=== PATIENT | female | born 1965 | race Caucasian/White ===

== ENCOUNTER 2017-08-05 17:20 | Inpatient (IN) | payer MEDICARE, OTHER, SELFPAY ==
[2017-08-05] VITALS (12 sets, daily range): BP systolic 134–171; BP diastolic 63–85; PULSE 73–88; RESP 15–23; TEMP 36.2–37.2; O2SAT 80–100; BMI 73.2; BMI 74.2
[2017-08-05] MEDS: Ipratropium/Albuterol Sulfate 3 ML AMPUL.NEB INHALATION ×2 (17:57→23:43)
[2017-08-05] MEDS: 0.9% Normal Saline 1,000 ML 150 ML IV (18:06)
[2017-08-05] MEDS: MethylPREDNISolone 125 MG/2 ML Vial IV (18:07)
--- NOTE | 2017-08-05 18:10 | RAD_ITS ---
STUDY: X-RAY CHEST REASON FOR EXAM: Female, 52 years old. SOB / SOA TECHNIQUE: Single frontal view of the chest. COMPARISON: December 12, 2016 FINDINGS: Chronic appearing increased interstitial lung markings. Right lower lobe infiltrate. There is no demonstrated pleural abnormality. Enlarged heart size. Normal mediastinum and negra. Normal visualized pulmonary arteries. There is atherosclerotic calcification of the aortic arch with tortuosity. There are diffuse degenerative changes of the visualized thoracic spine. There is degenerative osteoarthritis of the bilateral shoulders. There is no demonstrated abnormality of the visualized soft tissue structures of the upper abdomen. RAD/Chest PA and Lateral IMPRESSION: Right lower lobe pneumonia. Electronically Signed: Bertrand Noel MD at 18:32 EST , Service support ,
[2017-08-05 18:13] LABS: Absolute Lymphocyte Count 0.93 X10^3/ul (0.83-4.51); Absolute Neutrophil Count 5.3 X10^3/uL (2.0-7.7); Basophil# 0.02 X10^3/uL; Basophil% 0.3 % (0-1); Eosinophil# 0.81 X10^3/uL; Hematocrit 26.3 % (37-47); Hemoglobin 7.1 g/dl (12.0-15.0); Lymphocyte # 0.93 X10^3/ul (4.0); Lymphocyte % 12.6 % (19-41); Mean Corpuscular Hgb 24.7 pg (27.0-32.0); Mean Corpuscular Volume 91.6 fL (81-99); Mean Platelet Vol. 9.4 fl (6.2-12.0); Monocyte# 0.34 X10^3/uL; Monocyte% 4.6 % (0-10); Neutrophil # 5.25 X10^3/uL (2.7-7.7); Platelet Count 187 K/mm3 (150-450); RBC Distribution Width CV 16.6 % (11.6-14.6); Red Blood Count 2.87 M/mm3 (4.2-5.4); White Blood Count 7.4 K/mm3 (4.4-11.0)
[2017-08-05 18:14] LABS: POSITIVE COUNT NO; POSITIVE DIFFERENTIAL NO; POSITIVE MORPHOLOGY NO
[2017-08-05 18:30] LABS: Anion Gap 3 (5-15); BUN 11 mg/dL (7-18); BUN/Creat Ratio 15.5 RATIO (10-20); Calcium,Total 8.2 mg/dL (8.5-10.1); Chloride 107 mmol/L (98-107); Creatinine, Serum 0.71 mg/dL (0.55-1.02); EST Glomerular Filtration Rate 92 mL/min (>60); Est Glom Filt Rate - Afr Amer 111 mL/min (>60); Estimated Creatinine Clearance 66.58 ml/min; Glucose 92 mg/dL (74-106); Potassium 4.3 mmol/L (3.5-5.1); Sodium Level 146 mmol/L (136-145)
[2017-08-05 18:35] LABS: Lactic Acid 1.8 mmol/L (0.4-2.0)
--- NOTE | 2017-08-05 19:53 | ED.RN ---
THIS RN ATTEMPTED TO START LEVAQUIN IV FOR PT, ADVISED PT OF MED TO BE GIVEN. PT STATES I CAN'T TAKE THAT, IT MAKES MY HEART BEAT TOO FAST. NOTIFIED, RABIA CUI, NEW ATB ORDERED.
[2017-08-05] MEDS: Ceftriaxone 1 GM/50 mL Premix x1 IV (20:23)
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
[2017-08-05 21:19] LABS: Color, Urine Yellow (Yellow); Glucose, Dipstick Normal (Normal); Ketone-Dipstick Negative (Negative); Leukocyte Esterase-Dipstick Negative /ul (Negative); Nitrite-Dipstick Negative (Negative); Occult Blood-Urine 10 /ul (Negative); Protein-Dipstick 15 mg/dl (Negative); Specific Gravity, Urine 1.015 (1.002-1.030); Urine Bilirubin Dipstick Negative (Negative); Urine Clarity Cloudy (Clear); Urine Urobilinogen Normal (Normal)
[2017-08-05] MEDS: guaiFENesin 1,200 MG Tablet 1200 MG PO (22:56)
--- NOTE | 2017-08-05 23:34 | ED.DCSUM_ITS ---
- ER Visit Summary Date of Service: 08/05/17 Chief Complaint: Shortness of breath and cough History of Present Illness: The patient is a [address] Mace. She reports that she has shortness of breath is gradually worsened over the course of the past month. She reports that she has a cough over this same timeframe. It is productive yellow sputum without blood. She has had chills, but no fever. She denies any chest pain. She denies any abdominal pain, nausea, vomiting, or diarrhea. States that she has a headache is 7-10 severity and she has had similar headaches in the past. She does complain of generalized weakness. Physical Examination: Vitals: Stable. Afebrile. General: Well-nourished and well-developed. Head: Normocephalic atraumatic. Neck: Supple, no lymphadenopathy. No JVD. Nontender. Cardiovascular: Regular rate and rhythm. No murmurs. Respiratory: No respiratory distress. Mild wheezing bilaterally with decreased air movement Abdominal: Soft, nontender, nondistended, normal bowel sounds. No guarding, rebound, or peritoneal signs. Back: Nontender. Extremities: Nontender, 3+ chronic lymphedema of her lower extremities bilaterally. Skin: Normal color, no rash. Neurologic: Alert and oriented ?3. Cranial nerves II through XII are intact. Normal strength and sensation. Psych: Normal affect. Test Results: Chest x-ray is read by the radiologist as the right lower lobe infiltrate. CBC is marked for hemoglobin 7.1, hematocrit of 26.3, segmented neutrophils 71, lymphocytes of 13, and eosinophils of 11. M7 is more for sodium 146, CO2 36, calcium 8.2. Lactic acid is 1.8. Emergency Department Course and Treatment: The patient's hemoglobin returned I did discuss with her about blood in her stool. She reports that she has had this her whole life. She had a colonoscopy in February [address] Frias that showed old a friable area and the pathology from this was nonspecific. Patient reports at that time he stopped her Eliquis. States that she continues to have blood in her stools at times. She reports last time this occurred was 2 days ago. Treatment Plan: The patient was treated with Rocephin and Zithromax IV. She was typed and crossed for 2 units of packed red blood cells. She is discussed with Dr. Oakes and Dr. Blevins. She will be admitted to the hospital for further wish and treatment. Disposition: Admitted in stable condition Impression: 1. Pneumonia, community-acquired. 2. Anemia. This note was generated with Paperspine dictation software. It may contain incorrect words, spelling, and punctuation that were not noted in review of the chart prior to signing ED Disposition - Plan for ED Patient: Disposition: Acute Care Hospital [facility], [place] Chief Complaint: Shortness of Breath
[2017-08-06] VITALS (21 sets, daily range): BP systolic 123–163; BP diastolic 65–90; PULSE 72–91; RESP 16–20; TEMP 36.2–37.3; O2SAT 93–96
--- NOTE | 2017-08-06 06:25 | CPS ---
pt refused use of cpap
[2017-08-06 07:01] LABS: Bedside Glucose 157 mg/dL (70-110)
[2017-08-06] MEDS: Ipratropium/Albuterol Sulfate 3 ML AMPUL.NEB INHALATION ×4 (07:36→19:38)
[2017-08-06 08:08] LABS: Absolute Lymphocyte Count 0.57 X10^3/ul (0.83-4.51); Absolute Neutrophil Count 7.1 X10^3/uL (2.0-7.7); Basophil# 0.01 X10^3/uL; Basophil% 0.1 % (0-1); Eosinophil# 0.01 X10^3/uL; Eosinophils% 0.1 % (0-5); Hematocrit 29.6 % (37-47); Hemoglobin 8.3 g/dl (12.0-15.0); Lymphocyte # 0.57 X10^3/ul (4.0); Lymphocyte % 7.2 % (19-41); Mean Corpuscular Hgb 25.6 pg (27.0-32.0); Mean Corpuscular Volume 91.4 fL (81-99); Monocyte% 2.5 % (0-10); Neutrophil # 7.05 X10^3/uL (2.7-7.7); Neutrophil % 89.3 % (47-70); Platelet Count 208 K/mm3 (150-450); RBC Distribution Width CV 16.1 % (11.6-14.6); RBC Distribution Width SD 52.1 fl (35.1-43.9); Red Blood Count 3.24 M/mm3 (4.2-5.4); White Blood Count 7.9 K/mm3 (4.4-11.0)
[2017-08-06 08:15] LABS: Anion Gap 3 (5-15); BUN 11 mg/dL (7-18); BUN/Creat Ratio 14.5 RATIO (10-20); Calcium,Total 7.7 mg/dL (8.5-10.1); Chloride 106 mmol/L (98-107); Creatinine, Serum 0.76 mg/dL (0.55-1.02); EST Glomerular Filtration Rate 85 mL/min (>60); Est Glom Filt Rate - Afr Amer 103 mL/min (>60); Glucose 140 mg/dL (74-106); Potassium 4.6 mmol/L (3.5-5.1); Sodium Level 145 mmol/L (136-145)
[2017-08-06 08:22] LABS: POSITIVE COUNT NO; POSITIVE DIFFERENTIAL YES; POSITIVE MORPHOLOGY NO
[2017-08-06 08:23] LABS: Differential Indicated SCAN CRITERIA MET
[2017-08-06 08:24] LABS: Hemoglobin A1c 5.3 % (4.2-6.3)
[2017-08-06] MEDS: Ferrous Sulfate 325 MG Tablet PO ×2 (09:17→17:06)
[2017-08-06] MEDS: Lisinopril 5 MG Tablet PO (09:26)
[2017-08-06] MEDS: guaiFENesin 1,200 MG Tablet 1200 MG PO ×2 (09:26→22:08)
[2017-08-06] MEDS: Tolterodine Tartrate 4 MG CAP.SA PO (09:26)
[2017-08-06] MEDS: Metoprolol(XL)Succ 25 MG Tablet PO (09:26)
[2017-08-06] MEDS: Ceftriaxone 1 GM/50 ML BAG IV (09:51)
--- NOTE | 2017-08-06 10:54 | PCM.PN.HOSP ---
Patient Problems: Active and Suspected Problems acute on chronic blood loss anemia (Acute) CAP (community acquired pneumonia) (Acute) Lower GI bleed (Acute) CHRONIC Subjective: Patient is a 51-year-old lady with multiple comorbidities admitted with shortness of breath studies obtained in the emergency department came back consistent with right lower lobe pneumonia admitted to monitored bed for subsequent management Objective: GENERAL: cooperative HEENT: Clear conjunctiva, NECK; supple, normal thyroid, CHEST: Diminished to auscultation bilaterally, HEART: Regular S1 S2, no audible murmurs ABDOMEN: Nondistended, nontender RECTAL: deferred EXTREMITIES: No clubbing, no cyanosis. COMMUNITY AFFAIRS MANAGER: Awake, oriented to time, place and person, no lateralizing signs. SKIN: No erythema, Vitals/I&O's: Vital Signs Temp Pulse Resp BP Pulse Ox 98.9 F 81 18 134/71 H 95 08/06/17 09:25 08/06/17 09:26 08/06/17 09:25 08/06/17 09:26 08/06/17 09:25 Oxygen Flow Rate 4 Oxygen Delivery Method Nasal Cannula Weight: 172.4 kg Body Mass Index (BMI) 74.2 Intake and Output for Last 24 Hours 08/04/17 08/05/17 08/06/17 23:59 23:59 23:59 Intake Total 1426 / 1426 Output Total 675 / 675 Balance 751 / 751 Microbiology Past 72 Hours 08/05/17 21:20 Mucosa - Nose Respiratory Panel (PCR) - Final 08/05/17 23:00 Sputum, Expectorated/Coughed Gram Stain - Preliminary 08/05/17 21:10 Urine, Clean Catch Streptococcus pneumoniae Antigen (M - Final 08/05/17 21:10 Urine, Clean Catch Legionella Antigen - Final Laboratory Results 08/05/17 21:10: Urine Color Yellow, Urine Clarity Cloudy, Urine pH 6.0, Ur Specific [place] 1.015, Urine Protein 15 H, Urine Glucose (UA) Normal, Urine Ketones Negative, Urine Occult Blood 10 H, Urine Nitrite Negative, Urine Bilirubin Negative, Urine Urobilinogen Normal, Ur Leukocyte Esterase Negative 08/06/17 06:56: POC Glucose 157 H 08/06/17 07:45: WBC 7.9, RBC 3.24 L, Hgb 8.3 L, Hct 29.6 L, MCV 91.4, MCH 25.6 L, MCHC 28.0 L, RDW 16.1 H, RDW Differential 52.1 H, Plt Count 208, MPV 9.0, Immature Gran % (Auto) 0.800, Neut % (Auto) 89.3 H, Lymph % (Auto) 7.2 L, [place] % (Auto) 2.5, Eos % (Auto) 0.1, Baso % (Auto) 0.1, Absolute Neuts (auto) 7.1, Absolute Lymphs (auto) 0.57 L, Total Counted Not Reportable, Differential Comment COMMENT 08/06/17 07:45: Hemoglobin A1c 5.3 08/06/17 07:45: Sodium 145, Potassium 4.6, Chloride 106, Carbon Dioxide 36.0 H, Anion Gap 3 L, BUN 11, Creatinine 0.76, Estim Creat Clear Calc 62.20, Est GFR (MDRD) Af Amer 103, Est GFR (MDRD) Non-Af 85, BUN/Creatinine Ratio 14.5, Glucose 140 H, Calcium 7.7 L Current Medications Acetaminophen (Tylenol) 650 mg PO Q6H PRN PRN PRN Reason: pain/fever Al Hydroxide/Mg Hydroxide (Mylanta Ii) 30 ml PO Q6H PRN PRN PRN Reason: Gastric Burning Albuterol Sulfate (Ventolin Aerosols) 2.5 mg INHALATION Q2H PRN PRN PRN Reason: SHORTNESS OF BREATH Albuterol/Ipratropium (Duoneb) 3 [facility] Last Admin: 08/06/17 10:30 Dose: 3 ml Bisacodyl (Dulcolax) 10 mg RECTAL DAILY PRN PRN PRN Reason: Constipation Dextrose (D50w Syringe) 0 gm IV X1 PRN; Protocol PRN Reason: Hypoglycemia Dicyclomine HCl (Bentyl) 20 mg PO Q6H PRN PRN PRN Reason: abd pain Docusate Sodium (Colace) 200 mg PO BID PRN PRN PRN Reason: Constipation Ferrous Sulfate (Ferrous Sulfate) [id number] Last Admin: 08/06/17 09:17 Dose: 325 mg Glucagon () 1 mg IM .X1 PRN PRN Reason: Hypoglycemia Guaifenesin (Mucinex) 1,200 mg PO BID ON LICENSE OF [facility] Last Admin: 08/06/17 09:26 Dose: 1,200 mg Sodium Chloride () 1,000 mls @ 100 mls/hr IV .Q10H ON LICENSE OF [facility] Last Admin: 08/05/17 22:05 Dose: Not Given Pantoprazole Sodium 40 mg/ (Sodium Chloride) 110 mls @ 330 mls/hr IV Q24 ON LICENSE OF [facility] Last Admin: 08/06/17 09:18 Dose: 330 mls/hr Azithromycin 500 mg/ Dextrose 255 mls @ 250 mls/hr IV Q24 ON LICENSE OF [facility] Stop: 08/07/17 11:02 Ceftriaxone Sodium (Rocephin) 1 gm in 50 mls @ 100 mls/hr IV Q24 ON LICENSE OF [facility] Last Admin: 08/06/17 09:51 Dose: 100 mls/hr Insulin Aspart (Novolog Flexpen (Bkc)) 0 units SC ACHS ON LICENSE OF [facility] PRN Reason: Protocol Last Admin: 08/06/17 09:17 Dose: 1 u Lisinopril (Zestril) 5 mg PO DAILY ON LICENSE OF [facility] Last Admin: 08/06/17 09:26 Dose: 5 mg Metoprolol Succinate (Toprol Xl (Beta Vikki)) 25 mg PO DAILY ON LICENSE OF [facility] Last Admin: 08/06/17 09:26 Dose: 25 mg Morphine Sulfate (Morphine) 1 - 2 mg IV Q4H PRN PRN PRN Reason: SEVERE PAIN (6-10/10) Ondansetron HCl (Zofran) 4 mg IV Q8H PRN PRN PRN Reason: NAUSEA Oxycodone HCl (Oxyir) 5 mg PO Q4H PRN PRN PRN Reason: Moderate Pain (pain scale 4-5) Polyethylene Glycol (Miralax) 17 gm PO DAILY ON LICENSE OF [facility] Last Admin: 08/06/17 09:27 Dose: Not Given Sodium Chloride () 5 - 30 ml IV UD PRN PRN Reason: SALINE FLUSH Tolterodine Tartrate (Detrol La) 4 mg PO DAILY ON LICENSE OF [facility] Last Admin: 08/06/17 09:26 Dose: 4 mg Assessment/Plan Active and Suspected Problems acute on chronic blood loss anemia (Acute) CAP (community acquired pneumonia) (Acute) Lower GI bleed (Acute) CHRONIC Patient is a 51-year-old lady with multiple comorbidities admitted with shortness of breath studies obtained in the emergency department came back consistent with right lower lobe pneumonia admitted to monitored bed for subsequent management 1. Community-acquired pneumonia: Placed on aerosols, antibiotics - Rocephin and Zithromax. Oxygen titrated to keep pulse ox >92%. Blood and sputum cultures sent results pending 2. Chronic respiratory failure secondary to obesity hypoventilation syndrome patient is on baseline oxygen 4 L at night 3. Diabetes mellitus type 2 continued with home regimen in addition to Accu-Cheks before meals and at bedtime with sliding scale coverage 4. Morbid obesity with BMI of 74 lifestyle modification including weight loss advised to discuss with patient to follow-up with PCP for referral for consideration for gastric bypass 5. Mild intermittent asthma currently stable albuterol as needed 6. Obstructive sleep apnea 7. Nonobstructing left renal calculus 8. Degenerative joint disease 9. Fatty liver do suspect nonalcoholic fatty liver disease from patient's morbid obesity as well as diabetes mellitus type 2 10. Chronic bilateral lower extremity lymphedema from venous insufficiency 11. Onychomycosis 12. DVT prophylaxis: Lovenox 40 mg SC every 12 Clinical Impression(s) from Imaging Studies Chest X-Ray 08/05/17 18:10 IMPRESSION: Right lower lobe pneumonia. Electronically Signed: Bertrand Noel MD at 18:32 EST , Service support , ADDENDUM: 08/05/17 1839 IMPRESSION: Right lower lobe pneumonia. Electronically Signed: Bertrand Noel MD at 18:32 EST , Service support , Code Visit Inpatient E&M: 17336 [facility] Hosp L3
[2017-08-06] MEDS: 0.9% Normal Saline 1,000 ML 100 ML IV (11:47)
[2017-08-06 12:11] LABS: Bedside Glucose 197 mg/dL (70-110)
[2017-08-06 14:34] LABS: Hematocrit 29.4 % (37-47); Hemoglobin 8.1 g/dl (12.0-15.0)
--- NOTE | 2017-08-06 15:09 | CASEMGMT ---
ZHENG DOLAN ASSESSMENT: ADM dx: CAP and Anemia LACE Strata: 3 RN MAGDALENO assessment complete, see attached link for full assessment. Transition Planning: Patient lives with spouse and dtr's family in single wide mobile home. Patient dtr and spouse provide transportation since patient does not drive. The patient was in a f[facility] ([facility]) over the summer. The patient's goal is to return home at discharge. Prior to admission her dtr assisted with bathing, cooking, cleaning, and transportation. ZHENG DOLAN will continue to follow for safe transition planning. Disposition Plan: Anticipate home with support of family Written handoff for follow-up provided to CHARLEY Amaya RN, CM. [place], BSN, RN-BC, CCM
[2017-08-06 17:40] LABS: Bedside Glucose 121 mg/dL (70-110)
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
[2017-08-06 21:41] LABS: Hemoglobin 7.7 g/dl (12.0-15.0)
[2017-08-06 22:15] LABS: Bedside Glucose 118 mg/dL (70-110)
[2017-08-07] VITALS (18 sets, daily range): BP systolic 138–155; BP diastolic 69–84; PULSE 75–96; RESP 16–24; TEMP 36.5–37.3; O2SAT 92–100; BMI 74.2
[2017-08-07 01:32] LABS: Hematocrit 29.2 % (37-47)
--- NOTE | 2017-08-07 05:00 | CPS ---
pt does not want to wear our cpap unit, non compliant with home unit .
[2017-08-07 06:16] LABS: Bedside Glucose 120 mg/dL (70-110)
[2017-08-07 06:35] LABS: Hematocrit 28.8 % (37-47); Hemoglobin 7.8 g/dl (12.0-15.0); Mean Corp Hgb Conc 27.1 g/gl (32-36); Mean Corpuscular Hgb 25.5 pg (27.0-32.0); Mean Corpuscular Volume 94.1 fL (81-99); Mean Platelet Vol. 9.4 fl (6.2-12.0); Platelet Count 204 K/mm3 (150-450); RBC Distribution Width CV 16.8 % (11.6-14.6); Red Blood Count 3.06 M/mm3 (4.2-5.4); White Blood Count 7.6 K/mm3 (4.4-11.0)
[2017-08-07 06:39] LABS: Scan Indicated on CBC? Y/N NO
[2017-08-07 06:56] LABS: Anion Gap 7 (5-15); BUN 15 mg/dL (7-18); BUN/Creat Ratio 17.6 RATIO (10-20); Calcium,Total 7.9 mg/dL (8.5-10.1); Chloride 104 mmol/L (98-107); Creatinine, Serum 0.85 mg/dL (0.55-1.02); EST Glomerular Filtration Rate 75 mL/min (>60); Est Glom Filt Rate - Afr Amer 90 mL/min (>60); Estimated Creatinine Clearance 55.61 ml/min; Glucose 114 mg/dL (74-106); Magnesium 2.2 mg/dL (1.6-2.6); Sodium Level 146 mmol/L (136-145)
[2017-08-07] MEDS: Ferrous Sulfate 325 MG Tablet PO ×2 (08:15→16:39)
[2017-08-07] MEDS: Lisinopril 5 MG Tablet PO (09:28)
[2017-08-07] MEDS: Metoprolol(XL)Succ 25 MG Tablet PO (09:28)
[2017-08-07] MEDS: guaiFENesin 1,200 MG Tablet 1200 MG PO ×2 (09:29→22:12)
[2017-08-07] MEDS: Tolterodine Tartrate 4 MG CAP.SA PO (09:29)
[2017-08-07] MEDS: Ceftriaxone 1 GM/50 ML BAG IV (09:48)
--- NOTE | 2017-08-07 10:38 | PCM.PN.HOSP ---
Patient Problems: Active and Suspected Problems acute on chronic blood loss anemia (Acute) CAP (community acquired pneumonia) (Acute) Lower GI bleed (Acute) CHRONIC Subjective: Patient seen complains of breathing being more labored than the day prior. Underwent EGD this morning by Dr. Blevins with no identifiable source of bleeding found. Repeat check history ordered patient administered with 1 dose of Lasix Objective: GENERAL: cooperative; dyspneic at rest HEENT: Clear conjunctiva, NECK; supple, normal thyroid, CHEST: Diminished to auscultation bilaterally, HEART: Regular S1 S2, no audible murmurs ABDOMEN: Nondistended, nontender RECTAL: deferred EXTREMITIES: No clubbing, no cyanosis. DESIGNATED BROKER: Awake, oriented to time, place and person, no lateralizing signs. SKIN: No erythema, Vitals/I&O's: Vital Signs Temp Pulse Resp BP Pulse Ox 98 F 75 18 151/78 H 95 08/07/17 08:15 08/07/17 09:28 08/07/17 08:15 08/07/17 09:28 08/07/17 08:15 Oxygen Flow Rate 4 Oxygen Delivery Method Nasal Cannula Weight: 172.4 kg Body Mass Index (BMI) 74.2 Intake and Output for Last 24 Hours 08/05/17 08/06/17 08/07/17 23:59 23:59 23:59 Intake Total 2906 / 2906 Output Total 1275 / 1275 Balance 1631 / 1631 Microbiology Past 72 Hours 08/05/17 23:00 Sputum, Expectorated/Coughed Gram Stain - Final 08/05/17 23:00 Sputum, Expectorated/Coughed Respiratory Culture - Preliminary Appears to be normal respiratory mehran. Further studies to follow. 08/05/17 21:20 Mucosa - Nose Respiratory Panel (PCR) - Final 08/05/17 21:10 Urine, Clean Catch Streptococcus pneumoniae Antigen (M - Final 08/05/17 21:10 Urine, Clean Catch Legionella Antigen - Final Laboratory Results 08/06/17 11:50: POC Glucose 197 H 08/06/17 13:40: Hgb 8.1 L, Hct 29.4 L 08/06/17 17:05: POC Glucose 121 H 08/06/17 21:08: Hgb 7.7 L, Hct 28.0 L 08/06/17 22:05: POC Glucose 118 H 08/07/17 01:20: Hgb 8.0 L, Hct 29.2 L 08/07/17 05:50: WBC 7.6, RBC 3.06 L, Hgb 7.8 L, Hct 28.8 L, MCV 94.1, MCH 25.5 L, MCHC 27.1 L, RDW 16.8 H, RDW Differential 55.0 H, Plt Count 204, MPV 9.4 08/07/17 05:50: Sodium 146 H, Potassium 4.0, Chloride 104, Carbon Dioxide 35.0 H, Anion Gap 7, BUN 15, Creatinine 0.85, Estim Creat Clear Calc 55.61, Est GFR (MDRD) Af Amer 90, Est GFR (MDRD) Non-Af 75, BUN/Creatinine Ratio 17.6, Glucose 114 H, Calcium 7.9 L, Magnesium 2.2 08/07/17 06:08: POC Glucose 120 H Current Medications Acetaminophen (Tylenol) 650 mg PO Q6H PRN PRN PRN Reason: pain/fever Al Hydroxide/Mg Hydroxide (Mylanta Ii) 30 ml PO Q6H PRN PRN PRN Reason: Gastric Burning Albuterol Sulfate (Ventolin Aerosols) 2.5 mg INHALATION Q2H PRN PRN PRN Reason: SHORTNESS OF BREATH Albuterol/Ipratropium (Duoneb) 3 ml INHALATION Q4HWA.RT [facility] [place] Last Admin: 08/07/17 07:04 Dose: Not Given Bisacodyl (Dulcolax) 10 mg RECTAL DAILY PRN PRN PRN Reason: Constipation Dextrose (D50w Syringe) 0 gm IV X1 PRN; Protocol PRN Reason: Hypoglycemia Dicyclomine HCl (Bentyl) 20 mg PO Q6H PRN PRN PRN Reason: abd pain Docusate Sodium (Colace) 200 mg PO BID PRN PRN PRN Reason: Constipation Ferrous S[facility] ([facility] Sulfate) [facility] Last Admin: 08/07/17 08:15 Dose: 325 mg Furosemide (Lasix) 80 mg IV X1 ONE Stop: 08/07/17 10:39 Glucagon () 1 mg IM .X1 PRN PRN Reason: Hypoglycemia Guaifenesin (Mucinex) 1,200 mg PO BID [facility] [place] Last Admin: 08/07/17 09:29 Dose: 1,200 mg Azithromycin 500 mg/ Dextrose 255 mls @ 250 mls/hr IV Q24 [facility] Stop: 08/07/17 11:02 Last Admin: 08/07/17 10:24 Dose: 250 mls/hr Ceftriaxone Sodium (Rocephin) 1 gm in 50 mls @ 100 mls/hr IV Q24 [facility] [place] Last Admin: 08/07/17 09:48 Dose: 100 mls/hr Insulin Aspart (Novolog Flexpen (Bkc)) 0 units SC ACHS [facility] [place] PRN Reason: Protocol Last Admin: 08/07/17 08:02 Dose: Not Given Lisinopril (Zestril) 5 mg PO DAILY [facility] [place] Last Admin: 08/07/17 09:28 Dose: 5 mg Metoprolol Succinate (Toprol Xl (Beta Vikki)) 25 mg PO DAILY [facility] [place] Last Admin: 08/07/17 09:28 Dose: 25 mg Morphine Sulfate (Morphine) 1 - 2 mg IV Q4H PRN PRN PRN Reason: SEVERE PAIN (6-10/10) Ondansetron HCl (Zofran) 4 mg IV Q8H PRN PRN PRN Reason: NAUSEA Oxycodone HCl (Oxyir) 5 mg PO Q4H PRN PRN PRN Reason: Moderate Pain (pain scale 4-5) Pantoprazole Sodium (Protonix) 40 mg PO BID [facility] [place] Polyethylene Glycol (Miralax) 17 gm PO DAILY [facility] Last Admin: 08/07/17 09:29 Dose: Not Given Sodium Chloride () 5 - 30 ml IV UD PRN PRN Reason: SALINE FLUSH Tolterodine Tartrate (Detrol La) 4 mg PO DAILY [facility] [place] Last Admin: 08/07/17 09:29 Dose: 4 mg Assessment/Plan Active and Suspected Problems acute on chronic blood loss anemia (Acute) CAP (community acquired pneumonia) (Acute) Lower GI bleed (Acute) CHRONIC Patient is a 51-year-old lady with multiple comorbidities admitted with shortness of breath studies obtained in the emergency department came back consistent with right lower lobe pneumonia admitted to monitored bed for subsequent management patient was also found to be anemic on admission with hemoglobin of 7.1 1. Community-acquired pneumonia: Placed on aerosols, antibiotics - Rocephin and Zithromax. Oxygen titrated to keep pulse ox >92%. Blood and sputum cultures sent results pending results rather been slow ordered repeat chest x-ray 2. Symptomatic anemia: Anemia secondary to anemia of chronic disorder. Patient was transfused with 2 units PRBC with consultation placed to general surgery patient underwent EGD on 08/07/2017 with no identifiable source of bleeding found 3. Chronic respiratory failure secondary to obesity hypoventilation syndrome patient is on baseline oxygen 4 L at night 3. Diabetes mellitus type 2 continued with home regimen in addition to Accu-Cheks before meals and at bedtime with sliding scale coverage 5. Mild intermittent asthma currently stable albuterol as needed 6. Obstructive sleep apnea 7. Nonobstructing left renal calculus 8. Degenerative joint disease 9. Fatty liver do suspect nonalcoholic fatty liver disease from patient's morbid obesity as well as diabetes mellitus type 2 10. Chronic bilateral lower extremity lymphedema from venous insufficiency 11. Onychomycosis 12. Morbid obesity with BMI of 74 lifestyle modification including weight loss advised to discuss with patient to follow-up with PCP for referral for consideration for gastric bypass 13. DVT prophylaxis: Lovenox 40 mg SC every 12 Code Visit Inpatient E&M: [id number] [facility] L3
--- NOTE | 2017-08-07 10:41 | PN_ITS ---
Patient Problems: Active and Suspected Problems acute on chronic blood loss anemia (Acute) CAP (community acquired pneumonia) (Acute) Lower GI bleed (Acute) CHRONIC Subjective: Patient seen complains of breathing being more labored than the day prior. Underwent EGD this morning by Dr. Blevins with no identifiable source of bleeding found. Repeat check history ordered patient administered with 1 dose of Lasix Objective: GENERAL: cooperative; dyspneic at rest HEENT: Clear conjunctiva, NECK; supple, normal thyroid, CHEST: Diminished to auscultation bilaterally, HEART: Regular S1 S2, no audible murmurs ABDOMEN: Nondistended, nontender RECTAL: deferred EXTREMITIES: No clubbing, no cyanosis. GRADES 9 THROUGH 12 TEACHER: Awake, oriented to time, place and person, no lateralizing signs. SKIN: No erythema, Vitals/I&O's: Vital Signs Temp Pulse Resp BP Pulse Ox 98 F 75 18 151/78 H 95 08/07/17 08:15 08/07/17 09:28 08/07/17 08:15 08/07/17 09:28 08/07/17 08:15 Oxygen Flow Rate 4 Oxygen Delivery Method Nasal Cannula Weight: 172.4 kg Body Mass Index (BMI) 74.2 Intake and Output for Last 24 Hours 08/05/17 08/06/17 08/07/17 23:59 23:59 23:59 Intake Total 2906 / 2906 Output Total 1275 / 1275 Balance 1631 / 1631 Microbiology Past 72 Hours 08/05/17 23:00 Sputum, Expectorated/Coughed Gram Stain - Final 08/05/17 23:00 Sputum, Expectorated/Coughed Respiratory Culture - Preliminary Appears to be normal respiratory mehran. Further studies to follow. 08/05/17 21:20 Mucosa - Nose Respiratory Panel (PCR) - Final 08/05/17 21:10 Urine, Clean Catch Streptococcus pneumoniae Antigen (M - Final 08/05/17 21:10 Urine, Clean Catch Legionella Antigen - Final Laboratory Results 08/06/17 11:50: POC Glucose 197 H 08/06/17 13:40: Hgb 8.1 L, Hct 29.4 L 08/06/17 17:05: POC Glucose 121 H 08/06/17 21:08: Hgb 7.7 L, Hct 28.0 L 08/06/17 22:05: POC Glucose 118 H 08/07/17 01:20: Hgb 8.0 L, Hct 29.2 L 08/07/17 05:50: WBC 7.6, RBC 3.06 L, Hgb 7.8 L, Hct 28.8 L, MCV 94.1, MCH 25.5 L , MCHC 27.1 L, RDW 16.8 H, RDW Differential 55.0 H, Plt Count 204, MPV 9.4 08/07/17 05:50: Sodium 146 H, Potassium 4.0, Chloride 104, Carbon Dioxide 35.0 H , Anion Gap 7, BUN 15, Creatinine 0.85, Estim Creat Clear Calc 55.61, Est GFR ( MDRD) Af Amer 90, Est GFR (MDRD) Non-Af 75, BUN/Creatinine Ratio 17.6, Glucose 114 H, Calcium 7.9 L, Magnesium 2.2 08/07/17 06:08: POC Glucose 120 H Current Medications Acetaminophen (Tylenol) 650 mg PO Q6H PRN PRN PRN Reason: pain/fever Al Hydroxide/Mg Hydroxide (Mylanta Ii) 30 ml PO Q6H PRN PRN PRN Reason: Gastric Burning Albuterol Sulfate (Ventolin Aerosols) 2.5 mg INHALATION Q2H PRN PRN PRN Reason: SHORTNESS OF BREATH Albuterol/Ipratropium (Duoneb) 3 ml INHALATION Q4HWA.RT [facility] Last Admin: 08/07/17 07:04 Dose: Not Given Bisacodyl (Dulcolax) 10 mg RECTAL DAILY PRN PRN PRN Reason: Constipation Dextrose (D50w Syringe) 0 gm IV X1 PRN; Protocol PRN Reason: Hypoglycemia Dicyclomine HCl (Bentyl) 20 mg PO Q6H PRN PRN PRN Reason: abd pain Docusate Sodium (Colace) 200 mg PO BID PRN PRN PRN Reason: Constipation Ferrous Sulfate ([facility]) [facility] Admin: 08/07/17 08:15 Dose: 325 mg Furosemide (Lasix) 80 mg IV X1 ONE Stop: 08/07/17 10:39 Glucagon () 1 mg IM .X1 PRN PRN Reason: Hypoglycemia Guaifenesin (Mucinex) 1,200 mg PO BID [facility] Last Admin: 08/07/17 09:29 Dose: 1,200 mg Azithromycin 500 mg/ Dextrose 255 mls @ 250 mls/hr IV Q24 [facility] Stop: 08/07/17 11:02 Last Admin: 08/07/17 10:24 Dose: 250 mls/hr Ceftriaxone Sodium (Rocephin) 1 gm in 50 mls @ 100 mls/hr IV Q24 [facility] Last Admin: 08/07/17 09:48 Dose: 100 mls/hr Insulin Aspart (Novolog Flexpen (Bkc)) 0 units SC ACHS [facility] PRN Reason: Protocol Last Admin: 08/07/17 08:02 Dose: Not Given Lisinopril (Zestril) 5 mg PO DAILY [facility] Last Admin: 08/07/17 09:28 Dose: 5 mg Metoprolol Succinate (Toprol Xl (Beta Vikki)) 25 mg PO DAILY [facility] Last Admin: 08/07/17 09:28 Dose: 25 mg Morphine Sulfate (Morphine) 1 - 2 mg IV Q4H PRN PRN PRN Reason: SEVERE PAIN (6-10/10) Ondansetron HCl (Zofran) 4 mg IV Q8H PRN PRN PRN Reason: NAUSEA Oxycodone HCl (Oxyir) 5 mg PO Q4H PRN PRN PRN Reason: Moderate Pain (pain scale 4-5) Pantoprazole Sodium (Protonix) 40 mg PO BID [facility] Polyethylene Glycol (Miralax) 17 gm PO DAILY [facility] Last Admin: 08/07/17 09:29 Dose: Not Given Sodium Chloride () 5 - 30 ml IV UD PRN PRN Reason: SALINE FLUSH Tolterodine Tartrate (Detrol La) 4 mg PO DAILY [facility] Last Admin: 08/07/17 09:29 Dose: 4 mg Assessment/Plan Active and Suspected Problems acute on chronic blood loss anemia (Acute) CAP (community acquired pneumonia) (Acute) Lower GI bleed (Acute) CHRONIC Patient is a 51-year-old lady with multiple comorbidities admitted with shortness of breath studies obtained in the emergency department came back consistent with right lower lobe pneumonia admitted to monitored bed for subsequent management patient was also found to be anemic on admission with hemoglobin of 7.1 1. Community-acquired pneumonia: Placed on aerosols, antibiotics - Rocephin and Zithromax. Oxygen titrated to keep pulse ox >92%. Blood and sputum cultures sent results pending results rather been slow ordered repeat chest x- ray 2. Symptomatic anemia: Anemia secondary to anemia of chronic disorder. Patient was transfused with 2 units PRBC with consultation placed to general surgery patient underwent EGD on 08/07/2017 with no identifiable source of bleeding found 3. Chronic respiratory failure secondary to obesity hypoventilation syndrome patient is on baseline oxygen 4 L at night 3. Diabetes mellitus type 2 continued with home regimen in addition to Accu- Cheks before meals and at bedtime with sliding scale coverage 5. Mild intermittent asthma currently stable albuterol as needed 6. Obstructive sleep apnea 7. Nonobstructing left renal calculus 8. Degenerative joint disease 9. Fatty liver do suspect nonalcoholic fatty liver disease from patient's morbid obesity as well as diabetes mellitus type 2 10. Chronic bilateral lower extremity lymphedema from venous insufficiency 11. Onychomycosis 12. Morbid obesity with BMI of 74 lifestyle modification including weight loss advised to discuss with patient to follow-up with PCP for referral for consideration for gastric bypass 13. DVT prophylaxis: Lovenox 40 mg SC every 12 Code Visit Inpatient E&M: 60253 [facility] L3
[2017-08-07] MEDS: Ipratropium/Albuterol Sulfate 3 ML AMPUL.NEB INHALATION ×3 (10:44→19:13)
[2017-08-07 11:02] LABS: Hematocrit 29.6 % (37-47); Hemoglobin 8.1 g/dl (12.0-15.0)
[2017-08-07] MEDS: Furosemide 100 MG/10 ML Vial 80 MG IV (11:40)
[2017-08-07 12:46] LABS: Bedside Glucose 118 mg/dL (70-110)
[2017-08-07 17:11] LABS: Bedside Glucose 114 mg/dL (70-110)
[2017-08-07 20:17] LABS: Hematocrit 29.2 % (37-47); Hemoglobin 8.1 g/dl (12.0-15.0)
[2017-08-07] MEDS: Pantoprazole Sodium 40 MG Tablet PO (22:12)
[2017-08-07] MEDS: 0.9% NaCl Peripheral Flush Adult/Peds IV (22:13)
[2017-08-07 22:16] LABS: Bedside Glucose 140 mg/dL (70-110)
[2017-08-08] VITALS (9 sets, daily range): BP systolic 139–155; BP diastolic 68–72; PULSE 76–89; RESP 16; TEMP 37–37.3; O2SAT 93–96
[2017-08-08 06:22] LABS: Hematocrit 29.2 % (37-47); Mean Corp Hgb Conc 27.4 g/gl (32-36); Mean Corpuscular Hgb 25.5 pg (27.0-32.0); Mean Platelet Vol. 9.4 fl (6.2-12.0); Platelet Count 177 K/mm3 (150-450); RBC Distribution Width CV 16.5 % (11.6-14.6); RBC Distribution Width SD 52.9 fl (35.1-43.9); Red Blood Count 3.14 M/mm3 (4.2-5.4); White Blood Count 6.5 K/mm3 (4.4-11.0)
[2017-08-08 06:24] LABS: Scan Indicated on CBC? Y/N NO
[2017-08-08 06:30] LABS: Anion Gap 3 (5-15); BUN 14 mg/dL (7-18); BUN/Creat Ratio 18.4 RATIO (10-20); Calcium,Total 8.3 mg/dL (8.5-10.1); Chloride 96 mmol/L (98-107); Creatinine, Serum 0.76 mg/dL (0.55-1.02); EST Glomerular Filtration Rate 85 mL/min (>60); Est Glom Filt Rate - Afr Amer 103 mL/min (>60); Glucose 126 mg/dL (74-106); Potassium 3.6 mmol/L (3.5-5.1); Sodium Level 140 mmol/L (136-145)
[2017-08-08] MEDS: Ipratropium/Albuterol Sulfate 3 ML AMPUL.NEB INHALATION ×2 (06:57→10:49)
[2017-08-08 07:00] LABS: Bedside Glucose 122 mg/dL (70-110)
[2017-08-08] MEDS: Tolterodine Tartrate 4 MG CAP.SA PO (08:44)
[2017-08-08] MEDS: Ferrous Sulfate 325 MG Tablet PO (08:44)
[2017-08-08] MEDS: Metoprolol(XL)Succ 25 MG Tablet PO (08:45)
[2017-08-08] MEDS: Pantoprazole Sodium 40 MG Tablet PO (08:45)
[2017-08-08] MEDS: guaiFENesin 1,200 MG Tablet 1200 MG PO (08:45)
[2017-08-08] MEDS: Lisinopril 5 MG Tablet PO (08:45)
[2017-08-08] MEDS: Ceftriaxone 1 GM/50 ML BAG IV (08:48)
[2017-08-08] MEDS: 0.9% NaCl Peripheral Flush Adult/Peds IV ×2 (08:49→09:49)
--- NOTE | 2017-08-08 09:01 | PCM.DC ---
- Discharge Diagnoses Current Active Problems: Current Active and Chronic Problems acute on chronic blood loss anemia (Acute) CAP (community acquired pneumonia) (Acute) Lower GI bleed (Acute) CHRONIC You will use the following diet at home:: No restrictions Allergies/Adverse Reactions: Allergies latex Allergy (Verified 08/05/17 21:19) Rash levofloxacin [From Levaquin] Adverse Reaction (Verified 08/05/17 21:19) SPEEDS UP MY HEART AND SHUTS DOWN MY KIDNEYS mushrooms Allergy (Uncoded 08/05/17 21:19) Anaphylaxis STRAWBERRIES Allergy (Uncoded 08/05/17 21:19) Rash Medications to take at Discharge Albuterol Sulfate [Ventolin Hfa] 2 puff INHALATION Q4H PRN PRN 01/08/17 Pantoprazole Sodium [Protonix] 40 mg PO DAILY 02/13/17 Lisinopril [Prinivil] 5 mg PO DAILY 03/06/17 Metoprolol(XL)Succ [Toprol Xl (Beta Vikki)] 25 mg PO DAILY 03/06/17 Acetaminophen [Tylenol Tablet] 650 mg PO Q6H PRN PRN 03/10/17 Dicyclomine HCl [Bentyl] 20 mg PO Q6H PRN PRN 03/10/17 Glimepiride [Amaryl] 2 tab PO DAILY 08/05/17 Hydrochlorothiazide [Hctz] 25 mg PO DAILY 08/05/17 Multivitamin [Daily Multiple Vitamin] 1 each PO 08/05/17 Oxybutynin Chloride [Ditropan Xl] 15 mg PO DAILY 08/05/17 Cefdinir [Omnicef [equiv]] 300 mg PO Q12H #14 cap 08/08/17 Docusate Sodium [Colace] 200 mg PO BID PRN #60 cap 08/08/17 Ferrous Sulfate 325 mg PO DAILY #60 tab 08/08/17 Guaifenesin [Mucinex] 1,200 mg PO BID #20 tab 08/08/17 The following prescriptions were given: Cefdinir [Omnicef [equiv]] 300 mg PO Q12H #14 cap Docusate Sodium [Colace] 200 mg PO BID PRN #60 cap Ferrous Sulfate 325 mg PO DAILY #60 tab Guaifenesin [Mucinex] 1,200 mg PO BID #20 tab Primary Care Physician: Merrick Mace MD [Primary Care Provider] - Please follow up with your Primary Care Physician in: in 1-2 weeks Proposed Discharge Date: 08/08/17
--- NOTE | 2017-08-08 09:03 | PCM.DC.SUM ---
Discharge Date and Diagnosis - Problem List Patient Problems: Active and Suspected Problems acute on chronic blood loss anemia (Acute) CAP (community acquired pneumonia) (Acute) Lower GI bleed (Acute) CHRONIC Date of Admission: 08/05/17 Date of Discharge: 08/08/17 - Primary Discharge Diagnosis Active and Suspected Problems acute on chronic blood loss anemia (Acute) CAP (community acquired pneumonia) (Acute) Lower GI bleed (Acute) CHRONIC - Secondary Discharge Diagnosis Chronic Problems Wide-complex tachycardia (Chronic) Chronic diastolic CHF (congestive heart failure) (Chronic) Type 2 diabetes mellitus (Chronic) HgbA1c 06/2016 6.5%. 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) Lymphedema (Chronic) Venous insufficiency (chronic) (peripheral) (Chronic) Hospital Course and Treatment Imaging Results: Clinical Impression(s) from Imaging Studies Chest X-Ray 08/05/17 18:10 IMPRESSION: Right lower lobe pneumonia. Electronically Signed: Bertrand Noel MD at 18:32 EST , Service support , ADDENDUM: 08/05/17 1839 IMPRESSION: Right lower lobe pneumonia. Electronically Signed: Bertrand Noel MD at 18:32 EST , Service support , Operations: None Summary of Care Provided: Patient is a 51-year-old lady with multiple comorbidities admitted with shortness of breath studies obtained in the emergency department came back consistent with right lower lobe pneumonia admitted to monitored bed for subsequent management patient was also found to be anemic on admission with hemoglobin of 7.1 1. Community-acquired pneumonia: Placed on aerosols, antibiotics - Rocephin and Zithromax. Oxygen titrated to keep pulse ox >92%. Blood and sputum cultures sent results Patient did improve with therapy discharged home on cefdinir 2. Symptomatic anemia: Anemia secondary to anemia of chronic disorder. Patient was transfused with 2 units PRBC with consultation placed to general surgery patient underwent EGD on 08/07/2017 with no identifiable source of bleeding found 3. Chronic respiratory failure secondary to obesity hypoventilation syndrome patient is on baseline oxygen 4 L at night 3. Diabetes mellitus type 2 continued with home regimen in addition to Accu-Cheks before meals and at bedtime with sliding scale coverage 5. Mild intermittent asthma currently stable albuterol as needed 6. Obstructive sleep apnea 7. Nonobstructing left renal calculus 8. Degenerative joint disease 9. Fatty liver do suspect nonalcoholic fatty liver disease from patient's morbid obesity as well as diabetes mellitus type 2 10. Chronic bilateral lower extremity lymphedema from venous insufficiency 11. Onychomycosis 12. Morbid obesity with BMI of 74 lifestyle modification including weight loss advised to discuss with patient to follow-up with PCP for referral for consideration for gastric bypass 13. DVT prophylaxis: Lovenox 40 mg SC every 12 Discharge Diet: 1800 Calorie Control Diet Home Medications: Medications to take at Discharge Albuterol Sulfate [Ventolin Hfa] 2 puff INHALATION Q4H PRN PRN 01/08/17 Pantoprazole Sodium [Protonix] 40 mg PO DAILY 02/13/17 Lisinopril [Prinivil] 5 mg PO DAILY 03/06/17 Metoprolol(XL)Succ [Toprol Xl (Beta Vikki)] 25 mg PO DAILY 03/06/17 Acetaminophen [Tylenol Tablet] 650 mg PO Q6H PRN PRN 03/10/17 Dicyclomine HCl [Bentyl] 20 mg PO Q6H PRN PRN 03/10/17 Glimepiride [Amaryl] 2 tab PO DAILY 08/05/17 Hydrochlorothiazide [Hctz] 25 mg PO DAILY 08/05/17 Multivitamin [Daily Multiple Vitamin] 1 each PO 08/05/17 Oxybutynin Chloride [Ditropan Xl] 15 mg PO DAILY 08/05/17 Cefdinir [Omnicef [equiv]] 300 mg PO Q12H #14 cap 08/08/17 Docusate Sodium [Colace] 200 mg PO BID PRN #60 cap 08/08/17 Ferrous Sulfate 325 mg PO DAILY #60 tab 08/08/17 Guaifenesin [Mucinex] 1,200 mg PO BID #20 tab 08/08/17 Following Prescrptions Were Given to Patient: Cefdinir [Omnicef [equiv]] 300 mg PO Q12H #14 cap Docusate Sodium [Colace] 200 mg PO BID PRN #60 cap Ferrous Sulfate 325 mg PO DAILY #60 tab Guaifenesin [Mucinex] 1,200 mg PO BID #20 tab Primary Care Physician: Merrick Mace MD [Primary Care Provider] - Please follow up with your Primary Care Physician in: in 1-2 weeks Disposition: Home Minutes spent on discharge:: 35 Patient Condition:: Stable Meaningful Use Info Meaningful Use Diagnoses (Choose all that apply): None applicable Code Visit Inpatient E&M: 73648 Disch Hosp
--- NOTE | 2017-08-08 09:06 | DS.PCM_ITS ---
Discharge Date and Diagnosis - Problem List Patient Problems: Active and Suspected Problems acute on chronic blood loss anemia (Acute) CAP (community acquired pneumonia) (Acute) Lower GI bleed (Acute) CHRONIC Date of Admission: 08/05/17 Date of Discharge: 08/08/17 - Primary Discharge Diagnosis Active and Suspected Problems acute on chronic blood loss anemia (Acute) CAP (community acquired pneumonia) (Acute) Lower GI bleed (Acute) CHRONIC - Secondary Discharge Diagnosis Chronic Problems Wide-complex tachycardia (Chronic) Chronic diastolic CHF (congestive heart failure) (Chronic) Type 2 diabetes mellitus (Chronic) HgbA1c 06/2016 6.5%. 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) Lymphedema (Chronic) Venous insufficiency (chronic) (peripheral) (Chronic) Hospital Course and Treatment Imaging Results: Clinical Impression(s) from Imaging Studies Chest X-Ray 08/05/17 18:10 IMPRESSION: Right lower lobe pneumonia. Electronically Signed: Bertrand Noel MD at 18:32 EST , Service support , ADDENDUM: 08/05/17 1839 IMPRESSION: Right lower lobe pneumonia. Electronically Signed: Bertrand Noel MD at 18:32 EST , Service support , Operations: None Summary of Care Provided: Patient is a 51-year-old lady with multiple comorbidities admitted with shortness of breath studies obtained in the emergency department came back consistent with right lower lobe pneumonia admitted to monitored bed for subsequent management patient was also found to be anemic on admission with hemoglobin of 7.1 1. Community-acquired pneumonia: Placed on aerosols, antibiotics - Rocephin and Zithromax. Oxygen titrated to keep pulse ox >92%. Blood and sputum cultures sent results Patient did improve with therapy discharged home on cefdinir 2. Symptomatic anemia: Anemia secondary to anemia of chronic disorder. Patient was transfused with 2 units PRBC with consultation placed to general surgery patient underwent EGD on 08/07/2017 with no identifiable source of bleeding found 3. Chronic respiratory failure secondary to obesity hypoventilation syndrome patient is on baseline oxygen 4 L at night 3. Diabetes mellitus type 2 continued with home regimen in addition to Accu- Cheks before meals and at bedtime with sliding scale coverage 5. Mild intermittent asthma currently stable albuterol as needed 6. Obstructive sleep apnea 7. Nonobstructing left renal calculus 8. Degenerative joint disease 9. Fatty liver do suspect nonalcoholic fatty liver disease from patient's morbid obesity as well as diabetes mellitus type 2 10. Chronic bilateral lower extremity lymphedema from venous insufficiency 11. Onychomycosis 12. Morbid obesity with BMI of 74 lifestyle modification including weight loss advised to discuss with patient to follow-up with PCP for referral for consideration for gastric bypass 13. DVT prophylaxis: Lovenox 40 mg SC every 12 Discharge Diet: 1800 Calorie Control Diet Home Medications: Medications to take at Discharge Albuterol Sulfate [Ventolin Hfa] 2 puff INHALATION Q4H PRN PRN 01/08/17 Pantoprazole Sodium [Protonix] 40 mg PO DAILY 02/13/17 Lisinopril [Prinivil] 5 mg PO DAILY 03/06/17 Metoprolol(XL)Succ [Toprol Xl (Beta Vikki)] 25 mg PO DAILY 03/06/17 Acetaminophen [Tylenol Tablet] 650 mg PO Q6H PRN PRN 03/10/17 Dicyclomine HCl [Bentyl] 20 mg PO Q6H PRN PRN 03/10/17 Glimepiride [Amaryl] 2 tab PO DAILY 08/05/17 Hydrochlorothiazide [Hctz] 25 mg PO DAILY 08/05/17 Multivitamin [Daily Multiple Vitamin] 1 each PO 08/05/17 Oxybutynin Chloride [Ditropan Xl] 15 mg PO DAILY 08/05/17 Cefdinir [Omnicef [equiv]] 300 mg PO Q12H #14 cap 08/08/17 Docusate Sodium [Colace] 200 mg PO BID PRN #60 cap 08/08/17 Ferrous Sulfate 325 mg PO DAILY #60 tab 08/08/17 Guaifenesin [Mucinex] 1,200 mg PO BID #20 tab 08/08/17 Following Prescrptions Were Given to Patient: Cefdinir [Omnicef [equiv]] 300 mg PO Q12H #14 cap Docusate Sodium [Colace] 200 mg PO BID PRN #60 cap Ferrous Sulfate 325 mg PO DAILY #60 tab Guaifenesin [Mucinex] 1,200 mg PO BID #20 tab Primary Care Physician: Merrick Mace MD [Primary Care Provider] - Please follow up with your Primary Care Physician in: in 1-2 weeks Disposition: Home Minutes spent on discharge:: 35 Patient Condition:: Stable Meaningful Use Info Meaningful Use Diagnoses (Choose all that apply): None applicable Code Visit Inpatient E&M: 41469 Disch Hosp
--- NOTE | 2017-08-08 09:31 | CASEMGMT ---
PT recommending Home and OT recommending further skilled therapy. This RN CM to bedside to speak with pt and she refuses HHC/OP therapy at this time. Pt states no concerns with going home and no need for therapy at this time. Pt states no further concerns/needs at this time. SStaten RN CM
[2017-08-08 11:21] LABS: Bedside Glucose 111 mg/dL (70-110)
--- NOTE | 2017-08-08 15:10 | CASEMGMT ---
Erica RN informs this RN CM that pt would like squad home. Pt aware that this will be self-pay. Pt states she wanted ambulance home because she is on oxygen at home and states that all of her portable tanks are empty because she rarely leaves the home and she never got them refilled. Pt states that [facility] is oxygen supplier. This RN CM placed call to [facility] and per Sarbjit, they are able to loan pt at tank at this time and he is aware at this time that pt needs tanks refilled at home. Erica CALZADA aware and will update pt/, voice understanding. Pt to be discharged when tank arrives. Deep CALZADA CM
--- NOTE | 2017-08-11 12:59 | OP.PCM_ITS ---
Report of Operation Date of Procedure: 08/07/17 Pre-Operative Diagnosis: anemia Post-Operative Diagnosis: same Surgery/Procedure Performed:: esophagogastroduodenoscopy Description of Surgical Findings:: no gross evidence of blood loss source Type of Anesthesia:: MAC Anesthesiologist: Marquis Murray Specimen's removed: none Estimated Blood Loss (mL): none Fluids Replaced: 200 cc RL Description of Procedure: After informed consent was given, the patient was brought to the endoscopy suite and placed in the upright sitting position. Appropriate cardiac, blood pressure, and pulse oximetry monitoring was placed. Appropriate time out protocol was followed. After stable vital signs were noted, the patient was given intravenous conscious sedation. Of note, the patient is at high risk due to her respiratory insufficiency and her body habitus. The posterior pharynx was sprayed with lidocaine spray times two and a bite block was placed. The upper endoscope was lubricated and inserted into the patient?s mouth and then carefully placed into the patient?s throat. The patient was asked to swallow and the endoscope was then easily advanced into the patient?s esophagus. The endoscope was further advanced down into the patient?s stomach, then past the pylorus, then past the duodenal bulb and then to the second portion of the duodenum. There were no lesions noted in the duodenum. The endoscope was then retracted back into the stomach. A retroflex view of the stomach revealed no evidence of any masses. No ulcers, no strictures, no suspicious lesions were noted. No signs of bleeding were noted. The endoscope was retracted into the esophagus, where any insufflated gas in the stomach was aspirated out. The esophagus was normal. The upper endoscope was removed intact. Patient tolerated procedure. - Complications none noted - Admit VTE Documentation VTE Present on Admission: Yes VTE Mechan Device Prophylaxis: SCD's
== END 2017-08-08 16:17 | disposition home or self-care (01) | DRG 811 ==
LOC: ED 18:38 → PCU 20:16
PROVIDERS: Surgery; Admitting Provider Internal Medicine; Emergency Provider Emergency Medicine; Family Provider Family Medicine; PCP Family Medicine; Visit Provider Internal Medicine
PROC: 0DJ08ZZ Inspection of Upper Intestinal Tract, Via Natural or Artificial Opening Endoscopic (ICD-10-PCS; CPT 43235; principal; 2017-08-07 06:55)
DX: D62 Acute posthemorrhagic anemia (principal); J18.9 Pneumonia, unspecified organism; J96.10 Chronic respiratory failure, unspecified whether with hypoxia or hypercapnia; E11.42 Type 2 diabetes mellitus with diabetic polyneuropathy; I11.0 Hypertensive heart disease with heart failure; E66.2 Morbid (severe) obesity with alveolar hypoventilation; I50.32 Chronic diastolic (congestive) heart failure; B35.1 Tinea unguium; J45.20 Mild intermittent asthma, uncomplicated; Z68.45 Body mass index [BMI] 70 or greater, adult; K92.2 Gastrointestinal hemorrhage, unspecified; E78.5 Hyperlipidemia, unspecified; I87.2 Venous insufficiency (chronic) (peripheral); I89.0 Lymphedema, not elsewhere classified; Z99.81 Dependence on supplemental oxygen; M19.90 Unspecified osteoarthritis, unspecified site; K76.0 Fatty (change of) liver, not elsewhere classified; N20.0 Calculus of kidney; Z79.84 Long term (current) use of oral hypoglycemic drugs; Z87.891 Personal history of nicotine dependence
CPT/HCPCS: 36415; 71046; 80048; 81002; 82962; 83036; 83605; 83735; 85014; 85018; 85025; 85027; 86850; 86900; 86920; 86922; 87040; 87070; 87205; 87449; 87633; 87804; 94640; 94667; 94668; 97162; 97165; 97802; 99285; J7030; J7040; J7050; P9016; A4216; J1940

== ENCOUNTER 2017-10-03 22:33 | Inpatient (IN) | payer MEDICARE, SELFPAY ==
[2017-10-03 22:34] VITALS: BP 149/85; PULSE 87; RESP 23; TEMP 37.2; O2SAT 94; BMI 74.2
[2017-10-03 22:40] VITALS: O2SAT 97
--- NOTE | 2017-10-03 22:57 | EKG12_ITS ---
Test Reason : SOB Blood Pressure : / mmHG Vent. Rate : 076 BPM Atrial Rate : 076 BPM P-R Int : 156 ms QRS Dur : 094 ms QT Int : 478 ms P-R-T Axes : 054 087 054 degrees QTc Int : 537 ms Normal sinus rhythm Prolonged QT Abnormal ECG Confirmed by SOPHIA MENDIOLA ([id number]), electronic news gathering editor VICK BAH ([id number]) on 10/07/2017 2:55:37 PM Referred By: NAYELY Confirmed By:SOPHIA MENDIOLA
--- NOTE | 2017-10-03 23:00 | RAD_ITS ---
STUDY: X-RAY CHEST REASON FOR EXAM: Female, 52 years old. Cough. TECHNIQUE: Single AP portable view of the chest. COMPARISON: 08/05/2017. FINDINGS: Normal lung volumes. Possible mild atelectasis or infiltrates in the perihilar regions and lung bases versus chronic congestion. There is prominent central vascular congestion and probable pulmonary arterial hypertension. No gross effusions. Mild to moderate cardiomegaly. Normal visualized thoracic spine. Normal visualized ribs, clavicles, and shoulders. There is no demonstrated abnormality of the visualized soft tissue structures of the upper abdomen. RAD/Chest 1 View (Portable) IMPRESSION: Central vascular congestion and probable pulmonary arterial hypertension. Cannot exclude bilateral perihilar and basilar atelectasis or infiltrate. Electronically Signed: Alejandro Tao MD at 23:16 EDT , Service support ,
[2017-10-03 23:21] VITALS: PULSE 82; RESP 14
[2017-10-03] MEDS: Ipratropium/Albuterol Sulfate 3 ML AMPUL.NEB INHALATION (23:21)
[2017-10-03] MEDS: Albuterol 2.5 MG/3 ML VIAL.NEB. INHALATION (23:21)
[2017-10-03] MEDS: MethylPREDNISolone 125 MG/2 ML Vial IV (23:41)
[2017-10-03 23:50] LABS: Absolute Lymphocyte Count 1.01 X10^3/ul (0.83-4.51); Absolute Neutrophil Count 4.8 X10^3/uL (2.0-7.7); Basophil# 0.01 X10^3/uL; Basophil% 0.1 % (0-1); Eosinophil# 0.58 X10^3/uL; Eosinophils% 8.4 % (0-5); Hematocrit 29.5 % (37-47); Hemoglobin 8.1 g/dl (12.0-15.0); Lymphocyte # 1.01 X10^3/ul (4.0); Lymphocyte % 14.7 % (19-41); Mean Corp Hgb Conc 27.5 g/gl (32-36); Mean Corpuscular Hgb 25.6 pg (27.0-32.0); Mean Corpuscular Volume 93.4 fL (81-99); Mean Platelet Vol. 8.9 fl (6.2-12.0); Monocyte# 0.41 X10^3/uL; Neutrophil # 4.83 X10^3/uL (2.7-7.7); Neutrophil % 70.4 % (47-70); Platelet Count 126 K/mm3 (150-450); RBC Distribution Width CV 16.6 % (11.6-14.6); RBC Distribution Width SD 57.3 fl (35.1-43.9); Red Blood Count 3.16 M/mm3 (4.2-5.4); White Blood Count 6.9 K/mm3 (4.4-11.0)
[2017-10-03 23:51] LABS: POSITIVE COUNT NO; POSITIVE DIFFERENTIAL NO; POSITIVE MORPHOLOGY NO
[2017-10-04] VITALS (20 sets, daily range): BP systolic 131–173; BP diastolic 67–105; PULSE 76–89; RESP 16–26; TEMP 36.6–37.5; O2SAT 92–96; BMI 76.7
[2017-10-04 00:08] LABS: Anion Gap 1 (5-15); BUN 8 mg/dL (7-18); BUN/Creat Ratio 10.5 RATIO (10-20); Calcium,Total 8.1 mg/dL (8.5-10.1); Chloride 106 mmol/L (98-107); Creatinine, Serum 0.76 mg/dL (0.55-1.02); EST Glomerular Filtration Rate 85 mL/min (>60); Est Glom Filt Rate - Afr Amer 103 mL/min (>60); Glucose 120 mg/dL (74-106); Potassium 3.7 mmol/L (3.5-5.1); Sodium Level 144 mmol/L (136-145)
[2017-10-04] MEDS: Furosemide 40 MG/4 ML Vial IV ×4 (00:41→22:33)
--- NOTE | 2017-10-04 01:02 | ED.DCSUM_ITS ---
- ER Visit Summary Date of Service: 10/04/17 Chief Complaint: [Shortness of breath] History of Present Illness: The patient is a 52 F [who presents the emergency department with shortness of breath ?1 week. It has been getting worse. She is coughing up brown yellow sputum. She denies any fevers but states she is very weak. She wears 4 L of oxygen at home and has been wearing it all the time although she usually only wears it at night. She has CHF asthma. This feels exactly like when she had pneumonia back in July. She has had some mild increase in her swelling.] Physical Examination: [] 94% on 4 L WN WD obese PERRL EOMI MMM NECK supple and nontender, no masses RRR no murmur rub or gallop, 3+ lower extremity edema that symmetric bilaterally symmetric radial pulses No distress because of tachypnea and labored respirations, she has diffuse wheezing and rhonchi rhonchi ABDOMEN is soft and nontender, normal bowel sounds, no distension, no rebound or guarding SKIN is warm and dry no rashes Alert and Oriented x3, CN II-XII in tact, no motor or sensory deficits, diffusely weak No lymphadenopathy Test Results: [] Emergency Department Course and Treatment: [EKG and troponin were unremarkable. Patient is anemic at 8.1. Chest x-ray was consistent with vascular congestion and possible underlying infiltrate. Patient was given breathing treatments and Solu-Medrol on arrival. Because of her gain in weight and dyspnea with CHF on chest x-ray Lasix was given. I also treated her for possible underlying pneumonia given that she has had productive cough and symptoms consistent with pneumonia she has had in the past. She will be admitted to the hospital.] Treatment Plan: [] Disposition: [Admit] Impression: [. Dyspnea 2. CHF 3. Pneumonia 4. Bronchospasm] This note was generated with [employer] dictation software. It may contain incorrect words, spelling, and punctuation that were not noted in review of the chart prior to signing ED Disposition - Plan for ED Patient: Chief Complaint: Shortness of Breath
[2017-10-04 01:12] LABS: BNP,B-Type NATRIURETIC PEPTIDE 221.3 pg/mL (0-100)
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
--- NOTE | 2017-10-04 01:38 | NURSING ---
THIS NURSE DID NOT KNOW THAT PATIENT WAS INCONTINENT OF URINE WHEN I TOOK HER TO THE FLOOR. I THOUGHT WHEN SHE SAID THAT THE LASIX MADE HER VOID I THOUGHT SHE WAS PUT ON A BED MARTINES BECAUSE I HEARD [employer]PERATIONS MANAGER CALLED TO HER ROOM NOT LONG PRIOR.
[2017-10-04 01:42] LABS: Magnesium 1.9 mg/dL (1.6-2.6)
[2017-10-04 02:11] LABS: Color, Urine Straw (Yellow); Glucose, Dipstick Normal (Normal); Ketone-Dipstick Negative (Negative); Leukocyte Esterase-Dipstick Negative /ul (Negative); Nitrite-Dipstick Negative (Negative); Occult Blood-Urine Negative /ul (Negative); Protein-Dipstick Negative (Negative); Urine Bilirubin Dipstick Negative (Negative); Urine Clarity Clear (Clear); Urine Urobilinogen Normal (Normal); Urine pH 6.5 (5.0 - 8.0)
[2017-10-04] MEDS: Isosorbide DN 10 MG Tablet PO ×4 (02:48→22:32)
[2017-10-04] MEDS: Enoxaparin 40 MG/0.4 ML Syringe SC (02:49)
--- NOTE | 2017-10-04 02:49 | NURSING ---
Pts. primary rn aware of urine result of being positive for strep pneumo at this time.
[2017-10-04] MEDS: 0.9% NaCl Peripheral Flush Adult/Peds IV ×4 (02:51→22:40)
[2017-10-04 03:05] LABS: Bedside Glucose 183 mg/dL (70-110)
[2017-10-04 04:05] LABS: Absolute Neutrophil Count 6.7 X10^3/uL (2.0-7.7); Basophil# 0.02 X10^3/uL; Basophil% 0.3 % (0-1); Differential Indicated SCAN CRITERIA MET; Eosinophil# 0.14 X10^3/uL; Eosinophils% 1.9 % (0-5); Hematocrit 31.5 % (37-47); Hemoglobin 8.7 g/dl (12.0-15.0); Lymphocyte % 5.4 % (19-41); Mean Corp Hgb Conc 27.6 g/gl (32-36); Mean Corpuscular Hgb 25.9 pg (27.0-32.0); Mean Corpuscular Volume 93.8 fL (81-99); Mean Platelet Vol. 9.2 fl (6.2-12.0); Monocyte% 1.3 % (0-10); Neutrophil # 6.71 X10^3/uL (2.7-7.7); Neutrophil % 90.3 % (47-70); POSITIVE COUNT NO; POSITIVE DIFFERENTIAL YES; POSITIVE MORPHOLOGY NO; Platelet Count 143 K/mm3 (150-450); RBC Distribution Width CV 16.1 % (11.6-14.6); RBC Distribution Width SD 53.1 fl (35.1-43.9); Red Blood Count 3.36 M/mm3 (4.2-5.4); White Blood Count 7.4 K/mm3 (4.4-11.0)
[2017-10-04 04:42] LABS: Anion Gap 6 (5-15); BUN 9 mg/dL (7-18); BUN/Creat Ratio 12.1 RATIO (10-20); Calcium,Total 8.2 mg/dL (8.5-10.1); Chloride 102 mmol/L (98-107); Cholesterol 137 mg/dL (200); Creatinine, Serum 0.74 mg/dL (0.55-1.02); EST Glomerular Filtration Rate 87 mL/min (>60); Est Glom Filt Rate - Afr Amer 105 mL/min (>60); Estimated Creatinine Clearance 63.88 ml/min; Glucose 169 mg/dL (74-106); High Density Lipoprotein 33 mg/dL; Potassium 3.6 mmol/L (3.5-5.1); Sodium Level 144 mmol/L (136-145); Thyroid Stim Hormone (TSH) 1.48 uIU/mL (0.358-3.74); Triglycerides 121 mg/dL; Very Low Density Lipoprotein 24 mg/dL (5-40)
[2017-10-04 05:07] LABS: Differential Comment SCANNED
[2017-10-04] MEDS: Oxybutynin 5 MG Tablet PO ×3 (05:48→22:32)
--- NOTE | 2017-10-04 05:55 | RAD_ITS ---
STUDY: X-RAY CHEST REASON FOR EXAM: Female, 52 years old. Shortness of breath. CHF exacerbation. TECHNIQUE: Single frontal view of the chest. COMPARISON: October 03, 2017. FINDINGS: There are monitoring devices. Interstitial and groundglass opacities of the lungs with worsening. There is no demonstrated pleural abnormality. There is mild cardiac enlargement. Normal mediastinum and negra. There is prominence of the pulmonary hilar arteries and peripheral pulmonary arteries, consistent with congestive heart failure (CHF). Normal visualized aortic arch and descending thoracic aorta. Normal visualized thoracic spine. Normal visualized ribs, clavicles, and shoulders. There is no demonstrated abnormality of the visualized soft tissue structures of the upper abdomen. RAD/Chest 1 View (Portable) IMPRESSION: CHF with edema and vascular prominence. Electronically Signed: Guy Reynolds MD at 10:33 EDT , Service support ,
[2017-10-04 07:01] LABS: Bedside Glucose 186 mg/dL (70-110)
[2017-10-04 07:19] LABS: Hemoglobin A1c 5.2 % (4.2-6.3)
[2017-10-04] MEDS: Acetaminophen 325 MG Tablet 650 MG PO ×2 (08:33→22:31)
[2017-10-04] MEDS: Ferrous Sulfate 325 MG Tablet PO (09:08)
--- NOTE | 2017-10-04 09:10 | CASEMGMT ---
See RN CM Assessment Link. DC PLAN: undetermined -PT/OT ordered, evals pending. -pt has support @ home, oxygen, walker. -CM to assist with dc planning if needs arise. August BETTSN RN ACM
[2017-10-04] MEDS: Glimepiride 2 MG Tablet PO (09:11)
[2017-10-04] MEDS: Metoprolol(XL)Succ 25 MG Tablet PO (09:14)
[2017-10-04] MEDS: Lisinopril 5 MG Tablet PO (09:22)
[2017-10-04] MEDS: guaiFENesin 1,200 MG Tablet 1200 MG PO ×2 (09:23→22:28)
[2017-10-04] MEDS: Doxycycline 100 MG CAPSULE PO (09:23)
[2017-10-04] MEDS: Pantoprazole Sodium 40 MG Tablet PO (09:23)
--- NOTE | 2017-10-04 10:05 | ECHOCS_ITS ---
Reason For Study: Dyspnea/SOB Procedure This was a 2D Doppler, Color Flow transthoracic echocardiogram. The study was technically difficult. Exam performed portable in patient room. Left Ventricle Normal LV size. Mild concentric left ventricular hypertrophy. Left ventricular systolic function is normal. The estimated ejection fraction is 60 %. No regional wall motion abnormalities noted. Right Ventricle Normal RV size. Normal systolic function. Atria Normal left atrium. Normal right atrium. Mitral Valve Normal mitral valve. Tricuspid Valve Normal tricuspid valve. Mild to moderate (1-2+) tricuspid valve insufficiency. Pulmonary artery systolic pressure is 42 mmHg. Aortic Valve The aortic valve is not well visualized. Pulmonic Valve Normal pulmonic valve. Great Vessels Normal aortic root. The pulmonary artery is normal size. Normal inferior vena cava. Pericardium/Pleural No pericardial effusion. Medication Performed a rapid injection of agitated mix of 9 cc saline and 1cc air to assess for atrial septal defect. Definity0.2ml given slow IV push to enhance endocardial definition. MMode/2D Measurements & Calculations LVIDd: 5.0 cm IVSd: 1.3 cm LVOT diam: 2.3 cm LVIDs: 3.3 cm LVPWd: 1.2 cm LVOT area: 4.3 cm2 RVDd: 4.8 cm FS: 33.6 % Ao root diam: 3.2 cm LAV(MOD-bp): 40.0 ml LA dimension: 4.3 cm LAV(MOD-bp) Indexed: 16.2 ml/m2 LA A4 area: 14.7 cm2 LAV(MOD-sp2): 41.2 ml LAV(MOD-sp4): 37.9 ml RA A4 area: 19.7 cm2 Doppler Measurements & Calculations MV E max stevo: 99.3 cm/sec Lat Peak E' Stevo: 10.5 cm/sec Med Peak E' Stevo: 9.6 cm/sec MV A max stevo: 83.4 cm/sec E/E' lat: 9.4 E/E' med: 10.3 MV E/A: 1.2 Ao V2 max: 235.7 cm/sec LV V1 max: 112.5 cm/sec SV(LVOT): 102.0 ml Ao max P.2 mmHg LV V1 max P.1 mmHg Ao V2 mean: 167.8 cm/sec LV V1 mean P.2 mmHg Ao mean P.3 mmHg LV V1 mean: 86.6 cm/sec Ao V2 VTI: 51.6 cm LV V1 VTI: 23.8 cm VIDAL(I,D): 2.0 cm2 VIDAL(V,D): 2.0 cm2 PA V2 max: 134.4 cm/sec TR max stevo: 310.7 cm/sec TR max P.6 mmHg Interpretation Summary Normal LV size. Mild concentric left ventricular hypertrophy. Left ventricular systolic function is normal. The estimated ejection fraction is 60 %. Mild to moderate (1-2+) tricuspid valve insufficiency. Contrast injection was performed. Ordering Physician: Merrick Wall Referring Physician: Merrick Mace Performed By: Shaila Haskins, DINA, RVT
--- NOTE | 2017-10-04 10:09 | CCHN_ITS ---
Hospitalist Note Patient was seen and examined today, I looked at her chest x-ray and I feel that the patient is more likely in congestive heart failure than has a pneumonia. I have elected to stop her antibiotics and decrease her Solu- Medrol. I have increased her Lasix and ordered an echocardiogram. I will repeat her chest x-ray tomorrow
[2017-10-04 10:48] LABS: M R Staph aureus DNA By PCR Negative (Negative); Probe Check PASS; Specimen Processing Control PASS
[2017-10-04] MEDS: Ipratropium/Albuterol Sulfate 3 ML AMPUL.NEB INHALATION ×2 (11:00→15:03)
[2017-10-04 11:25] LABS: Bedside Glucose 201 mg/dL (70-110)
--- NOTE | 2017-10-04 11:28 | NURSING ---
patient was refusing therapy- went into talk to patient explained that therapy is only here in am on weekends and that This nurse has to remove randle for risk of infection and does not have a reason to keep it in. patient refused nurse to remove. Explained that patient has to be evaluated and get oob to use the bathroom risk of bedsores/infection. ect. Patient agreed with therapy if she can keep randle in. Patient is sob just moving in bed minimal activity did discuss with
[2017-10-04 16:56] LABS: Bedside Glucose 164 mg/dL (70-110)
[2017-10-04 22:26] LABS: Bedside Glucose 134 mg/dL (70-110)
[2017-10-05] VITALS (14 sets, daily range): BP systolic 129–153; BP diastolic 62–84; PULSE 74–83; RESP 16–21; TEMP 36.8–37.7; O2SAT 4–98
--- NOTE | 2017-10-05 05:16 | RAD_ITS ---
STUDY: X-RAY CHEST REASON FOR EXAM: Female, 52 years old. Shortness of breath TECHNIQUE: Single AP portable view of the chest. COMPARISON: October 04, 2017 . FINDINGS: There are monitoring and support devices There is mild improvement of interstitial and groundglass opacities of the lungs. There is no demonstrated pleural abnormality. There is mild cardiac enlargement. Normal mediastinum and negra. Normal visualized pulmonary arteries. Normal visualized aortic arch and descending thoracic aorta. Normal visualized thoracic spine. Normal visualized ribs, clavicles, and shoulders. There is no demonstrated abnormality of the visualized soft tissue structures of the upper abdomen. RAD/Chest 1 View (Portable) IMPRESSION: Improvement of edema. Electronically Signed: Guy Reynolds MD at 8:15 EDT , Service support ,
[2017-10-05 06:01] LABS: Anion Gap 5 (5-15); BUN 17 mg/dL (7-18); Calcium,Total 8.1 mg/dL (8.5-10.1); Chloride 97 mmol/L (98-107); Creatinine, Serum 0.89 mg/dL (0.55-1.02); EST Glomerular Filtration Rate 70 mL/min (>60); Est Glom Filt Rate - Afr Amer 85 mL/min (>60); Estimated Creatinine Clearance 53.11 ml/min; Glucose 143 mg/dL (74-106); Potassium 3.9 mmol/L (3.5-5.1); Sodium Level 143 mmol/L (136-145)
[2017-10-05] MEDS: Furosemide 40 MG/4 ML Vial IV ×3 (06:58→21:19)
[2017-10-05] MEDS: Isosorbide DN 10 MG Tablet PO ×3 (06:58→21:19)
[2017-10-05] MEDS: Oxybutynin 5 MG Tablet PO ×3 (06:58→21:19)
[2017-10-05 07:15] LABS: Bedside Glucose 140 mg/dL (70-110)
[2017-10-05] MEDS: guaiFENesin 1,200 MG Tablet 1200 MG PO ×2 (09:14→21:19)
[2017-10-05] MEDS: Glimepiride 2 MG Tablet PO (09:14)
[2017-10-05] MEDS: Ferrous Sulfate 325 MG Tablet PO (09:14)
[2017-10-05] MEDS: Pantoprazole Sodium 40 MG Tablet PO (09:15)
[2017-10-05] MEDS: Metoprolol(XL)Succ 25 MG Tablet PO (09:15)
[2017-10-05] MEDS: Lisinopril 5 MG Tablet PO (09:16)
[2017-10-05] MEDS: Ipratropium/Albuterol Sulfate 3 ML AMPUL.NEB INHALATION (10:30)
[2017-10-05 11:11] LABS: Bedside Glucose 187 mg/dL (70-110)
--- NOTE | 2017-10-05 12:45 | PCM.PROGNOTE ---
Patient Problems: Active and Suspected Problems Acute and chronic respiratory failure with hypoxia (Acute) Acute on chronic diastolic heart failure (Acute) Acute bronchitis with asthma with acute exacerbation (Acute) Subjective: Patient was seen and examined today, she has not been up out of bed, I encouraged her to get out of bed and sit in the chair. She has been diuresing well with the IV Lasix, chest x-ray shows some improvement of CHF. Patient will get an echocardiogram performed tomorrow. - Physical Exam General: Alert, Oriented x3, Cooperative, No apparent distress, Well developed HEENT: Atraumatic, PERRLA, EOMI, Normocephalic Oral: Moist Mucosa Neck: Supple, No JVD, No Nuchal Rigidity, Trachea Midline, Thyroid Normal Size and Texture Lungs: No rhonchi, No rales, Wheezes - Bilateral mild expiratory wheezes noted Cardiovascular: Regular rate, Regular Rhythm, Normal S1, Normal S2, No murmurs, No Ectopic Activity, PMI Normal, No rub noted, No Gallop Abdomen: Bowel Sounds Present, Soft, Non Tender, Non-Distended, Obese, No hernias noted Extremities: Capillary Refill Less than 3 Seconds, Edema - Lower extremity lymphedematous changes are noted Skin: No rashes, No breakdown Neurological: Cranial nerves II-XII grossly intact, Neuro grossly intact, Sensory exam intact to light touch and pain Psych/Mental Status: Normal Affect, Appropriate, Alert and oriented to time, place, person, mood and affect Vital Signs Temp Pulse Resp BP Pulse Ox 98.3 F 75 16 149/84 H 4 10/05/17 09:17 10/05/17 10:55 10/05/17 09:17 10/05/17 09:17 10/05/17 11:37 Oxygen Flow Rate (L/min) 4 Oxygen Delivery Method Nasal Cannula Weight: 175.2 kg Body Mass Index (BMI) 76.7 Intake and Output for Last 24 Hours 10/03/17 10/04/17 10/05/17 23:59 23:59 23:59 Intake Total 1580 / 1580 410 / 410 Output Total 6865 / 6865 3350 / 3350 Balance -5285 / -5285 -2940 / -2940 Microbiology Past 72 Hours 10/04/17 02:03 Streptococcus pneumoniae Antigen (M - Final Urine, Clean Catch Streptococcus pneumonia Ag 10/04/17 02:03 Legionella Antigen - Final Urine, Clean Catch Laboratory Tests Past 24 Hrs 10/04/17 10/05/17 13:45 05:11 Sodium 143 Potassium 3.9 Chloride 97 L Carbon Dioxide 41.0 H Anion Gap 5 BUN 17 Creatinine 0.89 Estim Creat Clear Calc 53.11 Est GFR (MDRD) Af Amer 85 Est GFR (MDRD) Non-Af 70 BUN/Creatinine Ratio 19.0 Glucose 143 H Calcium 8.1 L Troponin I < 0.02 POC Glucose 10/05/17 10/05/17 10/04/17 11:03 07:09 22:21 POC Glucose 187 H 140 H 134 H 10/04/17 16:41 POC Glucose 164 H Medical Necessity - Tobacco Use Smoking Status: Former smoker Assessment/Plan Active and Suspected Problems Acute and chronic respiratory failure with hypoxia (Acute) Acute on chronic diastolic heart failure (Acute) Acute bronchitis with asthma with acute exacerbation (Acute) #1 acute on chronic diastolic congestive heart failure-patient's heart failure is presumed to be diastolic in nature, she will have an echocardiogram performed tomorrow, continue IV Lasix, repeat labs in the morning, repeat chest x-ray in the morning #2 acute on chronic hypoxic respiratory failure secondary to #1, I will continue to wean her steroids #3 Type 2 diabetes #4 obstructive sleep apnea #5 morbid obesity #6 debility-PT and OT will continue to see the patient #7 pulmonary hypertension #8 asthma #9 chronic lower extremity lymphedema Again, I do not believe the patient had a pneumonia at the time of admission Code Visit Inpatient E&M: 50332 Subs Hosp L2
[2017-10-05] MEDS: 0.9% NaCl Peripheral Flush Adult/Peds IV ×2 (13:42→21:19)
[2017-10-05 16:21] LABS: Bedside Glucose 161 mg/dL (70-110)
[2017-10-05 21:40] LABS: Bedside Glucose 150 mg/dL (70-110)
--- NOTE | 2017-10-05 23:22 | NURSING ---
PATIENT REFUSING TO TURN, STATES SHE TURNS HERSELF IN THE BED.
[2017-10-06] VITALS (15 sets, daily range): BP systolic 138–154; BP diastolic 71–77; PULSE 71–83; RESP 16–18; TEMP 36.7–37.4; O2SAT 92–96
[2017-10-06] MEDS: Oxybutynin 5 MG Tablet PO ×3 (05:52→22:00)
[2017-10-06] MEDS: 0.9% NaCl Peripheral Flush Adult/Peds IV ×3 (05:52→22:00)
[2017-10-06] MEDS: Isosorbide DN 10 MG Tablet PO ×3 (05:52→22:00)
[2017-10-06] MEDS: Furosemide 40 MG/4 ML Vial IV ×3 (05:52→22:00)
--- NOTE | 2017-10-06 05:55 | RAD_ITS ---
STUDY: X-RAY CHEST REASON FOR EXAM: Female, 52 years old. Shortness of breath. TECHNIQUE: AP portable chest. COMPARISON: October 05, 2017. October 04, 2017. FINDINGS: No focal infiltrates or effusions. Continued decrease in vascular congestion in the lung bases. Stable mild cardiomegaly. Normal mediastinum and negra. Normal visualized pulmonary arteries. Normal visualized aortic arch and descending thoracic aorta. Normal visualized thoracic spine. Normal visualized ribs, clavicles, and shoulders. There is no demonstrated abnormality of the visualized soft tissue structures of the upper abdomen. RAD/Chest 1 View (Portable) IMPRESSION: Stable mild cardiomegaly. Improving vascular congestion which is mild. Electronically Signed: Carson Garber MD at 5:41 EDT , Service support ,
[2017-10-06 06:43] LABS: BUN 23 mg/dL (7-18); BUN/Creat Ratio 24.9 RATIO (10-20); Calcium,Total 8.1 mg/dL (8.5-10.1); Carbon Dioxide > 45.0 mmol/L (21.0-32.0); Chloride 90 mmol/L (98-107); Creatinine, Serum 0.92 mg/dL (0.55-1.02); EST Glomerular Filtration Rate 68 mL/min (>60); Est Glom Filt Rate - Afr Amer 82 mL/min (>60); Estimated Creatinine Clearance 51.38 ml/min; Glucose 119 mg/dL (74-106); Potassium 3.5 mmol/L (3.5-5.1); Sodium Level 141 mmol/L (136-145)
[2017-10-06 06:50] LABS: Bedside Glucose 114 mg/dL (70-110)
--- NOTE | 2017-10-06 06:54 | PCM.HOSP.N ---
Hospitalist Note Nurse called me for elevated CO2 level more than 45. Patient is on high-dose of Lasix, 40 mg every 8 hourly. Patient has been well diuresed about 5 L for last 2 days. Will decrease Lasix 40 mg IV 1 dose in the evening today and then 40 mg twice daily from tomorrow so that her bicarb gets better and can titrate later as per intake and output. Patient is not short of breath. Microbiology Past 72 Hours 10/04/17 02:03 Urine, Clean Catch Streptococcus pneumoniae Antigen (M - Final Streptococcus pneumonia Ag 10/04/17 02:03 Urine, Clean Catch Legionella Antigen - Final 10/03/17 23:07 Mucosa - Nose Influenza Types A,B Direct FA (JENNIFER) - Final Laboratory Results 10/05/17 07:09: POC Glucose 140 H 10/05/17 11:03: POC Glucose 187 H 10/05/17 16:06: POC Glucose 161 H 10/05/17 21:15: POC Glucose 150 H 10/06/17 05:38: Sodium 141, Potassium 3.5, Chloride 90 L, Carbon Dioxide > 45.0 H*, Anion Gap TNP, BUN 23 H, Creatinine 0.92, Estim Creat Clear Calc 51.38, Est GFR (MDRD) Af Amer 82, Est GFR (MDRD) Non-Af 68, BUN/Creatinine Ratio 24.9 H, Glucose 119 H, Calcium 8.1 L 10/06/17 06:45: POC Glucose 114 H
[2017-10-06] MEDS: Ipratropium/Albuterol Sulfate 3 ML AMPUL.NEB INHALATION ×3 (07:13→15:28)
[2017-10-06] MEDS: Ferrous Sulfate 325 MG Tablet PO (09:28)
[2017-10-06] MEDS: Pantoprazole Sodium 40 MG Tablet PO (09:28)
[2017-10-06] MEDS: Glimepiride 2 MG Tablet PO (09:28)
[2017-10-06] MEDS: guaiFENesin 1,200 MG Tablet 1200 MG PO ×2 (09:28→22:00)
[2017-10-06] MEDS: Metoprolol(XL)Succ 25 MG Tablet PO (09:29)
[2017-10-06] MEDS: Lisinopril 5 MG Tablet PO (09:29)
[2017-10-06 11:31] LABS: Bedside Glucose 131 mg/dL (70-110)
--- NOTE | 2017-10-06 12:02 | CASEMGMT ---
Social Work Reviewed therapy notes and met with pt and sister in room to discuss d/c plan. Pt just finishing up PT/OT. Discussed with pt amount of assistance needed with therapy to transfer out of bed and into chair and ability to ambulate. Presented option of short term SNF stay prior to return home with her . Pt previously in [facility] and familiar with SNF. Pt stating she is willing to go to SNF and would like to go to [facility] at d/c. KHUSHBOO placed call to Bianca in TCU and made referral. KHUSHBOO will follow for d/c planning. Plan: TCU, pending acceptance [facility]
--- NOTE | 2017-10-06 13:55 | NURSING ---
was asked to see patient for chronic lymphedema and ulcers to bilateral lower legs. removed MARBIN wraps. there are no open areas noted. legs are very dry and flaky. washed legs and feet with soap and water and patted dry. applied aloe vesta and reapplied the MARBIN wraps from the base of the toes to just below the knees. pt tolerated well.
--- NOTE | 2017-10-06 16:55 | PCM.PN.HOSP ---
Patient Problems: Active and Suspected Problems Acute and chronic respiratory failure with hypoxia (Acute) Acute on chronic diastolic heart failure (Acute) Acute bronchitis with asthma with acute exacerbation (Acute) Subjective: CC: Shortness of breath Presented with shortness of breath and found to have pulmonary is improving with IV Lasix. Objective: CC: Vitals/I&O's: Vital Signs Temp Pulse Resp BP Pulse Ox 98.1 F 74 16 148/75 H 96 10/06/17 09:15 10/06/17 15:28 10/06/17 15:28 10/06/17 09:29 10/06/17 09:15 Oxygen Flow Rate (L/min) 4 Oxygen Delivery Method Nasal Cannula Weight: 174.2 kg Body Mass Index (BMI) 76.7 Intake and Output for Last 24 Hours 10/04/17 10/05/17 10/06/17 23:59 23:59 23:59 Intake Total 1580 / 1580 770 / 770 1560 / 1560 Output Total 6865 / 6865 5450 / 5450 4500 / 4500 Balance -5285 / -5285 -4680 / -4680 -2940 / -2940 Microbiology Past 72 Hours 10/04/17 02:03 Urine, Clean Catch Streptococcus pneumoniae Antigen (M - Final Streptococcus pneumonia Ag 10/04/17 02:03 Urine, Clean Catch Legionella Antigen - Final Laboratory Results 10/05/17 21:15: POC Glucose 150 H 10/06/17 05:38: Sodium 141, Potassium 3.5, Chloride 90 L, Carbon Dioxide > 45.0 H*, Anion Gap TNP, BUN 23 H, Creatinine 0.92, Estim Creat Clear Calc 51.38, Est GFR (MDRD) Af Amer 82, Est GFR (MDRD) Non-Af 68, BUN/Creatinine Ratio 24.9 H, Glucose 119 H, Calcium 8.1 L 10/06/17 06:45: POC Glucose 114 H 10/06/17 11:25: POC Glucose 131 H Current Medications Acetaminophen (Tylenol) 650 mg PO Q6H PRN PRN PRN Reason: Mild Pain (scale 0-3)/T>100.7 Last Admin: 10/04/17 22:31 Dose: 650 mg Al Hydroxide/Mg Hydroxide (Mylanta Ii) 30 ml PO Q6H PRN PRN PRN Reason: Gastric Burning Albuterol Sulfate (Ventolin Aerosols) 2.5 mg INHALATION Q2H PRN PRN PRN Reason: SHORTNESS OF BREATH Albuterol/Ipratropium (Duoneb) 3 ml INHALATION Q4HWA.RT [facility] Last Admin: 10/06/17 15:28 Dose: 3 ml Bisacodyl (Dulcolax) 10 mg RECTAL DAILY PRN PRN PRN Reason: Constipation Dextrose (D50w Syringe) 0 gm IV X1 PRN; Protocol PRN Reason: Hypoglycemia Dicyclomine HCl (Bentyl) 20 mg PO Q6H PRN PRN PRN Reason: abd pain Docusate Sodium (Colace) 200 mg PO BID PRN PRN PRN Reason: Constipation [facility]ous S[facility] ([facility]) [facility] Last Admin: 10/06/17 09:28 Dose: 325 mg Furosemide (Lasix) 40 mg IV Q12 [facility] Glimepiride (Amaryl) [facility] Last Admin: 10/06/17 09:28 Dose: 2 mg Glucagon () 1 mg IM .X1 PRN PRN Reason: Hypoglycemia Guaifenesin (Mucinex) 1,200 mg PO BID [facility] Last Admin: 10/06/17 09:28 Dose: 1,200 mg Hydralazine HCl (Apresoline Iv) 10 mg IV Q4H PRN PRN PRN Reason: SBP >180 mmhg Insulin Aspart (Novolog Flexpen (Bkc)) 0 units SC ACHS [facility] PRN Reason: Protocol Last Admin: 10/06/17 11:28 Dose: Not Given Isosorbide Dinitrate (Isordil) 10 mg PO TID [facility] Last Admin: 10/06/17 14:15 Dose: 10 mg Lisinopril (Zestril) 5 mg PO DAILY [facility] Last Admin: 10/06/17 09:29 Dose: 5 mg Methylprednisolone (Solu-Medrol) 20 mg IV BID [facility] Last Admin: 10/06/17 09:29 Dose: 20 mg Metoprolol Succinate (Toprol Xl (Beta Vikki)) 25 mg PO DAILY [facility] Last Admin: 10/06/17 09:29 Dose: 25 mg Morphine Sulfate () 1 - 2 mg IV Q4H PRN PRN PRN Reason: SEVERE PAIN (6-10/10) Nitroglycerin (Nitrostat) 0.4 mg SUBLINGUAL Q5M PRN PRN Reason: CARDIAC/CHEST PAIN Nitroglycerin (Nitrobid) 1 inch TRANSDERM. Q6H PRN PRN PRN Reason: chest pain/SOB Ondansetron HCl (Zofran) 4 mg IV Q8H PRN PRN PRN Reason: Nausea Oxybutynin Chloride (Ditropan) 5 mg PO TID [facility] Last Admin: 10/06/17 05:52 Dose: 5 mg Oxycodone HCl (Oxyir) 5 mg PO Q4H PRN PRN PRN Reason: Moderate Pain (pain scale 4-5) Pantoprazole Sodium (Protonix) 40 mg PO DAILY [facility] Last Admin: 10/06/17 09:28 Dose: 40 mg Polyethylene Glycol (Miralax) 17 gm PO DAILY [facility] Last Admin: 10/06/17 09:28 Dose: Not Given Sodium Chloride () 5 - 30 ml IV UD PRN PRN Reason: SALINE FLUSH Last Admin: 10/06/17 09:34 Dose: 10 ml Zolpidem Tartrate (Ambien (Generic)) 5 mg PO QHS PRN PRN PRN Reason: INSOMNIA Medical Necessity - Tobacco Use Smoking Status: Former smoker Assessment/Plan Active and Suspected Problems Acute and chronic respiratory failure with hypoxia (Acute) Acute on chronic diastolic heart failure (Acute) Acute bronchitis with asthma with acute exacerbation (Acute) 1 acute on chronic diastolic congestive heart failure; to do on IV Lasix 40 mg daily 2 acute on chronic hypoxic respiratory failure secondary ; weaned off on supplemental oxygen. 3 Type 2 diabetes; she is on glimepiride and regular insulin sliding scale. 4 obstructive sleep apnea; at bedtime CPAP 5 morbid obesity; she is recommended. 6 Debility-PT and OT , ECF placement. 7 chronic lower extremity lymphedema; excess ordered. Code Visit Inpatient E&M: 83971 Subs Hosp L2
--- NOTE | 2017-10-06 16:58 | PN_ITS ---
Patient Problems: Active and Suspected Problems Acute and chronic respiratory failure with hypoxia (Acute) Acute on chronic diastolic heart failure (Acute) Acute bronchitis with asthma with acute exacerbation (Acute) Subjective: CC: Shortness of breath Presented with shortness of breath and found to have pulmonary is improving with IV Lasix. Objective: CC: Vitals/I&O's: Vital Signs Temp Pulse Resp BP Pulse Ox 98.1 F 74 16 148/75 H 96 10/06/17 09:15 10/06/17 15:28 10/06/17 15:28 10/06/17 09:29 10/06/17 09:15 Oxygen Flow Rate (L/min) 4 Oxygen Delivery Method Nasal Cannula Weight: 174.2 kg Body Mass Index (BMI) 76.7 Intake and Output for Last 24 Hours 10/04/17 10/05/17 10/06/17 23:59 23:59 23:59 Intake Total 1580 / 1580 770 / 770 1560 / 1560 Output Total 6865 / 6865 5450 / 5450 4500 / 4500 Balance -5285 / -5285 -4680 / -4680 -2940 / -2940 Microbiology Past 72 Hours 10/04/17 02:03 Urine, Clean Catch Streptococcus pneumoniae Antigen (M - Final Streptococcus pneumonia Ag 10/04/17 02:03 Urine, Clean Catch Legionella Antigen - Final Laboratory Results 10/05/17 21:15: POC Glucose 150 H 10/06/17 05:38: Sodium 141, Potassium 3.5, Chloride 90 L, Carbon Dioxide > 45.0 H*, Anion Gap TNP, BUN 23 H, Creatinine 0.92, Estim Creat Clear Calc 51.38, Est GFR (MDRD) Af Amer 82, Est GFR (MDRD) Non-Af 68, BUN/Creatinine Ratio 24.9 H, Glucose 119 H, Calcium 8.1 L 10/06/17 06:45: POC Glucose 114 H 10/06/17 11:25: POC Glucose 131 H Current Medications Acetaminophen (Tylenol) 650 mg PO Q6H PRN PRN PRN Reason: Mild Pain (scale 0-3)/T>100.7 Last Admin: 10/04/17 22:31 Dose: 650 mg Al Hydroxide/Mg Hydroxide (Mylanta Ii) 30 ml PO Q6H PRN PRN PRN Reason: Gastric Burning Albuterol Sulfate (Ventolin Aerosols) 2.5 mg INHALATION Q2H PRN PRN PRN Reason: SHORTNESS OF BREATH Albuterol/Ipratropium (Duoneb) 3 ml INHALATION Q4HWA.RT [facility] Last Admin: 10/06/17 15:28 Dose: 3 ml Bisacodyl (Dulcolax) 10 mg RECTAL DAILY PRN PRN PRN Reason: Constipation Dextrose (D50w Syringe) 0 gm IV X1 PRN; Protocol PRN Reason: Hypoglycemia Dicyclomine HCl (Bentyl) 20 mg PO Q6H PRN PRN PRN Reason: abd pain Docusate Sodium (Colace) 200 mg PO BID PRN PRN PRN Reason: Constipation Ferrous Sulf[facility] ([facility]) [facility] Last Admin: 10/06/17 09:28 Dose: 325 mg Furosemide (Lasix) 40 mg IV Q12 [facility] Glimepiride (Amaryl) [facility] Last Admin: 10/06/17 09:28 Dose: 2 mg Glucagon () 1 mg IM .X1 PRN PRN Reason: Hypoglycemia Guaifenesin (Mucinex) 1,200 mg PO BID [facility] Last Admin: 10/06/17 09:28 Dose: 1,200 mg Hydralazine HCl (Apresoline Iv) 10 mg IV Q4H PRN PRN PRN Reason: SBP >180 mmhg Insulin Aspart (Novolog Flexpen (Bkc)) 0 units SC ACHS [facility] PRN Reason: Protocol Last Admin: 10/06/17 11:28 Dose: Not Given Isosorbide Dinitrate (Isordil) 10 mg PO TID [facility] Last Admin: 10/06/17 14:15 Dose: 10 mg Lisinopril (Zestril) 5 mg PO DAILY [facility] Last Admin: 10/06/17 09:29 Dose: 5 mg Methylprednisolone (Solu-Medrol) 20 mg IV BID [facility] Last Admin: 10/06/17 09:29 Dose: 20 mg Metoprolol Succinate (Toprol Xl (Beta Vikki)) 25 mg PO DAILY [facility] Last Admin: 10/06/17 09:29 Dose: 25 mg Morphine Sulfate () 1 - 2 mg IV Q4H PRN PRN PRN Reason: SEVERE PAIN (6-10/10) Nitroglycerin (Nitrostat) 0.4 mg SUBLINGUAL Q5M PRN PRN Reason: CARDIAC/CHEST PAIN Nitroglycerin (Nitrobid) 1 inch TRANSDERM. Q6H PRN PRN PRN Reason: chest pain/SOB Ondansetron HCl (Zofran) 4 mg IV Q8H PRN PRN PRN Reason: Nausea Oxybutynin Chloride (Ditropan) 5 mg PO TID [facility] Last Admin: 10/06/17 05:52 Dose: 5 mg Oxycodone HCl (Oxyir) 5 mg PO Q4H PRN PRN PRN Reason: Moderate Pain (pain scale 4-5) Pantoprazole Sodium (Protonix) 40 mg PO DAILY [facility] Last Admin: 10/06/17 09:28 Dose: 40 mg Polyethylene Glycol (Miralax) 17 gm PO DAILY [facility] Last Admin: 10/06/17 09:28 Dose: Not Given Sodium Chloride () 5 - 30 ml IV UD PRN PRN Reason: SALINE FLUSH Last Admin: 10/06/17 09:34 Dose: 10 ml Zolpidem Tartrate (Ambien (Generic)) 5 mg PO QHS PRN PRN PRN Reason: INSOMNIA Medical Necessity - Tobacco Use Smoking Status: Former smoker Assessment/Plan Active and Suspected Problems Acute and chronic respiratory failure with hypoxia (Acute) Acute on chronic diastolic heart failure (Acute) Acute bronchitis with asthma with acute exacerbation (Acute) 1 acute on chronic diastolic congestive heart failure; to do on IV Lasix 40 mg daily 2 acute on chronic hypoxic respiratory failure secondary ; weaned off on supplemental oxygen. 3 Type 2 diabetes; she is on glimepiride and regular insulin sliding scale. 4 obstructive sleep apnea; at bedtime CPAP 5 morbid obesity; she is recommended. 6 Debility-PT and OT , ECF placement. 7 chronic lower extremity lymphedema; excess ordered. Code Visit Inpatient E&M: 68202 Subs Hosp L2
[2017-10-06 17:21] LABS: Bedside Glucose 116 mg/dL (70-110)
[2017-10-06 22:11] LABS: Bedside Glucose 94 mg/dL (70-110)
[2017-10-07] VITALS (15 sets, daily range): BP systolic 107–148; BP diastolic 61–78; PULSE 69–79; RESP 15–18; TEMP 36.7–37.4; O2SAT 94–97
[2017-10-07] MEDS: Isosorbide DN 10 MG Tablet PO ×3 (05:46→21:02)
[2017-10-07] MEDS: Oxybutynin 5 MG Tablet PO ×3 (05:46→21:02)
[2017-10-07 06:45] LABS: Bedside Glucose 124 mg/dL (70-110)
[2017-10-07] MEDS: Ipratropium/Albuterol Sulfate 3 ML AMPUL.NEB INHALATION ×3 (07:23→19:27)
[2017-10-07] MEDS: Glimepiride 2 MG Tablet PO (08:08)
[2017-10-07] MEDS: Ferrous Sulfate 325 MG Tablet PO (08:08)
[2017-10-07 09:31] LABS: BUN 28 mg/dL (7-18); BUN/Creat Ratio 33.5 RATIO (10-20); Calcium,Total 8.2 mg/dL (8.5-10.1); Carbon Dioxide > 45.0 mmol/L (21.0-32.0); Chloride 84 mmol/L (98-107); Creatinine, Serum 0.84 mg/dL (0.55-1.02); EST Glomerular Filtration Rate 76 mL/min (>60); Est Glom Filt Rate - Afr Amer 92 mL/min (>60); Estimated Creatinine Clearance 56.27 ml/min; Glucose 102 mg/dL (74-106); Potassium 3.6 mmol/L (3.5-5.1); Sodium Level 137 mmol/L (136-145)
[2017-10-07] MEDS: Pantoprazole Sodium 40 MG Tablet PO (10:28)
[2017-10-07] MEDS: Furosemide 40 MG/4 ML Vial IV (10:28)
[2017-10-07] MEDS: guaiFENesin 1,200 MG Tablet 1200 MG PO ×2 (10:28→21:02)
[2017-10-07] MEDS: 0.9% NaCl Peripheral Flush Adult/Peds IV ×2 (10:28→10:32)
[2017-10-07] MEDS: Metoprolol(XL)Succ 25 MG Tablet PO (10:30)
[2017-10-07] MEDS: Lisinopril 5 MG Tablet PO (10:30)
[2017-10-07 12:30] LABS: Bedside Glucose 95 mg/dL (70-110)
[2017-10-07] MEDS: Neomycin Sulfate/Polymyxin/Hc Susp 10 ML Bottle 4 DRP OTIC ×3 (14:41→21:02)
[2017-10-07] MEDS: oxyCODONE 5 MG Tablet PO ×2 (14:45→21:06)
[2017-10-07] MEDS: AcetaZOLAMIDE 250 MG Tablet PO ×2 (14:49→21:02)
[2017-10-07 16:06] LABS: Bedside Glucose 141 mg/dL (70-110)
--- NOTE | 2017-10-07 16:57 | PCM.PN.HOSP ---
Patient Problems: Active and Suspected Problems Acute and chronic respiratory failure with hypoxia (Acute) Acute on chronic diastolic heart failure (Acute) Acute bronchitis with asthma with acute exacerbation (Acute) Subjective: CC; shortness of breath Objective: The patient is not requiring supplemental oxygen. She denies any cough, fever, chills or chest pain today. She complains of left ear pain. Vitals/I&O's: Vital Signs Temp Pulse Resp BP Pulse Ox 98.7 F 69 18 107/61 95 10/07/17 15:31 10/07/17 15:31 10/07/17 15:31 10/07/17 15:31 10/07/17 15:31 Oxygen Flow Rate (L/min) 4 Oxygen Delivery Method Nasal Cannula Weight: 166.3 kg Body Mass Index (BMI) 76.7 Intake and Output for Last 24 Hours 10/05/17 10/06/17 10/07/17 23:59 23:59 23:59 Intake Total 770 / 770 2300 / 2300 460 / 460 Output Total 5450 / 5450 94062 / 54846 2550 / 2550 Balance -4680 / -4680 -7700 / -7700 -2090 / -2090 Microbiology Past 72 Hours 10/07/17 02:42 Stool Stool Occult Blood (JENNIFER) - Final Occult Blood Positive Laboratory Results 10/06/17 05:38: Sodium 141, Potassium 3.5, Chloride 90 L, Carbon Dioxide > 45.0 H*, Anion Gap TNP, BUN 23 H, Creatinine 0.92, Estim Creat Clear Calc 51.38, Est GFR (MDRD) Af Amer 82, Est GFR (MDRD) Non-Af 68, BUN/Creatinine Ratio 24.9 H, Glucose 119 H, Calcium 8.1 L 10/06/17 17:10: POC Glucose 116 H 10/06/17 21:54: POC Glucose 94 10/07/17 06:42: POC Glucose 124 H 10/07/17 08:25: Sodium 137, Potassium 3.6, Chloride 84 L, Carbon Dioxide > 45.0 H*, Anion Gap TNP, BUN 28 H, Creatinine 0.84, Estim Creat Clear Calc 56.27, Est GFR (MDRD) Af Amer 92, Est GFR (MDRD) Non-Af 76, BUN/Creatinine Ratio 33.5 H, Glucose 102, Calcium 8.2 L 10/07/17 12:19: POC Glucose 95 10/07/17 15:58: POC Glucose 141 H Current Medications Acetaminophen (Tylenol) 650 mg PO Q6H PRN PRN PRN Reason: Mild Pain (scale 0-3)/T>100.7 Last Admin: 10/04/17 22:31 Dose: 650 mg Acetazolamide (Diamox) 250 mg PO TID [facility] Last Admin: 10/07/17 14:49 Dose: 250 mg Al Hydroxide/Mg Hydroxide (Mylanta Ii) 30 ml PO Q6H PRN PRN PRN Reason: Gastric Burning Albuterol Sulfate (Ventolin Aerosols) 2.5 mg INHALATION Q2H PRN PRN PRN Reason: SHORTNESS OF BREATH Albuterol/Ipratropium (Duoneb) 3 ml INHALATION Q4HWA.RT [facility] Last Admin: 10/07/17 15:08 Dose: 3 ml Bisacodyl (Dulcolax) 10 mg RECTAL DAILY PRN PRN PRN Reason: Constipation Dextrose (D50w Syringe) 0 gm IV X1 PRN; Protocol PRN Reason: Hypoglycemia Dicyclomine HCl (Bentyl) 20 mg PO Q6H PRN PRN PRN Reason: abd pain Docusate Sodium (Colace) 200 mg PO BID PRN PRN PRN Reason: Constipation Ferrous Sulfate (F[facility]ous Sulfate) [facility] Last Admin: 10/07/17 08:08 Dose: 325 mg Glucagon () 1 mg IM .X1 PRN PRN Reason: Hypoglycemia Guaifenesin (Mucinex) 1,200 mg PO BID [facility] Last Admin: 10/07/17 10:28 Dose: 1,200 mg Hydralazine HCl (Apresoline Iv) 10 mg IV Q4H PRN PRN PRN Reason: SBP >180 mmhg Insulin Aspart (Novolog Flexpen (Bkc)) 0 units SC ACHS [facility] PRN Reason: Protocol Last Admin: 10/07/17 15:59 Dose: Not Given Isosorbide Dinitrate (Isordil) 10 mg PO TID [facility] Last Admin: 10/07/17 14:42 Dose: 10 mg Lisinopril (Zestril) 5 mg PO DAILY [facility] Last Admin: 10/07/17 10:30 Dose: 5 mg Methylprednisolone (Solu-Medrol) 20 mg IV BID [facility] Last Admin: 10/07/17 10:30 Dose: 20 mg Metoprolol Succinate (Toprol Xl (Beta Vikki)) 25 mg PO DAILY [facility] Last Admin: 10/07/17 10:30 Dose: 25 mg Morphine Sulfate () 1 - 2 mg IV Q4H PRN PRN PRN Reason: SEVERE PAIN (6-10/10) Neomycin/Polymyxin/Hydrocortisone (Otocort Susp) 4 drop OTIC 4X/DAY [facility] Last Admin: 10/07/17 14:41 Dose: 4 drop Nitroglycerin (Nitrostat) 0.4 mg SUBLINGUAL Q5M PRN PRN Reason: CARDIAC/CHEST PAIN Nitroglycerin (Nitrobid) 1 inch TRANSDERM. Q6H PRN PRN PRN Reason: chest pain/SOB Ondansetron HCl (Zofran) 4 mg IV Q8H PRN PRN PRN Reason: Nausea Oxybutynin Chloride (Ditropan) 5 mg PO TID [facility] Last Admin: 10/07/17 14:42 Dose: 5 mg Oxycodone HCl (Oxyir) 5 mg PO Q4H PRN PRN PRN Reason: Moderate Pain (pain scale 4-5) Last Admin: 10/07/17 14:45 Dose: 5 mg Pantoprazole Sodium (Protonix) 40 mg PO DAILY [facility] Last Admin: 10/07/17 10:28 Dose: 40 mg Polyethylene Glycol (Miralax) 17 gm PO DAILY [facility] Last Admin: 10/07/17 10:27 Dose: Not Given Sodium Chloride () 5 - 30 ml IV UD PRN PRN Reason: SALINE FLUSH Last Admin: 10/07/17 10:32 Dose: 10 ml Zolpidem Tartrate (Ambien (Generic)) 5 mg PO QHS PRN PRN PRN Reason: INSOMNIA Medical Necessity - Tobacco Use Smoking Status: Former smoker Assessment/Plan Active and Suspected Problems Acute and chronic respiratory failure with hypoxia (Acute) Acute on chronic diastolic heart failure (Acute) Acute bronchitis with asthma with acute exacerbation (Acute) 1 acute on chronic diastolic congestive heart failure; we will change to p.o. Lasix. 2 acute on chronic hypoxic respiratory failure secondary ; wean off on supplemental oxygen as tolerated 3 Type 2 diabetes; we will hold off on glimepiride and continue on regular insulin sliding scale 4 obstructive sleep apnea; at bedtime CPAP 5 morbid obesity; she is recommended. 6 Debility-PT and OT , ECF placement. 7 chronic lower extremity lymphedema; keep legs elevated, she is on diuretics. 8. Metabolic alkalosis likely contraction from IV Lasix, the patient will be placed on Diamox. 9. Left otitis externa; Cortisporin otic to apply. Code Visit Inpatient E&M: 27215 Subs Hosp L2
[2017-10-07] MEDS: Furosemide 20 MG Tablet PO (21:02)
[2017-10-07 21:45] LABS: Bedside Glucose 158 mg/dL (70-110)
[2017-10-08] VITALS (25 sets, daily range): BP systolic 96–141; BP diastolic 50–81; PULSE 64–145; RESP 16–22; TEMP 36.6–36.9; O2SAT 91–99
[2017-10-08] MEDS: Isosorbide DN 10 MG Tablet PO ×3 (05:37→21:25)
[2017-10-08] MEDS: Oxybutynin 5 MG Tablet PO ×3 (05:37→21:25)
[2017-10-08] MEDS: AcetaZOLAMIDE 250 MG Tablet PO ×3 (05:37→21:25)
[2017-10-08] MEDS: Enoxaparin 40 MG/0.4 ML Syringe SC (05:37)
[2017-10-08 07:05] LABS: Bedside Glucose 105 mg/dL (70-110)
[2017-10-08] MEDS: oxyCODONE 5 MG Tablet PO ×3 (08:45→21:30)
[2017-10-08] MEDS: Ferrous Sulfate 325 MG Tablet PO (08:46)
[2017-10-08] MEDS: guaiFENesin 1,200 MG Tablet 1200 MG PO ×2 (08:46→21:26)
[2017-10-08] MEDS: Furosemide 20 MG Tablet PO (08:46)
[2017-10-08] MEDS: Neomycin Sulfate/Polymyxin/Hc Susp 10 ML Bottle 4 DRP OTIC ×4 (08:46→21:26)
[2017-10-08] MEDS: Lisinopril 5 MG Tablet PO (08:47)
[2017-10-08] MEDS: Metoprolol(XL)Succ 25 MG Tablet PO (08:47)
[2017-10-08] MEDS: Pantoprazole Sodium 40 MG Tablet PO (08:47)
[2017-10-08 08:59] LABS: BUN 34 mg/dL (7-18); BUN/Creat Ratio 32.1 RATIO (10-20); Calcium,Total 8.4 mg/dL (8.5-10.1); Carbon Dioxide > 45.0 mmol/L (21.0-32.0); Chloride 86 mmol/L (98-107); Creatinine, Serum 1.06 mg/dL (0.55-1.02); EST Glomerular Filtration Rate 58 mL/min (>60); Est Glom Filt Rate - Afr Amer 70 mL/min (>60); Estimated Creatinine Clearance 44.59 ml/min; Glucose 104 mg/dL (74-106); Potassium 3.3 mmol/L (3.5-5.1); Sodium Level 136 mmol/L (136-145)
--- NOTE | 2017-10-08 09:02 | RAD_ITS ---
STUDY: X-RAY CHEST REASON FOR EXAM: Female, 52 years old. Dyspnea TECHNIQUE: Single AP portable view of the chest. COMPARISON: 10/06/2017 FINDINGS: No focal infiltrates or effusions. Continued decrease in vascular congestion in the lung bases. Stable mild cardiomegaly. Normal mediastinum and negra. Normal visualized pulmonary arteries. Normal visualized aortic arch and descending thoracic aorta. Normal visualized thoracic spine. Normal visualized ribs, clavicles, and shoulders. There is no demonstrated abnormality of the visualized soft tissue structures of the upper abdomen. RAD/Chest 1 View (Portable) IMPRESSION: Stable mild cardiomegaly. Improving vascular congestion which is mild. Electronically Signed: Mayuri Villatoro MD at 11:07 EDT Tel , Service support ,
[2017-10-08 09:41] LABS: Hematocrit 35.9 % (37-47); Hemoglobin 9.9 g/dl (12.0-15.0); Mean Corp Hgb Conc 27.6 g/gl (32-36); Mean Corpuscular Hgb 25.7 pg (27.0-32.0); Mean Corpuscular Volume 93.2 fL (81-99); Mean Platelet Vol. 9.9 fl (6.2-12.0); Platelet Count 213 K/mm3 (150-450); RBC Distribution Width CV 16.9 % (11.6-14.6); RBC Distribution Width SD 55.8 fl (35.1-43.9); Red Blood Count 3.85 M/mm3 (4.2-5.4); White Blood Count 8.7 K/mm3 (4.4-11.0)
[2017-10-08 09:42] LABS: Scan Indicated on CBC? Y/N NO
[2017-10-08] MEDS: 0.9% Normal Saline 1,000 ML 50 ML IV (10:21)
[2017-10-08] MEDS: 0.9% NaCl Peripheral Flush Adult/Peds IV (10:21)
[2017-10-08] MEDS: Ipratropium/Albuterol Sulfate 3 ML AMPUL.NEB INHALATION ×2 (11:21→23:00)
[2017-10-08 12:15] LABS: Bedside Glucose 168 mg/dL (70-110)
[2017-10-08] MEDS: Acetaminophen 325 MG Tablet 650 MG PO ×2 (13:42→21:29)
--- NOTE | 2017-10-08 14:48 | EKG12_ITS ---
Test Reason : RYTHMN CHANGE Blood Pressure : / mmHG Vent. Rate : 074 BPM Atrial Rate : 074 BPM P-R Int : 156 ms QRS Dur : 094 ms QT Int : 470 ms P-R-T Axes : 047 078 044 degrees QTc Int : 521 ms Normal sinus rhythm Prolonged QT Abnormal ECG Confirmed by SARAI RUBI, GRACE ([id number]), online content editor VICK BAH ([id number]) on 10/13/2017 2:36:05 PM Referred By: MIK Confirmed By:GRACE MOON MD
--- NOTE | 2017-10-08 15:42 | PCM.PN.HOSP ---
Patient Problems: Active and Suspected Problems Acute and chronic respiratory failure with hypoxia (Acute) Acute on chronic diastolic heart failure (Acute) Acute bronchitis with asthma with acute exacerbation (Acute) Subjective: CC: Shortness of breath Objective: The patient is noted to have atrial fibrillation with RVR today, she denies any chest pain , palpitations or rapid heartbeat. Vitals/I&O's: Vital Signs Temp Pulse Resp BP Pulse Ox 98.5 F 113 H 18 127/64 H 98 10/08/17 14:05 10/08/17 15:25 10/08/17 14:05 10/08/17 15:21 10/08/17 14:05 Oxygen Flow Rate (L/min) 2 Oxygen Delivery Method Nasal Cannula Weight: 166.3 kg Body Mass Index (BMI) 76.7 Intake and Output for Last 24 Hours 10/06/17 10/07/17 10/08/17 23:59 23:59 23:59 Intake Total 2300 / 2300 940 / 940 690 / 690 Output Total 27921 / 91625 4650 / 4650 1800 / 1800 Balance -7700 / -7700 -3710 / -3710 -1110 / -1110 General: Alert, Oriented x3 Oral: Moist Mucosa Neck: Supple Lungs: Clear to auscultation Cardiovascular: Regular rate, Normal S1, Normal S2 Abdomen: Bowel Sounds Present, Soft, Non Tender Neurological: Cranial nerves II-XII grossly intact, Deep Tendon Reflexes 2+/4 and Symmetrical, Motor Exam 5/5 strength throughout Microbiology Past 72 Hours 10/07/17 02:42 Stool Stool Occult Blood (JENNIFER) - Final Occult Blood Positive Laboratory Results 10/07/17 15:58: POC Glucose 141 H 10/07/17 20:58: POC Glucose 158 H 10/08/17 07:02: POC Glucose 105 10/08/17 08:25: Sodium 136, Potassium 3.3 L, Chloride 86 L, Carbon Dioxide > 45.0 H*, Anion Gap TNP, BUN 34 H, Creatinine 1.06 H, Estim Creat Clear Calc 44.59, Est GFR (MDRD) Af Amer 70, Est GFR (MDRD) Non-Af 58 L, BUN/Creatinine Ratio 32.1 H, Glucose 104, Calcium 8.4 L 10/08/17 08:25: WBC 8.7, RBC 3.85 L, Hgb 9.9 L, Hct 35.9 L, MCV 93.2, MCH 25.7 L, MCHC 27.6 L, RDW 16.9 H, RDW Differential 55.8 H, Plt Count 213, MPV 9.9 10/08/17 11:56: POC Glucose 168 H Current Medications Acetaminophen (Tylenol) 650 mg PO Q6H PRN PRN PRN Reason: Mild Pain (scale 0-3)/T>100.7 Last Admin: 10/08/17 13:42 Dose: 650 mg Acetazolamide (Diamox) 250 mg PO TID [facility] Last Admin: 10/08/17 13:33 Dose: 250 mg Al Hydroxide/Mg Hydroxide (Mylanta Ii) 30 ml PO Q6H PRN PRN PRN Reason: Gastric Burning Albuterol Sulfate (Ventolin Aerosols) 2.5 mg INHALATION Q2H PRN PRN PRN Reason: SHORTNESS OF BREATH Albuterol/Ipratropium (Duoneb) 3 ml INHALATION Q4HWA.RT [facility] Last Admin: 10/08/17 11:21 Dose: 3 ml Bisacodyl (Dulcolax) 10 mg RECTAL DAILY PRN PRN PRN Reason: Constipation Dextrose (D50w Syringe) 0 gm IV X1 PRN; Protocol PRN Reason: Hypoglycemia Dicyclomine HCl (Bentyl) 20 mg PO Q6H PRN PRN PRN Reason: abd pain Docusate Sodium (Colace) 200 mg PO BID PRN PRN PRN Reason: Constipation Ferrous Sulfate (Ferrous Sulfate) 325 mg PO DAILYCM [facility] Last Admin: 10/08/17 08:46 Dose: 325 mg Glucagon () 1 mg IM .X1 PRN PRN Reason: Hypoglycemia Guaifenesin (Mucinex) 1,200 mg PO BID [facility] Last Admin: 10/08/17 08:46 Dose: 1,200 mg Hydralazine HCl (Apresoline Iv) 10 mg IV Q4H PRN PRN PRN Reason: SBP >180 mmhg Sodium Chloride () 1,000 mls @ 50 mls/hr IV .Q20H [facility] Last Admin: 10/08/17 10:21 Dose: 50 mls/hr Diltiazem HCl 125 mg/ Dextrose 125 mls @ 5 mls/hr CONT INF .Q25H [facility] PRN Reason: 5 MG/HR Insulin Aspart (Novolog Flexpen (Bkc)) 0 units SC ACHS [facility] PRN Reason: Protocol Last Admin: 10/08/17 11:59 Dose: 2 u Isosorbide Dinitrate (Isordil) 10 mg PO TID [facility] Last Admin: 10/08/17 13:33 Dose: 10 mg Lisinopril (Zestril) 5 mg PO DAILY [facility] Last Admin: 10/08/17 08:47 Dose: 5 mg Metoprolol Succinate (Toprol Xl (Beta Vikki)) 25 mg PO DAILY [facility] Last Admin: 10/08/17 08:47 Dose: 25 mg Morphine Sulfate () 1 - 2 mg IV Q4H PRN PRN PRN Reason: SEVERE PAIN (6-10/10) Neomycin/Polymyxin/Hydrocortisone (Otocort Susp) 4 drop OTIC 4X/DAY [facility] Last Admin: 10/08/17 13:34 Dose: 4 drop Nitroglycerin (Nitrostat) 0.4 mg SUBLINGUAL Q5M PRN PRN Reason: CARDIAC/CHEST PAIN Nitroglycerin (Nitrobid) 1 inch TRANSDERM. Q6H PRN PRN PRN Reason: chest pain/SOB Ondansetron HCl (Zofran) 4 mg IV Q8H PRN PRN PRN Reason: Nausea Oxybutynin Chloride (Ditropan) 5 mg PO TID [facility] Last Admin: 10/08/17 13:33 Dose: 5 mg Oxycodone HCl (Oxyir) 5 mg PO Q4H PRN PRN PRN Reason: Moderate Pain (pain scale 4-5) Last Admin: 10/08/17 13:42 Dose: 5 mg Pantoprazole Sodium (Protonix) 40 mg PO DAILY [facility] Last Admin: 10/08/17 08:47 Dose: 40 mg Polyethylene Glycol (Miralax) 17 gm PO DAILY [facility] Last Admin: 10/08/17 08:46 Dose: Not Given Sodium Chloride () 5 - 30 ml IV UD PRN PRN Reason: SALINE FLUSH Last Admin: 10/08/17 10:21 Dose: 10 ml Zolpidem Tartrate (Ambien (Generic)) 5 mg PO QHS PRN PRN PRN Reason: INSOMNIA Medical Necessity - Tobacco Use Smoking Status: Former smoker Assessment/Plan Active and Suspected Problems Acute and chronic respiratory failure with hypoxia (Acute) Acute on chronic diastolic heart failure (Acute) Acute bronchitis with asthma with acute exacerbation (Acute) 1 acute on chronic diastolic congestive heart failure; we will change to p.o. Lasix. 2 acute on chronic hypoxic respiratory failure secondary ; wean off on supplemental oxygen as tolerated 3 atrial fibrillation with rapid ventricular response this is new onset; the patient will be started on Cardizem drip. 4.Type 2 diabetes; we will hold off on glimepiride and continue on regular insulin sliding scale 5 morbid obesity; wt. loss is recommended. 6 Debility-PT and OT , ECF placement. 7 chronic lower extremity lymphedema; keep legs elevated, she is on diuretics. 8. Metabolic alkalosis likely contraction from IV Lasix, she is on Diamox and will give gentle IV fluids. 9. Left otitis externa; Cortisporin otic to apply.
--- NOTE | 2017-10-08 15:46 | PN_ITS ---
Patient Problems: Active and Suspected Problems Acute and chronic respiratory failure with hypoxia (Acute) Acute on chronic diastolic heart failure (Acute) Acute bronchitis with asthma with acute exacerbation (Acute) Subjective: CC: Shortness of breath Objective: The patient is noted to have atrial fibrillation with RVR today, she denies any chest pain , palpitations or rapid heartbeat. Vitals/I&O's: Vital Signs Temp Pulse Resp BP Pulse Ox 98.5 F 113 H 18 127/64 H 98 10/08/17 14:05 10/08/17 15:25 10/08/17 14:05 10/08/17 15:21 10/08/17 14:05 Oxygen Flow Rate (L/min) 2 Oxygen Delivery Method Nasal Cannula Weight: 166.3 kg Body Mass Index (BMI) 76.7 Intake and Output for Last 24 Hours 10/06/17 10/07/17 10/08/17 23:59 23:59 23:59 Intake Total 2300 / 2300 940 / 940 690 / 690 Output Total 89926 / 41565 4650 / 4650 1800 / 1800 Balance -7700 / -7700 -3710 / -3710 -1110 / -1110 General: Alert, Oriented x3 Oral: Moist Mucosa Neck: Supple Lungs: Clear to auscultation Cardiovascular: Regular rate, Normal S1, Normal S2 Abdomen: Bowel Sounds Present, Soft, Non Tender Neurological: Cranial nerves II-XII grossly intact, Deep Tendon Reflexes 2+/4 and Symmetrical, Motor Exam 5/5 strength throughout Microbiology Past 72 Hours 10/07/17 02:42 Stool Stool Occult Blood (JENNIFER) - Final Occult Blood Positive Laboratory Results 10/07/17 15:58: POC Glucose 141 H 10/07/17 20:58: POC Glucose 158 H 10/08/17 07:02: POC Glucose 105 10/08/17 08:25: Sodium 136, Potassium 3.3 L, Chloride 86 L, Carbon Dioxide > 45.0 H*, Anion Gap TNP, BUN 34 H, Creatinine 1.06 H, Estim Creat Clear Calc 44.59, Est GFR (MDRD) Af Amer 70, Est GFR (MDRD) Non-Af 58 L, BUN/Creatinine Ratio 32.1 H, Glucose 104, Calcium 8.4 L 10/08/17 08:25: WBC 8.7, RBC 3.85 L, Hgb 9.9 L, Hct 35.9 L, MCV 93.2, MCH 25.7 L , MCHC 27.6 L, RDW 16.9 H, RDW Differential 55.8 H, Plt Count 213, MPV 9.9 10/08/17 11:56: POC Glucose 168 H Current Medications Acetaminophen (Tylenol) 650 mg PO Q6H PRN PRN PRN Reason: Mild Pain (scale 0-3)/T>100.7 Last Admin: 10/08/17 13:42 Dose: 650 mg Acetazolamide (Diamox) 250 mg PO TID [facility] Last Admin: 10/08/17 13:33 Dose: 250 mg Al Hydroxide/Mg Hydroxide (Mylanta Ii) 30 ml PO Q6H PRN PRN PRN Reason: Gastric Burning Albuterol Sulfate (Ventolin Aerosols) 2.5 mg INHALATION Q2H PRN PRN PRN Reason: SHORTNESS OF BREATH Albuterol/Ipratropium (Duoneb) 3 ml INHALATION Q4HWA.RT [facility] Last Admin: 10/08/17 11:21 Dose: 3 ml Bisacodyl (Dulcolax) 10 mg RECTAL DAILY PRN PRN PRN Reason: Constipation Dextrose (D50w Syringe) 0 gm IV X1 PRN; Protocol PRN Reason: Hypoglycemia Dicyclomine HCl (Bentyl) 20 mg PO Q6H PRN PRN PRN Reason: abd pain Docusate Sodium (Colace) 200 mg PO BID PRN PRN PRN Reason: Constipation Ferrous Sulfate (Ferrous Sulfate) 325 mg PO DAILYCM [facility] Last Admin: 10/08/17 08:46 Dose: 325 mg Glucagon () 1 mg IM .X1 PRN PRN Reason: Hypoglycemia Guaifenesin (Mucinex) 1,200 mg PO BID [facility] Last Admin: 10/08/17 08:46 Dose: 1,200 mg Hydralazine HCl (Apresoline Iv) 10 mg IV Q4H PRN PRN PRN Reason: SBP >180 mmhg Sodium Chloride () 1,000 mls @ 50 mls/hr IV .Q20H [facility] Last Admin: 10/08/17 10:21 Dose: 50 mls/hr Diltiazem HCl 125 mg/ Dextrose 125 mls @ 5 mls/hr CONT INF .Q25H [facility] PRN Reason: 5 MG/HR Insulin Aspart (Novolog Flexpen (Bkc)) 0 units SC ACHS [facility] PRN Reason: Protocol Last Admin: 10/08/17 11:59 Dose: 2 u Isosorbide Dinitrate (Isordil) 10 mg PO TID [facility] Last Admin: 10/08/17 13:33 Dose: 10 mg Lisinopril (Zestril) 5 mg PO DAILY [facility] Last Admin: 10/08/17 08:47 Dose: 5 mg Metoprolol Succinate (Toprol Xl (Beta Vikki)) 25 mg PO DAILY [facility] Last Admin: 10/08/17 08:47 Dose: 25 mg Morphine Sulfate () 1 - 2 mg IV Q4H PRN PRN PRN Reason: SEVERE PAIN (6-10/10) Neomycin/Polymyxin/Hydrocortisone (Otocort Susp) 4 drop OTIC 4X/DAY [facility] Last Admin: 10/08/17 13:34 Dose: 4 drop Nitroglycerin (Nitrostat) 0.4 mg SUBLINGUAL Q5M PRN PRN Reason: CARDIAC/CHEST PAIN Nitroglycerin (Nitrobid) 1 inch TRANSDERM. Q6H PRN PRN PRN Reason: chest pain/SOB Ondansetron HCl (Zofran) 4 mg IV Q8H PRN PRN PRN Reason: Nausea Oxybutynin Chloride (Ditropan) 5 mg PO TID [facility] Last Admin: 10/08/17 13:33 Dose: 5 mg Oxycodone HCl (Oxyir) 5 mg PO Q4H PRN PRN PRN Reason: Moderate Pain (pain scale 4-5) Last Admin: 10/08/17 13:42 Dose: 5 mg Pantoprazole Sodium (Protonix) 40 mg PO DAILY [facility] Last Admin: 10/08/17 08:47 Dose: 40 mg Polyethylene Glycol (Miralax) 17 gm PO DAILY [facility] Last Admin: 10/08/17 08:46 Dose: Not Given Sodium Chloride () 5 - 30 ml IV UD PRN PRN Reason: SALINE FLUSH Last Admin: 10/08/17 10:21 Dose: 10 ml Zolpidem Tartrate (Ambien (Generic)) 5 mg PO QHS PRN PRN PRN Reason: INSOMNIA Medical Necessity - Tobacco Use Smoking Status: Former smoker Assessment/Plan Active and Suspected Problems Acute and chronic respiratory failure with hypoxia (Acute) Acute on chronic diastolic heart failure (Acute) Acute bronchitis with asthma with acute exacerbation (Acute) 1 acute on chronic diastolic congestive heart failure; we will change to p.o. Lasix. 2 acute on chronic hypoxic respiratory failure secondary ; wean off on supplemental oxygen as tolerated 3 atrial fibrillation with rapid ventricular response this is new onset; the patient will be started on Cardizem drip. 4.Type 2 diabetes; we will hold off on glimepiride and continue on regular insulin sliding scale 5 morbid obesity; wt. loss is recommended. 6 Debility-PT and OT , ECF placement. 7 chronic lower extremity lymphedema; keep legs elevated, she is on diuretics. 8. Metabolic alkalosis likely contraction from IV Lasix, she is on Diamox and will give gentle IV fluids. 9. Left otitis externa; Cortisporin otic to apply.
[2017-10-08 16:55] LABS: Bedside Glucose 169 mg/dL (70-110)
--- NOTE | 2017-10-08 17:33 | EKG12_ITS ---
Test Reason : TACHYCARDIA Blood Pressure : / mmHG Vent. Rate : 111 BPM Atrial Rate : 267 BPM P-R Int : 000 ms QRS Dur : 096 ms QT Int : 394 ms P-R-T Axes : 000 073 031 degrees QTc Int : 535 ms Atrial fibrillation Nonspecific ST abnormality Prolonged QT Abnormal ECG When compared with ECG of 03-OCT-2017 23:18, Atrial fibrillation has replaced Sinus rhythm Confirmed by SARAI RUBI, GRACE ([id number]), photograph editor VICK BAH ([id number]) on 10/13/2017 2:36:31 PM Referred By: MIK Confirmed By:GRACE MOON MD
[2017-10-08 21:31] LABS: Bedside Glucose 158 mg/dL (70-110)
[2017-10-09] VITALS (21 sets, daily range): BP systolic 99–132; BP diastolic 54–76; PULSE 58–71; RESP 16–23; TEMP 36.1–36.7; O2SAT 95–99
[2017-10-09 05:37] LABS: Anion Gap 7 (5-15); BUN 41 mg/dL (7-18); Chloride 89 mmol/L (98-107); Creatinine, Serum 1.17 mg/dL (0.55-1.02); EST Glomerular Filtration Rate 52 mL/min (>60); Est Glom Filt Rate - Afr Amer 62 mL/min (>60); Glucose 119 mg/dL (74-106); Potassium 3.4 mmol/L (3.5-5.1); Sodium Level 137 mmol/L (136-145)
[2017-10-09] MEDS: 0.9% Normal Saline 1,000 ML 50 ML IV (06:28)
[2017-10-09] MEDS: Oxybutynin 5 MG Tablet PO ×2 (06:29→14:12)
[2017-10-09] MEDS: AcetaZOLAMIDE 250 MG Tablet PO ×2 (06:29→14:12)
[2017-10-09] MEDS: Isosorbide DN 10 MG Tablet PO ×2 (06:29→14:12)
[2017-10-09 07:05] LABS: Bedside Glucose 128 mg/dL (70-110)
[2017-10-09] MEDS: guaiFENesin 1,200 MG Tablet 1200 MG PO (09:23)
[2017-10-09] MEDS: Ferrous Sulfate 325 MG Tablet PO (09:23)
[2017-10-09] MEDS: Metoprolol(XL)Succ 25 MG Tablet PO (09:24)
[2017-10-09] MEDS: Lisinopril 5 MG Tablet PO (09:24)
[2017-10-09] MEDS: Pantoprazole Sodium 40 MG Tablet PO (09:24)
[2017-10-09] MEDS: Neomycin Sulfate/Polymyxin/Hc Susp 10 ML Bottle 4 DRP OTIC ×2 (09:25→14:12)
[2017-10-09 11:20] LABS: Bedside Glucose 169 mg/dL (70-110)
--- NOTE | 2017-10-09 12:50 | PCM.TXEXTCAR ---
- Diet Low salt diet - Wound(s) Left Hip Wound Type: Abrasion bilateral back of thighs Wound Type: Abrasion - Therapies Physical Therapy: Eval and Treat Occupational Therapy: Eval and Treat Speech Therapy: Eval and Treat - Allergies/Procedures Done in Hospital Allergies/Adverse Reactions: Allergies latex Allergy (Verified 08/05/17 21:19) Rash levofloxacin [From Levaquin] Adverse Reaction (Verified 08/05/17 21:19) SPEEDS UP MY HEART AND SHUTS DOWN MY KIDNEYS mushrooms Allergy (Uncoded 08/05/17 21:19) Anaphylaxis STRAWBERRIES Allergy (Uncoded 08/05/17 21:19) Rash - Type of Care/Length of Stay Estimated LOS: Convalescent Care Less Than 30 days Type of Care Needed: Skilled Rehab Potential: Fair Prognosis: Fair - Additional Orders/Day of Discharge H&P will serve as current which was dated: 10/04/17 Day of Discharge: 10/09/17 - Dietary and Speech Recommendations Dietitian Recommendations/Changes: Suggest diet change to 2000 vilma, carbohydrate-controlled, cardiac, low sodium, 1700 ml fluid restriction as needed. - Follow Up Care Primary Care Physician: Merrick Mace MD [Primary Care Provider] - In 1 Week
--- NOTE | 2017-10-09 12:53 | TREXTCAR_ITS ---
- Diet Low salt diet - Wound(s) Left Hip Wound Type: Abrasion bilateral back of thighs Wound Type: Abrasion - Therapies Physical Therapy: Eval and Treat Occupational Therapy: Eval and Treat Speech Therapy: Eval and Treat - Allergies/Procedures Done in Hospital Allergies/Adverse Reactions: Allergies latex Allergy (Verified 08/05/17 21:19) Rash levofloxacin [From Levaquin] Adverse Reaction (Verified 08/05/17 21:19) SPEEDS UP MY HEART AND SHUTS DOWN MY KIDNEYS mushrooms Allergy (Uncoded 08/05/17 21:19) Anaphylaxis STRAWBERRIES Allergy (Uncoded 08/05/17 21:19) Rash - Type of Care/Length of Stay Estimated LOS: Convalescent Care Less Than 30 days Type of Care Needed: Skilled Rehab Potential: Fair Prognosis: Fair - Additional Orders/Day of Discharge H&P will serve as current which was dated: 10/04/17 Day of Discharge: 10/09/17 - Dietary and Speech Recommendations Dietitian Recommendations/Changes: Suggest diet change to 2000 vilma, carbohydrate -controlled, cardiac, low sodium, 1700 ml fluid restriction as needed. - Follow Up Care Primary Care Physician: Merrick Mace MD [Primary Care Provider] - In 1 Week
--- NOTE | 2017-10-09 12:53 | PCM.DC.SUM ---
Discharge Date and Diagnosis Date of Admission: 10/04/17 - Primary Discharge Diagnosis Active and Suspected Problems Acute and chronic respiratory failure with hypoxia (Acute) Acute on chronic diastolic heart failure (Acute) Acute bronchitis with asthma with acute exacerbation (Acute) - Secondary Discharge Diagnosis Chronic Problems acute on chronic blood loss anemia (Chronic) Wide-complex tachycardia (Chronic) Chronic diastolic CHF (congestive heart failure) (Chronic) Type 2 diabetes mellitus (Chronic) HgbA1c 06/2016 6.5%. 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 Patient later developed metabolic alkalosis and acute kidney injury from diuresis . Then started on acetazolamide and giving gentle hydration, the metabolic alkalosis has not improved . Patient is significantly deconditioned and underwent physical and outpatient therapy was recommended post acute care therapy, she was discharged to TCU stable condition.. 1 acute on chronic diastolic congestive heart failure; started on Lasix 20 mg twice daily. 2 acute on chronic hypoxic respiratory failure secondary ; wean off on supplemental oxygen as tolerated 3 atrial fibrillation with rapid ventricular response this is new onset; Cardizem but no anticoagulation due to heme-positive stools. 4.Type 2 diabetes; her on glimepiride. 5 morbid obesity; wt. loss is recommended. 6 Debility-PT and OT , ECF placement acute care rehabilitation. 7 chronic lower extremity lymphedema; keep legs elevated, she is on diuretics. 8. Metabolic alkalosis likely contraction from IV Lasix, she is on Diamox , BMP in 3 days. 9. Left otitis externa; given Cortisporin otic to apply. 10. Positive stools the patient should undergo EGD and colonoscopy as an outpatient. Discharge Diet: No Restrictions Home Medications: Medications to take at Discharge Albuterol Sulfate [Ventolin Hfa] 2 puff INHALATION Q4H PRN PRN 01/08/17 Pantoprazole Sodium [Protonix] 40 mg PO DAILY 02/13/17 Lisinopril [Prinivil] 5 mg PO DAILY 03/06/17 Metoprolol(XL)Succ [Toprol Xl (Beta Vikki)] 25 mg PO DAILY 03/06/17 Acetaminophen [Tylenol Tablet] 650 mg PO Q6H PRN PRN 03/10/17 Dicyclomine HCl [Bentyl] 20 mg PO Q6H PRN PRN 03/10/17 Glimepiride [Amaryl] 1 tab PO DAILY 08/05/17 Multivitamin [Daily Multiple Vitamin] 1 each PO DAILY 08/05/17 Oxybutynin Chloride [Ditropan Xl] 15 mg PO DAILY 08/05/17 Ferrous Sulfate 325 mg PO DAILY #60 tab 08/08/17 Guaifenesin [Mucinex] 1,200 mg PO BID 10/04/17 AcetaAZOLAMIDE [Diamox] 250 mg PO TID 10/09/17 Diltiazem CD [Cardizem CD] 240 mg PO DAILY 10/09/17 Docusate Sodium [Colace] 200 mg PO BID PRN PRN capsule 10/09/17 Furosemide [Lasix] 20 mg PO BIDLX 10/09/17 Polyethylene Glycol 3350 [Miralax] 17 gm PO DAILY 10/09/17 Primary Care Physician: Merrick Mace MD [Primary Care Provider] - In 1 Week Medical Necessity - Tobacco Use Smoking Status: Former smoker Meaningful Use Info Meaningful Use Diagnoses (Choose all that apply): None applicable Code Visit Inpatient E&M: 09631 Disch Hosp
--- NOTE | 2017-10-09 13:30 | CASEMGMT ---
Social Work Per kojo, pt is ready for d/c today. Phone call to Janet in TCU and informed that pt will be coming to TCU today. Met with pt in the room and informed her that pt d/c is planned for today. Questions regarding TCU answered. Offered to call family to inform of d/c plan but pt declined stating she will call her when he is off work. Plan: RADHA Quinones
--- NOTE | 2017-10-09 15:16 | NURSING ---
report called to Maren CALZADA on TCU at [phone]
== END 2017-10-09 16:00 | disposition skilled nursing facility (03) | DRG 291 ==
LOC: ED 22:59 → PCU 10-04 00:46
PROVIDERS: Internal Medicine; Admitting Provider Internal Medicine; Emergency Provider Emergency Medicine; Family Provider Family Medicine; PCP Family Medicine; Visit Provider Internal Medicine
DX: I11.0 Hypertensive heart disease with heart failure (principal); J96.21 Acute and chronic respiratory failure with hypoxia; J45.901 Unspecified asthma with (acute) exacerbation; Z68.45 Body mass index [BMI] 70 or greater, adult; E87.3 Alkalosis; D62 Acute posthemorrhagic anemia; I50.33 Acute on chronic diastolic (congestive) heart failure; J20.9 Acute bronchitis, unspecified; G47.33 Obstructive sleep apnea (adult) (pediatric); I89.0 Lymphedema, not elsewhere classified; I27.20 Pulmonary hypertension, unspecified; E66.01 Morbid (severe) obesity due to excess calories; Z71.3 Dietary counseling and surveillance; H60.92 Unspecified otitis externa, left ear; I48.91 Unspecified atrial fibrillation; Z99.81 Dependence on supplemental oxygen; D50.0 Iron deficiency anemia secondary to blood loss (chronic); E11.42 Type 2 diabetes mellitus with diabetic polyneuropathy; E78.5 Hyperlipidemia, unspecified; Z87.891 Personal history of nicotine dependence; Z87.01 Personal history of pneumonia (recurrent); D69.6 Thrombocytopenia, unspecified
CPT/HCPCS: 36415; 71045; 80048; 80061; 81002; 82274; 82962; 83036; 83735; 83880; 84443; 84484; 85025; 85027; 87040; 87449; 87641; 87804; 93005; 93306; 94640; 94668; 97110; 97163; 97166; 97530; 97535; 99285; J7030; Q9957; A4216; C8929; J1940

== ENCOUNTER 2017-10-09 16:00 | Inpatient (IN) | payer MEDICARE, SELFPAY ==
--- NOTE | 2017-10-09 16:00 | NURSING ---
pt arrived from [facility] via [facility]
[2017-10-09 16:49] VITALS: BP 133/73; PULSE 68; RESP 22; TEMP 36.3; O2SAT 95
[2017-10-09 16:55] VITALS: BMI 66.7
[2017-10-09 16:56] VITALS: BMI 66.7
--- NOTE | 2017-10-09 17:09 | NURSING ---
CODE STATUS DISCUSSED WITH R' AND WHO IS IN ROOM. WISHES TO BE DNR-CCA. PAPER SIGNED, PURPLE BRACELET APPLIED.
[2017-10-09 17:15] VITALS: O2SAT 95
[2017-10-09 17:16] LABS: Bedside Glucose 240 mg/dL (70-110)
[2017-10-09] MEDS: guaiFENesin 1,200 MG Tablet 1200 MG PO (18:23)
[2017-10-09 18:39] VITALS: O2SAT 96
--- NOTE | 2017-10-09 18:45 | RAD_ITS ---
STUDY: X-RAY - ABDOMEN/PELVIS REASON FOR EXAM: Female, 52 years old. Diarrhea TECHNIQUE: 3 views COMPARISON: December 12, 2016 FINDINGS: Normal visualized lung bases. There is an unremarkable bowel gas pattern. There is no demonstrated free abdominal air. Cholelithiasis. Normal soft tissue structures. Normal visualized osseous structures. RAD/Abdomen Single View IMPRESSION: No bowel obstruction. Cholelithiasis. Electronically Signed: Nazario Guerrero DO at 19:14 EDT Tel [phone], Service support ,
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
[2017-10-09 21:06] LABS: Bedside Glucose 154 mg/dL (70-110)
[2017-10-09] MEDS: AcetaZOLAMIDE 250 MG Tablet PO (21:07)
[2017-10-09] MEDS: Menthol/Lanolin/Calamine/Znox 113 GM Tube 1 APPLIC TOPICAL (21:08)
[2017-10-09] MEDS: Nystatin Powder 15gm Bottle 1 APPLIC TOPICAL (21:08)
[2017-10-09] MEDS: Magnesium Citrate 300 ML PO (23:03)
[2017-10-10] MEDS: Tolterodine Tartrate 4 MG CAP.SA PO (05:46)
[2017-10-10] MEDS: Lisinopril 5 MG Tablet PO (05:46)
[2017-10-10] MEDS: guaiFENesin 1,200 MG Tablet 1200 MG PO ×2 (05:46→17:18)
[2017-10-10] MEDS: AcetaZOLAMIDE 250 MG Tablet PO ×3 (05:46→22:15)
[2017-10-10] MEDS: Pantoprazole Sodium 40 MG Tablet PO (05:46)
[2017-10-10] MEDS: dilTIAZem CD 240 MG Capsule PO (05:46)
[2017-10-10] MEDS: Furosemide 20 MG Tablet PO ×2 (05:46→14:13)
[2017-10-10] MEDS: Polyethylene Glycol 3350 17 GM PACKET PO (05:46)
[2017-10-10] MEDS: Senna/Docusate Sodium 1 Tablet PO ×2 (05:46→17:19)
[2017-10-10] MEDS: Nystatin Powder 15gm Bottle 1 APPLIC TOPICAL ×2 (05:49→22:17)
[2017-10-10 05:50] LABS: Absolute Lymphocyte Count 1.16 X10^3/ul (0.83-4.51); Absolute Neutrophil Count 6.8 X10^3/uL (2.0-7.7); Basophil# 0.01 X10^3/uL; Basophil% 0.1 % (0-1); Eosinophil# 0.58 X10^3/uL; Eosinophils% 6.4 % (0-5); Hematocrit 33.3 % (37-47); Lymphocyte # 1.16 X10^3/ul (4.0); Lymphocyte % 12.8 % (19-41); Mean Corpuscular Hgb 24.9 pg (27.0-32.0); Mean Corpuscular Volume 92.2 fL (81-99); Mean Platelet Vol. 9.6 fl (6.2-12.0); Monocyte# 0.51 X10^3/uL; Monocyte% 5.6 % (0-10); Neutrophil # 6.78 X10^3/uL (2.7-7.7); Neutrophil % 74.9 % (47-70); Platelet Count 170 K/mm3 (150-450); RBC Distribution Width CV 17.2 % (11.6-14.6); RBC Distribution Width SD 58.8 fl (35.1-43.9); Red Blood Count 3.61 M/mm3 (4.2-5.4); White Blood Count 9.1 K/mm3 (4.4-11.0)
[2017-10-10] MEDS: Enoxaparin 40 MG/0.4 ML Syringe SC (05:50)
[2017-10-10] MEDS: Menthol/Lanolin/Calamine/Znox 113 GM Tube 1 APPLIC TOPICAL ×3 (05:50→22:17)
[2017-10-10 05:51] VITALS: BP 139/74; PULSE 71
[2017-10-10] MEDS: Metoprolol(XL)Succ 25 MG Tablet PO (05:51)
[2017-10-10 05:52] LABS: POSITIVE COUNT NO; POSITIVE DIFFERENTIAL NO; POSITIVE MORPHOLOGY NO
[2017-10-10 06:07] LABS: Anion Gap 4 (5-15); BUN 44 mg/dL (7-18); BUN/Creat Ratio 40.7 RATIO (10-20); Calcium,Total 8.2 mg/dL (8.5-10.1); Chloride 94 mmol/L (98-107); Creatinine, Serum 1.08 mg/dL (0.55-1.02); EST Glomerular Filtration Rate 57 mL/min (>60); Est Glom Filt Rate - Afr Amer 68 mL/min (>60); Estimated Creatinine Clearance 43.77 ml/min; Glucose 119 mg/dL (74-106); Potassium 3.7 mmol/L (3.5-5.1); Sodium Level 140 mmol/L (136-145)
[2017-10-10 06:46] LABS: Bedside Glucose 117 mg/dL (70-110)
[2017-10-10 06:55] VITALS: O2SAT 96
[2017-10-10] MEDS: Multivitamins,Therapeutic Tablet 1 TABLET PO (08:50)
[2017-10-10] MEDS: Iron Polysaccharide Complex 150 MG CAPSULE PO (08:50)
[2017-10-10] MEDS: Glimepiride 2 MG Tablet PO (08:50)
[2017-10-10 10:46] LABS: Bedside Glucose 153 mg/dL (70-110)
[2017-10-10] MEDS: Tuberculin,Purif.prot.deriv. 50 TU/ML Vial 5 ML ID (11:24)
[2017-10-10] MEDS: Electrolyte Solution/Peg's 4000 ML 2000 ML PO (14:12)
[2017-10-10 15:47] VITALS: BP 105/52; PULSE 66; RESP 18; TEMP 36.3; O2SAT 97
[2017-10-10 17:05] LABS: Bedside Glucose 102 mg/dL (70-110)
--- NOTE | 2017-10-10 18:52 | PCM.PN.RX ---
<Kunal Hendrickson - Last Filed: 10/10/17 18:52> Progress Note - Pharmacy Subjective: TCU Admission Objective: Allergies latex Allergy (Verified 08/05/17 21:19) Rash levofloxacin [From Levaquin] Adverse Reaction (Verified 08/05/17 21:19) SPEEDS UP MY HEART AND SHUTS DOWN MY KIDNEYS mushrooms Allergy (Uncoded 08/05/17 21:19) Anaphylaxis STRAWBERRIES Allergy (Uncoded 08/05/17 21:19) Rash Home Medications Medication Instructions Recorded Albuterol Sulfate [Ventolin Hfa] 2 puff INHALATION Q4H PRN PRN 01/08/17 Pantoprazole Sodium [Protonix] 40 mg PO DAILY 02/13/17 Lisinopril [Prinivil] 5 mg PO DAILY 03/06/17 Metoprolol(XL)Succ [Toprol Xl 25 mg PO DAILY 03/06/17 (Beta Vikki)] Acetaminophen [Tylenol Tablet] 650 mg PO Q6H PRN PRN 03/10/17 Dicyclomine HCl [Bentyl] 20 mg PO Q6H PRN PRN 03/10/17 Glimepiride [Amaryl] 1 tab PO DAILY 08/05/17 Multivitamin [Daily Multiple 1 each PO DAILY 08/05/17 Vitamin] Oxybutynin Chloride [Ditropan Xl] 15 mg PO DAILY 08/05/17 Ferrous Sulfate 325 mg PO DAILY #60 tab 08/08/17 Guaifenesin [Mucinex] 1,200 mg PO BID 10/04/17 AcetaAZOLAMIDE [Diamox] 250 mg PO TID 10/09/17 Diltiazem CD [Cardizem CD] 240 mg PO DAILY 10/09/17 Docusate Sodium [Colace] 200 mg PO BID PRN PRN capsule 10/09/17 Furosemide [Lasix] 20 mg PO BIDLX 10/09/17 Polyethylene Glycol 3350 [Miralax] 17 gm PO DAILY 10/09/17 Current Medications Generic Name Dose Route Start Last Admin Trade Name Freq PRN Reason Stop Dose Admin Acetaminophen 1,000 mg 10/09/17 20:53 Tylenol PO Q8H PRN PRN MILD PAIN (1-3/10) Acetazolamide 250 mg 10/09/17 22:00 10/10/17 14:13 Diamox PO 250 mg TID ANIA Administration Albuterol Sulfate 2 puff 10/09/17 17:01 Ventolin Hfa (Sp) INHALATION Q4H PRN PRN SOB &/OR WHEEZING Bisacodyl 10 mg 10/09/17 20:52 Dulcolax PO DAILY PRN Constipation Calamine/Phenol 1 applic 10/09/17 22:00 10/10/17 14:14 Calmoseptine Ointment TOPICAL 1 applicatio TID ANIA Administration Protocol Dicyclomine HCl 20 mg 10/09/17 17:01 Bentyl PO Q6H PRN PRN abd pain Diltiazem HCl 240 mg 10/10/17 06:00 10/10/17 05:46 Cardizem Cd PO 240 mg DAILY ANIA Administration Emollient Ointment 1 applic 10/09/17 17:33 Eucerin Intensive Repair TOPICAL 4X/DAY PRN PRN DRY SKIN Protocol Enoxaparin Sodium 40 mg 10/10/17 06:00 10/10/17 05:50 Lovenox SC 40 mg DAILY@0600 ANIA Administration Furosemide 20 mg 10/10/17 06:00 10/10/17 14:13 Lasix PO 20 mg BIDLX ANIA Administration Glimepiride 2 mg 10/10/17 08:00 10/10/17 08:50 Amaryl PO 2 mg DAILYCM ANIA Administration Guaifenesin 1,200 mg 10/09/17 18:00 10/10/17 17:18 Mucinex PO 1,200 mg BID ANIA Administration Lisinopril 5 mg 10/10/17 06:00 10/10/17 05:46 Zestril PO 5 mg DAILY ANIA Administration Metoprolol Succinate 25 mg 10/10/17 06:00 10/10/17 05:51 Toprol Xl (Beta Vikki) PO 25 mg DAILY ANIA Administration Multivitamins 1 tablet 10/10/17 08:00 10/10/17 08:50 Multivitamin PO 1 tablet DAILY@0800 ANIA Administration Nystatin 1 applic 10/09/17 22:00 10/10/17 05:49 Mycostatin Powder TOPICAL 1 applicatio BID@0600,2200 ANIA Administration Protocol Pantoprazole Sodium 40 mg 10/10/17 06:00 10/10/17 05:46 Protonix PO 40 mg DAILY ANIA Administration Polyethylene Glycol 17 gm 10/10/17 06:00 10/10/17 05:46 Miralax PO 17 gm DAILY ANIA Administration Polysaccharide Iron Complex 150 mg 10/10/17 08:00 10/10/17 08:50 Ferrex 150 PO 150 mg DAILYCM ANIA Administration Senna/Docusate Sodium 1 tablet 10/10/17 06:00 10/10/17 17:19 Senokot-S, Chani-Colace PO 1 tablet BID ANIA Administration Tolterodine Tartrate 4 mg 10/10/17 06:00 10/10/17 05:46 Detrol La PO 4 mg DAILY ANIA Administration Tuberculin PPD 5 tu 10/17/17 10:00 Tubersol, Aplisol, Ppd ID 10/17/17 10:01 X1 ONE Problem List Shortness of breath (Acute) Acute on chronic diastolic heart failure (Acute) Acute bronchitis (Acute) Atrial fibrillation with RVR (Acute) Otitis externa (Acute) Metabolic alkalosis (Acute) Blood in stool (Acute) Morbid obesity (Chronic) Anemia (Chronic) GERD (gastroesophageal reflux disease) (Chronic) Irritable bowel syndrome (Chronic) Overactive bladder (Chronic) Vital Signs Temp Pulse Resp BP Pulse Ox 97.3 F L 66 18 105/52 L 97 10/10/17 15:47 10/10/17 15:47 10/10/17 15:47 10/10/17 15:47 10/10/17 15:47 Oxygen Flow Rate (L/min) 4 Oxygen Delivery Method Nasal Cannula Weight: 154.993 kg Body Mass Index (BMI) 66.7 Sodium 140 mmol/L (136-145) 10/10/17 05:15 Potassium 3.7 mmol/L (3.5-5.1) 10/10/17 05:15 Chloride 94 mmol/L (98-107) L 10/10/17 05:15 Carbon Dioxide 42.0 mmol/L (21.0-32.0) H 10/10/17 05:15 Anion Gap 4 (5-15) L 10/10/17 05:15 BUN 44 mg/dL (7-18) H 10/10/17 05:15 Creatinine 1.08 mg/dL (0.55-1.02) H 10/10/17 05:15 Est GFR (MDRD) Af Amer 68 mL/min (>60) 10/10/17 05:15 Est GFR (MDRD) Non-Af 57 mL/min (>60) L 10/10/17 05:15 BUN/Creatinine Ratio 40.7 RATIO (10-20) H 10/10/17 05:15 Glucose 119 mg/dL (74-106) H 10/10/17 05:15 Assessment/Plan: 1) Pain APAP for mild pain. Continue to monitor daily pain scores, prn medication use. 2) DM2 Glimepiride daily. Avg BGT < 200 mg/dL. Continue to monitor BGT, s/s hyper/hypoglycemia. 3) Metabolic Alkalosis Acetazolamide 3x daily. Continue to monitor electrolytes. 4) CHF/AFib Diltiazem, lisinopril, metoprolol, furosemide. BP/HR within goal ranges, K wnl, BUN/SCr at baseline. Continue to monitor BP/HR, renal function, electrolytes. 5) DVT PPx Enoxaparin daily. Continue to monitor s/s bleeding/clot. 6) Nutrition Fe, multivitamin. Continue to monitor clinically. 7) GI Pantoprazole daily, dicyclomine prn. Continue to monitor s/s GI distress, prn medication use. 8) Tolterodine daily. Continue to monitor for OAB. Psychotropic Medications: None Unnecessary Medications: None Bowel Regimen: 9) Senna/s, PEG, prn bisacodyl. Continue to monitor prn medication use, for constipation/diarrhea. Date of Note:: 10/10/17 - Provider Comments Provider responsibility: Provider responsible to enter orders to implement recommendations <Jovani Branch Chi - Last Filed: 10/10/17 19:55> Progress Note - Pharmacy Subjective: [] Objective: Allergies latex Allergy (Verified 08/05/17 21:19) Rash levofloxacin [From Levaquin] Adverse Reaction (Verified 08/05/17 21:19) SPEEDS UP MY HEART AND SHUTS DOWN MY KIDNEYS mushrooms Allergy (Uncoded 08/05/17 21:19) Anaphylaxis STRAWBERRIES Allergy (Uncoded 08/05/17 21:19) Rash Home Medications Medication Instructions Recorded Albuterol Sulfate [Ventolin Hfa] 2 puff INHALATION Q4H PRN PRN 01/08/17 Pantoprazole Sodium [Protonix] 40 mg PO DAILY 02/13/17 Lisinopril [Prinivil] 5 mg PO DAILY 03/06/17 Metoprolol(XL)Succ [Toprol Xl 25 mg PO DAILY 03/06/17 (Beta Vikki)] Acetaminophen [Tylenol Tablet] 650 mg PO Q6H PRN PRN 03/10/17 Dicyclomine HCl [Bentyl] 20 mg PO Q6H PRN PRN 03/10/17 Glimepiride [Amaryl] 1 tab PO DAILY 08/05/17 Multivitamin [Daily Multiple 1 each PO DAILY 08/05/17 Vitamin] Oxybutynin Chloride [Ditropan Xl] 15 mg PO DAILY 08/05/17 Ferrous Sulfate 325 mg PO DAILY #60 tab 08/08/17 Guaifenesin [Mucinex] 1,200 mg PO BID 10/04/17 AcetaAZOLAMIDE [Diamox] 250 mg PO TID 10/09/17 Diltiazem CD [Cardizem CD] 240 mg PO DAILY 10/09/17 Docusate Sodium [Colace] 200 mg PO BID PRN PRN capsule 10/09/17 Furosemide [Lasix] 20 mg PO BIDLX 10/09/17 Polyethylene Glycol 3350 [Miralax] 17 gm PO DAILY 10/09/17 Current Medications Generic Name Dose Route Start Last Admin Trade Name Freq PRN Reason Stop Dose Admin Acetaminophen 1,000 mg 10/09/17 20:53 Tylenol PO Q8H PRN PRN MILD PAIN (1-3/10) Acetazolamide 250 mg 10/09/17 22:00 10/10/17 14:13 Diamox PO 250 mg TID [facility] Administration Albuterol Sulfate 2 puff 10/09/17 17:01 Ventolin Hfa (Sp) INHALATION Q4H PRN PRN SOB &/OR WHEEZING Bisacodyl 10 mg 10/09/17 20:52 Dulcolax PO DAILY PRN Constipation Calamine/Phenol 1 applic 10/09/17 22:00 10/10/17 14:14 Calmoseptine Ointment TOPICAL 1 applicatio TID [facility] Administration Protocol Dicyclomine HCl 20 mg 10/09/17 17:01 Bentyl PO Q6H PRN PRN abd pain Diltiazem HCl 240 mg 10/10/17 06:00 10/10/17 05:46 Cardizem Cd PO 240 mg DAILY ANIA Administration Emollient Ointment 1 applic 10/09/17 17:33 Eucerin Intensive Repair TOPICAL 4X/DAY PRN PRN DRY SKIN Protocol Enoxaparin Sodium 40 mg 10/10/17 06:00 10/10/17 05:50 Lovenox SC 40 mg DAILY@0600 ANIA Administration Furosemide 20 mg 10/10/17 06:00 10/10/17 14:13 Lasix PO 20 mg BIDLX ANIA Administration Glimepiride 2 mg 10/10/17 08:00 10/10/17 08:50 Amaryl PO 2 mg DAILYCM ANIA Administration Guaifenesin 1,200 mg 10/09/17 18:00 10/10/17 17:18 Mucinex PO 1,200 mg BID [facility] Administration Lisinopril 5 mg 10/10/17 06:00 10/10/17 05:46 Zestril PO 5 mg DAILY ANIA Administration Metoprolol Succinate 25 mg 10/10/17 06:00 10/10/17 05:51 Toprol Xl (Beta Vikki) PO 25 mg DAILY ANIA Administration Multivitamins 1 tablet 10/10/17 08:00 10/10/17 08:50 Multivitamin PO 1 tablet DAILY@0800 ANIA Administration Nystatin 1 applic 10/09/17 22:00 10/10/17 05:49 Mycostatin Powder TOPICAL 1 applicatio BID@0600,2200 [facility] Administration Protocol Pantoprazole Sodium 40 mg 10/10/17 06:00 10/10/17 05:46 Protonix PO 40 mg DAILY ANIA Administration Polyethylene Glycol 17 gm 10/10/17 06:00 10/10/17 05:46 Miralax PO 17 gm DAILY ANIA Administration Polysaccharide Iron Complex 150 mg 10/10/17 08:00 10/10/17 08:50 Ferrex 150 PO 150 mg DAILYCM ANIA Administration Senna/Docusate Sodium 1 tablet 10/10/17 06:00 10/10/17 17:19 Senokot-S, Chani-Colace PO 1 tablet BID ANIA Administration Tolterodine Tartrate 4 mg 10/10/17 06:00 10/10/17 05:46 Detrol La PO 4 mg DAILY ANIA Administration Tuberculin PPD 5 tu 10/17/17 10:00 Tubersol, Aplisol, Ppd ID 10/17/17 10:01 X1 ONE Problem List Shortness of breath (Acute) Acute on chronic diastolic heart failure (Acute) Acute bronchitis (Acute) Atrial fibrillation with RVR (Acute) Otitis externa (Acute) Metabolic alkalosis (Acute) Blood in stool (Acute) Morbid obesity (Chronic) Anemia (Chronic) GERD (gastroesophageal reflux disease) (Chronic) Irritable bowel syndrome (Chronic) Overactive bladder (Chronic) Vital Signs Temp Pulse Resp BP Pulse Ox 97.3 F L 66 18 105/52 L 97 10/10/17 15:47 10/10/17 15:47 10/10/17 15:47 10/10/17 15:47 10/10/17 15:47 Oxygen Flow Rate (L/min) 4 Oxygen Delivery Method Nasal Cannula Weight: 154.993 kg Body Mass Index (BMI) 66.7 Sodium 140 mmol/L (136-145) 10/10/17 05:15 Potassium 3.7 mmol/L (3.5-5.1) 10/10/17 05:15 Chloride 94 mmol/L (98-107) L 10/10/17 05:15 Carbon Dioxide 42.0 mmol/L (21.0-32.0) H 10/10/17 05:15 Anion Gap 4 (5-15) L 10/10/17 05:15 BUN 44 mg/dL (7-18) H 10/10/17 05:15 Creatinine 1.08 mg/dL (0.55-1.02) H 10/10/17 05:15 Est GFR (MDRD) Af Amer 68 mL/min (>60) 10/10/17 05:15 Est GFR (MDRD) Non-Af 57 mL/min (>60) L 10/10/17 05:15 BUN/Creatinine Ratio 40.7 RATIO (10-20) H 10/10/17 05:15 Glucose 119 mg/dL (74-106) H 10/10/17 05:15 Assessment/Plan: Psychotropic Medications: Unnecessary Medications: Bowel Regimen: - Provider Comments Provider responsibility: Provider responsible to enter orders to implement recommendations Provider Comments to Recommendations by Pharmacy: Agree
--- NOTE | 2017-10-10 19:00 | PHA.CONS_ITS ---
<Kunal Hendrickson - Last Filed: 10/10/17 18:52> Progress Note - Pharmacy Subjective: TCU Admission Objective: Allergies latex Allergy (Verified 08/05/17 21:19) Rash levofloxacin [From Levaquin] Adverse Reaction (Verified 08/05/17 21:19) SPEEDS UP MY HEART AND SHUTS DOWN MY KIDNEYS mushrooms Allergy (Uncoded 08/05/17 21:19) Anaphylaxis STRAWBERRIES Allergy (Uncoded 08/05/17 21:19) Rash Home Medications Medication Instructions Recorded Albuterol Sulfate [Ventolin Hfa] 2 puff INHALATION Q4H PRN PRN 01/08/17 Pantoprazole Sodium [Protonix] 40 mg PO DAILY 02/13/17 Lisinopril [Prinivil] 5 mg PO DAILY 03/06/17 Metoprolol(XL)Succ [Toprol Xl 25 mg PO DAILY 03/06/17 (Beta Vikki)] Acetaminophen [Tylenol Tablet] 650 mg PO Q6H PRN PRN 03/10/17 Dicyclomine HCl [Bentyl] 20 mg PO Q6H PRN PRN 03/10/17 Glimepiride [Amaryl] 1 tab PO DAILY 08/05/17 Multivitamin [Daily Multiple 1 each PO DAILY 08/05/17 Vitamin] Oxybutynin Chloride [Ditropan Xl] 15 mg PO DAILY 08/05/17 Ferrous Sulfate 325 mg PO DAILY #60 tab 08/08/17 Guaifenesin [Mucinex] 1,200 mg PO BID 10/04/17 AcetaAZOLAMIDE [Diamox] 250 mg PO TID 10/09/17 Diltiazem CD [Cardizem CD] 240 mg PO DAILY 10/09/17 Docusate Sodium [Colace] 200 mg PO BID PRN PRN capsule 10/09/17 Furosemide [Lasix] 20 mg PO BIDLX 10/09/17 Polyethylene Glycol 3350 [Miralax] 17 gm PO DAILY 10/09/17 Current Medications Generic Name Dose Route Start Last Admin Trade Name Freq PRN Reason Stop Dose Admin Acetaminophen 1,000 mg 10/09/17 20:53 Tylenol PO Q8H PRN PRN MILD PAIN (1-3/10) Acetazolamide 250 mg 10/09/17 22:00 10/10/17 14:13 Diamox PO 250 mg TID ANIA Administration Albuterol Sulfate 2 puff 10/09/17 17:01 Ventolin Hfa (Sp) INHALATION Q4H PRN PRN SOB &/OR WHEEZING Bisacodyl 10 mg 10/09/17 20:52 Dulcolax PO DAILY PRN Constipation Calamine/Phenol 1 applic 10/09/17 22:00 10/10/17 14:14 Calmoseptine Ointment TOPICAL 1 applicatio TID ANIA Administration Protocol Dicyclomine HCl 20 mg 10/09/17 17:01 Bentyl PO Q6H PRN PRN abd pain Diltiazem HCl 240 mg 10/10/17 06:00 10/10/17 05:46 Cardizem Cd PO 240 mg DAILY ANIA Administration Emollient Ointment 1 applic 10/09/17 17:33 Eucerin Intensive Repair TOPICAL 4X/DAY PRN PRN DRY SKIN Protocol Enoxaparin Sodium 40 mg 10/10/17 06:00 10/10/17 05:50 Lovenox SC 40 mg DAILY@0600 ANIA Administration Furosemide 20 mg 10/10/17 06:00 10/10/17 14:13 Lasix PO 20 mg BIDLX ANIA Administration Glimepiride 2 mg 10/10/17 08:00 10/10/17 08:50 Amaryl PO 2 mg DAILYCM ANIA Administration Guaifenesin 1,200 mg 10/09/17 18:00 10/10/17 17:18 Mucinex PO 1,200 mg BID ANIA Administration Lisinopril 5 mg 10/10/17 06:00 10/10/17 05:46 Zestril PO 5 mg DAILY ANIA Administration Metoprolol Succinate 25 mg 10/10/17 06:00 10/10/17 05:51 Toprol Xl (Beta Vikki) PO 25 mg DAILY ANIA Administration Multivitamins 1 tablet 10/10/17 08:00 10/10/17 08:50 Multivitamin PO 1 tablet DAILY@0800 ANIA Administration Nystatin 1 applic 10/09/17 22:00 10/10/17 05:49 Mycostatin Powder TOPICAL 1 applicatio BID@0600,2200 ANIA Administration Protocol Pantoprazole Sodium 40 mg 10/10/17 06:00 10/10/17 05:46 Protonix PO 40 mg DAILY ANIA Administration Polyethylene Glycol 17 gm 10/10/17 06:00 10/10/17 05:46 Miralax PO 17 gm DAILY ANIA Administration Polysaccharide Iron Complex 150 mg 10/10/17 08:00 10/10/17 08:50 Ferrex 150 PO 150 mg DAILYCM ANIA Administration Senna/Docusate Sodium 1 tablet 10/10/17 06:00 10/10/17 17:19 Senokot-S, Chani-Colace PO 1 tablet BID ANIA Administration Tolterodine Tartrate 4 mg 10/10/17 06:00 10/10/17 05:46 Detrol La PO 4 mg DAILY ANIA Administration Tuberculin PPD 5 tu 10/17/17 10:00 Tubersol, Aplisol, Ppd ID 10/17/17 10:01 X1 ONE Problem List Shortness of breath (Acute) Acute on chronic diastolic heart failure (Acute) Acute bronchitis (Acute) Atrial fibrillation with RVR (Acute) Otitis externa (Acute) Metabolic alkalosis (Acute) Blood in stool (Acute) Morbid obesity (Chronic) Anemia (Chronic) GERD (gastroesophageal reflux disease) (Chronic) Irritable bowel syndrome (Chronic) Overactive bladder (Chronic) Vital Signs Temp Pulse Resp BP Pulse Ox 97.3 F L 66 18 105/52 L 97 10/10/17 15:47 10/10/17 15:47 10/10/17 15:47 10/10/17 15:47 10/10/17 15:47 Oxygen Flow Rate (L/min) 4 Oxygen Delivery Method Nasal Cannula Weight: 154.993 kg Body Mass Index (BMI) 66.7 Sodium 140 mmol/L (136-145) 10/10/17 05:15 Potassium 3.7 mmol/L (3.5-5.1) 10/10/17 05:15 Chloride 94 mmol/L (98-107) L 10/10/17 05:15 Carbon Dioxide 42.0 mmol/L (21.0-32.0) H 10/10/17 05:15 Anion Gap 4 (5-15) L 10/10/17 05:15 BUN 44 mg/dL (7-18) H 10/10/17 05:15 Creatinine 1.08 mg/dL (0.55-1.02) H 10/10/17 05:15 Est GFR (MDRD) Af Amer 68 mL/min (>60) 10/10/17 05:15 Est GFR (MDRD) Non-Af 57 mL/min (>60) L 10/10/17 05:15 BUN/Creatinine Ratio 40.7 RATIO (10-20) H 10/10/17 05:15 Glucose 119 mg/dL (74-106) H 10/10/17 05:15 Assessment/Plan: 1) Pain APAP for mild pain. Continue to monitor daily pain scores, prn medication use. 2) DM2 Glimepiride daily. Avg BGT < 200 mg/dL. Continue to monitor BGT, s/s hyper/ hypoglycemia. 3) Metabolic Alkalosis Acetazolamide 3x daily. Continue to monitor electrolytes. 4) CHF/AFib Diltiazem, lisinopril, metoprolol, furosemide. BP/HR within goal ranges, K wnl, BUN/SCr at baseline. Continue to monitor BP/HR, renal function, electrolytes. 5) DVT PPx Enoxaparin daily. Continue to monitor s/s bleeding/clot. 6) Nutrition Fe, multivitamin. Continue to monitor clinically. 7) GI Pantoprazole daily, dicyclomine prn. Continue to monitor s/s GI distress, prn medication use. 8) Tolterodine daily. Continue to monitor for OAB. Psychotropic Medications: None Unnecessary Medications: None Bowel Regimen: 9) Senna/s, PEG, prn bisacodyl. Continue to monitor prn medication use, for constipation/diarrhea. Date of Note:: 10/10/17 - Provider Comments Provider responsibility: Provider responsible to enter orders to implement recommendations <Jovani Branch Chi - Last Filed: 10/10/17 19:55> Progress Note - Pharmacy Subjective: [] Objective: Allergies latex Allergy (Verified 08/05/17 21:19) Rash levofloxacin [From Levaquin] Adverse Reaction (Verified 08/05/17 21:19) SPEEDS UP MY HEART AND SHUTS DOWN MY KIDNEYS mushrooms Allergy (Uncoded 08/05/17 21:19) Anaphylaxis STRAWBERRIES Allergy (Uncoded 08/05/17 21:19) Rash Home Medications Medication Instructions Recorded Albuterol Sulfate [Ventolin Hfa] 2 puff INHALATION Q4H PRN PRN 01/08/17 Pantoprazole Sodium [Protonix] 40 mg PO DAILY 02/13/17 Lisinopril [Prinivil] 5 mg PO DAILY 03/06/17 Metoprolol(XL)Succ [Toprol Xl 25 mg PO DAILY 03/06/17 (Beta Vikki)] Acetaminophen [Tylenol Tablet] 650 mg PO Q6H PRN PRN 03/10/17 Dicyclomine HCl [Bentyl] 20 mg PO Q6H PRN PRN 03/10/17 Glimepiride [Amaryl] 1 tab PO DAILY 08/05/17 Multivitamin [Daily Multiple 1 each PO DAILY 08/05/17 Vitamin] Oxybutynin Chloride [Ditropan Xl] 15 mg PO DAILY 08/05/17 Ferrous Sulfate 325 mg PO DAILY #60 tab 08/08/17 Guaifenesin [Mucinex] 1,200 mg PO BID 10/04/17 AcetaAZOLAMIDE [Diamox] 250 mg PO TID 10/09/17 Diltiazem CD [Cardizem CD] 240 mg PO DAILY 10/09/17 Docusate Sodium [Colace] 200 mg PO BID PRN PRN capsule 10/09/17 Furosemide [Lasix] 20 mg PO BIDLX 10/09/17 Polyethylene Glycol 3350 [Miralax] 17 gm PO DAILY 10/09/17 Current Medications Generic Name Dose Route Start Last Admin Trade Name Freq PRN Reason Stop Dose Admin Acetaminophen 1,000 mg 10/09/17 20:53 Tylenol PO Q8H PRN PRN MILD PAIN (1-3/10) Acetazolamide 250 mg 10/09/17 22:00 10/10/17 14:13 Diamox PO 250 mg TID [facility] Administration Albuterol Sulfate 2 puff 10/09/17 17:01 Ventolin Hfa (Sp) INHALATION Q4H PRN PRN SOB &/OR WHEEZING Bisacodyl 10 mg 10/09/17 20:52 Dulcolax PO DAILY PRN Constipation Calamine/Phenol 1 applic 10/09/17 22:00 10/10/17 14:14 Calmoseptine Ointment TOPICAL 1 applicatio TID [facility] Administration Protocol Dicyclomine HCl 20 mg 10/09/17 17:01 Bentyl PO Q6H PRN PRN abd pain Diltiazem HCl 240 mg 10/10/17 06:00 10/10/17 05:46 Cardizem Cd PO 240 mg DAILY ANIA Administration Emollient Ointment 1 applic 10/09/17 17:33 Eucerin Intensive Repair TOPICAL 4X/DAY PRN PRN DRY SKIN Protocol Enoxaparin Sodium 40 mg 10/10/17 06:00 10/10/17 05:50 Lovenox SC 40 mg DAILY@0600 ANIA Administration Furosemide 20 mg 10/10/17 06:00 10/10/17 14:13 Lasix PO 20 mg BIDLX ANIA Administration Glimepiride 2 mg 10/10/17 08:00 10/10/17 08:50 Amaryl PO 2 mg DAILYCM ANIA Administration Guaifenesin 1,200 mg 10/09/17 18:00 10/10/17 17:18 Mucinex PO 1,200 mg BID [facility] Administration Lisinopril 5 mg 10/10/17 06:00 10/10/17 05:46 Zestril PO 5 mg DAILY ANIA Administration Metoprolol Succinate 25 mg 10/10/17 06:00 10/10/17 05:51 Toprol Xl (Beta Vikki) PO 25 mg DAILY ANIA Administration Multivitamins 1 tablet 10/10/17 08:00 10/10/17 08:50 Multivitamin PO 1 tablet DAILY@0800 ANIA Administration Nystatin 1 applic 10/09/17 22:00 10/10/17 05:49 Mycostatin Powder TOPICAL 1 applicatio BID@0600,2200 [facility] Administration Protocol Pantoprazole Sodium 40 mg 10/10/17 06:00 10/10/17 05:46 Protonix PO 40 mg DAILY ANIA Administration Polyethylene Glycol 17 gm 10/10/17 06:00 10/10/17 05:46 Miralax PO 17 gm DAILY ANIA Administration Polysaccharide Iron Complex 150 mg 10/10/17 08:00 10/10/17 08:50 Ferrex 150 PO 150 mg DAILYCM ANIA Administration Senna/Docusate Sodium 1 tablet 10/10/17 06:00 10/10/17 17:19 Senokot-S, Chani-Colace PO 1 tablet BID ANIA Administration Tolterodine Tartrate 4 mg 10/10/17 06:00 10/10/17 05:46 Detrol La PO 4 mg DAILY ANIA Administration Tuberculin PPD 5 tu 10/17/17 10:00 Tubersol, Aplisol, Ppd ID 10/17/17 10:01 X1 ONE Problem List Shortness of breath (Acute) Acute on chronic diastolic heart failure (Acute) Acute bronchitis (Acute) Atrial fibrillation with RVR (Acute) Otitis externa (Acute) Metabolic alkalosis (Acute) Blood in stool (Acute) Morbid obesity (Chronic) Anemia (Chronic) GERD (gastroesophageal reflux disease) (Chronic) Irritable bowel syndrome (Chronic) Overactive bladder (Chronic) Vital Signs Temp Pulse Resp BP Pulse Ox 97.3 F L 66 18 105/52 L 97 10/10/17 15:47 10/10/17 15:47 10/10/17 15:47 10/10/17 15:47 10/10/17 15:47 Oxygen Flow Rate (L/min) 4 Oxygen Delivery Method Nasal Cannula Weight: 154.993 kg Body Mass Index (BMI) 66.7 Sodium 140 mmol/L (136-145) 10/10/17 05:15 Potassium 3.7 mmol/L (3.5-5.1) 10/10/17 05:15 Chloride 94 mmol/L (98-107) L 10/10/17 05:15 Carbon Dioxide 42.0 mmol/L (21.0-32.0) H 10/10/17 05:15 Anion Gap 4 (5-15) L 10/10/17 05:15 BUN 44 mg/dL (7-18) H 10/10/17 05:15 Creatinine 1.08 mg/dL (0.55-1.02) H 10/10/17 05:15 Est GFR (MDRD) Af Amer 68 mL/min (>60) 10/10/17 05:15 Est GFR (MDRD) Non-Af 57 mL/min (>60) L 10/10/17 05:15 BUN/Creatinine Ratio 40.7 RATIO (10-20) H 10/10/17 05:15 Glucose 119 mg/dL (74-106) H 10/10/17 05:15 Assessment/Plan: Psychotropic Medications: Unnecessary Medications: Bowel Regimen: - Provider Comments Provider responsibility: Provider responsible to enter orders to implement recommendations Provider Comments to Recommendations by Pharmacy: Agree
[2017-10-10 20:45] LABS: Bedside Glucose 149 mg/dL (70-110)
[2017-10-10 21:31] LABS: Bedside Glucose 158 mg/dL (70-110)
[2017-10-11] MEDS: Pantoprazole Sodium 40 MG Tablet PO (06:19)
[2017-10-11] MEDS: Lisinopril 5 MG Tablet PO (06:19)
[2017-10-11 06:20] VITALS: BP 114/74; PULSE 69
[2017-10-11] MEDS: dilTIAZem CD 240 MG Capsule PO (06:20)
[2017-10-11] MEDS: guaiFENesin 1,200 MG Tablet 1200 MG PO ×2 (06:20→17:35)
[2017-10-11] MEDS: Tolterodine Tartrate 4 MG CAP.SA PO (06:20)
[2017-10-11] MEDS: Metoprolol(XL)Succ 25 MG Tablet PO (06:20)
[2017-10-11] MEDS: Furosemide 20 MG Tablet PO ×2 (06:20→13:17)
[2017-10-11] MEDS: AcetaZOLAMIDE 250 MG Tablet PO ×3 (06:21→20:25)
[2017-10-11] MEDS: Enoxaparin 40 MG/0.4 ML Syringe SC (06:23)
[2017-10-11] MEDS: Nystatin Powder 15gm Bottle 1 APPLIC TOPICAL ×2 (06:23→20:25)
[2017-10-11] MEDS: Menthol/Lanolin/Calamine/Znox 113 GM Tube 1 APPLIC TOPICAL ×3 (06:24→20:27)
[2017-10-11 06:51] LABS: Bedside Glucose 114 mg/dL (70-110)
[2017-10-11 07:20] VITALS: O2SAT 93
[2017-10-11] MEDS: Iron Polysaccharide Complex 150 MG CAPSULE PO (09:13)
[2017-10-11] MEDS: Glimepiride 2 MG Tablet PO (09:13)
[2017-10-11] MEDS: Multivitamins,Therapeutic Tablet 1 TABLET PO (09:13)
[2017-10-11 11:11] LABS: Bedside Glucose 112 mg/dL (70-110)
[2017-10-11 14:07] VITALS: BP 97/58; PULSE 64; RESP 16; TEMP 36; O2SAT 98
[2017-10-11 16:51] LABS: Bedside Glucose 156 mg/dL (70-110)
[2017-10-11 20:38] VITALS: PULSE 63; RESP 15; O2SAT 98
[2017-10-11 21:06] LABS: Bedside Glucose 136 mg/dL (70-110)
[2017-10-12 06:27] VITALS: BP 108/52; PULSE 68
[2017-10-12] MEDS: Metoprolol(XL)Succ 25 MG Tablet PO (06:27)
[2017-10-12] MEDS: Furosemide 20 MG Tablet PO ×2 (06:27→12:59)
[2017-10-12] MEDS: Tolterodine Tartrate 4 MG CAP.SA PO (06:27)
[2017-10-12] MEDS: AcetaZOLAMIDE 250 MG Tablet PO ×3 (06:27→21:44)
[2017-10-12] MEDS: dilTIAZem CD 240 MG Capsule PO (06:27)
[2017-10-12] MEDS: guaiFENesin 1,200 MG Tablet 1200 MG PO ×2 (06:27→16:01)
[2017-10-12] MEDS: Enoxaparin 40 MG/0.4 ML Syringe SC (06:31)
[2017-10-12] MEDS: Nystatin Powder 15gm Bottle 1 APPLIC TOPICAL ×2 (06:31→21:43)
[2017-10-12] MEDS: Lisinopril 5 MG Tablet PO (06:32)
[2017-10-12] MEDS: Pantoprazole Sodium 40 MG Tablet PO (06:32)
[2017-10-12] MEDS: Menthol/Lanolin/Calamine/Znox 113 GM Tube 1 APPLIC TOPICAL ×3 (06:38→21:43)
[2017-10-12 06:45] LABS: Bedside Glucose 124 mg/dL (70-110)
[2017-10-12 07:05] VITALS: O2SAT 96
[2017-10-12] MEDS: Multivitamins,Therapeutic Tablet 1 TABLET PO (08:50)
[2017-10-12] MEDS: Iron Polysaccharide Complex 150 MG CAPSULE PO (08:50)
[2017-10-12] MEDS: Glimepiride 2 MG Tablet PO (08:50)
[2017-10-12 11:46] LABS: Bedside Glucose 134 mg/dL (70-110)
[2017-10-12 15:22] VITALS: BP 95/53; PULSE 55; RESP 18; TEMP 36.3; O2SAT 92
[2017-10-12 16:56] LABS: Bedside Glucose 142 mg/dL (70-110)
[2017-10-12 21:11] LABS: Bedside Glucose 135 mg/dL (70-110)
[2017-10-12 21:47] VITALS: PULSE 55; RESP 18; O2SAT 92
--- NOTE | 2017-10-12 22:41 | NURSING ---
Addendum entered by Leighann Hanley 10/12/17 22:43: DIRECTOR SEARCH found Sprite and Doritos and candy bars in a bag that patients brought in. Pt is on a fluid restriction, Sprite was removed from room and put in refridgerator. We need to let know that he cannot be bring patient foods that a diabetic is not supposed to have and have him take Doritos and candy bars home. Original Note: DIRECTOR SEARCH found Sprite and Doritos and candy bars in a bag that patients brought in. Pt is on a fluid restriction, Sprite was removed from room and put in refridgerator. We need to let know that he cannot be bring patiet
[2017-10-13 06:36] LABS: Bedside Glucose 107 mg/dL (70-110)
[2017-10-13] MEDS: Tolterodine Tartrate 4 MG CAP.SA PO (06:48)
[2017-10-13] MEDS: Enoxaparin 40 MG/0.4 ML Syringe SC (06:48)
[2017-10-13] MEDS: Furosemide 20 MG Tablet PO ×2 (06:48→12:42)
[2017-10-13] MEDS: AcetaZOLAMIDE 250 MG Tablet PO ×3 (06:48→21:01)
[2017-10-13] MEDS: guaiFENesin 1,200 MG Tablet 1200 MG PO ×2 (06:48→16:25)
[2017-10-13] MEDS: dilTIAZem CD 240 MG Capsule PO (06:48)
[2017-10-13] MEDS: Lisinopril 5 MG Tablet PO (06:48)
[2017-10-13] MEDS: Pantoprazole Sodium 40 MG Tablet PO (06:48)
[2017-10-13] MEDS: Menthol/Lanolin/Calamine/Znox 113 GM Tube 1 APPLIC TOPICAL ×3 (06:50→21:02)
[2017-10-13] MEDS: Nystatin Powder 15gm Bottle 1 APPLIC TOPICAL ×2 (06:50→21:01)
[2017-10-13 06:52] VITALS: BP 144/66; PULSE 78
[2017-10-13] MEDS: Metoprolol(XL)Succ 25 MG Tablet PO (06:52)
[2017-10-13 07:15] VITALS: O2SAT 93
[2017-10-13] MEDS: Iron Polysaccharide Complex 150 MG CAPSULE PO (08:46)
[2017-10-13] MEDS: Multivitamins,Therapeutic Tablet 1 TABLET PO (08:46)
[2017-10-13] MEDS: Glimepiride 2 MG Tablet PO (08:46)
[2017-10-13 11:06] LABS: Bedside Glucose 136 mg/dL (70-110)
[2017-10-13 15:52] VITALS: BP 111/50; PULSE 69; RESP 20; TEMP 36.3; O2SAT 94
[2017-10-13 17:06] LABS: Bedside Glucose 117 mg/dL (70-110)
[2017-10-13 21:40] LABS: Bedside Glucose 140 mg/dL (70-110)
[2017-10-13 21:46] VITALS: O2SAT 98
[2017-10-14 05:37] VITALS: BP 115/62; PULSE 65
[2017-10-14] MEDS: AcetaZOLAMIDE 250 MG Tablet PO ×3 (05:37→19:49)
[2017-10-14] MEDS: dilTIAZem CD 240 MG Capsule PO (05:37)
[2017-10-14] MEDS: Furosemide 20 MG Tablet PO ×2 (05:37→13:34)
[2017-10-14] MEDS: guaiFENesin 1,200 MG Tablet 1200 MG PO ×2 (05:37→17:05)
[2017-10-14] MEDS: Enoxaparin 40 MG/0.4 ML Syringe SC (05:37)
[2017-10-14] MEDS: Tolterodine Tartrate 4 MG CAP.SA PO (05:37)
[2017-10-14] MEDS: Lisinopril 5 MG Tablet PO (05:37)
[2017-10-14] MEDS: Metoprolol(XL)Succ 25 MG Tablet PO (05:37)
[2017-10-14] MEDS: Pantoprazole Sodium 40 MG Tablet PO (05:37)
[2017-10-14] MEDS: Nystatin Powder 15gm Bottle 1 APPLIC TOPICAL ×3 (05:40→19:50)
[2017-10-14] MEDS: Menthol/Lanolin/Calamine/Znox 113 GM Tube 1 APPLIC TOPICAL ×3 (05:41→19:50)
[2017-10-14 06:40] VITALS: O2SAT 96
[2017-10-14 06:46] LABS: Bedside Glucose 109 mg/dL (70-110)
[2017-10-14] MEDS: Iron Polysaccharide Complex 150 MG CAPSULE PO (08:40)
[2017-10-14] MEDS: Glimepiride 2 MG Tablet PO (08:40)
[2017-10-14] MEDS: Multivitamins,Therapeutic Tablet 1 TABLET PO (08:40)
--- NOTE | 2017-10-14 11:33 | CASEMGMT ---
Brief interview for mental status (BIMS) and resident mood interview completed on this day. BIMS score 15/15. PHQ-9 score 12/03.
[2017-10-14 11:55] LABS: Bedside Glucose 143 mg/dL (70-110)
[2017-10-14 14:19] VITALS: BP 113/55; PULSE 54; RESP 16; TEMP 37; O2SAT 96
[2017-10-14 17:00] LABS: Bedside Glucose 86 mg/dL (70-110)
[2017-10-14 19:51] VITALS: O2SAT 98
[2017-10-14 22:01] LABS: Bedside Glucose 125 mg/dL (70-110)
--- NOTE | 2017-10-14 23:20 | NURSING ---
This nurse in with CLINICAL DOCUMENTATION MANAGER to assist pt off of bedpan. Pts bottom extremely red. Abraham was applied and a pillow was placed under the Rt side of the pt. This nurse explained in thorough detail the importance of shifting around in bed and not lying in the same position for long periods of time. Pt stated Im use to it. Pt then closed her eyes and would not answer the question if she was comfortable or if there was anything else the staff could assist her with. It was then explained if it becomes uncomfortable the pillow could be removed. Pt lying in bed, eyes closed and call light in reach.
[2017-10-15] MEDS: Enoxaparin 40 MG/0.4 ML Syringe SC (05:55)
[2017-10-15] MEDS: Pantoprazole Sodium 40 MG Tablet PO (05:55)
[2017-10-15] MEDS: Tolterodine Tartrate 4 MG CAP.SA PO (05:55)
[2017-10-15] MEDS: Lisinopril 5 MG Tablet PO (05:55)
[2017-10-15] MEDS: AcetaZOLAMIDE 250 MG Tablet PO ×3 (05:55→20:16)
[2017-10-15 05:56] VITALS: BP 115/59; PULSE 70
[2017-10-15] MEDS: guaiFENesin 1,200 MG Tablet 1200 MG PO ×2 (05:56→17:40)
[2017-10-15] MEDS: Furosemide 20 MG Tablet PO ×2 (05:56→13:56)
[2017-10-15] MEDS: dilTIAZem CD 240 MG Capsule PO (05:56)
[2017-10-15] MEDS: Metoprolol(XL)Succ 25 MG Tablet PO (05:56)
[2017-10-15] MEDS: Nystatin Powder 15gm Bottle 1 APPLIC TOPICAL ×2 (05:56→20:17)
[2017-10-15] MEDS: Menthol/Lanolin/Calamine/Znox 113 GM Tube 1 APPLIC TOPICAL ×2 (05:58→20:17)
[2017-10-15 06:01] VITALS: O2SAT 97
[2017-10-15 06:35] LABS: Bedside Glucose 128 mg/dL (70-110)
--- NOTE | 2017-10-15 07:33 | NURSING ---
Pt refusing MARBIN wraps, pt noncompliant with many things like fluid restriction, diet, turning. Will continue to encourage.
[2017-10-15 07:50] VITALS: O2SAT 99
[2017-10-15] MEDS: Iron Polysaccharide Complex 150 MG CAPSULE PO (08:10)
[2017-10-15] MEDS: Glimepiride 2 MG Tablet PO (08:10)
[2017-10-15] MEDS: Multivitamins,Therapeutic Tablet 1 TABLET PO (08:10)
--- NOTE | 2017-10-15 10:30 | CASEMGMT ---
Plan of care meeting held. Resident present, no support person present at this time. This public health social worker to contact resident family later this day to give an update on plan of care meeting. Resident plans to discharge home with spouse at time of discharge. No discharge date set at this time. Resident plans to continue with further care and treatment on the Transitional Care Unit. Support given. Will continue to follow. Marion GARCIA, CUSTOMER SUCCESS DIRECTOR
[2017-10-15 11:46] LABS: Bedside Glucose 152 mg/dL (70-110)
--- NOTE | 2017-10-15 14:50 | CASEMGMT ---
Social Work This social media executive updating resident family on plan of care meeting and treatment plan. Resident spouse, Ricco agreeable to plan of care and continuing with current plan at this time. Ricco does work and is unable to provide 24hr care for resident within the home. Resident plans to discharge home with spouse. Support given. Will continue to follow. Marion GARCIA, MANAGER WILLOW
[2017-10-15 15:38] VITALS: BP 111/61; PULSE 63; RESP 18; TEMP 36.4; O2SAT 98
[2017-10-15 16:51] LABS: Bedside Glucose 125 mg/dL (70-110)
[2017-10-15 21:06] LABS: Bedside Glucose 153 mg/dL (70-110)
[2017-10-16] MEDS: Tolterodine Tartrate 4 MG CAP.SA PO (06:19)
[2017-10-16 06:20] VITALS: BP 142/58; PULSE 66
[2017-10-16] MEDS: AcetaZOLAMIDE 250 MG Tablet PO ×3 (06:20→19:56)
[2017-10-16] MEDS: Lisinopril 5 MG Tablet PO (06:20)
[2017-10-16] MEDS: Furosemide 20 MG Tablet PO ×2 (06:20→14:46)
[2017-10-16] MEDS: Metoprolol(XL)Succ 25 MG Tablet PO (06:20)
[2017-10-16] MEDS: dilTIAZem CD 240 MG Capsule PO (06:20)
[2017-10-16] MEDS: Pantoprazole Sodium 40 MG Tablet PO (06:20)
[2017-10-16] MEDS: guaiFENesin 1,200 MG Tablet 1200 MG PO ×2 (06:21→17:03)
[2017-10-16] MEDS: Enoxaparin 40 MG/0.4 ML Syringe SC (06:22)
[2017-10-16 06:25] LABS: Bedside Glucose 108 mg/dL (70-110)
[2017-10-16] MEDS: Iron Polysaccharide Complex 150 MG CAPSULE PO (08:44)
[2017-10-16] MEDS: Glimepiride 2 MG Tablet PO (08:44)
[2017-10-16] MEDS: Multivitamins,Therapeutic Tablet 1 TABLET PO (08:44)
[2017-10-16 11:15] LABS: Bedside Glucose 142 mg/dL (70-110)
[2017-10-16] MEDS: Menthol/Lanolin/Calamine/Znox 113 GM Tube 1 APPLIC TOPICAL ×2 (14:48→19:57)
[2017-10-16 15:12] VITALS: BP 97/55; PULSE 72; RESP 18; TEMP 37.1; O2SAT 91
[2017-10-16 16:56] LABS: Bedside Glucose 109 mg/dL (70-110)
[2017-10-16] MEDS: Nystatin Powder 15gm Bottle 1 APPLIC TOPICAL (19:56)
[2017-10-16 21:31] LABS: Bedside Glucose 114 mg/dL (70-110)
[2017-10-17] MEDS: Furosemide 20 MG Tablet PO ×2 (05:00→13:30)
[2017-10-17] MEDS: Pantoprazole Sodium 40 MG Tablet PO (05:00)
[2017-10-17] MEDS: AcetaZOLAMIDE 250 MG Tablet PO ×3 (05:00→20:05)
[2017-10-17] MEDS: Enoxaparin 40 MG/0.4 ML Syringe SC (05:00)
[2017-10-17] MEDS: Lisinopril 5 MG Tablet PO (05:00)
[2017-10-17] MEDS: Tolterodine Tartrate 4 MG CAP.SA PO (05:00)
[2017-10-17] MEDS: dilTIAZem CD 240 MG Capsule PO (05:00)
[2017-10-17] MEDS: guaiFENesin 1,200 MG Tablet 1200 MG PO ×2 (05:00→17:06)
[2017-10-17 05:01] VITALS: BP 127/56; PULSE 101
[2017-10-17] MEDS: Metoprolol(XL)Succ 25 MG Tablet PO (05:01)
[2017-10-17] MEDS: Nystatin Powder 15gm Bottle 1 APPLIC TOPICAL ×2 (05:01→20:05)
[2017-10-17] MEDS: Menthol/Lanolin/Calamine/Znox 113 GM Tube 1 APPLIC TOPICAL ×3 (05:05→20:06)
[2017-10-17 06:09] LABS: Absolute Lymphocyte Count 1.27 X10^3/ul (0.83-4.51); Absolute Neutrophil Count 4.2 X10^3/uL (2.0-7.7); Basophil# 0.02 X10^3/uL; Basophil% 0.3 % (0-1); Eosinophil# 0.31 X10^3/uL; Eosinophils% 4.9 % (0-5); Hematocrit 32.2 % (37-47); Hemoglobin 8.9 g/dl (12.0-15.0); Lymphocyte # 1.27 X10^3/ul (4.0); Lymphocyte % 19.9 % (19-41); Mean Corp Hgb Conc 27.6 g/gl (32-36); Mean Corpuscular Hgb 25.6 pg (27.0-32.0); Mean Corpuscular Volume 92.8 fL (81-99); Mean Platelet Vol. 9.6 fl (6.2-12.0); Monocyte# 0.56 X10^3/uL; Monocyte% 8.8 % (0-10); Neutrophil # 4.18 X10^3/uL (2.7-7.7); Neutrophil % 65.5 % (47-70); Platelet Count 249 K/mm3 (150-450); RBC Distribution Width CV 16.4 % (11.6-14.6); RBC Distribution Width SD 53.7 fl (35.1-43.9); Red Blood Count 3.47 M/mm3 (4.2-5.4); White Blood Count 6.4 K/mm3 (4.4-11.0)
[2017-10-17 06:24] LABS: POSITIVE COUNT NO; POSITIVE DIFFERENTIAL NO; POSITIVE MORPHOLOGY NO
[2017-10-17 06:28] LABS: Anion Gap 6 (5-15); BUN 27 mg/dL (7-18); BUN/Creat Ratio 24.8 RATIO (10-20); Calcium,Total 8.5 mg/dL (8.5-10.1); Chloride 107 mmol/L (98-107); Creatinine, Serum 1.09 mg/dL (0.55-1.02); EST Glomerular Filtration Rate 56 mL/min (>60); Est Glom Filt Rate - Afr Amer 68 mL/min (>60); Estimated Creatinine Clearance 43.37 ml/min; Glucose 94 mg/dL (74-106); Potassium 4.3 mmol/L (3.5-5.1); Sodium Level 143 mmol/L (136-145)
[2017-10-17 06:45] LABS: Bedside Glucose 102 mg/dL (70-110)
[2017-10-17] MEDS: Multivitamins,Therapeutic Tablet 1 TABLET PO (08:09)
[2017-10-17] MEDS: Glimepiride 2 MG Tablet PO (08:09)
[2017-10-17] MEDS: Iron Polysaccharide Complex 150 MG CAPSULE PO (08:09)
[2017-10-17] MEDS: Tuberculin,Purif.prot.deriv. 50 TU/ML Vial 5 ML ID (09:10)
--- NOTE | 2017-10-17 09:37 | NURSING ---
Dr. Branch reviewed AM labs, NNO
[2017-10-17 11:36] LABS: Bedside Glucose 169 mg/dL (70-110)
[2017-10-17 15:37] VITALS: BP 112/59; PULSE 69; RESP 18; TEMP 36.4; O2SAT 92
[2017-10-17] MEDS: Acetaminophen 500 MG Tablet 1000 MG PO (16:23)
[2017-10-17 16:50] LABS: Bedside Glucose 133 mg/dL (70-110)
[2017-10-17 21:15] LABS: Bedside Glucose 153 mg/dL (70-110)
[2017-10-18] MEDS: Enoxaparin 40 MG/0.4 ML Syringe SC (06:36)
[2017-10-18 06:37] VITALS: BP 114/67; PULSE 68
[2017-10-18] MEDS: dilTIAZem CD 240 MG Capsule PO (06:37)
[2017-10-18] MEDS: AcetaZOLAMIDE 250 MG Tablet PO ×3 (06:37→21:26)
[2017-10-18] MEDS: guaiFENesin 1,200 MG Tablet 1200 MG PO ×2 (06:37→16:37)
[2017-10-18] MEDS: Furosemide 20 MG Tablet PO ×2 (06:37→13:43)
[2017-10-18] MEDS: Lisinopril 5 MG Tablet PO (06:37)
[2017-10-18] MEDS: Tolterodine Tartrate 4 MG CAP.SA PO (06:37)
[2017-10-18] MEDS: Pantoprazole Sodium 40 MG Tablet PO (06:37)
[2017-10-18] MEDS: Metoprolol(XL)Succ 25 MG Tablet PO (06:37)
[2017-10-18] MEDS: Menthol/Lanolin/Calamine/Znox 113 GM Tube 1 APPLIC TOPICAL ×3 (06:38→21:27)
[2017-10-18] MEDS: Nystatin Powder 15gm Bottle 1 APPLIC TOPICAL ×2 (06:43→21:26)
[2017-10-18 06:56] LABS: Bedside Glucose 114 mg/dL (70-110)
[2017-10-18 07:44] VITALS: O2SAT 92
[2017-10-18] MEDS: Multivitamins,Therapeutic Tablet 1 TABLET PO (08:12)
[2017-10-18] MEDS: Glimepiride 2 MG Tablet PO (08:12)
[2017-10-18] MEDS: Iron Polysaccharide Complex 150 MG CAPSULE PO (08:12)
[2017-10-18 11:26] LABS: Bedside Glucose 127 mg/dL (70-110)
[2017-10-18 15:26] VITALS: BP 104/53; PULSE 75; RESP 18; TEMP 36.6; O2SAT 89
[2017-10-18 16:55] LABS: Bedside Glucose 137 mg/dL (70-110)
[2017-10-18 21:00] VITALS: O2SAT 95
[2017-10-18 21:06] LABS: Bedside Glucose 111 mg/dL (70-110)
[2017-10-19 06:21] VITALS: BP 117/62; PULSE 69
[2017-10-19] MEDS: Metoprolol(XL)Succ 25 MG Tablet PO (06:21)
[2017-10-19] MEDS: Furosemide 20 MG Tablet PO ×2 (06:21→13:46)
[2017-10-19] MEDS: dilTIAZem CD 240 MG Capsule PO (06:21)
[2017-10-19] MEDS: Lisinopril 5 MG Tablet PO (06:21)
[2017-10-19] MEDS: Pantoprazole Sodium 40 MG Tablet PO (06:21)
[2017-10-19] MEDS: Enoxaparin 40 MG/0.4 ML Syringe SC (06:21)
[2017-10-19] MEDS: Tolterodine Tartrate 4 MG CAP.SA PO (06:21)
[2017-10-19] MEDS: AcetaZOLAMIDE 250 MG Tablet PO ×3 (06:21→19:43)
[2017-10-19] MEDS: guaiFENesin 1,200 MG Tablet 1200 MG PO ×2 (06:21→16:46)
[2017-10-19] MEDS: Nystatin Powder 15gm Bottle 1 APPLIC TOPICAL ×2 (06:22→19:43)
[2017-10-19] MEDS: Menthol/Lanolin/Calamine/Znox 113 GM Tube 1 APPLIC TOPICAL ×3 (06:24→19:47)
[2017-10-19 07:01] LABS: Bedside Glucose 97 mg/dL (70-110)
--- NOTE | 2017-10-19 07:24 | PCA ---
when res. was on bedpan staff offered to reposition her off of back side, res refused to be turned.
--- NOTE | 2017-10-19 07:46 | NURSING ---
pt refusing MARBIN wraps this AM states they dont work. Pt also refusing to be repositioned throughout the night.
[2017-10-19 07:53] VITALS: O2SAT 95
[2017-10-19] MEDS: Iron Polysaccharide Complex 150 MG CAPSULE PO (08:50)
[2017-10-19] MEDS: Multivitamins,Therapeutic Tablet 1 TABLET PO (08:50)
[2017-10-19] MEDS: Glimepiride 2 MG Tablet PO (08:50)
[2017-10-19 11:21] LABS: Bedside Glucose 131 mg/dL (70-110)
[2017-10-19] MEDS: Acetaminophen 500 MG Tablet 1000 MG PO (13:49)
[2017-10-19 15:18] VITALS: BP 104/56; PULSE 60; RESP 18; TEMP 36.9; O2SAT 92
[2017-10-19 17:01] LABS: Bedside Glucose 150 mg/dL (70-110)
--- NOTE | 2017-10-19 19:32 | NURSING ---
Pt noted to have a line of bright red blood in toilet after trying to have a BM. Pt stated this happens sometimes d/t having internal hemorrhoids. Will continue to monitor.
[2017-10-19 20:13] VITALS: O2SAT 97
[2017-10-19 20:56] LABS: Bedside Glucose 145 mg/dL (70-110)
[2017-10-20 05:46] VITALS: BP 116/50; PULSE 65
[2017-10-20] MEDS: Metoprolol(XL)Succ 25 MG Tablet PO (05:46)
[2017-10-20] MEDS: Pantoprazole Sodium 40 MG Tablet PO (05:46)
[2017-10-20] MEDS: AcetaZOLAMIDE 250 MG Tablet PO ×3 (05:46→19:51)
[2017-10-20] MEDS: Furosemide 20 MG Tablet PO ×2 (05:46→13:04)
[2017-10-20] MEDS: dilTIAZem CD 240 MG Capsule PO (05:46)
[2017-10-20] MEDS: Enoxaparin 40 MG/0.4 ML Syringe SC (05:46)
[2017-10-20] MEDS: guaiFENesin 1,200 MG Tablet 1200 MG PO ×2 (05:46→16:48)
[2017-10-20] MEDS: Lisinopril 5 MG Tablet PO (05:46)
[2017-10-20] MEDS: Tolterodine Tartrate 4 MG CAP.SA PO (05:46)
[2017-10-20] MEDS: Menthol/Lanolin/Calamine/Znox 113 GM Tube 1 APPLIC TOPICAL ×3 (05:49→19:51)
[2017-10-20] MEDS: Nystatin Powder 15gm Bottle 1 APPLIC TOPICAL ×2 (05:50→19:51)
[2017-10-20 06:46] LABS: Bedside Glucose 107 mg/dL (70-110)
--- NOTE | 2017-10-20 07:17 | NURSING ---
Pt refusing MARBIN wraps this AM stating they do not help and they make things worse. This nurse explained the importance of them but pt still refusing.
[2017-10-20] MEDS: Glimepiride 2 MG Tablet PO (08:00)
[2017-10-20] MEDS: Multivitamins,Therapeutic Tablet 1 TABLET PO (08:00)
[2017-10-20] MEDS: Iron Polysaccharide Complex 150 MG CAPSULE PO (08:00)
[2017-10-20 11:31] LABS: Bedside Glucose 160 mg/dL (70-110)
[2017-10-20] MEDS: Acetaminophen 500 MG Tablet 1000 MG PO (13:06)
[2017-10-20 15:10] VITALS: BP 101/63; PULSE 82; RESP 18; TEMP 36.6; O2SAT 95
[2017-10-20 17:01] LABS: Bedside Glucose 108 mg/dL (70-110)
[2017-10-20 19:35] VITALS: PULSE 74; O2SAT 96
[2017-10-20 21:21] LABS: Bedside Glucose 144 mg/dL (70-110)
[2017-10-21] MEDS: Tolterodine Tartrate 4 MG CAP.SA PO (06:21)
[2017-10-21] MEDS: guaiFENesin 1,200 MG Tablet 1200 MG PO ×2 (06:21→17:32)
[2017-10-21] MEDS: Lisinopril 5 MG Tablet PO (06:21)
[2017-10-21] MEDS: Pantoprazole Sodium 40 MG Tablet PO (06:21)
[2017-10-21] MEDS: AcetaZOLAMIDE 250 MG Tablet PO ×3 (06:21→21:28)
[2017-10-21] MEDS: Furosemide 20 MG Tablet PO ×2 (06:21→14:01)
[2017-10-21] MEDS: dilTIAZem CD 240 MG Capsule PO (06:21)
[2017-10-21 06:22] VITALS: BP 115/59; PULSE 60
[2017-10-21] MEDS: Metoprolol(XL)Succ 25 MG Tablet PO (06:22)
[2017-10-21] MEDS: Enoxaparin 40 MG/0.4 ML Syringe SC (06:22)
[2017-10-21] MEDS: Nystatin Powder 15gm Bottle 1 APPLIC TOPICAL ×2 (06:23→21:29)
[2017-10-21] MEDS: Menthol/Lanolin/Calamine/Znox 113 GM Tube 1 APPLIC TOPICAL ×3 (06:24→21:28)
[2017-10-21 07:01] LABS: Bedside Glucose 89 mg/dL (70-110)
[2017-10-21] MEDS: Iron Polysaccharide Complex 150 MG CAPSULE PO (09:22)
[2017-10-21] MEDS: Glimepiride 2 MG Tablet PO (09:22)
[2017-10-21] MEDS: Multivitamins,Therapeutic Tablet 1 TABLET PO (09:22)
[2017-10-21] MEDS: Acetaminophen 500 MG Tablet 1000 MG PO (10:54)
[2017-10-21 11:36] LABS: Bedside Glucose 161 mg/dL (70-110)
[2017-10-21 13:35] VITALS: O2SAT 93
[2017-10-21 15:37] VITALS: BP 110/67; PULSE 66; RESP 181; TEMP 36.9; O2SAT 90
--- NOTE | 2017-10-21 16:06 | CASEMGMT ---
Brief interview for mental status (BIMS) and resident mood interview (PHQ-9) completed on this day. BIMS score 15/15. PHQ-9 score 10/27
--- NOTE | 2017-10-21 16:08 | CASEMGMT ---
Social Work Spoke with resident in room. This social work program coordinator communicating that discharge date has been set for 10/25/17. Resident is agreeable to discharge date and plans to discharge home with spouse. This social work program coordinator communicating that physical and occupational therapy are recommending for resident to continue with services within the home. Resident is not agreeable to recommendation. Resident aware that home therapy could help to motivate and hold resident accountable to avoid further inpatient stays, resident declining home health services. Resident reporting to have a walker, bedside commode, and hospital bed at home. Resident declining for this social work program coordinator to contact resident spouse in regards to discharge date and plan. Resident reporting to plan to speak with spouse about discharge date. Resident spouse to provide transportation home for resident per resident. Support given. Proposed discharge date: 10/25/17. PLAN: Discharge home with spouse. Marion GARCIA, YARD SUPERVISOR
[2017-10-21 17:00] LABS: Bedside Glucose 148 mg/dL (70-110)
[2017-10-21 21:31] LABS: Bedside Glucose 105 mg/dL (70-110)
--- NOTE | 2017-10-21 22:19 | PCM.DC ---
- Discharge Diagnoses Current Active Problems: Current Active and Chronic Problems Shortness of breath (Acute) Acute on chronic diastolic heart failure (Acute) Acute bronchitis (Acute) Atrial fibrillation with RVR (Acute) Otitis externa (Acute) Metabolic alkalosis (Acute) Blood in stool (Acute) Morbid obesity (Chronic) Anemia (Chronic) GERD (gastroesophageal reflux disease) (Chronic) Irritable bowel syndrome (Chronic) Overactive bladder (Chronic) You will use the following diet at home:: No restrictions, Regular Your food should be the consistency of: Regular Your liquids should be the consistency of: Regular/Thin Discharge Activity: Return to Normal Activity, May Shower, Use Walker Weight Bearing Status: Weight bearing as tolerated Call your doctor if you observe: Fever of 101 or Higher, Inability to urinate, Inability to have a bowel movement, Shortness of breath, Chest pain, Uncontrolled pain Allergies/Adverse Reactions: Allergies latex Allergy (Verified 08/05/17 21:19) Rash levofloxacin [From Levaquin] Adverse Reaction (Verified 08/05/17 21:19) SPEEDS UP MY HEART AND SHUTS DOWN MY KIDNEYS mushrooms Allergy (Uncoded 08/05/17 21:19) Anaphylaxis STRAWBERRIES Allergy (Uncoded 08/05/17 21:19) Rash Medications to take at Discharge Albuterol Sulfate [Ventolin Hfa] 2 puff INHALATION Q4H PRN PRN 01/08/17 Pantoprazole Sodium [Protonix] 40 mg PO DAILY 02/13/17 Lisinopril [Prinivil] 5 mg PO DAILY 03/06/17 Metoprolol(XL)Succ [Toprol Xl (Beta Vikki)] 25 mg PO DAILY 03/06/17 Acetaminophen [Tylenol Tablet] 650 mg PO Q6H PRN PRN 03/10/17 Dicyclomine HCl [Bentyl] 20 mg PO Q6H PRN PRN 03/10/17 Glimepiride [Amaryl] 1 tab PO DAILY 08/05/17 Multivitamin [Daily Multiple Vitamin] 1 each PO DAILY 08/05/17 Oxybutynin Chloride [Ditropan Xl] 15 mg PO DAILY 08/05/17 Guaifenesin [Mucinex] 1,200 mg PO BID 10/04/17 AcetaAZOLAMIDE [Diamox] 250 mg PO TID #90 tab 10/21/17 Diltiazem CD [Cardizem CD] 240 mg PO DAILY #60 cap 10/21/17 Furosemide [Lasix] 20 mg PO BIDLX #60 tab 10/21/17 Iron Polysaccharide Complex [Ferrex 150] 150 mg PO DAILYCM #30 cap 10/21/17 Menthol/Lanolin/Calamine/Znox [Calmoseptine Ointment] 1 applic TOPICAL TID tube 10/21/17 Nystatin Powder [Mycostatin Powder] 1 applic TOPICAL 0600,2200 #1 bottle 10/21/17 Polyethylene Glycol 3350 [Miralax] 17 gm PO DAILY #30 packet 10/21/17 The following prescriptions were given: Diltiazem CD [Cardizem CD] 240 mg PO DAILY #60 cap Furosemide [Lasix] 20 mg PO BIDLX #60 tab Iron Polysaccharide Complex [Ferrex 150] 150 mg PO DAILYCM #30 cap Nystatin Powder [Mycostatin Powder] 1 applic TOPICAL 0600,2200 #1 bottle Polyethylene Glycol 3350 [Miralax] 17 gm PO DAILY #30 packet AcetaAZOLAMIDE [Diamox] 250 mg PO TID #90 tab Primary Care Physician: Merrick Mace MD [Primary Care Provider] - Please follow up with your Primary Care Physician in: 1 week. Proposed Discharge Date: 10/25/17
--- NOTE | 2017-10-21 22:21 | PCM.DC.SUM ---
Discharge Date and Diagnosis - Problem List Patient Problems: Active and Suspected Problems Shortness of breath (Acute) Acute on chronic diastolic heart failure (Acute) Acute bronchitis (Acute) Atrial fibrillation with RVR (Acute) Otitis externa (Acute) Metabolic alkalosis (Acute) Blood in stool (Acute) Date of Admission: 10/09/17 Date of Discharge: 10/25/17 - Primary Discharge Diagnosis Active and Suspected Problems Shortness of breath (Acute) Acute on chronic diastolic heart failure (Acute) Acute bronchitis (Acute) Atrial fibrillation with RVR (Acute) Otitis externa (Acute) Metabolic alkalosis (Acute) Blood in stool (Acute) - Secondary Discharge Diagnosis Chronic Problems acute on chronic blood loss anemia (Chronic) Morbid obesity (Chronic) Anemia (Chronic) GERD (gastroesophageal reflux disease) (Chronic) Irritable bowel syndrome (Chronic) Overactive bladder (Chronic) Wide-complex tachycardia (Chronic) Chronic diastolic CHF (congestive heart failure) (Chronic) Type 2 diabetes mellitus (Chronic) HgbA1c 06/2016 6.5%. 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 Cholelithiasis. Electronically Signed: Nazario Guerrero DO at 19:14 EDT Tel [phone], Service support , Labs (Last 48 Hours) 10/20/17 10/20/17 10/20/17 06:41 11:27 16:51 POC Glucose 107 160 H 108 10/20/17 10/21/17 10/21/17 21:10 06:51 11:24 POC Glucose 144 H 89 161 H 10/21/17 10/21/17 16:54 21:19 POC Glucose 148 H 105 Operations: None Procedures: None Summary of Care Provided: The patient is a 52 year old Female with below past medical history hospitalized for shortness of breath secondary to acute on chronic diastolic heart failure, acute bronchitis, complicated by metabolic alkalosis, left otitis externa, new onset atrial fibrillation with rapid ventricular response, admitted to TCU with debility, here for rehabilitation, strengthening, prior to discharge home with spouse. Discharge home with spouse. Discharge Diet: No Restrictions Discharge Activity: Return to Normal Activity, May Shower, Use Walker Weight Bearing Status: Weight bearing as tolerated Call your doctor if you observe: Fever of 101 or Higher, Inability to urinate, Inability to have a bowel movement, Shortness of breath, Chest pain, Uncontrolled pain Home Medications: Medications to take at Discharge Albuterol Sulfate [Ventolin Hfa] 2 puff INHALATION Q4H PRN PRN 01/08/17 Pantoprazole Sodium [Protonix] 40 mg PO DAILY 02/13/17 Lisinopril [Prinivil] 5 mg PO DAILY 03/06/17 Metoprolol(XL)Succ [Toprol Xl (Beta Vikki)] 25 mg PO DAILY 03/06/17 Acetaminophen [Tylenol Tablet] 650 mg PO Q6H PRN PRN 03/10/17 Dicyclomine HCl [Bentyl] 20 mg PO Q6H PRN PRN 03/10/17 Glimepiride [Amaryl] 1 tab PO DAILY 08/05/17 Multivitamin [Daily Multiple Vitamin] 1 each PO DAILY 08/05/17 Oxybutynin Chloride [Ditropan Xl] 15 mg PO DAILY 08/05/17 Guaifenesin [Mucinex] 1,200 mg PO BID 10/04/17 AcetaAZOLAMIDE [Diamox] 250 mg PO TID #90 tab 10/21/17 Diltiazem CD [Cardizem CD] 240 mg PO DAILY #60 cap 10/21/17 Furosemide [Lasix] 20 mg PO BIDLX #60 tab 10/21/17 Iron Polysaccharide Complex [Ferrex 150] 150 mg PO DAILYCM #30 cap 10/21/17 Menthol/Lanolin/Calamine/Znox [Calmoseptine Ointment] 1 applic TOPICAL TID tube 10/21/17 Nystatin Powder [Mycostatin Powder] 1 applic TOPICAL 0600,2200 #1 bottle 10/21/17 Polyethylene Glycol 3350 [Miralax] 17 gm PO DAILY #30 packet 10/21/17 Following Prescrptions Were Given to Patient: Diltiazem CD [Cardizem CD] 240 mg PO DAILY #60 cap Furosemide [Lasix] 20 mg PO BIDLX #60 tab Iron Polysaccharide Complex [Ferrex 150] 150 mg PO DAILYCM #30 cap Nystatin Powder [Mycostatin Powder] 1 applic TOPICAL 0600,0 #1 bottle Polyethylene Glycol 3350 [Miralax] 17 gm PO DAILY #30 packet AcetaAZOLAMIDE [Diamox] 250 mg PO TID #90 tab Primary Care Physician: Merrick Mcae MD [Primary Care Provider] - Please follow up with your Primary Care Physician in: 1 week. Disposition: Home Minutes spent on discharge:: 30 Patient Condition:: Stable Medical Necessity - Tobacco Use Smoking Status: Former smoker Tobacco Use: Non-smoker Meaningful Use Info Meaningful Use Diagnoses (Choose all that apply): None applicable
[2017-10-22] MEDS: Nystatin Powder 15gm Bottle 1 APPLIC TOPICAL ×2 (05:46→19:58)
[2017-10-22 05:48] VITALS: BP 120/61; PULSE 71
[2017-10-22] MEDS: Lisinopril 5 MG Tablet PO (05:48)
[2017-10-22] MEDS: Metoprolol(XL)Succ 25 MG Tablet PO (05:48)
[2017-10-22] MEDS: Pantoprazole Sodium 40 MG Tablet PO (05:48)
[2017-10-22] MEDS: Enoxaparin 40 MG/0.4 ML Syringe SC (05:48)
[2017-10-22] MEDS: AcetaZOLAMIDE 250 MG Tablet PO ×3 (05:48→19:58)
[2017-10-22] MEDS: Furosemide 20 MG Tablet PO ×2 (05:48→12:53)
[2017-10-22] MEDS: dilTIAZem CD 240 MG Capsule PO (05:48)
[2017-10-22] MEDS: Tolterodine Tartrate 4 MG CAP.SA PO (05:48)
[2017-10-22] MEDS: guaiFENesin 1,200 MG Tablet 1200 MG PO ×2 (05:49→16:58)
[2017-10-22] MEDS: Menthol/Lanolin/Calamine/Znox 113 GM Tube 1 APPLIC TOPICAL ×3 (05:50→19:58)
[2017-10-22 06:36] LABS: Bedside Glucose 97 mg/dL (70-110)
[2017-10-22] MEDS: Multivitamins,Therapeutic Tablet 1 TABLET PO (07:52)
[2017-10-22] MEDS: Glimepiride 2 MG Tablet PO (07:52)
[2017-10-22] MEDS: Iron Polysaccharide Complex 150 MG CAPSULE PO (07:52)
[2017-10-22 08:07] VITALS: O2SAT 91
--- NOTE | 2017-10-22 10:36 | MDS.RN ---
Information for the mds was obtained from review of the clinical record, interview of resident, staff, and direct observation of resident's care.
[2017-10-22 11:50] LABS: Bedside Glucose 120 mg/dL (70-110)
[2017-10-22 15:12] VITALS: BP 119/61; PULSE 74; RESP 18; TEMP 36.4; O2SAT 91
[2017-10-22] MEDS: Acetaminophen 500 MG Tablet 1000 MG PO (16:58)
[2017-10-22 17:16] LABS: Bedside Glucose 104 mg/dL (70-110)
[2017-10-22 21:16] LABS: Bedside Glucose 138 mg/dL (70-110)
[2017-10-23 05:33] VITALS: BP 116/53; PULSE 73
[2017-10-23] MEDS: Pantoprazole Sodium 40 MG Tablet PO (05:33)
[2017-10-23] MEDS: Metoprolol(XL)Succ 25 MG Tablet PO (05:33)
[2017-10-23] MEDS: AcetaZOLAMIDE 250 MG Tablet PO ×3 (05:33→20:10)
[2017-10-23] MEDS: Furosemide 20 MG Tablet PO ×2 (05:33→14:01)
[2017-10-23] MEDS: Tolterodine Tartrate 4 MG CAP.SA PO (05:33)
[2017-10-23] MEDS: dilTIAZem CD 240 MG Capsule PO (05:34)
[2017-10-23] MEDS: guaiFENesin 1,200 MG Tablet 1200 MG PO ×2 (05:34→18:05)
[2017-10-23] MEDS: Lisinopril 5 MG Tablet PO (05:34)
[2017-10-23] MEDS: Nystatin Powder 15gm Bottle 1 APPLIC TOPICAL ×2 (05:35→20:12)
[2017-10-23] MEDS: Enoxaparin 40 MG/0.4 ML Syringe SC (05:35)
[2017-10-23] MEDS: Menthol/Lanolin/Calamine/Znox 113 GM Tube 1 APPLIC TOPICAL ×3 (05:36→20:12)
[2017-10-23 06:51] LABS: Bedside Glucose 101 mg/dL (70-110)
[2017-10-23 08:03] VITALS: O2SAT 91
[2017-10-23] MEDS: Glimepiride 2 MG Tablet PO (08:12)
[2017-10-23] MEDS: Iron Polysaccharide Complex 150 MG CAPSULE PO (08:12)
[2017-10-23] MEDS: Multivitamins,Therapeutic Tablet 1 TABLET PO (08:12)
[2017-10-23 11:20] LABS: Bedside Glucose 158 mg/dL (70-110)
[2017-10-23 16:00] VITALS: BP 99/52; PULSE 68; RESP 16; TEMP 36.7; O2SAT 91
[2017-10-23 17:41] LABS: Bedside Glucose 135 mg/dL (70-110)
[2017-10-23 21:21] LABS: Bedside Glucose 115 mg/dL (70-110)
[2017-10-23 22:00] VITALS: O2SAT 95
[2017-10-24 05:54] LABS: Absolute Lymphocyte Count 1.16 X10^3/ul (0.83-4.51); Absolute Neutrophil Count 4.3 X10^3/uL (2.0-7.7); Basophil# 0.02 X10^3/uL; Basophil% 0.3 % (0-1); Eosinophil# 0.39 X10^3/uL; Eosinophils% 6.3 % (0-5); Hematocrit 33.2 % (37-47); Hemoglobin 9.1 g/dl (12.0-15.0); Lymphocyte # 1.16 X10^3/ul (4.0); Lymphocyte % 18.7 % (19-41); Mean Corp Hgb Conc 27.4 g/gl (32-36); Mean Corpuscular Hgb 25.1 pg (27.0-32.0); Mean Corpuscular Volume 91.7 fL (81-99); Mean Platelet Vol. 9.2 fl (6.2-12.0); Monocyte% 4.8 % (0-10); Neutrophil # 4.33 X10^3/uL (2.7-7.7); Neutrophil % 69.7 % (47-70); POSITIVE COUNT NO; POSITIVE DIFFERENTIAL NO; POSITIVE MORPHOLOGY NO; Platelet Count 149 K/mm3 (150-450); RBC Distribution Width CV 16.6 % (11.6-14.6); Red Blood Count 3.62 M/mm3 (4.2-5.4); White Blood Count 6.2 K/mm3 (4.4-11.0)
[2017-10-24 06:12] LABS: Anion Gap 7 (5-15); BUN 40 mg/dL (7-18); BUN/Creat Ratio 39.6 RATIO (10-20); Calcium,Total 8.4 mg/dL (8.5-10.1); Chloride 107 mmol/L (98-107); Creatinine, Serum 1.01 mg/dL (0.55-1.02); EST Glomerular Filtration Rate 61 mL/min (>60); Est Glom Filt Rate - Afr Amer 74 mL/min (>60); Glucose 84 mg/dL (74-106); Potassium 4.4 mmol/L (3.5-5.1); Sodium Level 144 mmol/L (136-145)
[2017-10-24] MEDS: dilTIAZem CD 240 MG Capsule PO (06:20)
[2017-10-24] MEDS: Pantoprazole Sodium 40 MG Tablet PO (06:20)
[2017-10-24] MEDS: guaiFENesin 1,200 MG Tablet 1200 MG PO ×2 (06:20→17:24)
[2017-10-24] MEDS: Lisinopril 5 MG Tablet PO (06:20)
[2017-10-24] MEDS: AcetaZOLAMIDE 250 MG Tablet PO ×3 (06:20→21:47)
[2017-10-24] MEDS: Tolterodine Tartrate 4 MG CAP.SA PO (06:20)
[2017-10-24 06:21] VITALS: BP 109/61; PULSE 70
[2017-10-24] MEDS: Nystatin Powder 15gm Bottle 1 APPLIC TOPICAL ×2 (06:21→21:50)
[2017-10-24] MEDS: Enoxaparin 40 MG/0.4 ML Syringe SC (06:21)
[2017-10-24] MEDS: Furosemide 20 MG Tablet PO ×2 (06:21→13:09)
[2017-10-24] MEDS: Metoprolol(XL)Succ 25 MG Tablet PO (06:21)
[2017-10-24] MEDS: Menthol/Lanolin/Calamine/Znox 113 GM Tube 1 APPLIC TOPICAL ×3 (06:26→21:49)
[2017-10-24 07:06] LABS: Bedside Glucose 89 mg/dL (70-110)
[2017-10-24 07:57] VITALS: O2SAT 94
[2017-10-24] MEDS: Iron Polysaccharide Complex 150 MG CAPSULE PO (10:30)
[2017-10-24] MEDS: Glimepiride 2 MG Tablet PO (10:30)
[2017-10-24] MEDS: Multivitamins,Therapeutic Tablet 1 TABLET PO (10:30)
[2017-10-24 11:50] LABS: Bedside Glucose 116 mg/dL (70-110)
[2017-10-24 16:00] VITALS: BP 120/61; PULSE 75; RESP 18; TEMP 36.7; O2SAT 93
[2017-10-24 17:10] LABS: Bedside Glucose 144 mg/dL (70-110)
[2017-10-24 21:15] LABS: Bedside Glucose 143 mg/dL (70-110)
[2017-10-25 04:35] VITALS: PULSE 78
[2017-10-25] MEDS: Metoprolol(XL)Succ 25 MG Tablet PO (04:35)
[2017-10-25] MEDS: Enoxaparin 40 MG/0.4 ML Syringe SC (04:35)
[2017-10-25] MEDS: guaiFENesin 1,200 MG Tablet 1200 MG PO (04:36)
[2017-10-25] MEDS: Pantoprazole Sodium 40 MG Tablet PO (04:36)
[2017-10-25] MEDS: Tolterodine Tartrate 4 MG CAP.SA PO (04:36)
[2017-10-25] MEDS: Furosemide 20 MG Tablet PO (04:36)
[2017-10-25] MEDS: AcetaZOLAMIDE 250 MG Tablet PO (04:36)
[2017-10-25] MEDS: Lisinopril 5 MG Tablet PO (04:36)
[2017-10-25] MEDS: dilTIAZem CD 240 MG Capsule PO (04:37)
[2017-10-25] MEDS: Nystatin Powder 15gm Bottle 1 APPLIC TOPICAL (04:39)
[2017-10-25] MEDS: Menthol/Lanolin/Calamine/Znox 113 GM Tube 1 APPLIC TOPICAL (04:39)
[2017-10-25 06:41] LABS: Bedside Glucose 98 mg/dL (70-110)
[2017-10-25] MEDS: Glimepiride 2 MG Tablet PO (08:05)
[2017-10-25] MEDS: Iron Polysaccharide Complex 150 MG CAPSULE PO (08:05)
[2017-10-25] MEDS: Multivitamins,Therapeutic Tablet 1 TABLET PO (08:05)
[2017-10-25 12:04] VITALS: BP 109/61; PULSE 68; RESP 24; TEMP 36.2; O2SAT 92
--- NOTE | 2017-11-06 13:19 | MDS.RN ---
Information for the mds was obtained from review of the clinical record, interview of resident, staff, and direct observation of resident's care.
== END 2017-10-25 12:06 | disposition home or self-care (01) | DRG 947 ==
PROVIDERS: Admitting Provider Family Medicine Geriatric Medicine; Family Provider Family Medicine; PCP Family Medicine; Visit Provider Family Medicine Geriatric Medicine
DX: R53.81 Other malaise (principal); I50.33 Acute on chronic diastolic (congestive) heart failure; Z68.44 Body mass index [BMI] 60.0-69.9, adult; E87.3 Alkalosis; I11.0 Hypertensive heart disease with heart failure; I48.91 Unspecified atrial fibrillation; K21.9 Gastro-esophageal reflux disease without esophagitis; E66.01 Morbid (severe) obesity due to excess calories; N32.81 Overactive bladder; K58.9 Irritable bowel syndrome, unspecified; E78.5 Hyperlipidemia, unspecified; G47.33 Obstructive sleep apnea (adult) (pediatric); J45.909 Unspecified asthma, uncomplicated; I45.81 Long QT syndrome; E11.42 Type 2 diabetes mellitus with diabetic polyneuropathy; D50.9 Iron deficiency anemia, unspecified; B35.4 Tinea corporis; E11.621 Type 2 diabetes mellitus with foot ulcer; L97.512 Non-pressure chronic ulcer of other part of right foot with fat layer exposed; Z23 Encounter for immunization; J20.9 Acute bronchitis, unspecified; H60.502 Unspecified acute noninfective otitis externa, left ear; Z71.3 Dietary counseling and surveillance; Z87.891 Personal history of nicotine dependence; Z79.899 Other long term (current) drug therapy
CPT/HCPCS: 36415; 74018; 80048; 82962; 85025; 90732; 97110; 97116; 97162; 97166; 97530; 97535; 97802; G0009

== ENCOUNTER 2017-11-11 12:30 | Inpatient (IN) | payer MEDICARE, SELFPAY ==
--- NOTE | 2017-11-10 15:32 | RAD_ITS ---
STUDY: X-RAY CHEST REASON FOR EXAM: Female, 52 years old. CHF. Shortness of breath. Recent pneumonia. TECHNIQUE: Frontal and lateral views of the chest. COMPARISON: October 08, 2017 FINDINGS: There is hyperinflation of the lungs consistent with chronic obstructive lung disease (COPD). There is no demonstrated pleural abnormality. Normal size heart. Normal mediastinum and negra. Normal visualized pulmonary arteries. Normal visualized aortic arch and descending thoracic aorta. There is straightening of the normal kyphosis of the thoracic spine. Normal visualized ribs, clavicles, and shoulders. There is no demonstrated abnormality of the visualized soft tissue structures of the upper abdomen. RAD/Chest PA and Lateral IMPRESSION: Degenerative changes, as described above. No demonstrated acute cardiopulmonary process. Electronically Signed: Guy Reynolds MD at 17:52 EDT , Service support ,
--- NOTE | 2017-11-11 12:30 | DT_ITS ---
This patient was seen during an EMR downtime November 10, 2017 - November 17, 2017. This patient may have a combination of paper and electronic documentation or all paper documentation. All documentation is viewable within the e-chart portion of [facility] for each patient visit.
--- NOTE | 2017-11-11 12:54 | CT_ITS ---
STUDY: CT PELVIS WITH CONTRAST REASON FOR EXAM: Female, 52 years old. Evaluation of the left thigh abscess RADIATION DOSAGE (If Supplied By Facility): CTDIvol = ( 57.40 ) mGy, DLP = ( 3922.19 ) mGycm TECHNIQUE: Transaxial imaging of the pelvis was performed without oral contrast. 100ML ml of Isovue 300 contrast was administered intravenously. Individualized dose optimization techniques were used for this CT. COMPARISON: None. FINDINGS: There is a large 16 x 7 cm area of cellulitis involving the medial aspect of the left upper thigh with a 5 cm area of pockets of gas located centrally and consistent with an abscess. There is no violation of the deep fascia of the thigh and no neurovascular bundle involvement. A similar finding is seen in the inner aspect of the right thigh but more inferiorly. This is also mainly cellulitis with a 10 cm inflammatory phlegmon in its central area. CT/Extremity Lower WITH Contrast IMPRESSION: A large 16 x 7 cm area of cellulitis of the inner margin of the left upper thigh with a 5 cm area of abscess formation within its central area. A large area of cellulitis in the medial aspect of the right upper thigh with a 10 cm central area of a phlegmon. The right thigh findings are slightly more inferior to the left thigh finding Electronically Signed: Umair Kelley, at 6:27 EDT Tel , Service support ,
--- NOTE | 2017-11-11 12:54 | CT_ITS ---
STUDY: CT CHEST WITH CONTRAST REASON FOR EXAM: Female, 52 years old. Abscess evaluation RADIATION DOSAGE (If Supplied By Facility): CTDIvol = ( 23.83 ) mGy, DLP = ( 912.89 ) mGycm TECHNIQUE: Transaxial imaging was performed following intravenous administration of 100ML ml of Isovue 300 contrast material. Individualized dose optimization techniques were used for this CT. COMPARISON: November 12, 2016 FINDINGS: : TRACHEA, THYROID, ESOPHAGUS: No tracheomalacia,stricture or wall thickening. Thyroid and esophagus are normal CARDIOVASCULAR SYSTEM:The thoracic aorta is normal with no aneurysm, dissection or developmental anomalies. The pulmonary trunk and the left and right pulmonary arteries and their lobar and segmental branches do not show any abnormal and persistent filling defects in them. There is therefore no evidence of pulmonary embolism. The heart is normal. There are no venous anomalies JUVENAL AND LYMPH NODES: No hilar masses and no mediastinal, hilar, axillary or supraclavicular adenopathy LUNGS, LOW-ATTENUATION: No traction bronchiectasis, honeycombing,emphysema, lung cysts or cavitations LUNGS, HIGH ATTENUATION: No nodules/masses, ground glass opacities/consolidations or increased interstitial markings LUNGS, MOSAIC/CRAZY PAVING: Not evident PLEURA AND CHEST WALL: No plural effusions, pneumothoraces,rib fractures or any osteolytic/osteoblastic changes . The soft tissue chest wall including the breasts are normal UPPER ABDOMEN: Unremarkable . CT/Chest WITH Contrast IMPRESSION: No acute findings in the lungs. No contusions or lacerations No abscess formation seen in the chest Electronically Signed: Umair Kelley, at 5:00 EDT Tel , Service support ,
--- NOTE | 2017-11-11 12:54 | CT_ITS ---
STUDY: CT PELVIS WITH CONTRAST REASON FOR EXAM: Female, 52 years old. Evaluation of the left thigh abscess RADIATION DOSAGE (If Supplied By Facility): CTDIvol = ( 57.40 ) mGy, DLP = ( 3922.19 ) mGycm TECHNIQUE: Transaxial imaging of the pelvis was performed without oral contrast. 100ML ml of Isovue 300 contrast was administered intravenously. Individualized dose optimization techniques were used for this CT. COMPARISON: None. FINDINGS: There is a large 16 x 7 cm area of cellulitis involving the medial aspect of the left upper thigh with a 5 cm area of pockets of gas located centrally and consistent with an abscess. There is no violation of the deep fascia of the thigh and no neurovascular bundle involvement. A similar finding is seen in the inner aspect of the right thigh but more inferiorly. This is also mainly cellulitis with a 10 cm inflammatory phlegmon in its central area. CT/Pelvis WITH IV Contrast IMPRESSION: A large 16 x 7 cm area of cellulitis of the inner margin of the left upper thigh with a 5 cm area of abscess formation within its central area. A large area of cellulitis in the medial aspect of the right upper thigh with a 10 cm central area of a phlegmon. The right thigh findings are slightly more inferior to the left thigh finding Electronically Signed: Umair Kelley, at 6:27 EDT Tel , Service support ,
--- NOTE | 2017-11-12 | UL_PTH ---
PATIENT: ELAYNE BASSETT LOC: PCU U#:[id number] AGE/SX: 52/F ROOM: [facility] RE11/11/[address]: Dr. Dagoberto Castro MD : [id number] BED: 1 DIS: 11/14/2017 SPEC #: [id number] RECD: 11/12/17 11:57 STATUS: NAVID REQ #: [id number] RAMÓN: 11/12/17 00:[address]: Andrzej Tran DEPT: SURGICAL PATHOLOGY RECD BY: Hari Collins ENTERED: 11/13/17 11:57 SP TYPE: ULCER OTHR DR: MD Dr. Dagoberto Monge MD Tissues: ULCER Procedures: Special Stain Group I Surgery Specimen Level IV AFB Stain (control) GMS Stain (control) Comments: @ Ordering doctor for SUIII edited from to @ by RGOOD at 11/13/17 1533 @ Submitting doctor edited from to @ by RGOOD at 11/13/17 1533 HEADER OPERATION: Surgical preparation left medial thigh with incision and drainage and excisional debridement diabetic abscess PRE-OP DIAGNOSIS: Diabetic ulcer left thigh TISSUE SUBMITTED: Debrided tissue left thigh MICROSCOPIC DIAGNOSIS Debrided tissue left thigh: Acute inflammation and abscess formation. Intradermal nevus. Special stains for acid fast bacilli and fungi are negative for organisms; matched controls are appropriate. EVARISTO:jim 11/14/17 MICROSCOPIC DESCRIPTION Slides are reviewed. GROSS DESCRIPTION Received in fixative is one container labeled with the patient's name and designated debrided tissue left thigh. The specimen consists of a piece of skin with underlying tissue measuring 17 x 17 x 3 cm. No skin lesion is identified. Sections do not reveal any mass lesion. Tipple Tender sections are submitted in three cassettes. / EVARISTO:jim 11/12/17 More sections are submitted in three cassettes, 4-6. / EVARISTO:jim 11/13/17 TC:1 CPT: 53351, 37838 x2
[2017-11-13 10:38] LABS: ALB/GLOB Ratio 0.5 RATIO (0.9-2.4); AST(SGOT) 5 U/L (15-37); Alanine Aminotransfer ALT/SGPT < 6 U/L (13-56); Albumin, Serum 2.7 g/dL (3.2-5.0); Alkaline Phosphatase 92 U/L (45-117); Anion Gap 11 (5-15); BUN 50 mg/dL (7-18); BUN/Creat Ratio 29.8 RATIO (10-20); Calcium,Total 8.1 mg/dL (8.5-10.1); Chloride 105 mmol/L (98-107); Creatinine, Serum 1.68 mg/dL (0.55-1.02); EST Glomerular Filtration Rate 34 mL/min (>60); Est Glom Filt Rate - Afr Amer 41 mL/min (>60); Globulin 5.7 g/dL (2.2-4.2); Glucose 123 mg/dL (74-106); Lactic Acid 1.9 mmol/L (0.4-2.0); Potassium 4.2 mmol/L (3.5-5.1); Protein, Total 8.4 g/dL (6.4-8.2); Sodium Level 137 mmol/L (136-145)
[2017-11-13 17:44] LABS: International Normalized Ratio 1.2; Partial Thromboplast Time 39.8 Seconds (24.1-36.2); Prothrombin Time (Protime)PT. 15.4 SECONDS (11.7-14.9)
[2017-11-13 17:59] LABS: Mucous, Urine 0 SEEN /hpf (<or=2+); Red Blood Cells-Urine 0 SEEN /hpf (0-5); White Blood Cells 0 SEEN /hpf (0-5)
[2017-11-13 18:18] LABS: Color, Urine Yellow (Yellow); Glucose, Dipstick NEGATIVE (Normal); Ketone-Dipstick Negative (Negative); Leukocyte Esterase-Dipstick Negative /ul (Negative); Nitrite-Dipstick Negative (Negative); Occult Blood-Urine Negative /ul (Negative); Protein-Dipstick 15 mg/dl (Negative); Specific Gravity, Urine 1.015 (1.002-1.030); Urine Bilirubin Dipstick Negative (Negative); Urine Clarity Sl Cldy (Clear); Urine Urobilinogen Normal (Normal)
[2017-11-13 18:19] LABS: Bacteria 1+ /hpf (None Seen); Squamous Epithelial Cells - UA 0-5 SEEN /hpf (5-10)
[2017-11-14 10:06] LABS: Anion Gap 8 (5-15); BUN 38 mg/dL (7-18); BUN/Creat Ratio 33.3 RATIO (10-20); Calcium,Total 7.9 mg/dL (8.5-10.1); Chloride 110 mmol/L (98-107); Creatinine, Serum 1.14 mg/dL (0.55-1.02); EST Glomerular Filtration Rate 53 mL/min (>60); Est Glom Filt Rate - Afr Amer 64 mL/min (>60); Glucose 89 mg/dL (74-106); Potassium 4.1 mmol/L (3.5-5.1); Sodium Level 141 mmol/L (136-145)
[2017-11-14 10:07] LABS: Hematocrit 28.8 % (37-47); Mean Corpuscular Volume 84.6 fL (81-99); White Blood Count 13.9 K/mm3 (4.4-11.0)
[2017-11-14 10:08] LABS: Absolute Neutrophil Count 12.5 X10^3/uL (2.0-7.7); Basophil% 0.3 % (0-1); Eosinophils% 0.5 % (0-5); Mean Corp Hgb Conc 31.3 g/gl (32-36); Mean Corpuscular Hgb 26.5 pg (27.0-32.0); Mean Platelet Vol. 8.7 fl (6.2-12.0); Neutrophil % 90.2 % (47-70); POSITIVE COUNT NO; POSITIVE DIFFERENTIAL NO; POSITIVE MORPHOLOGY NO; Platelet Count 181 K/mm3 (150-450); RBC Distribution Width CV 18.8 % (11.6-14.6)
[2017-11-14 10:32] LABS: Hematocrit 23.3 % (37-47); Hemoglobin 6.7 g/dl (12.0-15.0); Mean Corp Hgb Conc 28.8 g/gl (32-36); Mean Corpuscular Volume 90.3 fL (81-99); RBC Distribution Width CV 17.4 % (11.6-14.6); Red Blood Count 2.58 M/mm3 (4.2-5.4); White Blood Count 13.1 K/mm3 (4.4-11.0)
[2017-11-14 10:33] LABS: Mean Platelet Vol. 9.2 fl (6.2-12.0); Platelet Count 180 K/mm3 (150-450); RBC Distribution Width SD 57.4 fl (35.1-43.9); Scan Indicated on CBC? Y/N NO
[2017-11-14 11:20] LABS: Hematocrit 27.5 % (37-47); Hemoglobin 7.8 g/dl (12.0-15.0); Mean Corp Hgb Conc 28.4 g/gl (32-36); Mean Corpuscular Hgb 26.5 pg (27.0-32.0); Mean Corpuscular Volume 93.5 fL (81-99); RBC Distribution Width CV 17.2 % (11.6-14.6); Red Blood Count 2.94 M/mm3 (4.2-5.4); White Blood Count 11.6 K/mm3 (4.4-11.0)
[2017-11-14 11:21] LABS: Mean Platelet Vol. 10.2 fl (6.2-12.0); Platelet Count 141 K/mm3 (150-450); Scan Indicated on CBC? Y/N NO
[2017-11-14 12:09] LABS: Hematocrit 27.1 % (37-47); Hemoglobin 7.9 g/dl (12.0-15.0); Mean Corp Hgb Conc 29.2 g/gl (32-36); Mean Corpuscular Hgb 26.9 pg (27.0-32.0); Mean Corpuscular Volume 92.2 fL (81-99); Mean Platelet Vol. 9.1 fl (6.2-12.0); Platelet Count 128 K/mm3 (150-450); RBC Distribution Width CV 17.2 % (11.6-14.6); RBC Distribution Width SD 55.6 fl (35.1-43.9); Red Blood Count 2.94 M/mm3 (4.2-5.4); Scan Indicated on CBC? Y/N NO; White Blood Count 10.3 K/mm3 (4.4-11.0)
[2017-11-14 13:42] LABS: M R Staph aureus DNA By PCR Negative (Negative); Probe Check PASS; Specimen Processing Control PASS; Staph aureus DNA By PCR NEGATIVE (Negative)
[2017-11-15 09:43] LABS: Mean Corpuscular Hgb 26.8 pg (27.0-32.0); Mean Corpuscular Volume 88.1 fL (81-99); Red Blood Count 2.61 M/mm3 (4.2-5.4); White Blood Count 7.8 K/mm3 (4.4-11.0)
[2017-11-15 09:44] LABS: Mean Corp Hgb Conc 30.4 g/gl (32-36); Mean Platelet Vol. 8.6 fl (6.2-12.0); Platelet Count 119 K/mm3 (150-450); RBC Distribution Width CV 16.9 % (11.6-14.6); Scan Indicated on CBC? Y/N NO
[2017-11-15 10:02] LABS: Vancomycin, Trough Level 52.6 ug/mL (5.0-15.0)
[2017-11-15 10:10] LABS: Anion Gap 7 (5-15); BUN 39 mg/dL (7-18); BUN/Creat Ratio 30.5 RATIO (10-20); Calcium,Total 7.3 mg/dL (8.5-10.1); Chloride 110 mmol/L (98-107); Creatinine, Serum 1.28 mg/dL (0.55-1.02); EST Glomerular Filtration Rate 47 mL/min (>60); Est Glom Filt Rate - Afr Amer 57 mL/min (>60); Glucose 87 mg/dL (74-106); Potassium 4.1 mmol/L (3.5-5.1); Sodium Level 140 mmol/L (136-145)
[2017-11-15 12:46] LABS: Anion Gap 8 (5-15); BUN 23 mg/dL (7-18); Calcium,Total 7.6 mg/dL (8.5-10.1); Chloride 114 mmol/L (98-107); Creatinine, Serum 0.96 mg/dL (0.55-1.02); EST Glomerular Filtration Rate 65 mL/min (>60); Est Glom Filt Rate - Afr Amer 79 mL/min (>60); Glucose 110 mg/dL (74-106); Sodium Level 146 mmol/L (136-145)
[2017-11-15 13:33] LABS: Anion Gap 8 (5-15); BUN 24 mg/dL (7-18); BUN/Creat Ratio 23.8 RATIO (10-20); Chloride 112 mmol/L (98-107); Creatinine, Serum 1.01 mg/dL (0.55-1.02); EST Glomerular Filtration Rate 61 mL/min (>60); Est Glom Filt Rate - Afr Amer 74 mL/min (>60); Glucose 111 mg/dL (74-106); Potassium 3.8 mmol/L (3.5-5.1); Sodium Level 145 mmol/L (136-145)
[2017-11-15 13:37] LABS: Vancomycin, Trough Level 33.1 ug/mL (5.0-15.0)
[2017-11-15 13:39] LABS: Vancomycin, Random Level 32.8 ug/mL (0.0-15.0)
[2017-11-15 15:08] LABS: Hematocrit 27.7 % (37-47); Hemoglobin 8.3 g/dl (12.0-15.0); Mean Corpuscular Hgb 27.7 pg (27.0-32.0); Mean Corpuscular Volume 92.3 fL (81-99); Mean Platelet Vol. 9.7 fl (6.2-12.0); Platelet Count 148 K/mm3 (150-450); RBC Distribution Width CV 16.2 % (11.6-14.6); RBC Distribution Width SD 52.7 fl (35.1-43.9); Scan Indicated on CBC? Y/N NO; White Blood Count 7.8 K/mm3 (4.4-11.0)
[2017-11-17 17:50] LABS: Hematocrit 28.1 % (37-47); Hemoglobin 8.4 g/dl (12.0-15.0); Mean Corp Hgb Conc 29.9 g/gl (32-36); Mean Corpuscular Hgb 27.2 pg (27.0-32.0); Mean Corpuscular Volume 90.9 fL (81-99); Mean Platelet Vol. 10.1 fl (6.2-12.0); Platelet Count 187 K/mm3 (150-450); RBC Distribution Width CV 16.4 % (11.6-14.6); RBC Distribution Width SD 54.3 fl (35.1-43.9); Red Blood Count 3.09 M/mm3 (4.2-5.4); Scan Indicated on CBC? Y/N NO; White Blood Count 6.8 K/mm3 (4.4-11.0)
[2017-11-17 22:33] LABS: BUN 15 mg/dL (7-18); BUN/Creat Ratio 17.2 RATIO (10-20); Calcium,Total 7.8 mg/dL (8.5-10.1); Creatinine, Serum 0.87 mg/dL (0.55-1.02); EST Glomerular Filtration Rate 73 mL/min (>60); Est Glom Filt Rate - Afr Amer 88 mL/min (>60); Glucose 107 mg/dL (74-106); Magnesium 1.8 mg/dL (1.6-2.6); Sodium Level 142 mmol/L (136-145); Vancomycin, Random Level 18.7 ug/mL (0.0-15.0)
[2017-11-17 22:34] LABS: Anion Gap 7 (5-15); Chloride 111 mmol/L (98-107); Potassium 3.5 mmol/L (3.5-5.1)
[2017-11-20 16:51] LABS: Bedside Glucose 123 mg/dL (70-110)
[2017-11-20 16:53] LABS: Bedside Glucose 135 mg/dL (70-110)
[2017-11-20 16:54] LABS: Bedside Glucose 120 mg/dL (70-110)
[2017-11-20 16:56] LABS: Bedside Glucose 119 mg/dL (70-110)
[2017-11-21 09:11] LABS: Bedside Glucose 91 mg/dL (70-110)
[2017-11-21 10:53] LABS: Bedside Glucose 86 mg/dL (70-110)
[2017-11-22 14:47] LABS: Bedside Glucose 146 mg/dL (70-110)
[2017-11-22 14:49] LABS: Bedside Glucose 112 mg/dL (70-110)
[2017-11-22 14:50] LABS: Bedside Glucose 148 mg/dL (70-110)
[2017-11-23 17:01] LABS: Bedside Glucose 161 mg/dL (70-110)
[2017-11-23 17:18] LABS: Bedside Glucose 114 mg/dL (70-110)
[2017-11-26 08:50] LABS: Bedside Glucose 121 mg/dL (70-110)
[2017-11-26 08:51] LABS: Bedside Glucose 100 mg/dL (70-110)
--- NOTE | 2017-11-26 17:50 | PCM.PN.SRG ---
Subjective: Postop #15 Patient had surgery on 11/11/17 where she underwent surgical preparation left medial thigh and crural area and inguinal area with incision and drainage and excisional debridement necrotizing diabetic abscess (160 cm2). VAC was applied initially. Operative cultures showed Enterococcus faecalis and Anaerobic cocci and Prevotella melaninogenica. She was treated with Vancomycin and Unasyn. Recently she was having some greenish drainage from the wound. She was having difficulty with maintaining a seal with the VAC. At present, she has Dakin's dressing changes. Her wound is being complicated with stool contamination as the patient does not ambulate much. - Physical Exam General: Alert, Oriented x3 HEENT: PERRLA, EOMI Neck: Supple Abdomen: Soft, Non-Distended, Obese Extremities: No clubbing, No cyanosis, Edema - mild edema in lower extremities. Skin: Ulcer/ Wound - left medial thigh wound showing some granulation tissue. Some greenish drainage. Some odor. Some fat necrosis present. Doing better with Dakin's dressing changes. No bleeding. Neurological: Cranial nerves II-XII grossly intact Psych/Mental Status: Normal Affect, Appropriate POC Glucose 11/12/17 11/11/17 06:45 22:25 POC Glucose 100 121 H Medical Necessity - Tobacco Use Smoking Status: Former smoker Assessment/Plan All Active Problems CAP (community acquired pneumonia) (Acute) Lower GI bleed (Acute) Acute and chronic respiratory failure with hypoxia (Acute) Acute on chronic diastolic heart failure (Acute) Acute bronchitis with asthma with acute exacerbation (Acute) Shortness of breath (Acute) Acute on chronic diastolic heart failure (Acute) Acute bronchitis (Acute) Atrial fibrillation with RVR (Acute) Otitis externa (Acute) Metabolic alkalosis (Acute) Blood in stool (Acute) Abdominal pain (Resolved) 1. Open surgical diabetic wound left medial thigh and crural area and inguinal area. 2. Diabetes mellitus. 3. History of necrotizing infection. 4. s/p surgical preparation left medial thigh and crural area and inguinal area with incision and drainage and excisional debridement necrotizing diabetic abscess (160 cm2). 5. Stool contamination in diabetic wound. Continue Dakin's dressing changes. Am concerned about the drainage combined with her stool contamination. Will start IV Unasyn from her previous operative culture that showed Enterococcus faecalis and Anaerobes. At the next dressing change, will obtain a wound culture. If wound worsens with the stool contamination, she is at increased risk for additional aggressive debridement surgery. Will obtain a General Surgery consult for a diverting colostomy. Will check CBC, BMP, and Prealbumin in the morning. Encourage nutritional supplementation with protein to help the healing process. After discharge, can followup at the [facility]. If there is a plateau in the healing process, can proceed with delayed closure with skin grafting.
== END 2017-11-14 14:20 | disposition skilled nursing facility (03) | DRG 623 ==
LOC: ED 11-12 12:31 → PCU 11-13 11:28
PROVIDERS: Family Medicine; Internal Medicine; Surgery; Admitting Provider Family Medicine; Emergency Provider Emergency Medicine; Family Provider Family Medicine; PCP Family Medicine; Visit Provider Family Medicine
PROC: 0JBM0ZZ Excision of Left Upper Leg Subcutaneous Tissue and Fascia, Open Approach (ICD-10-PCS; principal; 2017-11-11 07:15)
DX: E11.628 Type 2 diabetes mellitus with other skin complications (principal); L02.416 Cutaneous abscess of left lower limb; D62 Acute posthemorrhagic anemia; D64.9 Anemia, unspecified; E66.01 Morbid (severe) obesity due to excess calories; I11.0 Hypertensive heart disease with heart failure; I50.9 Heart failure, unspecified; I89.0 Lymphedema, not elsewhere classified; I95.9 Hypotension, unspecified; E66.9 Obesity, unspecified; Z79.84 Long term (current) use of oral hypoglycemic drugs; Z79.899 Other long term (current) drug therapy
CPT/HCPCS: 36415; 71046; 71260; 72193; 73701; 80048; 80053; 80202; 81001; 82962; 83605; 83735; 85025; 85027; 85610; 85730; 86644; 86850; 86900; 86920; 86922; 87040; 87070; 87075; 87077; 87086; 87101; 87186; 87205; 87640; 88304; 88305; 88312; 93005; 94762; 97162; 97166; 97530; J7030; J7040; J7050; J7120; P9016; Q9967; A4216; G8981; G8982; G8987; G8988; J0295

== ENCOUNTER 2017-11-14 14:45 | Inpatient (IN) | payer MEDICARE, SELFPAY ==
--- NOTE | 2017-11-14 14:45 | DT_ITS ---
This patient was seen during an EMR downtime November 10, 2017 - November 17, 2017. This patient may have a combination of paper and electronic documentation or all paper documentation. All documentation is viewable within the e-chart portion of [facility] for each patient visit.
--- NOTE | 2017-11-14 14:45 | DT_ITS ---
This patient was seen during an EMR downtime November 10, 2017 - November 17, 2017. This patient may have a combination of paper and electronic documentation or all paper documentation. All documentation is viewable within the e-chart portion of [facility] for each patient visit.
[2017-11-14 15:45] VITALS: BMI 66.4; BMI 66.5
[2017-11-17] MEDS: Nystatin Powder 15gm Bottle 1 APPLIC TOPICAL (06:00)
[2017-11-17] MEDS: Polyethylene Glycol 3350 17 GM PACKET PO (06:00)
[2017-11-17] MEDS: Furosemide 20 MG Tablet PO ×3 (06:00→14:47)
[2017-11-17] MEDS: Enoxaparin 40 MG/0.4 ML Syringe SC (06:00)
[2017-11-17] MEDS: AcetaZOLAMIDE 250 MG Tablet 125 MG PO ×4 (06:00→20:58)
[2017-11-17] MEDS: dilTIAZem CD 120 MG Capsule PO ×2 (06:00→17:26)
[2017-11-17] MEDS: Iron Polysaccharide Complex 150 MG CAPSULE PO ×2 (06:00→17:26)
[2017-11-17] MEDS: Pantoprazole Sodium 40 MG Tablet PO (06:00)
[2017-11-17] MEDS: Amox/Clavulanate 875 MG Tablet PO ×2 (08:00→17:26)
--- NOTE | 2017-11-17 15:20 | CHAPLAIN ---
Type of Pastoral Visit ___ Initial Visit _x__ Follow-up Visit ___ On-call Visit ___ General Patient Visit ___ Spiritual Assessment ___ Family Conference ___ Bereavement ___ Rapid Response ___ Code Blue ___ Other (describe below) Pastoral Care Referral From _x__ Patient ___ Family ___ Nurse ___ Physician ___ [employer] Driver ___ Trials Manager ___ Other (describe below) Sacrament/Intervention _x__ Active listening ___ Anointing ___ Uatsdin ___ Bereavement ___ Communion ___ Shiela exploration ___ _x__ Life review _x__ Prayer ___ Reconciliation ___ Sacrament of Sick _x__ Supportive presence ___ Wedding ___ Other (describe below) Pastoral Comments
[2017-11-17 16:38] VITALS: PULSE 68
[2017-11-17] MEDS: Metoprolol(XL)Succ 25 MG Tablet PO (16:38)
[2017-11-17 17:01] LABS: Bedside Glucose 139 mg/dL (70-110)
[2017-11-17 19:50] VITALS: O2SAT 92
[2017-11-17 21:05] LABS: Bedside Glucose 150 mg/dL (70-110)
[2017-11-18] MEDS: dilTIAZem CD 120 MG Capsule PO ×2 (05:42→17:39)
[2017-11-18 05:43] VITALS: BP 111/61; PULSE 60
[2017-11-18] MEDS: Metoprolol(XL)Succ 25 MG Tablet PO (05:43)
[2017-11-18] MEDS: Nystatin Powder 15gm Bottle 1 APPLIC TOPICAL (05:43)
[2017-11-18] MEDS: Pantoprazole Sodium 40 MG Tablet PO (05:43)
[2017-11-18] MEDS: AcetaZOLAMIDE 250 MG Tablet 125 MG PO ×3 (05:44→21:18)
[2017-11-18] MEDS: Enoxaparin 40 MG/0.4 ML Syringe SC ×2 (05:46→05:54)
--- NOTE | 2017-11-18 05:52 | CPS ---
pt wears o2 per nasal cannula at night.
[2017-11-18] MEDS: Furosemide 20 MG Tablet PO ×2 (05:54→14:27)
[2017-11-18] MEDS: Iron Polysaccharide Complex 150 MG CAPSULE PO ×2 (05:55→17:39)
--- NOTE | 2017-11-18 06:12 | NURSING ---
Code status discussed with pt. Pt wishes to remain a DNRCC-A. Signature on file.
[2017-11-18 06:55] LABS: Bedside Glucose 116 mg/dL (70-110)
[2017-11-18] MEDS: Amox/Clavulanate 875 MG Tablet PO ×2 (08:33→17:39)
[2017-11-18] MEDS: Acetaminophen 500 MG Tablet 1000 MG PO (08:36)
[2017-11-18 09:50] LABS: Anion Gap 8 (5-15); BUN 11 mg/dL (7-18); BUN/Creat Ratio 12.6 RATIO (10-20); Calcium,Total 8.3 mg/dL (8.5-10.1); Chloride 109 mmol/L (98-107); Creatinine, Serum 0.87 mg/dL (0.55-1.02); EST Glomerular Filtration Rate 73 mL/min (>60); Est Glom Filt Rate - Afr Amer 88 mL/min (>60); Glucose 116 mg/dL (74-106); Potassium 3.5 mmol/L (3.5-5.1); Sodium Level 144 mmol/L (136-145)
[2017-11-18 10:00] VITALS: PULSE 57; RESP 18; O2SAT 96
[2017-11-18 11:36] LABS: Bedside Glucose 140 mg/dL (70-110)
--- NOTE | 2017-11-18 11:59 | NURSING ---
PT DRESSING DONE BY ZHENG MORA WITH HELP BY THIS NURSE. THIS NURSE CHANGED PT BED LINEN AND GOWN. THERAPY IN ROOM.
--- NOTE | 2017-11-18 12:06 | NURSING ---
ADMITTING INTERVIEWER reported to this nurse that patient has a stage I pressure injury to the left heel. NO for mepilex dressing to left heel and heel boots.
[2017-11-18 15:44] VITALS: BP 113/55; PULSE 54; RESP 16; TEMP 37.1; O2SAT 90
[2017-11-18 16:55] LABS: Bedside Glucose 124 mg/dL (70-110)
[2017-11-18 17:38] LABS: Absolute Lymphocyte Count 0.66 X10^3/ul (0.83-4.51); Absolute Neutrophil Count 4.8 X10^3/uL (2.0-7.7); Basophil# 0.01 X10^3/uL; Basophil% 0.2 % (0-1); Eosinophil# 0.25 X10^3/uL; Hematocrit 27.4 % (37-47); Hemoglobin 8.1 g/dl (12.0-15.0); Lymphocyte # 0.66 X10^3/ul (4.0); Lymphocyte % 10.7 % (19-41); Mean Corp Hgb Conc 29.6 g/gl (32-36); Mean Corpuscular Volume 91.3 fL (81-99); Mean Platelet Vol. 8.7 fl (6.2-12.0); Monocyte# 0.42 X10^3/uL; Monocyte% 6.8 % (0-10); Neutrophil # 4.81 X10^3/uL (2.7-7.7); Neutrophil % 77.7 % (47-70); POSITIVE COUNT NO; POSITIVE DIFFERENTIAL NO; POSITIVE MORPHOLOGY NO; Platelet Count 169 K/mm3 (150-450); RBC Distribution Width SD 54.5 fl (35.1-43.9); White Blood Count 6.2 K/mm3 (4.4-11.0)
[2017-11-18 17:50] VITALS: PULSE 64
[2017-11-18 21:11] LABS: Bedside Glucose 170 mg/dL (70-110)
[2017-11-19 02:05] VITALS: O2SAT 95
[2017-11-19] MEDS: dilTIAZem CD 120 MG Capsule PO ×2 (05:36→17:26)
[2017-11-19] MEDS: Iron Polysaccharide Complex 150 MG CAPSULE PO ×2 (05:37→17:26)
[2017-11-19] MEDS: AcetaZOLAMIDE 250 MG Tablet 125 MG PO ×3 (05:37→19:54)
[2017-11-19 05:38] VITALS: BP 116/63; PULSE 64
[2017-11-19] MEDS: Furosemide 20 MG Tablet PO ×2 (05:38→15:19)
[2017-11-19] MEDS: Metoprolol(XL)Succ 25 MG Tablet PO (05:38)
[2017-11-19] MEDS: Enoxaparin 40 MG/0.4 ML Syringe SC (05:38)
[2017-11-19] MEDS: Nystatin Powder 15gm Bottle 1 APPLIC TOPICAL ×2 (05:38→19:52)
[2017-11-19] MEDS: Pantoprazole Sodium 40 MG Tablet PO (05:38)
[2017-11-19 07:11] LABS: Bedside Glucose 124 mg/dL (70-110)
--- NOTE | 2017-11-19 07:25 | NURSING ---
Dressing to upper left inner thigh changed this morning with assist of 2 lining layer and this nurse. Pt tolerated well and was repositioned for comfort afterwards. Call light within reach, continuing to monitor.
[2017-11-19] MEDS: Amox/Clavulanate 875 MG Tablet PO ×2 (07:55→17:25)
[2017-11-19 07:59] VITALS: O2SAT 95
[2017-11-19 10:00] VITALS: PULSE 72; RESP 18; O2SAT 96
[2017-11-19 11:26] LABS: Bedside Glucose 172 mg/dL (70-110)
[2017-11-19] MEDS: Insulin Lispro 100 UNIT/ML INSULN.PEN SQ (11:46)
--- NOTE | 2017-11-19 14:53 | CASEMGMT ---
Plan of care meeting held. Resident present as well as resident spouse. No discharge date set at this time. Resident to continue with further care and treatment on the Transitional Care Unit at this time. Resident plans to discharge home with spouse at time of discharge. Support given. Will continue to follow. Marion GARCIA, STONEWORKING BELT SANDER
[2017-11-19 15:32] VITALS: BP 147/69; PULSE 63; RESP 28; TEMP 36.2; O2SAT 95
[2017-11-19 17:00] LABS: Bedside Glucose 117 mg/dL (70-110)
[2017-11-19 17:30] LABS: Bedside Glucose 144 mg/dL (70-110)
[2017-11-19 21:01] LABS: Bedside Glucose 175 mg/dL (70-110)
[2017-11-20 06:14] VITALS: BP 100/50; PULSE 65
[2017-11-20] MEDS: Pantoprazole Sodium 40 MG Tablet PO (06:14)
[2017-11-20] MEDS: Metoprolol(XL)Succ 25 MG Tablet PO (06:14)
[2017-11-20] MEDS: AcetaZOLAMIDE 250 MG Tablet 125 MG PO ×3 (06:15→20:26)
[2017-11-20] MEDS: dilTIAZem CD 120 MG Capsule PO ×2 (06:16→17:36)
[2017-11-20] MEDS: Furosemide 20 MG Tablet PO ×2 (06:16→13:48)
[2017-11-20] MEDS: Iron Polysaccharide Complex 150 MG CAPSULE PO ×2 (06:16→17:36)
[2017-11-20] MEDS: Nystatin Powder 15gm Bottle 1 APPLIC TOPICAL ×2 (06:17→17:37)
[2017-11-20] MEDS: Enoxaparin 40 MG/0.4 ML Syringe SC (06:17)
[2017-11-20 06:56] LABS: Bedside Glucose 120 mg/dL (70-110)
[2017-11-20 07:00] VITALS: PULSE 65; RESP 16; O2SAT 96
[2017-11-20] MEDS: Amox/Clavulanate 875 MG Tablet PO ×2 (08:47→17:36)
[2017-11-20 08:55] VITALS: O2SAT 98
[2017-11-20 11:15] LABS: Bedside Glucose 139 mg/dL (70-110)
--- NOTE | 2017-11-20 15:20 | MDS.RN ---
Pain interview for [place] 11/21/17 completed.
[2017-11-20 15:34] VITALS: BP 130/62; PULSE 66; RESP 16; TEMP 37.2; O2SAT 95
[2017-11-20 16:55] LABS: Bedside Glucose 117 mg/dL (70-110)
--- NOTE | 2017-11-20 17:00 | NURSING ---
Dressing changed per doctor order, this nurse put errol wrap around wound to secure wound in place.
[2017-11-20 20:46] LABS: Bedside Glucose 153 mg/dL (70-110)
[2017-11-21 05:13] VITALS: BP 112/63; PULSE 58
[2017-11-21] MEDS: Furosemide 20 MG Tablet PO ×2 (05:13→16:52)
[2017-11-21] MEDS: AcetaZOLAMIDE 250 MG Tablet 125 MG PO ×3 (05:13→20:23)
[2017-11-21] MEDS: Pantoprazole Sodium 40 MG Tablet PO (05:13)
[2017-11-21] MEDS: Metoprolol(XL)Succ 25 MG Tablet PO (05:13)
[2017-11-21] MEDS: Iron Polysaccharide Complex 150 MG CAPSULE PO ×2 (05:14→16:54)
[2017-11-21] MEDS: Nystatin Powder 15gm Bottle 1 APPLIC TOPICAL ×2 (05:14→16:54)
[2017-11-21] MEDS: dilTIAZem CD 120 MG Capsule PO ×2 (05:14→16:53)
[2017-11-21] MEDS: Enoxaparin 40 MG/0.4 ML Syringe SC (05:15)
[2017-11-21 05:59] LABS: Absolute Lymphocyte Count 1.06 X10^3/ul (0.83-4.51); Absolute Neutrophil Count 5.2 X10^3/uL (2.0-7.7); Basophil# 0.02 X10^3/uL; Basophil% 0.3 % (0-1); Eosinophil# 0.23 X10^3/uL; Eosinophils% 3.3 % (0-5); Hematocrit 28.9 % (37-47); Hemoglobin 8.5 g/dl (12.0-15.0); Lymphocyte # 1.06 X10^3/ul (4.0); Lymphocyte % 15.3 % (19-41); Mean Corp Hgb Conc 29.4 g/gl (32-36); Mean Corpuscular Volume 91.7 fL (81-99); Mean Platelet Vol. 8.5 fl (6.2-12.0); Monocyte# 0.43 X10^3/uL; Monocyte% 6.2 % (0-10); Neutrophil # 5.16 X10^3/uL (2.7-7.7); Neutrophil % 74.5 % (47-70); Platelet Count 210 K/mm3 (150-450); RBC Distribution Width CV 16.2 % (11.6-14.6); RBC Distribution Width SD 54.1 fl (35.1-43.9); Red Blood Count 3.15 M/mm3 (4.2-5.4); White Blood Count 6.9 K/mm3 (4.4-11.0)
[2017-11-21 06:07] LABS: POSITIVE COUNT NO; POSITIVE DIFFERENTIAL NO; POSITIVE MORPHOLOGY NO
[2017-11-21 06:20] LABS: Anion Gap 7 (5-15); BUN 11 mg/dL (7-18); BUN/Creat Ratio 12.8 RATIO (10-20); Calcium,Total 8.1 mg/dL (8.5-10.1); Chloride 106 mmol/L (98-107); Creatinine, Serum 0.86 mg/dL (0.55-1.02); EST Glomerular Filtration Rate 74 mL/min (>60); Est Glom Filt Rate - Afr Amer 89 mL/min (>60); Estimated Creatinine Clearance 54.96 ml/min; Glucose 110 mg/dL (74-106); Potassium 3.5 mmol/L (3.5-5.1); Sodium Level 142 mmol/L (136-145)
[2017-11-21 06:47] VITALS: PULSE 58; RESP 20; O2SAT 99
[2017-11-21 06:51] VITALS: O2SAT 99
[2017-11-21 06:51] LABS: Bedside Glucose 130 mg/dL (70-110)
[2017-11-21] MEDS: Amox/Clavulanate 875 MG Tablet PO ×2 (08:16→16:52)
[2017-11-21 11:16] LABS: Bedside Glucose 150 mg/dL (70-110)
--- NOTE | 2017-11-21 13:24 | CASEMGMT ---
Brief interview for mental status (BIMS) and resident mood interview (PHQ-9) completed on this day. BIMS score 15/15. PHQ-9 score 02/02.
[2017-11-21 15:20] VITALS: BP 136/84; PULSE 65; RESP 16; TEMP 36.6; O2SAT 92
[2017-11-21 17:01] LABS: Bedside Glucose 115 mg/dL (70-110)
[2017-11-21 20:51] LABS: Bedside Glucose 145 mg/dL (70-110)
[2017-11-22] MEDS: Enoxaparin 40 MG/0.4 ML Syringe SC (06:17)
[2017-11-22] MEDS: Furosemide 20 MG Tablet PO ×2 (06:17→15:17)
[2017-11-22 06:18] VITALS: BP 114/50; PULSE 60
[2017-11-22] MEDS: AcetaZOLAMIDE 250 MG Tablet 125 MG PO ×3 (06:18→19:47)
[2017-11-22] MEDS: Metoprolol(XL)Succ 25 MG Tablet PO (06:18)
[2017-11-22] MEDS: Pantoprazole Sodium 40 MG Tablet PO (06:18)
[2017-11-22] MEDS: Iron Polysaccharide Complex 150 MG CAPSULE PO ×2 (06:19→18:14)
[2017-11-22] MEDS: dilTIAZem CD 120 MG Capsule PO ×2 (06:19→18:14)
[2017-11-22] MEDS: Nystatin Powder 15gm Bottle 1 APPLIC TOPICAL ×2 (06:23→18:17)
[2017-11-22 06:56] LABS: Bedside Glucose 129 mg/dL (70-110)
[2017-11-22 07:00] VITALS: PULSE 60; RESP 16; O2SAT 92
[2017-11-22 07:35] VITALS: O2SAT 90
[2017-11-22] MEDS: Tuberculin,Purif.prot.deriv. 50 TU/ML Vial 5 ML ID (11:38)
[2017-11-22 11:50] LABS: Bedside Glucose 129 mg/dL (70-110)
[2017-11-22 15:42] VITALS: BP 127/61; PULSE 63; RESP 14; TEMP 36.6; O2SAT 98
--- NOTE | 2017-11-22 16:30 | NURSING ---
Pt catheter leaking around urethra. Flushed with 30cc, patient tolerated well. During routine dressing change, catheter fell out of urethra. 18f randle reinserted per sterile technique, patient tolerated well. 600cc clear, light yellow urine return noted. Catheter secured with stat lock.
[2017-11-22 17:01] LABS: Bedside Glucose 176 mg/dL (70-110)
--- NOTE | 2017-11-22 17:17 | NURSING ---
Pt. has white, cheesy, thick discharge from vaginal area with yeast-like smell. Dr. Branch made aware, NO for diflucan 150mg PO x1.
[2017-11-22] MEDS: Insulin Lispro 100 UNIT/ML INSULN.PEN SQ (18:06)
[2017-11-22] MEDS: FLUCONAZOLE 150 MG TABLET PO (19:46)
[2017-11-22] MEDS: Acetaminophen 500 MG Tablet 1000 MG PO (20:29)
[2017-11-22 21:16] LABS: Bedside Glucose 144 mg/dL (70-110)
[2017-11-23 04:58] VITALS: PULSE 74
[2017-11-23] MEDS: Metoprolol(XL)Succ 25 MG Tablet PO (04:58)
[2017-11-23] MEDS: Nystatin Powder 15gm Bottle 1 APPLIC TOPICAL ×2 (04:59→18:30)
[2017-11-23] MEDS: AcetaZOLAMIDE 250 MG Tablet 125 MG PO ×3 (04:59→20:09)
[2017-11-23] MEDS: Enoxaparin 40 MG/0.4 ML Syringe SC (04:59)
[2017-11-23] MEDS: Pantoprazole Sodium 40 MG Tablet PO (04:59)
[2017-11-23] MEDS: dilTIAZem CD 120 MG Capsule PO ×2 (05:00→17:46)
[2017-11-23] MEDS: Furosemide 20 MG Tablet PO ×2 (05:00→13:39)
[2017-11-23] MEDS: Iron Polysaccharide Complex 150 MG CAPSULE PO ×2 (05:00→17:46)
[2017-11-23 06:50] LABS: Bedside Glucose 142 mg/dL (70-110)
[2017-11-23 08:00] VITALS: O2SAT 91
[2017-11-23 11:21] LABS: Bedside Glucose 146 mg/dL (70-110)
[2017-11-23 13:00] VITALS: PULSE 61; RESP 18; O2SAT 96
[2017-11-23 15:10] VITALS: BP 127/70; PULSE 64; RESP 16; TEMP 36.9; O2SAT 99
[2017-11-23 16:50] LABS: Bedside Glucose 111 mg/dL (70-110)
[2017-11-23 21:06] LABS: Bedside Glucose 131 mg/dL (70-110)
[2017-11-23 22:01] LABS: Bedside Glucose 145 mg/dL (70-110)
[2017-11-23 22:12] LABS: Bedside Glucose 112 mg/dL (70-110)
[2017-11-23 22:13] LABS: Bedside Glucose 122 mg/dL (70-110)
[2017-11-24] MEDS: Iron Polysaccharide Complex 150 MG CAPSULE PO ×2 (05:31→17:08)
[2017-11-24] MEDS: Enoxaparin 40 MG/0.4 ML Syringe SC (05:31)
[2017-11-24] MEDS: Furosemide 20 MG Tablet PO ×2 (05:31→14:48)
[2017-11-24] MEDS: Nystatin Powder 15gm Bottle 1 APPLIC TOPICAL ×2 (05:32→17:08)
[2017-11-24] MEDS: dilTIAZem CD 120 MG Capsule PO ×2 (05:32→17:08)
[2017-11-24] MEDS: AcetaZOLAMIDE 250 MG Tablet 125 MG PO ×3 (05:32→20:18)
[2017-11-24 05:33] VITALS: PULSE 72
[2017-11-24] MEDS: Pantoprazole Sodium 40 MG Tablet PO (05:33)
[2017-11-24] MEDS: Metoprolol(XL)Succ 25 MG Tablet PO (05:33)
[2017-11-24 06:31] LABS: Bedside Glucose 140 mg/dL (70-110)
[2017-11-24 06:41] VITALS: O2SAT 98
[2017-11-24 11:11] LABS: Bedside Glucose 156 mg/dL (70-110)
[2017-11-24] MEDS: Insulin Lispro 100 UNIT/ML INSULN.PEN SQ (12:47)
[2017-11-24 15:20] VITALS: BP 122/65; PULSE 63; RESP 16; TEMP 37; O2SAT 95
--- NOTE | 2017-11-24 16:39 | CHAPLAIN ---
Type of Pastoral Visit ___ Initial Visit _x__ Follow-up Visit ___ On-call Visit ___ General Patient Visit ___ Spiritual Assessment ___ Family Conference ___ Bereavement ___ Rapid Response ___ Code Blue ___ Other (describe below) Pastoral Care Referral From _x__ Patient ___ Family ___ Nurse ___ Physician ___ Director [employer] ___ Construction Safety Consultant ___ Other (describe below) Sacrament/Intervention _x__ Active listening ___ Anointing ___ Adventism ___ Bereavement ___ Communion ___ Shiela exploration ___ ___ Life review _x__ Prayer ___ Reconciliation ___ Sacrament of Sick _x__ Supportive presence ___ Wedding ___ Other (describe below) Pastoral Comments spouse is with patient; spouse is talkative and welcoming of support for himself too; pt asks for continual prayer; pt presents a positive attitude about her condition and improvement
[2017-11-24 16:50] LABS: Bedside Glucose 106 mg/dL (70-110)
[2017-11-24 21:11] LABS: Bedside Glucose 157 mg/dL (70-110)
[2017-11-25] MEDS: Enoxaparin 40 MG/0.4 ML Syringe SC (05:39)
[2017-11-25] MEDS: Nystatin Powder 15gm Bottle 1 APPLIC TOPICAL ×2 (05:39→17:28)
[2017-11-25 05:40] VITALS: BP 117/64; PULSE 58
[2017-11-25] MEDS: AcetaZOLAMIDE 250 MG Tablet 125 MG PO ×3 (05:40→20:17)
[2017-11-25] MEDS: Furosemide 20 MG Tablet PO ×2 (05:40→13:23)
[2017-11-25] MEDS: dilTIAZem CD 120 MG Capsule PO ×2 (05:40→17:28)
[2017-11-25] MEDS: Metoprolol(XL)Succ 25 MG Tablet PO (05:40)
[2017-11-25] MEDS: Iron Polysaccharide Complex 150 MG CAPSULE PO ×2 (05:40→17:28)
[2017-11-25] MEDS: Pantoprazole Sodium 40 MG Tablet PO (05:44)
[2017-11-25 06:51] LABS: Bedside Glucose 140 mg/dL (70-110)
[2017-11-25 11:00] LABS: Bedside Glucose 181 mg/dL (70-110)
[2017-11-25] MEDS: Insulin Lispro 100 UNIT/ML INSULN.PEN SQ (11:59)
[2017-11-25 13:23] VITALS: O2SAT 94
[2017-11-25 13:58] VITALS: PULSE 71; RESP 18; O2SAT 96
[2017-11-25 14:34] LABS: Bedside Glucose 154 mg/dL (70-110)
[2017-11-25 14:34] LABS: Bedside Glucose 152 mg/dL (70-110)
[2017-11-25 14:34] LABS: Bedside Glucose 114 mg/dL (70-110)
[2017-11-25 14:34] LABS: Bedside Glucose 106 mg/dL (70-110)
[2017-11-25 15:25] VITALS: BP 141/63; PULSE 83; RESP 20; TEMP 36.2; O2SAT 95
[2017-11-25 17:05] LABS: Bedside Glucose 118 mg/dL (70-110)
[2017-11-25 20:56] LABS: Bedside Glucose 174 mg/dL (70-110)
[2017-11-26 05:45] VITALS: BP 114/60; PULSE 62
[2017-11-26] MEDS: dilTIAZem CD 120 MG Capsule PO ×2 (05:45→18:41)
[2017-11-26] MEDS: AcetaZOLAMIDE 250 MG Tablet 125 MG PO ×3 (05:45→20:39)
[2017-11-26] MEDS: Furosemide 20 MG Tablet PO ×2 (05:45→13:36)
[2017-11-26] MEDS: Pantoprazole Sodium 40 MG Tablet PO (05:45)
[2017-11-26] MEDS: Metoprolol(XL)Succ 25 MG Tablet PO (05:45)
[2017-11-26] MEDS: Nystatin Powder 15gm Bottle 1 APPLIC TOPICAL ×2 (05:46→18:42)
[2017-11-26] MEDS: Enoxaparin 40 MG/0.4 ML Syringe SC (05:47)
[2017-11-26] MEDS: Iron Polysaccharide Complex 150 MG CAPSULE PO ×2 (05:49→18:41)
[2017-11-26] MEDS: Insulin Lispro 100 UNIT/ML INSULN.PEN SQ ×2 (06:38→11:43)
[2017-11-26 06:50] LABS: Bedside Glucose 153 mg/dL (70-110)
[2017-11-26 06:52] VITALS: PULSE 60; RESP 20; O2SAT 95
[2017-11-26 08:15] VITALS: O2SAT 96
[2017-11-26 11:25] LABS: Bedside Glucose 215 mg/dL (70-110)
--- NOTE | 2017-11-26 12:16 | PCM.PN.RX ---
<Kunal Hendrickson D - Last Filed: 11/26/17 12:16> Progress Note - Pharmacy Subjective: TCU Admission Objective: Allergies latex Allergy (Verified 08/05/17 21:19) Rash levofloxacin [From Levaquin] Adverse Reaction (Verified 08/05/17 21:19) SPEEDS UP MY HEART AND SHUTS DOWN MY KIDNEYS mushrooms Allergy (Uncoded 08/05/17 21:19) Anaphylaxis STRAWBERRIES Allergy (Uncoded 08/05/17 21:19) Rash Current Medications Generic Name Dose Route Start Last Admin Trade Name Freq PRN Reason Stop Dose Admin Acetaminophen 1,000 mg 11/14/17 17:11 11/22/17 20:29 Tylenol PO 1,000 mg Q8H PRN Administration .MILD PAIN Acetazolamide 125 mg 11/14/17 22:00 11/26/17 05:45 Diamox PO 125 mg TID ANIA Administration Dextrose 0 gm 11/14/17 17:21 D50w Syringe IV X1 PRN Hypoglycemia Protocol Diltiazem HCl 120 mg 11/14/17 18:00 11/26/17 05:45 Cardizem Cd PO 120 mg BID ANIA Administration Emollient Ointment 1 applic 11/23/17 18:00 11/26/17 05:46 Eucerin Intensive Repair TOPICAL 1 applicatio BID ANIA Administration Protocol Enoxaparin Sodium 40 mg 11/15/17 06:00 11/26/17 05:47 Lovenox SC 40 mg DAILY@0600 ANIA Administration Furosemide 20 mg 11/15/17 06:00 11/26/17 05:45 Lasix PO 20 mg BIDLX ANIA Administration Glucagon 1 mg 11/14/17 17:21 IM .X1 PRN Hypoglycemia Insulin Human Lispro 0 unit 11/15/17 06:45 11/26/17 11:43 Humalog Kwikpen (Bkc) SQ 2 u TIDAC ANIA Administration Protocol Metoprolol Succinate 25 mg 11/15/17 06:00 11/26/17 05:45 Toprol Xl (Beta Vikki) PO 25 mg DAILY ANIA Administration Nystatin 1 applic 11/14/17 18:00 11/26/17 05:46 Mycostatin Powder TOPICAL 1 applicatio BID ANIA Administration Pantoprazole Sodium 40 mg 11/15/17 06:00 11/26/17 05:45 Protonix PO 40 mg DAILY ANIA Administration Polyethylene Glycol 17 gm 11/15/17 06:00 11/26/17 05:46 Miralax PO Not Given DAILY ANIA Polysaccharide Iron Complex 150 mg 11/16/17 18:00 11/26/17 05:49 Ferrex 150 PO 150 mg BID ANIA Administration Sodium Hypochlorite 1 applic 11/25/17 18:00 11/26/17 05:47 Dakins Solution 0.25% (1/2 Strength) TOPICAL 1 applicatio BID ANIA Administration Protocol Vital Signs Temp Pulse Resp BP Pulse Ox 97.1 F L 60 20 H 114/60 96 11/25/17 15:25 11/26/17 06:52 11/26/17 06:52 11/26/17 05:45 11/26/17 08:15 Oxygen Flow Rate (L/min) 3 Oxygen Delivery Method Nasal Cannula Weight: 140.2 kg Body Mass Index (BMI) 66.4 Sodium 142 mmol/L (136-145) 11/21/17 05:10 Potassium 3.5 mmol/L (3.5-5.1) 11/21/17 05:10 Chloride 106 mmol/L (98-107) 11/21/17 05:10 Carbon Dioxide 29.0 mmol/L (21.0-32.0) 11/21/17 05:10 Anion Gap 7 (5-15) 11/21/17 05:10 BUN 11 mg/dL (7-18) 11/21/17 05:10 Creatinine 0.86 mg/dL (0.55-1.02) 11/21/17 05:10 Est GFR (MDRD) Af Amer 89 mL/min (>60) 11/21/17 05:10 Est GFR (MDRD) Non-Af 74 mL/min (>60) 11/21/17 05:10 BUN/Creatinine Ratio 12.8 RATIO (10-20) 11/21/17 05:10 Glucose 110 mg/dL (74-106) H 11/21/17 05:10 Random Vancomycin Cancelled 11/14/17 05:15 Assessment/Plan: 1) Pain APAP for mild pain. Continue to monitor daily pain scores, prn medication use. 2) DM2 Insulin SS with meals. Avg BGT < 200 mg/dL. Continue to monitor BGT, s/s hyper/hypoglycemia. 3) Metabolic Alkalosis Acetazolamide 3x daily. Continue to monitor electrolytes. 4) CHF/AFib Diltiazem, metoprolol, furosemide. Continue to monitor BP/HR, renal function, electrolytes. 5) DVT PPx Enoxaparin daily. Continue to monitor s/s bleeding/clot. 6) Nutrition Fe. Continue to monitor clinically. 7) GI Pantoprazole daily. Continue to monitor s/s GI distress. 8) Derm Nystatin, emollient topically. Continue to monitor clinically. Psychotropic Medications: None Unnecessary Medications: None Bowel Regimen: 9) PEG, last BM yesterday. Continue to monitor for constipation/diarrhea. Date of Note:: 11/26/17 - Provider Comments Provider responsibility: Provider responsible to enter orders to implement recommendations <Jovani Branch Chi - Last Filed: 11/26/17 16:10> Progress Note - Pharmacy Subjective: [] Objective: Allergies latex Allergy (Verified 08/05/17 21:19) Rash levofloxacin [From Levaquin] Adverse Reaction (Verified 08/05/17 21:19) SPEEDS UP MY HEART AND SHUTS DOWN MY KIDNEYS mushrooms Allergy (Uncoded 08/05/17 21:19) Anaphylaxis STRAWBERRIES Allergy (Uncoded 08/05/17 21:19) Rash Current Medications Generic Name Dose Route Start Last Admin Trade Name Freq PRN Reason Stop Dose Admin Acetaminophen 1,000 mg 11/14/17 17:11 11/22/17 20:29 Tylenol PO 1,000 mg Q8H PRN Administration .MILD PAIN Acetazolamide 125 mg 11/14/17 22:00 11/26/17 13:36 Diamox PO 125 mg TID ANIA Administration Dextrose 0 gm 11/14/17 17:21 D50w Syringe IV X1 PRN Hypoglycemia Protocol Diltiazem HCl 120 mg 11/14/17 18:00 11/26/17 05:45 Cardizem Cd PO 120 mg BID ANIA Administration Emollient Ointment 1 applic 11/23/17 18:00 11/26/17 05:46 Eucerin Intensive Repair TOPICAL 1 applicatio BID ANIA Administration Protocol Enoxaparin Sodium 40 mg 11/15/17 06:00 11/26/17 05:47 Lovenox SC 40 mg DAILY@0600 ANIA Administration Furosemide 20 mg 11/15/17 06:00 11/26/17 13:36 Lasix PO 20 mg BIDLX [facility] Administration Glucagon 1 mg 11/14/17 17:21 IM .X1 PRN Hypoglycemia Ampicillin Sodium/Sulbactam 112 mls @ 150 mls/hr 11/26/17 16:00 Sodium 3 gm/ Sodium Chloride IV Q6 [facility] Insulin Human Lispro 0 unit 11/15/17 06:45 11/26/17 11:43 Humalog Kwikpen (Bkc) SQ 2 u TIDAC [facility] Administration Protocol Metoprolol Succinate 25 mg 11/15/17 06:00 11/26/17 05:45 Toprol Xl (Beta Vikki) PO 25 mg DAILY [facility] Administration Nystatin 1 applic 11/14/17 18:00 11/26/17 05:46 Mycostatin Powder TOPICAL 1 applicatio BID [facility] Administration Pantoprazole Sodium 40 mg 11/15/17 06:00 11/26/17 05:45 Protonix PO 40 mg DAILY ANIA Administration Polyethylene Glycol 17 gm 11/15/17 06:00 11/26/17 05:46 Miralax PO Not Given DAILY [facility] Polysaccharide Iron Complex 150 mg 11/16/17 18:00 11/26/17 05:49 Ferrex 150 PO 150 mg BID ANIA Administration Sodium Hypochlorite 1 applic 11/25/17 18:00 11/26/17 05:47 Dakins Solution 0.25% (1/2 Strength) TOPICAL 1 applicatio BID ANIA Administration Protocol Vital Signs Temp Pulse Resp BP Pulse Ox 97.7 F L 67 20 H 111/48 L 99 11/26/17 15:09 11/26/17 15:09 11/26/17 15:09 11/26/17 15:09 11/26/17 15:09 Oxygen Flow Rate (L/min) 2 Oxygen Delivery Method Nasal Cannula Weight: 140.2 kg Body Mass Index (BMI) 66.4 Sodium 142 mmol/L (136-145) 11/21/17 05:10 Potassium 3.5 mmol/L (3.5-5.1) 11/21/17 05:10 Chloride 106 mmol/L (98-107) 11/21/17 05:10 Carbon Dioxide 29.0 mmol/L (21.0-32.0) 11/21/17 05:10 Anion Gap 7 (5-15) 11/21/17 05:10 BUN 11 mg/dL (7-18) 11/21/17 05:10 Creatinine 0.86 mg/dL (0.55-1.02) 11/21/17 05:10 Est GFR (MDRD) Af Amer 89 mL/min (>60) 11/21/17 05:10 Est GFR (MDRD) Non-Af 74 mL/min (>60) 11/21/17 05:10 BUN/Creatinine Ratio 12.8 RATIO (10-20) 11/21/17 05:10 Glucose 110 mg/dL (74-106) H 11/21/17 05:10 Random Vancomycin Cancelled 11/14/17 05:15 Assessment/Plan: Psychotropic Medications: Unnecessary Medications: Bowel Regimen: - Provider Comments Provider responsibility: Provider responsible to enter orders to implement recommendations Provider Comments to Recommendations by Pharmacy: Agree
--- NOTE | 2017-11-26 12:19 | PHA.CONS_ITS ---
<Kunal Hendrickson D - Last Filed: 11/26/17 12:16> Progress Note - Pharmacy Subjective: TCU Admission Objective: Allergies latex Allergy (Verified 08/05/17 21:19) Rash levofloxacin [From Levaquin] Adverse Reaction (Verified 08/05/17 21:19) SPEEDS UP MY HEART AND SHUTS DOWN MY KIDNEYS mushrooms Allergy (Uncoded 08/05/17 21:19) Anaphylaxis STRAWBERRIES Allergy (Uncoded 08/05/17 21:19) Rash Current Medications Generic Name Dose Route Start Last Admin Trade Name Freq PRN Reason Stop Dose Admin Acetaminophen 1,000 mg 11/14/17 17:11 11/22/17 20:29 Tylenol PO 1,000 mg Q8H PRN Administration .MILD PAIN Acetazolamide 125 mg 11/14/17 22:00 11/26/17 05:45 Diamox PO 125 mg TID ANIA Administration Dextrose 0 gm 11/14/17 17:21 D50w Syringe IV X1 PRN Hypoglycemia Protocol Diltiazem HCl 120 mg 11/14/17 18:00 11/26/17 05:45 Cardizem Cd PO 120 mg BID ANIA Administration Emollient Ointment 1 applic 11/23/17 18:00 11/26/17 05:46 Eucerin Intensive Repair TOPICAL 1 applicatio BID ANIA Administration Protocol Enoxaparin Sodium 40 mg 11/15/17 06:00 11/26/17 05:47 Lovenox SC 40 mg DAILY@0600 ANIA Administration Furosemide 20 mg 11/15/17 06:00 11/26/17 05:45 Lasix PO 20 mg BIDLX ANIA Administration Glucagon 1 mg 11/14/17 17:21 IM .X1 PRN Hypoglycemia Insulin Human Lispro 0 unit 11/15/17 06:45 11/26/17 11:43 Humalog Kwikpen (Bkc) SQ 2 u TIDAC ANIA Administration Protocol Metoprolol Succinate 25 mg 11/15/17 06:00 11/26/17 05:45 Toprol Xl (Beta Vikki) PO 25 mg DAILY ANIA Administration Nystatin 1 applic 11/14/17 18:00 11/26/17 05:46 Mycostatin Powder TOPICAL 1 applicatio BID ANIA Administration Pantoprazole Sodium 40 mg 11/15/17 06:00 11/26/17 05:45 Protonix PO 40 mg DAILY ANIA Administration Polyethylene Glycol 17 gm 11/15/17 06:00 11/26/17 05:46 Miralax PO Not Given DAILY ANIA Polysaccharide Iron Complex 150 mg 11/16/17 18:00 11/26/17 05:49 Ferrex 150 PO 150 mg BID ANIA Administration Sodium Hypochlorite 1 applic 11/25/17 18:00 11/26/17 05:47 Dakins Solution 0.25% (1/2 Strength) TOPICAL 1 applicatio BID ANIA Administration Protocol Vital Signs Temp Pulse Resp BP Pulse Ox 97.1 F L 60 20 H 114/60 96 11/25/17 15:25 11/26/17 06:52 11/26/17 06:52 11/26/17 05:45 11/26/17 08:15 Oxygen Flow Rate (L/min) 3 Oxygen Delivery Method Nasal Cannula Weight: 140.2 kg Body Mass Index (BMI) 66.4 Sodium 142 mmol/L (136-145) 11/21/17 05:10 Potassium 3.5 mmol/L (3.5-5.1) 11/21/17 05:10 Chloride 106 mmol/L (98-107) 11/21/17 05:10 Carbon Dioxide 29.0 mmol/L (21.0-32.0) 11/21/17 05:10 Anion Gap 7 (5-15) 11/21/17 05:10 BUN 11 mg/dL (7-18) 11/21/17 05:10 Creatinine 0.86 mg/dL (0.55-1.02) 11/21/17 05:10 Est GFR (MDRD) Af Amer 89 mL/min (>60) 11/21/17 05:10 Est GFR (MDRD) Non-Af 74 mL/min (>60) 11/21/17 05:10 BUN/Creatinine Ratio 12.8 RATIO (10-20) 11/21/17 05:10 Glucose 110 mg/dL (74-106) H 11/21/17 05:10 Random Vancomycin Cancelled 11/14/17 05:15 Assessment/Plan: 1) Pain APAP for mild pain. Continue to monitor daily pain scores, prn medication use. 2) DM2 Insulin SS with meals. Avg BGT < 200 mg/dL. Continue to monitor BGT, s/s hyper/hypoglycemia. 3) Metabolic Alkalosis Acetazolamide 3x daily. Continue to monitor electrolytes. 4) CHF/AFib Diltiazem, metoprolol, furosemide. Continue to monitor BP/HR, renal function , electrolytes. 5) DVT PPx Enoxaparin daily. Continue to monitor s/s bleeding/clot. 6) Nutrition Fe. Continue to monitor clinically. 7) GI Pantoprazole daily. Continue to monitor s/s GI distress. 8) Derm Nystatin, emollient topically. Continue to monitor clinically. Psychotropic Medications: None Unnecessary Medications: None Bowel Regimen: 9) PEG, last BM yesterday. Continue to monitor for constipation/diarrhea. Date of Note:: 11/26/17 - Provider Comments Provider responsibility: Provider responsible to enter orders to implement recommendations <Jovani Branch Chi - Last Filed: 11/26/17 16:10> Progress Note - Pharmacy Subjective: [] Objective: Allergies latex Allergy (Verified 08/05/17 21:19) Rash levofloxacin [From Levaquin] Adverse Reaction (Verified 08/05/17 21:19) SPEEDS UP MY HEART AND SHUTS DOWN MY KIDNEYS mushrooms Allergy (Uncoded 08/05/17 21:19) Anaphylaxis STRAWBERRIES Allergy (Uncoded 08/05/17 21:19) Rash Current Medications Generic Name Dose Route Start Last Admin Trade Name Freq PRN Reason Stop Dose Admin Acetaminophen 1,000 mg 11/14/17 17:11 11/22/17 20:29 Tylenol PO 1,000 mg Q8H PRN Administration .MILD PAIN Acetazolamide 125 mg 11/14/17 22:00 11/26/17 13:36 Diamox PO 125 mg TID ANIA Administration Dextrose 0 gm 11/14/17 17:21 D50w Syringe IV X1 PRN Hypoglycemia Protocol Diltiazem HCl 120 mg 11/14/17 18:00 11/26/17 05:45 Cardizem Cd PO 120 mg BID ANIA Administration Emollient Ointment 1 applic 11/23/17 18:00 11/26/17 05:46 Eucerin Intensive Repair TOPICAL 1 applicatio BID ANIA Administration Protocol Enoxaparin Sodium 40 mg 11/15/17 06:00 11/26/17 05:47 Lovenox SC 40 mg DAILY@0600 ANIA Administration Furosemide 20 mg 11/15/17 06:00 11/26/17 13:36 Lasix PO 20 mg BIDLX [facility] Administration Glucagon 1 mg 11/14/17 17:21 IM .X1 PRN Hypoglycemia Ampicillin Sodium/Sulbactam 112 mls @ 150 mls/hr 11/26/17 16:00 Sodium 3 gm/ Sodium Chloride IV Q6 [facility] Insulin Human Lispro 0 unit 11/15/17 06:45 11/26/17 11:43 Humalog Kwikpen (Bkc) SQ 2 u TIDAC ANIA Administration Protocol Metoprolol Succinate 25 mg 11/15/17 06:00 11/26/17 05:45 Toprol Xl (Beta Vikki) PO 25 mg DAILY [facility] Administration Nystatin 1 applic 11/14/17 18:00 11/26/17 05:46 Mycostatin Powder TOPICAL 1 applicatio BID [facility] Administration Pantoprazole Sodium 40 mg 11/15/17 06:00 11/26/17 05:45 Protonix PO 40 mg DAILY ANIA Administration Polyethylene Glycol 17 gm 11/15/17 06:00 11/26/17 05:46 Miralax PO Not Given DAILY [facility] Polysaccharide Iron Complex 150 mg 11/16/17 18:00 11/26/17 05:49 Ferrex 150 PO 150 mg BID ANIA Administration Sodium Hypochlorite 1 applic 11/25/17 18:00 11/26/17 05:47 Dakins Solution 0.25% (1/2 Strength) TOPICAL 1 applicatio BID ANIA Administration Protocol Vital Signs Temp Pulse Resp BP Pulse Ox 97.7 F L 67 20 H 111/48 L 99 11/26/17 15:09 11/26/17 15:09 11/26/17 15:09 11/26/17 15:09 11/26/17 15:09 Oxygen Flow Rate (L/min) 2 Oxygen Delivery Method Nasal Cannula Weight: 140.2 kg Body Mass Index (BMI) 66.4 Sodium 142 mmol/L (136-145) 11/21/17 05:10 Potassium 3.5 mmol/L (3.5-5.1) 11/21/17 05:10 Chloride 106 mmol/L (98-107) 11/21/17 05:10 Carbon Dioxide 29.0 mmol/L (21.0-32.0) 11/21/17 05:10 Anion Gap 7 (5-15) 11/21/17 05:10 BUN 11 mg/dL (7-18) 11/21/17 05:10 Creatinine 0.86 mg/dL (0.55-1.02) 11/21/17 05:10 Est GFR (MDRD) Af Amer 89 mL/min (>60) 11/21/17 05:10 Est GFR (MDRD) Non-Af 74 mL/min (>60) 11/21/17 05:10 BUN/Creatinine Ratio 12.8 RATIO (10-20) 11/21/17 05:10 Glucose 110 mg/dL (74-106) H 11/21/17 05:10 Random Vancomycin Cancelled 11/14/17 05:15 Assessment/Plan: Psychotropic Medications: Unnecessary Medications: Bowel Regimen: - Provider Comments Provider responsibility: Provider responsible to enter orders to implement recommendations Provider Comments to Recommendations by Pharmacy: Agree
--- NOTE | 2017-11-26 12:31 | CASEMGMT ---
BIMS and PHQ9 interviews completed on this date for MDS assessment. BIMS PHQ9 03/05 RADHA Pelayo
--- NOTE | 2017-11-26 14:58 | NURSING ---
Addendum entered by Nenita Sher 11/26/17 16:47: Pt and Dr. Branch updated on new orders, Dr. Tran stating the pt will be on IV antibiotic 2 weeks to possibly 6 weeks based on what the wound culture shows, N.O. for PICC line. technology applications consultant called, pt and aware. Original Note: Dr. Tran here to see pt
[2017-11-26 15:09] VITALS: BP 111/48; PULSE 67; RESP 20; TEMP 36.5; O2SAT 99
[2017-11-26 16:36] LABS: Bedside Glucose 121 mg/dL (70-110)
--- NOTE | 2017-11-26 19:09 | NURSING ---
Dressing changed Per doctor order, dressing noted to have mild odor and some green/ yellow drainage.
--- NOTE | 2017-11-26 19:10 | NURSING ---
this nurse collected wound specimen and sent to lab. Nenita CALZADA aware
[2017-11-26] MEDS: Acetaminophen 500 MG Tablet 1000 MG PO (20:39)
[2017-11-26] MEDS: 0.9% NaCl IVPB Med Flush (250 mL) 15 ML IV (20:43)
[2017-11-26] MEDS: 0.9% NaCl PICC Flush IV (20:43)
[2017-11-26 22:01] LABS: Bedside Glucose 172 mg/dL (70-110)
[2017-11-27] MEDS: 0.9% NaCl PICC Flush IV ×5 (00:37→23:51)
[2017-11-27 05:42] VITALS: PULSE 73
[2017-11-27] MEDS: AcetaZOLAMIDE 250 MG Tablet 125 MG PO ×3 (05:42→20:50)
[2017-11-27] MEDS: Metoprolol(XL)Succ 25 MG Tablet PO (05:42)
[2017-11-27] MEDS: Iron Polysaccharide Complex 150 MG CAPSULE PO ×2 (05:42→17:23)
[2017-11-27] MEDS: Furosemide 20 MG Tablet PO ×2 (05:42→14:05)
[2017-11-27] MEDS: dilTIAZem CD 120 MG Capsule PO ×2 (05:42→17:22)
[2017-11-27] MEDS: Pantoprazole Sodium 40 MG Tablet PO (05:43)
[2017-11-27] MEDS: Enoxaparin 40 MG/0.4 ML Syringe SC (05:45)
[2017-11-27] MEDS: Nystatin Powder 15gm Bottle 1 APPLIC TOPICAL ×2 (05:45→17:25)
[2017-11-27 05:53] LABS: Anion Gap 8 (5-15); BUN 22 mg/dL (7-18); BUN/Creat Ratio 19.1 RATIO (10-20); Calcium,Total 8.2 mg/dL (8.5-10.1); Chloride 103 mmol/L (98-107); Creatinine, Serum 1.15 mg/dL (0.55-1.02); EST Glomerular Filtration Rate 53 mL/min (>60); Est Glom Filt Rate - Afr Amer 64 mL/min (>60); Glucose 121 mg/dL (74-106); Potassium 3.7 mmol/L (3.5-5.1); Sodium Level 142 mmol/L (136-145)
[2017-11-27 05:54] LABS: Hematocrit 30.9 % (37-47); Hemoglobin 9.2 g/dl (12.0-15.0); Mean Corp Hgb Conc 29.8 g/gl (32-36); Mean Corpuscular Hgb 27.7 pg (27.0-32.0); Mean Corpuscular Volume 93.1 fL (81-99); Mean Platelet Vol. 8.7 fl (6.2-12.0); Platelet Count 235 K/mm3 (150-450); RBC Distribution Width CV 16.4 % (11.6-14.6); RBC Distribution Width SD 53.4 fl (35.1-43.9); Red Blood Count 3.32 M/mm3 (4.2-5.4)
[2017-11-27 05:57] LABS: Scan Indicated on CBC? Y/N NO
[2017-11-27 06:40] VITALS: O2SAT 94
[2017-11-27 06:40] LABS: Bedside Glucose 150 mg/dL (70-110)
--- NOTE | 2017-11-27 06:45 | NURSING ---
Dressing changed to upper left leg per orders.
[2017-11-27] MEDS: Insulin Lispro 100 UNIT/ML INSULN.PEN SQ ×2 (08:21→12:19)
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
[2017-11-27 11:01] LABS: Bedside Glucose 173 mg/dL (70-110)
--- NOTE | 2017-11-27 13:59 | MDS.RN ---
Information for the mds was obtained from review of the clinical record-computer and paper chart documentation due to hospital computers down during lookback period, interview of resident, staff, and direct observation of resident's care.
[2017-11-27 14:31] VITALS: RESP 16
--- NOTE | 2017-11-27 15:00 | NURSING ---
wound photo: left upper medial thigh
--- NOTE | 2017-11-27 15:49 | MDS.RN ---
Pain interview for daniel 11/28/17 completed.
[2017-11-27 15:52] VITALS: BP 131/61; PULSE 76; RESP 16; TEMP 36.1; O2SAT 96
[2017-11-27 17:05] LABS: Bedside Glucose 108 mg/dL (70-110)
[2017-11-27 21:01] LABS: Bedside Glucose 137 mg/dL (70-110)
[2017-11-27] MEDS: 0.9% NaCl IVPB Med Flush (250 mL) 15 ML IV (23:47)
[2017-11-28] MEDS: Iron Polysaccharide Complex 150 MG CAPSULE PO ×2 (05:29→17:52)
[2017-11-28] MEDS: Enoxaparin 40 MG/0.4 ML Syringe SC (05:29)
[2017-11-28] MEDS: dilTIAZem CD 120 MG Capsule PO ×2 (05:29→17:47)
[2017-11-28] MEDS: Pantoprazole Sodium 40 MG Tablet PO (05:29)
[2017-11-28 05:30] VITALS: BP 117/57; PULSE 63
[2017-11-28] MEDS: Metoprolol(XL)Succ 25 MG Tablet PO (05:30)
[2017-11-28] MEDS: Furosemide 20 MG Tablet PO ×2 (05:30→15:00)
[2017-11-28] MEDS: AcetaZOLAMIDE 250 MG Tablet 125 MG PO ×3 (05:31→21:31)
[2017-11-28] MEDS: Nystatin Powder 15gm Bottle 1 APPLIC TOPICAL ×2 (05:33→18:16)
[2017-11-28] MEDS: 0.9% NaCl PICC Flush IV ×5 (05:45→17:56)
[2017-11-28 06:35] LABS: Anion Gap 7 (5-15); BUN 30 mg/dL (7-18); BUN/Creat Ratio 26.5 RATIO (10-20); Calcium,Total 8.5 mg/dL (8.5-10.1); Chloride 101 mmol/L (98-107); Creatinine, Serum 1.13 mg/dL (0.55-1.02); EST Glomerular Filtration Rate 54 mL/min (>60); Est Glom Filt Rate - Afr Amer 65 mL/min (>60); Estimated Creatinine Clearance 41.83 ml/min; Glucose 122 mg/dL (74-106); Potassium 3.8 mmol/L (3.5-5.1); Sodium Level 138 mmol/L (136-145)
[2017-11-28 06:48] LABS: Absolute Lymphocyte Count 1.21 X10^3/ul (0.83-4.51); Absolute Neutrophil Count 3.9 X10^3/uL (2.0-7.7); Basophil# 0.03 X10^3/uL; Basophil% 0.5 % (0-1); Eosinophil# 0.31 X10^3/uL; Eosinophils% 5.2 % (0-5); Hematocrit 32.1 % (37-47); Hemoglobin 9.4 g/dl (12.0-15.0); Lymphocyte # 1.21 X10^3/ul (4.0); Lymphocyte % 20.4 % (19-41); Mean Corp Hgb Conc 29.3 g/gl (32-36); Mean Corpuscular Hgb 26.8 pg (27.0-32.0); Mean Corpuscular Volume 91.5 fL (81-99); Monocyte# 0.51 X10^3/uL; Monocyte% 8.6 % (0-10); Neutrophil # 3.86 X10^3/uL (2.7-7.7); Platelet Count 231 K/mm3 (150-450); RBC Distribution Width CV 16.6 % (11.6-14.6); RBC Distribution Width SD 55.7 fl (35.1-43.9); Red Blood Count 3.51 M/mm3 (4.2-5.4); White Blood Count 5.9 K/mm3 (4.4-11.0)
[2017-11-28 06:49] LABS: POSITIVE COUNT NO; POSITIVE DIFFERENTIAL NO; POSITIVE MORPHOLOGY NO
[2017-11-28 07:15] LABS: Bedside Glucose 130 mg/dL (70-110)
[2017-11-28 10:00] VITALS: PULSE 66; O2SAT 98
[2017-11-28 11:05] LABS: Bedside Glucose 164 mg/dL (70-110)
[2017-11-28] MEDS: Insulin Lispro 100 UNIT/ML INSULN.PEN SQ (11:28)
[2017-11-28 15:44] VITALS: BP 118/72; PULSE 66; RESP 24; TEMP 36.4; O2SAT 97
--- NOTE | 2017-11-28 16:07 | PN.SURG_ITS ---
Subjective: Postop #17 Patient had surgery on 11/11/17 where she underwent surgical preparation left medial thigh and crural area and inguinal area with incision and drainage and excisional debridement necrotizing diabetic abscess (160 cm2). VAC was applied initially. Operative cultures showed Enterococcus faecalis and Anaerobic cocci and Prevotella melaninogenica. She was treated with Vancomycin and Unasyn. Recently she was having some greenish drainage from the wound. She was having difficulty with maintaining a seal with the VAC. At present, she has Dakin's dressing changes. The VAC will be re-applied today. Her wound is being complicated with stool contamination as the patient does not ambulate much. Dr. Melton was consulted for a diverting colostomy. She felt a colostomy at this time would be high risk and would need to be done at a tertiary center and recommended more local measures to keep the wound clean from stool contamination. Over the last couple of days, the wound has improved with better granulation tissue. A wound culture was obtained on 11/26/17 and it showed Gram negative rods thus far. She is currently on Unasyn. - Physical Exam General: Alert, Oriented x3 HEENT: PERRLA, EOMI Neck: Supple Abdomen: Soft, Non-Distended, Obese Extremities: Edema - mild edema in lower extremities. Skin: Ulcer/ Wound - left medial thigh wound showing better granulation tissue. No odor noted. Doing better with Dakin's dressing changes. No bleeding. Neurological: Cranial nerves II-XII grossly intact Psych/Mental Status: Normal Affect, Appropriate Vital Signs Temp Pulse Resp BP Pulse Ox 97.5 F L 66 24 H 118/72 97 11/28/17 15:44 11/28/17 15:44 11/28/17 15:44 11/28/17 15:44 11/28/17 15:44 Oxygen Flow Rate (L/min) 2 Oxygen Delivery Method Nasal Cannula Weight: 309 lb 1.409 oz Body Mass Index (BMI) 66.4 Intake and Output for Last 24 Hours 11/26/17 11/27/17 11/28/17 23:59 23:59 23:59 Intake Total 720 / 720 720 / 720 480 / 480 Output Total 1250 / 1250 1950 / 1950 450 / 450 Balance -530 / -530 -1230 / -1230 30 / 30 Microbiology Past 72 Hours 11/26/17 18:35 Gram Stain - Final Wound - Leg, Left Wound Culture - Preliminary Gram negative zhanna Gram negative zhanna#2 Gram negative zhanna#3 Anaerobic Culture - Preliminary Checking for anaerobes, further studies to follow. Laboratory Tests Past 24 Hrs 11/28/17 11/28/17 05:50 05:50 WBC 5.9 RBC 3.51 L Hgb 9.4 L Hct 32.1 L MCV 91.5 MCH 26.8 L MCHC 29.3 L RDW 16.6 H RDW Differential 55.7 H Plt Count 231 MPV 9.0 Immature Gran % (Auto) 0.300 Neut % (Auto) 65.0 Lymph % (Auto) 20.4 [place] % (Auto) 8.6 Eos % (Auto) 5.2 H Baso % (Auto) 0.5 Absolute Neuts (auto) 3.9 Absolute Lymphs (auto) 1.21 Total Counted Not Reportable Sodium 138 Potassium 3.8 Chloride 101 Carbon Dioxide 30.0 Anion Gap 7 BUN 30 H Creatinine 1.13 H Estim Creat Clear Calc 41.83 Est GFR (MDRD) Af Amer 65 Est GFR (MDRD) Non-Af 54 L BUN/Creatinine Ratio 26.5 H Glucose 122 H Calcium 8.5 POC Glucose 11/28/17 11/28/17 11/27/17 10:56 06:30 20:49 POC Glucose 164 H 130 H 137 H 11/27/17 16:58 POC Glucose 108 Prealbumin 16.0 from 11/27/17. Medical Necessity - Tobacco Use Smoking Status: Former smoker Assessment/Plan All Active Problems CAP (community acquired pneumonia) (Acute) Lower GI bleed (Acute) Acute and chronic respiratory failure with hypoxia (Acute) Acute on chronic diastolic heart failure (Acute) Acute bronchitis with asthma with acute exacerbation (Acute) Shortness of breath (Acute) Acute on chronic diastolic heart failure (Acute) Acute bronchitis (Acute) Atrial fibrillation with RVR (Acute) Otitis externa (Acute) Metabolic alkalosis (Acute) Blood in stool (Acute) Abdominal pain (Resolved) 1. Open surgical diabetic wound left medial thigh and crural area and inguinal area. 2. Diabetes mellitus. 3. History of necrotizing infection. 4. s/p surgical preparation left medial thigh and crural area and inguinal area with incision and drainage and excisional debridement necrotizing diabetic abscess (160 cm2). 5. Stool contamination in diabetic wound, controlled. Has been doing well with Dakin's dressing changes. The wound looks good with better granulation and no more evidence of stool contamination at this time. Will re-apply the VAC today. Continue IV Unasyn from her previous operative culture that showed Enterococcus faecalis and Anaerobes. The recent wound culture shows Gram negative rods thus far. May need antibiotic modification once identified. General Surgery (Dr. Melton) consult for a diverting colostomy was appreciated. Will continue local measures at this time. Prealbumin was 16.0. Encourage nutritional supplementation with protein to help the healing process. After discharge, can followup at the [facility]. If there is a plateau in the healing process, can proceed with delayed closure with skin grafting.
[2017-11-28 16:55] LABS: Bedside Glucose 104 mg/dL (70-110)
--- NOTE | 2017-11-28 17:27 | NURSING ---
Wound vac applied to left thigh wound by Rabia wound RN. Dr. Branch aware of labs, NNO.
[2017-11-28 21:10] LABS: Bedside Glucose 173 mg/dL (70-110)
[2017-11-29] MEDS: 0.9% NaCl PICC Flush IV ×5 (02:17→21:25)
[2017-11-29] MEDS: AcetaZOLAMIDE 250 MG Tablet 125 MG PO ×3 (05:53→21:01)
[2017-11-29] MEDS: dilTIAZem CD 120 MG Capsule PO ×2 (05:53→17:30)
[2017-11-29] MEDS: Furosemide 20 MG Tablet PO ×2 (05:54→13:27)
[2017-11-29] MEDS: Iron Polysaccharide Complex 150 MG CAPSULE PO ×2 (05:54→17:30)
[2017-11-29] MEDS: Enoxaparin 40 MG/0.4 ML Syringe SC (05:55)
[2017-11-29] MEDS: Pantoprazole Sodium 40 MG Tablet PO (05:55)
[2017-11-29] MEDS: Nystatin Powder 15gm Bottle 1 APPLIC TOPICAL ×2 (05:55→21:04)
[2017-11-29 05:56] VITALS: BP 109/66; PULSE 58
[2017-11-29] MEDS: Metoprolol(XL)Succ 25 MG Tablet PO (05:56)
[2017-11-29 06:55] LABS: Bedside Glucose 121 mg/dL (70-110)
[2017-11-29 07:47] VITALS: O2SAT 93
[2017-11-29 10:00] VITALS: O2SAT 96
[2017-11-29 11:16] LABS: Bedside Glucose 141 mg/dL (70-110)
--- NOTE | 2017-11-29 14:19 | PCM.PN.BLA ---
Progress Note Wound culture from 11/26/17 showed Acinetobacter baumannii, Pseudomonas aeroginosa, and Citrobacter freundii. Will stop the Unasyn. Will begin Meropenem. Anticipate 6 weeks of IV antibiotics. Continue wound care with the VAC.
--- NOTE | 2017-11-29 14:25 | NURSING ---
DR GUEVARA AWARE OF PT WOUND CX RESULTS, NEW ORDER FOR FIFI RUBIO
[2017-11-29 15:36] VITALS: BP 121/58; PULSE 63; RESP 18; TEMP 36.5; O2SAT 98
[2017-11-29 17:00] LABS: Bedside Glucose 131 mg/dL (70-110)
[2017-11-29] MEDS: 0.9% NaCl IVPB Med Flush (250 mL) 15 ML IV (17:32)
[2017-11-29 21:15] LABS: Bedside Glucose 146 mg/dL (70-110)
--- NOTE | 2017-11-29 23:00 | NURSING ---
2100 pt resting quietly in the bed and denied any discomfort. wound vac and randle patent and draining . old area on the lt heel healing and feet are floated off the bed . call light in reach no other needs are voiced
[2017-11-30] MEDS: 0.9% NaCl PICC Flush IV ×2 (06:11→13:56)
[2017-11-30] MEDS: dilTIAZem CD 120 MG Capsule PO ×2 (06:20→17:26)
[2017-11-30] MEDS: AcetaZOLAMIDE 250 MG Tablet 125 MG PO ×3 (06:20→22:07)
[2017-11-30] MEDS: Iron Polysaccharide Complex 150 MG CAPSULE PO ×2 (06:20→17:26)
[2017-11-30] MEDS: Enoxaparin 40 MG/0.4 ML Syringe SC (06:21)
[2017-11-30] MEDS: Nystatin Powder 15gm Bottle 1 APPLIC TOPICAL ×2 (06:21→22:12)
[2017-11-30] MEDS: Furosemide 20 MG Tablet PO ×2 (06:21→13:56)
[2017-11-30] MEDS: Pantoprazole Sodium 40 MG Tablet PO (06:22)
[2017-11-30 06:27] VITALS: BP 120/66; PULSE 58
[2017-11-30] MEDS: Metoprolol(XL)Succ 25 MG Tablet PO (06:27)
[2017-11-30 07:11] LABS: Bedside Glucose 118 mg/dL (70-110)
[2017-11-30 10:00] VITALS: PULSE 52; RESP 18; O2SAT 98
[2017-11-30 11:26] LABS: Bedside Glucose 161 mg/dL (70-110)
--- NOTE | 2017-11-30 11:35 | NURSING ---
Pt wound vac alarming, wound Vac has a leak detected, this nurse along with Mildred KEITH reinforced wound vac and fixed the leak. wound vac running at 150CC. Will continue to monitor. Maren CALZADA aware.
[2017-11-30] MEDS: Insulin Lispro 100 UNIT/ML INSULN.PEN SQ (11:50)
[2017-11-30 16:00] VITALS: BP 117/68; PULSE 71; RESP 20; TEMP 36.2; O2SAT 97
[2017-11-30 17:06] LABS: Bedside Glucose 124 mg/dL (70-110)
[2017-11-30 21:10] LABS: Bedside Glucose 176 mg/dL (70-110)
[2017-12-01 05:38] VITALS: BP 121/65; PULSE 61
[2017-12-01 05:41] VITALS: BP 121/65; PULSE 61
[2017-12-01] MEDS: Pantoprazole Sodium 40 MG Tablet PO (05:41)
[2017-12-01] MEDS: Enoxaparin 40 MG/0.4 ML Syringe SC (05:41)
[2017-12-01] MEDS: Furosemide 20 MG Tablet PO ×2 (05:41→14:27)
[2017-12-01] MEDS: Metoprolol(XL)Succ 25 MG Tablet PO (05:41)
[2017-12-01] MEDS: AcetaZOLAMIDE 250 MG Tablet 125 MG PO ×3 (05:42→21:00)
[2017-12-01] MEDS: dilTIAZem CD 120 MG Capsule PO ×2 (05:42→17:29)
[2017-12-01] MEDS: Iron Polysaccharide Complex 150 MG CAPSULE PO ×2 (05:42→17:29)
[2017-12-01] MEDS: Nystatin Powder 15gm Bottle 1 APPLIC TOPICAL ×2 (05:44→21:00)
[2017-12-01 07:04] LABS: Bedside Glucose 110 mg/dL (70-110)
[2017-12-01 07:48] VITALS: O2SAT 99
[2017-12-01 11:20] LABS: Bedside Glucose 140 mg/dL (70-110)
[2017-12-01] MEDS: 0.9% NaCl PICC Flush IV ×2 (14:27→21:14)
[2017-12-01 15:38] VITALS: BP 120/70; PULSE 68; RESP 16; TEMP 36.2; O2SAT 96
--- NOTE | 2017-12-01 15:42 | NURSING ---
wound photo: left medial thigh
[2017-12-01 17:01] LABS: Bedside Glucose 140 mg/dL (70-110)
[2017-12-01 21:30] LABS: Bedside Glucose 123 mg/dL (70-110)
[2017-12-02] MEDS: 0.9% NaCl IVPB Med Flush (250 mL) 15 ML IV (05:10)
[2017-12-02] MEDS: 0.9% NaCl PICC Flush IV ×3 (05:10→21:47)
[2017-12-02] MEDS: AcetaZOLAMIDE 250 MG Tablet 125 MG PO ×3 (06:27→21:29)
[2017-12-02] MEDS: Iron Polysaccharide Complex 150 MG CAPSULE PO ×2 (06:28→17:50)
[2017-12-02] MEDS: dilTIAZem CD 120 MG Capsule PO ×2 (06:28→17:51)
[2017-12-02] MEDS: Furosemide 20 MG Tablet PO ×2 (06:29→13:49)
[2017-12-02] MEDS: Enoxaparin 40 MG/0.4 ML Syringe SC (06:29)
[2017-12-02] MEDS: Nystatin Powder 15gm Bottle 1 APPLIC TOPICAL ×2 (06:29→21:29)
[2017-12-02 06:30] VITALS: PULSE 68
[2017-12-02] MEDS: Pantoprazole Sodium 40 MG Tablet PO (06:30)
[2017-12-02] MEDS: Metoprolol(XL)Succ 25 MG Tablet PO (06:30)
[2017-12-02 07:00] LABS: Bedside Glucose 127 mg/dL (70-110)
[2017-12-02 11:05] VITALS: O2SAT 96
[2017-12-02 11:45] LABS: Bedside Glucose 194 mg/dL (70-110)
[2017-12-02] MEDS: Insulin Lispro 100 UNIT/ML INSULN.PEN SQ (11:47)
--- NOTE | 2017-12-02 12:55 | NURSING ---
Was called d/t wound VAC alarming leak. patient currently up in chair with wound VAC off. had patient stand. was able to fix wound VAC dressing. Good seal noted at 150mmHg low continuous suction.
[2017-12-02 15:27] VITALS: BP 125/70; PULSE 70; RESP 16; TEMP 36.7; O2SAT 94
[2017-12-02 17:06] LABS: Bedside Glucose 103 mg/dL (70-110)
[2017-12-02 21:11] LABS: Bedside Glucose 148 mg/dL (70-110)
[2017-12-02 22:00] VITALS: PULSE 64; RESP 18; O2SAT 95
[2017-12-03] MEDS: 0.9% NaCl PICC Flush IV ×2 (05:15→21:53)
[2017-12-03] MEDS: AcetaZOLAMIDE 250 MG Tablet 125 MG PO ×3 (05:43→20:39)
[2017-12-03] MEDS: dilTIAZem CD 120 MG Capsule PO ×2 (05:43→17:47)
[2017-12-03] MEDS: Iron Polysaccharide Complex 150 MG CAPSULE PO ×2 (05:44→17:47)
[2017-12-03] MEDS: Enoxaparin 40 MG/0.4 ML Syringe SC (05:44)
[2017-12-03] MEDS: Furosemide 20 MG Tablet PO ×2 (05:44→14:18)
[2017-12-03 05:45] VITALS: PULSE 70
[2017-12-03] MEDS: Metoprolol(XL)Succ 25 MG Tablet PO (05:45)
[2017-12-03] MEDS: Nystatin Powder 15gm Bottle 1 APPLIC TOPICAL ×2 (05:45→20:37)
[2017-12-03] MEDS: Pantoprazole Sodium 40 MG Tablet PO (05:45)
[2017-12-03 07:16] LABS: Bedside Glucose 127 mg/dL (70-110)
[2017-12-03 11:05] LABS: Bedside Glucose 158 mg/dL (70-110)
[2017-12-03] MEDS: Insulin Lispro 100 UNIT/ML INSULN.PEN SQ (11:32)
[2017-12-03] MEDS: 0.9% NaCl IVPB Med Flush (250 mL) 15 ML IV (14:12)
[2017-12-03 15:35] VITALS: BP 132/71; PULSE 71; RESP 18; TEMP 36.5; O2SAT 90
[2017-12-03 16:56] LABS: Bedside Glucose 134 mg/dL (70-110)
[2017-12-03 21:00] LABS: Bedside Glucose 158 mg/dL (70-110)
[2017-12-03 22:59] VITALS: PULSE 76; RESP 18; O2SAT 93
[2017-12-04] MEDS: 0.9% NaCl PICC Flush IV ×3 (06:16→21:44)
[2017-12-04] MEDS: Enoxaparin 40 MG/0.4 ML Syringe SC (06:26)
[2017-12-04 06:27] VITALS: BP 123/67; PULSE 62
[2017-12-04] MEDS: Metoprolol(XL)Succ 25 MG Tablet PO (06:27)
[2017-12-04] MEDS: AcetaZOLAMIDE 250 MG Tablet 125 MG PO ×3 (06:28→20:22)
[2017-12-04] MEDS: Furosemide 20 MG Tablet PO ×2 (06:29→14:31)
[2017-12-04] MEDS: Pantoprazole Sodium 40 MG Tablet PO (06:29)
[2017-12-04] MEDS: Iron Polysaccharide Complex 150 MG CAPSULE PO ×2 (06:30→17:13)
[2017-12-04] MEDS: dilTIAZem CD 120 MG Capsule PO ×2 (06:30→17:13)
[2017-12-04] MEDS: Nystatin Powder 15gm Bottle 1 APPLIC TOPICAL ×2 (06:33→20:22)
[2017-12-04 06:55] LABS: Bedside Glucose 119 mg/dL (70-110)
[2017-12-04 07:06] VITALS: O2SAT 99
[2017-12-04 10:00] VITALS: PULSE 86; RESP 18; O2SAT 96
[2017-12-04 11:56] LABS: Bedside Glucose 143 mg/dL (70-110)
[2017-12-04] MEDS: 0.9% NaCl IVPB Med Flush (250 mL) 15 ML IV (14:23)
[2017-12-04 15:29] VITALS: BP 111/59; PULSE 74; RESP 18; TEMP 36.9; O2SAT 93
[2017-12-04 16:56] LABS: Bedside Glucose 117 mg/dL (70-110)
[2017-12-04 21:00] LABS: Bedside Glucose 144 mg/dL (70-110)
[2017-12-05] MEDS: 0.9% NaCl PICC Flush IV ×4 (05:09→21:38)
[2017-12-05 05:20] LABS: Absolute Lymphocyte Count 1.55 X10^3/ul (0.83-4.51); Absolute Neutrophil Count 3.4 X10^3/uL (2.0-7.7); Basophil# 0.01 X10^3/uL; Basophil% 0.2 % (0-1); Eosinophils% 5.3 % (0-5); Hematocrit 31.6 % (37-47); Hemoglobin 9.3 g/dl (12.0-15.0); Lymphocyte # 1.55 X10^3/ul (4.0); Lymphocyte % 27.4 % (19-41); Mean Corp Hgb Conc 29.4 g/gl (32-36); Mean Corpuscular Hgb 26.8 pg (27.0-32.0); Mean Corpuscular Volume 91.1 fL (81-99); Mean Platelet Vol. 8.7 fl (6.2-12.0); Monocyte# 0.36 X10^3/uL; Monocyte% 6.4 % (0-10); Neutrophil # 3.42 X10^3/uL (2.7-7.7); Neutrophil % 60.3 % (47-70); POSITIVE COUNT NO; POSITIVE DIFFERENTIAL NO; POSITIVE MORPHOLOGY NO; Platelet Count 168 K/mm3 (150-450); RBC Distribution Width CV 16.3 % (11.6-14.6); RBC Distribution Width SD 54.4 fl (35.1-43.9); Red Blood Count 3.47 M/mm3 (4.2-5.4); White Blood Count 5.7 K/mm3 (4.4-11.0)
[2017-12-05 05:35] LABS: Anion Gap 6 (5-15); BUN 44 mg/dL (7-18); BUN/Creat Ratio 47.7 RATIO (10-20); Calcium,Total 8.5 mg/dL (8.5-10.1); Chloride 107 mmol/L (98-107); Creatinine, Serum 0.92 mg/dL (0.55-1.02); EST Glomerular Filtration Rate 68 mL/min (>60); Est Glom Filt Rate - Afr Amer 82 mL/min (>60); Estimated Creatinine Clearance 51.38 ml/min; Glucose 109 mg/dL (74-106); Potassium 3.9 mmol/L (3.5-5.1); Sodium Level 144 mmol/L (136-145)
[2017-12-05] MEDS: Nystatin Powder 15gm Bottle 1 APPLIC TOPICAL ×2 (05:49→21:38)
[2017-12-05] MEDS: AcetaZOLAMIDE 250 MG Tablet 125 MG PO ×3 (05:51→21:37)
[2017-12-05] MEDS: Iron Polysaccharide Complex 150 MG CAPSULE PO ×2 (05:57→16:58)
[2017-12-05 06:03] VITALS: BP 114/46; PULSE 56
[2017-12-05] MEDS: Pantoprazole Sodium 40 MG Tablet PO (06:04)
[2017-12-05] MEDS: dilTIAZem CD 120 MG Capsule PO ×2 (06:04→16:58)
[2017-12-05] MEDS: Furosemide 20 MG Tablet PO ×2 (06:04→14:41)
[2017-12-05] MEDS: Enoxaparin 40 MG/0.4 ML Syringe SC (06:07)
[2017-12-05 06:41] LABS: Bedside Glucose 109 mg/dL (70-110)
[2017-12-05 06:59] VITALS: O2SAT 96
--- NOTE | 2017-12-05 06:59 | NURSING ---
pt wound vac dressing was reinforced by the RN Dain this morning. Pt stated when she got up and walked to restroom she felt wound vac leaking.
[2017-12-05 10:00] VITALS: PULSE 58; O2SAT 98
[2017-12-05 11:55] LABS: Bedside Glucose 140 mg/dL (70-110)
[2017-12-05] MEDS: 0.9% NaCl IVPB Med Flush (250 mL) 15 ML IV ×2 (14:33→21:39)
[2017-12-05 15:30] VITALS: BP 117/65; PULSE 60; RESP 18; TEMP 36.9; O2SAT 93
[2017-12-05 17:06] LABS: Bedside Glucose 119 mg/dL (70-110)
[2017-12-05 21:06] LABS: Bedside Glucose 165 mg/dL (70-110)
[2017-12-06 05:23] VITALS: BP 113/47; PULSE 52
[2017-12-06] MEDS: Furosemide 20 MG Tablet PO ×2 (05:30→13:20)
[2017-12-06] MEDS: Enoxaparin 40 MG/0.4 ML Syringe SC (05:30)
[2017-12-06] MEDS: AcetaZOLAMIDE 250 MG Tablet 125 MG PO ×3 (05:30→21:57)
[2017-12-06] MEDS: Pantoprazole Sodium 40 MG Tablet PO (05:31)
[2017-12-06] MEDS: Iron Polysaccharide Complex 150 MG CAPSULE PO ×2 (05:31→16:39)
[2017-12-06] MEDS: dilTIAZem CD 120 MG Capsule PO ×2 (05:31→16:39)
[2017-12-06] MEDS: Nystatin Powder 15gm Bottle 1 APPLIC TOPICAL ×2 (05:32→22:01)
[2017-12-06 07:01] LABS: Bedside Glucose 117 mg/dL (70-110)
[2017-12-06 08:49] VITALS: PULSE 52
[2017-12-06 11:48] VITALS: O2SAT 99
[2017-12-06 11:51] LABS: Bedside Glucose 167 mg/dL (70-110)
[2017-12-06] MEDS: Insulin Lispro 100 UNIT/ML INSULN.PEN SQ ×2 (12:20→16:40)
[2017-12-06] MEDS: 0.9% NaCl PICC Flush IV ×2 (13:19→22:00)
[2017-12-06 15:11] VITALS: BP 113/68; PULSE 64; RESP 18; TEMP 36.7; O2SAT 98
[2017-12-06 16:45] LABS: Bedside Glucose 154 mg/dL (70-110)
[2017-12-06 21:11] LABS: Bedside Glucose 108 mg/dL (70-110)
[2017-12-07] MEDS: Pantoprazole Sodium 40 MG Tablet PO (05:20)
[2017-12-07] MEDS: dilTIAZem CD 120 MG Capsule PO ×2 (05:20→17:42)
[2017-12-07] MEDS: Furosemide 20 MG Tablet PO ×2 (05:20→13:13)
[2017-12-07] MEDS: Iron Polysaccharide Complex 150 MG CAPSULE PO ×2 (05:21→17:43)
[2017-12-07] MEDS: Nystatin Powder 15gm Bottle 1 APPLIC TOPICAL ×2 (05:22→22:11)
[2017-12-07] MEDS: AcetaZOLAMIDE 250 MG Tablet 125 MG PO ×3 (05:23→20:36)
[2017-12-07] MEDS: Enoxaparin 40 MG/0.4 ML Syringe SC (05:25)
[2017-12-07] MEDS: 0.9% NaCl PICC Flush IV ×3 (06:47→22:03)
[2017-12-07 06:48] VITALS: PULSE 75
[2017-12-07] MEDS: Metoprolol(XL)Succ 25 MG Tablet PO (06:48)
[2017-12-07 07:06] LABS: Bedside Glucose 99 mg/dL (70-110)
[2017-12-07 07:50] VITALS: O2SAT 99
[2017-12-07 10:00] VITALS: PULSE 66; RESP 18; O2SAT 96
[2017-12-07 11:46] LABS: Bedside Glucose 148 mg/dL (70-110)
[2017-12-07 16:00] VITALS: BP 117/65; PULSE 60; RESP 20; TEMP 36.3; O2SAT 96
[2017-12-07 17:16] LABS: Bedside Glucose 111 mg/dL (70-110)
[2017-12-07 21:00] LABS: Bedside Glucose 158 mg/dL (70-110)
[2017-12-07] MEDS: 0.9% NaCl IVPB Med Flush (250 mL) 15 ML IV (22:00)
--- NOTE | 2017-12-07 23:12 | NURSING ---
canister to wound vac changed tonight
[2017-12-08] MEDS: Pantoprazole Sodium 40 MG Tablet PO ×2 (06:15→06:16)
[2017-12-08] MEDS: Iron Polysaccharide Complex 150 MG CAPSULE PO ×2 (06:15→16:24)
[2017-12-08] MEDS: dilTIAZem CD 120 MG Capsule PO ×2 (06:15→16:25)
[2017-12-08] MEDS: AcetaZOLAMIDE 250 MG Tablet 125 MG PO ×3 (06:15→21:01)
[2017-12-08] MEDS: Furosemide 20 MG Tablet PO ×2 (06:17→14:25)
[2017-12-08 06:20] VITALS: BP 122/66; PULSE 65
[2017-12-08] MEDS: Metoprolol(XL)Succ 25 MG Tablet PO (06:20)
[2017-12-08] MEDS: Enoxaparin 40 MG/0.4 ML Syringe SC (06:22)
[2017-12-08] MEDS: Nystatin Powder 15gm Bottle 1 APPLIC TOPICAL ×2 (06:23→21:02)
[2017-12-08 07:01] LABS: Bedside Glucose 122 mg/dL (70-110)
[2017-12-08] MEDS: 0.9% NaCl PICC Flush IV ×3 (07:25→21:06)
[2017-12-08 11:21] LABS: Bedside Glucose 176 mg/dL (70-110)
[2017-12-08] MEDS: Insulin Lispro 100 UNIT/ML INSULN.PEN SQ (12:06)
--- NOTE | 2017-12-08 15:11 | NURSING ---
wound photo: left medial thigh
[2017-12-08 16:00] VITALS: BP 129/74; PULSE 64; RESP 18; TEMP 36.4; O2SAT 99
[2017-12-08] MEDS: Acetaminophen 500 MG Tablet 1000 MG PO (16:23)
[2017-12-08 16:41] LABS: Bedside Glucose 115 mg/dL (70-110)
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
[2017-12-08 21:31] LABS: Bedside Glucose 129 mg/dL (70-110)
[2017-12-08 21:37] VITALS: PULSE 72; RESP 18; O2SAT 96
[2017-12-09] MEDS: AcetaZOLAMIDE 250 MG Tablet 125 MG PO ×3 (05:34→21:18)
[2017-12-09] MEDS: Enoxaparin 40 MG/0.4 ML Syringe SC (05:35)
[2017-12-09] MEDS: Furosemide 20 MG Tablet PO ×2 (05:35→15:01)
[2017-12-09] MEDS: dilTIAZem CD 120 MG Capsule PO ×2 (05:35→17:59)
[2017-12-09] MEDS: Iron Polysaccharide Complex 150 MG CAPSULE PO ×2 (05:35→17:59)
[2017-12-09 05:36] VITALS: BP 126/71; PULSE 72
[2017-12-09] MEDS: Metoprolol(XL)Succ 25 MG Tablet PO (05:36)
[2017-12-09] MEDS: Nystatin Powder 15gm Bottle 1 APPLIC TOPICAL ×2 (05:36→21:18)
[2017-12-09] MEDS: Pantoprazole Sodium 40 MG Tablet PO (05:38)
--- NOTE | 2017-12-09 05:38 | NURSING ---
0600 Protonix 40mg scanned twice on 12/08/17, verified with Dain Lagos RN, who said to give as unscheduled dose this morning. Given one dose 12/09/17.
[2017-12-09 06:46] LABS: Bedside Glucose 110 mg/dL (70-110)
[2017-12-09] MEDS: 0.9% NaCl PICC Flush IV ×4 (06:47→21:18)
[2017-12-09] MEDS: Acetaminophen 500 MG Tablet 1000 MG PO (08:53)
[2017-12-09 11:50] LABS: Bedside Glucose 177 mg/dL (70-110)
[2017-12-09] MEDS: Insulin Lispro 100 UNIT/ML INSULN.PEN SQ (11:54)
--- NOTE | 2017-12-09 14:36 | NURSING ---
Assisted patient to the BSC and back to bed. leak noted in wound VAC dressing. leak fixed at this time. Good seal noted at 150mmHg low continuous suction. pt tolerated well. denies further needs at this time.
[2017-12-09 15:28] VITALS: BP 132/71; PULSE 62; RESP 18; TEMP 36.8; O2SAT 97
[2017-12-09 17:01] LABS: Bedside Glucose 144 mg/dL (70-110)
[2017-12-09 21:25] LABS: Bedside Glucose 153 mg/dL (70-110)
[2017-12-10] MEDS: 0.9% NaCl PICC Flush IV ×3 (05:51→22:32)
[2017-12-10] MEDS: 0.9% NaCl IVPB Med Flush (250 mL) 15 ML IV (05:51)
[2017-12-10] MEDS: dilTIAZem CD 120 MG Capsule PO ×2 (05:55→18:29)
[2017-12-10] MEDS: Iron Polysaccharide Complex 150 MG CAPSULE PO ×2 (05:56→18:30)
[2017-12-10] MEDS: AcetaZOLAMIDE 250 MG Tablet 125 MG PO ×3 (05:56→22:38)
[2017-12-10] MEDS: Furosemide 20 MG Tablet PO ×2 (05:56→13:56)
[2017-12-10] MEDS: Enoxaparin 40 MG/0.4 ML Syringe SC (05:56)
[2017-12-10 05:57] VITALS: BP 108/64; PULSE 60
[2017-12-10] MEDS: Metoprolol(XL)Succ 25 MG Tablet PO (05:57)
[2017-12-10] MEDS: Nystatin Powder 15gm Bottle 1 APPLIC TOPICAL ×2 (05:57→22:40)
[2017-12-10] MEDS: Pantoprazole Sodium 40 MG Tablet PO (05:57)
[2017-12-10 07:15] LABS: Bedside Glucose 106 mg/dL (70-110)
[2017-12-10 07:29] VITALS: O2SAT 97
[2017-12-10 10:00] VITALS: PULSE 60; O2SAT 98
[2017-12-10 11:35] LABS: Bedside Glucose 174 mg/dL (70-110)
[2017-12-10] MEDS: Insulin Lispro 100 UNIT/ML INSULN.PEN SQ (11:47)
[2017-12-10 15:44] VITALS: BP 110/67; PULSE 71; RESP 20; TEMP 37; O2SAT 94
[2017-12-10 17:06] LABS: Bedside Glucose 101 mg/dL (70-110)
[2017-12-10 21:21] LABS: Bedside Glucose 169 mg/dL (70-110)
[2017-12-11] MEDS: Pantoprazole Sodium 40 MG Tablet PO (05:34)
[2017-12-11] MEDS: Enoxaparin 40 MG/0.4 ML Syringe SC (05:34)
[2017-12-11 05:35] VITALS: BP 108/63; PULSE 61
[2017-12-11] MEDS: Metoprolol(XL)Succ 25 MG Tablet PO (05:35)
[2017-12-11] MEDS: dilTIAZem CD 120 MG Capsule PO ×2 (05:35→17:38)
[2017-12-11] MEDS: AcetaZOLAMIDE 250 MG Tablet 125 MG PO ×3 (05:35→20:50)
[2017-12-11] MEDS: Furosemide 20 MG Tablet PO ×2 (05:35→13:43)
[2017-12-11] MEDS: Iron Polysaccharide Complex 150 MG CAPSULE PO ×2 (05:35→17:38)
[2017-12-11] MEDS: 0.9% NaCl PICC Flush IV ×4 (05:35→22:13)
[2017-12-11] MEDS: Nystatin Powder 15gm Bottle 1 APPLIC TOPICAL ×2 (05:37→20:50)
[2017-12-11 06:46] LABS: Bedside Glucose 105 mg/dL (70-110)
[2017-12-11 08:07] VITALS: O2SAT 98
[2017-12-11 11:25] LABS: Bedside Glucose 175 mg/dL (70-110)
[2017-12-11] MEDS: Insulin Lispro 100 UNIT/ML INSULN.PEN SQ (12:04)
[2017-12-11 16:00] VITALS: BP 121/67; PULSE 68; RESP 18; TEMP 36.5; O2SAT 97
[2017-12-11 16:55] LABS: Bedside Glucose 106 mg/dL (70-110)
[2017-12-11 21:26] LABS: Bedside Glucose 136 mg/dL (70-110)
[2017-12-11] MEDS: 0.9% NaCl IVPB Med Flush (250 mL) 15 ML IV (22:13)
[2017-12-12] MEDS: 0.9% NaCl PICC Flush IV ×3 (05:03→21:49)
[2017-12-12 05:23] LABS: Absolute Lymphocyte Count 1.48 X10^3/ul (0.83-4.51); Absolute Neutrophil Count 3.8 X10^3/uL (2.0-7.7); Basophil# 0.03 X10^3/uL; Basophil% 0.5 % (0-1); Eosinophil# 0.51 X10^3/uL; Eosinophils% 8.1 % (0-5); Hematocrit 29.6 % (37-47); Hemoglobin 9.1 g/dl (12.0-15.0); Lymphocyte # 1.48 X10^3/ul (4.0); Lymphocyte % 23.6 % (19-41); Mean Corp Hgb Conc 30.7 g/gl (32-36); Mean Corpuscular Hgb 28.5 pg (27.0-32.0); Mean Corpuscular Volume 92.8 fL (81-99); Mean Platelet Vol. 9.9 fl (6.2-12.0); Monocyte# 0.41 X10^3/uL; Monocyte% 6.5 % (0-10); Neutrophil # 3.81 X10^3/uL (2.7-7.7); Neutrophil % 60.8 % (47-70); Platelet Count 152 K/mm3 (150-450); RBC Distribution Width CV 16.5 % (11.6-14.6); RBC Distribution Width SD 54.1 fl (35.1-43.9); Red Blood Count 3.19 M/mm3 (4.2-5.4); White Blood Count 6.3 K/mm3 (4.4-11.0)
[2017-12-12 05:24] LABS: POSITIVE COUNT NO; POSITIVE MORPHOLOGY NO
[2017-12-12 05:36] LABS: Anion Gap 7 (5-15); BUN 62 mg/dL (7-18); Calcium,Total 8.4 mg/dL (8.5-10.1); Chloride 106 mmol/L (98-107); Creatinine, Serum 1.32 mg/dL (0.55-1.02); EST Glomerular Filtration Rate 45 mL/min (>60); Est Glom Filt Rate - Afr Amer 54 mL/min (>60); Estimated Creatinine Clearance 35.81 ml/min; Glucose 109 mg/dL (74-106); Sodium Level 144 mmol/L (136-145)
[2017-12-12] MEDS: dilTIAZem CD 120 MG Capsule PO ×2 (06:31→17:56)
[2017-12-12] MEDS: Iron Polysaccharide Complex 150 MG CAPSULE PO ×2 (06:31→17:56)
[2017-12-12] MEDS: AcetaZOLAMIDE 250 MG Tablet 125 MG PO ×3 (06:31→21:38)
[2017-12-12] MEDS: Enoxaparin 40 MG/0.4 ML Syringe SC (06:32)
[2017-12-12] MEDS: Furosemide 20 MG Tablet PO ×2 (06:32→14:30)
[2017-12-12] MEDS: Nystatin Powder 15gm Bottle 1 APPLIC TOPICAL ×2 (06:32→21:40)
[2017-12-12 06:33] VITALS: BP 112/62; PULSE 68
[2017-12-12] MEDS: Metoprolol(XL)Succ 25 MG Tablet PO (06:33)
[2017-12-12] MEDS: Pantoprazole Sodium 40 MG Tablet PO (06:33)
[2017-12-12 07:01] LABS: Bedside Glucose 116 mg/dL (70-110)
[2017-12-12 07:55] VITALS: O2SAT 100
--- NOTE | 2017-12-12 10:53 | MDS.RN ---
Information for the mds was obtained from review of the clinical record, interview of resident, staff, and direct observation of resident's care.
[2017-12-12 11:16] LABS: Bedside Glucose 138 mg/dL (70-110)
--- NOTE | 2017-12-12 13:05 | NURSING ---
Addendum entered by Nenita Sher 12/13/17 17:38: Per Dr. Branch repeat BMP 12/15/17 Original Note: Dr. Branch reviewed AM labs, NNO
[2017-12-12] MEDS: 0.9% NaCl IVPB Med Flush (250 mL) 15 ML IV (14:19)
[2017-12-12] MEDS: Neomycin Sulfate/Polymyxin/Hc Susp 10 ML Bottle 4 DRP OTIC ×2 (15:17→21:41)
[2017-12-12 15:27] VITALS: BP 115/60; PULSE 75; RESP 20; TEMP 36.9; O2SAT 98
[2017-12-12 16:46] LABS: Bedside Glucose 107 mg/dL (70-110)
--- NOTE | 2017-12-12 17:00 | CASEMGMT ---
Social Work: Brief interview for mental status (BIMS) and PHQ-9 completed this day. BIMS score 15/15 and PHQ-9 score 3/27. HOLLIE Smith
[2017-12-12 21:15] LABS: Bedside Glucose 141 mg/dL (70-110)
[2017-12-12 22:10] VITALS: PULSE 67; RESP 18; O2SAT 97
--- NOTE | 2017-12-13 02:58 | NURSING ---
pt has a ecchymosis area to Lt heel states its old and shikha spring removed drsg off heal area. Maria Luz CALZADA notifed of finding.
[2017-12-13] MEDS: 0.9% NaCl IVPB Med Flush (250 mL) 15 ML IV ×2 (06:05→21:52)
[2017-12-13] MEDS: 0.9% NaCl PICC Flush IV ×3 (06:16→21:52)
[2017-12-13 06:45] VITALS: O2SAT 96
[2017-12-13 06:45] LABS: Bedside Glucose 113 mg/dL (70-110)
[2017-12-13] MEDS: Nystatin Powder 15gm Bottle 1 APPLIC TOPICAL ×2 (06:46→22:05)
[2017-12-13] MEDS: AcetaZOLAMIDE 250 MG Tablet 125 MG PO ×3 (06:47→22:04)
[2017-12-13] MEDS: Iron Polysaccharide Complex 150 MG CAPSULE PO ×2 (06:47→17:32)
[2017-12-13] MEDS: dilTIAZem CD 120 MG Capsule PO ×2 (06:48→17:32)
[2017-12-13] MEDS: Pantoprazole Sodium 40 MG Tablet PO (06:48)
[2017-12-13] MEDS: Furosemide 20 MG Tablet PO ×2 (06:48→13:34)
[2017-12-13 06:54] VITALS: BP 107/49; PULSE 57
[2017-12-13] MEDS: Enoxaparin 40 MG/0.4 ML Syringe SC (06:55)
[2017-12-13] MEDS: Neomycin Sulfate/Polymyxin/Hc Susp 10 ML Bottle 4 DRP OTIC ×3 (06:55→22:06)
--- NOTE | 2017-12-13 06:57 | NURSING ---
Addendum entered by Silvia Ureña 12/13/17 07:12: notified ZHENG Braga of BP Original Note: held pt metropolol d/t bp 107/49 ,P-57
[2017-12-13 07:19] VITALS: PULSE 57; O2SAT 97
[2017-12-13 11:06] LABS: Bedside Glucose 167 mg/dL (70-110)
[2017-12-13] MEDS: Insulin Lispro 100 UNIT/ML INSULN.PEN SQ (11:56)
[2017-12-13 16:00] VITALS: BP 118/70; PULSE 62; RESP 20; TEMP 36.4; O2SAT 95
[2017-12-13 17:01] LABS: Bedside Glucose 119 mg/dL (70-110)
[2017-12-13 20:51] LABS: Bedside Glucose 133 mg/dL (70-110)
[2017-12-14] MEDS: 0.9% NaCl PICC Flush IV ×3 (05:41→21:35)
[2017-12-14] MEDS: dilTIAZem CD 120 MG Capsule PO ×2 (06:33→17:39)
[2017-12-14] MEDS: AcetaZOLAMIDE 250 MG Tablet 125 MG PO ×3 (06:34→21:52)
[2017-12-14] MEDS: Iron Polysaccharide Complex 150 MG CAPSULE PO ×2 (06:35→17:39)
[2017-12-14 06:36] VITALS: BP 118/62; PULSE 68
[2017-12-14] MEDS: Pantoprazole Sodium 40 MG Tablet PO (06:36)
[2017-12-14] MEDS: Metoprolol(XL)Succ 25 MG Tablet PO (06:36)
[2017-12-14] MEDS: Furosemide 20 MG Tablet PO ×2 (06:36→14:23)
[2017-12-14] MEDS: Enoxaparin 40 MG/0.4 ML Syringe SC (06:36)
[2017-12-14] MEDS: Nystatin Powder 15gm Bottle 1 APPLIC TOPICAL ×2 (06:36→21:52)
[2017-12-14] MEDS: Neomycin Sulfate/Polymyxin/Hc Susp 10 ML Bottle 4 DRP OTIC ×3 (06:38→21:53)
[2017-12-14 06:41] LABS: Bedside Glucose 107 mg/dL (70-110)
[2017-12-14 07:27] VITALS: O2SAT 99
[2017-12-14 11:01] LABS: Bedside Glucose 172 mg/dL (70-110)
[2017-12-14] MEDS: Insulin Lispro 100 UNIT/ML INSULN.PEN SQ (11:13)
[2017-12-14 15:43] VITALS: BP 111/54; PULSE 60; RESP 18; TEMP 36.6; O2SAT 99
[2017-12-14 17:01] LABS: Bedside Glucose 139 mg/dL (70-110)
[2017-12-14 21:11] LABS: Bedside Glucose 168 mg/dL (70-110)
[2017-12-15 04:41] LABS: Anion Gap 7 (5-15); BUN 52 mg/dL (7-18); BUN/Creat Ratio 59.1 RATIO (10-20); Calcium,Total 8.5 mg/dL (8.5-10.1); Chloride 109 mmol/L (98-107); Creatinine, Serum 0.88 mg/dL (0.55-1.02); EST Glomerular Filtration Rate 72 mL/min (>60); Est Glom Filt Rate - Afr Amer 87 mL/min (>60); Estimated Creatinine Clearance 53.72 ml/min; Glucose 104 mg/dL (74-106); Potassium 4.2 mmol/L (3.5-5.1); Sodium Level 146 mmol/L (136-145)
[2017-12-15] MEDS: 0.9% NaCl PICC Flush IV ×2 (05:02→13:36)
[2017-12-15 06:41] LABS: Bedside Glucose 103 mg/dL (70-110)
[2017-12-15] MEDS: AcetaZOLAMIDE 250 MG Tablet 125 MG PO ×3 (06:45→22:36)
[2017-12-15] MEDS: Iron Polysaccharide Complex 150 MG CAPSULE PO ×2 (06:45→17:17)
[2017-12-15 06:46] VITALS: BP 118/70; PULSE 68
[2017-12-15] MEDS: Furosemide 20 MG Tablet PO ×2 (06:46→13:38)
[2017-12-15] MEDS: Metoprolol(XL)Succ 25 MG Tablet PO (06:46)
[2017-12-15] MEDS: Pantoprazole Sodium 40 MG Tablet PO (06:47)
[2017-12-15] MEDS: Enoxaparin 40 MG/0.4 ML Syringe SC (06:47)
[2017-12-15] MEDS: dilTIAZem CD 120 MG Capsule PO ×2 (06:47→17:17)
[2017-12-15] MEDS: Nystatin Powder 15gm Bottle 1 APPLIC TOPICAL ×2 (06:47→22:37)
[2017-12-15] MEDS: Neomycin Sulfate/Polymyxin/Hc Susp 10 ML Bottle 4 DRP OTIC ×3 (06:48→22:37)
[2017-12-15 11:05] LABS: Bedside Glucose 181 mg/dL (70-110)
[2017-12-15] MEDS: Insulin Lispro 100 UNIT/ML INSULN.PEN SQ (11:13)
[2017-12-15] MEDS: 0.9% NaCl IVPB Med Flush (250 mL) 15 ML IV (13:36)
[2017-12-15 13:50] VITALS: PULSE 61; RESP 18; O2SAT 95
--- NOTE | 2017-12-15 15:24 | NURSING ---
wound photo: left medial thigh
[2017-12-15 15:50] VITALS: BP 101/59; PULSE 61; RESP 20; TEMP 36.4; O2SAT 99
[2017-12-15 16:55] LABS: Bedside Glucose 91 mg/dL (70-110)
--- NOTE | 2017-12-15 17:22 | NURSING ---
PT BROUGHT IN A DOUBLE SAUSAGE SANDWICH FOR THE PT. THIS NURSE GAVE SOME TEACHING TO PT AND ON PT DIET. STATED TO BOTH THAT PT SODIUM WAS HIGH TODAY. BOTH STATED THEY UNDERSTOOD BUT PT CONTINUE TO EAT. REPORTED TO ZHENG AVILA
[2017-12-15 21:16] LABS: Bedside Glucose 152 mg/dL (70-110)
[2017-12-16] MEDS: AcetaZOLAMIDE 250 MG Tablet 125 MG PO ×3 (05:59→21:28)
[2017-12-16 06:00] VITALS: BP 125/57; PULSE 57
[2017-12-16] MEDS: dilTIAZem CD 120 MG Capsule PO ×2 (06:00→17:49)
[2017-12-16] MEDS: Furosemide 20 MG Tablet PO ×2 (06:00→13:06)
[2017-12-16] MEDS: Pantoprazole Sodium 40 MG Tablet PO (06:00)
[2017-12-16] MEDS: Metoprolol(XL)Succ 25 MG Tablet PO (06:00)
[2017-12-16] MEDS: Enoxaparin 40 MG/0.4 ML Syringe SC (06:00)
[2017-12-16] MEDS: Iron Polysaccharide Complex 150 MG CAPSULE PO ×2 (06:01→17:49)
[2017-12-16] MEDS: Bisacodyl 5 MG Tablet 10 MG PO (06:04)
[2017-12-16] MEDS: Nystatin Powder 15gm Bottle 1 APPLIC TOPICAL ×2 (06:05→21:28)
[2017-12-16] MEDS: Neomycin Sulfate/Polymyxin/Hc Susp 10 ML Bottle 4 DRP OTIC ×3 (06:08→21:29)
[2017-12-16 06:35] VITALS: O2SAT 95
[2017-12-16 06:35] LABS: Bedside Glucose 107 mg/dL (70-110)
[2017-12-16] MEDS: Insulin Lispro 100 UNIT/ML INSULN.PEN SQ (11:31)
[2017-12-16 11:41] LABS: Bedside Glucose 200 mg/dL (70-110)
[2017-12-16 13:00] VITALS: PULSE 96; RESP 18; O2SAT 99
[2017-12-16] MEDS: 0.9% NaCl IVPB Med Flush (250 mL) 15 ML IV (13:51)
--- NOTE | 2017-12-16 13:51 | NURSING ---
Pt had small leak in wound VAC near the inner upper thigh when patient was getting up into the bed. fixed leak easily. Good seal noted at 150mmHg low continuous suction. Pt tolerated well.
--- NOTE | 2017-12-16 14:12 | NURSING ---
Patient has c/o discomfort r/t catheter, requesting new catheter be inserted. Patient is due for a new catheter in 6 days. 18f 10cc catheter inserted via sterile technique. clear, yellow urine return noted. Patient tolerated procedure well. Will continue to monitor.
[2017-12-16 15:12] VITALS: BP 123/56; PULSE 66; RESP 20; TEMP 36.4; O2SAT 98
[2017-12-16 16:55] LABS: Bedside Glucose 89 mg/dL (70-110)
[2017-12-16] MEDS: Fluconazole 100 MG Tablet PO (18:35)
[2017-12-16 21:20] LABS: Bedside Glucose 142 mg/dL (70-110)
[2017-12-16] MEDS: 0.9% NaCl PICC Flush IV (22:16)
[2017-12-17] MEDS: 0.9% NaCl IVPB Med Flush (250 mL) 15 ML IV (05:41)
[2017-12-17] MEDS: 0.9% NaCl PICC Flush IV ×2 (05:44→21:32)
[2017-12-17] MEDS: AcetaZOLAMIDE 250 MG Tablet 125 MG PO ×3 (06:39→21:30)
[2017-12-17] MEDS: Pantoprazole Sodium 40 MG Tablet PO (06:40)
[2017-12-17] MEDS: dilTIAZem CD 120 MG Capsule PO ×2 (06:40→17:08)
[2017-12-17] MEDS: Enoxaparin 40 MG/0.4 ML Syringe SC (06:40)
[2017-12-17] MEDS: Furosemide 20 MG Tablet PO ×2 (06:40→14:09)
[2017-12-17] MEDS: Nystatin Powder 15gm Bottle 1 APPLIC TOPICAL ×2 (06:40→21:38)
[2017-12-17] MEDS: Neomycin Sulfate/Polymyxin/Hc Susp 10 ML Bottle 4 DRP OTIC ×3 (06:41→21:40)
[2017-12-17] MEDS: Iron Polysaccharide Complex 150 MG CAPSULE PO ×2 (06:43→17:08)
[2017-12-17] MEDS: Bisacodyl 5 MG Tablet 10 MG PO (06:43)
[2017-12-17] MEDS: Fluconazole 100 MG Tablet PO (06:44)
[2017-12-17 06:45] VITALS: BP 124/68; PULSE 60
[2017-12-17] MEDS: Metoprolol(XL)Succ 25 MG Tablet PO (06:45)
[2017-12-17 06:50] LABS: Bedside Glucose 116 mg/dL (70-110)
[2017-12-17 06:55] VITALS: O2SAT 95
[2017-12-17 11:26] LABS: Bedside Glucose 185 mg/dL (70-110)
[2017-12-17] MEDS: Insulin Lispro 100 UNIT/ML INSULN.PEN SQ (11:47)
[2017-12-17 15:28] VITALS: BP 116/53; PULSE 65; RESP 18; TEMP 36.1; O2SAT 97
[2017-12-17 17:00] LABS: Bedside Glucose 100 mg/dL (70-110)
[2017-12-17 21:05] LABS: Bedside Glucose 161 mg/dL (70-110)
[2017-12-17 22:25] VITALS: PULSE 66; RESP 18; O2SAT 98
[2017-12-18 05:51] VITALS: BP 127/71; PULSE 65
[2017-12-18] MEDS: Furosemide 20 MG Tablet PO ×2 (05:51→14:00)
[2017-12-18] MEDS: Pantoprazole Sodium 40 MG Tablet PO (05:51)
[2017-12-18] MEDS: dilTIAZem CD 120 MG Capsule PO ×2 (05:51→17:37)
[2017-12-18] MEDS: Metoprolol(XL)Succ 25 MG Tablet PO (05:51)
[2017-12-18] MEDS: Fluconazole 100 MG Tablet PO (05:51)
[2017-12-18] MEDS: AcetaZOLAMIDE 250 MG Tablet 125 MG PO ×3 (05:52→21:37)
[2017-12-18] MEDS: Bisacodyl 5 MG Tablet 10 MG PO (05:52)
[2017-12-18] MEDS: Iron Polysaccharide Complex 150 MG CAPSULE PO ×2 (05:53→17:37)
[2017-12-18] MEDS: Enoxaparin 40 MG/0.4 ML Syringe SC (05:57)
[2017-12-18] MEDS: Neomycin Sulfate/Polymyxin/Hc Susp 10 ML Bottle 4 DRP OTIC ×3 (05:58→21:39)
[2017-12-18] MEDS: Nystatin Powder 15gm Bottle 1 APPLIC TOPICAL ×2 (06:12→21:41)
[2017-12-18] MEDS: 0.9% NaCl IVPB Med Flush (250 mL) 15 ML IV (06:17)
[2017-12-18] MEDS: 0.9% NaCl PICC Flush IV ×4 (06:18→22:35)
[2017-12-18 07:06] LABS: Bedside Glucose 126 mg/dL (70-110)
--- NOTE | 2017-12-18 08:30 | NURSING ---
Dr. Goel here to see pt
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
[2017-12-18 11:20] LABS: Bedside Glucose 193 mg/dL (70-110)
[2017-12-18] MEDS: Insulin Lispro 100 UNIT/ML INSULN.PEN SQ (12:22)
[2017-12-18 15:56] VITALS: BP 143/83; PULSE 70; RESP 16; TEMP 36.8; O2SAT 95
[2017-12-18 16:56] LABS: Bedside Glucose 128 mg/dL (70-110)
--- NOTE | 2017-12-18 18:53 | NURSING ---
Wound vac reinforced at this time. No leakage present at this time.
[2017-12-18 21:16] LABS: Bedside Glucose 117 mg/dL (70-110)
[2017-12-18 22:35] VITALS: PULSE 68; O2SAT 97
[2017-12-19] MEDS: 0.9% NaCl PICC Flush IV ×5 (05:13→22:46)
[2017-12-19] MEDS: 0.9% NaCl IVPB Med Flush (250 mL) 15 ML IV (05:15)
[2017-12-19 05:58] LABS: Absolute Lymphocyte Count 1.34 X10^3/ul (0.83-4.51); Absolute Neutrophil Count 4.9 X10^3/uL (2.0-7.7); Basophil# 0.03 X10^3/uL; Basophil% 0.4 % (0-1); Eosinophil# 0.77 X10^3/uL; Eosinophils% 10.2 % (0-5); Hematocrit 29.5 % (37-47); Hemoglobin 9.3 g/dl (12.0-15.0); Lymphocyte # 1.34 X10^3/ul (4.0); Lymphocyte % 17.8 % (19-41); Mean Corp Hgb Conc 31.5 g/gl (32-36); Mean Corpuscular Hgb 28.9 pg (27.0-32.0); Mean Corpuscular Volume 91.6 fL (81-99); Mean Platelet Vol. 9.8 fl (6.2-12.0); Monocyte# 0.45 X10^3/uL; Neutrophil # 4.91 X10^3/uL (2.7-7.7); Neutrophil % 65.1 % (47-70); Platelet Count 170 K/mm3 (150-450); RBC Distribution Width CV 16.5 % (11.6-14.6); RBC Distribution Width SD 53.5 fl (35.1-43.9); Red Blood Count 3.22 M/mm3 (4.2-5.4); White Blood Count 7.5 K/mm3 (4.4-11.0)
[2017-12-19 06:12] LABS: POSITIVE COUNT NO; POSITIVE DIFFERENTIAL NO; POSITIVE MORPHOLOGY NO
[2017-12-19 06:13] LABS: Anion Gap 8 (5-15); BUN 48 mg/dL (7-18); BUN/Creat Ratio 52.8 RATIO (10-20); Calcium,Total 8.8 mg/dL (8.5-10.1); Chloride 106 mmol/L (98-107); Creatinine, Serum 0.91 mg/dL (0.55-1.02); EST Glomerular Filtration Rate 69 mL/min (>60); Est Glom Filt Rate - Afr Amer 83 mL/min (>60); Estimated Creatinine Clearance 51.94 ml/min; Glucose 109 mg/dL (74-106); Potassium 4.1 mmol/L (3.5-5.1); Sodium Level 143 mmol/L (136-145)
[2017-12-19] MEDS: Pantoprazole Sodium 40 MG Tablet PO (06:36)
[2017-12-19] MEDS: dilTIAZem CD 120 MG Capsule PO ×2 (06:36→17:46)
[2017-12-19] MEDS: Fluconazole 100 MG Tablet PO (06:36)
[2017-12-19] MEDS: Iron Polysaccharide Complex 150 MG CAPSULE PO ×2 (06:36→17:47)
[2017-12-19] MEDS: Furosemide 20 MG Tablet PO ×2 (06:36→14:02)
[2017-12-19 06:37] VITALS: BP 109/65; PULSE 66
[2017-12-19] MEDS: Bisacodyl 5 MG Tablet 10 MG PO (06:37)
[2017-12-19] MEDS: Metoprolol(XL)Succ 25 MG Tablet PO (06:37)
[2017-12-19] MEDS: AcetaZOLAMIDE 250 MG Tablet 125 MG PO ×3 (06:38→21:42)
[2017-12-19] MEDS: Enoxaparin 40 MG/0.4 ML Syringe SC (06:40)
[2017-12-19] MEDS: Nystatin Powder 15gm Bottle 1 APPLIC TOPICAL ×2 (06:40→21:47)
[2017-12-19] MEDS: Neomycin Sulfate/Polymyxin/Hc Susp 10 ML Bottle 4 DRP OTIC ×3 (06:44→21:45)
[2017-12-19 06:56] LABS: Bedside Glucose 113 mg/dL (70-110)
[2017-12-19 08:12] VITALS: O2SAT 95
[2017-12-19 10:00] VITALS: PULSE 68; RESP 18; O2SAT 98
--- NOTE | 2017-12-19 11:43 | NURSING ---
Dr. Branch reviewed labs, N.N.O.
[2017-12-19 11:46] LABS: Bedside Glucose 163 mg/dL (70-110)
[2017-12-19] MEDS: Insulin Lispro 100 UNIT/ML INSULN.PEN SQ (11:52)
--- NOTE | 2017-12-19 14:40 | CASEMGMT ---
Social Work Resident spouse informing this social group worker that resident is not able to afford current medical bills and is concerned about further medical bills to come. This social group worker meeting with resident in room. Resident wanting to complete medicaid application. Medicaid application completed except for resident spouse to sign as authorized insurance sales representative. This social group worker leaving medicaid application with resident. Resident spouse to be in this weekend. Resident to either give application to nursing to set in this social group worker box or this social group worker will lease picker application on Friday morning. Support given. Will continue to follow. Marion GARCIA, CREEL CLERK
[2017-12-19 15:20] VITALS: BP 126/71; PULSE 64; RESP 18; TEMP 36.8; O2SAT 96
[2017-12-19 17:05] LABS: Bedside Glucose 142 mg/dL (70-110)
[2017-12-19 21:40] LABS: Bedside Glucose 163 mg/dL (70-110)
[2017-12-20 06:16] VITALS: BP 103/59; PULSE 78
[2017-12-20] MEDS: Metoprolol(XL)Succ 25 MG Tablet PO (06:16)
[2017-12-20] MEDS: Neomycin Sulfate/Polymyxin/Hc Susp 10 ML Bottle 4 DRP OTIC ×2 (06:17→22:03)
[2017-12-20] MEDS: Pantoprazole Sodium 40 MG Tablet PO (06:17)
[2017-12-20] MEDS: Fluconazole 100 MG Tablet PO (06:17)
[2017-12-20] MEDS: Furosemide 20 MG Tablet PO ×2 (06:17→14:25)
[2017-12-20] MEDS: Bisacodyl 5 MG Tablet 10 MG PO (06:17)
[2017-12-20] MEDS: Iron Polysaccharide Complex 150 MG CAPSULE PO ×2 (06:18→17:37)
[2017-12-20] MEDS: AcetaZOLAMIDE 250 MG Tablet 125 MG PO ×3 (06:18→22:09)
[2017-12-20] MEDS: dilTIAZem CD 120 MG Capsule PO ×2 (06:18→17:37)
[2017-12-20] MEDS: 0.9% NaCl PICC Flush IV ×2 (06:19→22:02)
[2017-12-20] MEDS: Enoxaparin 40 MG/0.4 ML Syringe SC (06:25)
[2017-12-20 07:05] LABS: Bedside Glucose 129 mg/dL (70-110)
[2017-12-20] MEDS: Nystatin Powder 15gm Bottle 1 APPLIC TOPICAL ×2 (07:25→22:06)
[2017-12-20 07:37] VITALS: O2SAT 100
--- NOTE | 2017-12-20 08:20 | NURSING ---
wound vac reinforced at this time. no leaks detected after reinforcement.
--- NOTE | 2017-12-20 09:50 | NURSING ---
Pt noted to have a blister under surgical incision, blister intact and fluid filled. Maren CALZADA aware
[2017-12-20 11:31] LABS: Bedside Glucose 145 mg/dL (70-110)
[2017-12-20 15:22] VITALS: BP 123/67; PULSE 65; RESP 16; TEMP 36.1; O2SAT 94
[2017-12-20 16:55] LABS: Bedside Glucose 132 mg/dL (70-110)
[2017-12-20 21:11] LABS: Bedside Glucose 131 mg/dL (70-110)
[2017-12-20 23:10] VITALS: PULSE 72
[2017-12-21] MEDS: 0.9% NaCl PICC Flush IV ×4 (00:05→21:29)
[2017-12-21] MEDS: 0.9% NaCl IVPB Med Flush (250 mL) 15 ML IV (06:21)
[2017-12-21] MEDS: Bisacodyl 5 MG Tablet 10 MG PO (06:23)
[2017-12-21] MEDS: Enoxaparin 40 MG/0.4 ML Syringe SC (06:23)
[2017-12-21] MEDS: AcetaZOLAMIDE 250 MG Tablet 125 MG PO ×3 (06:23→21:24)
[2017-12-21] MEDS: dilTIAZem CD 120 MG Capsule PO ×2 (06:24→17:43)
[2017-12-21] MEDS: Iron Polysaccharide Complex 150 MG CAPSULE PO ×2 (06:24→17:43)
[2017-12-21] MEDS: Furosemide 20 MG Tablet PO ×2 (06:24→13:48)
[2017-12-21] MEDS: Fluconazole 100 MG Tablet PO (06:24)
[2017-12-21] MEDS: Pantoprazole Sodium 40 MG Tablet PO (06:24)
[2017-12-21] MEDS: Nystatin Powder 15gm Bottle 1 APPLIC TOPICAL ×2 (06:26→21:29)
[2017-12-21] MEDS: Neomycin Sulfate/Polymyxin/Hc Susp 10 ML Bottle 4 DRP OTIC (06:26)
[2017-12-21 06:27] VITALS: BP 110/55; PULSE 61
[2017-12-21] MEDS: Metoprolol(XL)Succ 25 MG Tablet PO (06:27)
[2017-12-21 07:26] LABS: Bedside Glucose 108 mg/dL (70-110)
[2017-12-21 07:39] VITALS: O2SAT 99
[2017-12-21 10:00] VITALS: PULSE 92; RESP 20; O2SAT 96
[2017-12-21 11:40] LABS: Bedside Glucose 168 mg/dL (70-110)
[2017-12-21] MEDS: Insulin Lispro 100 UNIT/ML INSULN.PEN SQ ×2 (11:53→17:43)
[2017-12-21 15:49] VITALS: BP 123/59; PULSE 59; RESP 18; TEMP 36.7; O2SAT 95
[2017-12-21 17:15] LABS: Bedside Glucose 154 mg/dL (70-110)
[2017-12-21 21:26] LABS: Bedside Glucose 144 mg/dL (70-110)
[2017-12-22 06:07] VITALS: BP 120/56; PULSE 69; RESP 18; O2SAT 99
[2017-12-22 06:10] VITALS: PULSE 69
[2017-12-22] MEDS: Metoprolol(XL)Succ 25 MG Tablet PO (06:10)
[2017-12-22] MEDS: Enoxaparin 40 MG/0.4 ML Syringe SC (06:10)
[2017-12-22] MEDS: Furosemide 20 MG Tablet PO ×2 (06:10→13:32)
[2017-12-22] MEDS: AcetaZOLAMIDE 250 MG Tablet 125 MG PO ×3 (06:10→21:19)
[2017-12-22] MEDS: Pantoprazole Sodium 40 MG Tablet PO (06:10)
[2017-12-22] MEDS: Fluconazole 100 MG Tablet PO (06:10)
[2017-12-22] MEDS: Bisacodyl 5 MG Tablet 10 MG PO (06:10)
[2017-12-22] MEDS: Iron Polysaccharide Complex 150 MG CAPSULE PO ×2 (06:11→17:04)
[2017-12-22] MEDS: dilTIAZem CD 120 MG Capsule PO ×2 (06:11→17:04)
[2017-12-22] MEDS: 0.9% NaCl PICC Flush IV ×3 (06:14→21:39)
[2017-12-22] MEDS: 0.9% NaCl IVPB Med Flush (250 mL) 15 ML IV (06:14)
[2017-12-22] MEDS: Nystatin Powder 15gm Bottle 1 APPLIC TOPICAL ×2 (06:15→21:20)
[2017-12-22 07:11] LABS: Bedside Glucose 105 mg/dL (70-110)
[2017-12-22 07:50] VITALS: O2SAT 95
[2017-12-22 11:26] LABS: Bedside Glucose 163 mg/dL (70-110)
[2017-12-22] MEDS: Insulin Lispro 100 UNIT/ML INSULN.PEN SQ (11:40)
--- NOTE | 2017-12-22 11:52 | CASEMGMT ---
Social Work Meeting with resident in room. Resident providing this licensed social worker with completed medicaid application. Resident with no further questions at this time. Resident aware of application process as resident has had medicaid in the past. Faxed Medicaid application to [facility] in [facility]. Will continue to follow as needed. Marion GARCIA, PROFESSIONAL CASTER
--- NOTE | 2017-12-22 14:17 | MDS.RN ---
Information for the mds was obtained from review of the clinical record, interview of resident, staff, and direct observation of resident's care.
[2017-12-22 15:34] VITALS: BP 113/66; PULSE 62; RESP 16; TEMP 36.4; O2SAT 96
--- NOTE | 2017-12-22 15:34 | NURSING ---
wound photo: left medial thigh
--- NOTE | 2017-12-22 16:01 | CHAPLAIN ---
Type of Pastoral Visit ___ Initial Visit _x__ Follow-up Visit ___ On-call Visit ___ General Patient Visit ___ Spiritual Assessment ___ Family Conference ___ Bereavement ___ Rapid Response ___ Code Blue ___ Other (describe below) Pastoral Care Referral From _x__ Patient ___ Family ___ Nurse ___ Physician ___ Fish Packer ___ Wine And Spirits Clerk ___ Other (describe below) Sacrament/Intervention _x__ Active listening ___ Anointing ___ Mormon ___ Bereavement ___ Communion ___ Shiela exploration ___ ___ Life review _x__ Prayer ___ Reconciliation ___ Sacrament of Sick ___ Supportive presence ___ Wedding ___ Other (describe below) Pastoral Comments
[2017-12-22] MEDS: Acetaminophen 500 MG Tablet 1000 MG PO (17:07)
[2017-12-22 17:15] LABS: Bedside Glucose 103 mg/dL (70-110)
[2017-12-22 20:55] VITALS: PULSE 68; RESP 18; O2SAT 94
[2017-12-22 21:16] LABS: Bedside Glucose 151 mg/dL (70-110)
[2017-12-23] MEDS: 0.9% NaCl IVPB Med Flush (250 mL) 15 ML IV ×2 (06:02→21:36)
[2017-12-23] MEDS: 0.9% NaCl PICC Flush IV ×4 (06:07→21:36)
[2017-12-23 06:46] VITALS: PULSE 68
[2017-12-23] MEDS: Metoprolol(XL)Succ 25 MG Tablet PO (06:46)
[2017-12-23] MEDS: dilTIAZem CD 120 MG Capsule PO ×2 (06:46→17:39)
[2017-12-23] MEDS: AcetaZOLAMIDE 250 MG Tablet 125 MG PO ×3 (06:46→21:19)
[2017-12-23] MEDS: Nystatin Powder 15gm Bottle 1 APPLIC TOPICAL ×2 (06:46→21:20)
[2017-12-23] MEDS: Enoxaparin 40 MG/0.4 ML Syringe SC (06:47)
[2017-12-23] MEDS: Pantoprazole Sodium 40 MG Tablet PO (06:47)
[2017-12-23] MEDS: Furosemide 20 MG Tablet PO ×2 (06:47→13:26)
[2017-12-23] MEDS: Iron Polysaccharide Complex 150 MG CAPSULE PO ×2 (06:47→17:39)
[2017-12-23] MEDS: Bisacodyl 5 MG Tablet 10 MG PO (06:48)
[2017-12-23 07:06] LABS: Bedside Glucose 114 mg/dL (70-110)
--- NOTE | 2017-12-23 08:09 | NURSING ---
wound vac leaking. reinforced.
[2017-12-23 10:20] VITALS: O2SAT 93
[2017-12-23 11:46] LABS: Bedside Glucose 160 mg/dL (70-110)
[2017-12-23] MEDS: Insulin Lispro 100 UNIT/ML INSULN.PEN SQ (11:50)
[2017-12-23 16:00] VITALS: BP 102/60; PULSE 68; RESP 20; TEMP 36.6; O2SAT 97
[2017-12-23 17:11] LABS: Bedside Glucose 147 mg/dL (70-110)
[2017-12-23 21:05] LABS: Bedside Glucose 144 mg/dL (70-110)
[2017-12-23 22:00] VITALS: PULSE 64; RESP 18; O2SAT 95
[2017-12-24] MEDS: 0.9% NaCl PICC Flush IV ×3 (05:24→22:23)
[2017-12-24] MEDS: Furosemide 20 MG Tablet PO ×2 (05:49→13:55)
[2017-12-24] MEDS: Iron Polysaccharide Complex 150 MG CAPSULE PO ×2 (05:49→17:48)
[2017-12-24] MEDS: Nystatin Powder 15gm Bottle 1 APPLIC TOPICAL ×2 (05:49→21:32)
[2017-12-24] MEDS: Pantoprazole Sodium 40 MG Tablet PO (05:50)
[2017-12-24] MEDS: Bisacodyl 5 MG Tablet 10 MG PO (05:50)
[2017-12-24] MEDS: AcetaZOLAMIDE 250 MG Tablet 125 MG PO ×3 (05:50→21:31)
[2017-12-24] MEDS: dilTIAZem CD 120 MG Capsule PO ×2 (05:50→17:48)
[2017-12-24 05:51] VITALS: BP 116/71; PULSE 68
[2017-12-24] MEDS: Metoprolol(XL)Succ 25 MG Tablet PO (05:51)
[2017-12-24] MEDS: Enoxaparin 40 MG/0.4 ML Syringe SC (05:51)
[2017-12-24 06:01] VITALS: PULSE 68; RESP 18; O2SAT 96
[2017-12-24 07:16] LABS: Bedside Glucose 110 mg/dL (70-110)
[2017-12-24 12:00] LABS: Bedside Glucose 166 mg/dL (70-110)
[2017-12-24] MEDS: Insulin Lispro 100 UNIT/ML INSULN.PEN SQ ×2 (12:08→17:48)
[2017-12-24 16:00] VITALS: BP 140/68; PULSE 68; RESP 20; TEMP 36.1; O2SAT 100
[2017-12-24 17:11] LABS: Bedside Glucose 160 mg/dL (70-110)
[2017-12-24 21:20] LABS: Bedside Glucose 173 mg/dL (70-110)
[2017-12-25] MEDS: 0.9% NaCl IVPB Med Flush (250 mL) 15 ML IV (06:15)
[2017-12-25] MEDS: 0.9% NaCl PICC Flush IV ×3 (06:15→21:20)
[2017-12-25] MEDS: Nystatin Powder 15gm Bottle 1 APPLIC TOPICAL ×2 (06:20→21:30)
[2017-12-25 06:38] VITALS: BP 118/73; PULSE 60
[2017-12-25] MEDS: dilTIAZem CD 120 MG Capsule PO ×2 (06:38→17:24)
[2017-12-25] MEDS: Iron Polysaccharide Complex 150 MG CAPSULE PO ×2 (06:38→17:24)
[2017-12-25] MEDS: Metoprolol(XL)Succ 25 MG Tablet PO (06:38)
[2017-12-25] MEDS: Bisacodyl 5 MG Tablet 10 MG PO (06:39)
[2017-12-25] MEDS: Pantoprazole Sodium 40 MG Tablet PO (06:39)
[2017-12-25] MEDS: AcetaZOLAMIDE 250 MG Tablet 125 MG PO ×3 (06:39→21:19)
[2017-12-25] MEDS: Furosemide 20 MG Tablet PO ×2 (06:39→13:02)
[2017-12-25] MEDS: Enoxaparin 40 MG/0.4 ML Syringe SC (06:42)
[2017-12-25 07:06] LABS: Bedside Glucose 99 mg/dL (70-110)
[2017-12-25 07:42] VITALS: O2SAT 95
--- NOTE | 2017-12-25 08:32 | NURSING ---
Pt moved in the chair and states the wound VAC drape loosened. had patient stand. leak fixed at this time. Good seal noted at 150mmHg low continuous suction. Pt tolerated well.
[2017-12-25 09:27] VITALS: PULSE 60; RESP 16
[2017-12-25 11:25] LABS: Bedside Glucose 167 mg/dL (70-110)
[2017-12-25] MEDS: Insulin Lispro 100 UNIT/ML INSULN.PEN SQ ×2 (11:42→17:24)
[2017-12-25 16:00] VITALS: BP 122/74; PULSE 66; RESP 18; TEMP 36.9; O2SAT 97
[2017-12-25 17:05] LABS: Bedside Glucose 209 mg/dL (70-110)
[2017-12-25 21:01] LABS: Bedside Glucose 116 mg/dL (70-110)
--- NOTE | 2017-12-25 21:31 | NURSING ---
Addendum entered by Mercedez Hylton 12/25/17 21:45: Dr Branch notified. N.O. for 300mg gabapentin @ HS, and 0.5 mg xanax PRN. Original Note: pt c/o of neuropathy in hands and feet and feeling anxiety at this time. asked how long she has been experiencing this she stated awhile now. stated she would like for us to see if she could get a order for this tonight. communicated it with the nurse ZHENG Philippe.
[2017-12-25] MEDS: Gabapentin 300 MG Capsule PO (22:23)
[2017-12-25] MEDS: ALPRAZolam 0.5 MG Tablet PO (22:25)
[2017-12-26] MEDS: Nystatin Powder 15gm Bottle 1 APPLIC TOPICAL ×2 (05:51→22:18)
[2017-12-26] MEDS: 0.9% NaCl PICC Flush IV ×3 (05:58→22:13)
[2017-12-26] MEDS: dilTIAZem CD 120 MG Capsule PO ×2 (06:09→19:24)
[2017-12-26] MEDS: Pantoprazole Sodium 40 MG Tablet PO (06:09)
[2017-12-26] MEDS: AcetaZOLAMIDE 250 MG Tablet 125 MG PO ×3 (06:09→22:12)
[2017-12-26] MEDS: Bisacodyl 5 MG Tablet 10 MG PO (06:09)
[2017-12-26] MEDS: Furosemide 20 MG Tablet PO ×2 (06:09→14:00)
[2017-12-26] MEDS: Iron Polysaccharide Complex 150 MG CAPSULE PO ×2 (06:09→19:23)
[2017-12-26 06:10] VITALS: BP 96/58; PULSE 58
[2017-12-26] MEDS: Enoxaparin 40 MG/0.4 ML Syringe SC (06:11)
[2017-12-26 06:15] LABS: Absolute Lymphocyte Count 1.31 X10^3/ul (0.83-4.51); Absolute Neutrophil Count 4.4 X10^3/uL (2.0-7.7); Basophil# 0.02 X10^3/uL; Basophil% 0.3 % (0-1); Eosinophil# 0.81 X10^3/uL; Eosinophils% 11.5 % (0-5); Hematocrit 29.6 % (37-47); Lymphocyte # 1.31 X10^3/ul (4.0); Lymphocyte % 18.6 % (19-41); Mean Corp Hgb Conc 30.4 g/gl (32-36); Mean Corpuscular Hgb 27.9 pg (27.0-32.0); Mean Corpuscular Volume 91.6 fL (81-99); Mean Platelet Vol. 9.2 fl (6.2-12.0); Monocyte# 0.46 X10^3/uL; Monocyte% 6.5 % (0-10); Neutrophil # 4.43 X10^3/uL (2.7-7.7); Neutrophil % 62.7 % (47-70); Platelet Count 184 K/mm3 (150-450); RBC Distribution Width CV 16.9 % (11.6-14.6); RBC Distribution Width SD 55.7 fl (35.1-43.9); Red Blood Count 3.23 M/mm3 (4.2-5.4); White Blood Count 7.1 K/mm3 (4.4-11.0)
[2017-12-26 06:19] LABS: Anion Gap 8 (5-15); BUN 51 mg/dL (7-18); BUN/Creat Ratio 55.6 RATIO (10-20); Calcium,Total 8.7 mg/dL (8.5-10.1); Chloride 107 mmol/L (98-107); Creatinine, Serum 0.92 mg/dL (0.55-1.02); EST Glomerular Filtration Rate 68 mL/min (>60); Est Glom Filt Rate - Afr Amer 83 mL/min (>60); Estimated Creatinine Clearance 51.38 ml/min; Glucose 99 mg/dL (74-106); Potassium 4.1 mmol/L (3.5-5.1); Sodium Level 144 mmol/L (136-145)
[2017-12-26 06:20] LABS: POSITIVE COUNT NO; POSITIVE DIFFERENTIAL NO; POSITIVE MORPHOLOGY NO
[2017-12-26 07:15] VITALS: O2SAT 97
[2017-12-26 07:15] LABS: Bedside Glucose 104 mg/dL (70-110)
--- NOTE | 2017-12-26 07:26 | NURSING ---
Addendum entered by Silvia Ureña 12/26/17 07:27: DenaeRN notified of BP Original Note: held pt BP med 96/58 pulse 58
[2017-12-26 11:15] LABS: Bedside Glucose 130 mg/dL (70-110)
[2017-12-26] MEDS: 0.9% NaCl IVPB Med Flush (250 mL) 15 ML IV (14:06)
[2017-12-26 16:00] VITALS: BP 134/70; PULSE 73; RESP 20; TEMP 36.3; O2SAT 90
[2017-12-26 17:05] LABS: Bedside Glucose 144 mg/dL (70-110)
[2017-12-26 21:41] LABS: Bedside Glucose 167 mg/dL (70-110)
[2017-12-26] MEDS: ALPRAZolam 0.5 MG Tablet PO (22:12)
[2017-12-26] MEDS: Gabapentin 300 MG Capsule PO (22:12)
--- NOTE | 2017-12-26 22:45 | NURSING ---
Addendum entered by Lilly Kwong 12/27/17 07:13: AccessRN notified at this time of needing a PICC line. States they will call back with ETA. Original Note: Addendum entered by Lilly Kwong 12/27/17 00:16: PICC line removed at this time. Tip intact at 44cm. Tegaderm applied with petrolatum and 2x2. No bleeding noted at sited. Pt tolerated well. No SOB or pain noted from pt. Encouraged pt to let staff know if she notices any blood around dressing. Pt resting comfortably in bed with call light in reach. Original Note: this nurse into reel hooker antibiotics. PICC noted to be at 4cm and was charted last HS at 4cm. On insertion it was at 0cm. Dr. Branch updated. NO to D/C PICC line, insert a peripheral line and order a new PICC line on 12/27.
[2017-12-27] MEDS: Petrolatum,White 5 GM PACKET 1 APPLIC TOPICAL (00:23)
[2017-12-27] MEDS: Bisacodyl 5 MG Tablet 10 MG PO (05:30)
[2017-12-27] MEDS: Furosemide 20 MG Tablet PO ×2 (05:30→12:55)
[2017-12-27] MEDS: Enoxaparin 40 MG/0.4 ML Syringe SC (05:30)
[2017-12-27] MEDS: Pantoprazole Sodium 40 MG Tablet PO (05:30)
[2017-12-27] MEDS: dilTIAZem CD 120 MG Capsule PO ×2 (05:30→17:27)
[2017-12-27] MEDS: Iron Polysaccharide Complex 150 MG CAPSULE PO ×2 (05:30→17:30)
[2017-12-27] MEDS: Nystatin Powder 15gm Bottle 1 APPLIC TOPICAL ×2 (05:31→21:36)
[2017-12-27] MEDS: AcetaZOLAMIDE 250 MG Tablet 125 MG PO ×3 (05:32→21:32)
[2017-12-27 05:34] VITALS: BP 128/65; PULSE 72
[2017-12-27] MEDS: Metoprolol(XL)Succ 25 MG Tablet PO (05:34)
[2017-12-27 07:15] LABS: Bedside Glucose 111 mg/dL (70-110)
--- NOTE | 2017-12-27 11:14 | CPS ---
3 lpm at night
[2017-12-27 11:36] LABS: Bedside Glucose 152 mg/dL (70-110)
[2017-12-27] MEDS: Insulin Lispro 100 UNIT/ML INSULN.PEN SQ (11:54)
[2017-12-27] MEDS: 0.9% NaCl PICC Flush IV ×2 (12:57→21:31)
[2017-12-27 15:42] VITALS: BP 116/57; PULSE 72; RESP 16; TEMP 36.1; O2SAT 97
[2017-12-27 17:15] LABS: Bedside Glucose 146 mg/dL (70-110)
[2017-12-27] MEDS: 0.9% NaCl IVPB Med Flush (250 mL) 15 ML IV (21:24)
[2017-12-27] MEDS: Gabapentin 300 MG Capsule PO (21:32)
[2017-12-27 22:06] LABS: Bedside Glucose 128 mg/dL (70-110)
[2017-12-27 23:07] VITALS: PULSE 72; RESP 18; O2SAT 99
[2017-12-28] MEDS: 0.9% NaCl PICC Flush IV ×5 (06:40→22:06)
[2017-12-28] MEDS: AcetaZOLAMIDE 250 MG Tablet 125 MG PO ×3 (06:43→22:02)
[2017-12-28] MEDS: dilTIAZem CD 120 MG Capsule PO ×2 (06:43→17:38)
[2017-12-28] MEDS: Iron Polysaccharide Complex 150 MG CAPSULE PO ×2 (06:43→17:38)
[2017-12-28 06:44] VITALS: BP 105/62; PULSE 68
[2017-12-28] MEDS: Pantoprazole Sodium 40 MG Tablet PO (06:44)
[2017-12-28] MEDS: Metoprolol(XL)Succ 25 MG Tablet PO (06:44)
[2017-12-28] MEDS: Furosemide 20 MG Tablet PO ×2 (06:44→14:58)
[2017-12-28] MEDS: Bisacodyl 5 MG Tablet 10 MG PO (06:44)
[2017-12-28] MEDS: Enoxaparin 40 MG/0.4 ML Syringe SC (06:46)
[2017-12-28] MEDS: Nystatin Powder 15gm Bottle 1 APPLIC TOPICAL ×2 (06:48→22:12)
[2017-12-28 07:16] LABS: Bedside Glucose 116 mg/dL (70-110)
[2017-12-28 11:25] LABS: Bedside Glucose 127 mg/dL (70-110)
[2017-12-28 16:00] VITALS: BP 125/70; PULSE 68; RESP 18; TEMP 36.3; O2SAT 99
--- NOTE | 2017-12-28 16:28 | NURSING ---
THIS NURSE REINFORCED PT WOUND VAC. PT TOLERATED WELL.
[2017-12-28 16:56] LABS: Bedside Glucose 139 mg/dL (70-110)
[2017-12-28 21:36] LABS: Bedside Glucose 130 mg/dL (70-110)
[2017-12-28] MEDS: Gabapentin 300 MG Capsule PO (22:03)
[2017-12-28 22:25] VITALS: PULSE 75; O2SAT 96
[2017-12-28] MEDS: ALPRAZolam 0.5 MG Tablet PO (22:52)
[2017-12-29] MEDS: 0.9% NaCl PICC Flush IV (06:35)
[2017-12-29] MEDS: Enoxaparin 40 MG/0.4 ML Syringe SC (06:41)
[2017-12-29 06:42] VITALS: BP 107/67; PULSE 68
[2017-12-29] MEDS: dilTIAZem CD 120 MG Capsule PO ×2 (06:42→17:52)
[2017-12-29] MEDS: Metoprolol(XL)Succ 25 MG Tablet PO (06:42)
[2017-12-29] MEDS: Bisacodyl 5 MG Tablet 10 MG PO (06:42)
[2017-12-29] MEDS: Iron Polysaccharide Complex 150 MG CAPSULE PO ×2 (06:43→17:52)
[2017-12-29] MEDS: AcetaZOLAMIDE 250 MG Tablet 125 MG PO ×3 (06:43→21:32)
[2017-12-29] MEDS: Furosemide 20 MG Tablet PO ×2 (06:43→12:58)
[2017-12-29] MEDS: Pantoprazole Sodium 40 MG Tablet PO (06:43)
[2017-12-29] MEDS: Nystatin Powder 15gm Bottle 1 APPLIC TOPICAL ×2 (06:46→21:33)
[2017-12-29 07:25] LABS: Bedside Glucose 115 mg/dL (70-110)
[2017-12-29 08:35] VITALS: PULSE 68; RESP 16
[2017-12-29 11:00] VITALS: O2SAT 96
[2017-12-29 11:26] LABS: Bedside Glucose 182 mg/dL (70-110)
[2017-12-29] MEDS: Insulin Lispro 100 UNIT/ML INSULN.PEN SQ (11:38)
--- NOTE | 2017-12-29 12:42 | CPS ---
Patient wears 4lpm nc at night instead of CPAP. Patient reports wearing it this AM.
--- NOTE | 2017-12-29 15:45 | NURSING ---
pt was getting cleaned up and moved to room TCU9. Discussed with nurse that they could apply a wet to dry dressing if they did not have time to apply the wound VAC. will check in am. If VAC needs placed, this nurse will apply tomorrow.
--- NOTE | 2017-12-29 16:14 | NURSING ---
WOUND VAC DRESSING REMOVED D/T LEAK, REPLACED WITH WTD NS SOAKED KERLIEX, COVERED WITH 4X4 AND ABD'S. PT TOLERATED WELL.
[2017-12-29 17:01] LABS: Bedside Glucose 139 mg/dL (70-110)
[2017-12-29 21:11] LABS: Bedside Glucose 133 mg/dL (70-110)
[2017-12-29] MEDS: Gabapentin 300 MG Capsule PO (21:33)
[2017-12-30] MEDS: AcetaZOLAMIDE 250 MG Tablet 125 MG PO ×3 (06:34→21:41)
[2017-12-30] MEDS: Bisacodyl 5 MG Tablet 10 MG PO (06:34)
[2017-12-30] MEDS: dilTIAZem CD 120 MG Capsule PO ×2 (06:34→17:56)
[2017-12-30 06:35] VITALS: BP 117/56; PULSE 72
[2017-12-30] MEDS: Enoxaparin 40 MG/0.4 ML Syringe SC (06:35)
[2017-12-30] MEDS: Furosemide 20 MG Tablet PO ×2 (06:35→15:11)
[2017-12-30] MEDS: Metoprolol(XL)Succ 25 MG Tablet PO (06:35)
[2017-12-30] MEDS: Pantoprazole Sodium 40 MG Tablet PO (06:35)
[2017-12-30] MEDS: Nystatin Powder 15gm Bottle 1 APPLIC TOPICAL ×2 (06:35→21:47)
[2017-12-30] MEDS: Iron Polysaccharide Complex 150 MG CAPSULE PO ×2 (06:35→17:56)
[2017-12-30] MEDS: 0.9% NaCl PICC Flush IV ×3 (06:36→21:35)
[2017-12-30 07:20] LABS: Bedside Glucose 112 mg/dL (70-110)
[2017-12-30 07:42] VITALS: O2SAT 96
[2017-12-30 11:26] LABS: Bedside Glucose 138 mg/dL (70-110)
--- NOTE | 2017-12-30 14:43 | CHAPLAIN ---
Type of Pastoral Visit ___ Initial Visit _x__ Follow-up Visit ___ On-call Visit ___ General Patient Visit ___ Spiritual Assessment ___ Family Conference ___ Bereavement ___ Rapid Response ___ Code Blue ___ Other (describe below) Pastoral Care Referral From _x__ Patient ___ Family ___ Nurse ___ Physician ___ Wafer Cleaner ___ Certified Wellness Program Manager ___ Other (describe below) Sacrament/Intervention _x__ Active listening ___ Anointing ___ Methodist ___ Bereavement ___ Communion _x__ Shiela exploration ___ _x__ Life review _x__ Prayer ___ Reconciliation ___ Sacrament of Sick _x__ Supportive presence ___ Wedding ___ Other (describe below) Pastoral Comments patient requested a Bible and one was delivered to her
--- NOTE | 2017-12-30 15:32 | NURSING ---
wound photo: left upper medial thigh
[2017-12-30 15:54] VITALS: BP 110/61; PULSE 71; RESP 20; TEMP 36.4; O2SAT 97
[2017-12-30 17:01] LABS: Bedside Glucose 120 mg/dL (70-110)
[2017-12-30] MEDS: 0.9% NaCl IVPB Med Flush (250 mL) 15 ML IV (21:31)
[2017-12-30] MEDS: Gabapentin 300 MG Capsule PO (21:41)
[2017-12-30] MEDS: ALPRAZolam 0.5 MG Tablet PO (21:46)
[2017-12-30 21:50] LABS: Bedside Glucose 151 mg/dL (70-110)
[2017-12-31] MEDS: 0.9% NaCl PICC Flush IV ×3 (05:39→20:55)
[2017-12-31] MEDS: Furosemide 20 MG Tablet PO ×2 (06:09→13:36)
[2017-12-31] MEDS: Iron Polysaccharide Complex 150 MG CAPSULE PO ×2 (06:10→17:26)
[2017-12-31] MEDS: AcetaZOLAMIDE 250 MG Tablet 125 MG PO ×3 (06:10→21:04)
[2017-12-31] MEDS: Pantoprazole Sodium 40 MG Tablet PO (06:10)
[2017-12-31] MEDS: dilTIAZem CD 120 MG Capsule PO ×2 (06:10→17:26)
[2017-12-31] MEDS: Bisacodyl 5 MG Tablet 10 MG PO (06:10)
[2017-12-31] MEDS: Enoxaparin 40 MG/0.4 ML Syringe SC (06:11)
[2017-12-31] MEDS: Nystatin Powder 15gm Bottle 1 APPLIC TOPICAL ×2 (06:11→21:05)
[2017-12-31 06:13] VITALS: BP 109/63; PULSE 66
[2017-12-31] MEDS: Metoprolol(XL)Succ 25 MG Tablet PO (06:13)
[2017-12-31 07:11] LABS: Bedside Glucose 98 mg/dL (70-110)
--- NOTE | 2017-12-31 09:20 | NURSING ---
Pt wound vac reinforced by this nurse at this time, wound vac now showing no leaks, wound vac intact and running at 150cc/hr
[2017-12-31 10:00] VITALS: PULSE 60; RESP 18; O2SAT 96
[2017-12-31 11:31] VITALS: O2SAT 92
[2017-12-31 11:41] LABS: Bedside Glucose 140 mg/dL (70-110)
[2017-12-31 15:41] VITALS: BP 129/72; PULSE 70; RESP 22; TEMP 36.2; O2SAT 95
[2017-12-31 17:00] LABS: Bedside Glucose 161 mg/dL (70-110)
[2017-12-31] MEDS: Insulin Lispro 100 UNIT/ML INSULN.PEN SQ (17:26)
[2017-12-31 20:55] LABS: Bedside Glucose 153 mg/dL (70-110)
[2017-12-31] MEDS: 0.9% NaCl IVPB Med Flush (250 mL) 15 ML IV (20:55)
[2017-12-31] MEDS: Gabapentin 300 MG Capsule PO (21:04)
[2017-12-31] MEDS: Acetaminophen 500 MG Tablet 1000 MG PO (21:04)
[2017-12-31] MEDS: ALPRAZolam 0.5 MG Tablet PO (21:04)
[2018-01-01] MEDS: 0.9% NaCl PICC Flush IV (06:54)
[2018-01-01] MEDS: Pantoprazole Sodium 40 MG Tablet PO (06:57)
[2018-01-01] MEDS: Bisacodyl 5 MG Tablet 10 MG PO (06:57)
[2018-01-01] MEDS: AcetaZOLAMIDE 250 MG Tablet 125 MG PO ×3 (06:57→22:13)
[2018-01-01] MEDS: Nystatin Powder 15gm Bottle 1 APPLIC TOPICAL ×2 (06:57→22:10)
[2018-01-01] MEDS: Furosemide 20 MG Tablet PO ×2 (06:57→13:26)
[2018-01-01 06:58] VITALS: BP 114/52; PULSE 75
[2018-01-01] MEDS: Metoprolol(XL)Succ 25 MG Tablet PO (06:58)
[2018-01-01] MEDS: dilTIAZem CD 120 MG Capsule PO ×2 (06:58→17:21)
[2018-01-01] MEDS: Enoxaparin 40 MG/0.4 ML Syringe SC (06:58)
[2018-01-01] MEDS: Iron Polysaccharide Complex 150 MG CAPSULE PO ×2 (06:58→17:21)
[2018-01-01 07:01] LABS: Bedside Glucose 105 mg/dL (70-110)
[2018-01-01 07:38] VITALS: O2SAT 94
[2018-01-01 11:01] LABS: Bedside Glucose 175 mg/dL (70-110)
[2018-01-01] MEDS: Insulin Lispro 100 UNIT/ML INSULN.PEN SQ (11:18)
--- NOTE | 2018-01-01 14:39 | NURSING ---
wound nurse here and changed vac to left post thigh. pt tolerated well. Healing. much improved.
[2018-01-01 15:47] VITALS: BP 110/55; PULSE 76; RESP 20; TEMP 36.8; O2SAT 97
[2018-01-01 17:16] LABS: Bedside Glucose 139 mg/dL (70-110)
[2018-01-01 20:56] LABS: Bedside Glucose 138 mg/dL (70-110)
[2018-01-01] MEDS: 0.9% NaCl IVPB Med Flush (250 mL) 15 ML IV (22:02)
[2018-01-01] MEDS: Gabapentin 300 MG Capsule PO (22:13)
[2018-01-02] MEDS: 0.9% NaCl PICC Flush IV ×3 (05:57→23:24)
[2018-01-02] MEDS: dilTIAZem CD 120 MG Capsule PO ×2 (06:08→17:24)
[2018-01-02] MEDS: Bisacodyl 5 MG Tablet 10 MG PO (06:08)
[2018-01-02] MEDS: Iron Polysaccharide Complex 150 MG CAPSULE PO ×2 (06:08→17:24)
[2018-01-02] MEDS: Furosemide 20 MG Tablet PO ×2 (06:08→13:27)
[2018-01-02] MEDS: Nystatin Powder 15gm Bottle 1 APPLIC TOPICAL ×2 (06:09→20:49)
[2018-01-02] MEDS: Pantoprazole Sodium 40 MG Tablet PO (06:09)
[2018-01-02] MEDS: AcetaZOLAMIDE 250 MG Tablet 125 MG PO ×3 (06:09→20:53)
[2018-01-02] MEDS: Enoxaparin 40 MG/0.4 ML Syringe SC (06:09)
[2018-01-02 06:10] VITALS: BP 114/65; PULSE 73
[2018-01-02] MEDS: Metoprolol(XL)Succ 25 MG Tablet PO (06:10)
[2018-01-02 06:29] LABS: Absolute Lymphocyte Count 1.11 X10^3/ul (0.83-4.51); Absolute Neutrophil Count 3.8 X10^3/uL (2.0-7.7); Basophil# 0.01 X10^3/uL; Basophil% 0.2 % (0-1); Eosinophil# 0.42 X10^3/uL; Eosinophils% 7.3 % (0-5); Hematocrit 27.3 % (37-47); Hemoglobin 8.2 g/dl (12.0-15.0); Lymphocyte # 1.11 X10^3/ul (4.0); Lymphocyte % 19.2 % (19-41); Mean Corpuscular Hgb 28.1 pg (27.0-32.0); Mean Corpuscular Volume 93.5 fL (81-99); Mean Platelet Vol. 8.8 fl (6.2-12.0); Monocyte# 0.39 X10^3/uL; Monocyte% 6.7 % (0-10); Neutrophil # 3.84 X10^3/uL (2.7-7.7); Neutrophil % 66.3 % (47-70); Platelet Count 163 K/mm3 (150-450); RBC Distribution Width CV 16.8 % (11.6-14.6); RBC Distribution Width SD 56.6 fl (35.1-43.9); Red Blood Count 2.92 M/mm3 (4.2-5.4); White Blood Count 5.8 K/mm3 (4.4-11.0)
[2018-01-02 06:30] LABS: Bedside Glucose 127 mg/dL (70-110)
[2018-01-02 06:38] LABS: Anion Gap 6 (5-15); BUN 40 mg/dL (7-18); BUN/Creat Ratio 48.2 RATIO (10-20); Calcium,Total 8.4 mg/dL (8.5-10.1); Chloride 110 mmol/L (98-107); Creatinine, Serum 0.83 mg/dL (0.55-1.02); EST Glomerular Filtration Rate 77 mL/min (>60); Est Glom Filt Rate - Afr Amer 93 mL/min (>60); Estimated Creatinine Clearance 56.95 ml/min; Glucose 126 mg/dL (74-106); Sodium Level 146 mmol/L (136-145)
[2018-01-02 06:45] LABS: POSITIVE COUNT NO; POSITIVE DIFFERENTIAL NO; POSITIVE MORPHOLOGY NO
[2018-01-02 07:00] VITALS: O2SAT 97
[2018-01-02 11:56] LABS: Bedside Glucose 173 mg/dL (70-110)
[2018-01-02] MEDS: Insulin Lispro 100 UNIT/ML INSULN.PEN SQ ×2 (12:02→17:26)
[2018-01-02 15:37] VITALS: BP 133/60; PULSE 70; RESP 18; TEMP 23.3; O2SAT 92
[2018-01-02 17:05] LABS: Bedside Glucose 156 mg/dL (70-110)
[2018-01-02] MEDS: Gabapentin 300 MG Capsule PO (20:53)
[2018-01-02] MEDS: ALPRAZolam 0.5 MG Tablet PO (20:58)
[2018-01-02 21:06] LABS: Bedside Glucose 149 mg/dL (70-110)
--- NOTE | 2018-01-02 21:10 | NURSING ---
wound vac reinforced to left posterior thigh d/t leaking. pt tolerated well, wound vac running at this time @ 150mmHg
[2018-01-02 22:00] VITALS: PULSE 70; RESP 16
[2018-01-03] MEDS: Iron Polysaccharide Complex 150 MG CAPSULE PO ×2 (07:02→18:51)
[2018-01-03 07:03] VITALS: BP 114/64; PULSE 80
[2018-01-03] MEDS: Enoxaparin 40 MG/0.4 ML Syringe SC (07:03)
[2018-01-03] MEDS: Bisacodyl 5 MG Tablet 10 MG PO (07:03)
[2018-01-03] MEDS: Metoprolol(XL)Succ 25 MG Tablet PO (07:03)
[2018-01-03] MEDS: Furosemide 20 MG Tablet PO ×2 (07:03→14:24)
[2018-01-03] MEDS: dilTIAZem CD 120 MG Capsule PO ×2 (07:06→18:51)
[2018-01-03] MEDS: Pantoprazole Sodium 40 MG Tablet PO (07:07)
[2018-01-03] MEDS: AcetaZOLAMIDE 250 MG Tablet 125 MG PO ×3 (07:08→21:03)
[2018-01-03] MEDS: Nystatin Powder 15gm Bottle 1 APPLIC TOPICAL ×2 (07:10→21:03)
[2018-01-03 07:11] LABS: Bedside Glucose 106 mg/dL (70-110)
[2018-01-03 07:34] VITALS: O2SAT 94
[2018-01-03 11:50] LABS: Bedside Glucose 137 mg/dL (70-110)
[2018-01-03 15:39] VITALS: BP 112/66; PULSE 72; RESP 16; TEMP 36.2; O2SAT 97
[2018-01-03 17:06] LABS: Bedside Glucose 126 mg/dL (70-110)
[2018-01-03] MEDS: Gabapentin 300 MG Capsule PO (21:04)
[2018-01-03] MEDS: ALPRAZolam 0.5 MG Tablet PO (21:12)
[2018-01-03] MEDS: 0.9% NaCl PICC Flush IV (21:14)
[2018-01-03 21:15] LABS: Bedside Glucose 130 mg/dL (70-110)
[2018-01-04] MEDS: AcetaZOLAMIDE 250 MG Tablet 125 MG PO ×3 (06:08→20:40)
[2018-01-04] MEDS: dilTIAZem CD 120 MG Capsule PO ×2 (06:08→17:11)
[2018-01-04] MEDS: Bisacodyl 5 MG Tablet 10 MG PO (06:08)
[2018-01-04 06:09] VITALS: BP 112/54; PULSE 74
[2018-01-04] MEDS: Furosemide 20 MG Tablet PO ×2 (06:09→13:09)
[2018-01-04] MEDS: Pantoprazole Sodium 40 MG Tablet PO (06:09)
[2018-01-04] MEDS: Metoprolol(XL)Succ 25 MG Tablet PO (06:09)
[2018-01-04] MEDS: Enoxaparin 40 MG/0.4 ML Syringe SC (06:09)
[2018-01-04] MEDS: Iron Polysaccharide Complex 150 MG CAPSULE PO ×2 (06:09→17:11)
[2018-01-04] MEDS: Nystatin Powder 15gm Bottle 1 APPLIC TOPICAL ×2 (06:09→20:41)
[2018-01-04] MEDS: 0.9% NaCl IVPB Med Flush (250 mL) 15 ML IV (06:14)
[2018-01-04] MEDS: 0.9% NaCl PICC Flush IV ×3 (06:14→21:21)
[2018-01-04 06:55] VITALS: O2SAT 98
[2018-01-04 07:01] LABS: Bedside Glucose 124 mg/dL (70-110)
[2018-01-04 11:56] LABS: Bedside Glucose 128 mg/dL (70-110)
[2018-01-04] MEDS: Acetaminophen 500 MG Tablet 1000 MG PO (13:12)
[2018-01-04 16:00] VITALS: BP 124/67; PULSE 72; RESP 17; TEMP 36.6; O2SAT 95
[2018-01-04 17:06] LABS: Bedside Glucose 138 mg/dL (70-110)
[2018-01-04] MEDS: Gabapentin 300 MG Capsule PO (20:41)
--- NOTE | 2018-01-04 20:44 | NURSING ---
Wound vac reinforced at this time. Pt tolerated well.
[2018-01-04 21:11] LABS: Bedside Glucose 137 mg/dL (70-110)
--- NOTE | 2018-01-04 21:32 | NURSING ---
Pt c/o pain and spasms to neck this evening. Pt states flexeril is the only med that has helped me with this type of pain. Merrick Oglesby NP notified. N.O. for Flexeril 10mg TID PRN.
[2018-01-05 05:12] LABS: Absolute Lymphocyte Count 1.15 X10^3/ul (0.83-4.51); Absolute Neutrophil Count 4.4 X10^3/uL (2.0-7.7); Basophil# 0.03 X10^3/uL; Basophil% 0.5 % (0-1); Eosinophils% 7.6 % (0-5); Hematocrit 27.2 % (37-47); Hemoglobin 8.4 g/dl (12.0-15.0); Lymphocyte # 1.15 X10^3/ul (4.0); Lymphocyte % 17.4 % (19-41); Mean Corp Hgb Conc 30.9 g/gl (32-36); Mean Corpuscular Hgb 29.3 pg (27.0-32.0); Mean Corpuscular Volume 94.8 fL (81-99); Mean Platelet Vol. 8.7 fl (6.2-12.0); Monocyte% 7.6 % (0-10); Neutrophil # 4.36 X10^3/uL (2.7-7.7); Platelet Count 163 K/mm3 (150-450); RBC Distribution Width CV 16.6 % (11.6-14.6); RBC Distribution Width SD 54.1 fl (35.1-43.9); Red Blood Count 2.87 M/mm3 (4.2-5.4); White Blood Count 6.6 K/mm3 (4.4-11.0)
[2018-01-05 06:05] LABS: POSITIVE COUNT NO; POSITIVE DIFFERENTIAL NO; POSITIVE MORPHOLOGY NO
[2018-01-05] MEDS: Enoxaparin 40 MG/0.4 ML Syringe SC (06:26)
[2018-01-05] MEDS: Iron Polysaccharide Complex 150 MG CAPSULE PO ×2 (06:26→17:12)
[2018-01-05] MEDS: Bisacodyl 5 MG Tablet 10 MG PO (06:26)
[2018-01-05] MEDS: Furosemide 20 MG Tablet PO ×2 (06:26→13:56)
[2018-01-05] MEDS: AcetaZOLAMIDE 250 MG Tablet 125 MG PO ×3 (06:26→21:19)
[2018-01-05] MEDS: dilTIAZem CD 120 MG Capsule PO ×2 (06:26→17:12)
[2018-01-05 06:27] VITALS: BP 110/61; PULSE 69
[2018-01-05] MEDS: Pantoprazole Sodium 40 MG Tablet PO (06:27)
[2018-01-05] MEDS: Metoprolol(XL)Succ 25 MG Tablet PO (06:27)
[2018-01-05] MEDS: Nystatin Powder 15gm Bottle 1 APPLIC TOPICAL ×2 (06:27→21:07)
[2018-01-05] MEDS: 0.9% NaCl PICC Flush IV ×3 (06:28→21:06)
[2018-01-05 07:06] LABS: Bedside Glucose 112 mg/dL (70-110)
--- NOTE | 2018-01-05 11:29 | NURSING ---
Merrick Oglesby MANAGER OF INFORMATION reviewed CBC, NNO
[2018-01-05 11:31] LABS: Bedside Glucose 160 mg/dL (70-110)
[2018-01-05] MEDS: Insulin Lispro 100 UNIT/ML INSULN.PEN SQ (11:54)
--- NOTE | 2018-01-05 14:40 | PCM.PN.RX ---
<Tiffaniemaria dsheylaKunal D - Last Filed: 01/05/18 14:40> Progress Note - Pharmacy Subjective: [facility] Monthly Note Objective: Allergies latex Allergy (Verified 08/05/17 21:19) Rash levofloxacin [From Levaquin] Adverse Reaction (Verified 08/05/17 21:19) SPEEDS UP MY HEART AND SHUTS DOWN MY KIDNEYS mushrooms Allergy (Uncoded 08/05/17 21:19) Anaphylaxis STRAWBERRIES Allergy (Uncoded 08/05/17 21:19) Rash Current Medications Generic Name Dose Route Start Last Admin Trade Name Freq PRN Reason Stop Dose Admin Acetaminophen 1,000 mg 11/14/17 17:11 01/04/18 13:12 Tylenol PO 1,000 mg Q8H PRN Administration .MILD PAIN Acetazolamide 125 mg 11/14/17 22:00 01/05/18 13:56 Diamox PO 125 mg TID ANIA Administration Alprazolam 0.5 mg 12/25/17 21:43 01/03/18 21:12 Xanax PO 0.5 mg Q6H PRN PRN Administration ANXIETY Bisacodyl 10 mg 12/16/17 06:00 01/05/18 06:26 Dulcolax PO 10 mg DAILY ANIA Administration Cyclobenzaprine HCl 10 mg 01/04/18 21:34 01/05/18 06:36 Flexeril PO 10 mg TID PRN PRN Administration muscle spasms Dextrose 0 gm 11/14/17 17:21 [id number] Syringe IV X1 PRN Hypoglycemia Protocol Diltiazem HCl 120 mg 11/14/17 18:00 01/05/18 06:26 Cardizem Cd PO 120 mg BID ANIA Administration Emollient Ointment 1 applic 11/29/17 22:00 01/05/18 06:26 Eucerin Intensive Repair TOPICAL 1 applicatio 0600,2200 ANIA Administration Protocol Enoxaparin Sodium 40 mg 11/15/17 06:00 01/05/18 06:26 Lovenox SC 40 mg DAILY@0600 ANIA Administration Furosemide 20 mg 11/15/17 06:00 01/05/18 13:56 Lasix PO 20 mg BIDLX ANIA Administration Gabapentin 300 mg 12/25/17 22:00 01/04/18 20:41 Neurontin PO 300 mg HS ANIA Administration Glucagon 1 mg 11/14/17 17:21 IM .X1 PRN Hypoglycemia Heparin Sodium (Beef Lung) 500 unit 11/26/17 20:28 Heparin 500 Unit/5 Ml (100/Ml) IV UD PRN HEPARIN FLUSH Sodium Chloride 250 mls @ 15 mls/hr 11/26/17 20:28 01/04/18 06:14 IV 15 mls/hr .[id number] PRN Administration SALINE FLUSH Meropenem 500 mg/ Sodium 60 mls @ 100 mls/hr 11/29/17 22:00 01/05/18 14:06 Chloride IV 100 mls/hr Q8 ANIA Administration Insulin Human Lispro 0 unit 11/15/17 06:45 01/05/18 11:54 Humalog Kwikpen (Bkc) SQ 1 u TIDAC ANIA Administration Protocol Metoprolol Succinate 25 mg 11/15/17 06:00 01/05/18 06:27 Toprol Xl (Beta Vikki) PO 25 mg DAILY ANIA Administration Nutritional Formula 1 packet 11/27/17 08:00 01/05/18 07:57 Saul - [place] Flavor PO 1 packet BIDCM ANIA Administration Nystatin 1 applic 11/29/17 22:00 01/05/18 06:27 Mycostatin Powder TOPICAL 1 applicatio 0600,2200 ANIA Administration Pantoprazole Sodium 40 mg 11/15/17 06:00 01/05/18 06:27 Protonix PO 40 mg DAILY ANIA Administration Polysaccharide Iron Complex 150 mg 11/16/17 18:00 01/05/18 06:26 Ferrex 150 PO 150 mg BID ANIA Administration Sodium Chloride 10 - 20 ml 11/26/17 20:28 01/05/18 14:06 IV 20 ml UD PRN Administration PICC FLUSH Sodium Hypochlorite 1 applic 11/25/17 18:00 01/05/18 06:26 Dakins Solution 0.25% (1/2 Strength) TOPICAL Not Given BID [facility] Protocol Vital Signs Temp Pulse Resp BP Pulse Ox 97.8 F 69 17 110/61 95 01/04/18 16:00 01/05/18 06:27 01/04/18 16:00 01/05/18 06:27 01/04/18 16:00 Oxygen Flow Rate (L/min) 4 Oxygen Delivery Method Nasal Cannula Weight: 149.289 kg Body Mass Index (BMI) 66.4 Sodium 146 mmol/L (136-145) H 01/02/18 06:00 Potassium 4.0 mmol/L (3.5-5.1) 01/02/18 06:00 Chloride 110 mmol/L (98-107) H 01/02/18 06:00 Carbon Dioxide 30.0 mmol/L (21.0-32.0) 01/02/18 06:00 Anion Gap 6 (5-15) 01/02/18 06:00 BUN 40 mg/dL (7-18) H 01/02/18 06:00 Creatinine 0.83 mg/dL (0.55-1.02) 01/02/18 06:00 Est GFR (MDRD) Af Amer 93 mL/min (>60) 01/02/18 06:00 Est GFR (MDRD) Non-Af 77 mL/min (>60) 01/02/18 06:00 BUN/Creatinine Ratio 48.2 RATIO (10-20) H 01/02/18 06:00 Glucose 126 mg/dL (74-106) H 01/02/18 06:00 Random Vancomycin Cancelled 11/14/17 05:15 Assessment/Plan: 1) Pain APAP for mild pain, cyclobenzaprine for spasms, gabapentin at HS. Continue to monitor daily pain scores, prn medication use. 2) DM2 Insulin SS with meals. Avg BGT < 200 mg/dL. Continue to monitor BGT, s/s hyper/hypoglycemia. 3) Metabolic Alkalosis Acetazolamide 3x daily. Continue to monitor electrolytes. 4) CHF/AFib Diltiazem, metoprolol, furosemide. Continue to monitor BP/HR, renal function, electrolytes. 5) DVT PPx Enoxaparin daily. Continue to monitor s/s bleeding/clot. 6) Nutrition Fe, Saul. Continue to monitor clinically. 7) GI Pantoprazole daily. Continue to monitor s/s GI distress. 8) Derm Nystatin, emollient topically. Continue to monitor clinically. 9) ID Meropenem q8h for 6 weeks per documentation with no ordered stop date. Continue to monitor s/s infection. Psychotropic Medications: 10) Anxiety Alprazolam as needed. Continue to monitor s/s anxiety. Unnecessary Medications: None Bowel Regimen: 11) Bisacodyl daily. Continue to monitor for constipation/diarrhea. Date of Note:: 01/05/18 - Provider Comments Provider responsibility: Provider responsible to enter orders to implement recommendations <Jovani Branch Chi - Last Filed: 01/09/18 11:14> Progress Note - Pharmacy Subjective: [] Objective: Allergies latex Allergy (Verified 08/05/17 21:19) Rash levofloxacin [From Levaquin] Adverse Reaction (Verified 08/05/17 21:19) SPEEDS UP MY HEART AND SHUTS DOWN MY KIDNEYS mushrooms Allergy (Uncoded 08/05/17 21:19) Anaphylaxis STRAWBERRIES Allergy (Uncoded 08/05/17 21:19) Rash Current Medications Generic Name Dose Route Start Last Admin Trade Name Freq PRN Reason Stop Dose Admin Acetaminophen 1,000 mg 11/14/17 17:11 01/06/18 19:20 Tylenol PO 1,000 mg Q8H PRN Administration .MILD PAIN Acetazolamide 125 mg 11/14/17 22:00 01/09/18 06:17 Diamox PO 125 mg TID ANIA Administration Alprazolam 0.5 mg 12/25/17 21:43 01/03/18 21:12 Xanax PO 0.5 mg Q6H PRN PRN Administration ANXIETY Bisacodyl 10 mg 12/16/17 06:00 01/09/18 06:18 Dulcolax PO 10 mg DAILY ANIA Administration Cyclobenzaprine HCl 10 mg 01/04/18 21:34 01/08/18 22:45 Flexeril PO 10 mg TID PRN PRN Administration muscle spasms Dextrose 0 gm 11/14/17 17:21 D50w Syringe IV X1 PRN Hypoglycemia Protocol Diltiazem HCl 120 mg 11/14/17 18:00 01/09/18 06:18 Cardizem Cd PO 120 mg BID ANIA Administration Emollient Ointment 1 applic 11/29/17 22:00 01/09/18 06:24 Eucerin Intensive Repair TOPICAL 1 applicatio 0600,2200 ANIA Administration Protocol Enoxaparin Sodium 40 mg 11/15/17 06:00 01/09/18 06:18 Lovenox SC 40 mg DAILY@0600 ANIA Administration Furosemide 20 mg 11/15/17 06:00 01/09/18 06:17 Lasix PO 20 mg BIDLX ANIA Administration Gabapentin 300 mg 12/25/17 22:00 01/08/18 20:39 Neurontin PO 300 mg HS ANIA Administration Glucagon 1 mg 11/14/17 17:21 IM .X1 PRN Hypoglycemia Heparin Sodium (Beef Lung) 500 unit 11/26/17 20:28 Heparin 500 Unit/5 Ml (100/Ml) IV UD PRN HEPARIN FLUSH Sodium Chloride 250 mls @ 15 mls/hr 11/26/17 20:28 01/08/18 21:55 IV 15 mls/hr .[id number] PRN Administration SALINE FLUSH Meropenem 500 mg/ Sodium 60 mls @ 100 mls/hr 11/29/17 22:00 01/09/18 06:18 Chloride IV 100 mls/hr Q8 ANIA Administration Insulin Human Lispro 0 unit 11/15/17 06:45 01/09/18 08:19 Humalog Kwikpen (Bkc) SQ Not Given TIDAC [facility] Protocol Metoprolol Succinate 25 mg 11/15/17 06:00 01/09/18 06:17 Toprol Xl (Beta Vikki) PO 25 mg DAILY ANIA Administration Nutritional Formula 1 packet 11/27/17 08:00 01/09/18 08:19 Saul - [place] Flavor PO 1 packet BIDCM ANIA Administration Nystatin 1 applic 11/29/17 22:00 01/09/18 06:25 Mycostatin Powder TOPICAL 1 applicatio 0600,2200 ANIA Administration Pantoprazole Sodium 40 mg 11/15/17 06:00 01/09/18 06:18 Protonix PO 40 mg DAILY ANIA Administration Polysaccharide Iron Complex 150 mg 11/16/17 18:00 01/09/18 06:18 Ferrex 150 PO 150 mg BID ANIA Administration Sodium Chloride 10 - 20 ml 11/26/17 20:28 01/08/18 21:56 IV 20 ml UD PRN Administration PICC FLUSH Vital Signs Temp Pulse Resp BP Pulse Ox 97.4 F L 72 16 117/52 L 99 01/08/18 15:30 01/09/18 06:17 01/08/18 15:30 01/09/18 06:17 01/09/18 07:01 Oxygen Flow Rate (L/min) 4 Oxygen Delivery Method Nasal Cannula Weight: 149.856 kg Body Mass Index (BMI) 66.4 Sodium 146 mmol/L (136-145) H 01/02/18 06:00 Potassium 4.0 mmol/L (3.5-5.1) 01/02/18 06:00 Chloride 110 mmol/L (98-107) H 01/02/18 06:00 Carbon Dioxide 30.0 mmol/L (21.0-32.0) 01/02/18 06:00 Anion Gap 6 (5-15) 01/02/18 06:00 BUN 40 mg/dL (7-18) H 01/02/18 06:00 Creatinine 0.83 mg/dL (0.55-1.02) 01/02/18 06:00 Est GFR (MDRD) Af Amer 93 mL/min (>60) 01/02/18 06:00 Est GFR (MDRD) Non-Af 77 mL/min (>60) 01/02/18 06:00 BUN/Creatinine Ratio 48.2 RATIO (10-20) H 01/02/18 06:00 Glucose 126 mg/dL (74-106) H 01/02/18 06:00 Random Vancomycin Cancelled 11/14/17 05:15 Assessment/Plan: Psychotropic Medications: Unnecessary Medications: Bowel Regimen: - Provider Comments Provider responsibility: Provider responsible to enter orders to implement recommendations Provider Comments to Recommendations by Pharmacy: Agree
--- NOTE | 2018-01-05 14:45 | PHA.CONS_ITS ---
<Tiffaniemaria dsheylaKunal D - Last Filed: 01/05/18 14:40> Progress Note - Pharmacy Subjective: [facility] Monthly Note Objective: Allergies latex Allergy (Verified 08/05/17 21:19) Rash levofloxacin [From Levaquin] Adverse Reaction (Verified 08/05/17 21:19) SPEEDS UP MY HEART AND SHUTS DOWN MY KIDNEYS mushrooms Allergy (Uncoded 08/05/17 21:19) Anaphylaxis STRAWBERRIES Allergy (Uncoded 08/05/17 21:19) Rash Current Medications Generic Name Dose Route Start Last Admin Trade Name Freq PRN Reason Stop Dose Admin Acetaminophen 1,000 mg 11/14/17 17:11 01/04/18 13:12 Tylenol PO 1,000 mg Q8H PRN Administration .MILD PAIN Acetazolamide 125 mg 11/14/17 22:00 01/05/18 13:56 Diamox PO 125 mg TID ANIA Administration Alprazolam 0.5 mg 12/25/17 21:43 01/03/18 21:12 Xanax PO 0.5 mg Q6H PRN PRN Administration ANXIETY Bisacodyl 10 mg 12/16/17 06:00 01/05/18 06:26 Dulcolax PO 10 mg DAILY ANIA Administration Cyclobenzaprine HCl 10 mg 01/04/18 21:34 01/05/18 06:36 Flexeril PO 10 mg TID PRN PRN Administration muscle spasms Dextrose 0 gm 11/14/17 17:21 D50w Syringe IV X1 PRN Hypoglycemia Protocol Diltiazem HCl 120 mg 11/14/17 18:00 01/05/18 06:26 Cardizem Cd PO 120 mg BID ANIA Administration Emollient Ointment 1 applic 11/29/17 22:00 01/05/18 06:26 Eucerin Intensive Repair TOPICAL 1 applicatio 0600,2200 ANIA Administration Protocol Enoxaparin Sodium 40 mg 11/15/17 06:00 01/05/18 06:26 Lovenox SC 40 mg DAILY@0600 ANIA Administration Furosemide 20 mg 11/15/17 06:00 01/05/18 13:56 Lasix PO 20 mg BIDLX ANIA Administration Gabapentin 300 mg 12/25/17 22:00 01/04/18 20:41 Neurontin PO 300 mg HS ANIA Administration Glucagon 1 mg 11/14/17 17:21 IM .X1 PRN Hypoglycemia Heparin Sodium (Beef Lung) 500 unit 11/26/17 20:28 Heparin 500 Unit/5 Ml (100/Ml) IV UD PRN HEPARIN FLUSH Sodium Chloride 250 mls @ 15 mls/hr 11/26/17 20:28 01/04/18 06:14 IV 15 mls/hr .[id number] PRN Administration SALINE FLUSH Meropenem 500 mg/ Sodium 60 mls @ 100 mls/hr 11/29/17 22:00 01/05/18 14:06 Chloride IV 100 mls/hr Q8 ANIA Administration Insulin Human Lispro 0 unit 11/15/17 06:45 01/05/18 11:54 Humalog Kwikpen (Bkc) SQ 1 u TIDAC ANIA Administration Protocol Metoprolol Succinate 25 mg 11/15/17 06:00 01/05/18 06:27 Toprol Xl (Beta Vikki) PO 25 mg DAILY ANIA Administration Nutritional Formula 1 packet 11/27/17 08:00 01/05/18 07:57 Saul - [place] Flavor PO 1 packet BIDCM ANIA Administration Nystatin 1 applic 11/29/17 22:00 01/05/18 06:27 Mycostatin Powder TOPICAL 1 applicatio 0600,2200 ANIA Administration Pantoprazole Sodium 40 mg 11/15/17 06:00 01/05/18 06:27 Protonix PO 40 mg DAILY ANIA Administration Polysaccharide Iron Complex 150 mg 11/16/17 18:00 01/05/18 06:26 Ferrex 150 PO 150 mg BID ANIA Administration Sodium Chloride 10 - 20 ml 11/26/17 20:28 01/05/18 14:06 IV 20 ml UD PRN Administration PICC FLUSH Sodium Hypochlorite 1 applic 11/25/17 18:00 01/05/18 06:26 Dakins Solution 0.25% (1/2 Strength) TOPICAL Not Given BID [facility] Protocol Vital Signs Temp Pulse Resp BP Pulse Ox 97.8 F 69 17 110/61 95 01/04/18 16:00 01/05/18 06:27 01/04/18 16:00 01/05/18 06:27 01/04/18 16:00 Oxygen Flow Rate (L/min) 4 Oxygen Delivery Method Nasal Cannula Weight: 149.289 kg Body Mass Index (BMI) 66.4 Sodium 146 mmol/L (136-145) H 01/02/18 06:00 Potassium 4.0 mmol/L (3.5-5.1) 01/02/18 06:00 Chloride 110 mmol/L (98-107) H 01/02/18 06:00 Carbon Dioxide 30.0 mmol/L (21.0-32.0) 01/02/18 06:00 Anion Gap 6 (5-15) 01/02/18 06:00 BUN 40 mg/dL (7-18) H 01/02/18 06:00 Creatinine 0.83 mg/dL (0.55-1.02) 01/02/18 06:00 Est GFR (MDRD) Af Amer 93 mL/min (>60) 01/02/18 06:00 Est GFR (MDRD) Non-Af 77 mL/min (>60) 01/02/18 06:00 BUN/Creatinine Ratio 48.2 RATIO (10-20) H 01/02/18 06:00 Glucose 126 mg/dL (74-106) H 01/02/18 06:00 Random Vancomycin Cancelled 11/14/17 05:15 Assessment/Plan: 1) Pain APAP for mild pain, cyclobenzaprine for spasms, gabapentin at HS. Continue to monitor daily pain scores, prn medication use. 2) DM2 Insulin SS with meals. Avg BGT < 200 mg/dL. Continue to monitor BGT, s/s hyper/hypoglycemia. 3) Metabolic Alkalosis Acetazolamide 3x daily. Continue to monitor electrolytes. 4) CHF/AFib Diltiazem, metoprolol, furosemide. Continue to monitor BP/HR, renal function , electrolytes. 5) DVT PPx Enoxaparin daily. Continue to monitor s/s bleeding/clot. 6) Nutrition Fe, Saul. Continue to monitor clinically. 7) GI Pantoprazole daily. Continue to monitor s/s GI distress. 8) Derm Nystatin, emollient topically. Continue to monitor clinically. 9) ID Meropenem q8h for 6 weeks per documentation with no ordered stop date. Continue to monitor s/s infection. Psychotropic Medications: 10) Anxiety Alprazolam as needed. Continue to monitor s/s anxiety. Unnecessary Medications: None Bowel Regimen: 11) Bisacodyl daily. Continue to monitor for constipation/diarrhea. Date of Note:: 01/05/18 - Provider Comments Provider responsibility: Provider responsible to enter orders to implement recommendations <Jovani Branch Chi - Last Filed: 01/09/18 11:14> Progress Note - Pharmacy Subjective: [] Objective: Allergies latex Allergy (Verified 08/05/17 21:19) Rash levofloxacin [From Levaquin] Adverse Reaction (Verified 08/05/17 21:19) SPEEDS UP MY HEART AND SHUTS DOWN MY KIDNEYS mushrooms Allergy (Uncoded 08/05/17 21:19) Anaphylaxis STRAWBERRIES Allergy (Uncoded 08/05/17 21:19) Rash Current Medications Generic Name Dose Route Start Last Admin Trade Name Freq PRN Reason Stop Dose Admin Acetaminophen 1,000 mg 11/14/17 17:11 01/06/18 19:20 Tylenol PO 1,000 mg Q8H PRN Administration .MILD PAIN Acetazolamide 125 mg 11/14/17 22:00 01/09/18 06:17 Diamox PO 125 mg TID ANIA Administration Alprazolam 0.5 mg 12/25/17 21:43 01/03/18 21:12 Xanax PO 0.5 mg Q6H PRN PRN Administration ANXIETY Bisacodyl 10 mg 12/16/17 06:00 01/09/18 06:18 Dulcolax PO 10 mg DAILY ANIA Administration Cyclobenzaprine HCl 10 mg 01/04/18 21:34 01/08/18 22:45 Flexeril PO 10 mg TID PRN PRN Administration muscle spasms Dextrose 0 gm 11/14/17 17:21 D50w Syringe IV X1 PRN Hypoglycemia Protocol Diltiazem HCl 120 mg 11/14/17 18:00 01/09/18 06:18 Cardizem Cd PO 120 mg BID ANIA Administration Emollient Ointment 1 applic 11/29/17 22:00 01/09/18 06:24 Eucerin Intensive Repair TOPICAL 1 applicatio 0600,2200 ANIA Administration Protocol Enoxaparin Sodium 40 mg 11/15/17 06:00 01/09/18 06:18 Lovenox SC 40 mg DAILY@0600 ANIA Administration Furosemide 20 mg 11/15/17 06:00 01/09/18 06:17 Lasix PO 20 mg BIDLX ANIA Administration Gabapentin 300 mg 12/25/17 22:00 01/08/18 20:39 Neurontin PO 300 mg HS ANIA Administration Glucagon 1 mg 11/14/17 17:21 IM .X1 PRN Hypoglycemia Heparin Sodium (Beef Lung) 500 unit 11/26/17 20:28 Heparin 500 Unit/5 Ml (100/Ml) IV UD PRN HEPARIN FLUSH Sodium Chloride 250 mls @ 15 mls/hr 11/26/17 20:28 01/08/18 21:55 IV 15 mls/hr .[id number] PRN Administration SALINE FLUSH Meropenem 500 mg/ Sodium 60 mls @ 100 mls/hr 11/29/17 22:00 01/09/18 06:18 Chloride IV 100 mls/hr Q8 ANIA Administration Insulin Human Lispro 0 unit 11/15/17 06:45 01/09/18 08:19 Humalog Kwikpen (Bkc) SQ Not Given TIDAC [facility] Protocol Metoprolol Succinate 25 mg 11/15/17 06:00 01/09/18 06:17 Toprol Xl (Beta Vikki) PO 25 mg DAILY ANIA Administration Nutritional Formula 1 packet 11/27/17 08:00 01/09/18 08:19 Saul - [place] Flavor PO 1 packet BIDCM ANIA Administration Nystatin 1 applic 11/29/17 22:00 01/09/18 06:25 Mycostatin Powder TOPICAL 1 applicatio 0600,2200 ANIA Administration Pantoprazole Sodium 40 mg 11/15/17 06:00 01/09/18 06:18 Protonix PO 40 mg DAILY ANIA Administration Polysaccharide Iron Complex 150 mg 11/16/17 18:00 01/09/18 06:18 Ferrex 150 PO 150 mg BID ANIA Administration Sodium Chloride 10 - 20 ml 11/26/17 20:28 01/08/18 21:56 IV 20 ml UD PRN Administration PICC FLUSH Vital Signs Temp Pulse Resp BP Pulse Ox 97.4 F L 72 16 117/52 L 99 01/08/18 15:30 01/09/18 06:17 01/08/18 15:30 01/09/18 06:17 01/09/18 07:01 Oxygen Flow Rate (L/min) 4 Oxygen Delivery Method Nasal Cannula Weight: 149.856 kg Body Mass Index (BMI) 66.4 Sodium 146 mmol/L (136-145) H 01/02/18 06:00 Potassium 4.0 mmol/L (3.5-5.1) 01/02/18 06:00 Chloride 110 mmol/L (98-107) H 01/02/18 06:00 Carbon Dioxide 30.0 mmol/L (21.0-32.0) 01/02/18 06:00 Anion Gap 6 (5-15) 01/02/18 06:00 BUN 40 mg/dL (7-18) H 01/02/18 06:00 Creatinine 0.83 mg/dL (0.55-1.02) 01/02/18 06:00 Est GFR (MDRD) Af Amer 93 mL/min (>60) 01/02/18 06:00 Est GFR (MDRD) Non-Af 77 mL/min (>60) 01/02/18 06:00 BUN/Creatinine Ratio 48.2 RATIO (10-20) H 01/02/18 06:00 Glucose 126 mg/dL (74-106) H 01/02/18 06:00 Random Vancomycin Cancelled 11/14/17 05:15 Assessment/Plan: Psychotropic Medications: Unnecessary Medications: Bowel Regimen: - Provider Comments Provider responsibility: Provider responsible to enter orders to implement recommendations Provider Comments to Recommendations by Pharmacy: Agree
[2018-01-05 14:54] VITALS: PULSE 72; RESP 18; O2SAT 92
[2018-01-05 15:22] VITALS: BP 93/49; PULSE 72; RESP 20; TEMP 36.2; O2SAT 99
--- NOTE | 2018-01-05 15:48 | NURSING ---
wound photo: left medial thigh
[2018-01-05 17:06] LABS: Bedside Glucose 130 mg/dL (70-110)
[2018-01-05] MEDS: 0.9% NaCl IVPB Med Flush (250 mL) 15 ML IV (21:05)
[2018-01-05 21:06] LABS: Bedside Glucose 143 mg/dL (70-110)
[2018-01-05] MEDS: Gabapentin 300 MG Capsule PO (21:19)
[2018-01-06] MEDS: 0.9% NaCl PICC Flush IV ×3 (06:19→21:24)
[2018-01-06] MEDS: Bisacodyl 5 MG Tablet 10 MG PO (06:22)
[2018-01-06] MEDS: dilTIAZem CD 120 MG Capsule PO ×2 (06:23→17:34)
[2018-01-06] MEDS: AcetaZOLAMIDE 250 MG Tablet 125 MG PO ×3 (06:23→20:35)
[2018-01-06] MEDS: Furosemide 20 MG Tablet PO ×2 (06:23→13:15)
[2018-01-06] MEDS: Pantoprazole Sodium 40 MG Tablet PO (06:23)
[2018-01-06] MEDS: Enoxaparin 40 MG/0.4 ML Syringe SC (06:24)
[2018-01-06] MEDS: Nystatin Powder 15gm Bottle 1 APPLIC TOPICAL ×2 (06:24→20:52)
[2018-01-06] MEDS: Iron Polysaccharide Complex 150 MG CAPSULE PO ×2 (06:24→17:34)
[2018-01-06 06:25] VITALS: BP 113/65; PULSE 67
[2018-01-06] MEDS: Metoprolol(XL)Succ 25 MG Tablet PO (06:25)
[2018-01-06 06:55] LABS: Bedside Glucose 115 mg/dL (70-110)
[2018-01-06 10:00] VITALS: PULSE 72; RESP 18; O2SAT 91
[2018-01-06 11:30] VITALS: O2SAT 96
[2018-01-06 11:41] LABS: Bedside Glucose 170 mg/dL (70-110)
--- NOTE | 2018-01-06 11:45 | CPS ---
Patient reported using O2 via NC this AM.
[2018-01-06] MEDS: Insulin Lispro 100 UNIT/ML INSULN.PEN SQ ×2 (11:52→17:35)
[2018-01-06 15:27] VITALS: BP 111/65; PULSE 75; RESP 24; TEMP 36.2; O2SAT 100
--- NOTE | 2018-01-06 16:11 | CASEMGMT ---
Brief interview for mental status (BIMS) and resident mood interview (PHQ-9) completed on this day. BIMS score 15/15. PHQ-9 score 02/02
[2018-01-06 17:01] LABS: Bedside Glucose 195 mg/dL (70-110)
[2018-01-06] MEDS: Acetaminophen 500 MG Tablet 1000 MG PO (19:20)
[2018-01-06] MEDS: Gabapentin 300 MG Capsule PO (20:34)
[2018-01-06] MEDS: 0.9% NaCl IVPB Med Flush (250 mL) 15 ML IV (21:24)
[2018-01-06 21:36] LABS: Bedside Glucose 143 mg/dL (70-110)
[2018-01-07] MEDS: 0.9% NaCl PICC Flush IV ×2 (06:24→22:20)
[2018-01-07] MEDS: Nystatin Powder 15gm Bottle 1 APPLIC TOPICAL ×2 (06:28→22:29)
[2018-01-07] MEDS: Enoxaparin 40 MG/0.4 ML Syringe SC (06:29)
[2018-01-07] MEDS: Bisacodyl 5 MG Tablet 10 MG PO (06:29)
[2018-01-07] MEDS: dilTIAZem CD 120 MG Capsule PO ×2 (06:29→19:19)
[2018-01-07] MEDS: Furosemide 20 MG Tablet PO ×2 (06:29→14:08)
[2018-01-07] MEDS: Pantoprazole Sodium 40 MG Tablet PO (06:29)
[2018-01-07] MEDS: Iron Polysaccharide Complex 150 MG CAPSULE PO ×2 (06:29→19:20)
[2018-01-07] MEDS: AcetaZOLAMIDE 250 MG Tablet 125 MG PO ×3 (06:29→20:24)
[2018-01-07 06:30] VITALS: BP 100/56; PULSE 71
[2018-01-07] MEDS: Metoprolol(XL)Succ 25 MG Tablet PO (06:30)
[2018-01-07 07:01] LABS: Bedside Glucose 115 mg/dL (70-110)
[2018-01-07 08:40] VITALS: O2SAT 98
[2018-01-07 10:00] VITALS: PULSE 71; O2SAT 95
[2018-01-07 11:36] LABS: Bedside Glucose 168 mg/dL (70-110)
[2018-01-07] MEDS: Insulin Lispro 100 UNIT/ML INSULN.PEN SQ (12:23)
--- NOTE | 2018-01-07 13:44 | PN_ITS ---
Subjective: The patient was seen in her room in her wheelchair, her only acute complaint is that she has chronic muscle spasms in her neck that she takes cyclobenzaprine for at home. This was ordered for her by myself and has been helping with her muscle spasms. She has multiple organisms that grew in her wound culture and are sensitive to meropenem which Dr. Tran ordered IV antibiotics for a total of 6 weeks. She is tolerating the antibiotics well and denies any negative side effects to the antibiotics at this time. The patient otherwise denies any fever, chills, nausea, vomiting, shortness of breath, chest pain or pressure, palpitations, orthopnea, lower extremity edema, syncope or presyncopal episodes. Objective: Intake and Output for Last 24 Hours 01/05/18 01/06/18 01/07/18 23:59 23:59 23:59 Intake Total 850 / 850 1150 / 1150 480 / 480 Output Total 4950 / 4950 3650 / 3650 2400 / 2400 Balance -4100 / -4100 -2500 / -2500 -1920 / -1920 Vital Signs Height 5 ft Weight: 330 lb 6 oz Weight in Pounds 330.4 lbs Pulse Ox 98 Temperature 97.2 F Pulse Rate 71 Respiratory Rate 24 Blood Pressure 100/56 Blood Pressure Position Sitting - Physical Exam General: Alert, Oriented x3, Cooperative HEENT: Atraumatic, PERRLA, EOMI, Normocephalic Neck: Supple, No JVD Lungs: Clear to auscultation, Normal air movement Cardiovascular: Regular rate, No murmurs Abdomen: Bowel Sounds Present, Soft, Non Tender Extremities: No edema, Capillary Refill Less than 3 Seconds Skin: No rashes, No breakdown, Ulcer/ Wound - left upper thigh, wound vac in place Musculoskeletal: No Tenderness to Palpation of Joints or Extremities Neurological: Cranial nerves II-XII grossly intact, Neuro grossly intact Psych/Mental Status: Normal Affect, Appropriate, Alert and oriented to time, place, person, mood and affect Vital Signs Temp Pulse Resp BP Pulse Ox 97.2 F L 71 24 H 100/56 L 98 01/06/18 15:27 01/07/18 06:30 01/06/18 15:27 01/07/18 06:30 01/07/18 08:40 Oxygen Flow Rate (L/min) 4 Oxygen Delivery Method Nasal Cannula Weight: 330 lb 6 oz Body Mass Index (BMI) 66.4 Intake and Output for Last 24 Hours 01/05/18 01/06/18 01/07/18 23:59 23:59 23:59 Intake Total 850 / 850 1150 / 1150 480 / 480 Output Total 4950 / 4950 3650 / 3650 2400 / 2400 Balance -4100 / -4100 -2500 / -2500 -1920 / -1920 POC Glucose 01/07/18 01/07/18 01/06/18 11:18 06:43 21:23 POC Glucose 168 H 115 H 143 H 01/06/18 16:55 POC Glucose 195 H Medical Necessity - Tobacco Use Smoking Status: Former smoker Assessment/Plan All Active Problems Complicated open wound of left thigh (Acute) History of necrotizing fasciitis (Acute) Abscess of left thigh (Acute) CAP (community acquired pneumonia) (Acute) Lower GI bleed (Acute) Acute and chronic respiratory failure with hypoxia (Acute) Acute on chronic diastolic heart failure (Acute) Acute bronchitis with asthma with acute exacerbation (Acute) Shortness of breath (Acute) Acute on chronic diastolic heart failure (Acute) Acute bronchitis (Acute) Atrial fibrillation with RVR (Acute) Otitis externa (Acute) Metabolic alkalosis (Acute) Blood in stool (Acute) Abdominal pain (Resolved) 52 year old female with below past medical history hospitalized for sepsis secondary to left thigh sepsis, underwent debridement per Dr. Tran with wound vac placement, admitted to TCU for rehabilitation, strengthening, intravenous antibiotics, and wound care. * Debility - PT/OT. * Pain - Tylenol 1000MG Q8H PRN mild pain. * Bowel - Miralax 17GM daily. * DVT prophylaxis - Lovenox 40MG SC daily. * Hypertension - Metoprolol succinate 25MG daily, Diltiazem 120MG BID. * Edema - Lasix 20MG BID. * Iron deficiency anemia - Ferrex 150MG BID. * Multi organism wound infection - Meropenem 500MG IV Q8H total of [address] Tran. * Nutrition - Saul 1 packet BID. * Tinea corporis - Nystatin powder BID. * GERD - Pantoprazole 40MG daily. * Muscle spasms- flexeril 10 mg TID PRN Code Visit Inpatient E&M: 15227 [facility] Subs L1
[2018-01-07 15:26] LABS: Mucous, Urine 0 SEEN /hpf (<or=2+); Red Blood Cells-Urine 0 SEEN /hpf (0-5)
[2018-01-07 15:34] LABS: Color, Urine Yellow (Yellow); Glucose, Dipstick Normal (Normal); Ketone-Dipstick Negative (Negative); Leukocyte Esterase-Dipstick 25 /ul (Negative); Nitrite-Dipstick Negative (Negative); Occult Blood-Urine Negative /ul (Negative); Protein-Dipstick Negative (Negative); Urine Bilirubin Dipstick Negative (Negative); Urine Clarity Sl. Cloudy (Clear); Urine Urobilinogen Normal (Normal)
[2018-01-07 15:46] LABS: Bacteria 1+ /hpf (None Seen); Squamous Epithelial Cells - UA 0-5 SEEN /hpf (5-10); White Blood Cells 0-5 SEEN /hpf (0-5); Yeast-Urine RARE /hpf (None Seen)
[2018-01-07 15:55] VITALS: BP 99/51; PULSE 73; RESP 20; TEMP 36.2; O2SAT 99
[2018-01-07 17:06] LABS: Bedside Glucose 105 mg/dL (70-110)
[2018-01-07] MEDS: Gabapentin 300 MG Capsule PO (20:24)
[2018-01-07 21:26] LABS: Bedside Glucose 166 mg/dL (70-110)
[2018-01-08] MEDS: 0.9% NaCl PICC Flush IV ×4 (05:00→21:56)
[2018-01-08] MEDS: Enoxaparin 40 MG/0.4 ML Syringe SC (05:09)
[2018-01-08] MEDS: Nystatin Powder 15gm Bottle 1 APPLIC TOPICAL ×2 (05:11→20:41)
[2018-01-08 06:01] LABS: Prealbumin 18.3 mg/dL (20.0-40.0)
[2018-01-08] MEDS: Pantoprazole Sodium 40 MG Tablet PO (06:16)
[2018-01-08 06:17] VITALS: BP 101/57; PULSE 77
[2018-01-08] MEDS: Furosemide 20 MG Tablet PO ×2 (06:17→13:39)
[2018-01-08] MEDS: Metoprolol(XL)Succ 25 MG Tablet PO (06:17)
[2018-01-08] MEDS: AcetaZOLAMIDE 250 MG Tablet 125 MG PO ×3 (06:17→20:40)
[2018-01-08] MEDS: Bisacodyl 5 MG Tablet 10 MG PO (06:17)
[2018-01-08] MEDS: dilTIAZem CD 120 MG Capsule PO ×2 (06:18→17:12)
[2018-01-08] MEDS: Iron Polysaccharide Complex 150 MG CAPSULE PO ×2 (06:18→17:12)
--- NOTE | 2018-01-08 06:44 | NURSING ---
pt refused to have catheter taken out d/t having the dressing in the left inner thigh. Reassuring her that we could put a covering in between the left thigh to help with the fear of getting dressing wet. Pt tolerated the procedure well during this time. No c/o pain or discomfort at this time. Catheter and balloon intact 225 cc of urine removed out of catheter
[2018-01-08 07:06] LABS: Bedside Glucose 103 mg/dL (70-110)
[2018-01-08 07:33] VITALS: O2SAT 94
[2018-01-08 07:36] LABS: Hemoglobin A1c 4.8 % (4.2-6.3)
--- NOTE | 2018-01-08 10:27 | PCM.PN.SRG ---
Subjective: Postop #58 Patient had surgery on 11/11/17 where she underwent surgical preparation left medial thigh and crural area and inguinal area with incision and drainage and excisional debridement necrotizing diabetic abscess (160 cm2). VAC was applied initially. Operative cultures showed Enterococcus faecalis and Anaerobic cocci and Prevotella melaninogenica. She was treated with Vancomycin and Unasyn. She had another wound culture done on 11/26/17 which showed Acinetobacter baumannii, Pseudonomas aeroginosa, Citrobacter freundii, and Bacteroides fragilis. She was placed on Meropenem for 6 weeks. She will stop the antibiotics on 01/10/18. She also complains of some clouding in her urine in her randle bag. - Physical Exam General: Alert, Oriented x3 HEENT: PERRLA, EOMI Oral: Moist Mucosa Neck: Supple Abdomen: Soft, Non-Distended, Obese Extremities: No clubbing, No cyanosis, Edema - mild edema in lower extremities. Skin: Ulcer/ Wound - left medial thigh wound showing better granulation tissue. Smaller dimensions at 12 x 4 x 2 cm. No odor noted. No bleeding. No exudate. Neurological: Cranial nerves II-XII grossly intact Psych/Mental Status: Normal Affect, Appropriate Vital Signs Temp Pulse Resp BP Pulse Ox 97.1 F L 77 20 H 101/57 L 94 01/07/18 15:55 01/08/18 06:17 01/07/18 15:55 01/08/18 06:17 01/08/18 07:33 Oxygen Flow Rate (L/min) 2 Oxygen Delivery Method Room Air Weight: 330 lb 6 oz Body Mass Index (BMI) 66.4 Intake and Output for Last 24 Hours 01/06/18 01/07/18 01/08/18 23:59 23:59 23:59 Intake Total 1150 / 1150 960 / 960 240 / 240 Output Total 3650 / 3650 4000 / 4000 2550 / 2550 Balance -2500 / -2500 -3040 / -3040 -2310 / -2310 Laboratory Tests Past 24 Hrs 01/07/18 01/08/18 01/08/18 15:10 05:06 05:06 Hemoglobin A1c 4.8 Prealbumin 18.3 L Urine Color Yellow Urine Clarity Sl. Cloudy Urine pH 7.0 Ur Specific [place] 1.010 Urine Protein Negative Urine Glucose (UA) Normal Urine Ketones Negative Urine Occult Blood Negative Urine Nitrite Negative Urine Bilirubin Negative Urine Urobilinogen Normal Ur Leukocyte Esterase 25 H Urine RBC 0 SEEN Urine WBC 0-5 SEEN Ur Squamous Epith Cells 0-5 SEEN Urine Bacteria 1+ Urine Mucus 0 SEEN Urine Yeast RARE POC Glucose 01/08/18 01/07/18 01/07/18 06:41 21:10 16:53 POC Glucose 103 166 H 105 01/07/18 11:18 POC Glucose 168 H Medical Necessity - Tobacco Use Smoking Status: Former smoker Assessment/Plan All Active Problems Complicated open wound of left thigh (Acute) History of necrotizing fasciitis (Acute) Abscess of left thigh (Acute) CAP (community acquired pneumonia) (Acute) Lower GI bleed (Acute) Acute and chronic respiratory failure with hypoxia (Acute) Acute on chronic diastolic heart failure (Acute) Acute bronchitis with asthma with acute exacerbation (Acute) Shortness of breath (Acute) Acute on chronic diastolic heart failure (Acute) Acute bronchitis (Acute) Atrial fibrillation with RVR (Acute) Otitis externa (Acute) Metabolic alkalosis (Acute) Blood in stool (Acute) Abdominal pain (Resolved) 1. Open surgical diabetic wound left medial thigh and crural area and inguinal area. 2. Diabetes mellitus. 3. History of necrotizing infection. 4. s/p surgical preparation left medial thigh and crural area and inguinal area with incision and drainage and excisional debridement necrotizing diabetic abscess (160 cm2). 5. Stool contamination in diabetic wound, controlled. In preparation for going home, the VAC was changed to Aquacel Silver dressing changes daily. She is tolerating them. She is finishing up the Meropenem for the Acinetobacter baumannii, Pseudomonas aeroginosa, Citrobacter freundii, and Bacteroides fragilis. She will stop the antibiotics on 01/10/18. She can be discharged after that. Will have Home Health and family assist in the daily Silver dressing changes, Will followup at the Wound Center in 2-4 weeks. Discussed with the patient that if there is a plateau in the healing process, can proceed with delayed closure with skin grafting. She is aware of that possibility and wishes to proceed with wound care at this time. Will check another Prealbumin before discharge. Encourage nutritional supplementation with protein to help the healing process. Will also check a HgbA1c prior to discharge. Can followup with her PCP regarding her diabetes management. She was complaining of clouding in the urine in her randle catheter. Will check a U/A and culture. Can remove the randle prior to discharge. Instructed the patient on placing a plastic cup over her urethra to direct the urine into the toilet and not into the healing wound left medial thigh.
[2018-01-08 11:26] LABS: Bedside Glucose 154 mg/dL (70-110)
[2018-01-08] MEDS: Insulin Lispro 100 UNIT/ML INSULN.PEN SQ (11:53)
[2018-01-08 15:30] VITALS: BP 151/78; PULSE 83; RESP 16; TEMP 36.3; O2SAT 98
[2018-01-08 17:01] LABS: Bedside Glucose 116 mg/dL (70-110)
[2018-01-08] MEDS: Gabapentin 300 MG Capsule PO (20:39)
[2018-01-08 21:16] LABS: Bedside Glucose 151 mg/dL (70-110)
[2018-01-08] MEDS: 0.9% NaCl IVPB Med Flush (250 mL) 15 ML IV (21:55)
[2018-01-09 06:17] VITALS: BP 117/52; PULSE 72
[2018-01-09] MEDS: Metoprolol(XL)Succ 25 MG Tablet PO (06:17)
[2018-01-09] MEDS: AcetaZOLAMIDE 250 MG Tablet 125 MG PO ×3 (06:17→21:30)
[2018-01-09] MEDS: Furosemide 20 MG Tablet PO ×2 (06:17→13:39)
[2018-01-09] MEDS: Pantoprazole Sodium 40 MG Tablet PO (06:18)
[2018-01-09] MEDS: Enoxaparin 40 MG/0.4 ML Syringe SC (06:18)
[2018-01-09] MEDS: dilTIAZem CD 120 MG Capsule PO ×2 (06:18→17:16)
[2018-01-09] MEDS: Iron Polysaccharide Complex 150 MG CAPSULE PO ×2 (06:18→17:16)
[2018-01-09] MEDS: Bisacodyl 5 MG Tablet 10 MG PO (06:18)
[2018-01-09] MEDS: Nystatin Powder 15gm Bottle 1 APPLIC TOPICAL ×2 (06:25→21:30)
[2018-01-09 07:01] VITALS: O2SAT 99
[2018-01-09 07:10] LABS: Bedside Glucose 111 mg/dL (70-110)
--- NOTE | 2018-01-09 10:16 | NURSING ---
PT COMPLAINING OF PAIN AND SWELLING IN LEFT WRIST AND HAND. EDEMA X1 NON PITTING. PT STATED SHE HAS HAD GOUT BEFORE. REPORTED TO ZHENG FRYE
[2018-01-09 11:51] LABS: Bedside Glucose 178 mg/dL (70-110)
[2018-01-09] MEDS: Insulin Lispro 100 UNIT/ML INSULN.PEN SQ (12:16)
[2018-01-09] MEDS: MethylPREDNISolone DosePak 4 MG BOX PO ×3 (13:32→21:30)
[2018-01-09] MEDS: 0.9% NaCl PICC Flush IV ×2 (14:15→21:51)
[2018-01-09 16:00] VITALS: BP 116/72; PULSE 75; RESP 20; TEMP 36.1; O2SAT 96
[2018-01-09 17:05] LABS: Bedside Glucose 127 mg/dL (70-110)
[2018-01-09] MEDS: Gabapentin 300 MG Capsule PO (21:30)
[2018-01-09 21:56] LABS: Bedside Glucose 260 mg/dL (70-110)
[2018-01-10] MEDS: dilTIAZem CD 120 MG Capsule PO ×2 (06:07→17:34)
[2018-01-10] MEDS: Iron Polysaccharide Complex 150 MG CAPSULE PO ×2 (06:08→17:34)
[2018-01-10] MEDS: AcetaZOLAMIDE 250 MG Tablet 125 MG PO ×3 (06:08→20:18)
[2018-01-10] MEDS: Furosemide 20 MG Tablet PO ×2 (06:08→13:10)
[2018-01-10] MEDS: Bisacodyl 5 MG Tablet 10 MG PO (06:08)
[2018-01-10 06:09] VITALS: BP 112/65; PULSE 84
[2018-01-10] MEDS: Nystatin Powder 15gm Bottle 1 APPLIC TOPICAL ×2 (06:09→20:20)
[2018-01-10] MEDS: Enoxaparin 40 MG/0.4 ML Syringe SC (06:09)
[2018-01-10] MEDS: Metoprolol(XL)Succ 25 MG Tablet PO (06:09)
[2018-01-10] MEDS: Pantoprazole Sodium 40 MG Tablet PO (06:09)
[2018-01-10] MEDS: 0.9% NaCl PICC Flush IV (06:10)
[2018-01-10 07:01] LABS: Bedside Glucose 156 mg/dL (70-110)
[2018-01-10] MEDS: Insulin Lispro 100 UNIT/ML INSULN.PEN SQ ×3 (07:48→17:32)
[2018-01-10] MEDS: MethylPREDNISolone DosePak 4 MG BOX PO ×4 (07:49→20:17)
[2018-01-10 07:53] VITALS: O2SAT 95
[2018-01-10 11:16] LABS: Bedside Glucose 166 mg/dL (70-110)
[2018-01-10 15:42] VITALS: BP 121/55; PULSE 75; RESP 18; TEMP 36.3; O2SAT 94
[2018-01-10 17:01] LABS: Bedside Glucose 238 mg/dL (70-110)
[2018-01-10] MEDS: Gabapentin 300 MG Capsule PO (20:19)
[2018-01-10] MEDS: 0.9% NaCl IVPB Med Flush (250 mL) 15 ML IV (20:23)
[2018-01-10 20:30] VITALS: PULSE 65; RESP 18
[2018-01-10 21:26] LABS: Bedside Glucose 166 mg/dL (70-110)
[2018-01-11] MEDS: Enoxaparin 40 MG/0.4 ML Syringe SC (06:10)
[2018-01-11] MEDS: AcetaZOLAMIDE 250 MG Tablet 125 MG PO ×3 (06:11→20:58)
[2018-01-11] MEDS: Iron Polysaccharide Complex 150 MG CAPSULE PO ×2 (06:12→17:29)
[2018-01-11] MEDS: Pantoprazole Sodium 40 MG Tablet PO (06:18)
[2018-01-11] MEDS: dilTIAZem CD 120 MG Capsule PO ×2 (06:18→17:29)
[2018-01-11] MEDS: Furosemide 20 MG Tablet PO ×2 (06:18→13:37)
[2018-01-11 06:19] VITALS: BP 146/89; PULSE 89
[2018-01-11] MEDS: Metoprolol(XL)Succ 25 MG Tablet PO (06:19)
[2018-01-11] MEDS: Bisacodyl 5 MG Tablet 10 MG PO (06:19)
[2018-01-11] MEDS: Nystatin Powder 15gm Bottle 1 APPLIC TOPICAL ×2 (06:19→20:59)
[2018-01-11 06:30] VITALS: O2SAT 94
[2018-01-11 06:51] LABS: Bedside Glucose 140 mg/dL (70-110)
[2018-01-11] MEDS: MethylPREDNISolone DosePak 4 MG BOX PO ×4 (08:10→20:58)
[2018-01-11 11:31] LABS: Bedside Glucose 209 mg/dL (70-110)
[2018-01-11] MEDS: Insulin Lispro 100 UNIT/ML INSULN.PEN SQ ×2 (11:45→17:29)
[2018-01-11] MEDS: 0.9% NaCl IVPB Med Flush (250 mL) 15 ML IV (13:41)
[2018-01-11 15:39] VITALS: BP 127/69; PULSE 62; RESP 20; TEMP 36.1; O2SAT 96
[2018-01-11 16:55] LABS: Bedside Glucose 166 mg/dL (70-110)
[2018-01-11] MEDS: 0.9% NaCl PICC Flush IV (20:43)
[2018-01-11 20:46] LABS: Bedside Glucose 176 mg/dL (70-110)
[2018-01-11] MEDS: Gabapentin 300 MG Capsule PO (20:58)
[2018-01-11 21:08] VITALS: PULSE 68
[2018-01-12] MEDS: Furosemide 20 MG Tablet PO ×2 (05:08→14:35)
[2018-01-12] MEDS: dilTIAZem CD 120 MG Capsule PO ×2 (05:08→17:23)
[2018-01-12] MEDS: Bisacodyl 5 MG Tablet 10 MG PO (05:08)
[2018-01-12] MEDS: AcetaZOLAMIDE 250 MG Tablet 125 MG PO ×3 (05:08→21:53)
[2018-01-12] MEDS: Iron Polysaccharide Complex 150 MG CAPSULE PO ×2 (05:08→17:23)
[2018-01-12] MEDS: Pantoprazole Sodium 40 MG Tablet PO (05:08)
[2018-01-12 05:09] VITALS: BP 137/74; PULSE 60
[2018-01-12] MEDS: Nystatin Powder 15gm Bottle 1 APPLIC TOPICAL ×2 (05:09→21:52)
[2018-01-12] MEDS: Metoprolol(XL)Succ 25 MG Tablet PO (05:09)
[2018-01-12] MEDS: Enoxaparin 40 MG/0.4 ML Syringe SC (05:09)
[2018-01-12] MEDS: 0.9% NaCl PICC Flush IV (05:14)
[2018-01-12 05:42] LABS: Absolute Lymphocyte Count 0.99 X10^3/ul (0.83-4.51); Absolute Neutrophil Count 6.6 X10^3/uL (2.0-7.7); Basophil# 0.03 X10^3/uL; Basophil% 0.4 % (0-1); Eosinophil# 0.01 X10^3/uL; Eosinophils% 0.1 % (0-5); Hematocrit 31.3 % (37-47); Hemoglobin 9.5 g/dl (12.0-15.0); Lymphocyte # 0.99 X10^3/ul (4.0); Mean Corp Hgb Conc 30.4 g/gl (32-36); Mean Corpuscular Hgb 28.6 pg (27.0-32.0); Mean Corpuscular Volume 94.3 fL (81-99); Mean Platelet Vol. 9.2 fl (6.2-12.0); Monocyte# 0.49 X10^3/uL; Monocyte% 5.9 % (0-10); Neutrophil % 79.7 % (47-70); Platelet Count 228 K/mm3 (150-450); RBC Distribution Width CV 15.9 % (11.6-14.6); RBC Distribution Width SD 52.4 fl (35.1-43.9); Red Blood Count 3.32 M/mm3 (4.2-5.4); White Blood Count 8.3 K/mm3 (4.4-11.0)
[2018-01-12 06:04] LABS: POSITIVE COUNT NO; POSITIVE DIFFERENTIAL NO; POSITIVE MORPHOLOGY NO
[2018-01-12 06:08] LABS: Anion Gap 9 (5-15); BUN 56 mg/dL (7-18); BUN/Creat Ratio 54.9 RATIO (10-20); Calcium,Total 8.9 mg/dL (8.5-10.1); Chloride 105 mmol/L (98-107); Creatinine, Serum 1.02 mg/dL (0.55-1.02); EST Glomerular Filtration Rate 60 mL/min (>60); Est Glom Filt Rate - Afr Amer 73 mL/min (>60); Estimated Creatinine Clearance 46.34 ml/min; Glucose 140 mg/dL (74-106); Potassium 4.6 mmol/L (3.5-5.1); Sodium Level 144 mmol/L (136-145)
[2018-01-12 06:45] LABS: Bedside Glucose 130 mg/dL (70-110)
[2018-01-12 06:55] VITALS: O2SAT 99
[2018-01-12] MEDS: MethylPREDNISolone DosePak 4 MG BOX PO ×3 (08:14→21:52)
[2018-01-12 11:31] LABS: Bedside Glucose 197 mg/dL (70-110)
[2018-01-12] MEDS: Insulin Lispro 100 UNIT/ML INSULN.PEN SQ ×2 (11:33→17:25)
--- NOTE | 2018-01-12 12:03 | NURSING ---
NO to d/c PICC line per Dr. Branch d/t IVATB's being complete.
--- NOTE | 2018-01-12 13:53 | CASEMGMT ---
Social Work Spoke with resident in room. Resident requesting for discharge date to be set for 01/13/18, team agreeable to discharge date. Resident plans to discharge home with spouse. alf is recommending for resident to continue with services within the home due to daily dressing changes. Resident spouse is also teachable and able to assist with managing wound within the home. Resident is agreeable to home health services referral and requesting for home health services to be set up through [facility] ([facility]). Resident declining for this healthcare social worker to contact resident spouse in regards to discharge date/plan. Resident reporting to be able to notify spouse about discharge/discharge plan. Resident spouse to provide transportation home for resident at time of discharge. Resident reporting to have all other needed durable medical equipment already set up within the home. Support given. [facility] This healthcare social worker making referral for half-way. Masha to get back to this socia worker on whether or not they are able to accept resident. Order to be completed. Proposed discharge date: 01/13/18 PLAN: Discharge home with spouse and home health services. Marion GARCIA, TDP DISPLAYS ANALYST
--- NOTE | 2018-01-12 13:58 | CASEMGMT ---
Social Work Telephone call from [facility] M[facility] ROSENBERG. Masha reporting to be able to accept resident. Proposed discharge date: 01/13/18 PLAN: Discharge home with spouse and home health services. Marion GARCIA, GLASS BLOWING LATHE OPERATOR
[2018-01-12 15:24] VITALS: BP 109/54; PULSE 60; RESP 16; TEMP 36.6; O2SAT 96
[2018-01-12 16:51] LABS: Bedside Glucose 165 mg/dL (70-110)
--- NOTE | 2018-01-12 17:25 | NURSING ---
PICC line to [facility] discontinued per order. Catheter tip intact, removed at a length of 41 cm (insertion length) patient tolerated procedure well. Laying in bed in supine position, instructed to stay in position for 30 minutes. Patient understands. Occlusive dressing applied.
[2018-01-12 20:00] VITALS: PULSE 70; RESP 18; O2SAT 95
[2018-01-12 21:11] LABS: Bedside Glucose 213 mg/dL (70-110)
--- NOTE | 2018-01-12 21:38 | PCM.DC ---
You will use the following diet at home:: No restrictions, Regular Your food should be the consistency of: Regular Your liquids should be the consistency of: Regular/Thin Discharge Activity: Return to Normal Activity, May Shower, Use Walker Weight Bearing Status: Weight bearing as tolerated Call your doctor if you observe: Fever of 101 or Higher, Inability to urinate, Inability to have a bowel movement, Shortness of breath, Chest pain, Uncontrolled pain Allergies/Adverse Reactions: Allergies latex Allergy (Verified 08/05/17 21:19) Rash levofloxacin [From Levaquin] Adverse Reaction (Verified 08/05/17 21:19) SPEEDS UP MY HEART AND SHUTS DOWN MY KIDNEYS mushrooms Allergy (Uncoded 08/05/17 21:19) Anaphylaxis STRAWBERRIES Allergy (Uncoded 08/05/17 21:19) Rash Medications to take at Discharge Albuterol Sulfate [Ventolin Hfa] 2 puff INHALATION Q4H PRN PRN 01/08/17 Pantoprazole Sodium [Protonix] 40 mg PO DAILY 02/13/17 Metoprolol(XL)Succ [Toprol Xl (Beta Vikki)] 25 mg PO DAILY 03/06/17 Dicyclomine HCl [Bentyl] 20 mg PO Q6H PRN PRN 03/10/17 Multivitamin [Daily Multiple Vitamin] 1 each PO DAILY 08/05/17 AcetaAZOLAMIDE [Diamox] 250 mg PO TID #90 tab 10/21/17 Furosemide [Lasix] 20 mg PO BIDLX #60 tab 10/21/17 Menthol/Lanolin/Calamine/Znox [Calmoseptine Ointment] 1 applic TOPICAL TID tube 10/21/17 Nystatin Powder [Mycostatin Powder] 1 applic TOPICAL 0600,2200 #1 bottle 10/21/17 ALPRAZolam [Xanax] 0.5 mg PO Q6H PRN PRN #30 tab 01/12/18 AcetaAZOLAMIDE [Diamox] 125 mg PO TID tablet 01/12/18 Acetaminophen [Tylenol] 1,000 mg PO Q8H PRN tablet 01/12/18 Cyclobenzaprine [Flexeril] 10 mg PO TID PRN PRN #90 tab 01/12/18 Diltiazem CD [Cardizem CD] 120 mg PO BID capsule 01/12/18 Furosemide [Lasix] 20 mg PO BIDLX tablet 01/12/18 Gabapentin [Neurontin] 300 mg PO HS #30 cap 01/12/18 Iron Polysaccharide Complex [Ferrex 150] 150 mg PO BID #60 cap 01/12/18 Metoprolol(XL)Succ [Toprol Xl (Beta Vikki)] 25 mg PO DAILY tablet 01/12/18 Nutritional Supplement [Saul - ORANGE FLAVOR] 1 packet PO BIDCM packet 01/12/18 Nystatin Powder [Mycostatin Powder] 1 applic TOPICAL 0600,2200 bottle 01/12/18 Pantoprazole Sodium [Protonix] 40 mg PO DAILY tablet 01/12/18 The following prescriptions were given: ALPRAZolam [Xanax] 0.5 mg PO Q6H PRN PRN #30 tab PRN Reason: ANXIETY Cyclobenzaprine [Flexeril] 10 mg PO TID PRN PRN #90 tab PRN Reason: muscle spasms Gabapentin [Neurontin] 300 mg PO HS #30 cap Iron Polysaccharide Complex [Ferrex 150] 150 mg PO BID #60 cap Primary Care Physician: Merrick Mace MD [Primary Care Provider] - Please follow up with your Primary Care Physician in: 1 week. Test Results: Test results from this visit will be discussed in further detail at your follow-up appointment, if applicable. Proposed Discharge Date: 01/13/18
--- NOTE | 2018-01-12 21:40 | PCM.DC.SUM ---
Discharge Date and Diagnosis Date of Admission: 10/09/17 Date of Discharge: 01/13/18 - Secondary Discharge Diagnosis Chronic Problems acute on chronic blood loss anemia (Chronic) Morbid obesity (Chronic) Anemia (Chronic) GERD (gastroesophageal reflux disease) (Chronic) Irritable bowel syndrome (Chronic) Overactive bladder (Chronic) Wide-complex tachycardia (Chronic) Chronic diastolic CHF (congestive heart failure) (Chronic) Type 2 diabetes mellitus (Chronic) HgbA1c 06/2016 6.5%. 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) Lymphedema (Chronic) Venous insufficiency (chronic) (peripheral) (Chronic) Hospital Course and Treatment Imaging Results: Labs (Last 48 Hours) 01/11/18 01/11/18 01/11/18 06:30 11:11 16:46 WBC RBC Hgb Hct MCV MCH MCHC RDW RDW Differential Plt Count MPV Immature Gran % (Auto) Neut % (Auto) Lymph % (Auto) Mckenzie % (Auto) Eos % (Auto) Baso % (Auto) Absolute Neuts (auto) Absolute Lymphs (auto) Total Counted Sodium Potassium Chloride Carbon Dioxide Anion Gap BUN Creatinine Estim Creat Clear Calc Est GFR (MDRD) Af Amer Est GFR (MDRD) Non-Af BUN/Creatinine Ratio Glucose Calcium POC Glucose 140 H 209 H 166 H 01/11/18 01/12/18 01/12/18 20:42 05:18 05:18 WBC 8.3 RBC 3.32 L Hgb 9.5 L Hct 31.3 L MCV 94.3 MCH 28.6 MCHC 30.4 L RDW 15.9 H RDW Differential 52.4 H Plt Count 228 MPV 9.2 Immature Gran % (Auto) 1.900 H Neut % (Auto) 79.7 H Lymph % (Auto) 12.0 L Mckenzie % (Auto) 5.9 Eos % (Auto) 0.1 Baso % (Auto) 0.4 Absolute Neuts (auto) 6.6 Absolute Lymphs (auto) 0.99 Total Counted Not Reportable Sodium 144 Potassium 4.6 Chloride 105 Carbon Dioxide 30.0 Anion Gap 9 BUN 56 H Creatinine 1.02 Estim Creat Clear Calc 46.34 Est GFR (MDRD) Af Amer 73 Est GFR (MDRD) Non-Af 60 BUN/Creatinine Ratio 54.9 H Glucose 140 H Calcium 8.9 POC Glucose 176 H 01/12/18 01/12/18 01/12/18 06:32 11:16 16:40 WBC RBC Hgb Hct MCV MCH MCHC RDW RDW Differential Plt Count MPV Immature Gran % (Auto) Neut % (Auto) Lymph % (Auto) Mckenzie % (Auto) Eos % (Auto) Baso % (Auto) Absolute Neuts (auto) Absolute Lymphs (auto) Total Counted Sodium Potassium Chloride Carbon Dioxide Anion Gap BUN Creatinine Estim Creat Clear Calc Est GFR (MDRD) Af Amer Est GFR (MDRD) Non-Af BUN/Creatinine Ratio Glucose Calcium POC Glucose 130 H 197 H 165 H 01/12/18 21:06 WBC RBC Hgb Hct MCV MCH MCHC RDW RDW Differential Plt Count MPV Immature Gran % (Auto) Neut % (Auto) Lymph % (Auto) Mckenzie % (Auto) Eos % (Auto) Baso % (Auto) Absolute Neuts (auto) Absolute Lymphs (auto) Total Counted Sodium Potassium Chloride Carbon Dioxide Anion Gap BUN Creatinine Estim Creat Clear Calc Est GFR (MDRD) Af Amer Est GFR (MDRD) Non-Af BUN/Creatinine Ratio Glucose Calcium POC Glucose 213 H Consultations 11/14/17 Consult: Onc/Wound/carbonation tester Routine Comment: Comments:: lt inner thigh wound Operations: None Procedures: None Summary of Care Provided: The patient is a 52 year old Female with below past medical history hospitalized for sepsis secondary to left thigh abscess, underwent debridement per Dr. Tran with wound vac placement, admitted to TCU for rehabilitation, strengthening, wound care, IV antibiotics, prior to discharge home with spouse. Discharge home with spouse, and Home Health Services. Discharge Diet: No Restrictions Discharge Activity: Return to Normal Activity, May Shower, Use Walker Weight Bearing Status: Weight bearing as tolerated Call your doctor if you observe: Fever of 101 or Higher, Inability to urinate, Inability to have a bowel movement, Shortness of breath, Chest pain, Uncontrolled pain Home Medications: Medications to take at Discharge Albuterol Sulfate [Ventolin Hfa] 2 puff INHALATION Q4H PRN PRN 01/08/17 Pantoprazole Sodium [Protonix] 40 mg PO DAILY 02/13/17 Metoprolol(XL)Succ [Toprol Xl (Beta Vikki)] 25 mg PO DAILY 03/06/17 Dicyclomine HCl [Bentyl] 20 mg PO Q6H PRN PRN 03/10/17 Multivitamin [Daily Multiple Vitamin] 1 each PO DAILY 08/05/17 AcetaAZOLAMIDE [Diamox] 250 mg PO TID #90 tab 10/21/17 Furosemide [Lasix] 20 mg PO BIDLX #60 tab 10/21/17 Menthol/Lanolin/Calamine/Znox [Calmoseptine Ointment] 1 applic TOPICAL TID tube 10/21/17 Nystatin Powder [Mycostatin Powder] 1 applic TOPICAL 0600,2200 #1 bottle 10/21/17 ALPRAZolam [Xanax] 0.5 mg PO Q6H PRN PRN #30 tab 01/12/18 AcetaAZOLAMIDE [Diamox] 125 mg PO TID tablet 01/12/18 Acetaminophen [Tylenol] 1,000 mg PO Q8H PRN tablet 01/12/18 Cyclobenzaprine [Flexeril] 10 mg PO TID PRN PRN #90 tab 01/12/18 Diltiazem CD [Cardizem CD] 120 mg PO BID capsule 01/12/18 Furosemide [Lasix] 20 mg PO BIDLX tablet 01/12/18 Gabapentin [Neurontin] 300 mg PO HS #30 cap 01/12/18 Iron Polysaccharide Complex [Ferrex 150] 150 mg PO BID #60 cap 01/12/18 Metoprolol(XL)Succ [Toprol Xl (Beta Vikki)] 25 mg PO DAILY tablet 01/12/18 Nutritional Supplement [Saul - ORANGE FLAVOR] 1 packet PO BIDCM packet 01/12/18 Nystatin Powder [Mycostatin Powder] 1 applic TOPICAL 0600,2200 bottle 01/12/18 Pantoprazole Sodium [Protonix] 40 mg PO DAILY tablet 01/12/18 Following Prescrptions Were Given to Patient: ALPRAZolam [Xanax] 0.5 mg PO Q6H PRN PRN #30 tab PRN Reason: ANXIETY Cyclobenzaprine [Flexeril] 10 mg PO TID PRN PRN #90 tab PRN Reason: muscle spasms Gabapentin [Neurontin] 300 mg PO HS #30 cap Iron Polysaccharide Complex [Ferrex 150] 150 mg PO BID #60 cap Primary Care Physician: Merrick Mace MD [Primary Care Provider] - Please follow up with your Primary Care Physician in: 1 week. Disposition: Home with Home Health Minutes spent on discharge:: 35 Patient Condition:: Stable Medical Necessity - Tobacco Use Smoking Status: Former smoker Meaningful Use Info Meaningful Use Diagnoses (Choose all that apply): None applicable
--- NOTE | 2018-01-12 21:44 | PCM.PN.HH ---
Home Health Note - Plan Overview of reason of hospitalization: The patient is a 52 year old Female with below past medical history hospitalized for sepsis secondary to left thigh abscess, underwent debridement per Dr. Tran with wound vac placement, admitted to TCU for rehabilitation, strengthening, wound care, IV antibiotics, prior to discharge home with spouse. Discharge home with spouse, and Home Health Services. Problems: Complete List of Medical Problems Complicated open wound of left thigh (Acute) History of necrotizing fasciitis (Acute) Abscess of left thigh (Acute) acute on chronic blood loss anemia (Chronic) CAP (community acquired pneumonia) (Acute) Lower GI bleed (Acute) Acute and chronic respiratory failure with hypoxia (Acute) Acute on chronic diastolic heart failure (Acute) Acute bronchitis with asthma with acute exacerbation (Acute) Shortness of breath (Acute) Acute on chronic diastolic heart failure (Acute) Acute bronchitis (Acute) Atrial fibrillation with RVR (Acute) Otitis externa (Acute) Metabolic alkalosis (Acute) Blood in stool (Acute) Morbid obesity (Chronic) Anemia (Chronic) GERD (gastroesophageal reflux disease) (Chronic) Irritable bowel syndrome (Chronic) Overactive bladder (Chronic) Wide-complex tachycardia (Chronic) Chronic diastolic CHF (congestive heart failure) (Chronic) Type 2 diabetes mellitus (Chronic) 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
[2018-01-12] MEDS: Gabapentin 300 MG Capsule PO (21:53)
[2018-01-13] MEDS: AcetaZOLAMIDE 250 MG Tablet 125 MG PO ×2 (05:54→13:38)
[2018-01-13] MEDS: dilTIAZem CD 120 MG Capsule PO (05:55)
[2018-01-13] MEDS: Bisacodyl 5 MG Tablet 10 MG PO (05:56)
[2018-01-13] MEDS: Iron Polysaccharide Complex 150 MG CAPSULE PO (05:57)
[2018-01-13] MEDS: Furosemide 20 MG Tablet PO ×2 (05:57→13:38)
[2018-01-13 05:58] VITALS: PULSE 62
[2018-01-13] MEDS: Pantoprazole Sodium 40 MG Tablet PO (05:58)
[2018-01-13] MEDS: Metoprolol(XL)Succ 25 MG Tablet PO (05:58)
[2018-01-13] MEDS: Enoxaparin 40 MG/0.4 ML Syringe SC (05:58)
[2018-01-13] MEDS: Nystatin Powder 15gm Bottle 1 APPLIC TOPICAL (05:58)
[2018-01-13 06:51] LABS: Bedside Glucose 125 mg/dL (70-110)
[2018-01-13 07:21] VITALS: O2SAT 98
[2018-01-13] MEDS: MethylPREDNISolone DosePak 4 MG BOX PO (07:36)
[2018-01-13 11:36] LABS: Bedside Glucose 157 mg/dL (70-110)
[2018-01-13] MEDS: Insulin Lispro 100 UNIT/ML INSULN.PEN SQ (11:38)
[2018-01-13 13:51] VITALS: PULSE 61; RESP 18; O2SAT 98
--- NOTE | 2018-01-13 15:54 | NURSING ---
Education provided to patient and regarding dressing change, home health nurse present. Patient and receptive to instructions. Patient sent home with remainder of wound supplies from room. Patient would like to make appointment with Dr. Mace, home health nurse left message with wound clinic to call and schedule appointment with patient.
[2018-01-13 15:59] VITALS: BP 133/76; PULSE 68; RESP 20; TEMP 36.4; O2SAT 95
--- NOTE | 2018-01-14 09:01 | MDS.RN ---
Information for the mds was obtained from review of the clinical record, interview of resident, staff, and direct observation of resident's care.
== END 2018-01-13 15:50 | disposition home health service (06) | DRG 949 ==
PROVIDERS: Nurse Practitioner Family; Surgery; Admitting Provider Family Medicine Geriatric Medicine; Family Provider Family Medicine; PCP Family Medicine; Visit Provider Family Medicine Geriatric Medicine
DX: Z48.817 Encounter for surgical aftercare following surgery on the skin and subcutaneous tissue (principal); I50.33 Acute on chronic diastolic (congestive) heart failure; L02.416 Cutaneous abscess of left lower limb; D62 Acute posthemorrhagic anemia; E66.2 Morbid (severe) obesity with alveolar hypoventilation; Z68.44 Body mass index [BMI] 60.0-69.9, adult; K21.9 Gastro-esophageal reflux disease without esophagitis; I11.0 Hypertensive heart disease with heart failure; D50.0 Iron deficiency anemia secondary to blood loss (chronic); E11.51 Type 2 diabetes mellitus with diabetic peripheral angiopathy without gangrene; Z87.891 Personal history of nicotine dependence; K58.9 Irritable bowel syndrome, unspecified; E78.5 Hyperlipidemia, unspecified; G47.33 Obstructive sleep apnea (adult) (pediatric); B35.1 Tinea unguium; E11.42 Type 2 diabetes mellitus with diabetic polyneuropathy; Z71.3 Dietary counseling and surveillance; M79.674 Pain in right toe(s); M79.675 Pain in left toe(s); N32.81 Overactive bladder; I48.91 Unspecified atrial fibrillation; B35.4 Tinea corporis
CPT/HCPCS: 36415; 36569; 80048; 81001; 82962; 83036; 84134; 85025; 85027; 87070; 87075; 87076; 87077; 87086; 87088; 87184; 87186; 87205; 97110; 97116; 97162; 97166; 97530; 97535; 97802; J2185; J7040; J7050; A4216; J0295

== ENCOUNTER 2018-02-16 10:15 | Outpatient (RCR) | payer MEDICARE, SELFPAY ==
[2018-02-16 10:31] VITALS: BP 133/78; PULSE 98; RESP 16; TEMP 36.6; BMI 68.3
--- NOTE | 2018-02-16 21:44 | PN.PCM_ITS ---
Type of Wound Date of Service: 02/16/18 Chief Complaint: Nonhealing diabetic ulcer left medial thigh. History of Wound: Surgery 11/11/17 - Surgical preparation left medial thigh and crural area and inguinal area with incision and drainage and excisional debridement necrotizing diabetic abscess (160 cm2). Wound care - Silver. Operative culture - Enterococcus faecalis, Anaerobic cocci, and Prevotella melaninogenica. She was treated with Vancomycin and Unasyn. Another wound culture on 11/26/17 showed Acinetobacter baumannii, Pseudomonas aeroginosa, Citrobacter freundii, and Bacteroides fragilis. She was treated with Meropenem and has completed the treatment. Encourage nutritional supplementation with protein to help the healing process. Her HgbA1c in January was 4.8. Today she denies any fever. Her appetite is good. Progress of Wound: Improved. - Physical Exam Vital Signs Temp Pulse Resp BP 97.8 F 98 16 133/78 H 02/16/18 10:31 02/16/18 10:31 02/16/18 10:31 02/16/18 10:31 Wound Measurements and Assessment WC - Nurse 1 - General Ulcer Measurement Start: 02/16/18 10:29 Freq: Status: Active Protocol: Activity Type Activity Date Activity User E-Sign Co-Sign Detail Recorded Client Recorded Date Recorded By Document 02/16/18 10:31 [facility] [id number] 02/16/18 10:48 [facility] 02/16/18 10:31 Wound Center Nurse 1 [Ulcer Assessment] #2- LT MEDIAL THIGH -Combined with other wound No -Current Size (cm) - Length 2.3 -Current Size (cm) - Width 13 -Current Size (cm) - Depth 0.9 -Total Square Cm 29.9 -Date of Last Picture (Recall this 02/16/18 field) -Photo Taken Yes -Epithelialization None Present -Tunneling No -Undermining/Tunneling No -Circular Undermining No -Exudate Amt Medium (34-66%) -Exudate Type Serosanguineous -Wound Margin Distinct, Outline Attached -Granulation Amt Medium (34-66%) -Granulation Quality Red -Slough/Fibrin Yes -Necrosis Amt Medium (34-66%) -Necrotic Tissue Type Eschar -Texture (Chani-wound Skin Appearance) Scarring -Moisture (Chani-wound Skin Appearance Dry/Scaly ) -Color (Chani-wound Skin Appearance) Assessed -Temperature (Chani-wound Skin No Abnormality Appearance) (Pt Warm) -Tenderness on Palpation (Chani-wound No Skin Appearance) -Ulcer Cleansing Rinsed/ Irrigated with Saline -Foul Odor after Cleansing No -Anesthetic Used 4% Lidocaine Solution SPENCER - Nurse 2 - General Ulcer CM Notes Start: 02/16/18 10:29 Freq: Status: Active Protocol: Activity Type Activity Date Activity User E-Sign Co-Sign Detail Recorded Client Recorded Date Recorded By Document 02/16/18 11:03 [id number] 02/16/18 11:04 02/16/18 11:03 Wound Center Nurse 2 [Procedure/Treatment] -Time 11:03 -Correct Patient Yes -Correct Side, Site, Position Yes -Correct Procedure Yes -Procedure Performed Yes -Type of Procedure Debridement -Clinical Debridement Subcutaneous -Post Debridement Size (cm) - Length 2.3 -Post Debridement Size (cm) - Width 1.4 -Post Debridement Size (cm) - Depth 0.9 -Total Square Cm 3.22 -Wound/Ulcer Outcome Not Healed -Ulcer Cleansing Rinsed/ Irrigated with Saline -Foul Odor after Cleansing No -Bioengineered Tissue No -Bleeding Controlled with Pressure -Treatment Response Procedure Tolerated Well [See Physician Procedure note for Specifics] Pain Scale: 0-10 Numeric [Pain] -Is Patient Pain Free? Yes Debridement Note Post-Debridement Measurements/Treatment SPENCER - Nurse 2 - General Ulcer CM Notes Start: 02/16/18 10:29 Freq: Status: Active Protocol: Activity Type Activity Date Activity User E-Sign Co-Sign Detail Recorded Client Recorded Date Recorded By Document 02/16/18 11:03 [id number] 02/16/18 11:04 02/16/18 11:03 Wound Center Nurse 2 #2- LT MEDIAL THIGH -Time 11:03 -Correct Patient Yes -Correct Side, Site, Position Yes -Correct Procedure Yes -Procedure Performed Yes -Type of Procedure Debridement -Clinical Debridement Subcutaneous -Post Debridement Size (cm) - Length 2.3 -Post Debridement Size (cm) - Width 1.4 -Post Debridement Size (cm) - Depth 0.9 -Total Square Cm 3.22 -Wound/Ulcer Outcome Not Healed -Ulcer Cleansing Rinsed/ Irrigated with Saline -Foul Odor after Cleansing No -Bioengineered Tissue No -Bleeding Controlled with Pressure -Treatment Response Procedure Tolerated Well Pain Scale: 0-10 Numeric Is Patient Pain Free? Yes Wound debrided: #2 Left medial thigh. Laterality: Left Wound Grade/Stage: 2. Type of Debridement: Excisional debridement Anesthesia Used: 4% Lidocaine Solution Depth: Down to and including healthy tissue, in the subcutaneous layer Percentage of wound debrided: 100 Instrument Used: 5mm curette Tissue Removed: subcutaneous tissue. Severity: Fat Layer Exposed Amount of bleeding with debridement: Mild Bleeding Controlled with: Pressure Patient tolerated procedure well Assessment/Plan Assessment: 1. Nonhealing diabetic ulcer left medial thigh. 2. Diabetes mellitus. Plan: Continue Silver dressing changes daily. Encourage nutritional supplementation with protein to help the healing process. Discussed with the patient about wound closure with skin grafting. She will think about it and let me know. If she wants to proceed with skin grafting, will obtain a wound culture preop. Her latest HgbA1c was 4.8 in January. For elective surgeries such as skin grafting, the HgbA1c needs to be less than 8. Followup 4 weeks.
== END 2018-03-08 23:59 ==
LOC: WC 10:15
PROVIDERS: Family Provider Family Medicine; PCP Family Medicine; Visit Provider Surgery
DX: E11.622 Type 2 diabetes mellitus with other skin ulcer (principal); L97.122 Non-pressure chronic ulcer of left thigh with fat layer exposed
CPT/HCPCS: 11042; 11045; 99213; G0463

== ENCOUNTER 2018-03-23 09:01 | Outpatient (RCR) | payer MEDICARE, SELFPAY ==
[2018-03-09 01:36] VITALS: BP 133/78; PULSE 98; RESP 16; TEMP 36.6
[2018-03-23 09:31] VITALS: BP 161/78; PULSE 102; RESP 18; TEMP 36.3
--- NOTE | 2018-03-23 12:45 | PCM.WC.PN ---
(1) Ulcer of left thigh Status: Chronic Current Visit: Yes Code(s): L97.129 - Non-pressure chronic ulcer of left thigh with unspecified severity (2) Yeast dermatitis Status: Acute Current Visit: Yes Code(s): B37.2 - Candidiasis of skin and nail (3) Morbid obesity Status: Chronic Current Visit: Yes Code(s): E66.01 - Morbid (severe) obesity due to excess calories (4) Lymphedema Status: Chronic Current Visit: Yes Code(s): I89.0 - Lymphedema, not elsewhere classified (5) Type 2 diabetes mellitus Status: Chronic Current Visit: Yes Qualifiers: Code(s): E11.9 - Type 2 diabetes mellitus without complications Comment: HgbA1c 06/2016 6.5%. Type of Wound Date of Service: 03/23/18 Chief Complaint: Nonhealing diabetic ulcer left medial thigh. History of Wound: Surgery 11/11/17- Surgical preparation left medial thigh and crural area and inguinal area with incision and drainage and excisional debridement necrotizing diabetic abscess (160 cm2). Wound care- Silver. Operative culture- Enterococcus faecalis, Anaerobic cocci, and Provotella melaninogenica. She as treated with Vancomycin and Unasyn. Another wound culture on 11/26/17 showed Acinetobater baumannii, Pseudomonas aeroginosa, Citrobacter freundii, and Bacteroides fragilis. She was treated with Meropenem and has completed the treatment. Encourage nutritional supplementation with protein to help the healing process. Her HgbA1c in January was 4.8. Today she denies any fever. Her appetite is good. Progress of Wound: Improved. - Physical Exam Vital Signs Temp Pulse Resp BP 97.4 F L 102 H 18 161/78 H 03/23/18 09:31 03/23/18 09:31 03/23/18 09:31 03/23/18 09:31 General: Alert, Oriented x3 HEENT: Atraumatic Extremities: Diminished Peripheral Pulses, Edema Skin: Ulcer/ Wound - Left medial thigh ulcer which is decreasing in size, Rash Present - Fungal rash over lower abdomen and groin in skin creases. Very erythematous and obvious itchy. She also has scratch thompson on arms, legs and abdomen from bedbugs that are visibly present on her person and clothing. Wound Measurements and Assessment WC - Nurse 1 - General Ulcer Measurement Start: 03/23/18 09:31 Freq: Status: Active Protocol: Activity Type Activity Date Activity User E-Sign Co-Sign Detail Recorded Client Recorded Date Recorded By Document 03/23/18 09:31 [facility] [id number] 03/23/18 09:33 [facility] 03/23/18 09:31 Wound Center Nurse 1 [Ulcer Assessment] #2- LT MEDIAL THIGH -Combined with other wound No -Current Size (cm) - Length 1.7 -Current Size (cm) - Width 5.7 -Current Size (cm) - Depth 0.3 -Total Square Cm 9.69 -Photo Taken No -Epithelialization Small 1-33% -Tunneling No -Undermining/Tunneling No -Circular Undermining No -Exudate Amt Small (1-33%) -Exudate Type Serosanguineous -Wound Margin Distinct, Outline Attached -Granulation Amt Large (67-100%) -Granulation Quality Red -Slough/Fibrin Yes -Necrosis Amt Small (1-33%) -Necrotic Tissue Type Adherent Slough -Texture (Chani-wound Skin Appearance) Excoriation Scarring -Moisture (Chani-wound Skin Appearance Maceration ) Dry/Scaly -Color (Chani-wound Skin Appearance) Erythema Palor -Temperature (Chani-wound Skin No Abnormality Appearance) (Pt Warm) -Tenderness on Palpation (Chani-wound No Skin Appearance) -Ulcer Cleansing Rinsed/ Irrigated with Saline -Foul Odor after Cleansing No -Anesthetic Used 4% Lidocaine Solution WC - Nurse 2 - General Ulcer CM Notes Start: 03/23/18 09:31 Freq: Status: Active Protocol: Activity Type Activity Date Activity User E-Sign Co-Sign Detail Recorded Client Recorded Date Recorded By Document 03/23/18 09:48 [id number] 03/23/18 09:48 03/23/18 09:48 Wound Center Nurse 2 [Procedure/Treatment] -Time 09:48 -Correct Patient Yes -Correct Side, Site, Position Yes -Correct Procedure Yes -Procedure Performed Yes -Type of Procedure Debridement -Clinical Debridement Subcutaneous -Post Debridement Size (cm) - Length 1.8 -Post Debridement Size (cm) - Width 5.8 -Post Debridement Size (cm) - Depth 0.3 -Total Square Cm 10.44 -Wound/Ulcer Outcome Not Healed -Ulcer Cleansing Rinsed/ Irrigated with Saline -Foul Odor after Cleansing No -Bioengineered Tissue No -Bleeding Controlled with Pressure -Treatment Response Procedure Tolerated Well [See Physician Procedure note for Specifics] Pain Scale: 0-10 Numeric [Pain] -Is Patient Pain Free? Yes Musculoskeletal: No Tenderness to Palpation of Joints or Extremities Neurological: Neuro grossly intact Psych/Mental Status: Normal Affect, Appropriate Debridement Note Post-Debridement Measurements/Treatment WC - Nurse 2 - General Ulcer CM Notes Start: 03/23/18 09:31 Freq: Status: Active Protocol: Activity Type Activity Date Activity User E-Sign Co-Sign Detail Recorded Client Recorded Date Recorded By Document 03/23/18 09:48 [id number] 03/23/18 09:48 SARKIS 03/23/18 09:48 Wound Center Nurse 2 #2- LT MEDIAL THIGH -Time 09:48 -Correct Patient Yes -Correct Side, Site, Position Yes -Correct Procedure Yes -Procedure Performed Yes -Type of Procedure Debridement -Clinical Debridement Subcutaneous -Post Debridement Size (cm) - Length 1.8 -Post Debridement Size (cm) - Width 5.8 -Post Debridement Size (cm) - Depth 0.3 -Total Square Cm 10.44 -Wound/Ulcer Outcome Not Healed -Ulcer Cleansing Rinsed/ Irrigated with Saline -Foul Odor after Cleansing No -Bioengineered Tissue No -Bleeding Controlled with Pressure -Treatment Response Procedure Tolerated Well Pain Scale: 0-10 Numeric Is Patient Pain Free? Yes Wound debrided: Left upper medial thigh Laterality: Left Type of Debridement: Excisional debridement Anesthesia Used: 4% Lidocaine Solution Depth: Down to and including healthy tissue, in the subcutaneous layer Percentage of wound debrided: 100 Instrument Used: 7mm curette Tissue Removed: Subcutaneous tissue and slough Severity: Fat Layer Exposed Amount of bleeding with debridement: Mild Bleeding Controlled with: Pressure Patient tolerated procedure well Assessment/Plan Active Problems Ulcer of left thigh (Chronic) Yeast dermatitis (Acute) Morbid obesity (Chronic) Type 2 diabetes mellitus (Chronic) HgbA1c 06/2016 6.5%. Lymphedema (Chronic) Venous insufficiency (chronic) (peripheral) (Chronic) Assessment: 1. Nonhealing diabetic ulcer left medial thigh. 2. Diabetes mellitus. 3. Yeast Dematitis. Plan: Continue silver dressing changes daily. For her fungal rash over lower abdomen and groin skin folds have prescribed Nystatin powder twice daily. Instructed patient and family member to clean area well daily and to dry well. Also encouraged to place a clean, dry towel between skin folds after powder is applied. Encourage nutritional supplementation with protein to help with the healing process. Dr. Tran discussed with the patient about wound closure with skin grafting at her last visit. She will think about it and let him know. If she wants to proceed with skin grafting, will obtain wound culture preop. Her latest HgA1c was 4.8 in January. For elective surgery such as skin grafting, the HgA1c needs to be less than 8. Follow-up in 2 weeks. Code Visit [id number]: [id number] Jess subq tissue 20 sq cm/<
--- NOTE | 2018-03-24 09:09 | PN.PCM_ITS ---
(1) Ulcer of left thigh Status: Chronic Current Visit: Yes Code(s): L97.129 - Non-pressure chronic ulcer of left thigh with unspecified severity (2) Yeast dermatitis Status: Acute Current Visit: Yes Code(s): B37.2 - Candidiasis of skin and nail (3) Morbid obesity Status: Chronic Current Visit: Yes Code(s): E66.01 - Morbid (severe) obesity due to excess calories (4) Lymphedema Status: Chronic Current Visit: Yes Code(s): I89.0 - Lymphedema, not elsewhere classified (5) Type 2 diabetes mellitus Status: Chronic Current Visit: Yes Qualifiers: Code(s): E11.9 - Type 2 diabetes mellitus without complications Comment: HgbA1c 06/2016 6.5%. Type of Wound Date of Service: 03/23/18 Chief Complaint: Nonhealing diabetic ulcer left medial thigh. History of Wound: Surgery 11/11/17- Surgical preparation left medial thigh and crural area and inguinal area with incision and drainage and excisional debridement necrotizing diabetic abscess (160 cm2). Wound care- Silver. Operative culture- Enterococcus faecalis, Anaerobic cocci, and Provotella melaninogenica. She as treated with Vancomycin and Unasyn. Another wound culture on 11/26/17 showed Acinetobater baumannii, Pseudomonas aeroginosa, Citr obacter freundii, and Bacteroides fragilis. She was treated with Meropenem and has completed the treatment. Encourage nutritional supplementation with protein to help the healing process. Her HgbA1c in January was 4.8. Today she denies any fever. Her appetite is good. Progress of Wound: Improved. - Physical Exam Vital Signs Temp Pulse Resp BP 97.4 F L 102 H 18 161/78 H 03/23/18 09:31 03/23/18 09:31 03/23/18 09:31 03/23/18 09:31 General: Alert, Oriented x3 HEENT: Atraumatic Extremities: Diminished Peripheral Pulses, Edema Skin: Ulcer/ Wound - Left medial thigh ulcer which is decreasing in size, Rash Present - Fungal rash over lower abdomen and groin in skin creases. Very erythematous and obvious itchy. She also has scratch thompson on arms, legs and abdomen from bedbugs that are visibly present on her person and clothing. Wound Measurements and Assessment WC - Nurse 1 - General Ulcer Measurement Start: 03/23/18 09:31 Freq: Status: Active Protocol: Activity Type Activity Date Activity User E-Sign Co-Sign Detail Recorded Client Recorded Date Recorded By Document 03/23/18 09:31 [facility] [id number] 03/23/18 09:33 [facility] 03/23/18 09:31 Wound Center Nurse 1 [Ulcer Assessment] #2- LT MEDIAL THIGH -Combined with other wound No -Current Size (cm) - Length 1.7 -Current Size (cm) - Width 5.7 -Current Size (cm) - Depth 0.3 -Total Square Cm 9.69 -Photo Taken No -Epithelialization Small 1-33% -Tunneling No -Undermining/Tunneling No -Circular Undermining No -Exudate Amt Small (1-33%) -Exudate Type Serosanguineous -Wound Margin Distinct, Outline Attached -Granulation Amt Large (67-100%) -Granulation Quality Red -Slough/Fibrin Yes -Necrosis Amt Small (1-33%) -Necrotic Tissue Type Adherent Slough -Texture (Chani-wound Skin Appearance) Excoriation Scarring -Moisture (Chani-wound Skin Appearance Maceration ) Dry/Scaly -Color (Chani-wound Skin Appearance) Erythema Palor -Temperature (Chani-wound Skin No Abnormality Appearance) (Pt Warm) -Tenderness on Palpation (Chani-wound No Skin Appearance) -Ulcer Cleansing Rinsed/ Irrigated with Saline -Foul Odor after Cleansing No -Anesthetic Used 4% Lidocaine Solution WC - Nurse 2 - General Ulcer CM Notes Start: 03/23/18 09:31 Freq: Status: Active Protocol: Activity Type Activity Date Activity User E-Sign Co-Sign Detail Recorded Client Recorded Date Recorded By Document 03/23/18 09:48 [id number] 03/23/18 09:48 03/23/18 09:48 Wound Center Nurse 2 [Procedure/Treatment] -Time 09:48 -Correct Patient Yes -Correct Side, Site, Position Yes -Correct Procedure Yes -Procedure Performed Yes -Type of Procedure Debridement -Clinical Debridement Subcutaneous -Post Debridement Size (cm) - Length 1.8 -Post Debridement Size (cm) - Width 5.8 -Post Debridement Size (cm) - Depth 0.3 -Total Square Cm 10.44 -Wound/Ulcer Outcome Not Healed -Ulcer Cleansing Rinsed/ Irrigated with Saline -Foul Odor after Cleansing No -Bioengineered Tissue No -Bleeding Controlled with Pressure -Treatment Response Procedure Tolerated Well [See Physician Procedure note for Specifics] Pain Scale: 0-10 Numeric [Pain] -Is Patient Pain Free? Yes Musculoskeletal: No Tenderness to Palpation of Joints or Extremities Neurological: Neuro grossly intact Psych/Mental Status: Normal Affect, Appropriate Debridement Note Post-Debridement Measurements/Treatment WC - Nurse 2 - General Ulcer CM Notes Start: 03/23/18 09:31 Freq: Status: Active Protocol: Activity Type Activity Date Activity User E-Sign Co-Sign Detail Recorded Client Recorded Date Recorded By Document 03/23/18 09:48 [id number] 03/23/18 09:48 SARKIS 03/23/18 09:48 Wound Center Nurse 2 #2- LT MEDIAL THIGH -Time 09:48 -Correct Patient Yes -Correct Side, Site, Position Yes -Correct Procedure Yes -Procedure Performed Yes -Type of Procedure Debridement -Clinical Debridement Subcutaneous -Post Debridement Size (cm) - Length 1.8 -Post Debridement Size (cm) - Width 5.8 -Post Debridement Size (cm) - Depth 0.3 -Total Square Cm 10.44 -Wound/Ulcer Outcome Not Healed -Ulcer Cleansing Rinsed/ Irrigated with Saline -Foul Odor after Cleansing No -Bioengineered Tissue No -Bleeding Controlled with Pressure -Treatment Response Procedure Tolerated Well Pain Scale: 0-10 Numeric Is Patient Pain Free? Yes Wound debrided: Left upper medial thigh Laterality: Left Type of Debridement: Excisional debridement Anesthesia Used: 4% Lidocaine Solution Depth: Down to and including healthy tissue, in the subcutaneous layer Percentage of wound debrided: 100 Instrument Used: 7mm curette Tissue Removed: Subcutaneous tissue and slough Severity: Fat Layer Exposed Amount of bleeding with debridement: Mild Bleeding Controlled with: Pressure Patient tolerated procedure well Assessment/Plan Active Problems Ulcer of left thigh (Chronic) Yeast dermatitis (Acute) Morbid obesity (Chronic) Type 2 diabetes mellitus (Chronic) HgbA1c 06/2016 6.5%. Lymphedema (Chronic) Venous insufficiency (chronic) (peripheral) (Chronic) Assessment: 1. Nonhealing diabetic ulcer left medial thigh. 2. Diabetes mellitus. 3. Yeast Dematitis. Plan: Continue silver dressing changes daily. For her fungal rash over lower abdomen and groin skin folds have prescribed Nystatin powder twice daily. Instructed patient and family member to clean area well daily and to dry well. Also encouraged to place a clean, dry towel between skin folds after powder is applied. Encourage nutritional supplementation with protein to help with the healing process. Dr. Tran discussed with the patient about wound closure with skin grafting at her last visit. She will think about it and let him know. If she wants to proceed with skin grafting, will obtain wound culture preop. Her latest HgA1c was 4.8 in January. For elective surgery such as skin grafting, the HgA1c needs to be less than 8. Follow-up in 2 weeks. Code Visit 111xxx-113xx: [id number] Jess subq tissue 20 sq cm/<
== END 2018-04-08 23:59 ==
LOC: WC 09:01
PROVIDERS: Family Provider Family Medicine; PCP Family Medicine; Visit Provider Surgery
DX: E11.622 Type 2 diabetes mellitus with other skin ulcer (principal); L97.122 Non-pressure chronic ulcer of left thigh with fat layer exposed; B37.2 Candidiasis of skin and nail; I89.0 Lymphedema, not elsewhere classified; E66.01 Morbid (severe) obesity due to excess calories; Z71.3 Dietary counseling and surveillance; I87.2 Venous insufficiency (chronic) (peripheral)
CPT/HCPCS: 11042

== ENCOUNTER 2018-06-23 23:58 | Inpatient (IN) | payer MEDICARE, SELFPAY ==
[2018-06-23 23:58] VITALS: BP 135/71; PULSE 72; RESP 19; TEMP 37.1; O2SAT 100; BMI 83.7
[2018-06-24] VITALS (24 sets, daily range): BP systolic 98–135; BP diastolic 44–71; PULSE 71–83; RESP 14–21; TEMP 36.8–37.3; O2SAT 93–100; BMI 79.7; BMI 79.8
--- NOTE | 2018-06-24 00:27 | RAD_ITS ---
STUDY: X-RAY CHEST REASON FOR EXAM: Female, 53 years old. Shortness of breath. TECHNIQUE: Single AP portable view of the chest. COMPARISON: 11/10/2017. FINDINGS: Diffuse increased density throughout the mid and lower lung bailey bilaterally. Some of this is likely to be an artifact related to the patient's body habitus and prominent overlying soft tissues. There are some increased vascular prominence and acute CHF is also thought to be likely. There is no evidence for focal pulmonary infiltrate. There is no demonstrated pleural abnormality. There is mild cardiac enlargement. Normal mediastinum and negra. Normal visualized pulmonary arteries. Normal visualized aortic arch and descending thoracic aorta. There are degenerative changes of the visualized thoracic spine. There is degenerative osteoarthritis of the bilateral shoulders. There is no demonstrated abnormality of the visualized soft tissue structures of the upper abdomen. RAD/Chest 1 View (Portable) IMPRESSION: Acute CHF Mild cardiomegaly. Electronically Signed: Marcel Aden MD at 1:44 EST , Service support ,
--- NOTE | 2018-06-24 00:28 | EKG12_ITS ---
Test Reason : SOB Blood Pressure : / mmHG Vent. Rate : 071 BPM Atrial Rate : 071 BPM P-R Int : 178 ms QRS Dur : 104 ms QT Int : 486 ms P-R-T Axes : 068 092 071 degrees QTc Int : 528 ms Normal sinus rhythm Rightward axis Incomplete right bundle branch block Prolonged QT Abnormal ECG Confirmed by JOHANNA RUBI, PEDRO LUIS ([id number]), website/blog editor VICK BAH ([id number]) on 06/25/2018 3:46:21 PM Referred By: YVONNE Confirmed By:PEDRO LUIS SPENCER MD
[2018-06-24 00:59] LABS: Absolute Lymphocyte Count 0.84 X10^3/ul (0.83-4.51); Basophil# 0.01 X10^3/uL; Basophil% 0.2 % (0-1); Eosinophil# 0.36 X10^3/uL; Eosinophils% 5.4 % (0-5); Hematocrit 28.6 % (37-47); Hemoglobin 7.4 g/dl (12.0-15.0); Lymphocyte # 0.84 X10^3/ul (4.0); Lymphocyte % 12.7 % (19-41); Mean Corp Hgb Conc 25.9 g/gl (32-36); Mean Corpuscular Volume 92.9 fL (81-99); Monocyte# 0.37 X10^3/uL; Monocyte% 5.6 % (0-10); Neutrophil # 5.03 X10^3/uL (2.7-7.7); Neutrophil % 75.9 % (47-70); POSITIVE COUNT NO; POSITIVE DIFFERENTIAL NO; POSITIVE MORPHOLOGY NO; Platelet Count 190 K/mm3 (150-450); RBC Distribution Width CV 18.9 % (11.6-14.6); RBC Distribution Width SD 63.8 fl (35.1-43.9); Red Blood Count 3.08 M/mm3 (4.2-5.4); White Blood Count 6.6 K/mm3 (4.4-11.0)
[2018-06-24 01:09] LABS: Anion Gap 3 (5-15); BUN 9 mg/dL (7-18); BUN/Creat Ratio 10.1 RATIO (10-20); Calcium,Total 7.5 mg/dL (8.5-10.1); Chloride 107 mmol/L (98-107); Creatinine, Serum 0.89 mg/dL (0.55-1.02); EST Glomerular Filtration Rate 71 mL/min (>60); Est Glom Filt Rate - Afr Amer 86 mL/min (>60); Estimated Creatinine Clearance 52.51 ml/min; Glucose 103 mg/dL (74-106); Potassium 3.5 mmol/L (3.5-5.1); Sodium Level 143 mmol/L (136-145)
[2018-06-24 01:20] LABS: Bacteria 0 SEEN /hpf (None Seen); Mucous, Urine 0 SEEN /hpf (<or=2+); Red Blood Cells-Urine 0 SEEN /hpf (0-5); White Blood Cells 0 SEEN /hpf (0-5)
[2018-06-24 01:22] LABS: Color, Urine Yellow (Yellow); Glucose, Dipstick Normal (Normal); Ketone-Dipstick Negative (Negative); Leukocyte Esterase-Dipstick Negative /ul (Negative); Nitrite-Dipstick Negative (Negative); Occult Blood-Urine Negative /ul (Negative); Protein-Dipstick 15 mg/dl (Negative); Specific Gravity, Urine 1.015 (1.002-1.030); Urine Bilirubin Dipstick Negative (Negative); Urine Clarity Clear (Clear); Urine Urobilinogen Normal (Normal)
[2018-06-24 01:32] LABS: Squamous Epithelial Cells - UA 0-5 SEEN /hpf (5-10)
--- NOTE | 2018-06-24 01:55 | ED.RN ---
chf PATIENT, NO SIGNS OF INFECTION. NOSEPSIS.
--- NOTE | 2018-06-24 02:06 | ED.VISSUMM ---
- ER Visit Summary Date of Service: 06/24/18 Chief Complaint: Dyspnea, cough History of Present Illness: The patient is a 53 F patient presents from home increasing shortness of breath over the past week. History of CHF, reports increased leg swelling. Complains of orthopnea and dyspnea with exertion. Mild productive sputum white in color over the past week. Complains of chills. Decreased urine output. Patient states she wears oxygen at night. However increasing oxygen demand during the day. Does not check her weight. History of chronic lymphedema, she emanates with a walker. Reports unable to get around over the last 2 days. No exertional chest pains or tightness. Physical Examination: General: Alert and oriented ?3, BMI 83, on oxygen in no acute distress HEENT: Normocephalic, atraumatic. Moist mucosa membranes Neck: supple, nontender. Cardiovascular: Regular rate and rhythm, no murmurs Respiratory: Diminished breath sounds Abdomen: Soft, nontender, nondistended Rectal: Nonthrombosed hemorrhoids, brown stools. Extremities: Nontender, significant lymphedema bilaterally pulses intact ?4 Neuro: no focal neurological deficits. Test Results: EKG sinus rate [address] or T wave changes. White count 6.6 hemoglobin 7.4 platelets 190. Potassium 3.5 creatinine 0.89. UA normal. BNP 244, troponin less than 0.015. Chest x-ray CHF findings per radiology. Emergency Department Course and Treatment: Patient in no acute distress stable on oxygen. Chronic lymphedema there is no pitting. History reports increasing oxygen demand. Workup initiated. Chest x-ray does note concerns for CHF. Given Lasix IV. EKG is sinus. Hemoglobin 7.4 most recent was 9.5 she was 6.7 back in November 2017. Discussed the findings with patient she states she was given blood transfusion at that time. States occasional blood in her stools, rectal examination notes brown stools, Hemoccult was pending. Concerns for CHF and increasing oxygen demand along with potential symptomatic anemia will discuss with hospitalist for admission for further management. Discussed with Dr. Stack, will order for 1 unit of blood. Will admit for inpatient management. Treatment Plan: [] Disposition: Admission Impression: 1. CHF exacerbation 2. Anemia This note was generated with [employer] dictation software. It may contain incorrect words, spelling, and punctuation that were not noted in review of the chart prior to signing ED Disposition - Plan for ED Patient: Disposition: Acute Care Hospital [facility] Chief Complaint: Shortness of Breath Diagnosis: CHF exacerbation, Anemia Referrals: Merrick Mace MD [Primary Care Provider] -
--- NOTE | 2018-06-24 02:10 | ED.DCSUM_ITS ---
- ER Visit Summary Date of Service: 06/24/18 Chief Complaint: Dyspnea, cough History of Present Illness: The patient is a 53 F patient presents from home increasing shortness of breath over the past week. History of CHF, reports increased leg swelling. Complains of orthopnea and dyspnea with exertion. Mild productive sputum white in color over the past week. Complains of chills. Decreased urine output. Patient states she wears oxygen at night. However increasing oxygen demand during the day. Does not check her weight. History of chronic lymphedema, she emanates with a walker. Reports unable to get around over the last 2 days. No exertional chest pains or tightness. Physical Examination: General: Alert and oriented ?3, BMI 83, on oxygen in no acute distress HEENT: Normocephalic, atraumatic. Moist mucosa membranes Neck: supple, nontender. Cardiovascular: Regular rate and rhythm, no murmurs Respiratory: Diminished breath sounds Abdomen: Soft, nontender, nondistended Rectal: Nonthrombosed hemorrhoids, brown stools. Extremities: Nontender, significant lymphedema bilaterally pulses intact ?4 Neuro: no focal neurological deficits. Test Results: EKG sinus rate [address] or T wave changes. White count 6.6 hemoglobin 7.4 platelets 190. Potassium 3.5 creatinine 0.89. UA normal. BNP 244, troponin less than 0.015. Chest x-ray CHF findings per radiology. Emergency Department Course and Treatment: Patient in no acute distress stable on oxygen. Chronic lymphedema there is no pitting. History reports increasing oxygen demand. Workup initiated. Chest x-ray does note concerns for CHF. Given Lasix IV. EKG is sinus. Hemoglobin 7.4 most recent was 9.5 she was 6.7 back in November 2017. Discussed the findings with patient she states she was given blood transfusion at that time. States occasional blood in her stools, rectal examination notes brown stools, Hemoccult was pending. Concerns for CHF and increasing oxygen demand along with potential symptomatic anemia will discuss with hospitalist for admission for further management. Discussed with Dr. Stack, will order for 1 unit of blood. Will admit for inpatient management. Treatment Plan: [] Disposition: Admission Impression: 1. CHF exacerbation 2. Anemia This note was generated with [employer] dictation software. It may contain incorrect words, spelling, and punctuation that were not noted in review of the chart prior to signing ED Disposition - Plan for ED Patient: Disposition: Acute Care Hospital [facility] Chief Complaint: Shortness of Breath Diagnosis: CHF exacerbation, Anemia Referrals: Merrick Mace MD [Primary Care Provider] -
--- NOTE | 2018-06-24 02:15 | ED.RN ---
pt GIVEN LASIX. RECEIVED OKAY FROM DR. RUSSELL TO PLACE PURE WICK EXTERNAL RAMOS DEVICE ON PT. PT EDUCATED AND WAS COMFORTABLE THROUGHOUT PLACEMENT. HOOKED TO GENTLE SUCTION.
[2018-06-24] MEDS: Furosemide 40 MG/4 ML Vial IV ×3 (02:33→22:53)
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
--- NOTE | 2018-06-24 03:46 | ECHOD_ITS ---
Reason For Study: CHF Procedure This was a 2D Doppler, Color Flow transthoracic echocardiogram. The study was technically difficult. Did not use Definity due to increased PAP. Exam performed portable in patient room. Left Ventricle Normal size and thickness. The estimated ejection fraction is 65 %. Stage 2 diastolic dysfunction. No regional wall motion abnormalities noted. Right Ventricle Moderately dilated right ventricle. Mild global right ventricular systolic dysfunction. Atria Normal left atrium. Normal right atrium. Normal atrial septum. Mitral Valve The mitral valve is structurally normal. No prolapse or stenosis seen. Trivial mitral valve insufficiency. Tricuspid Valve Normal tricuspid valve. Mild (1+) tricuspid valve insufficiency. Right ventricular systolic pressure estimated to be 56 mmHg. Moderate pulmonary hypertension. Aortic Valve Trisinus/trileaflet aortic valve. Mild diffuse aortic valve thickening. Pulmonic Valve The pulmonic valve is not well visualized. Great Vessels Normal aortic root. Normal arch. Pericardium/Pleural No pericardial effusion. MMode/2D Measurements & Calculations LVIDd: 5.6 cm IVSd: 1.3 cm LVOT diam: 2.1 cm LVIDs: 3.5 cm LVPWd: 1.0 cm LVOT area: 3.6 cm2 RVDd: 4.5 cm FS: 38.4 % Ao root diam: 3.1 cm LAV(MOD-bp): 41.6 ml LA A4 area: 13.0 cm2 LAV(MOD-bp) Indexed: 16.1 ml/m2 LAV(MOD-sp2): 46.9 ml LAV(MOD-sp4): 30.8 ml LA dimension(2D): 4.9 cm RA A4 area: 15.9 cm2 Time Measurements MV dec time: 0.14 sec Doppler Measurements & Calculations MV E max abdiel: 120.4 cm/sec MV V2 max: 163.7 cm/sec MV P1/2t max abdiel: 161.1 cm/sec MV A max abdiel: 87.8 cm/sec MV max P.7 mmHg MV P1/2t: 92.5 msec MV E/A: 1.4 MV V2 mean: 97.2 cm/sec MV dec slope: 510.0 cm/sec2 MV mean P.2 mmHg MV V2 VTI: 47.8 cm MVA(P1/2t): 2.4 cm2 MVA(VTI): 2.9 cm2 Ao V2 max: 230.0 cm/sec LV V1 max: 151.6 cm/sec SV(LVOT): 138.6 ml Ao max P.2 mmHg LV V1 max P.2 mmHg Ao V2 mean: 167.2 cm/sec LV V1 mean P.0 mmHg Ao mean P.1 mmHg LV V1 mean: 117.5 cm/sec Ao V2 VTI: 51.7 cm LV V1 VTI: 38.3 cm VIDAL(I,D): 2.7 cm2 VIDAL(V,D): 2.4 cm2 PA V2 max: 140.7 cm/sec TR max abdiel: 391.5 cm/sec TR max P.3 mmHg Interpretation Summary The estimated ejection fraction is 65 %. Moderately dilated right ventricle. Trivial mitral valve insufficiency. Mild (1+) tricuspid valve insufficiency. Right ventricular systolic pressure estimated to be 56 mmHg. Moderate pulmonary hypertension. Stage 2 diastolic dysfunction. Compared to echo report dated 10/06/2017, LV function has remained the same, but RVSP has gone from 42 to 56 mm Hg. May be underestimated. The study was technically difficult. Ordering Physician: Ninfa Stack Referring Physician: Merrick Mace Performed By: Shaila Haskins RDCS, RVT
[2018-06-24 04:32] LABS: Absolute Lymphocyte Count 0.93 X10^3/ul (0.83-4.51); Absolute Neutrophil Count 4.8 X10^3/uL (2.0-7.7); Basophil# 0.01 X10^3/uL; Basophil% 0.2 % (0-1); Eosinophil# 0.37 X10^3/uL; Eosinophils% 5.6 % (0-5); Hematocrit 28.5 % (37-47); Hemoglobin 7.2 g/dl (12.0-15.0); Lymphocyte # 0.93 X10^3/ul (4.0); Lymphocyte % 14.2 % (19-41); Mean Corp Hgb Conc 25.3 g/gl (32-36); Mean Corpuscular Hgb 24.1 pg (27.0-32.0); Mean Corpuscular Volume 95.3 fL (81-99); Mean Platelet Vol. 8.8 fl (6.2-12.0); Monocyte# 0.43 X10^3/uL; Monocyte% 6.6 % (0-10); Neutrophil % 73.1 % (47-70); Platelet Count 226 K/mm3 (150-450); RBC Distribution Width CV 18.7 % (11.6-14.6); RBC Distribution Width SD 62.3 fl (35.1-43.9); Red Blood Count 2.99 M/mm3 (4.2-5.4); White Blood Count 6.6 K/mm3 (4.4-11.0)
[2018-06-24 04:35] LABS: POSITIVE COUNT NO; POSITIVE DIFFERENTIAL NO; POSITIVE MORPHOLOGY NO
[2018-06-24] MEDS: Nystatin Powder 15gm Bottle 1 APPLIC TOPICAL ×2 (04:36→22:51)
[2018-06-24 04:46] LABS: Anion Gap 5 (5-15); BUN 8 mg/dL (7-18); BUN/Creat Ratio 10.4 RATIO (10-20); Calcium,Total 7.8 mg/dL (8.5-10.1); Chloride 106 mmol/L (98-107); Cholesterol 121 mg/dL (200); Creatinine, Serum 0.77 mg/dL (0.55-1.02); EST Glomerular Filtration Rate 84 mL/min (>60); Est Glom Filt Rate - Afr Amer 101 mL/min (>60); Estimated Creatinine Clearance 60.69 ml/min; Glucose 89 mg/dL (74-106); High Density Lipoprotein 34 mg/dL; Potassium 3.3 mmol/L (3.5-5.1); Sodium Level 145 mmol/L (136-145); Triglycerides 129 mg/dL; Very Low Density Lipoprotein 26 mg/dL (5-40)
[2018-06-24 04:48] LABS: Thyroid Stim Hormone (TSH) 5.76 uIU/mL (0.358-3.74)
[2018-06-24] MEDS: AcetaZOLAMIDE 250 MG Tablet 125 MG PO ×3 (05:28→22:52)
--- NOTE | 2018-06-24 05:55 | EKG12_ITS ---
Test Reason : AM EKG Blood Pressure : / mmHG Vent. Rate : 071 BPM Atrial Rate : 071 BPM P-R Int : 172 ms QRS Dur : 104 ms QT Int : 480 ms P-R-T Axes : 046 087 060 degrees QTc Int : 521 ms Normal sinus rhythm Prolonged QT Abnormal ECG Confirmed by JOHANNA RUBI, PEDRO LUIS ([id number]), non linear editor VICK BAH ([id number]) on 06/25/2018 4:10:55 PM Referred By: SHERRON Confirmed By:PEDRO LUIS SPENCER MD
[2018-06-24 07:21] LABS: Bedside Glucose 104 mg/dL (70-110)
[2018-06-24 07:21] LABS: Bedside Glucose 84 mg/dL (70-110)
[2018-06-24 07:40] LABS: Bedside Glucose 94 mg/dL (70-110)
[2018-06-24 08:05] LABS: Hemoglobin A1c < 3.5 % (4.2-6.3)
[2018-06-24] MEDS: Multivitamins,Therapeutic Tablet 1 TABLET PO (08:52)
[2018-06-24] MEDS: Enoxaparin 40 MG/0.4 ML Syringe SC (08:52)
[2018-06-24] MEDS: Aspirin 81 MG TAB.CHEW PO (08:52)
[2018-06-24] MEDS: Metoprolol(XL)Succ 25 MG Tablet PO (08:53)
[2018-06-24] MEDS: Pantoprazole Sodium 40 MG Tablet PO (08:53)
[2018-06-24] MEDS: dilTIAZem CD 120 MG Capsule PO ×2 (08:53→22:53)
[2018-06-24] MEDS: Iron Polysaccharide Complex 150 MG CAPSULE PO ×2 (08:53→22:53)
[2018-06-24] MEDS: Lisinopril 5 MG Tablet PO (08:54)
[2018-06-24] MEDS: Glucerna Shake 120 ML LIQUID PO ×2 (09:43→13:07)
--- NOTE | 2018-06-24 10:00 | CASEMGMT ---
Assessment- 06-24-18 SW met with patient, introduced self and role at [facility]. Living situation- Patient lives with her in a mobile home with a ramp entrance. PCP: Dr Mace Specialists: None Pharmacy: [facility] DME: ramp entrance, walker, bedside commode, hospital bed, and O2 from [facility] (2 L during day and 4L at night) ADL's/IADL's: Patient uses a walker, she gets assist with all adl's. Past SNF/rehab: She has [facility] to [facility], [facility], and [facility] Past HH: [facility] HH LW: No POA: No SW noted patient completed a Medicaid application during past visit. Patient said they did not qualify. SW asked about their income and it does not sound like they would qualify for any of the Medicare assistance programs. Plan: Patient plans on returning home at d/c. She said she may need home health. Lilian ZHOU MSW
--- NOTE | 2018-06-24 11:25 | PN_ITS ---
Patient Problems: Active and Suspected Problems CHF exacerbation (Acute) Anemia (Acute) Subjective: Patient is a 53-year-old lady morbidly obese BMI of 80 who presented with progressive shortness of breath cough as well as bilateral lower extremity edema and assessment of acute on congestive heart failure made admitted to monitored bed for further management Objective: GENERAL: cooperative HEENT: Atraumatic; moist oral mucosa EYES; Anicteric, Normal Conjunctiva NECK; supple, normal thyroid, no distended JVD. RESPIRATORY: Diminished to auscultation bilaterally, CARDIOVASCULAR: Regular S1 S2, no audible murmurs GI: soft, non-tender, normoactive bowel sounds, : No Renal angle tenderness; EXTREMITIES: Bilateral venous stasis NEURO: Awake; no lateralizing signs. SKIN: No Rash PSYCH; Normal affect Vitals/I&O's: Vital Signs Temp Pulse Resp BP Pulse Ox 98.3 F 78 15 110/62 96 06/24/18 10:45 06/24/18 10:45 06/24/18 10:45 06/24/18 10:45 06/24/18 10:45 Oxygen Flow Rate (L/min) 4 Oxygen Delivery Method Nasal Cannula Weight: 185.3 kg Body Mass Index (BMI) 79.7 Intake and Output for Last 24 Hours 06/22/18 06/23/18 06/24/18 23:59 23:59 23:59 Intake Total 516 / 516 Output Total 1300 / 1300 Balance -784 / -784 Microbiology Past 72 Hours 06/24/18 01:45 Stool Stool Occult Blood (JENNIFER) - Final Laboratory Results 06/24/18 00:30: WBC 6.6, RBC 3.08 L, Hgb 7.4 L, Hct 28.6 L, MCV 92.9, MCH 24.0 L , MCHC 25.9 L, RDW 18.9 H, RDW Differential 63.8 H, Plt Count 190, MPV 9.0, Immature Gran % (Auto) 0.200, Neut % (Auto) 75.9 H, Lymph % (Auto) 12.7 L, [place] % (Auto) 5.6, Eos % (Auto) 5.4 H, Baso % (Auto) 0.2, Absolute Neuts (auto) 5.0, Absolute Lymphs (auto) 0.84, Total Counted Not Reportable 06/24/18 00:30: Sodium 143, Potassium 3.5, Chloride 107, Carbon Dioxide 33.0 H, Anion Gap 3 L, BUN 9, Creatinine 0.89, Estim Creat Clear Calc 52.51, Est GFR (MDRD) Af Amer 86, Est GFR (MDRD) Non-Af 71, BUN/Creatinine Ratio 10.1, Glucose 103, Calcium 7.5 L, Troponin I < 0.015 06/24/18 00:30: B-Natriuretic Peptide 244.0 H 06/24/18 00:30: Magnesium 2.0, TSH 5.76 H 06/24/18 01:15: Urine Color Yellow, Urine Clarity Clear, Urine pH 6.0, Ur Specific [place] 1.015, Urine Protein 15 H, Urine Glucose (UA) Normal, Urine Ketones Negative, Urine Occult Blood Negative, Urine Nitrite Negative, Urine Bilirubin Negative, Urine Urobilinogen Normal, Ur Leukocyte Esterase Negative, Urine RBC 0 SEEN, Urine WBC 0 SEEN, Ur Squamous Epith Cells 0-5 SEEN, Urine Bacteria 0 SEEN, Urine Mucus 0 SEEN 06/24/18 02:43: Blood Type O NEGATIVE, Antibody Screen POSITIVE H, Antibody Identification ANTI-K, Antigen Identification K ANTIGEN - NEGATIVE, Crossmatch See Detail 06/24/18 04:14: Hemoglobin A1c < 3.5 L 06/24/18 04:14: WBC 6.6, RBC 2.99 L, Hgb 7.2 L, Hct 28.5 L, MCV 95.3, MCH 24.1 L , MCHC 25.3 L, RDW 18.7 H, RDW Differential 62.3 H, Plt Count 226, MPV 8.8, Immature Gran % (Auto) 0.300, Neut % (Auto) 73.1 H, Lymph % (Auto) 14.2 L, [place] % (Auto) 6.6, Eos % (Auto) 5.6 H, Baso % (Auto) 0.2, Absolute Neuts (auto) 4.8, Absolute Lymphs (auto) 0.93, Total Counted Not Reportable 06/24/18 04:14: Sodium 145, Potassium 3.3 L, Chloride 106, Carbon Dioxide 34.0 H , Anion Gap 5, BUN 8, Creatinine 0.77, Estim Creat Clear Calc 60.69, Est GFR (MDRD) Af Amer 101, Est GFR (MDRD) Non-Af 84, BUN/Creatinine Ratio 10.4, Glucose 89, Calcium 7.8 L, Troponin I < 0.015, Triglycerides 129, Cholesterol 121, LDL Cholesterol 61, VLDL Cholesterol 26, HDL Cholesterol 34 L 06/24/18 05:24: POC Glucose 84 06/24/18 06:40: Troponin I < 0.015 06/24/18 06:50: POC Glucose 104 06/24/18 07:33: POC Glucose 94 Current Medications Acetaminophen (Tylenol) 1,000 mg PO Q8H PRN PRN PRN Reason: mild pain Acetazolamide (Diamox) 125 mg PO TID [facility] Last Admin: 06/24/18 05:28 Dose: 125 mg Al Hydroxide/Mg Hydroxide (Mylanta Ii) 30 ml PO Q6H PRN PRN PRN Reason: Gastric burning Albuterol Sulfate (Ventolin Aerosols) 2.5 mg INHALATION Q2H PRN PRN PRN Reason: dyspnea, wheezing Albuterol/Ipratropium (Duoneb) 3 ml INHALATION Q6HWA.RT [facility] Last Admin: 06/24/18 07:20 Dose: Not Given Alprazolam (Xanax) 0.5 mg PO Q6H PRN PRN PRN Reason: ANXIETY Aspirin (Aspirin, Baby) 81 mg PO DAILY@0800 [facility] Last Admin: 06/24/18 08:52 Dose: 81 mg Atorvastatin Calcium (Lipitor) 80 mg PO QHS [facility] Calamine/Phenol (Calmoseptine Ointment) 1 applic TOPICAL TID [facility]; Protocol Last Admin: 06/24/18 05:28 Dose: Not Given Cyclobenzaprine HCl (Flexeril) 10 mg PO TID PRN PRN PRN Reason: muscle spasms Dicyclomine HCl (Bentyl) 20 mg PO Q6H PRN PRN PRN Reason: abd pain Diltiazem HCl (Cardizem Cd) 120 mg PO BID [facility] Last Admin: 06/24/18 08:53 Dose: 120 mg Enoxaparin Sodium (Lovenox) 40 mg SC DAILY@1000 [facility] Last Admin: 06/24/18 08:52 Dose: 40 mg Furosemide (Lasix) 40 mg IV Q8 [facility] Gabapentin (Neurontin) 300 mg PO HS [facility] Insulin Human Lispro (Humalog Kwikpen (Bkc)) 0 unit SC ACHS [facility]; Protocol Last Admin: 06/24/18 08:48 Dose: Not Given Lisinopril (Zestril) 5 mg PO DAILY [facility] Last Admin: 06/24/18 08:54 Dose: 5 mg Magnesium Hydroxide (Milk Of Magnesia) 30 ml PO DAILY PRN PRN Reason: Constipation Metoprolol Succinate (Toprol Xl (Beta Vikki)) 25 mg PO DAILY [facility] Last Admin: 06/24/18 08:53 Dose: 25 mg Morphine Sulfate () 2 - 4 mg IV Q3H PRN PRN PRN Reason: Severe Pain (pain scale 6-10) Morphine Sulfate () 1 - 2 mg IV Q4H PRN PRN PRN Reason: Moderate Pain (pain scale 4-5) Morphine Sulfate () 2 - 4 mg IV Q3H PRN PRN PRN Reason: Severe Pain (pain scale 6-10) [facility]) [facility] Admin: 06/24/18 08:52 Dose: 1 tablet Nutritional Formula (Saul - Newbury Flavor) [facility] Last Admin: 06/24/18 08:52 Dose: 1 packet Nutritional Formula (Lactose Free) (Glucerna Shake) 120 ml PO 4X/DAY [facility] Last Admin: 06/24/18 09:43 Dose: 120 ml Nystatin (Mycostatin Powder) 1 applic TOPICAL 0600,2200 [facility]; Protocol Last Admin: 06/24/18 04:36 Dose: 1 applicatio Oxycodone HCl (Oxyir) 5 mg PO Q4H PRN PRN PRN Reason: Moderate Pain (pain scale 4-5) Pantoprazole Sodium (Protonix) 40 mg PO DAILY [facility] Last Admin: 06/24/18 08:53 Dose: 40 mg Polysaccharide Iron Complex (Ferrex 150) 150 mg PO BID [facility] Last Admin: 06/24/18 08:53 Dose: 150 mg Sodium Chloride () 5 - 15 ml IV UD PRN PRN Reason: SALINE FLUSH Medical Necessity - Tobacco Use Smoking Status: Former smoker Tobacco Use: Non-smoker Assessment/Plan All Active Problems Yeast dermatitis (Acute) CHF exacerbation (Acute) History of necrotizing fasciitis (Acute) Abscess of left thigh (Acute) CAP (community acquired pneumonia) (Acute) Lower GI bleed (Acute) Acute and chronic respiratory failure with hypoxia (Acute) Acute on chronic diastolic heart failure (Acute) Acute bronchitis with asthma with acute exacerbation (Acute) Shortness of breath (Acute) Acute on chronic diastolic heart failure (Acute) Acute bronchitis (Acute) Atrial fibrillation with RVR (Acute) Otitis externa (Acute) Metabolic alkalosis (Acute) Blood in stool (Acute) Anemia (Acute) Abdominal pain (Resolved) Patient is a 53-year-old lady morbidly obese BMI of 80 who presented with progressive shortness of breath cough as well as bilateral lower extremity edema and assessment of acute on congestive heart failure made admitted to monitored bed for further management 1. Acute on chronic diastolic congestive heart failure. Patient has been admitted to telemetry bed, placed on fluid restriction supplemental oxygen in addition to Lasix repeat echo ordered 2. Anemia secondary to anemia of chronic disorder do suspect she has anemia contributing to her heart failure. Being symptomatic and order was given for patient to be transfused with 1 unit PRBC 3. Chronic respiratory failure secondary to obesity hypoventilation syndrome patient is on baseline oxygen 4 L at night 3. Diabetes mellitus type 2 continued with home regimen in addition to Accu- Cheks before meals and at bedtime with sliding scale coverage 5. Mild intermittent asthma currently stable albuterol as needed 6. Obstructive sleep apnea 7. Nonobstructing left renal calculus 8. Degenerative joint disease 9. Fatty liver do suspect nonalcoholic fatty liver disease from patient's morbid obesity as well as diabetes mellitus type 2 10. Chronic bilateral lower extremity lymphedema from venous insufficiency 11. Onychomycosis 12. Morbid obesity with BMI of 79 lifestyle modification including weight loss advised to discuss with patient to follow-up with PCP for referral for consideration for gastric bypass 13. DVT prophylaxis: Lovenox Active Medications Acetaminophen (Tylenol) 1,000 mg PO Q8H PRN PRN PRN Reason: mild pain Acetazolamide (Diamox) 125 mg PO TID [facility] Last Admin: 06/24/18 05:28 Dose: 125 mg Al Hydroxide/Mg Hydroxide (Mylanta Ii) 30 ml PO Q6H PRN PRN PRN Reason: Gastric burning Albuterol Sulfate (Ventolin Aerosols) 2.5 mg INHALATION Q2H PRN PRN PRN Reason: dyspnea, wheezing Albuterol/Ipratropium (Duoneb) 3 ml INHALATION Q6HWA.RT [facility] Last Admin: 06/24/18 07:20 Dose: Not Given Alprazolam (Xanax) 0.5 mg PO Q6H PRN PRN PRN Reason: ANXIETY Aspirin (Aspirin, Baby) 81 mg PO DAILY@0800 [facility] Last Admin: 06/24/18 08:52 Dose: 81 mg Atorvastatin Calcium (Lipitor) 80 mg PO QHS [facility] Calamine/Phenol (Calmoseptine Ointment) 1 applic TOPICAL TID [facility]; Protocol Last Admin: 06/24/18 05:28 Dose: Not Given Cyclobenzaprine HCl (Flexeril) 10 mg PO TID PRN PRN PRN Reason: muscle spasms Dicyclomine HCl (Bentyl) 20 mg PO Q6H PRN PRN PRN Reason: abd pain Diltiazem HCl (Cardizem Cd) 120 mg PO BID [facility] Last Admin: 06/24/18 08:53 Dose: 120 mg Enoxaparin Sodium (Lovenox) 40 mg SC DAILY@1000 [facility] Last Admin: 06/24/18 08:52 Dose: 40 mg Furosemide (Lasix) 40 mg IV Q8 [facility] Gabapentin (Neurontin) 300 mg PO HS [facility] Insulin Human Lispro (Humalog Kwikpen (Bkc)) 0 unit SC [facility]; Protocol Last Admin: 06/24/18 08:48 Dose: Not Given Lisinopril (Zestril) 5 mg PO DAILY [facility] Last Admin: 06/24/18 08:54 Dose: 5 mg Magnesium Hydroxide (Milk Of Magnesia) 30 ml PO DAILY PRN PRN Reason: Constipation Metoprolol Succinate (Toprol Xl (Beta Vikki)) 25 mg PO DAILY [facility] Last Admin: 06/24/18 08:53 Dose: 25 mg Morphine Sulfate () 2 - 4 mg IV Q3H PRN PRN PRN Reason: Severe Pain (pain scale 6-10) Morphine Sulfate () 1 - 2 mg IV Q4H PRN PRN PRN Reason: Moderate Pain (pain scale 4-5) Morphine Sulfate () 2 - 4 mg IV Q3H PRN PRN PRN Reason: Severe Pain (pain scale 6-10) [facility]it[facility] ([facility]amin) [facility] Last Admin: 06/24/18 08:52 Dose: 1 tablet Nutritional Formula (Saul - [place] Flavor) [facility] Last Admin: 06/24/18 08:52 Dose: 1 packet Nutritional Formula (Lactose Free) (Glucerna Shake) 120 ml PO 4X/DAY [facility] Last Admin: 06/24/18 09:43 Dose: 120 ml Nystatin (Mycostatin Powder) 1 applic TOPICAL 0600,2200 [facility]; Protocol Last Admin: 06/24/18 04:36 Dose: 1 applicatio Oxycodone HCl (Oxyir) 5 mg PO Q4H PRN PRN PRN Reason: Moderate Pain (pain scale 4-5) Pantoprazole Sodium (Protonix) 40 mg PO DAILY [facility] Last Admin: 06/24/18 08:53 Dose: 40 mg Polysaccharide Iron Complex (Ferrex 150) 150 mg PO BID [facility] Last Admin: 06/24/18 08:53 Dose: 150 mg Sodium Chloride () 5 - 15 ml IV UD PRN PRN Reason: SALINE FLUSH Clinical Impression(s) from Imaging Studies Chest X-Ray 06/24/18 00:27 IMPRESSION: Acute CHF Mild cardiomegaly. Electronically Signed: Marcel Aden MD at 1:44 EST , Service support , Code Visit Inpatient E&M: [id number] Subs Hosp L3
[2018-06-24 11:46] LABS: Bedside Glucose 112 mg/dL (70-110)
[2018-06-24] MEDS: Menthol/Lanolin/Calamine/Znox 113 GM Tube 1 APPLIC TOPICAL (13:03)
[2018-06-24 16:16] LABS: Bedside Glucose 125 mg/dL (70-110)
--- NOTE | 2018-06-24 17:15 | RAD_ITS ---
STUDY: X-RAY CHEST REASON FOR EXAM: Female, 53 years old. CHF, short of breath TECHNIQUE: Single frontal view COMPARISON: June 24, 2018 at 01:23 hours FINDINGS: The lungs are expanded. The lateral interstitial prominence. Mildly enlarged heart. Normal mediastinum and negra. Prominence of the pulmonary arteries. Normal visualized aortic arch and descending thoracic aorta. Normal visualized thoracic spine. Normal visualized ribs, clavicles, and shoulders. There is no demonstrated abnormality of the visualized soft tissue structures of the upper abdomen. RAD/Chest 1 View (Portable) IMPRESSION: Mild cardiomegaly. Pulmonary vascular congestion. Interstitial prominence bilaterally. Electronically Signed: Nazario Guerrero DO at 23:09 EST Tel [phone], Service support ,
[2018-06-24] MEDS: Atorvastatin Calcium 80 MG Tablet PO (22:52)
[2018-06-24] MEDS: Gabapentin 300 MG Capsule PO (22:52)
[2018-06-24] MEDS: 0.9% NaCl Peripheral Flush Adult/Peds IV (22:54)
[2018-06-24 23:21] LABS: Bedside Glucose 136 mg/dL (70-110)
[2018-06-25] VITALS (16 sets, daily range): BP systolic 111–134; BP diastolic 48–68; PULSE 69–80; RESP 15–18; TEMP 36.6–36.9; O2SAT 93–98
[2018-06-25] MEDS: Furosemide 40 MG/4 ML Vial IV ×3 (05:16→22:32)
[2018-06-25] MEDS: 0.9% NaCl Peripheral Flush Adult/Peds IV ×4 (05:16→22:35)
[2018-06-25] MEDS: AcetaZOLAMIDE 250 MG Tablet 125 MG PO ×3 (05:17→22:31)
[2018-06-25] MEDS: Nystatin Powder 15gm Bottle 1 APPLIC TOPICAL ×2 (05:17→22:32)
[2018-06-25 06:25] LABS: Hematocrit 27.9 % (37-47); Hemoglobin 7.2 g/dl (12.0-15.0); Mean Corp Hgb Conc 25.8 g/gl (32-36); Mean Corpuscular Hgb 24.7 pg (27.0-32.0); Mean Corpuscular Volume 95.5 fL (81-99); Mean Platelet Vol. 9.3 fl (6.2-12.0); Platelet Count 214 K/mm3 (150-450); RBC Distribution Width CV 18.7 % (11.6-14.6); RBC Distribution Width SD 62.5 fl (35.1-43.9); Red Blood Count 2.92 M/mm3 (4.2-5.4); White Blood Count 6.4 K/mm3 (4.4-11.0)
[2018-06-25 06:27] LABS: Scan Indicated on CBC? Y/N NO
[2018-06-25 06:42] LABS: Anion Gap 4 (5-15); BUN 12 mg/dL (7-18); BUN/Creat Ratio 12.8 RATIO (10-20); Calcium,Total 7.8 mg/dL (8.5-10.1); Chloride 102 mmol/L (98-107); Creatinine, Serum 0.94 mg/dL (0.55-1.02); EST Glomerular Filtration Rate 66 mL/min (>60); Est Glom Filt Rate - Afr Amer 80 mL/min (>60); Estimated Creatinine Clearance 49.72 ml/min; Glucose 92 mg/dL (74-106); Magnesium 2.2 mg/dL (1.6-2.6); Potassium 3.1 mmol/L (3.5-5.1); Sodium Level 145 mmol/L (136-145)
[2018-06-25 06:56] LABS: Bedside Glucose 99 mg/dL (70-110)
[2018-06-25] MEDS: Multivitamins,Therapeutic Tablet 1 TABLET PO (08:50)
[2018-06-25] MEDS: Aspirin 81 MG TAB.CHEW PO (08:50)
[2018-06-25] MEDS: Metoprolol(XL)Succ 25 MG Tablet PO (09:00)
[2018-06-25] MEDS: Lisinopril 5 MG Tablet PO (09:00)
[2018-06-25] MEDS: Iron Polysaccharide Complex 150 MG CAPSULE PO ×2 (09:01→22:32)
[2018-06-25] MEDS: dilTIAZem CD 120 MG Capsule PO ×2 (09:02→22:31)
[2018-06-25] MEDS: Pantoprazole Sodium 40 MG Tablet PO (09:02)
[2018-06-25] MEDS: Enoxaparin 40 MG/0.4 ML Syringe SC (09:02)
--- NOTE | 2018-06-25 09:30 | CASEMGMT ---
SW spoke with patient. She said she does not have a healthcare POA or healthcare LW and is not interested in completing them at this time. Lilian ZHOU MSW
[2018-06-25 11:30] LABS: Bedside Glucose 103 mg/dL (70-110)
--- NOTE | 2018-06-25 12:59 | PCM.PROGNOTE ---
<Nenita Guallpa - Last Filed: 06/25/18 13:12> Patient Problems: Active and Suspected Problems CHF exacerbation (Acute) Anemia (Acute) Subjective: Patient seen and examined. Patient reports breathing is improved. Continues to have shortness of breath when lying flat. Denies other current complaints. - Physical Exam General: Alert, Oriented x3, Cooperative, No apparent distress HEENT: Atraumatic, PERRLA, EOMI, Normocephalic Oral: Moist Mucosa Neck: Supple, No JVD, Negative Carotid Bruits Lungs: Clear to auscultation, Diminished Cardiovascular: Regular rate, Regular Rhythm, Normal S1, Normal S2, No murmurs Abdomen: Bowel Sounds Present, Soft, Non Tender, Non-Distended, Obese Extremities: No clubbing, No cyanosis, Capillary Refill Less than 3 Seconds, - - Chronic lymphedema bilateral lower extremities Skin: No rashes, No breakdown, - - Chronic venous stasis changes bilateral lower extreme Musculoskeletal: No Tenderness to Palpation of Joints or Extremities Neurological: Cranial nerves II-XII grossly intact, Neuro grossly intact Psych/Mental Status: Flat Affect Vital Signs Temp Pulse Resp BP Pulse Ox 98.3 F 71 17 123/59 H 97 06/25/18 11:19 06/25/18 11:30 06/25/18 11:19 06/25/18 11:19 06/25/18 11:19 Oxygen Flow Rate (L/min) 2 Oxygen Delivery Method Nasal Cannula Weight: 400 lb 9.279 oz Body Mass Index (BMI) 79.7 Intake and Output for Last 24 Hours 06/23/18 06/24/18 06/25/18 23:59 23:59 23:59 Intake Total 1552 / 1552 740 / 740 Output Total 3200 / 3200 5625 / 5625 Balance -1648 / -1648 -4885 / -4885 Microbiology Past 72 Hours 06/24/18 05:10 Respiratory Panel (PCR) - Final Mucosa - Nose 06/24/18 01:45 Stool Occult Blood (JENNIFER) - Final Stool Laboratory Tests Past 24 Hrs 06/24/18 06/24/18 06/25/18 02:43 02:43 05:55 WBC 6.4 RBC 2.92 L Hgb 7.2 L Hct 27.9 L MCV 95.5 MCH 24.7 L MCHC 25.8 L RDW 18.7 H RDW Differential 62.5 H Plt Count 214 MPV 9.3 Sodium Potassium Chloride Carbon Dioxide Anion Gap BUN Creatinine Estim Creat Clear Calc Est GFR (MDRD) Af Amer Est GFR (MDRD) Non-Af BUN/Creatinine Ratio Glucose Calcium Magnesium Crossmatch See Detail See Detail 06/25/18 05:55 WBC RBC Hgb Hct MCV MCH MCHC RDW RDW Differential Plt Count MPV Sodium 145 Potassium 3.1 L Chloride 102 Carbon Dioxide 39.0 H Anion Gap 4 L BUN 12 Creatinine 0.94 Estim Creat Clear Calc 49.72 Est GFR (MDRD) Af Amer 80 Est GFR (MDRD) Non-Af 66 BUN/Creatinine Ratio 12.8 Glucose 92 Calcium 7.8 L Magnesium 2.2 Crossmatch POC Glucose 06/25/18 06/25/18 06/24/18 11:18 06:50 22:48 POC Glucose 103 99 136 H 06/24/18 16:12 POC Glucose 125 H Medical Necessity - Tobacco Use Smoking Status: Former smoker Tobacco Use: Non-smoker Assessment/Plan All Active Problems Yeast dermatitis (Acute) CHF exacerbation (Acute) History of necrotizing fasciitis (Acute) Abscess of left thigh (Acute) CAP (community acquired pneumonia) (Acute) Lower GI bleed (Acute) Acute and chronic respiratory failure with hypoxia (Acute) Acute on chronic diastolic heart failure (Acute) Acute bronchitis with asthma with acute exacerbation (Acute) Shortness of breath (Acute) Acute on chronic diastolic heart failure (Acute) Acute bronchitis (Acute) Atrial fibrillation with RVR (Acute) Otitis externa (Acute) Metabolic alkalosis (Acute) Blood in stool (Acute) Anemia (Acute) Abdominal pain (Resolved) 1. Acute on chronic diastolic CHF-echocardiogram showed an EF of 65%, mild tricuspid valve insufficiency, RVSP estimated to be 56 mmHg, moderate pulmonary hypertension. Repeat chest x-ray again shows pulmonary vascular congestion. Continue IV Lasix. Strict I&O. Daily weight. 1500 cc fluid restriction. Troponin negative. 2. Acute on chronic normocytic anemia-baseline hemoglobin 8-9. Hemoglobin 7.2. Status post 2 unit PRBC. Trend CBC. Stool negative for occult blood. Prior iron studies showed iron deficiency anemia. Recommend follow-up with hematology as outpatient. IV Venofer x1. 3. Mild hypokalemia-replace per protocol. Trend BMP. 4. Chronic hypoxic respiratory failure secondary to obesity hypoventilation syndrome-patient wears supplemental oxygen at night. 5. Type 2 diabetes [id number] AC at bedtime with sliding scale insulin. 6. Obstructive sleep apnea 7. Chronic bilateral lower extremity lymphedema/venous insufficiency-Anders wraps bilateral lower extremities 8. Fatty liver, suspected secondary to morbid obesity 9. Morbid obesity-BMI 79. Encouraged diet lifestyle modifications. 10. Paroxysmal atrial fibrillation-continue Cardizem, metoprolol. DVT prophylaxis-Lovenox Discharge planning: Anticipate discharge home tomorrow pending stable hemoglobin. PT eval pending. This patient was seen by MALGORZATA Elder under the supervision of Dr. Smith. <Sebastien Smith - Last Filed: 06/25/18 13:19> - Physical Exam Vital Signs Temp Pulse Resp BP Pulse Ox 98.3 F 71 17 123/59 H 97 06/25/18 11:19 06/25/18 11:30 06/25/18 11:19 06/25/18 11:19 06/25/18 11:19 Oxygen Flow Rate (L/min) 2 Oxygen Delivery Method Nasal Cannula Weight: 181.7 kg Body Mass Index (BMI) 79.7 Intake and Output for Last 24 Hours 06/23/18 06/24/18 06/25/18 23:59 23:59 23:59 Intake Total 1552 / 1552 740 / 740 Output Total 3200 / 3200 5625 / 5625 Balance -1648 / -1648 -4885 / -4885 Microbiology Past 72 Hours 06/24/18 05:10 Respiratory Panel (PCR) - Final Mucosa - Nose 06/24/18 01:45 Stool Occult Blood (JENNIFER) - Final Stool Laboratory Tests Past 24 Hrs 06/24/18 06/24/18 06/25/18 02:43 02:43 05:55 WBC 6.4 RBC 2.92 L Hgb 7.2 L Hct 27.9 L MCV 95.5 MCH 24.7 L MCHC 25.8 L RDW 18.7 H RDW Differential 62.5 H Plt Count 214 MPV 9.3 Sodium Potassium Chloride Carbon Dioxide Anion Gap BUN Creatinine Estim Creat Clear Calc Est GFR (MDRD) Af Amer Est GFR (MDRD) Non-Af BUN/Creatinine Ratio Glucose Calcium Magnesium Crossmatch See Detail See Detail 06/25/18 05:55 WBC RBC Hgb Hct MCV MCH MCHC RDW RDW Differential Plt Count MPV Sodium 145 Potassium 3.1 L Chloride 102 Carbon Dioxide 39.0 H Anion Gap 4 L BUN 12 Creatinine 0.94 Estim Creat Clear Calc 49.72 Est GFR (MDRD) Af Amer 80 Est GFR (MDRD) Non-Af 66 BUN/Creatinine Ratio 12.8 Glucose 92 Calcium 7.8 L Magnesium 2.2 Crossmatch POC Glucose 06/25/18 06/25/18 06/24/18 11:18 06:50 22:48 POC Glucose 103 99 136 H 06/24/18 16:12 POC Glucose 125 H Assessment/Plan This patient was seen in conjunction with MALGORZATA Elder . I have independently interviewed and examined the patient and reviewed pertinent historical, laboratory, and other data. Please refer to MALGORZATA Elder note for details of this patient's presentation, findings, and recommendations. I have reviewed MALGORZATA Elder note and concur with documented findings. In brief, Patient is a 53-year-old lady morbidly obese BMI of 80 who presented with progressive shortness of breath cough as well as bilateral lower extremity edema and assessment of acute on congestive heart failure made admitted to monitored bed for further management Physical Examination: GENERAL: cooperative HEENT: Atraumatic; moist oral mucosa EYES; Anicteric, Normal Conjunctiva NECK; supple, normal thyroid, no distended JVD. RESPIRATORY: Diminished to auscultation bilaterally, CARDIOVASCULAR: Regular S1 S2, no audible murmurs GI: soft, non-tender, normoactive bowel sounds, : No Renal angle tenderness; EXTREMITIES: Bilateral venous stasis NEURO: Awake; no lateralizing signs. SKIN: No Rash PSYCH; Normal affect 1. Acute on chronic diastolic congestive heart failure. 2. Anemia secondary to anemia of chronic 3. Chronic respiratory failure secondary to obesity hypoventilation syndrome patient is on baseline oxygen 4 L at night 4. Diabetes mellitus type 2 5. Mild intermittent asthma 6. Obstructive sleep apnea 7. Nonobstructing left renal calculus 8. Degenerative joint disease 9. Fatty liver do suspect nonalcoholic fatty liver disease from patient's morbid obesity as well as diabetes mellitus type 2 10. Chronic bilateral lower extremity lymphedema from venous insufficiency 11. Onychomycosis 12. Morbid obesity with BMI of 79 13. DVT prophylaxis: Lovenox Assessment: Recommendations: 1. I have discussed the results of my overview and impressions with the patient 2. Options for management were reviewed Code Visit Inpatient E&M: [id number] [facility] Hosp L3
[2018-06-25] MEDS: Menthol/Lanolin/Calamine/Znox 113 GM Tube 1 APPLIC TOPICAL ×2 (14:49→22:31)
[2018-06-25 16:50] LABS: Bedside Glucose 128 mg/dL (70-110)
[2018-06-25 22:15] LABS: Bedside Glucose 108 mg/dL (70-110)
[2018-06-25] MEDS: Atorvastatin Calcium 80 MG Tablet PO (22:32)
[2018-06-25] MEDS: Gabapentin 300 MG Capsule PO (22:33)
[2018-06-26] VITALS (13 sets, daily range): BP systolic 98–131; BP diastolic 46–64; PULSE 71–81; RESP 15–18; TEMP 36.4–36.8; O2SAT 95–100
[2018-06-26] MEDS: Menthol/Lanolin/Calamine/Znox 113 GM Tube 1 APPLIC TOPICAL ×3 (05:17→22:02)
[2018-06-26] MEDS: Nystatin Powder 15gm Bottle 1 APPLIC TOPICAL ×2 (05:17→22:02)
[2018-06-26] MEDS: 0.9% NaCl Peripheral Flush Adult/Peds IV ×4 (05:18→22:05)
[2018-06-26] MEDS: Furosemide 40 MG/4 ML Vial IV ×3 (05:18→22:03)
[2018-06-26] MEDS: AcetaZOLAMIDE 250 MG Tablet 125 MG PO ×3 (05:18→22:03)
[2018-06-26 06:47] LABS: Hematocrit 31.7 % (37-47); Hemoglobin 8.5 g/dl (12.0-15.0); Mean Corp Hgb Conc 26.8 g/gl (32-36); Mean Corpuscular Hgb 24.6 pg (27.0-32.0); Mean Corpuscular Volume 91.6 fL (81-99); Mean Platelet Vol. 9.2 fl (6.2-12.0); Platelet Count 214 K/mm3 (150-450); RBC Distribution Width CV 18.6 % (11.6-14.6); RBC Distribution Width SD 61.9 fl (35.1-43.9); Red Blood Count 3.46 M/mm3 (4.2-5.4); Scan Indicated on CBC? Y/N NO; White Blood Count 8.5 K/mm3 (4.4-11.0)
[2018-06-26 06:58] LABS: Anion Gap 3 (5-15); BUN 17 mg/dL (7-18); BUN/Creat Ratio 18.3 RATIO (10-20); Calcium,Total 8.1 mg/dL (8.5-10.1); Chloride 98 mmol/L (98-107); Creatinine, Serum 0.93 mg/dL (0.55-1.02); EST Glomerular Filtration Rate 67 mL/min (>60); Est Glom Filt Rate - Afr Amer 81 mL/min (>60); Estimated Creatinine Clearance 50.25 ml/min; Glucose 121 mg/dL (74-106); Potassium 3.6 mmol/L (3.5-5.1); Sodium Level 142 mmol/L (136-145)
[2018-06-26 07:01] LABS: Bedside Glucose 122 mg/dL (70-110)
[2018-06-26] MEDS: Aspirin 81 MG TAB.CHEW PO (08:36)
[2018-06-26] MEDS: Multivitamins,Therapeutic Tablet 1 TABLET PO (08:36)
[2018-06-26] MEDS: oxyCODONE 5 MG Tablet PO ×2 (08:36→14:21)
--- NOTE | 2018-06-26 10:10 | DCINST_ITS ---
- Discharge Diagnoses Current Active Problems: Current Active and Chronic Problems CHF exacerbation (Acute) PAF (paroxysmal atrial fibrillation) (Chronic) Anemia (Acute) You will use the following diet at home:: Fluid restricted (specify 2000 mls, 1500 mls) - 1500 Your food should be the consistency of: Regular Discharge Activity: Return to Normal Activity Allergies/Adverse Reactions: Allergies latex Allergy (Verified 06/24/18 05:09) Rash levofloxacin [From Levaquin] Adverse Reaction (Verified 06/24/18 05:09) SPEEDS UP MY HEART AND SHUTS DOWN MY KIDNEYS mushrooms Allergy (Uncoded 08/05/17 21:19) Anaphylaxis Medications to take at Discharge Albuterol Sulfate [Ventolin Hfa] 2 puff INHALATION Q4H PRN PRN 01/08/17 Pantoprazole Sodium [Protonix] 40 mg PO DAILY 02/13/17 Dicyclomine HCl [Bentyl] 20 mg PO Q6H PRN PRN 03/10/17 Multivitamin [Daily Multiple Vitamin] 1 each PO DAILY 08/05/17 AcetaAZOLAMIDE [Diamox] 250 mg PO TID #90 tab 10/21/17 Menthol/Lanolin/Calamine/Znox [Calmoseptine Ointment] 1 applic TOPICAL TID tube 10/21/17 Nystatin Powder [Mycostatin Powder] 1 applic TOPICAL 0600,2200 #1 bottle 10/21/17 ALPRAZolam [Xanax] 0.5 mg PO Q6H PRN PRN #30 tab 01/12/18 AcetaAZOLAMIDE [Diamox] 125 mg PO TID tablet 01/12/18 Acetaminophen [Tylenol] 1,000 mg PO Q8H PRN tablet 01/12/18 Cyclobenzaprine [Flexeril] 10 mg PO TID PRN PRN #90 tab 01/12/18 Diltiazem CD [Cardizem CD] 120 mg PO BID capsule 01/12/18 Gabapentin [Neurontin] 300 mg PO HS #30 cap 01/12/18 Iron Polysaccharide Complex [Ferrex 150] 150 mg PO BID #60 cap 01/12/18 Metoprolol(XL)Succ [Toprol Xl (Beta Vikki)] 25 mg PO DAILY tablet 01/12/18 Nutritional Supplement [Saul - ORANGE FLAVOR] 1 packet PO BIDCM packet 08/06/18 Glimepiride [Amaryl] 2 mg PO DAILY 06/24/18 Furosemide [Lasix] 40 mg PO BIDLX #60 tab 06/26/18 Iron Poly/Vit C [Niferex-150] 150 mg PO DAILYCM #30 capsule 06/26/18 The following prescriptions were given: Iron Poly/Vit C [Niferex-150] 150 mg PO DAILYCM #30 capsule Primary Care Physician: Merrick Mace MD [Primary Care Provider] - Please follow up with your Primary Care Physician in: in 5-7 days Test Results: Test results from this visit will be discussed in further detail at your follow- up appointment, if applicable. Proposed Discharge Date: 06/26/18
--- NOTE | 2018-06-26 10:15 | DS.PCM_ITS ---
Discharge Date and Diagnosis - Problem List Patient Problems: Active and Suspected Problems CHF exacerbation (Acute) Anemia (Acute) Date of Admission: 06/24/18 Date of Discharge: 06/26/18 - Primary Discharge Diagnosis Active and Suspected Problems CHF exacerbation (Acute) Anemia (Acute) - Secondary Discharge Diagnosis Chronic Problems Ulcer of left thigh (Chronic) PAF (paroxysmal atrial fibrillation) (Chronic) acute on chronic blood loss anemia (Chronic) Morbid obesity (Chronic) GERD (gastroesophageal reflux disease) (Chronic) Irritable bowel syndrome (Chronic) Overactive bladder (Chronic) Wide-complex tachycardia (Chronic) Chronic diastolic CHF (congestive heart failure) (Chronic) Type 2 diabetes mellitus (Chronic) HgbA1c 06/2016 6.5%. 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 Acute on chronic diastolic congestive heart failure. Patient has been admitted to telemetry bed, placed on fluid restriction supplemental oxygen in addition to Lasix repeat echo ordered. Echo demonstrated EF of 65% 2. Anemia secondary to anemia of chronic disorder do suspect she has anemia contributing to her heart failure. Being symptomatic and order was given for patient to be transfused with 1 unit PRBC regional unit was transfused on 06/25/2018 3. Chronic respiratory failure secondary to obesity hypoventilation syndrome patient is on baseline oxygen 4 L at night 3. Diabetes mellitus type 2 continued with home regimen in addition to Accu- Cheks before meals and at bedtime with sliding scale coverage 5. Mild intermittent asthma currently stable albuterol as needed 6. Obstructive sleep apnea 7. Nonobstructing left renal calculus 8. Degenerative joint disease 9. Fatty liver do suspect nonalcoholic fatty liver disease from patient's morbid obesity as well as diabetes mellitus type 2 10. Chronic bilateral lower extremity lymphedema from venous insufficiency 11. Onychomycosis 12. Morbid obesity with BMI of 79 lifestyle modification including weight loss advised to discuss with patient to follow-up with PCP for referral for consideration for gastric bypass 13. DVT prophylaxis: Lovenox Patient Problems: Active and Suspected Problems CHF exacerbation (Acute) Anemia (Acute) Objective: GENERAL: cooperative HEENT: Atraumatic; moist oral mucosa EYES; Anicteric, Normal Conjunctiva NECK; supple, normal thyroid, no distended JVD. RESPIRATORY: Diminished to auscultation bilaterally, CARDIOVASCULAR: Regular S1 S2, no audible murmurs GI: soft, non-tender, normoactive bowel sounds, : No Renal angle tenderness; EXTREMITIES: Bilateral venous stasis NEURO: Awake; no lateralizing signs. SKIN: No Rash PSYCH; Normal affect - Physical Exam Vital Signs Temp Pulse Resp BP Pulse Ox 97.5 F L 73 18 114/57 L 95 06/26/18 03:45 06/26/18 07:06 06/26/18 03:45 06/26/18 05:13 06/26/18 07:19 Oxygen Flow Rate (L/min) 2 Oxygen Delivery Method Nasal Cannula Weight: 175.4 kg Body Mass Index (BMI) 79.7 Intake and Output for Last 24 Hours 06/24/18 06/25/18 06/26/18 23:59 23:59 23:59 Intake Total 1552 / 1552 1543 / 1543 60 / 60 Output Total 3200 / 3200 9975 / 9975 2600 / 2600 Balance -1648 / -1648 -8432 / -8432 -2540 / -2540 Microbiology Past 72 Hours 06/24/18 05:10 Respiratory Panel (PCR) - Final Mucosa - Nose 06/24/18 01:45 Stool Occult Blood (JENNIFER) - Final Stool Laboratory Tests Past 24 Hrs 06/24/18 06/24/18 06/26/18 02:43 02:43 06:10 WBC 8.5 RBC 3.46 L Hgb 8.5 L Hct 31.7 L MCV 91.6 MCH 24.6 L MCHC 26.8 L RDW 18.6 H RDW Differential 61.9 H Plt Count 214 MPV 9.2 Sodium Potassium Chloride Carbon Dioxide Anion Gap BUN Creatinine Estim Creat Clear Calc Est GFR (MDRD) Af Amer Est GFR (MDRD) Non-Af BUN/Creatinine Ratio Glucose Calcium Crossmatch See Detail See Detail 06/26/18 06:10 WBC RBC Hgb Hct MCV MCH MCHC RDW RDW Differential Plt Count MPV Sodium 142 Potassium 3.6 Chloride 98 Carbon Dioxide 41.0 H Anion Gap 3 L BUN 17 Creatinine 0.93 Estim Creat Clear Calc 50.25 Est GFR (MDRD) Af Amer 81 Est GFR (MDRD) Non-Af 67 BUN/Creatinine Ratio 18.3 Glucose 121 H Calcium 8.1 L Crossmatch POC Glucose 06/26/18 06/25/18 06/25/18 06:55 22:09 16:31 POC Glucose 122 H 108 128 H 06/25/18 11:18 POC Glucose 103 Discharge Activity: Return to Normal Activity Home Medications: Medications to take at Discharge Albuterol Sulfate [Ventolin Hfa] 2 puff INHALATION Q4H PRN PRN 01/08/17 Pantoprazole Sodium [Protonix] 40 mg PO DAILY 02/13/17 Dicyclomine HCl [Bentyl] 20 mg PO Q6H PRN PRN 03/10/17 Multivitamin [Daily Multiple Vitamin] 1 each PO DAILY 08/05/17 AcetaAZOLAMIDE [Diamox] 250 mg PO TID #90 tab 10/21/17 Menthol/Lanolin/Calamine/Znox [Calmoseptine Ointment] 1 applic TOPICAL TID tube 10/21/17 Nystatin Powder [Mycostatin Powder] 1 applic TOPICAL 0600,2200 #1 bottle 10/21/17 ALPRAZolam [Xanax] 0.5 mg PO Q6H PRN PRN #30 tab 01/12/18 AcetaAZOLAMIDE [Diamox] 125 mg PO TID tablet 01/12/18 Acetaminophen [Tylenol] 1,000 mg PO Q8H PRN tablet 01/12/18 Cyclobenzaprine [Flexeril] 10 mg PO TID PRN PRN #90 tab 01/12/18 Diltiazem CD [Cardizem CD] 120 mg PO BID capsule 01/12/18 Gabapentin [Neurontin] 300 mg PO HS #30 cap 01/12/18 Iron Polysaccharide Complex [Ferrex 150] 150 mg PO BID #60 cap 01/12/18 Metoprolol(XL)Succ [Toprol Xl (Beta Vikki)] 25 mg PO DAILY tablet 01/12/18 Nutritional Supplement [Saul - ORANGE FLAVOR] 1 packet PO BIDCM packet 01/12/18 Glimepiride [Amaryl] 2 mg PO DAILY 06/24/18 Furosemide [Lasix] 40 mg PO BIDLX #60 tab 06/26/18 Iron Poly/Vit C [Niferex-150] 150 mg PO DAILYCM #30 capsule 06/26/18 Following Prescrptions Were Given to Patient: Iron Poly/Vit C [Niferex-150] 150 mg PO DAILYCM #30 capsule Primary Care Physician: Merrick Mace MD [Primary Care Provider] - Please follow up with your Primary Care Physician in: in 5-7 days Medical Necessity - Tobacco Use Smoking Status: Former smoker Tobacco Use: Non-smoker Meaningful Use Info Meaningful Use Diagnoses (Choose all that apply): CHF - CHF MARBIN/ARB ordered at discharge?: No Reason MARBIN/ARB not ordered?: Worsening renal dysfunctn Documented LVEF (%): 65 Code Visit Inpatient E&M: 20026 Disch Hosp
--- NOTE | 2018-06-26 10:17 | CASEMGMT ---
This RN CM to room to speak with pt regarding discharge plan and initially pt agreed to [facility]HC but then declined at this time. When this RN CM asked why she did not want C at this time, pt states 'We have bed bugs at my house and until we get that taken care of, I don't want anybody coming in.' Pt states that she is not sure how well she is going to be able to walk but this RN CM advised her that she has refused therapy since admission and pt states that her legs have been hurting, which is why she refused but she states that they are hurting less today. Pt states also does not normally walk that much at home anyway. This RN CM will try to have therapists see pt prior to discharge. Eva, PCU discharge door operator, aware of need for therapy eval also. Pt states no further questions/concerns/needs at this time. Deep RN CM
[2018-06-26] MEDS: dilTIAZem CD 120 MG Capsule PO ×2 (11:09→22:03)
[2018-06-26] MEDS: Metoprolol(XL)Succ 25 MG Tablet PO (11:09)
[2018-06-26] MEDS: Lisinopril 5 MG Tablet PO (11:09)
[2018-06-26] MEDS: Pantoprazole Sodium 40 MG Tablet PO (11:10)
[2018-06-26] MEDS: Iron Polysaccharide Complex 150 MG CAPSULE PO ×2 (11:10→22:03)
--- NOTE | 2018-06-26 12:36 | PCM.PN.HOSP ---
Patient Problems: Active and Suspected Problems CHF exacerbation (Acute) Anemia (Acute) Subjective: Plan was for patient to have been discharged home this a.m. however with patient inability to ambulate physical therapy recommended for patient to be transferred to a detention facility for rehab prior to going home. Her discharge was subsequently canceled. Objective: GENERAL: cooperative HEENT: Atraumatic; moist oral mucosa EYES; Anicteric, Normal Conjunctiva NECK; supple, normal thyroid, no distended JVD. RESPIRATORY: Diminished to auscultation bilaterally, CARDIOVASCULAR: Regular S1 S2, no audible murmurs GI: soft, non-tender, normoactive bowel sounds, : No Renal angle tenderness; EXTREMITIES: Bilateral venous stasis NEURO: Awake; no lateralizing signs. SKIN: No Rash PSYCH; Normal affect Vitals/I&O's: Vital Signs Temp Pulse Resp BP Pulse Ox 97.8 F 79 15 131/62 H 96 06/26/18 11:06 06/26/18 12:04 06/26/18 11:06 06/26/18 11:09 06/26/18 11:06 Oxygen Flow Rate (L/min) 2 Oxygen Delivery Method Nasal Cannula Weight: 175.4 kg Body Mass Index (BMI) 79.7 Intake and Output for Last 24 Hours 06/24/18 06/25/18 06/26/18 23:59 23:59 23:59 Intake Total 1552 / 1552 1543 / 1543 60 / 60 Output Total 3200 / 3200 9975 / 9975 2600 / 2600 Balance -1648 / -1648 -8432 / -8432 -2540 / -2540 Microbiology Past 72 Hours 06/24/18 05:10 Mucosa - Nose Respiratory Panel (PCR) - Final 06/24/18 01:45 Stool Stool Occult Blood (JENNIFER) - Final Laboratory Results 06/24/18 02:43: Crossmatch See Detail 06/25/18 16:31: POC Glucose 128 H 06/25/18 22:09: POC Glucose 108 06/26/18 06:10: WBC 8.5, RBC 3.46 L, Hgb 8.5 L, Hct 31.7 L, MCV 91.6, MCH 24.6 L, MCHC 26.8 L, RDW 18.6 H, RDW Differential 61.9 H, Plt Count 214, MPV 9.2 06/26/18 06:10: Sodium 142, Potassium 3.6, Chloride 98, Carbon Dioxide 41.0 H, Anion Gap 3 L, BUN 17, Creatinine 0.93, Estim Creat Clear Calc 50.25, Est GFR (MDRD) Af Amer 81, Est GFR (MDRD) Non-Af 67, BUN/Creatinine Ratio 18.3, Glucose 121 H, Calcium 8.1 L 06/26/18 06:55: POC Glucose 122 H Current Medications Acetaminophen (Tylenol) 1,000 mg PO Q8H PRN PRN PRN Reason: mild pain Acetazolamide (Diamox) 125 mg PO TID [facility] Last Admin: 06/26/18 05:18 Dose: 125 mg Al Hydroxide/Mg Hydroxide (Mylanta Ii) 30 ml PO Q6H PRN PRN PRN Reason: Gastric burning Albuterol Sulfate (Ventolin Aerosols) 2.5 mg INHALATION Q2H PRN PRN PRN Reason: dyspnea, wheezing Albuterol/Ipratropium (Duoneb) 3 ml INHALATION Q6HWA.RT [facility] Last Admin: 06/26/18 07:19 Dose: Not Given Alprazolam (Xanax) 0.5 mg PO Q6H PRN PRN PRN Reason: ANXIETY Aspirin (Aspirin, Baby) 81 mg PO DAILY@0800 [facility] Last Admin: 06/26/18 08:36 Dose: 81 mg Atorvastatin Calcium (Lipitor) 80 mg PO QHS [facility] Last Admin: 06/25/18 22:32 Dose: 80 mg Calamine/Phenol (Calmoseptine Ointment) 1 applic TOPICAL TID [facility]; Protocol Last Admin: 06/26/18 05:17 Dose: 1 applicatio Cyclobenzaprine HCl (Flexeril) 10 mg PO TID PRN PRN PRN Reason: muscle spasms Last Admin: 06/24/18 23:03 Dose: 10 mg Dicyclomine HCl (Bentyl) 20 mg PO Q6H PRN PRN PRN Reason: abd pain Diltiazem HCl (Cardizem Cd) 120 mg PO BID [facility] Last Admin: 06/26/18 11:09 Dose: 120 mg Enoxaparin Sodium (Lovenox) 40 mg SC DAILY@1000 [facility] Last Admin: 06/26/18 11:02 Dose: Not Given Furosemide (Lasix) 40 mg IV Q8 [facility] Last Admin: 06/26/18 05:18 Dose: 40 mg Gabapentin (Neurontin) 300 mg PO HS [facility] Last Admin: 06/25/18 22:33 Dose: 300 mg Insulin Human Lispro (Humalog Kwikpen (Bkc)) 0 unit SC ACHS [facility]; Protocol Last Admin: 06/26/18 07:15 Dose: Not Given Lisinopril (Zestril) 5 mg PO DAILY [facility] Last Admin: 06/26/18 11:09 Dose: 5 mg Magnesium Hydroxide (Milk Of Magnesia) 30 ml PO DAILY PRN PRN Reason: Constipation Metoprolol Succinate (Toprol Xl (Beta Vikki)) 25 mg PO DAILY [facility] Last Admin: 06/26/18 11:09 Dose: 25 mg Morphine Sulfate () 2 - 4 mg IV Q3H PRN PRN PRN Reason: Severe Pain (pain scale 6-10) Morphine Sulfate () 1 - 2 mg IV Q4H PRN PRN PRN Reason: Moderate Pain (pain scale 4-5) Morphine Sulfate () 2 - 4 mg IV Q3H PRN PRN PRN Reason: Severe Pain (pain scale 6-10) Multivit[facility] ([facility]amin) [facility] Last Admin: 06/26/18 08:36 Dose: 1 tablet Nutritional Formula (Saul - [place] Flavor) [facility] Last Admin: 06/26/18 08:33 Dose: Not Given Nystatin (Mycostatin Powder) 1 applic TOPICAL 0600,2200 [facility]; Protocol Last Admin: 06/26/18 05:17 Dose: 1 applicatio Oxycodone HCl (Oxyir) 5 mg PO Q4H PRN PRN PRN Reason: Moderate Pain (pain scale 4-5) Last Admin: 06/26/18 08:36 Dose: 5 mg Pantoprazole Sodium (Protonix) 40 mg PO DAILY [facility] Last Admin: 06/26/18 11:10 Dose: 40 mg Polysaccharide Iron Complex (Ferrex 150) 150 mg PO BID [facility] Last Admin: 06/26/18 11:10 Dose: 150 mg Sodium Chloride () 5 - 15 ml IV UD PRN PRN Reason: SALINE FLUSH Last Admin: 06/26/18 05:18 Dose: 10 ml Medical Necessity - Tobacco Use Smoking Status: Former smoker Tobacco Use: Non-smoker Assessment/Plan All Active Problems Yeast dermatitis (Acute) CHF exacerbation (Acute) History of necrotizing fasciitis (Acute) Abscess of left thigh (Acute) CAP (community acquired pneumonia) (Acute) Lower GI bleed (Acute) Acute and chronic respiratory failure with hypoxia (Acute) Acute on chronic diastolic heart failure (Acute) Acute bronchitis with asthma with acute exacerbation (Acute) Shortness of breath (Acute) Acute on chronic diastolic heart failure (Acute) Acute bronchitis (Acute) Atrial fibrillation with RVR (Acute) Otitis externa (Acute) Metabolic alkalosis (Acute) Blood in stool (Acute) Anemia (Acute) Abdominal pain (Resolved) Patient is a 53-year-old lady morbidly obese BMI of 80 who presented with progressive shortness of breath cough as well as bilateral lower extremity edema and assessment of acute on congestive heart failure made admitted to monitored bed for further management 1. Acute on chronic diastolic congestive heart failure. Patient has been admitted to telemetry bed, placed on fluid restriction supplemental oxygen in addition to Lasix repeat echo ordered. Echo demonstrated EF of 65% 2. Anemia secondary to anemia of chronic disorder do suspect she has anemia contributing to her heart failure. Being symptomatic and order was given for patient to be transfused with 1 unit PRBC additional unit was transfused on 06/25/2018 3. Chronic respiratory failure secondary to obesity hypoventilation syndrome patient is on baseline oxygen 4 L at night 3. Diabetes mellitus type 2 continued with home regimen in addition to Accu-Cheks before meals and at bedtime with sliding scale coverage 5. Mild intermittent asthma currently stable albuterol as needed 6. Obstructive sleep apnea 7. Nonobstructing left renal calculus 8. Degenerative joint disease 9. Fatty liver do suspect nonalcoholic fatty liver disease from patient's morbid obesity as well as diabetes mellitus type 2 10. Chronic bilateral lower extremity lymphedema from venous insufficiency 11. Onychomycosis 12. Morbid obesity with BMI of 79 lifestyle modification including weight loss advised to discuss with patient to follow-up with PCP for referral for consideration for gastric bypass 13. Physical debility: Patient has been seen and assessed by PT recommendation is for patient to be transferred to detention facility on discharge. Consult subsequently placed to case management with plans for patient to be discharged to correction once insurance precertification is obtained. 14. DVT prophylaxis: Lovenox Code Visit Inpatient E&M: 09850 Subs Hosp L2
[2018-06-26 12:50] LABS: Bedside Glucose 159 mg/dL (70-110)
--- NOTE | 2018-06-26 13:18 | CASEMGMT ---
Therapy is recommending SNF for patient. Patient is agreeable. She wanted TCU, but they are full. She said she would go to [facility] or [place]. KHUSHBOO called Nenita in CM office and she will fax referral to [facility] to start. Patient will require insurance authorization. Lilian COSTA
--- NOTE | 2018-06-26 13:31 | CASEMGMT ---
Per KHUSHBOO Quintana, referral needs sent to [facility]. Call placed to sydnee Tolentino. Voicemail left informing her that referral would be faxed. Fax confirmation received. Nenita Desai LPN Clinical Support
--- NOTE | 2018-06-26 14:52 | CASEMGMT ---
Spoke with Randa at [facility]. Facility is able to accept patient, Randa will start pre-cert. Informed Randa that it appears patient is medically stable for discharge as patient was going to be discharged home today but the discharge was canceled due to inability to ambulate with PT. PT recommending SNF placement at discharge. Gave Randa phone number to PCU desk and weekend SW in case pre-cert is obtained over the weekend. SW notified of same. Nenita Desai LPN Clinical Support
--- NOTE | 2018-06-26 16:14 | CASEMGMT ---
KHUSHBOO let patient know [facility] can accept her. KHUSHBOO told her we will have to wait on insurance to approve. SW offered to call family and patient said her family already knows. Plan: [facility] pending insurance authorization. Lilian COSTA
[2018-06-26 17:01] LABS: Bedside Glucose 129 mg/dL (70-110)
[2018-06-26] MEDS: Atorvastatin Calcium 80 MG Tablet PO (22:03)
[2018-06-26] MEDS: Gabapentin 300 MG Capsule PO (22:03)
[2018-06-26 22:51] LABS: Bedside Glucose 149 mg/dL (70-110)
[2018-06-27] VITALS (13 sets, daily range): BP systolic 95–129; BP diastolic 48–60; PULSE 68–78; RESP 16–18; TEMP 36.2–37.2; O2SAT 97–100
[2018-06-27] MEDS: Nystatin Powder 15gm Bottle 1 APPLIC TOPICAL ×2 (05:41→21:51)
[2018-06-27] MEDS: Furosemide 40 MG/4 ML Vial IV ×3 (05:42→21:53)
[2018-06-27] MEDS: 0.9% NaCl Peripheral Flush Adult/Peds IV ×5 (05:42→21:54)
[2018-06-27] MEDS: Menthol/Lanolin/Calamine/Znox 113 GM Tube 1 APPLIC TOPICAL ×3 (05:42→21:51)
[2018-06-27] MEDS: AcetaZOLAMIDE 250 MG Tablet 125 MG PO ×3 (05:42→21:52)
[2018-06-27 06:45] LABS: Anion Gap 7 (5-15); BUN 18 mg/dL (7-18); Calcium,Total 7.6 mg/dL (8.5-10.1); Chloride 98 mmol/L (98-107); Creatinine, Serum 0.95 mg/dL (0.55-1.02); EST Glomerular Filtration Rate 66 mL/min (>60); Est Glom Filt Rate - Afr Amer 79 mL/min (>60); Estimated Creatinine Clearance 49.19 ml/min; Glucose 93 mg/dL (74-106); Potassium 4.1 mmol/L (3.5-5.1); Sodium Level 137 mmol/L (136-145)
[2018-06-27 06:55] LABS: Bedside Glucose 109 mg/dL (70-110)
[2018-06-27] MEDS: Aspirin 81 MG TAB.CHEW PO (09:46)
[2018-06-27] MEDS: Multivitamins,Therapeutic Tablet 1 TABLET PO (09:46)
[2018-06-27] MEDS: Iron Polysaccharide Complex 150 MG CAPSULE PO ×2 (09:47→21:53)
[2018-06-27] MEDS: Lisinopril 5 MG Tablet PO (09:47)
[2018-06-27] MEDS: Pantoprazole Sodium 40 MG Tablet PO (09:47)
[2018-06-27] MEDS: Metoprolol(XL)Succ 25 MG Tablet PO (09:47)
[2018-06-27] MEDS: dilTIAZem CD 120 MG Capsule PO ×2 (09:47→21:52)
[2018-06-27 11:55] LABS: Bedside Glucose 108 mg/dL (70-110)
--- NOTE | 2018-06-27 12:27 | PN_ITS ---
Patient Problems: Active and Suspected Problems CHF exacerbation (Acute) Anemia (Acute) Subjective: No change in patient clinical condition. Awaiting insurance precertification [facility]. Objective: GENERAL: cooperative HEENT: Atraumatic; moist oral mucosa EYES; Anicteric, Normal Conjunctiva NECK; supple, normal thyroid, no distended JVD. RESPIRATORY: Diminished to auscultation bilaterally, CARDIOVASCULAR: Regular S1 S2, no audible murmurs GI: soft, non-tender, normoactive bowel sounds, : No Renal angle tenderness; EXTREMITIES: Bilateral venous stasis NEURO: Awake; no lateralizing signs. SKIN: No Rash PSYCH; Normal affect Vitals/I&O's: Vital Signs Temp Pulse Resp BP Pulse Ox 98.6 F 108 H 17 105/49 L 100 06/27/18 09:34 06/27/18 11:03 06/27/18 09:34 06/27/18 09:34 06/27/18 09:34 Oxygen Flow Rate (L/min) 3.5 Oxygen Delivery Method Nasal Cannula Weight: 171.4 kg Body Mass Index (BMI) 79.7 Intake and Output for Last 24 Hours 06/25/18 06/26/18 06/27/18 23:59 23:59 23:59 Intake Total 1543 / 1543 1060 / 1060 60 / 60 Output Total 9975 / 9975 4850 / 4850 Balance -8432 / -8432 -3790 / -3790 60 / 60 Microbiology Past 72 Hours 06/24/18 05:10 Mucosa - Nose Respiratory Panel (PCR) - Final Laboratory Results 06/26/18 12:45: POC Glucose 159 H 06/26/18 16:47: POC Glucose 129 H 06/26/18 21:57: POC Glucose 149 H 06/27/18 05:25: Sodium 137, Potassium 4.1, Chloride 98, Carbon Dioxide 32.0, Anion Gap 7, BUN 18, Creatinine 0.95, Estim Creat Clear Calc 49.19, Est GFR (MDRD) Af Amer 79, Est GFR (MDRD) Non-Af 66, BUN/Creatinine Ratio 19.0, Glucose 93, Calcium 7.6 L 06/27/18 06:47: POC Glucose 109 06/27/18 11:49: POC Glucose 108 Current Medications Acetaminophen (Tylenol) 1,000 mg PO Q8H PRN PRN PRN Reason: mild pain Acetazolamide (Diamox) 125 mg PO TID [facility] Last Admin: 06/27/18 05:42 Dose: 125 mg Al Hydroxide/Mg Hydroxide (Mylanta Ii) 30 ml PO Q6H PRN PRN PRN Reason: Gastric burning Albuterol Sulfate (Ventolin Aerosols) 2.5 mg INHALATION Q2H PRN PRN PRN Reason: dyspnea, wheezing Albuterol/Ipratropium (Duoneb) 3 ml INHALATION Q6HWA.RT [facility] Last Admin: 06/27/18 07:20 Dose: Not Given Alprazolam (Xanax) 0.5 mg PO Q6H PRN PRN PRN Reason: ANXIETY Aspirin (Aspirin, Baby) 81 mg PO DAILY@0800 [facility] Last Admin: 06/27/18 09:46 Dose: 81 mg Atorvastatin Calcium (Lipitor) 80 mg PO QHS [facility] Last Admin: 06/26/18 22:03 Dose: 80 mg Calamine/Phenol (Calmoseptine Ointment) 1 applic TOPICAL TID [facility]; Protocol Last Admin: 06/27/18 05:42 Dose: 1 applicatio Cyclobenzaprine HCl (Flexeril) 10 mg PO TID PRN PRN PRN Reason: muscle spasms Last Admin: 06/26/18 22:03 Dose: 10 mg Dicyclomine HCl (Bentyl) 20 mg PO Q6H PRN PRN PRN Reason: abd pain Diltiazem HCl (Cardizem Cd) 120 mg PO BID [facility] Last Admin: 06/27/18 09:47 Dose: 120 mg Enoxaparin Sodium (Lovenox) 40 mg SC DAILY@1000 [facility] Last Admin: 06/27/18 09:47 Dose: Not Given Furosemide (Lasix) 40 mg IV Q8 [facility] Last Admin: 06/27/18 05:42 Dose: 40 mg Gabapentin (Neurontin) 300 mg PO HS [facility] Last Admin: 06/26/18 22:03 Dose: 300 mg Insulin Human Lispro (Humalog Kwikpen (Bkc)) 0 unit SC [facility]; Protocol Last Admin: 06/27/18 11:51 Dose: Not Given Lisinopril (Zestril) 5 mg PO DAILY [facility] Last Admin: 06/27/18 09:47 Dose: 5 mg Magnesium Hydroxide (Milk Of Magnesia) 30 ml PO DAILY PRN PRN Reason: Constipation Metoprolol Succinate (Toprol Xl (Beta Vikki)) 25 mg PO DAILY [facility] Last Admin: 06/27/18 09:47 Dose: 25 mg Morphine Sulfate () 2 - 4 mg IV Q3H PRN PRN PRN Reason: Severe Pain (pain scale 6-10) Morphine Sulfate () 1 - 2 mg IV Q4H PRN PRN PRN Reason: Moderate Pain (pain scale 4-5) Morphine Sulfate () 2 - 4 mg IV Q3H PRN PRN PRN Reason: Severe Pain (pain scale 6-10) [facility]it[facility] ([facility]) [facility] Admin: 06/27/18 09:46 Dose: 1 tablet Nutritional Formula (Saul - [place] Flavor) [facility] Last Admin: 06/27/18 09:46 Dose: 1 packet Nystatin (Mycostatin Powder) 1 applic TOPICAL 0600,2200 [facility]; Protocol Last Admin: 06/27/18 05:41 Dose: 1 applicatio Oxycodone HCl (Oxyir) 5 mg PO Q4H PRN PRN PRN Reason: Moderate Pain (pain scale 4-5) Last Admin: 06/26/18 14:21 Dose: 5 mg Pantoprazole Sodium (Protonix) 40 mg PO DAILY [facility] Last Admin: 06/27/18 09:47 Dose: 40 mg Polysaccharide Iron Complex (Ferrex 150) 150 mg PO BID [facility] Last Admin: 06/27/18 09:47 Dose: 150 mg Sodium Chloride () 5 - 15 ml IV UD PRN PRN Reason: SALINE FLUSH Last Admin: 06/27/18 05:43 Dose: 5 ml Medical Necessity - Tobacco Use Smoking Status: Former smoker Tobacco Use: Non-smoker Assessment/Plan All Active Problems Yeast dermatitis (Acute) CHF exacerbation (Acute) History of necrotizing fasciitis (Acute) Abscess of left thigh (Acute) CAP (community acquired pneumonia) (Acute) Lower GI bleed (Acute) Acute and chronic respiratory failure with hypoxia (Acute) Acute on chronic diastolic heart failure (Acute) Acute bronchitis with asthma with acute exacerbation (Acute) Shortness of breath (Acute) Acute on chronic diastolic heart failure (Acute) Acute bronchitis (Acute) Atrial fibrillation with RVR (Acute) Otitis externa (Acute) Metabolic alkalosis (Acute) Blood in stool (Acute) Anemia (Acute) Abdominal pain (Resolved) Patient is a 53-year-old lady morbidly obese BMI of 80 who presented with progressive shortness of breath cough as well as bilateral lower extremity edema and assessment of acute on congestive heart failure made admitted to monitored bed for further management 1. Acute on chronic diastolic congestive heart failure. Patient has been admitted to telemetry bed, placed on fluid restriction supplemental oxygen in addition to Lasix repeat echo ordered. Echo demonstrated EF of 65% 2. Anemia secondary to anemia of chronic disorder do suspect she has anemia contributing to her heart failure. Being symptomatic and order was given for patient to be transfused with 1 unit PRBC additional unit was transfused on 06/25/2018. 3. Chronic respiratory failure secondary to obesity hypoventilation syndrome patient is on baseline oxygen 4 L at night 3. Diabetes mellitus type 2 continued with home regimen in addition to Accu- Cheks before meals and at bedtime with sliding scale coverage 5. Mild intermittent asthma currently stable albuterol as needed 6. Obstructive sleep apnea 7. Nonobstructing left renal calculus 8. Degenerative joint disease 9. Fatty liver do suspect nonalcoholic fatty liver disease from patient's morbid obesity as well as diabetes mellitus type 2 10. Chronic bilateral lower extremity lymphedema from venous insufficiency 11. Onychomycosis 12. Morbid obesity with BMI of 79 lifestyle modification including weight loss advised to discuss with patient to follow-up with PCP for referral for consideration for gastric bypass 13. Physical debility: Patient has been seen and assessed by PT recommendation is for [facility]. Consult subsequently placed to case management with plans for patient to be discharged to [facility] once insurance precertification is obtained. 14. DVT prophylaxis: Lovenox Code Visit Inpatient E&M: 11316 Subs Hosp L2
--- NOTE | 2018-06-27 15:05 | NURSING ---
Patient refusing Lovenox. Offered throughout the day to turn and reposition in bed or to get up to chair. Patient refusing same. Will only allow staff to turn her on her side for bedpan then wants to return to her back. 1:1 with patient regarding skin breakdown and increased risk for blood clot due to immobility and refusal of Lovenox discussed without effect.
[2018-06-27] MEDS: Enoxaparin 40 MG/0.4 ML Syringe SC (16:07)
[2018-06-27] MEDS: oxyCODONE 5 MG Tablet PO (16:15)
[2018-06-27 16:16] LABS: Bedside Glucose 149 mg/dL (70-110)
[2018-06-27] MEDS: Acetaminophen 500 MG Tablet 1000 MG PO (20:35)
[2018-06-27] MEDS: Atorvastatin Calcium 80 MG Tablet PO (21:53)
[2018-06-27] MEDS: Gabapentin 300 MG Capsule PO (21:53)
[2018-06-27 22:10] LABS: Bedside Glucose 123 mg/dL (70-110)
[2018-06-28] VITALS (13 sets, daily range): BP systolic 115–134; BP diastolic 48–64; PULSE 66–78; RESP 14–18; TEMP 36.3–37.3; O2SAT 94–97
[2018-06-28 06:35] LABS: Hematocrit 30.1 % (37-47); Mean Corp Hgb Conc 26.6 g/gl (32-36); Mean Corpuscular Hgb 25.2 pg (27.0-32.0); Mean Platelet Vol. 9.2 fl (6.2-12.0); Platelet Count 221 K/mm3 (150-450); RBC Distribution Width CV 18.7 % (11.6-14.6); RBC Distribution Width SD 60.1 fl (35.1-43.9); Red Blood Count 3.17 M/mm3 (4.2-5.4)
[2018-06-28 06:38] LABS: Scan Indicated on CBC? Y/N NO
[2018-06-28] MEDS: 0.9% NaCl Peripheral Flush Adult/Peds IV ×3 (06:55→21:12)
[2018-06-28] MEDS: Nystatin Powder 15gm Bottle 1 APPLIC TOPICAL ×2 (06:55→21:08)
[2018-06-28] MEDS: AcetaZOLAMIDE 250 MG Tablet 125 MG PO ×3 (06:55→21:09)
[2018-06-28] MEDS: Furosemide 40 MG/4 ML Vial IV ×3 (06:55→21:10)
[2018-06-28] MEDS: Menthol/Lanolin/Calamine/Znox 113 GM Tube 1 APPLIC TOPICAL ×3 (06:55→21:08)
[2018-06-28 07:00] LABS: Bedside Glucose 117 mg/dL (70-110)
[2018-06-28] MEDS: Multivitamins,Therapeutic Tablet 1 TABLET PO (08:11)
[2018-06-28] MEDS: Aspirin 81 MG TAB.CHEW PO (08:11)
[2018-06-28] MEDS: Enoxaparin 40 MG/0.4 ML Syringe SC (09:12)
[2018-06-28] MEDS: Pantoprazole Sodium 40 MG Tablet PO (09:12)
[2018-06-28] MEDS: Metoprolol(XL)Succ 25 MG Tablet PO (09:12)
[2018-06-28] MEDS: Iron Polysaccharide Complex 150 MG CAPSULE PO ×2 (09:12→21:09)
[2018-06-28] MEDS: dilTIAZem CD 120 MG Capsule PO ×2 (09:12→21:09)
[2018-06-28] MEDS: Lisinopril 5 MG Tablet PO (09:13)
--- NOTE | 2018-06-28 09:25 | PCM.PN.HOSP ---
Patient Problems: Active and Suspected Problems CHF exacerbation (Acute) Anemia (Acute) Subjective: Patient had refused Lovenox shot the day prior however she agreed to take it this a.m. Hemoglobin dropped to 8.0 no plans for blood transfusion at this point. Awaiting insurance precertification prior to patient being transferred to a correction facility Objective: GENERAL: cooperative HEENT: Atraumatic; moist oral mucosa EYES; Anicteric, Normal Conjunctiva NECK; supple, normal thyroid, no distended JVD. RESPIRATORY: Diminished to auscultation bilaterally, CARDIOVASCULAR: Regular S1 S2, no audible murmurs GI: soft, non-tender, normoactive bowel sounds, : No Renal angle tenderness; EXTREMITIES: Bilateral venous stasis NEURO: Awake; no lateralizing signs. SKIN: No Rash PSYCH; Normal affect Vitals/I&O's: Vital Signs Temp Pulse Resp BP Pulse Ox 97.4 F L 78 18 134/64 H 96 06/28/18 06:50 06/28/18 09:12 06/28/18 06:50 06/28/18 06:50 06/28/18 07:53 Oxygen Flow Rate (L/min) 3 Oxygen Delivery Method Nasal Cannula Weight: 169.8 kg Body Mass Index (BMI) 79.7 Intake and Output for Last 24 Hours 06/26/18 06/27/18 06/28/18 23:59 23:59 23:59 Intake Total 1060 / 1060 610 / 610 60 / 60 Output Total 4850 / 4850 3675 / 3675 500 / 500 Balance -3790 / -3790 -3065 / -3065 -440 / -440 Laboratory Results 06/27/18 11:49: POC Glucose 108 06/27/18 16:04: POC Glucose 149 H 06/27/18 21:47: POC Glucose 123 H 06/28/18 06:02: WBC 6.0, RBC 3.17 L, Hgb 8.0 L, Hct 30.1 L, MCV 95.0, MCH 25.2 L, MCHC 26.6 L, RDW 18.7 H, RDW Differential 60.1 H, Plt Count 221, MPV 9.2 06/28/18 06:54: POC Glucose 117 H Current Medications Acetaminophen (Tylenol) 1,000 mg PO Q8H PRN PRN PRN Reason: mild pain Last Admin: 06/27/18 20:35 Dose: 1,000 mg Acetazolamide (Diamox) 125 mg PO TID [facility] Last Admin: 06/28/18 06:55 Dose: 125 mg Al Hydroxide/Mg Hydroxide (Mylanta Ii) 30 ml PO Q6H PRN PRN PRN Reason: Gastric burning Albuterol Sulfate (Ventolin Aerosols) 2.5 mg INHALATION Q2H PRN PRN PRN Reason: dyspnea, wheezing Albuterol/Ipratropium (Duoneb) 3 ml INHALATION Q6HWA.RT [facility] Last Admin: 06/28/18 06:58 Dose: Not Given Alprazolam (Xanax) 0.5 mg PO Q6H PRN PRN PRN Reason: ANXIETY Aspirin (Aspirin, Baby) 81 mg PO DAILY@0800 [facility] Last Admin: 06/28/18 08:11 Dose: 81 mg Atorvastatin Calcium (Lipitor) 80 mg PO QHS [facility] Last Admin: 06/27/18 21:53 Dose: 80 mg Calamine/Phenol (Calmoseptine Ointment) 1 applic TOPICAL TID [facility]; Protocol Last Admin: 06/28/18 06:55 Dose: 1 applicatio Cyclobenzaprine HCl (Flexeril) 10 mg PO TID PRN PRN PRN Reason: muscle spasms Last Admin: 06/26/18 22:03 Dose: 10 mg Dicyclomine HCl (Bentyl) 20 mg PO Q6H PRN PRN PRN Reason: abd pain Diltiazem HCl (Cardizem Cd) 120 mg PO BID [facility] Last Admin: 06/28/18 09:12 Dose: 120 mg Enoxaparin Sodium (Lovenox) 40 mg SC DAILY@1000 [facility] Last Admin: 06/28/18 09:12 Dose: 40 mg Furosemide (Lasix) 40 mg IV Q8 [facility] Last Admin: 06/28/18 06:55 Dose: 40 mg Gabapentin (Neurontin) 300 mg PO HS [facility] Last Admin: 06/27/18 21:53 Dose: 300 mg Insulin Human Lispro (Humalog Kwikpen (Bkc)) 0 unit SC [facility]; Protocol Last Admin: 06/28/18 08:09 Dose: Not Given Lisinopril (Zestril) 5 mg PO DAILY [facility] Last Admin: 06/28/18 09:13 Dose: 5 mg Magnesium Hydroxide (Milk Of Magnesia) 30 ml PO DAILY PRN PRN Reason: Constipation Metoprolol Succinate (Toprol Xl (Beta Vikki)) 25 mg PO DAILY [facility] Last Admin: 06/28/18 09:12 Dose: 25 mg Morphine Sulfate () 2 - 4 mg IV Q3H PRN PRN PRN Reason: Severe Pain (pain scale 6-10) Morphine Sulfate () 1 - 2 mg IV Q4H PRN PRN PRN Reason: Moderate Pain (pain scale 4-5) Morphine Sulfate () 2 - 4 mg IV Q3H PRN PRN PRN Reason: Severe Pain (pain scale 6-10) Multivitamins (Multivitamin) [facility] Last Admin: 06/28/18 08:11 Dose: 1 tablet Nutritional Formula (Saul - [place] Flavor) [facility] Last Admin: 06/28/18 08:11 Dose: Not Given Nystatin (Mycostatin Powder) 1 applic TOPICAL 0600,2200 [facility]; Protocol Last Admin: 06/28/18 06:55 Dose: 1 applicatio Oxycodone HCl (Oxyir) 5 mg PO Q4H PRN PRN PRN Reason: Moderate Pain (pain scale 4-5) Last Admin: 06/27/18 16:15 Dose: 5 mg Pantoprazole Sodium (Protonix) 40 mg PO DAILY [facility] Last Admin: 06/28/18 09:12 Dose: 40 mg Polysaccharide Iron Complex (Ferrex 150) 150 mg PO BID [facility] Last Admin: 06/28/18 09:12 Dose: 150 mg Sodium Chloride () 5 - 15 ml IV UD PRN PRN Reason: SALINE FLUSH Last Admin: 06/28/18 06:55 Dose: 10 ml Medical Necessity - Tobacco Use Smoking Status: Former smoker Tobacco Use: Non-smoker Assessment/Plan All Active Problems Yeast dermatitis (Acute) CHF exacerbation (Acute) History of necrotizing fasciitis (Acute) Abscess of left thigh (Acute) CAP (community acquired pneumonia) (Acute) Lower GI bleed (Acute) Acute and chronic respiratory failure with hypoxia (Acute) Acute on chronic diastolic heart failure (Acute) Acute bronchitis with asthma with acute exacerbation (Acute) Shortness of breath (Acute) Acute on chronic diastolic heart failure (Acute) Acute bronchitis (Acute) Atrial fibrillation with RVR (Acute) Otitis externa (Acute) Metabolic alkalosis (Acute) Blood in stool (Acute) Anemia (Acute) Abdominal pain (Resolved) Patient is a 53-year-old lady morbidly obese BMI of 80 who presented with progressive shortness of breath cough as well as bilateral lower extremity edema and assessment of acute on congestive heart failure made admitted to monitored bed for further management 1. Acute on chronic diastolic congestive heart failure. Patient has been admitted to telemetry bed, placed on fluid restriction supplemental oxygen in addition to Lasix repeat echo ordered. Echo demonstrated EF of 65% patient weight has dropped from 194 kg on admission to 170kg as of 06/28/2018 2. Anemia secondary to anemia of chronic disorder do suspect she has anemia contributing to her heart failure. Being symptomatic and order was given for patient to be transfused with 1 unit PRBC additional unit was transfused on 06/25/2018. 3. Chronic respiratory failure secondary to obesity hypoventilation syndrome patient is on baseline oxygen 4 L at night 3. Diabetes mellitus type 2 continued with home regimen in addition to Accu-Cheks before meals and at bedtime with sliding scale coverage 5. Mild intermittent asthma currently stable albuterol as needed 6. Obstructive sleep apnea 7. Nonobstructing left renal calculus 8. Degenerative joint disease 9. Fatty liver do suspect nonalcoholic fatty liver disease from patient's morbid obesity as well as diabetes mellitus type 2 10. Chronic bilateral lower extremity lymphedema from venous insufficiency 11. Onychomycosis 12. Morbid obesity with BMI of 79 lifestyle modification including weight loss advised to discuss with patient to follow-up with PCP for referral for consideration for gastric bypass 13. Physical debility: Patient has been seen and assessed by PT recommendation is for patient to be [facility] to [facility]. Consult subsequently placed to case management with plans for patient to be discharged to group home once insurance precertification is obtained. 14. DVT prophylaxis: Lovenox Code Visit Inpatient E&M: 36559 Subs Hosp L2
[2018-06-28 11:40] LABS: Bedside Glucose 122 mg/dL (70-110)
[2018-06-28 16:41] LABS: Bedside Glucose 123 mg/dL (70-110)
[2018-06-28] MEDS: Gabapentin 300 MG Capsule PO (21:09)
[2018-06-28] MEDS: Atorvastatin Calcium 80 MG Tablet PO (21:09)
[2018-06-28] MEDS: oxyCODONE 5 MG Tablet PO (21:10)
[2018-06-28 21:45] LABS: Bedside Glucose 157 mg/dL (70-110)
[2018-06-29] VITALS (8 sets, daily range): BP systolic 113–124; BP diastolic 53–61; PULSE 60–76; RESP 16–18; TEMP 36.6–37.3; O2SAT 94–95
[2018-06-29] MEDS: Menthol/Lanolin/Calamine/Znox 113 GM Tube 1 APPLIC TOPICAL (06:16)
[2018-06-29] MEDS: AcetaZOLAMIDE 250 MG Tablet 125 MG PO (06:17)
[2018-06-29] MEDS: Nystatin Powder 15gm Bottle 1 APPLIC TOPICAL (06:17)
[2018-06-29] MEDS: Furosemide 40 MG/4 ML Vial IV (06:17)
[2018-06-29] MEDS: 0.9% NaCl Peripheral Flush Adult/Peds IV ×2 (06:21→06:22)
[2018-06-29 06:31] LABS: Hematocrit 31.4 % (37-47); Hemoglobin 8.3 g/dl (12.0-15.0); Mean Corp Hgb Conc 26.4 g/gl (32-36); Mean Corpuscular Hgb 25.3 pg (27.0-32.0); Mean Corpuscular Volume 95.7 fL (81-99); Platelet Count 239 K/mm3 (150-450); RBC Distribution Width CV 18.7 % (11.6-14.6); RBC Distribution Width SD 61.2 fl (35.1-43.9); Red Blood Count 3.28 M/mm3 (4.2-5.4); White Blood Count 6.4 K/mm3 (4.4-11.0)
[2018-06-29 06:43] LABS: Scan Indicated on CBC? Y/N NO
[2018-06-29 07:56] LABS: Bedside Glucose 116 mg/dL (70-110)
[2018-06-29] MEDS: Multivitamins,Therapeutic Tablet 1 TABLET PO (08:27)
[2018-06-29] MEDS: Aspirin 81 MG TAB.CHEW PO (08:27)
--- NOTE | 2018-06-29 10:21 | CASEMGMT ---
Received voicemail from Randa at [facility]. Pre-cert obtained from patient's insurance. KHUSHBOO Frazier notified. Nenita Desai LPN Clinical Support
[2018-06-29] MEDS: dilTIAZem CD 120 MG Capsule PO (10:46)
[2018-06-29] MEDS: Iron Polysaccharide Complex 150 MG CAPSULE PO (10:46)
[2018-06-29] MEDS: Enoxaparin 40 MG/0.4 ML Syringe SC (10:46)
[2018-06-29] MEDS: Metoprolol(XL)Succ 25 MG Tablet PO (10:47)
[2018-06-29] MEDS: Pantoprazole Sodium 40 MG Tablet PO (10:47)
[2018-06-29] MEDS: Lisinopril 5 MG Tablet PO (10:47)
--- NOTE | 2018-06-29 11:11 | NURSING ---
PT HAS MOIST ABDOMINAL FOLD-CLEANSED, DRIED WELL, NYSTATIN POWDER APPLIED TO FOLD AND PILLOW CASE PLACED IN ABDOMINAL FOLD
--- NOTE | 2018-06-29 11:41 | PCM.TXEXTCAR ---
- Diet 06/24/18 03:48 Diet: Cardiac: Calorie-Controlled Food consistency:: Regular Liquid Consistency:: Regular/Thin How many daily calories?: 1800 calorie - Wound(s) Left Inner Thigh Wound Type: Surgical Incision - Allergies/Procedures Done in Hospital Allergies/Adverse Reactions: Allergies latex Allergy (Verified 06/24/18 05:09) Rash levofloxacin [From Levaquin] Adverse Reaction (Verified 06/24/18 05:09) SPEEDS UP MY HEART AND SHUTS DOWN MY KIDNEYS mushrooms Allergy (Uncoded 08/05/17 21:19) Anaphylaxis - Type of Care/Length of Stay Estimated LOS: Convalescent Care Less Than 30 days Type of Care Needed: Skilled Rehab Potential: Good Prognosis: Good - Additional Orders/Day of Discharge Day of Discharge: 06/29/18 - Dietary and Speech Recommendations Dietitian Recommendations/Changes: Rec 1800 calorie controlled, cardiac, low sodium diet w/ fluid restriction as indicated. Will d/c Glucerna d/t wt gain and adequate PO intake. Rec d/c Saul BID d/t no open wounds. - Follow Up Care Primary Care Physician: Merrick Mace MD [Primary Care Provider] - Please follow up with your Primary Care Physician in: in 5-7 days Please Follow Up With: Merrick Mace MD
--- NOTE | 2018-06-29 11:42 | PCM.DC.SUM ---
Discharge Date and Diagnosis - Problem List Patient Problems: Active and Suspected Problems CHF exacerbation (Acute) Anemia (Acute) Date of Admission: 06/24/18 Date of Discharge: 06/29/18 - Primary Discharge Diagnosis Active and Suspected Problems CHF exacerbation (Acute) Anemia (Acute) - Secondary Discharge Diagnosis Chronic Problems Ulcer of left thigh (Chronic) PAF (paroxysmal atrial fibrillation) (Chronic) acute on chronic blood loss anemia (Chronic) Morbid obesity (Chronic) GERD (gastroesophageal reflux disease) (Chronic) Irritable bowel syndrome (Chronic) Overactive bladder (Chronic) Wide-complex tachycardia (Chronic) Chronic diastolic CHF (congestive heart failure) (Chronic) Type 2 diabetes mellitus (Chronic) HgbA1c 06/2016 6.5%. 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 Pulmonary vascular congestion. Interstitial prominence bilaterally. None Operations: None Procedures: 2-D Echocardiogram - Interpretation Summary The estimated ejection fraction is 65 %. Moderately dilated right ventricle. Trivial mitral valve insufficiency. Mild (1+) tricuspid valve insufficiency. Right ventricular systolic pressure estimated to be 56 mmHg. Moderate pulmonary hypertension. Stage 2 diastolic dysfunction. Compared to echo report dated 10/06/2017, LV function has remained the same, but RVSP has gone from 42 to 56 mm Hg. May be underestimated. The study was technically difficult. Summary of Care Provided: Per HPI: The patient is a 53 y/o F w/ PMHx: Chronic Normocytic Anemia (Hgb 9-10 baseline), Chronic Diastolic CHF, Persistent Hypokalemia treated w/ supplementation, Gout, OA, Diabetes mellitus type II, HTN, HLD, RICKI, Morbid obesity, Chronic BL LE Lymphedema, Chronic Hypoxic Respiratory Failure secondary to Hypoventilation Syndrome complicated by Chronic Asthma (4L NC chronically), PVD who presents to the [facility] ED on 06/24/18 with history of progressively worsening dyspnea, orthopnea, increased bilateral lower extremity edema on chronic bilateral lower extremity lymphedema in addition to ongoing cough productive of white phlegm times 1 week. Work-up in the ED included CBC with WBC 6.6, hemoglobin 7.4, platelet 190 without marked shift, BMP with carbon dioxide 33, troponin less than 0.015, BNP 244, urinalysis not marked appearing, chest x-ray with mild cardiomegaly, diffuse increased density throughout the mid and lower lung bailey bilaterally with increased vascular prominence with acute congestion, EKG with SR without acute evidence of ischemia. In the ED patient administered 40 mg IV Lasix x1. Type and cross 1 unit ordered per ED. Hospital Course: 1. Acute on chronic diastolic heart failure/chronic respiratory failure secondary to obesity hypoventilation syndrome/obstructive sleep apnea -53-year-old morbidly obese female who presented to the hospital on 06/24/2018 with worsening dyspnea, orthopnea, and increased bilateral lower extremity edema. She was diuresed well with IV Lasix 40 mg 3 times daily. On admission she was 408 pounds and on the day of discharge she is 358 pounds. She is down almost 23 L since when she came in. Her oxygen status is much better even though she is on 4 L nasal cannula at home at night. She is breathing much better and she feels much better. She will be discharged to a detention facility for rehab and continued oxygen therapy as well as diuresis. She did have an echo which demonstrated an EF of 65% and diastolic dysfunction. Also compared to September 2017 her right ventricular systolic pressure has increased from 42 to 56 mmHg. She will need to follow-up with cardiology as an outpatient once discharged from detention facility. 2. Anemia of chronic disease-on presentation to the ER she was below 8 and was transfused a unit because she was symptomatic. A fecal occult blood test was done which was negative. She was started on iron replacement therapy and her hemoglobin on the day of discharge was 8.3 which does appear to be baseline or close to baseline based on review of her previous hemoglobin levels over the last 6-6 months. 3. Her other medical diagnoses were evaluated and her home medications were continued were appropriate Patient Problems: Active and Suspected Problems CHF exacerbation (Acute) Anemia (Acute) - Physical Exam General: Alert, Oriented x3, Cooperative, No apparent distress HEENT: Atraumatic, EOMI, Normocephalic Oral: Moist Mucosa Neck: Supple, No JVD, Trachea Midline Lungs: Clear to auscultation, Normal air movement, No rhonchi, No wheeze, No rales, Diminished Cardiovascular: Regular rate, Regular Rhythm, Normal S1, Normal S2, No murmurs Abdomen: Soft, Non Tender, Non-Distended, No Hepato-splenomegaly, Obese Extremities: Capillary Refill Less than 3 Seconds, Edema, - - Legs are wrapped in Anders wrap, significant lymphedema Skin: - - Chronic venous stasis changes Neurological: Neuro grossly intact, Sensory exam intact to light touch and pain Psych/Mental Status: Normal Affect, Appropriate Vital Signs Temp Pulse Resp BP Pulse Ox 97.8 F 73 18 124/61 H 94 06/29/18 08:33 06/29/18 11:00 06/29/18 10:00 06/29/18 08:33 06/29/18 10:00 Oxygen Flow Rate (L/min) 2 Oxygen Delivery Method Nasal Cannula Weight: 358 lb 7.546 oz Body Mass Index (BMI) 79.7 Intake and Output for Last 24 Hours 06/27/18 06/28/18 06/29/18 23:59 23:59 23:59 Intake Total 610 / 610 840 / 840 Output Total 3675 / 3675 6100 / 6100 800 / 800 Balance -3065 / -3065 -5260 / -5260 -800 / -800 Laboratory Tests Past 24 Hrs 06/29/18 06:02 WBC 6.4 RBC 3.28 L Hgb 8.3 L Hct 31.4 L MCV 95.7 MCH 25.3 L MCHC 26.4 L RDW 18.7 H RDW Differential 61.2 H Plt Count 239 MPV 9.0 POC Glucose 06/29/18 06/28/18 06/28/18 06:59 21:04 16:31 POC Glucose 116 H 157 H 123 H Discharge Diet: - - Fluid restriction to 1500 cc Discharge Activity: Return to Normal Activity Home Medications: Medications to take at Discharge Albuterol Sulfate [Ventolin Hfa] 2 puff INHALATION Q4H PRN PRN 01/08/17 Pantoprazole Sodium [Protonix] 40 mg PO DAILY 02/13/17 Dicyclomine HCl [Bentyl] 20 mg PO Q6H PRN PRN 03/10/17 Multivitamin [Daily Multiple Vitamin] 1 each PO DAILY 08/05/17 AcetaAZOLAMIDE [Diamox] 250 mg PO TID #90 tab 10/21/17 Menthol/Lanolin/Calamine/Znox [Calmoseptine Ointment] 1 applic TOPICAL TID tube 10/21/17 Nystatin Powder [Mycostatin Powder] 1 applic TOPICAL 0600,2200 #1 bottle 10/21/17 ALPRAZolam [Xanax] 0.5 mg PO Q6H PRN PRN #30 tab 01/12/18 AcetaAZOLAMIDE [Diamox] 125 mg PO TID tablet 01/12/18 Acetaminophen [Tylenol] 1,000 mg PO Q8H PRN tablet 01/12/18 Cyclobenzaprine [Flexeril] 10 mg PO TID PRN PRN #90 tab 01/12/18 Diltiazem CD [Cardizem CD] 120 mg PO BID capsule 01/12/18 Gabapentin [Neurontin] 300 mg PO HS #30 cap 01/12/18 Iron Polysaccharide Complex [Ferrex 150] 150 mg PO BID #60 cap 01/12/18 Metoprolol(XL)Succ [Toprol Xl (Beta Vikki)] 25 mg PO DAILY tablet 01/12/18 Nutritional Supplement [Saul - ORANGE FLAVOR] 1 packet PO BIDCM packet 01/12/18 Glimepiride [Amaryl] 2 mg PO DAILY 06/24/18 Furosemide [Lasix] 40 mg PO BIDLX #60 tab 06/26/18 Iron Poly/Vit C [Niferex-150] 150 mg PO DAILYCM #30 capsule 06/26/18 Following Prescrptions Were Given to Patient: Iron Poly/Vit C [Niferex-150] 150 mg PO DAILYCM #30 capsule Primary Care Physician: Merrick Mace MD [Primary Care Provider] - Please follow up with your Primary Care Physician in: in 5-7 days Please Follow Up With: Merrick Mace MD Disposition: Residential facility Minutes spent on discharge:: 35 Patient Condition:: Stable Medical Necessity - Tobacco Use Smoking Status: Former smoker Tobacco Use: Non-smoker Meaningful Use Info Meaningful Use Diagnoses (Choose all that apply): CHF - CHF ANDERS/ARB ordered at discharge?: Yes Documented LVEF (%): 65 Code Visit Inpatient E&M: 34077 Disch Hosp
[2018-06-29 11:50] LABS: Bedside Glucose 165 mg/dL (70-110)
--- NOTE | 2018-06-29 12:29 | CM.ED ---
Social Work Note Convalescent completed and submitted in the [facility] for transfer to [facility] this date. PLAN: [facility] for continued rehabilitation. Nenita Rosado, G[employer] FITTER HELPER, [place]
--- NOTE | 2018-06-29 12:40 | CASEMGMT ---
Social Work: Spoke with physician. Patient ready for D/C today. TC to Randa at [facility]. Randa states pre cert has been obtained and patient can be admitted today. D/C orders and med list faxed to [facility]. TC to [facility]. Transportation scheduled by cot at 3:00pm. [facility] aware of patient weight and will plan accordingly. HENS completed. Copy in chart and copy sent with patient. Spoke with patient in room and left voice mail for patient's . Both aware that patient will be transported to [facility] by [facility] at 3:00pm. PLAN: Patient to be discharged to [facility] today for skilled level of care. HOLLIE Smith
--- NOTE | 2018-06-29 15:25 | NURSING ---
REPORT CALLED TO NURSE @ [facility]
--- NOTE | 2018-06-29 15:34 | PHA.DC.MR ---
Pharmacy Service has performed discharge medication reconciliation for this patient upon discharge to [facility]. The patient's discharge medication list was reviewed for discrepancies and discrepancies were resolved. Home Medications Albuterol Sulfate [Ventolin Hfa] 2 puff INHALATION Q4H PRN PRN 01/08/17 Pantoprazole Sodium [Protonix] 40 mg PO DAILY 02/13/17 Dicyclomine HCl [Bentyl] 20 mg PO Q6H PRN PRN 03/10/17 Multivitamin [Daily Multiple Vitamin] 1 each PO DAILY 08/05/17 Menthol/Lanolin/Calamine/Znox [Calmoseptine Ointment] 1 applic TOPICAL TID tube 10/21/17 Nystatin Powder [Mycostatin Powder] 1 applic TOPICAL 0600,2200 #1 bottle 10/21/17 ALPRAZolam [Xanax] 0.5 mg PO Q6H PRN PRN #30 tab 01/12/18 AcetaAZOLAMIDE [Diamox] 125 mg PO TID tablet 01/12/18 Acetaminophen [Tylenol] 1,000 mg PO Q8H PRN tablet 01/12/18 Cyclobenzaprine [Flexeril] 10 mg PO TID PRN PRN #90 tab 01/12/18 Diltiazem CD [Cardizem CD] 120 mg PO BID capsule 01/12/18 Gabapentin [Neurontin] 300 mg PO HS #30 cap 01/12/18 Metoprolol(XL)Succ [Toprol Xl (Beta Vikki)] 25 mg PO DAILY tablet 01/12/18 Nutritional Supplement [Saul - ORANGE FLAVOR] 1 packet PO BIDCM packet 01/12/18 Glimepiride [Amaryl] 2 mg PO DAILY 06/24/18 Furosemide [Lasix] 40 mg PO BIDLX #60 tab 06/26/18 Iron Poly/Vit C [Niferex-150] 150 mg PO DAILYCM #30 capsule 06/26/18
--- OUTSIDE RECORDS SUMMARY | 2018-08-28 20:42 | XMS RPT_ITS ---
:1965 Author Organization OHIP Support Name Relationship Address Phone HENRI MAYA Unavailable Unavailable + [place] [address] D Unavailable Unavailable Unavailable DANYELLE, LUCRECIA Unavailable [address] + [place] [address] CHERELLE ÁLVAREZANDRA Unavailable Unavailable + [place] [address] D Unavailable Unavailable Unavailable DANYELLE, LUCRECIA Unavailable [address] + [place] [address] CHERELLE ÁLVAREZANDRA Unavailable Unavailable + [place] [address] D Unavailable Unavailable Unavailable DANYELLE, LUCRECIA Unavailable [address] + [place] [address] HENRI MAYA Unavailable Unavailable + [place] [address] D Unavailable Unavailable Unavailable DANYELLE, LUCRECIA Unavailable [address] + [place] [address] CHERELLE ÁLVAREZANDRA Unavailable Unavailable + [place] [address] D Unavailable Unavailable Unavailable DANYELLE, LUCRECIA Unavailable [address] + [place] [address] HENRI MAYA Unavailable Unavailable + [place] [address] D Unavailable Unavailable Unavailable DANYELLE, LUCRECIA Unavailable [address] + [place] [address] CHERELLE ÁLVAREZANDRA Unavailable Unavailable + [place] [address] D Unavailable Unavailable Unavailable DANYELLE, LUCRECIA Unavailable [address] + [place] [address] HENRI, MAYA Unavailable Unavailable + [place] [address] D Unavailable Unavailable Unavailable DANYELLE, LUCRECIA Unavailable [address] + [place] [address] HENRI, MAYA Unavailable Unavailable + [place] [address] D Unavailable Unavailable Unavailable DANYELLE, LUCRECIA Unavailable [address] + [place] [address] HENRI, MAYA Unavailable Unavailable + [place] [address] D Unavailable Unavailable Unavailable DANYELLE, LUCRECIA Unavailable [address] + [place] [address] HENRI, MAYA Unavailable Unavailable + [place] [address] D Unavailable Unavailable Unavailable DANYELLE, LUCRECIA Unavailable [address] + [place] [address] HENRI, MAYA Unavailable Unavailable + [place] [address] D Unavailable Unavailable Unavailable DANYELLE, LUCRECIA Unavailable [address] + [place] [address] HENRI, MAYA Unavailable Unavailable + [place] [address] D Unavailable Unavailable Unavailable DANYELLE, LUCRECIA Unavailable [address] + [place] [address] HENRI, MAYA Unavailable Unavailable + [place] [address] D Unavailable Unavailable Unavailable DANYELLE, LUCRECIA Unavailable [address] + [place] [address] HENRI, MAYA Unavailable Unavailable + [place] [address] D Unavailable Unavailable Unavailable DANYELLE, LUCRECIA Unavailable [address] + [place] [address] HENRI, MAYA Unavailable Unavailable + [place] [address] D Unavailable Unavailable Unavailable DANYELLE, LUCRECIA Unavailable [address] + [place] [address] HENRI, MAYA Unavailable Unavailable + [place] [address] D Unavailable Unavailable Unavailable DANYELLE, LUCRECIA Unavailable [address] + [place] [address] HENRI, MAYA Unavailable Unavailable + [place] [address] D Unavailable Unavailable Unavailable DANYELLE, LUCRECIA Unavailable [address] [phone] [place] [address] HENRI, MAYA Unavailable Unavailable + [place] [address] D Unavailable Unavailable Unavailable DANYELLE, LUCRECIA Unavailable [address] [phone] [place] [address] HENRI, MAYA Unavailable Unavailable + [place] [address] D Unavailable Unavailable Unavailable DANYELLE, LUCRECIA Unavailable [address] + [place] [address] HENRI, MAYA Unavailable Unavailable + [place] [address] D Unavailable Unavailable Unavailable DANYELLE, LUCRECIA Unavailable [address] + [place] [address] HENRI, MAYA Unavailable Unavailable + [place] [address] D Unavailable Unavailable Unavailable DANYELLE, LUCRECIA Unavailable [address] [phone] [place] [address] HENRI, MAYA Unavailable Unavailable + [place] [address] D Unavailable Unavailable Unavailable DANYELLE, LUCRECIA Unavailable [address] + [place] [address] HENRI, MAYA Unavailable Unavailable + [place] [address] D Unavailable Unavailable Unavailable DANYELLE, LUCRECIA Unavailable [address] [phone] [place] [address] HENRI, MAYA Unavailable Unavailable + [place] [address] D Unavailable Unavailable Unavailable DANYELLE, LUCRECIA Unavailable [address] + [place] [address] HENRI, MAYA Unavailable Unavailable + [place] [address] D Unavailable Unavailable Unavailable DANYELLE, LUCRECIA Unavailable [address] [phone] [place] [address] HENRI, MAYA Unavailable Unavailable + [place] [address] D Unavailable Unavailable Unavailable DANYELLE, LUCRECIA Unavailable [address] [phone] [place] [address] HENRI, MAYA Unavailable Unavailable + [place] [address] D Unavailable Unavailable Unavailable DANYELLE, LUCRECIA Unavailable [address] [phone] [place] [address] HENRI, MAYA Unavailable Unavailable + [place] [address] D Unavailable Unavailable Unavailable DANYELLE, LUCRECIA Unavailable [address] [phone] [place] [address] HENRI, MAYA Unavailable Unavailable + [place] [address] D Unavailable Unavailable Unavailable DANYELLE, LUCRECIA Unavailable [address] [phone] [place] [address] HENRI, MAYA Unavailable Unavailable + [place] [address] D Unavailable Unavailable Unavailable DANYELLE, LUCRECIA Unavailable [address] [phone] [place] [address] HENRI, MAYA Unavailable Unavailable + [place] [address] D Unavailable Unavailable Unavailable DANYELLE, LUCRECIA Unavailable [address] [phone] [place] [address] HENRI, MAYA Unavailable Unavailable + [place] [address] D Unavailable Unavailable Unavailable DANYELLE, LUCRECIA Unavailable [address] [phone] [place] [address] HENRI MAYA Unavailable Unavailable + [place] [address] D Unavailable Unavailable Unavailable DANYELLE, LUCRECIA Unavailable [address] [phone] [place] [address] HENRI MAYA Unavailable Unavailable + [place] [address] D Unavailable Unavailable Unavailable DANYELLE, LUCRECIA Unavailable [address] [phone] [place] [address] HENRI MAYA Unavailable Unavailable + [place] [address] D Unavailable Unavailable Unavailable DANYELLE, LUCRECIA Unavailable [address] [phone] [place] [address] HENRI, MAYA Unavailable Unavailable + [place] [address] D Unavailable Unavailable Unavailable DANYELLE, LUCRECIA Unavailable [address] [phone] [place] [address] HENRI, MAYA Unavailable Unavailable + [place] [address] D Unavailable Unavailable Unavailable DANYELLE, LUCRECIA Unavailable [address] [phone] [place] [address] Care Team Providers Name Role Phone UNGBINTA, DO REMUN Attending Unavailable Elderbrock, Valeria Primary Care Unavailable White, Ninfa Admitting Unavailable Robert Mosley Attending Unavailable White, Ninfa Admitting Unavailable White, Ninfa Attending Unavailable Elderbrock, Valeria Primary Care Unavailable White, Ninfa Consulting Unavailable White, Ninfa Admitting Unavailable HENRIK ElderC Attending Unavailable Elderbrock, Valeria Primary Care Unavailable Sebastien Smith Consulting Unavailable White, Ninfa Admitting Unavailable DangeloeSebastien Attending Unavailable Elderbrock, Valeria Primary Care Unavailable Sebastien Smith Consulting Unavailable White, Nifna Admitting Unavailable Sebastien Smith Attending Unavailable Elderbrock, Valeria Primary Care Unavailable Sebastien Smith Consulting Unavailable White, Ninfa Admitting Unavailable Sebastien Smith Attending Unavailable Elderbrock, Valeria Primary Care Unavailable Sebastien Smith Consulting Unavailable White, Ninfa Admitting Unavailable Robert Mosley Attending Unavailable Elderbrock, Valeria Primary Care Unavailable Robert Mosley Consulting Unavailable Elderbrock, Valeria Primary Care Unavailable Keshawn Oakes Admitting Unavailable Emigdio Alexander Consulting Unavailable KittoeSebastien Attending Unavailable [facility], Keshawn Admitting Unavailable [facility], Keshawn Attending Unavailable Elderbrock, Valeria Primary Care Unavailable Catherine, Emigdio Consulting Unavailable [facility], Keshawn Consulting Unavailable [facility], Keshawn Admitting Unavailable Kittoe, Sebastien Attending Unavailable Elderbrock, Valeria Primary Care Unavailable Catherine, Emigdio Consulting Unavailable Kittoe, Sebastien Consulting Unavailable [facility], Keshawn Admitting Unavailable Kittoe, Sebastien Attending Unavailable Elderbrock, Valeria Primary Care Unavailable Catherine, Emigdio Consulting Unavailable Kittoe, Sebastien Consulting Unavailable [facility], Keshawn Admitting Unavailable Kittoe, Sebastien Attending Unavailable Elderbrock, Valeria Primary Care Unavailable Catherine, Emigdio Consulting Unavailable Kittoe, Sebastien Consulting Unavailable Elderbrock, Valeria Primary Care Unavailable [facility], Keshawn Admitting Unavailable Gbaruk, Kombian Attending Unavailable [facility], Keshawn Admitting Unavailable [facility], Keshawn Attending Unavailable Elderbrock, Valeria Primary Care Unavailable [facility], Keshawn Consulting Unavailable [facility], Keshawn Admitting Unavailable TereletskyValeria Attending Unavailable Elderbrock, Valeria Primary Care Unavailable Tereletsky, Valeria Consulting Unavailable [facility], Keshawn Admitting Unavailable Elderbrock, Valeria Primary Care Unavailable Tereletsky, Valeria Consulting Unavailable Sementi, Juju Attending Unavailable [facility], Keshawn Admitting Unavailable Elderbrock, Valeria Primary Care Unavailable [place]bar[place], Kombian Consulting Unavailable Sementi, Juju Attending Unavailable [facility], Keshawn Admitting Unavailable Elderbrock, Valeria Primary Care Unavailable [place]bar[place], Kombian Consulting Unavailable Sementi, Juju Attending Unavailable [facility], Keshawn Admitting Unavailable Elderbrock, Valeria Primary Care Unavailable [place]bar[place], Kombian Consulting Unavailable Sementi, Juju Attending Unavailable Jose Carlos, Jovani Chi Admitting Unavailable Jose Carlos, Jovani Chi Attending Unavailable Jose Carlos, Jovani Chi Referring Unavailable Elderbrock, Valeria Primary Care Unavailable Jose J Carballo Attending Unavailable [place]baruk, Kombian Referring Unavailable Elderbrock, Valeria Primary Care Unavailable Dagoberto Castro Admitting Unavailable Dagoberto Castro Attending Unavailable Robotham, Ana Consulting Unavailable Jose Carlos, Jovani Chi Admitting Unavailable Jose Carlos, Jovani Chi Attending Unavailable Elderbrock, Valeria Primary Care Unavailable Andrzej Tran Consulting Unavailable Robotham, Ana Consulting Unavailable Fascione, Mague Consulting Unavailable Andrzej Tran Attending Unavailable Elderbrock, Valeria Primary Care Unavailable Andrzej Tran Admitting Unavailable Slabjeffery, Andrzej Referring Unavailable Castro, Dagoberto Attending Unavailable KittoeSebastien Attending Unavailable Jose Carlos, Jovani Chi Admitting Unavailable Robotham, Ana Attending Unavailable Elderbrock, Valeria Primary Care Unavailable Slaby, Andrzej Consulting Unavailable Robotham, Ana Consulting Unavailable Jose Carlos, Jovani Chi Consulting Unavailable Haris, [place] Attending Unavailable Gbaruk, Kombian Referring Unavailable Jose Carlos, Jovani Chi Admitting Unavailable Slaby, Andrzej Attending Unavailable Elderbrock, Valeria Primary Care Unavailable Slaby, Andrzej Consulting Unavailable Robotham, Ana Consulting Unavailable Jose Carlos, Jovani Chi Consulting Unavailable Haris, Jose J Attending Unavailable Villar, Garland Referring Unavailable Slaby, Andrzej Attending Unavailable Castro, Dagoberto Referring Unavailable Slaby, Andrzej Attending Unavailable Castro, Dagoberto Referring Unavailable Jose Carlos, Jovani Chi Admitting Unavailable Valeria Ogelsby INTERACTIVE WEB DEVELOPER-C Attending Unavailable Elderbrock, Valeria Primary Care Unavailable Slaby, Andrzej Consulting Unavailable Robotham, Ana Consulting Unavailable Fascione, Mague Consulting Unavailable Jose Carlos, Jovani Chi Consulting Unavailable Slabjeffery, Andrzej Attending Unavailable Elderbrock, Valeria Primary Care Unavailable Slaby, Andrzej Attending Unavailable Elderbrock, Valeria Primary Care Unavailable Slaby, Andrzej Attending Unavailable Elderbrock, Valeria Primary Care Unavailable Slaby, Andrzej Consulting Unavailable Corrine Hudson Attending Unavailable Elderbrock, Valeria Primary Care Unavailable Slaby, Andrzej Consulting Unavailable Slaby, Andrzej Attending Unavailable Elderbrock, Valeria Primary Care Unavailable PROBLEMS PROBLEMS DATE TYPE CONDITION / CODE ATTENDING STATUS SOURCE 02/04/2018 Unknown Z48.817 - Encounter Linh Active [facility] for surgical aftercare [facility] following surgery on Hospital the skin and Repository subcutaneous tissue / Z48.817(ICD-10) 11/26/2017 Unknown L02.416 - Cutaneous Dagoberto Castro Active [place] abscess of left lower [facility] limb / L02.416(ICD-10) Hospital Repository 12/24/2017 Unknown I50.9 - Heart failure, Haris, Jose J Active [facility] unspecified / Community I50.9(ICD-10) Hospital Repository 10/25/2017 Unknown R53.81 - Other malaise Jose Carlos, Jovani Chi Active [place] / R53.81(ICD-10) Community Hospital Repository 01/08/2018 Unknown I48.91 - Unspecified Haris, Jose J Active [facility] atrial fibrillation / Community I48.91(ICD-10) Hospital Repository 01/08/2018 Unknown R94.31 - Abnormal Jose J Carballo Active [place] electrocardiogram Community [ECG] [EKG] / Hospital R94.31(ICD-10) Repository 01/08/2018 Unknown I11.0 - Hypertensive HarisJose J overton Active [facility] heart disease with Community heart failure / Hospital I11.0(ICD-10) Repository 11/19/2017 Unknown J18.9 - Pneumonia, KittoSebastien mabry Active [facility] unspecified organism / Community J18.9(ICD-10) Hospital Repository PROCEDURES PROCEDURES No Procedure Records FoundRESULTS RESULTS DISCHARGE SUMMARY Observed: 06/29/2018 Status: F Source: [place] 11:59 AM [facility] REPOSITORY [facility] Medical Records Department [address] [place] [address] Discharge Summary 06/29/18 1142 MR#: [id number] Acct: [id number] Name: EMILEE BASSETT Rep #: [id number] : 1965 53 From: Robert Mosley MD PCP: Valeria Mace MD Status: ADM IN Y Location: [place] [address] Discharge Date and Diagnosis - Problem List Patient Problems: Active and Suspected Problems CHF exacerbation (Acute) Anemia (Acute) Date of Admission: 06/24/18 Date of Discharge: 06/29/18 - Primary Discharge Diagnosis Active and Suspected Problems CHF exacerbation (Acute) Anemia (Acute) - Secondary Discharge Diagnosis Chronic Problems Ulcer of left thigh (Chronic) PAF (paroxysmal atrial fibrillation) (Chronic) acute on chronic blood loss anemia (Chronic) Morbid obesity (Chronic) GERD (gastroesophageal reflux disease) (Chronic) Irritable bowel syndrome (Chronic) Overactive bladder (Chronic) Wide-complex tachycardia (Chronic) Chronic diastolic CHF (congestive heart failure) (Chronic) Type 2 diabetes mellitus (Chronic) HgbA1c 06/2016 6.5%. 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 Pulmonary vascular congestion. Interstitial prominence bilaterally. None Operations: None Procedures: 2-D Echocardiogram - Interpretation Summary The estimated ejection fraction is 65 %. Moderately dilated right ventricle. Trivial mitral valve insufficiency. Mild (1+) tricuspid valve insufficiency. Right ventricular systolic pressure estimated to be 56 mmHg. Moderate pulmonary hypertension. Stage 2 diastolic dysfunction. Compared to echo report dated 10/06/2017, LV function has remained the same, but RVSP has gone from 42 to 56 mm Hg. May be underestimated. The study was technically difficult. Summary of Care Provided: Per HPI: The patient is a 53 y/o F w/ PMHx: Chronic Normocytic Anemia (Hgb 9-10 baseline), Chronic Diastolic CHF, Persistent Hypokalemia treated w/ supplementation, Gout, OA, Diabetes mellitus type II, HTN, HLD, RICKI, Morbid obesity, Chronic BL LE Lymphedema, Chronic Hypoxic Respiratory Failure secondary to Hypoventilation Syndrome complicated by Chronic Asthma (4L NC chronically), PVD who presents to the [facility] ED on 06/24/18 with history of progressively worsening dyspnea, orthopnea, increased bilateral lower extremity edema on chronic bilateral lower extremity lymphedema in addition to ongoing cough productive of white phlegm times 1 week. Work-up in the ED included CBC with WBC 6.6, hemoglobin 7.4, platelet 190 without marked shift, BMP with carbon dioxide 33, troponin less than 0.015, BNP 244, urinalysis not marked appearing, chest x-ray with mild cardiomegaly, diffuse increased density throughout the mid and lower lung bailey bilaterally with increased vascular prominence with acute congestion, EKG with SR without acute evidence of ischemia. In the ED patient administered 40 mg IV Lasix x1. Type and cross 1 unit ordered per ED. Hospital Course: 1. Acute on chronic diastolic heart failure/chronic respiratory failure secondary to obesity hypoventilation syndrome/obstructive sleep apnea -53-year-old morbidly obese female who presented to the hospital on 06/24/2018 with worsening dyspnea, orthopnea, and increased bilateral lower extremity edema. She was diuresed well with IV Lasix 40 mg 3 times daily. On admission she was 408 pounds and on the day of discharge she is 358 pounds. She is down almost 23 L since when she came in. Her oxygen status is much better even though she is on 4 L nasal cannula at home at night. She is breathing much better and she feels much better. She will be discharged to a fpc facility for rehab and continued oxygen therapy as well as diuresis. She did have an echo which demonstrated an EF of 65% and diastolic dysfunction. Also compared to September 2017 her right ventricular systolic pressure has increased from 42 to 56 mmHg. She will need to follow-up with cardiology as an outpatient once discharged from fpc facility. 2. Anemia of chronic disease-on presentation to the ER she was below 8 and was transfused a unit because she was symptomatic. A fecal occult blood test was done which was negative. She was started on iron replacement therapy and her hemoglobin on the day of discharge was 8.3 which does appear to be baseline or close to baseline based on review of her previous hemoglobin levels over the last 6-6 months. 3. Her other medical diagnoses were evaluated and her home medications were continued were appropriate Patient Problems: Active and Suspected Problems CHF exacerbation (Acute) Anemia (Acute) - Physical Exam General: Alert, Oriented x3, Cooperative, No apparent distress HEENT: Atraumatic, EOMI, Normocephalic Oral: Moist Mucosa Neck: Supple, No JVD, Trachea Midline Lungs: Clear to auscultation, Normal air movement, No rhonchi, No wheeze, No rales, Diminished Cardiovascular: Regular rate, Regular Rhythm, Normal S1, Normal S2, No murmurs Abdomen: Soft, Non Tender, Non-Distended, No Hepato-splenomegaly, Obese Extremities: Capillary Refill Less than 3 Seconds, Edema, - - Legs are wrapped in Marbin wrap, significant lymphedema Skin: - - Chronic venous stasis changes Neurological: Neuro grossly intact, Sensory exam intact to light touch and pain Psych/Mental Status: Normal Affect, Appropriate Vital Signs Temp Pulse Resp BP Pulse Ox 97.8 F 73 18 124/61 H 94 06/29/18 08:33 06/29/18 11:00 06/29/18 10:00 06/29/18 08:33 06/29/18 10:00 Oxygen Flow Rate (L/min) 2 Oxygen Delivery Method Nasal Cannula Weight: 358 lb 7.546 oz Body Mass Index (BMI) 79.7 Intake and Output for Last 24 Hours Intake Total 610 / 610 840 / 840 Output Total 3675 / 3675 6100 / 6100 800 / 800 Balance -3065 / -3065 -5260 / -5260 -800 / -800 Laboratory Tests Past 24 Hrs WBC 6.4 RBC 3.28 L Hgb 8.3 L Hct 31.4 L MCV 95.7 MCH 25.3 L MCHC 26.4 L RDW 18.7 H RDW Differential 61.2 H Plt Count 239 MPV 9.0 POC Glucose POC Glucose 116 H 157 H 123 H Discharge Diet: - - Fluid restriction to 1500 cc Discharge Activity: Return to Normal Activity Home Medications: Medications to take at Discharge Albuterol Sulfate [Ventolin Hfa] 2 puff INHALATION Q4H PRN PRN 01/08/17 Pantoprazole Sodium [Protonix] 40 mg PO DAILY 02/13/17 Dicyclomine HCl [Bentyl] 20 mg PO Q6H PRN PRN 03/10/17 Multivitamin [Daily Multiple Vitamin] 1 each PO DAILY 08/05/17 AcetaAZOLAMIDE [Diamox] 250 mg PO TID #90 tab 10/21/17 Menthol/Lanolin/Calamine/Znox [Calmoseptine Ointment] 1 applic TOPICAL TID tube 10/21/17 Nystatin Powder [Mycostatin Powder] 1 applic TOPICAL 0600,2200 #1 bottle 10/21/17 ALPRAZolam [Xanax] 0.5 mg PO Q6H PRN PRN #30 tab 01/12/18 AcetaAZOLAMIDE [Diamox] 125 mg PO TID tablet 01/12/18 Acetaminophen [Tylenol] 1,000 mg PO Q8H PRN tablet 01/12/18 Cyclobenzaprine [Flexeril] 10 mg PO TID PRN PRN #90 tab 01/12/18 Diltiazem CD [Cardizem CD] 120 mg PO BID capsule 01/12/18 Gabapentin [Neurontin] 300 mg PO HS #30 cap 01/12/18 Iron Polysaccharide Complex [Ferrex 150] 150 mg PO BID #60 cap 01/12/18 Metoprolol(XL)Succ [Toprol Xl (Beta Vikki)] 25 mg PO DAILY tablet 01/12/18 Nutritional Supplement [Saul - ORANGE FLAVOR] 1 packet PO BIDCM packet 01/12/18 Glimepiride [Amaryl] 2 mg PO DAILY 06/24/18 Furosemide [Lasix] 40 mg PO BIDLX #60 tab 06/26/18 Iron Poly/Vit C [Niferex-150] 150 mg PO DAILYCM #30 capsule 06/26/18 Following Prescrptions Were Given to Patient: Iron Poly/Vit C [Niferex-150] 150 mg PO DAILYCM #30 capsule Primary Care Physician: Valeria Mace MD [Primary Care Provider] - Please follow up with your Primary Care Physician in: in 5- 7 days Please Follow Up With: Valeria Mace MD [facility] Minutes spent on discharge:: 35 Patient Condition:: Stable Medical Necessity - Tobacco Use Smoking Status: Former smoker Tobacco Use: Non-smoker Meaningful Use Info Meaningful Use Diagnoses (Choose all that apply): CHF - CHF MARBIN/ARB ordered at discharge?: Yes Documented LVEF (%): 65 Code Visit Inpatient E AND M: [id number] Disch Hosp 06/29/18 1159 <Electronically signed by Robert Mosley MD> Date Robert Mosley MD Cosign Signature (if applicable): Date CC: Valeria Mace MD; Robert Mosley MD Signed BEDSIDE GLUCOSE Collected: 06/29/2018 Status: F Source: [place] 11:44 AM [facility] REPOSITORY TYPE CODE TESTS RESULT OUT OF REFERENCE UNITS RANGE LAB L501.080 70-110 mg/dL High BEDSIDE GLU 165 Result Comment: MANAGEMENT OF PATIENT CARE PER NURSING PROTOCOL Performed By: #### L501.080 #### [facility] Point of Care [address] [place] [address] TRANSFER TO [facility] Observed: 06/29/2018 Status: F Source: [place] CARE 11:42 AM [facility] REPOSITORY [facility] Medical Records Department [address] [place] [address] Transfer to Extended Care MR#: [id number] Acct: [id number] Name: EMILEE BASSETT Rep #: [id number] : 1965 53 From: Robert Mosley MD PCP: Valeria Mace MD Status: ADM IN EMILEE BASSETT (Patient) (Health Ins. Claim No.) (Day of Discharge to Facility) Certification of patient admission REQUIRED AT TIME OF ADMISSION. I CERTIFY THAT POST-HOSPITAL ECF SERVICES ARE REQUIRED TO BE GIVEN ON AN IN-PATIENT BASIS BECAUSE OF THE ABOVE NAMED PATIENT'S NEED FOR LONG TERM CARE ON A CONTINUING BASIS FOR THE CONDITION(S) FOR WHICH HE/SHE WAS RECEIVING IN-PATIENT HOSPITAL SERVICES PRIOR TO HIS/HER TRANSFER TO THE F. 06/29/18 1142 <Electronically signed by Robert Mosley MD> Date Robert Mosley MD - Diet 06/24/18 03:48 Diet: Cardiac: Calorie-Controlled Food consistency:: Regular Liquid Consistency:: Regular/Thin How many daily calories?: 1800 calorie - Wound(s) Left Inner Thigh Wound Type: Surgical Incision - Allergies/Procedures Done in Hospital Allergies/Adverse Reactions: Allergies latex Allergy (Verified 06/24/18 05:09) Rash levofloxacin [From Levaquin] Adverse Reaction (Verified 06/24/18 05:09) SPEEDS UP MY HEART AND SHUTS DOWN MY KIDNEYS mushrooms Allergy (Uncoded 08/05/17 21:19) Anaphylaxis - Type of Care/Length of Stay Estimated LOS: Convalescent Care Less Than 30 days Type of Care Needed: Skilled Rehab Potential: Good Prognosis: Good - Additional Orders/Day of Discharge Day of Discharge: 06/29/18 - Dietary and Speech Recommendations Dietitian Recommendations/Changes: Rec 1800 calorie controlled, cardiac, low sodium diet w/ fluid restriction as indicated. Will d/c Glucerna d/t wt gain and adequate PO intake. Rec d/c Saul BID d/t no open wounds. - Follow Up Care Primary Care Physician: Valeria Mace MD [Primary Care Provider] - Please follow up with your Primary Care Physician in: in 5- 7 days Please Follow Up With: Valeria Mace MD 06/29/18 1142 <Electronically signed by Robert Mosley MD> Date Robert Mosley MD CC: Valeria Mace MD Signed BEDSIDE GLUCOSE Collected: 06/29/2018 Status: F Source: YOLANDA 6:59 AM [facility] REPOSITORY TYPE CODE TESTS RESULT OUT OF REFERENCE UNITS RANGE LAB L501.080 70-110 mg/dL High BEDSIDE GLU 116 Result Comment: MANAGEMENT OF PATIENT CARE PER NURSING PROTOCOL Performed By: #### L501.080 #### [facility] Point of Care [address] [place] [address] CBC-COMPLETE BLOOD CNT Collected: 06/29/2018 Status: F Source: YOLANDA NO DIFF 6:02 AM [facility] REPOSITORY TYPE CODE TESTS RESULT OUT OF RANGE REFERENCE UNITS LAB L100.1000 4.4-11.0 K/mm3 Normal WBC 6.4 LAB L100.1200 4.2-5.4 M/mm3 Low RBC 3.28 LAB L100.1300 12.0-15.0 g/dl Low HGB 8.3 LAB L100.1400 37-47 % Low HCT 31.4 LAB L100.1500 81-99 fL Normal MCV 95.7 LAB L100.1600 27.0-32.0 pg Low MCH 25.3 LAB L100.1700 32-36 g/gl Low MCHC 26.4 LAB L100.1810 11.6-14.6 % High RDW CV 18.7 LAB L100.1820 35.1-43.9 fl High RDW SD 61.2 LAB L100.1900 150-450 K/mm3 Normal PLT 239 LAB L100.2000 6.2-12.0 fl Normal MPV 9.0 Performed By: #### L100.0500 #### [facility] [address] [place], [address] BEDSIDE GLUCOSE Collected: 06/28/2018 Status: F Source: YOLANDA 9:04 PM [facility] REPOSITORY TYPE CODE TESTS RESULT OUT OF REFERENCE UNITS RANGE LAB L501.080 70-110 mg/dL High BEDSIDE GLU 157 Result Comment: MANAGEMENT OF PATIENT CARE PER NURSING PROTOCOL Performed By: #### L501.080 #### [facility] Point of Care [address] [place], [place] [address] BEDSIDE GLUCOSE Collected: 06/28/2018 Status: F Source: YOLANDA 4:31 PM [facility] REPOSITORY TYPE CODE TESTS RESULT OUT OF REFERENCE UNITS RANGE LAB L501.080 70-110 mg/dL High BEDSIDE GLU 123 Result Comment: MANAGEMENT OF PATIENT CARE PER NURSING PROTOCOL Performed By: #### L501.080 #### [facility] Point of Care [address] [place] [address] BEDSIDE GLUCOSE Collected: 06/28/2018 Status: F Source: YOLANDA 11:29 AM [facility] REPOSITORY TYPE CODE TESTS RESULT OUT OF REFERENCE UNITS RANGE LAB L501.080 70-110 mg/dL High BEDSIDE GLU 122 Result Comment: MANAGEMENT OF PATIENT CARE PER NURSING PROTOCOL Performed By: #### L501.080 #### [facility] Point of Care [address] [place], [place] [address] BEDSIDE GLUCOSE Collected: 06/28/2018 Status: F Source: YOLANDA 6:54 AM [facility] REPOSITORY TYPE CODE TESTS RESULT OUT OF REFERENCE UNITS RANGE LAB L501.080 70-110 mg/dL High BEDSIDE GLU 117 Result Comment: MANAGEMENT OF PATIENT CARE PER NURSING PROTOCOL Performed By: #### L501.080 #### [facility] Point of Care [address] [place] [address] CBC-COMPLETE BLOOD CNT Collected: 06/28/2018 Status: F Source: YOLANDA NO DIFF 6:02 AM [facility] REPOSITORY TYPE CODE TESTS RESULT OUT OF RANGE REFERENCE UNITS LAB L100.1000 4.4-11.0 K/mm3 Normal WBC 6.0 LAB L100.1200 4.2-5.4 M/mm3 Low RBC 3.17 LAB L100.1300 12.0-15.0 g/dl Low HGB 8.0 LAB L100.1400 37-47 % Low HCT 30.1 LAB L100.1500 81-99 fL Normal MCV 95.0 LAB L100.1600 27.0-32.0 pg Low MCH 25.2 LAB L100.1700 32-36 g/gl Low MCHC 26.6 LAB L100.1810 11.6-14.6 % High RDW CV 18.7 LAB L100.1820 35.1-43.9 fl High RDW SD 60.1 LAB L100.1900 150-450 K/mm3 Normal PLT 221 LAB L100.2000 6.2-12.0 fl Normal MPV 9.2 Performed By: #### L100.0500 #### [facility] [address] [facility] [address] BEDSIDE GLUCOSE Collected: 06/27/2018 Status: F Source: YOLANDA 9:47 PM [facility] REPOSITORY TYPE CODE TESTS RESULT OUT OF REFERENCE UNITS RANGE LAB L501.080 70-110 mg/dL High BEDSIDE GLU 123 Result Comment: MANAGEMENT OF PATIENT CARE PER NURSING PROTOCOL Performed By: #### L501.080 #### [facility] Point of Care [address] [facility] [place] [address] BEDSIDE GLUCOSE Collected: 06/27/2018 Status: F Source: YOLANDA 4:04 PM [facility] REPOSITORY TYPE CODE TESTS RESULT OUT OF REFERENCE UNITS RANGE LAB L501.080 70-110 mg/dL High BEDSIDE GLU 149 Result Comment: MANAGEMENT OF PATIENT CARE PER NURSING PROTOCOL Performed By: #### L501.080 #### [facility] Point of Care [address] [place] [address] BEDSIDE GLUCOSE Collected: 06/27/2018 Status: F Source: YOLANDA 11:49 AM [facility] REPOSITORY TYPE CODE TESTS RESULT OUT OF RANGE REFERENCE UNITS LAB L501.080 70-110 mg/dL Normal BEDSIDE GLU 108 Result Comment: MANAGEMENT OF PATIENT CARE PER NURSING PROTOCOL Performed By: #### L501.080 #### [facility] Point of Care [address] [place] [address] BEDSIDE GLUCOSE Collected: 06/27/2018 Status: F Source: YOLANDA 6:47 AM [facility] REPOSITORY TYPE CODE TESTS RESULT OUT OF RANGE REFERENCE UNITS LAB L501.080 70-110 mg/dL Normal BEDSIDE GLU 109 Result Comment: MANAGEMENT OF PATIENT CARE PER NURSING PROTOCOL Performed By: #### L501.080 #### [facility] Point of Care [address] [place] [address] BASIC METABOLIC Collected: 06/27/2018 Status: F Source: YOLANDA PROFILE (BMP) 5:25 AM [facility] REPOSITORY TYPE CODE TESTS RESULT OUT OF RANGE REFERENCE UNITS LAB L501.0100 74-106 mg/dL Normal GLU 93 Result Comment: Please note revised GLUCOSE reference range effective 2017. LAB L501.1000 7-18 mg/dL Normal BUN 18 LAB L501.1100 0.55-1.02 mg/dL Normal CREAT,SERUM 0.95 Result Comment: The validity of the calculated GFR AND GFRAA in patients over 70 years has not been determined. Clinical correlation is essential. LAB L501.1110 >60 mL/min Normal EST GFR 66 Result Comment: Non- GFR Calc LAB L501.1115 >60 mL/min Normal EST GFR - AA 79 Result Comment: GFR Calc LAB L501.1255 ml/min Normal Estimated CRCL 49.19 LAB L501.1300 10-20 RATIO Normal BUN/CRE 19.0 LAB L501.2200 8.5-10 mg/dL Low .1 CA 7.6 LAB L501.5300 136-14 mmol/L Normal 5 NA 137 LAB L501.5600 3.5-5. mmol/L Normal 1 K 4.1 LAB L501.5900 98-107 mmol/L Normal CL 98 LAB L501.6100 21.0-3 mmol/L Normal 2.0 CO2 32.0 LAB L501.6200 5-15 Normal GAP 7 Performed By: #### L500.2500 #### [facility] [address] [place], [address] BEDSIDE GLUCOSE Collected: 06/26/2018 Status: F Source: YOLANDA 9:57 PM [facility] REPOSITORY TYPE CODE TESTS RESULT OUT OF REFERENCE UNITS RANGE LAB L501.080 70-110 mg/dL High BEDSIDE GLU 149 Result Comment: MANAGEMENT OF PATIENT CARE PER NURSING PROTOCOL Performed By: #### L501.080 #### [facility] Point of Care [address] [place] [address] BEDSIDE GLUCOSE Collected: 06/26/2018 Status: F Source: YOLANDA 4:47 PM [facility] REPOSITORY TYPE CODE TESTS RESULT OUT OF REFERENCE UNITS RANGE LAB L501.080 70-110 mg/dL High BEDSIDE GLU 129 Result Comment: MANAGEMENT OF PATIENT CARE PER NURSING PROTOCOL Performed By: #### L501.080 #### [facility] Point of Care [address] [place] [address] BEDSIDE GLUCOSE Collected: 06/26/2018 Status: F Source: YOLANDA 12:45 PM [facility] REPOSITORY TYPE CODE TESTS RESULT OUT OF REFERENCE UNITS RANGE LAB L501.080 70-110 mg/dL High BEDSIDE GLU 159 Result Comment: MANAGEMENT OF PATIENT CARE PER NURSING PROTOCOL Performed By: #### L501.080 #### [facility] Point of Care [address] [place] [address] DISCHARGE SUMMARY Observed: 06/26/2018 Status: F Source: YOLANDA 10:19 AM [facility] REPOSITORY [facility] Medical Records Department [address] [place] [address] Discharge Summary 06/26/18 1014 MR#: [id number] Acct: [id number] Name: EMILEE BASSETT Rep #: [id number] : 1965 53 From: Sebastien Smith MD PCP: Valeria Mace MD Status: ADM IN Location: [place] [address] Discharge Date and Diagnosis - Problem List Patient Problems: Active and Suspected Problems CHF exacerbation (Acute) Anemia (Acute) Date of Admission: 06/24/18 Date of Discharge: 06/26/18 - Primary Discharge Diagnosis Active and Suspected Problems CHF exacerbation (Acute) Anemia (Acute) - Secondary Discharge Diagnosis Chronic Problems Ulcer of left thigh (Chronic) PAF (paroxysmal atrial fibrillation) (Chronic) acute on chronic blood loss anemia (Chronic) Morbid obesity (Chronic) GERD (gastroesophageal reflux disease) (Chronic) Irritable bowel syndrome (Chronic) Overactive bladder (Chronic) Wide-complex tachycardia (Chronic) Chronic diastolic CHF (congestive heart failure) (Chronic) Type 2 diabetes mellitus (Chronic) HgbA1c 06/2016 6.5%. 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 Acute on chronic diastolic congestive heart failure. Patient has been admitted to telemetry bed, placed on fluid restriction supplemental oxygen in addition to Lasix repeat echo ordered. Echo demonstrated EF of 65% 2. Anemia secondary to anemia of chronic disorder do suspect she has anemia contributing to her heart failure. Being symptomatic and order was given for patient to be transfused with 1 unit PRBC regional unit was transfused on 06/25/2018 3. Chronic respiratory failure secondary to obesity hypoventilation syndrome patient is on baseline oxygen 4 L at night 3. Diabetes mellitus type 2 continued with home regimen in addition to Accu-Cheks before meals and at bedtime with sliding scale coverage 5. Mild intermittent asthma currently stable albuterol as needed 6. Obstructive sleep apnea 7. Nonobstructing left renal calculus 8. Degenerative joint disease 9. Fatty liver do suspect nonalcoholic fatty liver disease from patient's morbid obesity as well as diabetes mellitus type 2 10. Chronic bilateral lower extremity lymphedema from venous insufficiency 11. Onychomycosis 12. Morbid obesity with BMI of 79 lifestyle modification including weight loss advised to discuss with patient to follow-up with PCP for referral for consideration for gastric bypass 13. DVT prophylaxis: Lovenox Patient Problems: Active and Suspected Problems CHF exacerbation (Acute) Anemia (Acute) Objective: GENERAL: cooperative HEENT: Atraumatic; moist oral mucosa EYES; Anicteric, Normal Conjunctiva NECK; supple, normal thyroid, no distended JVD. RESPIRATORY: Diminished to auscultation bilaterally, CARDIOVASCULAR: Regular S1 S2, no audible murmurs GI: soft, non-tender, normoactive bowel sounds, : No Renal angle tenderness; EXTREMITIES: Bilateral venous stasis NEURO: Awake; no lateralizing signs. SKIN: No Rash PSYCH; Normal affect - Physical Exam Vital Signs Temp Pulse Resp BP Pulse Ox 97.5 F L 73 18 114/57 L 95 06/26/18 03:45 06/26/18 07:06 06/26/18 03:45 06/26/18 05:13 06/26/18 07:19 Oxygen Flow Rate (L/min) 2 Oxygen Delivery Method Nasal Cannula Weight: 175.4 kg Body Mass Index (BMI) 79.7 Intake and Output for Last 24 Hours Intake Total 1552 / 1552 1543 / 1543 60 / 60 Output Total 3200 / 3200 9975 / 9975 2600 / 2600 Balance -1648 / -1648 -8432 / -8432 -2540 / -2540 Microbiology Past 72 Hours 06/24/18 05:10 Respiratory Panel (PCR) - Final Mucosa - Nose 06/24/18 01:45 Stool Occult Blood (JENNIFER) - Final Stool Laboratory Tests Past 24 Hrs WBC 8.5 RBC 3.46 L Hgb 8.5 L Hct 31.7 L POC Glucose POC Glucose 122 H 108 128 H POC Glucose 103 Discharge Activity: Return to Normal Activity Home Medications: Medications to take at Discharge Albuterol Sulfate [Ventolin Hfa] 2 puff INHALATION Q4H PRN PRN 01/08/17 Pantoprazole Sodium [Protonix] 40 mg PO DAILY 02/13/17 Dicyclomine HCl [Bentyl] 20 mg PO Q6H PRN PRN 03/10/17 Multivitamin [Daily Multiple Vitamin] 1 each PO DAILY 08/05/17 AcetaAZOLAMIDE [Diamox] 250 mg PO TID #90 tab 10/21/17 Menthol/Lanolin/Calamine/Znox [Calmoseptine Ointment] 1 applic TOPICAL TID tube 10/21/17 Nystatin Powder [Mycostatin Powder] 1 applic TOPICAL 0600,2200 #1 bottle 10/21/17 ALPRAZolam [Xanax] 0.5 mg PO Q6H PRN PRN #30 tab 01/12/18 AcetaAZOLAMIDE [Diamox] 125 mg PO TID tablet 01/12/18 Acetaminophen [Tylenol] 1,000 mg PO Q8H PRN tablet 01/12/18 Cyclobenzaprine [Flexeril] 10 mg PO TID PRN PRN #90 tab 01/12/18 Diltiazem CD [Cardizem CD] 120 mg PO BID capsule 01/12/18 Gabapentin [Neurontin] 300 mg PO HS #30 cap 01/12/18 Iron Polysaccharide Complex [Ferrex 150] 150 mg PO BID #60 cap 01/12/18 Metoprolol(XL)Succ [Toprol Xl (Beta Vikki)] 25 mg PO DAILY tablet 01/12/18 Nutritional Supplement [Saul - ORANGE FLAVOR] 1 packet PO BIDCM packet 01/12/18 Glimepiride [Amaryl] 2 mg PO DAILY 06/24/18 Furosemide [Lasix] 40 mg PO BIDLX #60 tab 06/26/18 Iron Poly/Vit C [Niferex-150] 150 mg PO DAILYCM #30 capsule 06/26/18 Following Prescrptions Were Given to Patient: Iron Poly/Vit C [Niferex-150] 150 mg PO DAILYCM #30 capsule Primary Care Physician: Valeria Mace MD [Primary Care Provider] - Please follow up with your Primary Care Physician in: in 5- 7 days Medical Necessity - Tobacco Use Smoking Status: Former smoker Tobacco Use: Non-smoker Meaningful Use Info Meaningful Use Diagnoses (Choose all that apply): CHF - CHF MARBIN/ARB ordered at discharge?: No Reason MARBIN/ARB not ordered?: Worsening renal dysfunctn Documented LVEF (%): 65 Code Visit Inpatient E AND M: 71110 Disch Hosp 06/26/18 1019 <Electronically signed by Sebastien Smith MD> Date Sebastien Smith MD Cosigner Signature (if applicable): Date CC: Sebastien Smith MD; Valeria Mace MD Signed DISCHARGE INSTRUCTION Observed: 06/26/2018 Status: F Source: YOLANDA 10:10 AM [facility] REPOSITORY [facility] Medical Records Department [address] [place] [address] Instructions for Home/Discharge Instructions 06/26/18 1008 MR#: [id number] Acct: [id number] Name: EMILEE BASSETT Rep #: [id number] : 1965 53 From: Sebastien Smith MD PCP: Valeria Mace MD Status: ADM IN - Discharge Diagnoses Current Active Problems: Current Active and Chronic Problems CHF exacerbation (Acute) PAF (paroxysmal atrial fibrillation) (Chronic) Anemia (Acute) You will use the following diet at home:: Fluid restricted (specify 2000 mls, 1500 mls) - 1500 Your food should be the consistency of: Regular Discharge Activity: Return to Normal Activity Allergies/Adverse Reactions: Allergies latex Allergy (Verified 06/24/18 05:09) Rash levofloxacin [From Levaquin] Adverse Reaction (Verified 06/24/18 05:09) SPEEDS UP MY HEART AND SHUTS DOWN MY KIDNEYS mushrooms Allergy (Uncoded 08/05/17 21:19) Anaphylaxis Medications to take at Discharge Albuterol Sulfate [Ventolin Hfa] 2 puff INHALATION Q4H PRN PRN 01/08/17 Pantoprazole Sodium [Protonix] 40 mg PO DAILY 02/13/17 Dicyclomine HCl [Bentyl] 20 mg PO Q6H PRN PRN 03/10/17 Multivitamin [Daily Multiple Vitamin] 1 each PO DAILY 08/05/17 AcetaAZOLAMIDE [Diamox] 250 mg PO TID #90 tab 10/21/17 Menthol/Lanolin/Calamine/Znox [Calmoseptine Ointment] 1 applic TOPICAL TID tube 10/21/17 Nystatin Powder [Mycostatin Powder] 1 applic TOPICAL 0600,2200 #1 bottle 10/21/17 ALPRAZolam [Xanax] 0.5 mg PO Q6H PRN PRN #30 tab 01/12/18 AcetaAZOLAMIDE [Diamox] 125 mg PO TID tablet 01/12/18 Acetaminophen [Tylenol] 1,000 mg PO Q8H PRN tablet 01/12/18 Cyclobenzaprine [Flexeril] 10 mg PO TID PRN PRN #90 tab 01/12/18 Diltiazem CD [Cardizem CD] 120 mg PO BID capsule 01/12/18 Gabapentin [Neurontin] 300 mg PO HS #30 cap 01/12/18 Iron Polysaccharide Complex [Ferrex 150] 150 mg PO BID #60 cap 01/12/18 Metoprolol(XL)Succ [Toprol Xl (Beta Vikki)] 25 mg PO DAILY tablet 01/12/18 Nutritional Supplement [Saul - ORANGE FLAVOR] 1 packet PO BIDCM packet 01/12/18 Glimepiride [Amaryl] 2 mg PO DAILY 06/24/18 Furosemide [Lasix] 40 mg PO BIDLX #60 tab 06/26/18 Iron Poly/Vit C [Niferex-150] 150 mg PO DAILYCM #30 capsule 06/26/18 The following prescriptions were given: Iron Poly/Vit C [Niferex-150] 150 mg PO DAILYCM #30 capsule Primary Care Physician: Valeria Mace MD [Primary Care Provider] - Please follow up with your Primary Care Physician in: in 5- 7 days Test Results: Test results from this visit will be discussed in further detail at your follow-up appointment, if applicable. Proposed Discharge Date: 06/26/18 06/26/18 1010 <Electronically signed by Sebastien Smith MD> Date Sebastien Smith MD CC: Valeria Mace MD Signed BEDSIDE GLUCOSE Collected: 06/26/2018 Status: F Source: YOLANDA 6:55 AM [facility] REPOSITORY TYPE CODE TESTS RESULT OUT OF REFERENCE UNITS RANGE LAB L501.080 70-110 mg/dL High BEDSIDE GLU 122 Result Comment: MANAGEMENT OF PATIENT CARE PER NURSING PROTOCOL Performed By: #### L501.080 #### [facility] Point of [place] [address] CBC-COMPLETE BLOOD CNT Collected: 06/26/2018 Status: F Source: YOLANDA NO DIFF 6:10 AM [facility] REPOSITORY TYPE CODE TESTS RESULT OUT OF RANGE REFERENCE UNITS LAB L100.1000 4.4-11.0 K/mm3 Normal WBC 8.5 LAB L100.1200 4.2-5.4 M/mm3 Low RBC 3.46 LAB L100.1300 12.0-15.0 g/dl Low HGB 8.5 LAB L100.1400 37-47 % Low HCT 31.7 LAB L100.1500 81-99 fL Normal MCV 91.6 LAB L100.1600 27.0-32.0 pg Low MCH 24.6 LAB L100.1700 32-36 g/gl Low MCHC 26.8 LAB L100.1810 11.6-14.6 % High RDW CV 18.6 LAB L100.1820 35.1-43.9 fl High RDW SD 61.9 LAB L100.1900 150-450 K/mm3 Normal PLT 214 LAB L100.2000 6.2-12.0 fl Normal MPV 9.2 Performed By: #### L100.0500 #### [facility] [address] [place], [address] BASIC METABOLIC Collected: 06/26/2018 Status: F Source: CELINA PROFILE (BMP) 6:10 AM [facility] REPOSITORY TYPE CODE TESTS RESULT OUT OF RANGE REFERENCE UNITS LAB L501.0100 74-106 mg/dL High GLU 121 Result Comment: Fasting Glucose result from 100 to 125 mg/dL suggests IMPAIRED HOMEOSTASIS per A.D.A. criteria. Please note revised GLUCOSE reference range effective 2017. LAB L501.1000 7-18 mg/dL Normal BUN 17 LAB L501.1100 0.55-1.02 mg/dL Normal CREAT,SERUM 0.93 Result Comment: The validity of the calculated GFR AND GFRAA in patients over 70 years has not been determined. Clinical correlation is essential. LAB L501.1110 >60 mL/min Normal EST GFR 67 Result Comment: Non- GFR Calc LAB L501.1115 >60 mL/min Normal EST GFR - AA 81 Result Comment: GFR Calc LAB L501.1255 ml/min Normal Estimated CRCL 50.25 LAB L501.1300 10-20 RATIO Normal BUN/CRE 18.3 LAB L501.2200 8.5-10 mg/dL Low .1 CA 8.1 LAB L501.5300 136-14 mmol/L Normal 5 NA 142 LAB L501.5600 3.5-5. mmol/L Normal 1 K 3.6 LAB L501.5900 98-107 mmol/L Normal CL 98 LAB L501.6100 21.0-3 mmol/L High 2.0 CO2 41.0 LAB L501.6200 5-15 Low GAP 3 Performed By: #### L500.2500 #### [facility] [address] [place], [address] BEDSIDE GLUCOSE Collected: 06/25/2018 Status: F Source: CELINA 10:09 PM [facility] REPOSITORY TYPE CODE TESTS RESULT OUT OF RANGE REFERENCE UNITS LAB L501.080 70-110 mg/dL Normal BEDSIDE GLU 108 Result Comment: MANAGEMENT OF PATIENT CARE PER NURSING PROTOCOL Performed By: #### L501.080 #### [facility] Point of Care [address] [place] [address] BEDSIDE GLUCOSE Collected: 06/25/2018 Status: F Source: CELINA 4:31 PM [facility] REPOSITORY TYPE CODE TESTS RESULT OUT OF REFERENCE UNITS RANGE LAB L501.080 70-110 mg/dL High BEDSIDE GLU 128 Result Comment: MANAGEMENT OF PATIENT CARE PER NURSING PROTOCOL Performed By: #### L501.080 #### [facility] Point of Care [address] [place] [address] 12 LEAD ELECTROCARDIOGRAM Observed: 06/25/2018 Status: F Source: CELINA 4:11 PM [facility] REPOSITORY [facility] Cardiovascular Services [address] [place] [address] 12 Lead EKG 06/24/18 0514 MR#: [id number] Acct: [id number] Name: EMILEE BASSETT Rep #: [id number] : 1965 53 From: Dagoberto Walters MD Attending Dr: Sebastien Smith MD Status: ADM IN Ordering Dr: Ninfa Stack Date: 06/24/18 Location: [facility] Sex: F C Admitted: 06/24/18 Test Reason : AM EKG Blood Pressure : / mmHG Vent. Rate : 071 BPM Atrial Rate : 071 BPM P-R Int : 172 ms QRS Dur : 104 ms QT Int : 480 ms P-R-T Axes : 046 087 060 degrees QTc Int : 521 ms Normal sinus rhythm Prolonged QT Abnormal ECG Confirmed by DAGOBERTO WALTERS MD ([id number]), order editor VICK BAH ([id number]) on 06/25/2018 4:10:55 PM Referred By: SHERRON Confirmed By:DAGOBERTO WALTERS MD 06/25/18 1610 Date Dagoberto Walters MD CC: Ninfa Stack; Sebastien Smith MD; Valeria Mace MD Signed 12 LEAD ELECTROCARDIOGRAM Observed: 06/25/2018 Status: F Source: CELINA 3:46 PM [facility] REPOSITORY [facility] Cardiovascular Services [address] [place] [id number] 12 Lead EKG 06/24/18 0059 MR#: [id number] Acct: [id number] Name: EMILEE BASSETT Rep #: [id number] : 1965 53 From: Dagoberto Walters MD Attending Dr: Sebastien Smith MD Status: ADM IN Ordering Dr: James Howe DO Date: 06/24/18 Location: [facility] Sex: F C Admitted: 06/24/18 Test Reason : SOB Blood Pressure : / mmHG Vent. Rate : 071 BPM Atrial Rate : 071 BPM P-R Int : 178 ms QRS Dur : 104 ms QT Int : 486 ms P-R-T Axes : 068 092 071 degrees QTc Int : 528 ms Normal sinus rhythm Rightward axis Incomplete right bundle branch block Prolonged QT Abnormal ECG Confirmed by DAGOBERTO WALTERS MD ([id number]), order editor VICK BAH ([id number]) on 06/25/2018 3:46:21 PM Referred By: YVONNE Confirmed By:DAGOBERTO WALTERS MD 06/25/18 1546 Date Dagoberto Walters MD CC: Sebastien Smith MD; Valeria Mace MD; James Sterling BEDSIDE GLUCOSE Collected: 06/25/2018 Status: F Source: YOLANDA 11:18 AM [facility] REPOSITORY TYPE CODE TESTS RESULT OUT OF RANGE REFERENCE UNITS LAB L501.080 70-110 mg/dL Normal BEDSIDE GLU 103 Result Comment: MANAGEMENT OF PATIENT CARE PER NURSING PROTOCOL Performed By: #### L501.080 #### [facility] Point of Care [address] [place], [place] [address] BEDSIDE GLUCOSE Collected: 06/25/2018 Status: F Source: YOLANDA 6:50 AM [facility] REPOSITORY TYPE CODE TESTS RESULT OUT OF RANGE REFERENCE UNITS LAB L501.080 70-110 mg/dL Normal BEDSIDE GLU 99 Result Comment: MANAGEMENT OF PATIENT CARE PER NURSING PROTOCOL Performed By: #### L501.080 #### [facility] Point of Care [address] [place], [place] [address] CBC-COMPLETE BLOOD CNT Collected: 06/25/2018 Status: F Source: YOLANDA NO DIFF 5:55 AM [facility] REPOSITORY TYPE CODE TESTS RESULT OUT OF RANGE REFERENCE UNITS LAB L100.1000 4.4-11.0 K/mm3 Normal WBC 6.4 LAB L100.1200 4.2-5.4 M/mm3 Low RBC 2.92 LAB L100.1300 12.0-15.0 g/dl Low HGB 7.2 LAB L100.1400 37-47 % Low HCT 27.9 LAB L100.1500 81-99 fL Normal MCV 95.5 LAB L100.1600 27.0-32.0 pg Low MCH 24.7 LAB L100.1700 32-36 g/gl Low MCHC 25.8 LAB L100.1810 11.6-14.6 % High RDW CV 18.7 LAB L100.1820 35.1-43.9 fl High RDW SD 62.5 LAB L100.1900 150-450 K/mm3 Normal PLT 214 LAB L100.2000 6.2-12.0 fl Normal MPV 9.3 Performed By: #### L100.0500 #### [facility] [address] [place], [address] BASIC METABOLIC Collected: 06/25/2018 Status: F Source: YOLANDA PROFILE (BMP) 5:55 AM [facility] REPOSITORY TYPE CODE TESTS RESULT OUT OF RANGE REFERENCE UNITS LAB L501.0100 74-106 mg/dL Normal GLU 92 Result Comment: Please note revised GLUCOSE reference range effective 2017. LAB L501.1000 7-18 mg/dL Normal BUN 12 LAB L501.1100 0.55-1.02 mg/dL Normal CREAT,SERUM 0.94 Result Comment: The validity of the calculated GFR AND GFRAA in patients over 70 years has not been determined. Clinical correlation is essential. LAB L501.1110 >60 mL/min Normal EST GFR 66 Result Comment: Non- GFR Calc LAB L501.1115 >60 mL/min Normal EST GFR - AA 80 Result Comment: GFR Calc LAB L501.1255 ml/min Normal Estimated CRCL 49.72 LAB L501.1300 10-20 RATIO Normal BUN/CRE 12.8 LAB L501.2200 8.5-10 mg/dL Low .1 CA 7.8 LAB L501.5300 136-14 mmol/L Normal 5 NA 145 LAB L501.5600 3.5-5. mmol/L Low 1 K 3.1 LAB L501.5900 98-107 mmol/L Normal CL 102 LAB L501.6100 21.0-3 mmol/L High 2.0 CO2 39.0 LAB L501.6200 5-15 Low GAP 4 Performed By: #### L500.2500, L501.5200 #### [facility] [address] [place], [address] MAGNESIUM Collected: 06/25/2018 Status: F Source: YOLANDA 5:55 AM [facility] REPOSITORY TYPE CODE TESTS RESULT OUT OF RANGE REFERENCE UNITS LAB L501.5200 1.6-2.6 mg/dL Normal MG 2.2 Performed By: #### L500.2500, L501.5200 #### [facility] [address] [place], [address] BEDSIDE GLUCOSE Collected: 06/24/2018 Status: F Source: CELINA 10:48 PM [facility] REPOSITORY TYPE CODE TESTS RESULT OUT OF REFERENCE UNITS RANGE LAB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 encouraged, nutrition consulted. (5) Hypertension: Continue home regimen Cardizem, metoprolol, PRN hydralazine. (6) Hyperlipidemia: Not on statin regimen, add w/ pending AM FLP. (7) Chronic BL LE Lymphedema, PVD: Elevation, BL LE MARBIN wraps. (8) Anxiety and Depression: Continue home regimen Xanax however would benefit from consideration of SSRI. (9) RICKI: CPAP q HS. (10) Diabetes mellitus type II with neuropathy: Regimen not listed, hemoglobin A1c pending, ADA diet, accu checks w/ ISS, nutrition consultation for education and teaching. (11) GERD: PPI. (12) DVT Prophylaxis: SCDs, lovenox. Code Visit Inpatient E AND M: [id number] Init Hosp L3 06/24/18 0336 <Electronically signed by Ninfa Stack > Date Ninfa Stack Cosigner Signature: Date (if applicable) CC: Ninfa Stack; Valeria Mace MD Signed EMERGENCY DEPARTMENT Observed: 06/24/2018 Status: F Source: [place] SUMMARY 2:51 AM [facility] REPOSITORY [facility] Medical Records Department [address] [place] [id number] Emergency Department Summary 06/24/18 0206 MR#: [id number] Acct: [id number] Name: EMILEE BASSETT Rep #: [id number] : 1965 53 From: James Zendejas PCP: Valeria Mace MD Status: ADM IN - ER Visit Summary Date of Service: 06/24/18 Chief Complaint: Dyspnea, cough History of Present Illness: The patient is a 53 F patient presents from home increasing shortness of breath over the past week. History of CHF, reports increased leg swelling. Complains of orthopnea and dyspnea with exertion. Mild productive sputum white in color over the past week. Complains of chills. Decreased urine output. Patient states she wears oxygen at night. However increasing oxygen demand during the day. Does not check her weight. History of chronic lymphedema, she emanates with a walker. Reports unable to get around over the last 2 days. No exertional chest pains or tightness. Physical Examination: General: Alert and oriented 3, BMI 83, on oxygen in no acute distress HEENT: Normocephalic, atraumatic. Moist mucosa membranes Neck: supple, nontender. Cardiovascular: Regular rate and rhythm, no murmurs Respiratory: Diminished breath sounds Abdomen: Soft, nontender, nondistended Rectal: Nonthrombosed hemorrhoids, brown stools. Extremities: Nontender, significant lymphedema bilaterally pulses intact 4 Neuro: no focal neurological deficits. Test Results: EKG sinus rate [address] or T wave changes. White count 6.6 hemoglobin 7.4 platelets 190. Potassium 3.5 creatinine 0.89. UA normal. BNP 244, troponin less than 0.015. Chest x-ray CHF findings per radiology. Emergency Department Course and Treatment: Patient in no acute distress stable on oxygen. Chronic lymphedema there is no pitting. History reports increasing oxygen demand. Workup initiated. Chest x-ray does note concerns for CHF. Given Lasix IV. EKG is sinus. Hemoglobin 7.4 most recent was 9.5 she was 6.7 back in November 2017. Discussed the findings with patient she states she was given blood transfusion at that time. States occasional blood in her stools, rectal examination notes brown stools, Hemoccult was pending. Concerns for CHF and increasing oxygen demand along with potential symptomatic anemia will discuss with hospitalist for admission for further management. Discussed with Dr. Stack, will order for 1 unit of blood. Will admit for inpatient management. Treatment Plan: [] Disposition: Admission Impression: 1. CHF exacerbation 2. Anemia This note was generated with [employer] dictation software. It may contain incorrect words, spelling, and punctuation that were not noted in review of the chart prior to signing ED Disposition - Plan for ED Patient: Disposition: Acute Care Hospital [facility] Chief Complaint: Shortness of Breath Diagnosis: CHF exacerbation, Anemia Referrals: Valeria Mace MD [Primary Care Provider] - What to do if you have Problems For any increased pain, shortness of breath, bleeding, nausea or vomiting, chest pain, or any unexpected problems, contact your Primary Care Provider. Call [facility] ([phone]) or report to the closest Emergency Room. Call 911 if necessary. 06/24/18 8822 <Electronically signed by James Zendejas> Date James Zendejas Cosigner Signature (If Indicated): Date CC: Valeria Mace MD TYPE AND SCREEN Collected: 06/24/2018 Status: F Source: CELINA 2:43 [facility] REPOSITORY Order Comment: CMV NEG? N Number of units to transfuse: 1 Is the EBL >/= 1000ml in adults or >/= 12ml/kg in children? Y Reason for Ordering Blood: Acute Are the blood/blood products to be transfused? Y Is the patient having/had surgery? N CMV NEG?* N Give When? When Ready Irradiated? N Leukodepleted? Y Reason for Type AND Screen/Red Cells: ANEMIA TYPE CODE TESTS RESULT OUT OF RANGE REFERENCE UNITS LAB B10.0800 O Normal BLOOD TYPE GEL NEGATIVE LAB B100.4000 High Antibody POSITIVE Screen Performed By: #### B101.7450, B101.1999, B102.1500 #### [facility] [address] [facility] [place], [address] ANTIBODY PANEL ID Collected: 06/24/2018 Status: F Source: CELINA 2:43 [facility] REPOSITORY Order Comment: CMV NEG? N Number of units to transfuse: 1 Is the EBL >/= 1000ml in adults or >/= 12ml/kg in children? Y Reason for Ordering Blood: Acute Are the blood/blood products to be transfused? Y Is the patient having/had surgery? N CMV NEG?* N Give When? When Ready Irradiated? N Leukodepleted? Y Reason for Type AND Screen/Red Cells: ANEMIA TYPE CODE TESTS RESULT OUT OF REFERENCE UNITS RANGE LAB B101.2000 ANTIBODY PANEL ANTI-K Performed By: #### B101.7450, B101.1999, B102.1500 #### [facility] [address] [place], [place], [address] ANTIGEN K (VELASQUEZ) Collected: 06/24/2018 Status: F Source: [place] SERIES 2 2:43 AM [facility] REPOSITORY Order Comment: CMV NEG? N Number of units to transfuse: 1 Is the EBL >/= 1000ml in adults or >/= 12ml/kg in children? Y Reason for Ordering Blood: Acute Are the blood/blood products to be transfused? Y Is the patient having/had surgery? N CMV NEG?* N Give When? When Ready Irradiated? N Leukodepleted? Y Reason for Type AND Screen/Red Cells: ANEMIA TYPE CODE TESTS RESULT OUT OF REFERENCE UNITS RANGE LAB B102.5450 K ANTIGEN ID ANTIGEN: NEGATIVE Performed By: #### B101.7450, B101.2000, B102.1500 #### [facility] [address] [place], [place], [address] RC Collected: 06/24/2018 Status: F Source: [place] 2:43 AM [facility] REPOSITORY TYPE CODE TESTS RESULT OUT OF REFERENCE UNITS RANGE LAB U100.0000 [id number] TRANSFUSED PRODUCT: T AND S with Crossmatch, Red Cells COUNT: 1 Performed By: #### U100.0000 #### [facility] - refer to report for specific site RC Collected: 06/24/2018 Status: F Source: [place] 2:43 AM [facility] REPOSITORY TYPE CODE TESTS RESULT OUT OF REFERENCE UNITS RANGE LAB U100.0000 [id number] TRANSFUSED PRODUCT: T AND S with Crossmatch, Red Cells COUNT: 1 Performed By: #### U100.0000 #### [facility] - refer to report for specific site Observed: 06/24/2018 Status: F Source: [place] STOOL OCCULT BLOOD 1:45 AM [facility]OB REPOSITORY Order Date: 06/24/18 STOB iFOB Occult Blood Negative Performed By: #### M100.7900 #### [facility] [address] [facility] [place], [place], [address] URINALYSIS, COMPLETE Collected: 06/24/2018 Status: F Source: [place]DA 1:15 AM [facility] REPOSITORY Order Comment: Order Date: 06/24/18 How was Urine Obtained? CLEAN CATCH TYPE CODE TESTS RESULT OUT OF RANGE REFERENCE UNITS LAB L400.3000 Yellow COLOR Normal Yellow LAB L400.3050 Clear Normal CLARITY Clear LAB L400.3200 Normal mg/dl Normal GLUCOSE, UR Normal LAB L400.3300 Negative mg/dL Normal BILIRUBIN URINE Negative LAB L400.3400 Negative mg/dl Normal KETONE UR Negative LAB L400.3465 1.002-1.030 Normal SP.GR. DIPSTX 1.015 LAB L400.3550 5.0 - 8.0 pH UR Normal 6.0 LAB L400.3600 Negative mg/dl High PROT 15 DIPSTX LAB L400.3700 Normal mg/dl Normal UROBILI Normal LAB L400.3750 Negative Normal NITRITE UR Negative LAB L400.3780 Negative /ul Normal OCCULT BLOOD-UR Negative LAB L400.3800 Negative /ul LEUK Normal ESTERASE Negative LAB L400.4050 0-5 /hpf WBC 0 Normal SEEN LAB L400.4100 0-5 /hpf 0 Normal RBC-UA SEEN LAB L400.4150 5-10 /hpf SQUAM Normal EPI 0-5 SEEN LAB L400.4300 None Seen /hpf 0 Normal BACTERIA SEEN LAB L400.4350 <or=2+ /hpf 0 Normal MUCUS, URINE SEEN Performed By: #### L400.0001 #### [facility] [address] [place], [address] CBC W/DIFF, AUTOMATED Collected: 06/24/2018 Status: F Source: [place] 12:30 AM [facility] REPOSITORY TYPE CODE TESTS RESULT OUT OF RANGE REFERENCE UNITS LAB L100.1000 4.4-11.0 K/mm3 Normal WBC 6.6 LAB L100.1200 4.2-5.4 M/mm3 Low RBC 3.08 LAB L100.1300 12.0-15.0 g/dl Low HGB 7.4 LAB L100.1400 37-47 % Low HCT 28.6 LAB L100.1500 81-99 fL Normal MCV 92.9 LAB L100.1600 27.0-32.0 pg Low MCH 24.0 LAB L100.1700 32-36 g/gl Low MCHC 25.9 LAB L100.1810 11.6-14.6 % High RDW CV 18.9 LAB L100.1820 35.1-43.9 fl High RDW SD 63.8 LAB L100.1900 150-450 K/mm3 Normal PLT 190 LAB L100.2000 6.2-12.0 fl Normal MPV 9.0 LAB L100.2100 47-70 % High NEUT% 75.9 LAB L100.2200 19-41 % Low LY% 12.7 LAB L100.2300 0-10 % Normal MONO% 5.6 LAB L100.2400 0-5 % High EO% 5.4 LAB L100.2500 0-1 % Normal BASO% 0.2 LAB L100.2550 0.0-0.9 % Normal IM GRAN % 0.200 Result Comment: IG% - Immature Granulocytes (promyelocytes, myelocytes and metamyelocytes) > 1% indicates that a LEFT SHIFT is Present. LAB L100.2620 2.0-7.7 X10 3/uL Normal Absolute Neut 5.0 LAB L100.2720 0.83-4.51 X10 3/ul Normal Absolute Lymph 0.84 Performed By: #### L100.0100 #### [facility] [address] [place], [place], [address] BASIC METABOLIC Collected: 06/24/2018 Status: F Source: [place] PROFILE (BMP) 12:30 AM [facility] REPOSITORY TYPE CODE TESTS RESULT OUT OF RANGE REFERENCE UNITS LAB L501.0100 74-106 mg/dL Normal GLU 103 Result Comment: Fasting Glucose result from 100 to 125 mg/dL suggests IMPAIRED HOMEOSTASIS per A.D.A. criteria. Please note revised GLUCOSE reference range effective 2017. LAB L501.1000 7-18 mg/dL Normal BUN 9 LAB L501.1100 0.55-1.02 mg/dL Normal CREAT,SERUM 0.89 Result Comment: The validity of the calculated GFR AND GFRAA in patients over 70 years has not been determined. Clinical correlation is essential. LAB L501.1110 >60 mL/min Normal EST GFR 71 Result Comment: Non- GFR Calc LAB L501.1115 >60 mL/min Normal EST GFR - AA 86 Result Comment: GFR Calc LAB L501.1255 ml/min Normal Estimated CRCL 52.51 LAB L501.1300 10-20 RATIO Normal BUN/CRE 10.1 LAB L501.2200 8.5-10 mg/dL Low .1 CA 7.5 LAB L501.5300 136-14 mmol/L Normal 5 NA 143 LAB L501.5600 3.5-5. mmol/L Normal 1 K 3.5 LAB L501.5900 98-107 mmol/L Normal CL 107 LAB L501.6100 21.0-3 mmol/L High 2.0 CO2 33.0 LAB L501.6200 5-15 Low GAP 3 Performed By: #### L500.2500, L501.4010 #### [facility] [address] [place], [address] TROPONIN-I Collected: 06/24/2018 Status: F Source: [place] 12:30 AM [facility] REPOSITORY TYPE CODE TESTS RESULT OUT OF RANGE REFERENCE UNITS LAB L501.4010 <0.045 ng/mL Normal < 0.015 TROPONIN-I Result Comment: TROPONIN-I EXPECTED VALUES <0.045 Negative 0.045 - 0.590 Consistent with Cardiac Damage > OR = 0.600 Critical Value Not every elevated troponin is indicative of MN. These values should be used with clinical judgement in examining the patient's clinical picture for diagnosis. To establish a diagnosis of MN versus myocardial injury, there must be a demonstrated rise and/or fall in the troponin values, in addition to ischemic symptoms, EKG changes, new regional wall motion abnormality, and/or angiographical evidence. PLEASE NOTE: REFERENCE RANGES EDITED 17 Performed By: #### L500.2500, L501.4010 #### [facility] [address] [place], [address] BNP,B-TYPE NATRIURETIC Collected: 06/24/2018 Status: F Source: [place]OL[place]DA PEPTIDE 12:30 AM [facility] REPOSITORY TYPE CODE TESTS RESULT OUT OF RANGE REFERENCE UNITS LAB L503.6620 0-100 pg/mL High B-TYPE 244.0 PAULINO PEP Performed By: #### L503.6620 #### [facility] [address] [place], [address] MAGNESIUM Collected: 06/24/2018 Status: F Source: [place]DA 12:30 AM [facility] REPOSITORY TYPE CODE TESTS RESULT OUT OF RANGE REFERENCE UNITS LAB L501.5200 1.6-2.6 mg/dL Normal MG 2.0 Performed By: #### L501.5200, L501.9520 #### [facility] [address] [place], [address] THYROID STIM HORMONE Collected: 06/24/2018 Status: F Source: YOL[place]DA (TSH) 12:30 AM [facility] REPOSITORY TYPE CODE TESTS RESULT OUT OF RANGE REFERENCE UNITS LAB L501.9520 0.358-3.74 uIU/mL High TSH 5.76 Performed By: #### L501.5200, L501.9520 #### [facility] [address] [facility] [place], [address] CHEST 1 VIEW Observed: 06/24/2018 Status: F Source: YOLANDA (PORTABLE) 12:29 AM [facility] REPOSITORY [facility] Imaging Services [address] [place] [address] Chest 1 View (Portable) MR#: [id number] Acct: [id number] Name: EMILEE BASSETT Rep #: [id number] : 1965 F 53 From: Marcel Aden MD PCP: Valeria Mace MD Status: REG ER Study: Chest 1 View (Portable) Date of Exam: 06/24/18 Exam# [id number] Ordering Dr: James Howe DO STUDY: X-RAY CHEST REASON FOR EXAM: Female, 53 years old. Shortness of breath. TECHNIQUE: Single AP portable view of the chest. COMPARISON: 11/10/2017. FINDINGS: Diffuse increased density throughout the mid and lower lung bailey bilaterally. Some of this is likely to be an artifact related to the patient's body habitus and prominent overlying soft tissues. There are some increased vascular prominence and acute CHF is also thought to be likely. There is no evidence for focal pulmonary infiltrate. There is no demonstrated pleural abnormality. There is mild cardiac enlargement. Normal mediastinum and negra. Normal visualized pulmonary arteries. Normal visualized aortic arch and descending thoracic aorta. There are degenerative changes of the visualized thoracic spine. There is degenerative osteoarthritis of the bilateral shoulders. There is no demonstrated abnormality of the visualized soft tissue structures of the upper abdomen. RAD/Chest 1 View (Portable) IMPRESSION: Acute CHF Mild cardiomegaly. Electronically Signed: Marcel Aden MD at 1:44 EST , Service support , CC: Valeria Mace MD; James Howe Shank Rander: Signed PROGRESS Observed: 06/15/2018 Status: COMPLETED Source: [place] 12:29 PM [facility] REPOSITORY HNO ID: [id number] Author: Cedrick Vega) Service: (none) Author Type: Registered Nurse Type: Progress Notes Filed: 06/15/2018 12:56 PM Note Text: PRIMARY CARE COORDINATION FOLLOW-UP NOTE Provider Action/FYI Noted, Thank You Patient identified by name and date of . YES Stunt Man plan for next outreach: Health Maintenance and early symptom awareness and prevention of complications Signature Kait Philip RN June 15, 2018 PROGRESS Observed: 06/15/2018 Status: COMPLETED Source: [place] 10:34 AM [facility] REPOSITORY HNO ID: [id number] Author: Joan Cortez Service: (none) Author Type: Medical Health Researcher Type: Progress Notes Filed: 06/15/2018 10:36 AM Note Text: [facility] QUICKNOTE Provider Action/FYI: mailed unable to reach letter to the patient.(certified mail) per Kait Philip. Patient identified by name and . Joan Cortez MA PROGRESS Observed: 06/15/2018 Status: COMPLETED Source: [place] 10:26 AM [facility] REPOSITORY HNO ID: [id number] Author: Joan Cortez Service: (none) Author Type: Medical Health Researcher Type: Progress Notes Filed: 06/15/2018 10:30 AM Note Text: [facility] QUICKNOTE Provider Action/FYI: Mailed unable to reach letter to the patient.( Certified mail) per Kait Philip RN Patient identified by name and . Joan Cortez MA PROGRESS Observed: 06/15/2018 Status: COMPLETED Source: [place] 10:05 AM [facility] REPOSITORY HNO ID: [id number] Author: Joan Cortez Service: (none) Author Type: Medical Health Researcher Type: Progress Notes Filed: 06/15/2018 10:36 AM Note Text: [facility] QUICKNOTE Provider Action/FYI: Called patient, no answer, left message on her voice mail to return a call. Patient identified by name and . Joan Cortez MA CNPTOUTREACH Observed: 06/15/2018 Status: COMPLETED Source: [place] 12:00 AM [facility] REPOSITORY Patient Outreach (FAMPWS) EMILEE BASSETT ([id number]) 1965 F Date Time Provider Department 06/15/18 JOAN CORTEZ) MARKUSWS During your visit today, we recorded the following information about you: Joan Cortez MA 06/15/2018 10:36 AM Signed [facility] KENNEYE Provider Action/FYI: Called patient, no answer, left message on her voice mail to return a call. Patient identified by name and . DEMETRA Delgado MA 06/15/2018 10:36 AM Signed [facility] KIARANOTE Provider Action/FYI: mailed unable to reach letter to the patient.(certified mail) per Kait Philip. Patient identified by name and . DEMETRA Delgado RN 06/15/2018 12:56 PM Addendum PRIMARY CARE COORDINATION FOLLOW-UP NOTE Provider Action/FYI Noted, Thank You Patient identified by name and date of . YES Stunt Man plan for next outreach: Health Maintenance and early symptom awareness and prevention of complications Signature Kait Philip RN June 15, 2018 Allergies As of Date: 06/15/2018 Noted Allergy Reaction LATEX 01/18/2009 7 - Swelling BLUEBERRY 02/02/2016 6 - Diarrhea LACTOSE INTOLERANCE (LACTASE) 03/16/2007 MUSHROOM 10/24/2015 12 - Shortness of Breath STRAWBERRY 10/24/2015 4 - Hives Date Reviewed: 02/06/2017 Reviewed by: Jaylene Frias - Fully Assessed Reason for Visit: Wet Process [place] [facility] [[id number]] Prescriptions as of 06/15/2018 Sig: METOPROLOL SUCCINATE ER 25 MG* Take 1 tablet by mouth once d* GLIMEPIRIDE 2 MG TABLET Take 1 tablet by mouth daily * GABAPENTIN 300 MG CAPSULE Take 1 capsule by mouth daily* ACETAZOLAMIDE 125 MG TABLET Take 1 tablet by mouth three * PANTOPRAZOLE 40 MG TABLET,DEL* Take 1 tablet by mouth once d* CYCLOBENZAPRINE 10 MG TABLET Take 1 tablet by mouth three * TRAMADOL 50 MG TABLET Take 1 tablet by mouth three * FUROSEMIDE 20 MG TABLET Take 1 tablet by mouth twice * DILTIAZEM SR 240 MG 24 HR CAP Take 1 capsule by mouth once * ALPRAZOLAM 0.5 MG TABLET Take 1 tablet by mouth every * ACETAMINOPHEN 500 MG TABLET Take 2 tablets by mouth every* DILTIAZEM SR 120 MG 24 HR CAP Take 1 capsule by mouth twice* ACETAZOLAMIDE 250 MG TABLET Take 1 tablet by mouth three * GUAIFENESIN ER 1,200 MG TABLE* Take 1 tablet by mouth twice * NYSTATIN 100,000 UNIT/GRAM TO* Apply 1 application to affect* MENTHOL 0.44 %-ZINC OXIDE 20.* Apply 1 application to affect* POLYETHYLENE GLYCOL 3350 17 G* Take 1 Packet by mouth once d* ACETAMINOPHEN 325 MG TABLET Take 2 tablets by mouth every* OXYBUTYNIN CHLORIDE ER 15 MG * Take 1 tablet by mouth once d* DICYCLOMINE 20 MG TABLET Take 1 tablet by mouth every * LISINOPRIL 5 MG TABLET Take 1 tablet by mouth once d* Patient not taking: Reported on 02/25/2018 NIFEREX-150 ORAL Take 150 mg by mouth once terry* APIXABAN 5 MG TABLET Take by mouth once daily. ALBUTEROL SULFATE HFA 90 MCG/* Inhale 2 Puffs as instructed * GLUCOSE GEL ORAL Take by mouth as needed (1 d* OMEPRAZOLE 20 MG CAPSULE,HOANG* Take 1 capsule by mouth once * Patient not taking: Reported on 02/25/2018 MELOXICAM 15 MG TABLET Take 1 tablet by mouth once d* COMPOUNDED PRESCRIPTION Bariatric Hospital Bed. BUPROPION XL 150 MG TAB Take 1 tablet by mouth once d* Patient not taking: Reported on 02/25/2018 FUROSEMIDE 80 MG TABLET Take 1 tablet by mouth twice * Patient not taking: Reported on 02/25/2018 POTASSIUM CHLORIDE 20 MEQ ORA* Take 20 mEq by mouth twice da* INSULIN DETEMIR (U-100) 100 U* 10 units daily at bedtime Patient not taking: Reported on 02/25/2018 HYDROCHLOROTHIAZIDE 25 MG TAB* Take 1 tablet by mouth once d* Patient not taking: Reported on 02/25/2018 BLOOD-GLUCOSE METER KIT 1 Each as needed. BLOOD SUGAR DIAGNOSTIC STRIPS Test blood sugar(s) 1 times d* LANCETS Test blood sugar(s) 1 times * NAPROXEN SODIUM 220 MG TABLET Take 1 tablet by mouth twice * Patient not taking: Reported on 02/25/2018 ALBUTEROL SULFATE HFA 90 MCG/* Inhale 2 Puffs as instructed * * THERAPEUTIC MULTIVITAMIN TABL* Take one(1) tablet daily. Problem List As Of Date 06/15/2018 Noted Resolved BENIGN HYPERTENSION [I10] INVALID FOR* ASTHMA UNSPECIFIED [J45.909] INVALID FOR* Obesity, Class III, BMI 40-49.9 (morbid obesity*INVALID FOR* GENERAL OSTEOARTHROSIS [M15.9] INVALID FOR* LUMBAGO [M54.5] INVALID FOR* Pure Hyperglyceridemia [E78.1] INVALID FOR* Cholelithiasis [K80.20] INVALID FOR* Sleep apnea [G47.30] INVALID FOR* Leg pain, bilateral [M79.604, M79.605] INVALID FOR* Mixed hyperlipidemia [E78.2] INVALID FOR* Type 2 diabetes mellitus without complication (*INVALID FOR* Congestive heart failure (HCC) [I50.9] INVALID FOR* Encounter Status:Closed by JOAN CORTEZ on 06/15/18 PROGRESS Observed: 05/25/2018 Status: COMPLETED Source: [place] 4:15 PM [facility] REPOSITORY HNO ID: [id number] Author: Cedrick Carballo (Rn) Service: (none) Author Type: Registered Nurse Type: Progress Notes Filed: 05/25/2018 4:28 PM Note Text: PRIMARY CARE COORDINATION FOLLOW-UP NOTE Provider Action/FYI Noted Patient identified by name and date of . YES Stunt Man plan for next outreach: Early symptom awareness and communication to Pcp / SENIOR SOFTWARE QUALITY ANALYST to prevent complications Signature Kait Philip RN May 25, 2018 PROGRESS Observed: 05/25/2018 Status: COMPLETED Source: [place] 2:44 PM [facility] REPOSITORY HNO ID: [id number] Author: Joan Moreland) Andrew Service: (none) Author Type: Medical Health Researcher Type: Progress Notes Filed: 05/25/2018 4:28 PM Note Text: POPULATION HEALTH SINK[facility] PULLER QUICKNOTE Provider Action/FYI: Called patient, no answer Left message on voice mail. Patient identified by name and . DEMETRA Delgado Observed: 05/25/2018 Status: COMPLETED Source: [place] 12:00 AM [facility] REPOSITORY Patient Outreach (FAMPWS) EMILEE BASSETT ([id number]) 1965 F Date Time Provider Department 05/25/18 JOAN CORTEZ) DHRUV During your visit today, we recorded the following information about you: Joan Cortez MA 05/25/2018 4:28 PM Signed [facility] [place] Provider Action/FYI: Called patient, no answer Left message on voice mail. Patient identified by name and . DEMETRA Delgado RN 05/25/2018 4:28 PM Signed PRIMARY CARE COORDINATION FOLLOW-UP NOTE Provider Action/FYI Noted Patient identified by name and date of . YES Stunt Man plan for next outreach: Early symptom awareness and communication to Pcp / SENIOR SOFTWARE QUALITY ANALYST to prevent complications Signature Kait Philip RN May 25, 2018 Joan Cortez MA 06/15/2018 10:30 AM Signed [facility] RONY Provider Action/FYI: Mailed unable to reach letter to the patient.( Certified mail) per Kait Philip RN Patient identified by name and . Joan Cortez MA Allergies As of Date: 05/25/2018 Noted Allergy Reaction LATEX 01/18/2009 7 - Swelling BLUEBERRY 02/02/2016 6 - Diarrhea LACTOSE INTOLERANCE (LACTASE) 03/16/2007 MUSHROOM 10/24/2015 12 - Shortness of Breath STRAWBERRY 10/24/2015 4 - Hives Date Reviewed: 02/06/2017 Reviewed by: Jaylene Frias - Fully Assessed Reason for Visit: Wet Process [place] [facility] Chronic Care [3612] Prescriptions as of 05/25/2018 Sig: METOPROLOL SUCCINATE ER 25 MG* Take 1 tablet by mouth once d* GLIMEPIRIDE 2 MG TABLET Take 1 tablet by mouth daily * GABAPENTIN 300 MG CAPSULE Take 1 capsule by mouth daily* ACETAZOLAMIDE 125 MG TABLET Take 1 tablet by mouth three * PANTOPRAZOLE 40 MG TABLET,DEL* Take 1 tablet by mouth once d* CYCLOBENZAPRINE 10 MG TABLET Take 1 tablet by mouth three * TRAMADOL 50 MG TABLET Take 1 tablet by mouth three * FUROSEMIDE 20 MG TABLET Take 1 tablet by mouth twice * DILTIAZEM SR 240 MG 24 HR CAP Take 1 capsule by mouth once * ALPRAZOLAM 0.5 MG TABLET Take 1 tablet by mouth every * ACETAMINOPHEN 500 MG TABLET Take 2 tablets by mouth every* DILTIAZEM SR 120 MG 24 HR CAP Take 1 capsule by mouth twice* ACETAZOLAMIDE 250 MG TABLET Take 1 tablet by mouth three * GUAIFENESIN ER 1,200 MG TABLE* Take 1 tablet by mouth twice * NYSTATIN 100,000 UNIT/GRAM TO* Apply 1 application to affect* MENTHOL 0.44 %-ZINC OXIDE 20.* Apply 1 application to affect* POLYETHYLENE GLYCOL 3350 17 G* Take 1 Packet by mouth once d* ACETAMINOPHEN 325 MG TABLET Take 2 tablets by mouth every* OXYBUTYNIN CHLORIDE ER 15 MG * Take 1 tablet by mouth once d* DICYCLOMINE 20 MG TABLET Take 1 tablet by mouth every * LISINOPRIL 5 MG TABLET Take 1 tablet by mouth once d* Patient not taking: Reported on 02/25/2018 NIFEREX-150 ORAL Take 150 mg by mouth once terry* APIXABAN 5 MG TABLET Take by mouth once daily. ALBUTEROL SULFATE HFA 90 MCG/* Inhale 2 Puffs as instructed * GLUCOSE GEL ORAL Take by mouth as needed (1 d* OMEPRAZOLE 20 MG CAPSULE,HOANG* Take 1 capsule by mouth once * Patient not taking: Reported on 02/25/2018 MELOXICAM 15 MG TABLET Take 1 tablet by mouth once d* COMPOUNDED PRESCRIPTION Bariatric Hospital Bed. BUPROPION XL 150 MG TAB Take 1 tablet by mouth once d* Patient not taking: Reported on 02/25/2018 FUROSEMIDE 80 MG TABLET Take 1 tablet by mouth twice * Patient not taking: Reported on 02/25/2018 POTASSIUM CHLORIDE 20 MEQ ORA* Take 20 mEq by mouth twice da* INSULIN DETEMIR (U-100) 100 U* 10 units daily at bedtime Patient not taking: Reported on 02/25/2018 HYDROCHLOROTHIAZIDE 25 MG TAB* Take 1 tablet by mouth once d* Patient not taking: Reported on 02/25/2018 BLOOD-GLUCOSE METER KIT 1 Each as needed. BLOOD SUGAR DIAGNOSTIC STRIPS Test blood sugar(s) 1 times d* LANCETS Test blood sugar(s) 1 times * NAPROXEN SODIUM 220 MG TABLET Take 1 tablet by mouth twice * Patient not taking: Reported on 02/25/2018 ALBUTEROL SULFATE HFA 90 MCG/* Inhale 2 Puffs as instructed * * THERAPEUTIC MULTIVITAMIN TABL* Take one(1) tablet daily. Problem List As Of Date 05/25/2018 Noted Resolved BENIGN HYPERTENSION [I10] INVALID FOR* ASTHMA UNSPECIFIED [J45.909] INVALID FOR* Obesity, Class III, BMI 40-49.9 (morbid obesity*INVALID FOR* GENERAL OSTEOARTHROSIS [M15.9] INVALID FOR* LUMBAGO [M54.5] INVALID FOR* Pure Hyperglyceridemia [E78.1] INVALID FOR* Cholelithiasis [K80.20] INVALID FOR* Sleep apnea [G47.30] INVALID FOR* Leg pain, bilateral [M79.604, M79.605] INVALID FOR* Mixed hyperlipidemia [E78.2] INVALID FOR* Type 2 diabetes mellitus without complication (*INVALID FOR* Congestive heart failure (HCC) [I50.9] INVALID FOR* Letter Text Family Medicine [place] [address] [facility] [address] Dept: [phone] Joan Cortez MA, Population Health M.A. June 15, 2018 Emilee Bassett [address] [place] [address] Dear Jhon Danyelle In an effort to serve your healthcare needs, it has come to the attention of Valeria Mace MD, your Primary Care Provider, that you are overdue for routine health care. We've attempted to contact you and have been unsuccessful. Please call the office at [phone] to schedule an appointment for Follow Up. Health Maintenance Due: URINE ALBUMIN:CREATININE RATIO due on 1975 BP CONTROLLED (<130/80) due on 1983 DTAP,TDAP,TD(1 - Tdap) due on 1984 DIABETIC FOOT EXAM due on 01/28/2017 INFLUENZA(1) due on 02/07/2018 HBA1C due on 04/05/2018 PAP EVERY 5 YEARS due on 09/14/2018 HPV EVERY 5 YEARS due on 09/14/2018 If any of these routine health care items were completed by an outside facility, please have that office fax the results to [phone] Attn: Valeria Mace MD or bring the records with you to your appointment. We will gladly update your record. If you have any questions, please feel free to call the office at [phone] or message us via [employer]. Thank you for choosing the [facility]. Sincerely, Joan Cortez MA, Population Health M.A. (electronically signed to expedite mailing) Encounter Status:Closed by KAIT PHILIP on 05/25/18 PROGRESS Observed: 05/20/2018 Status: COMPLETED Source: [place] 3:41 PM [facility] REPOSITORY HNO ID: [id number] Author: Cedrick Carballo (Demar) Service: (none) Author Type: Registered Nurse Type: Progress Notes Filed: 05/20/2018 3:42 PM Note Text: PRIMARY CARE COORDINATION QUICK NOTE Provider Action/FYI Noted, Thank You Patient identified by name and date . Kait Philip RN May 20, 2018 3:41 PM PROGRESS Observed: 05/19/2018 Status: COMPLETED Source: [place] 11:07 AM [facility] REPOSITORY HNO ID: [id number] Author: Joan Cortez Service: (none) Author Type: Medical Health Researcher Type: Progress Notes Filed: 05/19/2018 11:09 AM Note Text: POPULATION [facility] S[facility] PULLER QUICKNOTE Provider Action/f Called Patient no answer, Left voice mail message to return a call to [phone] Patient identified by name and . 65 Joan Cortez MA PROGRESS Observed: 05/18/2018 Status: COMPLETED Source: [place] 2:39 PM [facility] REPOSITORY HNO ID: [id number] Author: Joan Cortez Service: (none) Author Type: Medical Health Researcher Type: Progress Notes Filed: 05/18/2018 2:40 PM Note Text: POPULATION [facility] S[facility] PULLER QUICKNOTE Provider Action/FYI: Called patient. No answer left voice mail meesage Patient identified by name and . Joan Cortez MA PROGRESS Observed: 04/24/2018 Status: COMPLETED Source: [place] 2:29 PM [facility] REPOSITORY HNO ID: [id number] Author: Joan Cortez Service: (none) Author Type: Medical Health Researcher Type: Progress Notes Filed: 04/24/2018 2:53 PM Note Text: PRIMARY CARE COORDINATION PHMA LONGITUDINAL MAINTENANCE MONITORING PHMA Outreach: 2 month PCC Action/FYI: Was unable to contact by phone. ( No answer) Will send letter to the patient by mail. Spoke to remarks: No Answer. Patient identified by name and . PCC last patient outreach encounter 02-18-18 Last PCP appointment: 11-11-16 Patient cancels or no show for appointment Has the patient missed or cancelled any appointments in the last two months? Yes; appt type No Shows, reason unknown Any [facility] ED or hospital admissions in the past 2 months ? see CC LPOC NO Any outside ED or hospital admissions in the past 2 months No Medical records: } Epic MEDICATIONS: Many patients have questions or concerns about their medications. Any medication changes? unknown Were you told to hold any medications? unknown Were any of your medications discontinued? unkown Do you have any questions about getting or taking your medications? unknown Do you have all the necessary equipment and supplies at home? unknow Additional Patient Information Patient cancels appointmenst or no shows. Will mail letter to the patient Next PHMA Outreach 06-24-18 PHMA Huddle with PCC: Continue monitoring [facility] Observed: 03/03/2018 Status: COMPLETED Source: [place] 12:00 AM [facility] REPOSITORY Letter Text Department of Family Medicine [address], [place] [address] 03/03/2018 [place] [address] Dear Emilee, We missed you at your last appointment with Valeria Mace MD on 03/03/2018 at 4:40 pm. Please call our office at between the hours of 8:00 a.m. and 5:00 p.m. to reschedule or to inform us if this information is in error. It is important to know if you cannot keep an appointment so that the time is available for another person. We request that you cancel 24 hours in advance. If cancellation is necessary after that, please call as soon as possible. We appreciate your confidence in choosing the [facility] Family Medicine Department for your medical care and we look forward to seeing you at your next appointment. [facility] #: [id number] Sincerely, Department of Family Medicine [facility] PROGRESS Observed: 02/27/2018 Status: COMPLETED Source: [place] 4:21 PM [facility] REPOSITORY HNO ID: [id number] Author: Cedrick Vega) Service: (none) Author Type: Registered Nurse Type: Progress Notes Filed: 02/27/2018 4:33 PM Note Text: PRIMARY CARE COORDINATION FOLLOW-UP NOTE Provider Action/FYI Call to Pt left a to discuss BS, and medication Mgt ( Insulin) Pcp Appt 03/03/18 /Labs due Patient identified by name and date of . YES Signature Kait Philip RN February 27, 2018 PROGRESS Observed: 02/27/2018 Status: COMPLETED Source: [place] 4:03 PM [facility] REPOSITORY HNO ID: [id number] Author: Cedrick Vega) Service: (none) Author Type: Registered Nurse Type: Progress Notes Filed: 02/27/2018 4:04 PM Note Text: PRIMARY CARE COORDINATION QUICK NOTE Provider Action/FYI Chart Audit Patient identified by name and date . Kait Philip RN February 27, 2018 4:04 PM PROGRESS Observed: 02/25/2018 Status: COMPLETED Source: [place] 3:26 PM [facility] REPOSITORY HNO ID: [id number] Author: Cedrick Carballo (Rn) Service: (none) Author Type: Registered Nurse Type: Progress Notes Filed: 02/26/2018 3:13 PM Note Text: PRIMARY CARE COORDINATION QUICK NOTE Provider Action/FYI Noted, Thank You Patient identified by name and date . Kait Philip RN February 25, 2018 3:26 PM PROGRESS Observed: 02/25/2018 Status: COMPLETED Source: [place] 11:11 AM [facility] REPOSITORY HNO ID: [id number] Author: Joan Moreland) Andrew Service: (none) Author Type: Medical Health Researcher Type: Progress Notes Filed: 02/26/2018 3:13 PM Note Text: PRIMARY CARE COORDINATION PHMA LONGITUDINAL MAINTENANCE MONITORING PHMA Outreach: 2 month PCC Action/FYI: Patient follow up after discharge from Hospital. Emilee was in hospital for 9 weeks. Appointment schedule to see PCP on 03-03-18 Patient sore is still open but a little smaller. No fevers Patient is not taking LEVEMIR INSULIN since she left the hospital. Blood sugars are running 110-140. Spoke to patient. Patient identified by name and . PCC last patient outreach encounter 01-13-18 Last PCP appointment: 07-23-16 Has the patient missed or cancelled any appointments in the last two months? Yes; appt type TCM, reason appointment conflict Any [facility] ED or hospital admissions in the past 2 months ? see CC LPOC NO Any outside ED or hospital admissions in the past 2 months No Medical records: Obtained [facility] MEDICATIONS: Many patients have questions or concerns about their medications. Any medication changes? NO Were you told to hold any medications? NO Were any of your medications discontinued? If yes, what are those medications? Patient has multiple medication changes and d/c at [facility]. Follow up with PCP on 03-03-18 to compete medication reconciliation. Do you have any questions about getting or taking your medications? No Do you have all the necessary equipment and supplies at home? No, follow site specific process to secure durable medical equipment and/or supplies for the patient, handoff to RN/OUTBOUND SALES REPRESENTATIVE, or LIP Additional Patient Information Appointment with [facility] for Diabetic eye exam on Mar. Reminded pt of appointment with Dr. Mace on 03-03-18 and to get lab work done prior to 03-03-18 Patient declined mammogram screening and Hep C screening. Next PHMA Outreach 04-22-18 Pneumococcal Given at hospital on 10-14-17 PHMA Huddle with PCC: Continue monitoring Appointments for Next 60 Days Date Time Provider Location Dept Phone 03/03/2018 4:40 PM VALERIA MACE [facility] [phone] CNPTOUTREACH Observed: 02/25/2018 Status: COMPLETED Source: [place] 12:00 AM [facility] REPOSITORY Patient Outreach (FAMPWS) EMILEE BASSETT ([id number]) 1965 F Date Time Provider Department 02/25/18 JOAN CORTEZ) FAMPWS During your visit today, we recorded the following information about you: Joan Cortez MA 02/26/2018 3:13 PM Signed PRIMARY CARE COORDINATION PHMA LONGITUDINAL MAINTENANCE MONITORING PHMA Outreach: 2 month PCC Action/FYI: Patient follow up after discharge from Hospital. Emiele was in hospital for 9 weeks. Appointment schedule to see PCP on 03-03-18 Patient sore is still open but a little smaller. No fevers Patient is not taking LEVEMIR INSULIN since she left the hospital. Blood sugars are running 110-140. Spoke to patient. Patient identified by name and . PCC last patient outreach encounter 01-13-18 Last PCP appointment: 07-23-16 Has the patient missed or cancelled any appointments in the last two months? Yes; appt type TCM, reason appointment conflict Any [facility] ED or hospital admissions in the past 2 months ? see CC LPOC NO Any outside ED or hospital admissions in the past 2 months No Medical records: Obtained Epic [facility] MEDICATIONS: Many patients have questions or concerns about their medications. Any medication changes? NO Were you told to hold any medications? NO Were any of your medications discontinued? If yes, what are those medications? Patient has multiple medication changes and d/c at [facility]. Follow up with PCP on 03-03-18 to compete medication reconciliation. Do you have any questions about getting or taking your medications? No Do you have all the necessary equipment and supplies at home? No, follow site specific process to secure durable medical equipment and/or supplies for the patient, handoff to RN/OUTBOUND SALES REPRESENTATIVE, or LIP Additional Patient Information Appointment with [facility] for Diabetic eye exam on Mar. Reminded pt of appointment with Dr. Mace on 03-03-18 and to get lab work done prior to 03-03-18 Patient declined mammogram screening and Hep C screening. Next PHMA Outreach 04-22-18 Pneumococcal Given at hospital on 10-14-17 PHMA Huddle with PCC: Continue monitoring Appointments for Next 60 Days Date Time Provider Location Dept Phone 03/03/2018 4:40 PM VALERIA MACE [facility] [phone] Kait Philip RN 02/26/2018 3:13 PM Signed PRIMARY CARE COORDINATION QUICK NOTE Provider Action/FYI Noted, Thank You Patient identified by name and date . Kait Philip RN February 25, 2018 3:26 PM Kait Philip RN 02/27/2018 4:33 PM Addendum PRIMARY CARE COORDINATION FOLLOW-UP NOTE Provider Action/FYI Call to Pt left a to discuss BS, and medication Mgt ( Insulin) Pcp Appt 03/03/18 /Labs due Patient identified by name and date of . YES Signature Kait Philip RN February 27, 2018 Joan Cortez MA 04/24/2018 2:53 PM Signed PRIMARY CARE COORDINATION PHMA LONGITUDINAL MAINTENANCE MONITORING PHMA Outreach: 2 month PCC Action/FYI: Was unable to contact by phone. ( No answer) Will send letter to the patient by mail. Spoke to remarks: No Answer. Patient identified by name and . PCC last patient outreach encounter 02-18-18 Last PCP appointment: 11-11-16 Patient cancels or no show for appointment Has the patient missed or cancelled any appointments in the last two months? Yes; appt type No Shows, reason unknown Any [facility] ED or hospital admissions in the past 2 months ? see CC LPOC NO Any outside ED or hospital admissions in the past 2 months No Medical records: } Epic MEDICATIONS: Many patients have questions or concerns about their medications. Any medication changes? unknown Were you told to hold any medications? unknown Were any of your medications discontinued? unkown Do you have any questions about getting or taking your medications? unknown Do you have all the necessary equipment and supplies at home? unknow Additional Patient Information Patient cancels appointmenst or no shows. Will mail letter to the patient Next MA Outreach 06-24-18 PHMA Huddle with PCC: Continue monitoring Joan Cortez MA 05/18/2018 2:40 PM Signed [facility] SINKER PULLER QUICKNOTE Provider Action/FYI: Called patient. No answer left voice mail meesage Patient identified by name and . DEMETRA Delgado MA 05/19/2018 11:09 AM Signed [facility] S[facility] PULLER RONY Provider Action/f Called Patient no answer, Left voice mail message to return a call to [phone] Patient identified by name and . 65 DEMETRA Delgado RN 05/20/2018 3:42 PM Signed PRIMARY CARE COORDINATION QUICK NOTE Provider Action/FYI Noted, Thank You Patient identified by name and date . Kait Philip RN May 20, 2018 3:41 PM Allergies As of Date: 02/25/2018 Noted Allergy Reaction LATEX 01/18/2009 7 - Swelling BLUEBERRY 02/02/2016 6 - Diarrhea LACTOSE INTOLERANCE (LACTASE) 03/16/2007 MUSHROOM 10/24/2015 12 - Shortness of Breath STRAWBERRY 10/24/2015 4 - Hives Date Reviewed: 02/06/2017 Reviewed by: Jaylene Frias - Fully Assessed Reason for Visit: PHMA/Care Gap Outreach [3605] Wet Process [place] Chronic Care [3612] Reason For Visit History Recorded Prescriptions as of 02/25/2018 Sig: ACETAZOLAMIDE 125 MG TABLET Take 1 tablet by mouth three * ALBUTEROL SULFATE HFA 90 MCG/* Inhale 2 Puffs as instructed * BLOOD SUGAR DIAGNOSTIC STRIPS Test blood sugar(s) 1 times d* BLOOD-GLUCOSE METER KIT 1 Each as needed. CYCLOBENZAPRINE 10 MG TABLET Take 1 tablet by mouth three * GLUCOSE GEL ORAL Take by mouth as needed (1 d* DICYCLOMINE 20 MG TABLET Take 1 tablet by mouth every * DILTIAZEM SR 240 MG 24 HR CAP Take 1 capsule by mouth once * FUROSEMIDE 20 MG TABLET Take 1 tablet by mouth twice * GABAPENTIN 300 MG CAPSULE Take 1 capsule by mouth daily* NIFEREX-150 ORAL Take 150 mg by mouth once terry* LANCETS Test blood sugar(s) 1 times * OXYBUTYNIN CHLORIDE ER 15 MG * Take 1 tablet by mouth once d* PANTOPRAZOLE 40 MG TABLET,DEL* Take 1 tablet by mouth once d* * THERAPEUTIC MULTIVITAMIN TABL* Take one(1) tablet daily. X GLIMEPIRIDE 2 MG TABLET Take 1 tablet by mouth daily * X METOPROLOL SUCCINATE ER 25 MG* Take 1 tablet by mouth once d* ACETAMINOPHEN 500 MG TABLET Take 2 tablets by mouth every* ACETAMINOPHEN 325 MG TABLET Take 2 tablets by mouth every* ACETAZOLAMIDE 250 MG TABLET Take 1 tablet by mouth three * ALBUTEROL SULFATE HFA 90 MCG/* Inhale 2 Puffs as instructed * ALPRAZOLAM 0.5 MG TABLET Take 1 tablet by mouth every * APIXABAN 5 MG TABLET Take by mouth once daily. BUPROPION XL 150 MG TAB Take 1 tablet by mouth once d* Patient not taking: Reported on 02/25/2018 COMPOUNDED PRESCRIPTION Bariatric Hospital Bed. DILTIAZEM SR 120 MG 24 HR CAP Take 1 capsule by mouth twice* FUROSEMIDE 80 MG TABLET Take 1 tablet by mouth twice * Patient not taking: Reported on 02/25/2018 GUAIFENESIN ER 1,200 MG TABLE* Take 1 tablet by mouth twice * HYDROCHLOROTHIAZIDE 25 MG TAB* Take 1 tablet by mouth once d* Patient not taking: Reported on 02/25/2018 INSULIN DETEMIR (U-100) 100 U* 10 units daily at bedtime Patient not taking: Reported on 02/25/2018 LISINOPRIL 5 MG TABLET Take 1 tablet by mouth once d* Patient not taking: Reported on 02/25/2018 MELOXICAM 15 MG TABLET Take 1 tablet by mouth once d* MENTHOL 0.44 %-ZINC OXIDE 20.* Apply 1 application to affect* NAPROXEN SODIUM 220 MG TABLET Take 1 tablet by mouth twice * Patient not taking: Reported on 02/25/2018 NYSTATIN 100,000 UNIT/GRAM TO* Apply 1 application to affect* OMEPRAZOLE 20 MG CAPSULE,HOANG* Take 1 capsule by mouth once * Patient not taking: Reported on 02/25/2018 POLYETHYLENE GLYCOL 3350 17 G* Take 1 Packet by mouth once d* POTASSIUM CHLORIDE 20 MEQ ORA* Take 20 mEq by mouth twice da* TRAMADOL 50 MG TABLET Take 1 tablet by mouth three * Problem List As Of Date 02/25/2018 Noted Resolved BENIGN HYPERTENSION [I10] INVALID FOR* ASTHMA UNSPECIFIED [J45.909] INVALID FOR* Obesity, Class III, BMI 40-49.9 (morbid obesity*INVALID FOR* GENERAL OSTEOARTHROSIS [M15.9] INVALID FOR* LUMBAGO [M54.5] INVALID FOR* Pure Hyperglyceridemia [E78.1] INVALID FOR* Cholelithiasis [K80.20] INVALID FOR* Sleep apnea [G47.30] INVALID FOR* Leg pain, bilateral [M79.604, M79.605] INVALID FOR* Mixed hyperlipidemia [E78.2] INVALID FOR* Type 2 diabetes mellitus without complication (*INVALID FOR* Congestive heart failure (HCC) [I50.9] INVALID FOR* Letter Text Family Medicine [place] [address] [facility] [address] Dept: [phone] Joan Cortez MA, Population Health .A. April 24, 2018 Emilee Bassett [address] [facility] [place] [address] Dear Ms. Bassett In an effort to serve your healthcare needs, it has come to the attention of Valeria Mace MD, your Primary Care Provider, that you are overdue for routine health care. We've attempted to contact you and have been unsuccessful. Please call the office at [phone] to schedule an appointment for Follow Up. In addition, you are due for the following health maintenance(s) Health Maintenance Due: URINE ALBUMIN:CREATININE RATIO due on 1975 BP CONTROLLED (<130/80) due on 1983 DTAP,TDAP,TD(1 - Tdap) due on 1984 DIABETIC FOOT EXAM due on 01/28/2017 INFLUENZA(1) due on 02/07/2018 HBA1C due on 04/05/2018 PAP EVERY 5 YEARS due on 09/14/2018 HPV EVERY 5 YEARS due on 09/14/2018 If any of these routine health care items were completed by an outside facility, please have that office fax the results to [phone] Attn: Valeria Mace MD or bring the records with you to your appointment. We will gladly update your record. If you have any questions, please feel free to call the office at [phone] or message us via [employer]. Thank you for choosing the [facility]. Sincerely, Joan Cortez MA, Population Health M.A. (electronically signed to expedite mailing) Encounter Status:Closed by JOAN CORTEZ on 02/26/18 PROGRESS Observed: 02/18/2018 Status: COMPLETED Source: [place] 2:45 PM [facility] REPOSIT[facility] HNO ID: [id number] Author: Cedrick Carballo (Rn) Service: (none) Author Type: Registered Nurse Type: Progress Notes Filed: 02/25/2018 2:58 PM Note Text: PRIMARY CARE COORDINATION PRE-VISIT ASSESSMENT Provider Action/FYI: Call to Pt left a vm Patient has been identified by name and date of . Next Office Visit: 03/03/2018 Last Office Visit Plan/Progress: 11/11/2016 Medication Review: Address in future encounter Health Maintenance: URINE ALBUMIN:CREATININE RATIO due on 1975 DILATED RETINAL EXAM due on 1975 ONE PNEUMOVAX PRIOR TO AGE 65 due on 1981 BP CONTROLLED (<130/80) due on 1983 DTAP,TDAP,TD(1 - Tdap) due on 1984 HEPATITIS C SCREENING due on 2009 MAMMOGRAM due on 09/14/2014 DIABETIC FOOT EXAM due on 01/28/2017 INFLUENZA(1) due on 02/07/2018 Interventions/PCC Plan of Care: Forward to Yolis Cortez for [facility] to follow: Health Maintenance Kait Philip RN February 18, 2018 CNPTOUTREACH Observed: 02/18/2018 Status: COMPLETED Source: [place] 12:00 AM [facility] REPOSITORY Patient Outreach (FAMPWS) EMILEE BASSETT ([id number]) 1965 F Date Time Provider Department 02/18/18 CEDRICK CARBALLO (RN) [facility] During your visit today, we recorded the following information about you: Kait Philip RN 02/25/2018 2:58 PM Signed PRIMARY CARE COORDINATION PRE-VISIT ASSESSMENT Provider Action/FYI: Call to Pt left a vm Patient has been identified by name and date of . Next Office Visit: 03/03/2018 Last Office Visit Plan/Progress: 11/11/2016 Medication Review: Address in future encounter Health Maintenance: URINE ALBUMIN:CREATININE RATIO due on 1975 DILATED RETINAL EXAM due on 1975 ONE PNEUMOVAX PRIOR TO AGE 65 due on 1981 BP CONTROLLED (<130/80) due on 1983 DTAP,TDAP,TD(1 - Tdap) due on 1984 HEPATITIS C SCREENING due on 2009 MAMMOGRAM due on 09/14/2014 DIABETIC FOOT EXAM due on 01/28/2017 INFLUENZA(1) due on 02/07/2018 Interventions/PCC Plan of Care: Forward to Yolis Cortez for [facility] to follow: Health Maintenance Kait Philip RN February 18, 2018 Allergies As of Date: 02/18/2018 Noted Allergy Reaction LATEX 01/18/2009 7 - Swelling BLUEBERRY 02/02/2016 6 - Diarrhea LACTOSE INTOLERANCE (LACTASE) 03/16/2007 MUSHROOM 10/24/2015 12 - Shortness of Breath STRAWBERRY 10/24/2015 4 - Hives Date Reviewed: 02/06/2017 Reviewed by: Jaylene Frias - Fully Assessed Reason for Visit: Wet Process [place] [facility] [3619] Cmt: [facility]/ Pcp Appt Prescriptions as of 02/18/2018 Sig: GABAPENTIN 300 MG CAPSULE Take 1 capsule by mouth daily* ACETAZOLAMIDE 125 MG TABLET Take 1 tablet by mouth three * PANTOPRAZOLE 40 MG TABLET,DEL* Take 1 tablet by mouth once d* CYCLOBENZAPRINE 10 MG TABLET Take 1 tablet by mouth three * TRAMADOL 50 MG TABLET Take 1 tablet by mouth three * FUROSEMIDE 20 MG TABLET Take 1 tablet by mouth twice * DILTIAZEM SR 240 MG 24 HR CAP Take 1 capsule by mouth once * ALPRAZOLAM 0.5 MG TABLET Take 1 tablet by mouth every * ACETAMINOPHEN 500 MG TABLET Take 2 tablets by mouth every* DILTIAZEM SR 120 MG 24 HR CAP Take 1 capsule by mouth twice* ACETAZOLAMIDE 250 MG TABLET Take 1 tablet by mouth three * GUAIFENESIN ER 1,200 MG TABLE* Take 1 tablet by mouth twice * NYSTATIN 100,000 UNIT/GRAM TO* Apply 1 application to affect* MENTHOL 0.44 %-ZINC OXIDE 20.* Apply 1 application to affect* POLYETHYLENE GLYCOL 3350 17 G* Take 1 Packet by mouth once d* ACETAMINOPHEN 325 MG TABLET Take 2 tablets by mouth every* METOPROLOL SUCCINATE ER 25 MG* Take 1 tablet by mouth once d* OXYBUTYNIN CHLORIDE ER 15 MG * Take 1 tablet by mouth once d* DICYCLOMINE 20 MG TABLET Take 1 tablet by mouth every * LISINOPRIL 5 MG TABLET Take 1 tablet by mouth once d* Patient not taking: Reported on 02/25/2018 NIFEREX-150 ORAL Take 150 mg by mouth once terry* APIXABAN 5 MG TABLET Take by mouth once daily. ALBUTEROL SULFATE HFA 90 MCG/* Inhale 2 Puffs as instructed * GLUCOSE GEL ORAL Take by mouth as needed (1 d* GLIMEPIRIDE 2 MG TABLET Take 1 tablet by mouth daily * OMEPRAZOLE 20 MG CAPSULE,HOANG* Take 1 capsule by mouth once * Patient not taking: Reported on 02/25/2018 MELOXICAM 15 MG TABLET Take 1 tablet by mouth once d* COMPOUNDED PRESCRIPTION Bariatric Hospital Bed. BUPROPION XL 150 MG TAB Take 1 tablet by mouth once d* Patient not taking: Reported on 02/25/2018 FUROSEMIDE 80 MG TABLET Take 1 tablet by mouth twice * Patient not taking: Reported on 02/25/2018 POTASSIUM CHLORIDE 20 MEQ ORA* Take 20 mEq by mouth twice da* INSULIN DETEMIR (U-100) 100 U* 10 units daily at bedtime Patient not taking: Reported on 02/25/2018 HYDROCHLOROTHIAZIDE 25 MG TAB* Take 1 tablet by mouth once d* Patient not taking: Reported on 02/25/2018 BLOOD-GLUCOSE METER KIT 1 Each as needed. BLOOD SUGAR DIAGNOSTIC STRIPS Test blood sugar(s) 1 times d* LANCETS Test blood sugar(s) 1 times * NAPROXEN SODIUM 220 MG TABLET Take 1 tablet by mouth twice * Patient not taking: Reported on 02/25/2018 ALBUTEROL SULFATE HFA 90 MCG/* Inhale 2 Puffs as instructed * * THERAPEUTIC MULTIVITAMIN TABL* Take one(1) tablet daily. Problem List As Of Date 02/18/2018 Noted Resolved BENIGN HYPERTENSION [I10] INVALID FOR* ASTHMA UNSPECIFIED [J45.909] INVALID FOR* Obesity, Class III, BMI 40-49.9 (morbid obesity*INVALID FOR* GENERAL OSTEOARTHROSIS [M15.9] INVALID FOR* LUMBAGO [M54.5] INVALID FOR* Pure Hyperglyceridemia [E78.1] INVALID FOR* Cholelithiasis [K80.20] INVALID FOR* Sleep apnea [G47.30] INVALID FOR* Leg pain, bilateral [M79.604, M79.605] INVALID FOR* Mixed hyperlipidemia [E78.2] INVALID FOR* Type 2 diabetes mellitus without complication (*INVALID FOR* Congestive heart failure (HCC) [I50.9] INVALID FOR* Encounter Status:Closed by KAIT PHILIP on 02/25/18 FABIOLATOUTRABIOLA Observed: 02/17/2018 Status: COMPLETED Source: [place] 12:00 AM [facility] REPOSITORY Patient Outreach ([facility]) EMILEE BASSETT ([id number]) 1965 F Date Time Provider Department 02/17/18 VALERIA MACE [facility] During your visit today, we recorded the following information about you: Kait Philip RN 02/27/2018 4:04 PM Signed PRIMARY CARE COORDINATION QUICK NOTE Provider Action/FYI Chart Audit Patient identified by name and date . Kait Philip RN February 27, 2018 4:04 PM Allergies As of Date: 02/17/2018 Noted Allergy Reaction LATEX 01/18/2009 7 - Swelling BLUEBERRY 02/02/2016 6 - Diarrhea LACTOSE INTOLERANCE (LACTASE) 03/16/2007 MUSHROOM 10/24/2015 12 - Shortness of Breath STRAWBERRY 10/24/2015 4 - Hives Date Reviewed: 02/06/2017 Reviewed by: Jaylene Frias - Fully Assessed Visit Diagnosis:Medication management [Z79.899] Order(s):CBC [SQCBC] Order #: [id number] FUTURE BASIC METABOLIC PNL [SQBMP] Order #: [id number] FUTURE HGB A1C [WYMLH2T] Order #: [id number] FUTURE Prescriptions as of 02/17/2018 Sig: GABAPENTIN 300 MG CAPSULE Take 1 capsule by mouth daily* ACETAZOLAMIDE 125 MG TABLET Take 1 tablet by mouth three * PANTOPRAZOLE 40 MG TABLET,DEL* Take 1 tablet by mouth once d* CYCLOBENZAPRINE 10 MG TABLET Take 1 tablet by mouth three * TRAMADOL 50 MG TABLET Take 1 tablet by mouth three * FUROSEMIDE 20 MG TABLET Take 1 tablet by mouth twice * DILTIAZEM SR 240 MG 24 HR CAP Take 1 capsule by mouth once * ALPRAZOLAM 0.5 MG TABLET Take 1 tablet by mouth every * ACETAMINOPHEN 500 MG TABLET Take 2 tablets by mouth every* DILTIAZEM SR 120 MG 24 HR CAP Take 1 capsule by mouth twice* ACETAZOLAMIDE 250 MG TABLET Take 1 tablet by mouth three * GUAIFENESIN ER 1,200 MG TABLE* Take 1 tablet by mouth twice * NYSTATIN 100,000 UNIT/GRAM TO* Apply 1 application to affect* MENTHOL 0.44 %-ZINC OXIDE 20.* Apply 1 application to affect* POLYETHYLENE GLYCOL 3350 17 G* Take 1 Packet by mouth once d* ACETAMINOPHEN 325 MG TABLET Take 2 tablets by mouth every* METOPROLOL SUCCINATE ER 25 MG* Take 1 tablet by mouth once d* OXYBUTYNIN CHLORIDE ER 15 MG * Take 1 tablet by mouth once d* DICYCLOMINE 20 MG TABLET Take 1 tablet by mouth every * LISINOPRIL 5 MG TABLET Take 1 tablet by mouth once d* Patient not taking: Reported on 02/25/2018 NIFEREX-150 ORAL Take 150 mg by mouth once terry* APIXABAN 5 MG TABLET Take by mouth once daily. ALBUTEROL SULFATE HFA 90 MCG/* Inhale 2 Puffs as instructed * GLUCOSE GEL ORAL Take by mouth as needed (1 d* GLIMEPIRIDE 2 MG TABLET Take 1 tablet by mouth daily * OMEPRAZOLE 20 MG CAPSULE,HOANG* Take 1 capsule by mouth once * Patient not taking: Reported on 02/25/2018 MELOXICAM 15 MG TABLET Take 1 tablet by mouth once d* COMPOUNDED PRESCRIPTION Bariatric Hospital Bed. BUPROPION XL 150 MG TAB Take 1 tablet by mouth once d* Patient not taking: Reported on 02/25/2018 FUROSEMIDE 80 MG TABLET Take 1 tablet by mouth twice * Patient not taking: Reported on 02/25/2018 POTASSIUM CHLORIDE 20 MEQ ORA* Take 20 mEq by mouth twice da* INSULIN DETEMIR (U-100) 100 U* 10 units daily at bedtime Patient not taking: Reported on 02/25/2018 HYDROCHLOROTHIAZIDE 25 MG TAB* Take 1 tablet by mouth once d* Patient not taking: Reported on 02/25/2018 BLOOD-GLUCOSE METER KIT 1 Each as needed. BLOOD SUGAR DIAGNOSTIC STRIPS Test blood sugar(s) 1 times d* LANCETS Test blood sugar(s) 1 times * NAPROXEN SODIUM 220 MG TABLET Take 1 tablet by mouth twice * Patient not taking: Reported on 02/25/2018 ALBUTEROL SULFATE HFA 90 MCG/* Inhale 2 Puffs as instructed * * THERAPEUTIC MULTIVITAMIN TABL* Take one(1) tablet daily. Problem List As Of Date 02/17/2018 Noted Resolved BENIGN HYPERTENSION [I10] INVALID FOR* ASTHMA UNSPECIFIED [J45.909] INVALID FOR* Obesity, Class III, BMI 40-49.9 (morbid obesity*INVALID FOR* GENERAL OSTEOARTHROSIS [M15.9] INVALID FOR* LUMBAGO [M54.5] INVALID FOR* Pure Hyperglyceridemia [E78.1] INVALID FOR* Cholelithiasis [K80.20] INVALID FOR* Sleep apnea [G47.30] INVALID FOR* Leg pain, bilateral [M79.604, M79.605] INVALID FOR* Mixed hyperlipidemia [E78.2] INVALID FOR* Type 2 diabetes mellitus without complication (*INVALID FOR* Congestive heart failure (HCC) [I50.9] INVALID FOR* Encounter Status:Closed by PHILIP, KAIT M on 02/27/18 PROGRESS Observed: 02/04/2018 Status: COMPLETED Source: [place] 3:56 PM [facility] REPOSITORY HNO ID: [id number] Author: Cedrick Carballo (Rn) Service: (none) Author Type: Registered Nurse Type: Progress Notes Filed: 02/06/2018 4:54 PM Note Text: PRIMARY CARE COORDINATION FOLLOW-UP NOTE Provider Action/FYI Call to Pt left a vm related to status of Left Thigh Abscess, f/u Appt with Pcp, [facility] Maintenance Patient identified by name and date of . YES Spoke to Left a vm Signature Kait Philip RN February 04, 2018 February 06, 2018 4:41 PM CNPTOUTREACH Observed: 02/04/2018 Status: COMPLETED Source: [place] 12:00 AM [facility] REPOSITORY Patient Outreach (FAMPWS) EMILEE BASSETT ([id number]) 1965 F Date Time Provider Department 02/04/18 CEDRICK CARBALLO (RN) FAMPWS During your visit today, we recorded the following information about you: Kait Philip RN 02/06/2018 4:54 PM Signed PRIMARY CARE COORDINATION FOLLOW-UP NOTE Provider Action/FYI Call to Pt left a vm related to status of Left Thigh Abscess, f/u Appt with Pcp, [facility] Maintenance Patient identified by name and date of . YES Spoke to Left a vm Signature Kait Philip RN February 04, 2018 February 06, 2018 4:41 PM Allergies As of Date: 02/04/2018 Noted Allergy Reaction LATEX 01/18/2009 7 - Swelling BLUEBERRY 02/02/2016 6 - Diarrhea LACTOSE INTOLERANCE (LACTASE) 03/16/2007 MUSHROOM 10/24/2015 12 - Shortness of Breath STRAWBERRY 10/24/2015 4 - Hives Date Reviewed: 02/06/2017 Reviewed by: Jaylene Frias - Fully Assessed Reason for Visit: Wet Process [place] Chronic Care [6785] Cmt: [facility] Maintenance/ Update Prescriptions as of 02/04/2018 Sig: FUROSEMIDE 20 MG TABLET Take 1 tablet by mouth twice * DILTIAZEM SR 240 MG 24 HR CAP Take 1 capsule by mouth once * ALPRAZOLAM 0.5 MG TABLET Take 1 tablet by mouth every * ACETAMINOPHEN 500 MG TABLET Take 2 tablets by mouth every* DILTIAZEM SR 120 MG 24 HR CAP Take 1 capsule by mouth twice* GABAPENTIN 300 MG CAPSULE Take 1 capsule by mouth daily* ACETAZOLAMIDE 125 MG TABLET Take 1 tablet by mouth three * ACETAZOLAMIDE 250 MG TABLET Take 1 tablet by mouth three * GUAIFENESIN ER 1,200 MG TABLE* Take 1 tablet by mouth twice * NYSTATIN 100,000 UNIT/GRAM TO* Apply 1 application to affect* MENTHOL 0.44 %-ZINC OXIDE 20.* Apply 1 application to affect* POLYETHYLENE GLYCOL 3350 17 G* Take 1 Packet by mouth once d* ACETAMINOPHEN 325 MG TABLET Take 2 tablets by mouth every* METOPROLOL SUCCINATE ER 25 MG* Take 1 tablet by mouth once d* OXYBUTYNIN CHLORIDE ER 15 MG * Take 1 tablet by mouth once d* DICYCLOMINE 20 MG TABLET Take 1 tablet by mouth every * PANTOPRAZOLE 40 MG TABLET,DEL* Take 1 tablet by mouth once d* LISINOPRIL 5 MG TABLET Take 1 tablet by mouth once d* TRAMADOL 50 MG TABLET Take 1 tablet by mouth three * NIFEREX-150 ORAL Take 150 mg by mouth once terry* APIXABAN 5 MG TABLET Take by mouth once daily. ALBUTEROL SULFATE HFA 90 MCG/* Inhale 2 Puffs as instructed * GLUCOSE GEL ORAL Take by mouth as needed (1 d* GLIMEPIRIDE 2 MG TABLET Take 1 tablet by mouth daily * OMEPRAZOLE 20 MG CAPSULE,HOANG* Take 1 capsule by mouth once * MELOXICAM 15 MG TABLET Take 1 tablet by mouth once d* COMPOUNDED PRESCRIPTION Bariatric Hospital Bed. BUPROPION XL 150 MG TAB Take 1 tablet by mouth once d* FUROSEMIDE 80 MG TABLET Take 1 tablet by mouth twice * POTASSIUM CHLORIDE 20 MEQ ORA* Take 20 mEq by mouth twice da* INSULIN DETEMIR (U-100) 100 U* 10 units daily at bedtime HYDROCHLOROTHIAZIDE 25 MG TAB* Take 1 tablet by mouth once d* CYCLOBENZAPRINE 10 MG TABLET Take 1 tablet by mouth three * BLOOD-GLUCOSE METER KIT 1 Each as needed. BLOOD SUGAR DIAGNOSTIC STRIPS Test blood sugar(s) 1 times d* LANCETS Test blood sugar(s) 1 times * NAPROXEN SODIUM 220 MG TABLET Take 1 tablet by mouth twice * ALBUTEROL SULFATE HFA 90 MCG/* Inhale 2 Puffs as instructed * * THERAPEUTIC MULTIVITAMIN TABL* Take one(1) tablet daily. Problem List As Of Date 02/04/2018 Noted Resolved BENIGN HYPERTENSION [I10] INVALID FOR* ASTHMA UNSPECIFIED [J45.909] INVALID FOR* Obesity, Class III, BMI 40-49.9 (morbid obesity*INVALID FOR* GENERAL OSTEOARTHROSIS [M15.9] INVALID FOR* LUMBAGO [M54.5] INVALID FOR* Pure Hyperglyceridemia [E78.1] INVALID FOR* Cholelithiasis [K80.20] INVALID FOR* Sleep apnea [G47.30] INVALID FOR* Leg pain, bilateral [M79.604, M79.605] INVALID FOR* Mixed hyperlipidemia [E78.2] INVALID FOR* Type 2 diabetes mellitus without complication (*INVALID FOR* Congestive heart failure (HCC) [I50.9] INVALID FOR* Encounter Status:Closed by KAIT PHILIP on 02/06/18 YUNIEL Observed: 01/29/2018 Status: COMPLETED Source: [place] 12:00 AM [facility] EMILE[facility] BASSETT ([id number]) 1965 F Date Time Provider Department 01/29/18 VALERIA MACE [facility] During your visit today, we recorded the following information about you: Jody Staton Ma 01/29/2018 12:41 PM Signed Masha from [facility] dropped off forms to be signed. Please review and sign. Call Masha when ready. P# on folder. 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 Jody Staton Ma 02/05/2018 8:10 AM Signed Forms still in office as of today. This has been faxed to [facility]. Jody Staton Ma Allergies As of Date: 01/29/2018 Noted Allergy Reaction LATEX 01/18/2009 7 - Swelling BLUEBERRY 02/02/2016 6 - Diarrhea LACTOSE INTOLERANCE (LACTASE) 03/16/2007 MUSHROOM 10/24/2015 12 - Shortness of Breath STRAWBERRY 10/24/2015 4 - Hives Date Reviewed: 02/06/2017 Reviewed by: Jaylene Frias - Fully Assessed Reason for Visit: Forms [913] Prescriptions as of 01/29/2018 Sig: FUROSEMIDE 20 MG TABLET Take 1 tablet by mouth twice * DILTIAZEM SR 240 MG 24 HR CAP Take 1 capsule by mouth once * PREDNISONE 20 MG TABLET Take 2 tablets by mouth once * ALPRAZOLAM 0.5 MG TABLET Take 1 tablet by mouth every * ACETAMINOPHEN 500 MG TABLET Take 2 tablets by mouth every* DILTIAZEM SR 120 MG 24 HR CAP Take 1 capsule by mouth twice* GABAPENTIN 300 MG CAPSULE Take 1 capsule by mouth daily* ACETAZOLAMIDE 125 MG TABLET Take 1 tablet by mouth three * ACETAZOLAMIDE 250 MG TABLET Take 1 tablet by mouth three * GUAIFENESIN ER 1,200 MG TABLE* Take 1 tablet by mouth twice * NYSTATIN 100,000 UNIT/GRAM TO* Apply 1 application to affect* MENTHOL 0.44 %-ZINC OXIDE 20.* Apply 1 application to affect* POLYETHYLENE GLYCOL 3350 17 G* Take 1 Packet by mouth once d* ACETAMINOPHEN 325 MG TABLET Take 2 tablets by mouth every* METOPROLOL SUCCINATE ER 25 MG* Take 1 tablet by mouth once d* OXYBUTYNIN CHLORIDE ER 15 MG * Take 1 tablet by mouth once d* DICYCLOMINE 20 MG TABLET Take 1 tablet by mouth every * PANTOPRAZOLE 40 MG TABLET,DEL* Take 1 tablet by mouth once d* LISINOPRIL 5 MG TABLET Take 1 tablet by mouth once d* TRAMADOL 50 MG TABLET Take 1 tablet by mouth three * NIFEREX-150 ORAL Take 150 mg by mouth once terry* APIXABAN 5 MG TABLET Take by mouth once daily. ALBUTEROL SULFATE HFA 90 MCG/* Inhale 2 Puffs as instructed * GLUCOSE GEL ORAL Take by mouth as needed (1 d* GLIMEPIRIDE 2 MG TABLET Take 1 tablet by mouth daily * OMEPRAZOLE 20 MG CAPSULE,HOANG* Take 1 capsule by mouth once * MELOXICAM 15 MG TABLET Take 1 tablet by mouth once d* COMPOUNDED PRESCRIPTION Bariatric Hospital Bed. BUPROPION XL 150 MG TAB Take 1 tablet by mouth once d* FUROSEMIDE 80 MG TABLET Take 1 tablet by mouth twice * POTASSIUM CHLORIDE 20 MEQ ORA* Take 20 mEq by mouth twice da* INSULIN DETEMIR (U-100) 100 U* 10 units daily at bedtime HYDROCHLOROTHIAZIDE 25 MG TAB* Take 1 tablet by mouth once d* CYCLOBENZAPRINE 10 MG TABLET Take 1 tablet by mouth three * BLOOD-GLUCOSE METER KIT 1 Each as needed. BLOOD SUGAR DIAGNOSTIC STRIPS Test blood sugar(s) 1 times d* LANCETS Test blood sugar(s) 1 times * NAPROXEN SODIUM 220 MG TABLET Take 1 tablet by mouth twice * ALBUTEROL SULFATE HFA 90 MCG/* Inhale 2 Puffs as instructed * * THERAPEUTIC MULTIVITAMIN TABL* Take one(1) tablet daily. Problem List As Of Date 01/29/2018 Noted Resolved BENIGN HYPERTENSION [I10] INVALID FOR* ASTHMA UNSPECIFIED [J45.909] INVALID FOR* Obesity, Class III, BMI 40-49.9 (morbid obesity*INVALID FOR* GENERAL OSTEOARTHROSIS [M15.9] INVALID FOR* LUMBAGO [M54.5] INVALID FOR* Pure Hyperglyceridemia [E78.1] INVALID FOR* Cholelithiasis [K80.20] INVALID FOR* Sleep apnea [G47.30] INVALID FOR* Leg pain, bilateral [M79.604, M79.605] INVALID FOR* Mixed hyperlipidemia [E78.2] INVALID FOR* Type 2 diabetes mellitus without complication (*INVALID FOR* Congestive heart failure (HCC) [I50.9] INVALID FOR* Encounter Status:Closed by JODY STATON MA on 01/29/18 PROGRESS Observed: 01/15/2018 Status: COMPLETED Source: [place] 1:46 PM [facility] REPOSITORY HNO ID: [id number] Author: Cedrick Carballo (Demar) Service: (none) Author Type: Registered Nurse Type: Progress Notes Filed: 03/20/2018 4:27 AM Note Text: PRIMARY CARE COORDINATION INTAKE Provider Action/FYI: Patient identified for Primary Care Coordination from: TCM Active Goals - Current status as of 01/15/2018 at 1:46 PM Most Recent Patient Stated - Get around and do things (pt-stated) Improve level of functioning, and improve her health status Other - Address all appropriate HM and disease care gaps - Annual BMP - Annual foot exam - Annual microalbumin - Annual retina exam - Blood Pressure < 130/80 150/84 (02/05/2017) - Check weight daily - Confirm medication adherence of all prescribed medications and uses them correctly - Has a plan for unexpected weight gain - HBA1C drawn quarterly - Hemoglobin A1C < 7 5.2 (10/04/2017) - LDL at or below 100 mg/dL or on a high statin - Tobacco cessation - Understands and follows a low salt diet - Understands and follows DASH diet - Weight mgmt/activity Health Maintenance Topics with due status: Overdue Topic Date Due URINE ALBUMIN:CREATININE RATIO 1975 DILATED RETINAL EXAM 1975 ONE PNEUMOVAX PRIOR TO AGE 65 1981 BLOOD PRESSURE CONTROLLED 1983 DTAP,TDAP,TD 1984 HEPATITIS C SCREENING 2009 MAMMOGRAM 09/14/2014 DIABETIC FOOT EXAM 01/28/2017 Health Maintenance Topics with due status: Due Soon Topic Date Due INFLUENZA 02/07/2018 Care Coordination: General Care Coordination (since 10/17/2017) None Social Determinants: Education (since 10/17/2017) None Health Literacy (since 10/17/2017) None Resource Strain (since 10/17/2017) None Depression (since 10/17/2017) None Diet (since 10/17/2017) None Physical Activity (since 10/17/2017) None Tobacco Use (since 10/17/2017) None Alcohol Use (since 10/17/2017) None Social Connection and Isolation (since 10/17/2017) None Intimate Partner Violence (since 10/17/2017) None Stress (since 10/17/2017) None Food Insecurity (since 10/17/2017) None Transportation Needs (since 10/17/2017) None Activities of Daily Living: Patients can perform the following activities without help: (since 10/17/2017) None Instrumental activities of daily living (since 10/17/2017) None Fall Risk: Fall Risk (since 10/17/2017) None Kait Philip RN CNPTOUTREACH Observed: 01/15/2018 Status: COMPLETED Source: [place] 12:00 AM [facility] Patient Outreach ([facility]) DANYELLEEMILEE ([id number]) 1965 F Date Time Provider Department 01/15/18 [facility] your visit today, we recorded the following information about you: Kait Philip RN 03/20/2018 4:27 AM Signed PRIMARY CARE COORDINATION INTAKE Provider Action/FYI: Patient identified for Primary Care Coordination from: TCM Active Goals - Current status as of 01/15/2018 at 1:46 PM Most Recent Patient Stated - Get around and do things (pt-stated) Improve level of functioning, and improve her health status Other - Address all appropriate HM and disease care gaps - Annual BMP - Annual foot exam - Annual microalbumin - Annual retina exam - Blood Pressure < 130/80 150/84 (02/05/2017) - Check weight daily - Confirm medication adherence of all prescribed medications and uses them correctly - Has a plan for unexpected weight gain - HBA1C drawn quarterly - Hemoglobin A1C < 7 5.2 (10/04/2017) - LDL at or below 100 mg/dL or on a high statin - Tobacco cessation - Understands and follows a low salt diet - Understands and follows DASH diet - Weight mgmt/activity Health Maintenance Topics with due status: Overdue Topic Date Due URINE ALBUMIN:CREATININE RATIO 1975 DILATED RETINAL EXAM 1975 ONE PNEUMOVAX PRIOR TO AGE 65 1981 BLOOD PRESSURE CONTROLLED 1983 DTAP,TDAP,TD 1984 HEPATITIS C SCREENING 2009 MAMMOGRAM 09/14/2014 DIABETIC FOOT EXAM 01/28/2017 Health Maintenance Topics with due status: Due Soon Topic Date Due INFLUENZA 02/07/2018 Care Coordination: General Care Coordination (since 10/17/2017) None Social Determinants: Education (since 10/17/2017) None Health Literacy (since 10/17/2017) None Resource Strain (since 10/17/2017) None Depression (since 10/17/2017) None Diet (since 10/17/2017) None Physical Activity (since 10/17/2017) None Tobacco Use (since 10/17/2017) None Alcohol Use (since 10/17/2017) None Social Connection and Isolation (since 10/17/2017) None Intimate Partner Violence (since 10/17/2017) None Stress (since 10/17/2017) None Food Insecurity (since 10/17/2017) None Transportation Needs (since 10/17/2017) None Activities of Daily Living: Patients can perform the following activities without help: (since 10/17/2017) None Instrumental activities of daily living (since 10/17/2017) None Fall Risk: Fall Risk (since 10/17/2017) None Kait Philip RN Allergies As of Date: 01/15/2018 Noted Allergy Reaction LATEX 01/18/2009 7 - Swelling BLUEBERRY 02/02/2016 6 - Diarrhea LACTOSE INTOLERANCE (LACTASE) 03/16/2007 MUSHROOM 10/24/2015 12 - Shortness of Breath STRAWBERRY 10/24/2015 4 - Hives Date Reviewed: 02/06/2017 Reviewed by: Jaylene Frias - Fully Assessed Reason for Visit: Wet Process [facility] [3615] Cmt: Intake Prescriptions as of 01/15/2018 Sig: ALPRAZOLAM 0.5 MG TABLET Take 1 tablet by mouth every * ACETAMINOPHEN 500 MG TABLET Take 2 tablets by mouth every* DILTIAZEM SR 120 MG 24 HR CAP Take 1 capsule by mouth twice* X GABAPENTIN 300 MG CAPSULE Take 1 capsule by mouth daily* X ACETAZOLAMIDE 125 MG TABLET Take 1 tablet by mouth three * ACETAZOLAMIDE 250 MG TABLET Take 1 tablet by mouth three * GUAIFENESIN ER 1,200 MG TABLE* Take 1 tablet by mouth twice * NYSTATIN 100,000 UNIT/GRAM TO* Apply 1 application to affect* MENTHOL 0.44 %-ZINC OXIDE 20.* Apply 1 application to affect* POLYETHYLENE GLYCOL 3350 17 G* Take 1 Packet by mouth once d* ACETAMINOPHEN 325 MG TABLET Take 2 tablets by mouth every* X DILTIAZEM SR 240 MG 24 HR CAP Take 1 capsule by mouth once * X FUROSEMIDE 20 MG TABLET Take 1 tablet by mouth twice * METOPROLOL SUCCINATE ER 25 MG* Take 1 tablet by mouth once d* OXYBUTYNIN CHLORIDE ER 15 MG * Take 1 tablet by mouth once d* DICYCLOMINE 20 MG TABLET Take 1 tablet by mouth every * LISINOPRIL 5 MG TABLET Take 1 tablet by mouth once d* Patient not taking: Reported on 02/25/2018 X PANTOPRAZOLE 40 MG TABLET,DEL* Take 1 tablet by mouth once d* X TRAMADOL 50 MG TABLET Take 1 tablet by mouth three * NIFEREX-150 ORAL Take 150 mg by mouth once terry* APIXABAN 5 MG TABLET Take by mouth once daily. ALBUTEROL SULFATE HFA 90 MCG/* Inhale 2 Puffs as instructed * GLUCOSE GEL ORAL Take by mouth as needed (1 d* GLIMEPIRIDE 2 MG TABLET Take 1 tablet by mouth daily * OMEPRAZOLE 20 MG CAPSULE,HOANG* Take 1 capsule by mouth once * Patient not taking: Reported on 02/25/2018 MELOXICAM 15 MG TABLET Take 1 tablet by mouth once d* COMPOUNDED PRESCRIPTION Bariatric Hospital Bed. BUPROPION XL 150 MG TAB Take 1 tablet by mouth once d* Patient not taking: Reported on 02/25/2018 FUROSEMIDE 80 MG TABLET Take 1 tablet by mouth twice * Patient not taking: Reported on 02/25/2018 POTASSIUM CHLORIDE 20 MEQ ORA* Take 20 mEq by mouth twice da* INSULIN DETEMIR (U-100) 100 U* 10 units daily at bedtime Patient not taking: Reported on 02/25/2018 HYDROCHLOROTHIAZIDE 25 MG TAB* Take 1 tablet by mouth once d* Patient not taking: Reported on 02/25/2018 X CYCLOBENZAPRINE 10 MG TABLET Take 1 tablet by mouth three * BLOOD-GLUCOSE METER KIT 1 Each as needed. BLOOD SUGAR DIAGNOSTIC STRIPS Test blood sugar(s) 1 times d* LANCETS Test blood sugar(s) 1 times * NAPROXEN SODIUM 220 MG TABLET Take 1 tablet by mouth twice * Patient not taking: Reported on 02/25/2018 ALBUTEROL SULFATE HFA 90 MCG/* Inhale 2 Puffs as instructed * X PREDNISONE 20 MG TABLET Take 2 tablets by mouth once * * THERAPEUTIC MULTIVITAMIN TABL* Take one(1) tablet daily. Problem List As Of Date 01/15/2018 Noted Resolved BENIGN HYPERTENSION [I10] INVALID FOR* ASTHMA UNSPECIFIED [J45.909] INVALID FOR* Obesity, Class III, BMI 40-49.9 (morbid obesity*INVALID FOR* GENERAL OSTEOARTHROSIS [M15.9] INVALID FOR* LUMBAGO [M54.5] INVALID FOR* Pure Hyperglyceridemia [E78.1] INVALID FOR* Cholelithiasis [K80.20] INVALID FOR* Sleep apnea [G47.30] INVALID FOR* Leg pain, bilateral [M79.604, M79.605] INVALID FOR* Mixed hyperlipidemia [E78.2] INVALID FOR* Type 2 diabetes mellitus without complication (*INVALID FOR* Congestive heart failure (HCC) [I50.9] INVALID FOR* Encounter Status:Closed by HUE PHELPSUSER on 03/20/18 PROGRESS Observed: 01/14/2018 Status: COMPLETED Source: [place] 3:44 PM [facility] REPOSITORY HNO ID: [id number] Author: Cedrick Carballo (Rn) Service: (none) Author Type: Registered Nurse Type: Progress Notes Filed: 01/19/2018 3:45 PM Note Text: TRANSITION CARE MANAGEMENT (TCM) INITIAL CONTACT Provider Action/FYI: 1. Pt denies CP/ Sob, has edema in her legs, instructed to cough and deep breath, and use IS every hour, to prevent Pneumonia, Pt verbalized understanding 2. Pt uses walker is less mobile, instructed to move frequently to increase circulation and improve lymphedema and wound healing. Pt noted she will try. Discussed a heart healthy/ DM diet. Pt verbalized understanding. 3. Pt denies fever, reports left top of left leg has dressing intact, Pt states she is not able to see the dressing, but had red drainage present, [facility] SN visit 01/14/18 for dressing change, plan 3x wk, then 2x wk then wkly visits for 7 wks. 4. Health Maintenance reviewed, instructed Pt to call her insurance to verify which Opthalmologist is covered under her insurance and Pt will schedule visit, Pt is declining a Pap 5. Scheduled Appt with Dr. Mace 01/19/18, discussed importance of keeping Pcp Appt, Labs pended and new medications pended for Pcp review. please complete a DM Foot Exam at Appt if able-Thanks. Initial contact with patient post discharge, 01/15/18 spoke to Pt . Patient identified by name and . SUMMARY: -Pt discharged from [facility] TCU 10/09/17-01/13/18. -Follow up appointment : Pcp Appt 01/19/18 -Medication review done 01/15/18. -Admitted for: Left Thigh Abscess, Sepsis, Anemia acute on chronic blood loss anemia, Morbid obesity, Anemia (Chronic), GERD (gastroesophageal reflux disease) (Chronic), Irritable bowel syndrome (Chronic) Overactive bladder (Chronic), Wide-complex tachycardia (Chronic), Chronic diastolic CHF (congestive heart failure) (Chronic), Type 2 diabetes mellitus (Chronic),HgbA1c 06/2016 6.5%. Asthma (Chronic), HTN (hypertension) (Chronic), HLD (hyperlipidemia) (Chronic), Spinal stenosis (Chronic), RICKI (obstructive sleep apnea) (Chronic), Toe pain, left (Chronic) Toe pain, right (Chronic), Onychomycosis (Chronic), Ulcer of right foot with fat layer exposed (Chronic), Diabetes mellitus with polyneuropathy (Chronic), Morbid (severe) obesity with alveolar hypoventilation (Chronic), Lymphedema (Chronic), Venous insufficiency (chronic) (peripheral) (Chronic) NEW MEDICATIONS: Tylenol 1000 mg po every 8 hrs Prn Cardizem 120 mg po Bid Xanax 0.5 mg po every 6 hrs Gabapentin 300 mg po HS Diamox 125 mg po Tid ( Dosage change) MEDS HELD/DISCONTINUED: BRIEF HOSPITAL COURSE: Operations: None Procedures: None Summary of Care Provided: The patient is a 52 year old Female with below past medical history hospitalized for sepsis secondary to left thigh abscess, underwent debridement per Dr. Tran with wound vac placement, admitted to TCU for rehabilitation, strengthening, wound care, IV antibiotics, prior to discharge home with spouse. Discharge home with spouse, and Home Health Services. Discharge Diet: No Restrictions Discharge Activity: Return to Normal Activity, May Shower, Use Walker Weight Bearing Status: Weight bearing as tolerated Call your doctor if you observe: Fever of 101 or Higher, Inability to urinate, Inability to have a bowel movement, Shortness of breath, Chest pain, Uncontrolled pain Thank You, Kait Philip RN January 14, 2018 3:48 PM Kait Philip RN January 15, 2018 1:26 PM PROGRESS Observed: 01/14/2018 Status: COMPLETED Source: [place] 3:28 PM [facility] REPOSITORY HNO ID: [id number] Author: Valeria Mace Service: (none) Author Type: Physician Type: Progress Notes Filed: 01/21/2018 4:47 PM Note Text: Noted and agree Valeria Mace MD PROGRESS Observed: 01/14/2018 Status: COMPLETED Source: [place] 1:19 PM [facility] REPOSITORY HNO ID: [id number] Author: Cedrick Carballo (Rn) Service: (none) Author Type: Registered Nurse Type: Progress Notes Filed: 01/21/2018 4:47 PM Note Text: PRIMARY CARE COORDINATION FOLLOW-UP NOTE Provider Action/MOLLY Spk with Pcp's office [place] to verify if Pcp will follow for HHC, Call to Xenia Bea[facility] H[facility] notified Pcp will follow for SN. Patient identified by name and date of . YES Signature Kait Philip RN January 14, 2018 PROGRESS Observed: 01/14/2018 Status: COMPLETED Source: [place] 10:34 AM [facility] REPOSIT[facility] HNO ID: [id number] Author: Joan Cortez Service: (none) Author Type: Medical Health Researcher Type: Progress Notes Filed: 01/14/2018 10:39 AM Note Text: TRANSITION CARE MANAGEMENT (TCM) DISCHARGE FROM POST ACUTE FACILITY POST ACUTE TRANSFER SUMMARY: - Spoke to: Facility member - Pt discharged Home on 01-13-18. - Records requested [facility], TCU discharge medication list discharge instructions labs and imaging. CNPTOUTREACH Observed: 01/14/2018 Status: COMPLETED Source: [place] 12:00 AM [facility] REPOSITORY Patient Outreach (FAMPWS) EMILEE BASSETT ([id number]) 1965 F Date Time Provider Department 01/14/18 CEDRICK VEGA) FAMPWS During your visit today, we recorded the following information about you: Kait Philip RN 01/19/2018 3:45 PM Signed TRANSITION CARE MANAGEMENT (TCM) INITIAL CONTACT Provider Action/FYI: 1. Pt denies CP/ Sob, has edema in her legs, instructed to cough and deep breath, and use IS every hour, to prevent Pneumonia, Pt verbalized understanding 2. Pt uses walker is less mobile, instructed to move frequently to increase circulation and improve lymphedema and wound healing. Pt noted she will try. Discussed a heart healthy/ DM diet. Pt verbalized understanding. 3. Pt denies fever, reports left top of left leg has dressing intact, Pt states she is not able to see the dressing, but had red drainage present, [facility] SN visit 01/14/18 for dressing change, plan 3x wk, then 2x wk then wkly visits for 7 wks. 4. Health Maintenance reviewed, instructed Pt to call her insurance to verify which Opthalmologist is covered under her insurance and Pt will schedule visit, Pt is declining a Pap 5. Scheduled Appt with Dr. Mace 01/19/18, discussed importance of keeping Pcp Appt, Labs pended and new medications pended for Pcp review. please complete a DM Foot Exam at Appt if able-Thanks. Initial contact with patient post discharge, 01/15/18 spoke to Pt . Patient identified by name and . SUMMARY: -Pt discharged from [facility] TCU 10/09/17-01/13/18. -Follow up appointment : Pcp Appt 01/19/18 -Medication review done 01/15/18. -Admitted for: Left Thigh Abscess, Sepsis, Anemia acute on chronic blood loss anemia, Morbid obesity, Anemia (Chronic), GERD (gastroesophageal reflux disease) (Chronic), Irritable bowel syndrome (Chronic) Overactive bladder (Chronic), Wide-complex tachycardia (Chronic), Chronic diastolic CHF (congestive heart failure) (Chronic), Type 2 diabetes mellitus (Chronic),HgbA1c 06/2016 6.5%. Asthma (Chronic), HTN (hypertension) (Chronic), HLD (hyperlipidemia) (Chronic), Spinal stenosis (Chronic), RICKI (obstructive sleep apnea) (Chronic), Toe pain, left (Chronic) Toe pain, right (Chronic), Onychomycosis (Chronic), Ulcer of right foot with fat layer exposed (Chronic), Diabetes mellitus with polyneuropathy (Chronic), Morbid (severe) obesity with alveolar hypoventilation (Chronic), Lymphedema (Chronic), Venous insufficiency (chronic) (peripheral) (Chronic) NEW MEDICATIONS: Tylenol 1000 mg po every 8 hrs Prn Cardizem 120 mg po Bid Xanax 0.5 mg po every 6 hrs Gabapentin 300 mg po HS Diamox 125 mg po Tid ( Dosage change) MEDS HELD/DISCONTINUED: BRIEF HOSPITAL COURSE: Operations: None Procedures: None Summary of Care Provided: The patient is a 52 year old Female with below past medical history hospitalized for sepsis secondary to left thigh abscess, underwent debridement per Dr. Tran with wound vac placement, admitted to TCU for rehabilitation, strengthening, wound care, IV antibiotics, prior to discharge home with spouse. Discharge home with spouse, and Home Health Services. Discharge Diet: No Restrictions Discharge Activity: Return to Normal Activity, May Shower, Use Walker Weight Bearing Status: Weight bearing as tolerated Call your doctor if you observe: Fever of 101 or Higher, Inability to urinate, Inability to have a bowel movement, Shortness of breath, Chest pain, Uncontrolled pain Thank You, Kait Philip RN January 14, 2018 3:48 PM Kait Philip RN January 15, 2018 1:26 PM Allergies As of Date: 01/14/2018 Noted Allergy Reaction LATEX 01/18/2009 7 - Swelling BLUEBERRY 02/02/2016 6 - Diarrhea LACTOSE INTOLERANCE (LACTASE) 03/16/2007 MUSHROOM 10/24/2015 12 - Shortness of Breath STRAWBERRY 10/24/2015 4 - Hives Date Reviewed: 02/06/2017 Reviewed by: Jaylene Frias - Fully Assessed Reason for Visit: Wet Process [facility] Follow Up [3610] Cmt: [facility] TCU D/C 01/13/18 Primary Visit Diagnosis:Type 2 diabetes mellitus without complication, without long-term current use of insulin (HCC) [E11.9] Other Visit Diagnoses:Congestive heart failure, unspecified HF chronicity, unspecified heart failure type (HCC) [I50.9] Anxiety [F41.9] Order(s):ALBUMIN/CREAT RATIO RND UR [SQUACR] Order #: [id number] FUTURE acetaZOLAMIDE 250 mg tab(s) (DIAMOX)Disp: Rfl: Prescriptions as of 01/14/2018 Sig: FUROSEMIDE 20 MG TABLET Take 1 tablet by mouth twice * NYSTATIN 100,000 UNIT/GRAM TO* Apply 1 application to affect* MENTHOL 0.44 %-ZINC OXIDE 20.* Apply 1 application to affect* METOPROLOL SUCCINATE ER 25 MG* Take 1 tablet by mouth once d* DICYCLOMINE 20 MG TABLET Take 1 tablet by mouth every * PANTOPRAZOLE 40 MG TABLET,DEL* Take 1 tablet by mouth once d* NIFEREX-150 ORAL Take 150 mg by mouth once terry* ALBUTEROL SULFATE HFA 90 MCG/* Inhale 2 Puffs as instructed * GLIMEPIRIDE 2 MG TABLET Take 1 tablet by mouth daily * CYCLOBENZAPRINE 10 MG TABLET Take 1 tablet by mouth three * BLOOD-GLUCOSE METER KIT 1 Each as needed. BLOOD SUGAR DIAGNOSTIC STRIPS Test blood sugar(s) 1 times d* LANCETS Test blood sugar(s) 1 times * * THERAPEUTIC MULTIVITAMIN TABL* Take one(1) tablet daily. ALPRAZOLAM 0.5 MG TABLET Take 1 tablet by mouth every * ACETAMINOPHEN 500 MG TABLET Take 2 tablets by mouth every* DILTIAZEM SR 120 MG 24 HR CAP Take 1 capsule by mouth twice* GABAPENTIN 300 MG CAPSULE Take 1 capsule by mouth daily* ACETAZOLAMIDE 125 MG TABLET Take 1 tablet by mouth three * DILTIAZEM SR 240 MG 24 HR CAP Take 1 capsule by mouth once * ACETAZOLAMIDE 250 MG TABLET Take 1 tablet by mouth three * GUAIFENESIN ER 1,200 MG TABLE* Take 1 tablet by mouth twice * POLYETHYLENE GLYCOL 3350 17 G* Take 1 Packet by mouth once d* ACETAMINOPHEN 325 MG TABLET Take 2 tablets by mouth every* OXYBUTYNIN CHLORIDE ER 15 MG * Take 1 tablet by mouth once d* LISINOPRIL 5 MG TABLET Take 1 tablet by mouth once d* TRAMADOL 50 MG TABLET Take 1 tablet by mouth three * APIXABAN 5 MG TABLET Take by mouth once daily. GLUCOSE GEL ORAL Take by mouth as needed (1 d* OMEPRAZOLE 20 MG CAPSULE,HOANG* Take 1 capsule by mouth once * MELOXICAM 15 MG TABLET Take 1 tablet by mouth once d* COMPOUNDED PRESCRIPTION Bariatric Hospital Bed. BUPROPION XL 150 MG TAB Take 1 tablet by mouth once d* FUROSEMIDE 80 MG TABLET Take 1 tablet by mouth twice * POTASSIUM CHLORIDE 20 MEQ ORA* Take 20 mEq by mouth twice da* INSULIN DETEMIR (U-100) 100 U* 10 units daily at bedtime HYDROCHLOROTHIAZIDE 25 MG TAB* Take 1 tablet by mouth once d* NAPROXEN SODIUM 220 MG TABLET Take 1 tablet by mouth twice * ALBUTEROL SULFATE HFA 90 MCG/* Inhale 2 Puffs as instructed * Problem List As Of Date 01/14/2018 Noted Resolved BENIGN HYPERTENSION [I10] INVALID FOR* ASTHMA UNSPECIFIED [J45.909] INVALID FOR* Obesity, Class III, BMI 40-49.9 (morbid obesity*INVALID FOR* GENERAL OSTEOARTHROSIS [M15.9] INVALID FOR* LUMBAGO [M54.5] INVALID FOR* Pure Hyperglyceridemia [E78.1] INVALID FOR* Cholelithiasis [K80.20] INVALID FOR* Sleep apnea [G47.30] INVALID FOR* Leg pain, bilateral [M79.604, M79.605] INVALID FOR* Mixed hyperlipidemia [E78.2] INVALID FOR* Type 2 diabetes mellitus without complication (*INVALID FOR* Congestive heart failure (HCC) [I50.9] INVALID FOR* Prescriptions ordered this encounter Disp Refills Start End ACETAZOLAMIDE 250 MG TABLET 01/19/2018 01/20/2018 Route: ORAL Disposition: Return in about 4 weeks (around 02/11/2018). Follow-up and Disposition History Recorded Encounter Status:Closed by VALERIA MACE MD on 01/19/18 [place] Observed: 01/14/2018 Status: COMPLETED Source: [place] 12:00 AM [facility] REPOSITORY Patient Outreach (FAMPWS) EMILEE BASSETT ([id number]) 1965 F Date Time Provider Department 01/14/18 CEDRICK LucasRN) FAMPWS During your visit today, we recorded the following information about you: Kait Philip RN 01/21/2018 4:47 PM Signed PRIMARY CARE COORDINATION FOLLOW-UP NOTE Provider Action/PRESTONI Spk with Pcp's office [place] to verify if Pcp will follow for HHC, Call to Xenia Beavers [facility] notified Pcp will follow for SN. Patient identified by name and date of . YES Signature Kait Philip RN January 14, 2018 Valeria Mace MD 01/21/2018 4:47 PM Signed Noted and agree Valeria Mace MD Allergies As of Date: 01/14/2018 Noted Allergy Reaction LATEX 01/18/2009 7 - Swelling BLUEBERRY 02/02/2016 6 - Diarrhea LACTOSE INTOLERANCE (LACTASE) 03/16/2007 MUSHROOM 10/24/2015 12 - Shortness of Breath STRAWBERRY 10/24/2015 4 - Hives Date Reviewed: 02/06/2017 Reviewed by: Jaylene Frias - Fully Assessed Reason for Visit: Wet Process [facility] Follow Up [8265] Cmt: [facility] Reason For Visit History Recorded Prescriptions as of 01/14/2018 Sig: DILTIAZEM SR 240 MG 24 HR CAP Take 1 capsule by mouth once * ACETAZOLAMIDE 250 MG TABLET Take 1 tablet by mouth three * FUROSEMIDE 20 MG TABLET Take 1 tablet by mouth twice * GUAIFENESIN ER 1,200 MG TABLE* Take 1 tablet by mouth twice * NYSTATIN 100,000 UNIT/GRAM TO* Apply 1 application to affect* MENTHOL 0.44 %-ZINC OXIDE 20.* Apply 1 application to affect* POLYETHYLENE GLYCOL 3350 17 G* Take 1 Packet by mouth once d* ACETAMINOPHEN 325 MG TABLET Take 2 tablets by mouth every* METOPROLOL SUCCINATE ER 25 MG* Take 1 tablet by mouth once d* OXYBUTYNIN CHLORIDE ER 15 MG * Take 1 tablet by mouth once d* DICYCLOMINE 20 MG TABLET Take 1 tablet by mouth every * PANTOPRAZOLE 40 MG TABLET,DEL* Take 1 tablet by mouth once d* LISINOPRIL 5 MG TABLET Take 1 tablet by mouth once d* TRAMADOL 50 MG TABLET Take 1 tablet by mouth three * NIFEREX-150 ORAL Take 150 mg by mouth once terry* APIXABAN 5 MG TABLET Take by mouth once daily. ALBUTEROL SULFATE HFA 90 MCG/* Inhale 2 Puffs as instructed * GLUCOSE GEL ORAL Take by mouth as needed (1 d* GLIMEPIRIDE 2 MG TABLET Take 1 tablet by mouth daily * OMEPRAZOLE 20 MG CAPSULE,HOANG* Take 1 capsule by mouth once * MELOXICAM 15 MG TABLET Take 1 tablet by mouth once d* COMPOUNDED PRESCRIPTION Bariatric Hospital Bed. BUPROPION XL 150 MG TAB Take 1 tablet by mouth once d* FUROSEMIDE 80 MG TABLET Take 1 tablet by mouth twice * POTASSIUM CHLORIDE 20 MEQ ORA* Take 20 mEq by mouth twice da* INSULIN DETEMIR (U-100) 100 U* 10 units daily at bedtime HYDROCHLOROTHIAZIDE 25 MG TAB* Take 1 tablet by mouth once d* CYCLOBENZAPRINE 10 MG TABLET Take 1 tablet by mouth three * BLOOD-GLUCOSE METER KIT 1 Each as needed. BLOOD SUGAR DIAGNOSTIC STRIPS Test blood sugar(s) 1 times d* LANCETS Test blood sugar(s) 1 times * NAPROXEN SODIUM 220 MG TABLET Take 1 tablet by mouth twice * ALBUTEROL SULFATE HFA 90 MCG/* Inhale 2 Puffs as instructed * * THERAPEUTIC MULTIVITAMIN TABL* Take one(1) tablet daily. Problem List As Of Date 01/14/2018 Noted Resolved BENIGN HYPERTENSION [I10] INVALID FOR* ASTHMA UNSPECIFIED [J45.909] INVALID FOR* Obesity, Class III, BMI 40-49.9 (morbid obesity*INVALID FOR* GENERAL OSTEOARTHROSIS [M15.9] INVALID FOR* LUMBAGO [M54.5] INVALID FOR* Pure Hyperglyceridemia [E78.1] INVALID FOR* Cholelithiasis [K80.20] INVALID FOR* Sleep apnea [G47.30] INVALID FOR* Leg pain, bilateral [M79.604, M79.605] INVALID FOR* Mixed hyperlipidemia [E78.2] INVALID FOR* Type 2 diabetes mellitus without complication (*INVALID FOR* Congestive heart failure (HCC) [I50.9] INVALID FOR* Encounter Status:Closed by KAIT PHILIP on 01/21/18 PROGRESS Observed: 01/13/2018 Status: COMPLETED Source: [place] 1:01 PM [facility] REPOSITORY HNO ID: [id number] Author: Cedrick Carballo (Rn) Service: (none) Author Type: Registered Nurse Type: Progress Notes Filed: 01/21/2018 4:47 PM Note Text: PRIMARY CARE COORDINATION FOLLOW-UP NOTE Provider Action/FYI Call from [facility] Xenia to verify if PCP will follow for SN Patient identified by name and date of . YES Spoke to [facility] Signature Kait Philip RN January 13, 2018 BEDSIDE GLUCOSE Collected: 01/13/2018 Status: F Source: [place] 11:10 AM [facility] REPOSITORY TYPE CODE TESTS RESULT OUT OF REFERENCE UNITS RANGE LAB L501.080 70-110 mg/dL High BEDSIDE GLU 157 Result Comment: MANAGEMENT OF PATIENT CARE PER NURSING PROTOCOL Performed By: #### L501.080 #### Yol[facility] Point of Care [address] [place], [place] [address] BEDSIDE GLUCOSE Collected: 01/13/2018 Status: F Source: [place] 6:37 AM [facility] REPOSITORY TYPE CODE TESTS RESULT OUT OF REFERENCE UNITS RANGE LAB L501.080 70-110 mg/dL High BEDSIDE GLU 125 Result Comment: MANAGEMENT OF PATIENT CARE PER NURSING PROTOCOL Performed By: #### L501.080 #### [facility] Point of Care [address] [place] [address] CNPTOUTREACH Observed: 01/13/2018 Status: COMPLETED Source: [place] 12:00 AM [facility] REPOSITORY Patient Outreach (FAMPWS) EMILEE BASSETT ([id number]) 1965 F Date Time Provider Department 01/13/18 CEDRICK LucasRN) FAMPWS During your visit today, we recorded the following information about you: Kait Philip RN 01/21/2018 4:47 PM Signed PRIMARY CARE COORDINATION FOLLOW-UP NOTE Provider Action/FYI Call from [facility] Xenia to verify if PCP will follow for SN Patient identified by name and date of . YES Spoke to [facility] Signature Kait Philip RN January 13, 2018 Allergies As of Date: 01/13/2018 Noted Allergy Reaction LATEX 01/18/2009 7 - Swelling BLUEBERRY 02/02/2016 6 - Diarrhea LACTOSE INTOLERANCE (LACTASE) 03/16/2007 MUSHROOM 10/24/2015 12 - Shortness of Breath STRAWBERRY 10/24/2015 4 - Hives Date Reviewed: 02/06/2017 Reviewed by: Jaylene Frias - Fully Assessed Reason for Visit: Wet Process [facility] Follow Up [4933] Cmt: [facility] D/C 01/13/18 Dx: Sepsis, Left thigh abscess, Anemia, Prescriptions as of 01/13/2018 Sig: DILTIAZEM SR 240 MG 24 HR CAP Take 1 capsule by mouth once * ACETAZOLAMIDE 250 MG TABLET Take 1 tablet by mouth three * FUROSEMIDE 20 MG TABLET Take 1 tablet by mouth twice * GUAIFENESIN ER 1,200 MG TABLE* Take 1 tablet by mouth twice * NYSTATIN 100,000 UNIT/GRAM TO* Apply 1 application to affect* MENTHOL 0.44 %-ZINC OXIDE 20.* Apply 1 application to affect* POLYETHYLENE GLYCOL 3350 17 G* Take 1 Packet by mouth once d* ACETAMINOPHEN 325 MG TABLET Take 2 tablets by mouth every* METOPROLOL SUCCINATE ER 25 MG* Take 1 tablet by mouth once d* OXYBUTYNIN CHLORIDE ER 15 MG * Take 1 tablet by mouth once d* DICYCLOMINE 20 MG TABLET Take 1 tablet by mouth every * PANTOPRAZOLE 40 MG TABLET,DEL* Take 1 tablet by mouth once d* LISINOPRIL 5 MG TABLET Take 1 tablet by mouth once d* TRAMADOL 50 MG TABLET Take 1 tablet by mouth three * NIFEREX-150 ORAL Take 150 mg by mouth once terry* APIXABAN 5 MG TABLET Take by mouth once daily. ALBUTEROL SULFATE HFA 90 MCG/* Inhale 2 Puffs as instructed * GLUCOSE GEL ORAL Take by mouth as needed (1 d* GLIMEPIRIDE 2 MG TABLET Take 1 tablet by mouth daily * OMEPRAZOLE 20 MG CAPSULE,HOANG* Take 1 capsule by mouth once * MELOXICAM 15 MG TABLET Take 1 tablet by mouth once d* COMPOUNDED PRESCRIPTION Bariatric Hospital Bed. BUPROPION XL 150 MG TAB Take 1 tablet by mouth once d* FUROSEMIDE 80 MG TABLET Take 1 tablet by mouth twice * POTASSIUM CHLORIDE 20 MEQ ORA* Take 20 mEq by mouth twice da* INSULIN DETEMIR (U-100) 100 U* 10 units daily at bedtime HYDROCHLOROTHIAZIDE 25 MG TAB* Take 1 tablet by mouth once d* CYCLOBENZAPRINE 10 MG TABLET Take 1 tablet by mouth three * BLOOD-GLUCOSE METER KIT 1 Each as needed. BLOOD SUGAR DIAGNOSTIC STRIPS Test blood sugar(s) 1 times d* LANCETS Test blood sugar(s) 1 times * NAPROXEN SODIUM 220 MG TABLET Take 1 tablet by mouth twice * ALBUTEROL SULFATE HFA 90 MCG/* Inhale 2 Puffs as instructed * * THERAPEUTIC MULTIVITAMIN TABL* Take one(1) tablet daily. Problem List As Of Date 01/13/2018 Noted Resolved BENIGN HYPERTENSION [I10] INVALID FOR* ASTHMA UNSPECIFIED [J45.909] INVALID FOR* Obesity, Class III, BMI 40-49.9 (morbid obesity*INVALID FOR* GENERAL OSTEOARTHROSIS [M15.9] INVALID FOR* LUMBAGO [M54.5] INVALID FOR* Pure Hyperglyceridemia [E78.1] INVALID FOR* Cholelithiasis [K80.20] INVALID FOR* Sleep apnea [G47.30] INVALID FOR* Leg pain, bilateral [M79.604, M79.605] INVALID FOR* Mixed hyperlipidemia [E78.2] INVALID FOR* Type 2 diabetes mellitus without complication (*INVALID FOR* Congestive heart failure (HCC) [I50.9] INVALID FOR* Encounter Status:Closed by KAIT PHILIP on 01/21/18 HOME HEALTH PROGRESS Observed: 01/12/2018 Status: F Source: [place] NOTE 9:46 PM [facility] REPOSITORY [facility] Medical Records Department [address] [place] [id number] Home Health Progress Note Usvk-[id number] Encounter Encounter Date: 01/12/182143 MR#: [id number] Acct: [id number] Name: EMILEE BASSETT Rep #: [id number] : 1965 52 From: Jovani Branch MD PCP: Rodri RUBI,Valeria Status: ADM IN Location: [place] [address] Home Health Note - Plan Overview of reason of hospitalization: The patient is a 52 year old Female with below past medical history hospitalized for sepsis secondary to left thigh abscess, underwent debridement per Dr. Tran with wound vac placement, admitted to TCU for rehabilitation, strengthening, wound care, IV antibiotics, prior to discharge home with spouse. Discharge home with spouse, and Home Health Services. Problems: Complete List of Medical Problems Complicated open wound of left thigh (Acute) History of necrotizing fasciitis (Acute) Abscess of left thigh (Acute) acute on chronic blood loss anemia (Chronic) CAP (community acquired pneumonia) (Acute) Lower GI bleed (Acute) Acute and chronic respiratory failure with hypoxia (Acute) Acute on chronic diastolic heart failure (Acute) Acute bronchitis with asthma with acute exacerbation (Acute) Shortness of breath (Acute) Acute on chronic diastolic heart failure (Acute) Acute bronchitis (Acute) Atrial fibrillation with RVR (Acute) Otitis externa (Acute) Metabolic alkalosis (Acute) Blood in stool (Acute) Morbid obesity (Chronic) Anemia (Chronic) GERD (gastroesophageal reflux disease) (Chronic) Irritable bowel syndrome (Chronic) Overactive bladder (Chronic) Wide-complex tachycardia (Chronic) Chronic diastolic CHF (congestive heart failure) (Chronic) Type 2 diabetes mellitus (Chronic) 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) Lymphedema (Chronic) Venous insufficiency (chronic) (peripheral) (Chronic) - Requirements and Reasons Disciplines Needed/Ordered: Penitentiary Reason for Disciplines: Wound Care Related To: Change in Medical Treatment Plan, Physical Impairments Patient is unable to leave the home: Without Aid of Supportive Devices (crutches, cane, wheelchair, walker), Without the assistance of another person 01/12/182145 <Electronically signed by Jovani Branch MD> Date Jovani Branch MD Cosigner Signature (if indicated): Date CC: Signed DISCHARGE SUMMARY Observed: 01/12/2018 Status: F Source: [place] 9:44 PM [facility] REPOSITORY [facility] Medical Records Department [facility] [place] [address] Discharge Summary 01/12/180 MR#: [id number] Acct: [id number] Name: EMILEE BASSETT Rep #: [id number] : 1965 52 From: Jovani Branch MD PCP: Valeria Mace MD Status: ADM IN Y Location: [place] [address] Discharge Date and Diagnosis Date of Admission: 10/09/17 Date of Discharge: 01/13/18 - Secondary Discharge Diagnosis Chronic Problems acute on chronic blood loss anemia (Chronic) Morbid obesity (Chronic) Anemia (Chronic) GERD (gastroesophageal reflux disease) (Chronic) Irritable bowel syndrome (Chronic) Overactive bladder (Chronic) Wide-complex tachycardia (Chronic) Chronic diastolic CHF (congestive heart failure) (Chronic) Type 2 diabetes mellitus (Chronic) HgbA1c 06/2016 6.5%. 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) Lymphedema (Chronic) Venous insufficiency (chronic) (peripheral) (Chronic) Hospital Course and Treatment Imaging Results: Labs (Last 48 Hours) WBC RBC Hgb Hct MCV MCH MCHC RDW RDW Differential Plt Count MPV Immature Gran % (Auto) Consultations 11/14/17 Consult: Onc/Wound/animal damage control agent Routine Comment: Comments:: lt inner thigh wound Operations: None Procedures: None Summary of Care Provided: The patient is a 52 year old Female with below past medical history hospitalized for sepsis secondary to left thigh abscess, underwent debridement per Dr. Tran with wound vac placement, admitted to TCU for rehabilitation, strengthening, wound care, IV antibiotics, prior to discharge home with spouse. Discharge home with spouse, and Home Health Services. Discharge Diet: No Restrictions Discharge Activity: Return to Normal Activity, May Shower, Use Walker Weight Bearing Status: Weight bearing as tolerated Call your doctor if you observe: Fever of 101 or Higher, Inability to urinate, Inability to have a bowel movement, Shortness of breath, Chest pain, Uncontrolled pain Home Medications: Medications to take at Discharge Albuterol Sulfate [Ventolin Hfa] 2 puff INHALATION Q4H PRN PRN 01/08/17 Pantoprazole Sodium [Protonix] 40 mg PO DAILY 02/13/17 Metoprolol(XL)Succ [Toprol Xl (Beta Vikki)] 25 mg PO DAILY 03/06/17 Dicyclomine HCl [Bentyl] 20 mg PO Q6H PRN PRN 03/10/17 Multivitamin [Daily Multiple Vitamin] 1 each PO DAILY 08/05/17 AcetaAZOLAMIDE [Diamox] 250 mg PO TID #90 tab 10/21/17 Furosemide [Lasix] 20 mg PO BIDLX #60 tab 10/21/17 Menthol/Lanolin/Calamine/Znox [Calmoseptine Ointment] 1 applic TOPICAL TID tube 10/21/17 Nystatin Powder [Mycostatin Powder] 1 applic TOPICAL 0600,2200 #1 bottle 10/21/17 ALPRAZolam [Xanax] 0.5 mg PO Q6H PRN PRN #30 tab 01/12/18 AcetaAZOLAMIDE [Diamox] 125 mg PO TID tablet 01/12/18 Acetaminophen [Tylenol] 1,000 mg PO Q8H PRN tablet 01/12/18 Cyclobenzaprine [Flexeril] 10 mg PO TID PRN PRN #90 tab 01/12/18 Diltiazem CD [Cardizem CD] 120 mg PO BID capsule 01/12/18 Furosemide [Lasix] 20 mg PO BIDLX tablet 01/12/18 Gabapentin [Neurontin] 300 mg PO HS #30 cap 01/12/18 Iron Polysaccharide Complex [Ferrex 150] 150 mg PO BID #60 cap 01/12/18 Metoprolol(XL)Succ [Toprol Xl (Beta Vikki)] 25 mg PO DAILY tablet 01/12/18 Nutritional Supplement [Saul - ORANGE FLAVOR] 1 packet PO BIDCM packet 01/12/18 Nystatin Powder [Mycostatin Powder] 1 applic TOPICAL 0600,2200 bottle 01/12/18 Pantoprazole Sodium [Protonix] 40 mg PO DAILY tablet 01/12/18 Following Prescrptions Were Given to Patient: ALPRAZolam [Xanax] 0.5 mg PO Q6H PRN PRN #30 tab PRN Reason: ANXIETY Cyclobenzaprine [Flexeril] 10 mg PO TID PRN PRN #90 tab PRN Reason: muscle spasms Gabapentin [Neurontin] 300 mg PO HS #30 cap Iron Polysaccharide Complex [Ferrex 150] 150 mg PO BID #60 cap Primary Care Physician: Valeria Mace MD [Primary Care Provider] - Please follow up with your Primary Care Physician in: 1 week. Disposition: Home with Home Health Minutes spent on discharge:: 35 Patient Condition:: Stable Medical Necessity - Tobacco Use Smoking Status: Former smoker Meaningful Use Info Meaningful Use Diagnoses (Choose all that apply): None applicable 01/12/182143 <Electronically signed by Jovani Branch MD> Date Jovani Branch MD Cosigner Signature (if applicable): Date CC: Valeria Mace MD; Jovani Branch MD Signed DISCHARGE INSTRUCTION Observed: 01/12/2018 Status: F Source: [place] 9:40 PM [facility] REPOSITORY [facility] Medical Records Department [address] [place] [address] Instructions for Home/Discharge Instructions 01/12/188 MR#: [id number] Acct: [id number] Name: EMILEE BASSETT Rep #: [id number] : 1965 52 From: Jovani Branch MD PCP: Valeria Mace MD Status: ADM IN You will use the following diet at home:: No restrictions, Regular Your food should be the consistency of: Regular Your liquids should be the consistency of: Regular/Thin Discharge Activity: Return to Normal Activity, May Shower, Use Walker Weight Bearing Status: Weight bearing as tolerated Call your doctor if you observe: Fever of 101 or Higher, Inability to urinate, Inability to have a bowel movement, Shortness of breath, Chest pain, Uncontrolled pain Allergies/Adverse Reactions: Allergies latex Allergy (Verified 08/05/17 21:19) Rash levofloxacin [From Levaquin] Adverse Reaction (Verified 08/05/17 21:19) SPEEDS UP MY HEART AND SHUTS DOWN MY KIDNEYS mushrooms Allergy (Uncoded 08/05/17 21:19) Anaphylaxis STRAWBERRIES Allergy (Uncoded 08/05/17 21:19) Rash Medications to take at Discharge Albuterol Sulfate [Ventolin Hfa] 2 puff INHALATION Q4H PRN PRN 01/08/17 Pantoprazole Sodium [Protonix] 40 mg PO DAILY 02/13/17 Metoprolol(XL)Succ [Toprol Xl (Beta Vikki)] 25 mg PO DAILY 03/06/17 Dicyclomine HCl [Bentyl] 20 mg PO Q6H PRN PRN 03/10/17 Multivitamin [Daily Multiple Vitamin] 1 each PO DAILY 08/05/17 AcetaAZOLAMIDE [Diamox] 250 mg PO TID #90 tab 10/21/17 Furosemide [Lasix] 20 mg PO BIDLX #60 tab 10/21/17 Menthol/Lanolin/Calamine/Znox [Calmoseptine Ointment] 1 applic TOPICAL TID tube 10/21/17 Nystatin Powder [Mycostatin Powder] 1 applic TOPICAL 0600,2200 #1 bottle 10/21/17 ALPRAZolam [Xanax] 0.5 mg PO Q6H PRN PRN #30 tab 01/12/18 AcetaAZOLAMIDE [Diamox] 125 mg PO TID tablet 01/12/18 Acetaminophen [Tylenol] 1,000 mg PO Q8H PRN tablet 01/12/18 Cyclobenzaprine [Flexeril] 10 mg PO TID PRN PRN #90 tab 01/12/18 Diltiazem CD [Cardizem CD] 120 mg PO BID capsule 01/12/18 Furosemide [Lasix] 20 mg PO BIDLX tablet 01/12/18 Gabapentin [Neurontin] 300 mg PO HS #30 cap 01/12/18 Iron Polysaccharide Complex [Ferrex 150] 150 mg PO BID #60 cap 01/12/18 Metoprolol(XL)Succ [Toprol Xl (Beta Vikki)] 25 mg PO DAILY tablet 01/12/18 Nutritional Supplement [Saul - ORANGE FLAVOR] 1 packet PO BIDCM packet 01/12/18 Nystatin Powder [Mycostatin Powder] 1 applic TOPICAL 0600,2200 bottle 01/12/18 Pantoprazole Sodium [Protonix] 40 mg PO DAILY tablet 01/12/18 The following prescriptions were given: ALPRAZolam [Xanax] 0.5 mg PO Q6H PRN PRN #30 tab PRN Reason: ANXIETY Cyclobenzaprine [Flexeril] 10 mg PO TID PRN PRN #90 tab PRN Reason: muscle spasms Gabapentin [Neurontin] 300 mg PO HS #30 cap Iron Polysaccharide Complex [Ferrex 150] 150 mg PO BID #60 cap Primary Care Physician: Valeria Mace MD [Primary Care Provider] - Please follow up with your Primary Care Physician in: 1 week. Test Results: Test results from this visit will be discussed in further detail at your follow-up appointment, if applicable. Proposed Discharge Date: 01/13/18 01/12/182139 <Electronically signed by Jovani Branch MD> Date Jovani Branch MD CC: Andrzej Tran MD; Mague Stevenson DPM; Valeria Mace MD; Ana Melton MD BEDSIDE GLUCOSE Collected: 01/12/2018 Status: F Source: [place] 9:06 PM [facility] REPOSITORY TYPE CODE TESTS RESULT OUT OF REFERENCE UNITS RANGE LAB L501.080 70-110 mg/dL High BEDSIDE GLU 213 Result Comment: MANAGEMENT OF PATIENT CARE PER NURSING PROTOCOL Performed By: #### L501.080 #### [facility] Point of Care [address] [place] [address] BEDSIDE GLUCOSE Collected: 01/12/2018 Status: F Source: [place] 4:40 PM [facility] REPOSITORY TYPE CODE TESTS RESULT OUT OF REFERENCE UNITS RANGE LAB L501.080 70-110 mg/dL High BEDSIDE GLU 165 Result Comment: MANAGEMENT OF PATIENT CARE PER NURSING PROTOCOL Performed By: #### L501.080 #### [facility] Point of Care [address] [place] [address] PROGRESS Observed: 01/12/2018 Status: COMPLETED Source: [place] 12:44 PM [facility] REPOSITORY HNO ID: [id number] Author: Joan Cortez Service: (none) Author Type: Medical Health Researcher Type: Progress Notes Filed: 01/12/2018 12:47 PM Note Text: Called TCU at [facility]. Patient was not discharged over the weekend. No discharge is planned yet. I will follow up on Friday. Joan Cortez MA BEDSIDE GLUCOSE Collected: 01/12/2018 Status: F Source: [place] 11:16 AM [facility] REPOSITORY TYPE CODE TESTS RESULT OUT OF REFERENCE UNITS RANGE LAB L501.080 70-110 mg/dL High BEDSIDE GLU 197 Result Comment: MANAGEMENT OF PATIENT CARE PER NURSING PROTOCOL Performed By: #### L501.080 #### [facility] Point of Care [address] [place] [address] BEDSIDE GLUCOSE Collected: 01/12/2018 Status: F Source: [place] 6:32 AM [facility] REPOSITORY TYPE CODE TESTS RESULT OUT OF REFERENCE UNITS RANGE LAB L501.080 70-110 mg/dL High BEDSIDE GLU 130 Result Comment: MANAGEMENT OF PATIENT CARE PER NURSING PROTOCOL Performed By: #### L501.080 #### [facility] Point of Care [address] [place] [address] CBC W/DIFF, AUTOMATED Collected: 01/12/2018 Status: F Source: [place] 5:18 AM [facility] REPOSITORY Order Comment: SPECIMEN OBTAINED FROM LINE DRAW TYPE CODE TESTS RESULT OUT OF RANGE REFERENCE UNITS LAB L100.1000 4.4-11.0 K/mm3 Normal WBC 8.3 LAB L100.1200 4.2-5.4 M/mm3 Low RBC 3.32 LAB L100.1300 12.0-15.0 g/dl Low HGB 9.5 LAB L100.1400 37-47 % Low HCT 31.3 LAB L100.1500 81-99 fL Normal MCV 94.3 LAB L100.1600 27.0-32.0 pg Normal MCH 28.6 LAB L100.1700 32-36 g/gl Low MCHC 30.4 LAB L100.1810 11.6-14.6 % High RDW CV 15.9 LAB L100.1820 35.1-43.9 fl High RDW SD 52.4 LAB L100.1900 150-450 K/mm3 Normal PLT 228 LAB L100.2000 6.2-12.0 fl Normal MPV 9.2 LAB L100.2100 47-70 % High NEUT% 79.7 LAB L100.2200 19-41 % Low LY% 12.0 LAB L100.2300 0-10 % Normal MONO% 5.9 LAB L100.2400 0-5 % Normal EO% 0.1 LAB L100.2500 0-1 % Normal BASO% 0.4 LAB L100.2550 0.0-0.9 % High IM GRAN % 1.900 Result Comment: IG% - Immature Granulocytes (promyelocytes, myelocytes and metamyelocytes) > 1% indicates that a LEFT SHIFT is Present. LAB L100.2620 2.0-7.7 X10 3/uL Normal Absolute Neut 6.6 LAB L100.2720 0.83-4.51 X10 3/ul Normal Absolute Lymph 0.99 Performed By: #### L100.0100 #### [facility] [address] [place], [address] BASIC METABOLIC Collected: 01/12/2018 Status: F Source: [place] PROFILE ([facility]) 5:18 AM [facility] REPOSITORY Order Comment: SPECIMEN OBTAINED FROM LINE DRAW TYPE CODE TESTS RESULT OUT OF RANGE REFERENCE UNITS LAB L501.0100 74-106 mg/dL High GLU 140 Result Comment: Fasting Glucose result greater than or equal to 126 mg/dL suggests DIABETES MELLITUS per A.D.A. criteria. Please note revised GLUCOSE reference range effective 2017. LAB L501.1000 7-18 mg/dL High BUN 56 LAB L501.1100 0.55-1.02 mg/dL Normal CREAT,SERUM 1.02 Result Comment: The validity of the calculated GFR AND GFRAA in patients over 70 years has not been determined. Clinical correlation is essential. LAB L501.1110 >60 mL/min Normal EST GFR 60 Result Comment: Non- GFR Calc LAB L501.1115 >60 mL/min Normal EST GFR - AA 73 Result Comment: GFR Calc LAB L501.1255 ml/min Normal Estimated CRCL 46.34 LAB L501.1300 10-20 RATIO High BUN/CRE 54.9 LAB L501.2200 8.5-10 mg/dL Normal .1 CA 8.9 LAB L501.5300 136-14 mmol/L Normal 5 NA 144 LAB L501.5600 3.5-5. mmol/L Normal 1 K 4.6 LAB L501.5900 98-107 mmol/L Normal CL 105 LAB L501.6100 21.0-3 mmol/L Normal 2.0 CO2 30.0 LAB L501.6200 5-15 Normal GAP 9 Performed By: #### L500.2500 #### [facility] [address] [place], [address] BEDSIDE GLUCOSE Collected: 01/11/2018 Status: F Source: [place] 8:42 PM [facility] REPOSITORY TYPE CODE TESTS RESULT OUT OF REFERENCE UNITS RANGE LAB L501.080 70-110 mg/dL High BEDSIDE GLU 176 Result Comment: MANAGEMENT OF PATIENT CARE PER NURSING PROTOCOL Performed By: #### L501.080 #### [facility] Point of Care [address] [place] [address] BEDSIDE GLUCOSE Collected: 01/11/2018 Status: F Source: [place] 4:46 PM [facility] REPOSITORY TYPE CODE TESTS RESULT OUT OF REFERENCE UNITS RANGE LAB L501.080 70-110 mg/dL High BEDSIDE GLU 166 Result Comment: MANAGEMENT OF PATIENT CARE PER NURSING PROTOCOL Performed By: #### L501.080 #### [facility] Point of Care [address] [place] [address] BEDSIDE GLUCOSE Collected: 01/11/2018 Status: F Source: [place] 11:11 AM [facility] REPOSITORY TYPE CODE TESTS RESULT OUT OF REFERENCE UNITS RANGE LAB L501.080 70-110 mg/dL High BEDSIDE GLU 209 Result Comment: MANAGEMENT OF PATIENT CARE PER NURSING PROTOCOL Performed By: #### L501.080 #### [facility] Point [facility] Care [address] [place] [address] BEDSIDE GLUCOSE Collected: 01/11/2018 Status: F Source: [place] 6:30 AM [facility] REPOSITORY TYPE CODE TESTS RESULT OUT OF REFERENCE UNITS RANGE LAB L501.080 70-110 mg/dL High BEDSIDE GLU 140 Result Comment: MANAGEMENT OF PATIENT CARE PER NURSING PROTOCOL Performed By: #### L501.080 #### [facility] Point [facility] Care [address] [place] [address] BEDSIDE GLUCOSE Collected: 01/10/2018 Status: F Source: [place] 9:18 PM [facility] REPOSITORY TYPE CODE TESTS RESULT OUT OF REFERENCE UNITS RANGE LAB L501.080 70-110 mg/dL High BEDSIDE GLU 166 Result Comment: MANAGEMENT OF PATIENT CARE PER NURSING PROTOCOL Performed By: #### L501.080 #### [facility] Point [facility] [address] [place] [address] BEDSIDE GLUCOSE Collected: 01/10/2018 Status: F Source: [place] 4:53 PM [facility] REPOSITORY TYPE CODE TESTS RESULT OUT OF REFERENCE UNITS RANGE LAB L501.080 70-110 mg/dL High BEDSIDE GLU 238 Result Comment: MANAGEMENT OF PATIENT CARE PER NURSING PROTOCOL Performed By: #### L501.080 #### [facility] Point [facility] Care [address] [place] [address] BEDSIDE GLUCOSE Collected: 01/10/2018 Status: F Source: [place] 11:11 AM [facility] REPOSITORY TYPE CODE TESTS RESULT OUT OF REFERENCE UNITS RANGE LAB L501.080 70-110 mg/dL High BEDSIDE GLU 166 Result Comment: MANAGEMENT OF PATIENT CARE PER NURSING PROTOCOL Performed By: #### L501.080 #### [facility] Point [facility] [address] [place] [address] BEDSIDE GLUCOSE Collected: 01/10/2018 Status: F Source: [place] 6:41 AM [facility] REPOSITORY TYPE CODE TESTS RESULT OUT OF REFERENCE UNITS RANGE LAB L501.080 70-110 mg/dL High BEDSIDE GLU 156 Result Comment: MANAGEMENT OF PATIENT CARE PER NURSING PROTOCOL Performed By: #### L501.080 #### [facility] Point [facility] [address] [place] [address] BEDSIDE GLUCOSE Collected: 01/09/2018 Status: F Source: [place] 9:45 PM [facility] REPOSITORY TYPE CODE TESTS RESULT OUT OF REFERENCE UNITS RANGE LAB L501.080 70-110 mg/dL High BEDSIDE GLU 260 Result Comment: MANAGEMENT OF PATIENT CARE PER NURSING PROTOCOL Performed By: #### L501.080 #### [facility] Point [facility] [address] [place] [address] BEDSIDE GLUCOSE Collected: 01/09/2018 Status: F Source: [place] 5:01 PM [facility] REPOSITORY TYPE CODE TESTS RESULT OUT OF REFERENCE UNITS RANGE LAB L501.080 70-110 mg/dL High BEDSIDE GLU 127 Result Comment: MANAGEMENT OF PATIENT CARE PER NURSING PROTOCOL Performed By: #### L501.080 #### [facility] Point [facility] [address] [place] [address] PROGRESS Observed: 01/09/2018 Status: COMPLETED Source: [place] 3:09 PM [facility] REPOSITORY HNO ID: [id number] Author: Joan Cortez Service: (none) Author Type: Medical Health Researcher Type: Progress Notes Filed: 01/09/2018 3:12 PM Note Text: Spoke with Camille, at [facility], TCU. The patient has not been discharge yet. She needs orders written by . I will follow up with TCU on January 12. Joan Cortez MA PROGRESS Observed: 01/09/2018 Status: COMPLETED Source: [place] 3:08 PM [facility] REPOSITORY HNO ID: [id number] Author: Joan Cortez Service: (none) Author Type: Medical Health Researcher Type: Progress Notes Filed: 01/09/2018 3:08 PM Note Text: Enter on the wrong encounter for the patient. Joan Cortez MA PROGRESS Observed: 01/09/2018 Status: COMPLETED Source: [place] 3:00 PM [facility] REPOSITORY HNO ID: [id number] Author: Joan Cortez Service: (none) Author Type: Medical Health Researcher Type: Progress Notes Filed: 01/09/2018 3:05 PM Note Text: Spoke to Camille, at [facility] TCU. Patient hasn't been discharge yet. There are waiting for orders to be written by . I will Make a follow up call on January 12. Joan Cortez MA BEDSIDE GLUCOSE Collected: 01/09/2018 Status: F Source: [place] 11:23 AM [facility] REPOSITORY TYPE CODE TESTS RESULT OUT OF REFERENCE UNITS RANGE LAB L501.080 70-110 mg/dL High BEDSIDE GLU 178 Result Comment: MANAGEMENT OF PATIENT CARE PER NURSING PROTOCOL Performed By: #### L501.080 #### [facility] Point [facility] Care [address] [place] [address] BEDSIDE GLUCOSE Collected: 01/09/2018 Status: F Source: [place] 7:00 AM [facility] REPOSITORY TYPE CODE TESTS RESULT OUT OF REFERENCE UNITS RANGE LAB L501.080 70-110 mg/dL High BEDSIDE GLU 111 Result Comment: MANAGEMENT OF PATIENT CARE PER NURSING PROTOCOL Performed By: #### L501.080 #### [facility] Point [facility] Care [address] [place] [address] BEDSIDE GLUCOSE Collected: 01/08/2018 Status: F Source: [place] 9:06 PM [facility] REPOSITORY TYPE CODE TESTS RESULT OUT OF REFERENCE UNITS RANGE LAB L501.080 70-110 mg/dL High BEDSIDE GLU 151 Result Comment: MANAGEMENT OF PATIENT CARE PER NURSING PROTOCOL Performed By: #### L501.080 #### [facility] Point [facility] Care [address] [place] [address] BEDSIDE GLUCOSE Collected: 01/08/2018 Status: F Source: [place] 4:54 PM [facility] REPOSITORY TYPE CODE TESTS RESULT OUT OF REFERENCE UNITS RANGE LAB L501.080 70-110 mg/dL High BEDSIDE GLU 116 Result Comment: Dr Ramos Followed MANAGEMENT OF PATIENT CARE PER NURSING PROTOCOL Performed By: #### L501.080 #### [facility] [facility] [address] [place] [address] BEDSIDE GLUCOSE Collected: 01/08/2018 Status: F Source: YOLANDA 11:16 AM [facility] REPOSITORY TYPE CODE TESTS RESULT OUT OF REFERENCE UNITS RANGE LAB L501.080 70-110 mg/dL High BEDSIDE GLU 154 Result Comment: MANAGEMENT OF PATIENT CARE PER NURSING PROTOCOL Performed By: #### L501.080 #### [facility] [address] [place] [address] BEDSIDE GLUCOSE Collected: 01/08/2018 Status: F Source: YOLANDA 6:41 AM [facility] REPOSITORY TYPE CODE TESTS RESULT OUT OF RANGE REFERENCE UNITS LAB L501.080 70-110 mg/dL Normal BEDSIDE GLU 103 Result Comment: MANAGEMENT OF PATIENT CARE PER NURSING PROTOCOL Performed By: #### L501.080 #### [facility] [address] [place] [address] PREALBUMIN Collected: 01/08/2018 Status: F Source: YOLANDA 5:06 AM [facility] REPOSITORY Order Comment: SPECIMEN OBTAINED FROM LINE DRAW TYPE CODE TESTS RESULT OUT OF REFERENCE UNITS RANGE LAB L506.0500 20.0-40.0 mg/dL Low PREALBUMIN 18.3 Performed By: #### L400.0001, L506.0500 #### [facility] [address] [place] [address] [place], [address] HEMOGLOBIN A1C Collected: 01/08/2018 Status: F Source: YOLANDA 5:06 AM [facility] REPOSITORY Order Comment: SPECIMEN OBTAINED FROM LINE DRAW TYPE CODE TESTS RESULT OUT OF RANGE REFERENCE UNITS LAB L501.9985 4.2-6.3 % Normal HGB A1C 4.8 Performed By: #### L501.9985 #### [facility] [address] [place], [address] BEDSIDE GLUCOSE Collected: 01/07/2018 Status: F Source: YOLANDA 9:10 PM [facility] REPOSITORY TYPE CODE TESTS RESULT OUT OF REFERENCE UNITS RANGE LAB L501.080 70-110 mg/dL High BEDSIDE GLU 166 Result Comment: MANAGEMENT OF PATIENT CARE PER NURSING PROTOCOL Performed By: #### L501.080 #### [facility] [address] [place] [address] BEDSIDE GLUCOSE Collected: 01/07/2018 Status: F Source: YOLANDA 4:53 PM [facility] REPOSITORY TYPE CODE TESTS RESULT OUT OF RANGE REFERENCE UNITS LAB L501.080 70-110 mg/dL Normal BEDSIDE GLU 105 Result Comment: MANAGEMENT OF PATIENT CARE PER NURSING PROTOCOL Performed By: #### L501.080 #### [facility] [address] [place], [place] [address] URINALYSIS, COMPLETE Collected: 01/07/2018 Status: F Source: YOLANDA 3:10 PM [facility] REPOSITORY Order Comment: How was Urine Obtained? CATHETER SPECIMEN TYPE CODE TESTS RESULT OUT OF RANGE REFERENCE UNITS LAB L400.3000 Yellow COLOR Normal Yellow LAB L400.3050 Clear Normal CLARITY Sl. Cloudy LAB L400.3200 Normal mg/dl Normal GLUCOSE, UR Normal LAB L400.3300 Negative mg/dL Normal BILIRUBIN URINE Negative LAB L400.3400 Negative mg/dl Normal KETONE UR Negative LAB L400.3465 1.002-1.030 Normal SP.GR. DIPSTX 1.010 LAB L400.3550 5.0 - 8.0 pH UR Normal 7.0 LAB L400.3600 Negative mg/dl PROT Normal DIPSTX Negative LAB L400.3700 Normal mg/dl Normal UROBILI Normal LAB L400.3750 Negative Normal NITRITE UR Negative LAB L400.3780 Negative /ul Normal OCCULT BLOOD-UR Negative LAB L400.3800 Negative /ul High LEUK 25 ESTERASE LAB L400.4050 0-5 /hpf WBC Normal 0-5 SEEN LAB L400.4100 0-5 /hpf 0 Normal RBC-UA SEEN LAB L400.4150 5-10 /hpf SQUAM Normal EPI 0-5 SEEN LAB L400.4300 None Seen /hpf 1+ Normal BACTERIA LAB L400.4350 <or=2+ /hpf 0 Normal MUCUS, URINE SEEN LAB L400.5200 None Seen /hpf Normal YEAST-URINE RARE Performed By: #### L400.0001, L506.0500 #### [facility] [address] [place], [place], [address] Observed: 01/07/2018 Status: F Source: YOLANDA CULTURE, URINE 3:10 PM [facility] REPOSITORY Urine Culture ORGANISM 1: Mixed Gram Positive Organisms [facility] Count >100,000 MIX CULTURE Mixed contaminants. Submit a new specimen if indicated. Performed By: #### M100.0650 #### [facility] [address] [place], [place], [address] PROGRESS Observed: 01/07/2018 Status: COMPLETED Source: [place] 12:06 PM [facility] REPOSITORY HNO ID: [id number] Author: Joan Cortez Service: (none) Author Type: Medical Health Researcher Type: Progress Notes Filed: 01/07/2018 12:11 PM Note Text: Spoke with Joaquín [facility]. Wound looks much better, it 's smaller. Dr Tran is coming to TCU to evaluate the wound. Still on IV antibiotics and using the wound vac. Discharge date is 01-09-18. I will follow on Friday. Joan Cortez MA BEDSIDE GLUCOSE Collected: 01/07/2018 Status: F Source: YOLANDA 11:18 AM [facility] REPOSITORY TYPE CODE TESTS RESULT OUT OF REFERENCE UNITS RANGE LAB L501.080 70-110 mg/dL High BEDSIDE GLU 168 Result Comment: MANAGEMENT OF PATIENT CARE PER NURSING PROTOCOL Performed By: #### L501.080 #### [facility] [address] [place] [address] BEDSIDE GLUCOSE Collected: 01/07/2018 Status: F Source: YOLANDA 6:43 AM [facility] REPOSITORY TYPE CODE TESTS RESULT OUT OF REFERENCE UNITS RANGE LAB L501.080 70-110 mg/dL High BEDSIDE GLU 115 Result Comment: MANAGEMENT OF PATIENT CARE PER NURSING PROTOCOL Performed By: #### L501.080 #### [facility] [address] [place] [address] BEDSIDE GLUCOSE Collected: 01/06/2018 Status: F Source: YOLANDA 9:23 PM [facility] REPOSITORY TYPE CODE TESTS RESULT OUT OF REFERENCE UNITS RANGE LAB L501.080 70-110 mg/dL High BEDSIDE GLU 143 Result Comment: MANAGEMENT OF PATIENT CARE PER NURSING PROTOCOL Performed By: #### L501.080 #### [facility] [address] [place] [address] BEDSIDE GLUCOSE Collected: 01/06/2018 Status: F Source: YOLANDA 4:55 PM [facility] REPOSITORY TYPE CODE TESTS RESULT OUT OF REFERENCE UNITS RANGE LAB L501.080 70-110 mg/dL High BEDSIDE GLU 195 Result Comment: MANAGEMENT OF PATIENT CARE PER NURSING PROTOCOL Performed By: #### L501.080 #### [facility] [address] [place] [address] BEDSIDE GLUCOSE Collected: 01/06/2018 Status: F Source: YOLANDA 11:18 AM [facility] REPOSITORY TYPE CODE TESTS RESULT OUT OF REFERENCE UNITS RANGE LAB L501.080 70-110 mg/dL High BEDSIDE GLU 170 Result Comment: MANAGEMENT OF PATIENT CARE PER NURSING PROTOCOL Performed By: #### L501.080 #### [facility] [address] [place] [address] BEDSIDE GLUCOSE Collected: 01/06/2018 Status: F Source: YOLANDA 6:38 AM [facility] REPOSITORY TYPE CODE TESTS RESULT OUT OF REFERENCE UNITS RANGE LAB L501.080 70-110 mg/dL High BEDSIDE GLU 115 Result Comment: MANAGEMENT OF PATIENT CARE PER NURSING PROTOCOL Performed By: #### L501.080 #### [facility] [address] [place] [address] BEDSIDE GLUCOSE Collected: 01/05/2018 Status: F Source: YOLANDA 9:00 PM [facility] REPOSITORY TYPE CODE TESTS RESULT OUT OF REFERENCE UNITS RANGE LAB L501.080 70-110 mg/dL High BEDSIDE GLU 143 Result Comment: Dr Orders Followed MANAGEMENT OF PATIENT CARE PER NURSING PROTOCOL Performed By: #### L501.080 #### [facility] [address] [place] [address] BEDSIDE GLUCOSE Collected: 01/05/2018 Status: F Source: YOL[place]DA 5:01 PM [facility] REPOSITORY TYPE CODE TESTS RESULT OUT OF REFERENCE UNITS RANGE LAB L501.080 70-110 mg/dL High BEDSIDE GLU 130 Result Comment: Dr Orders Followed MANAGEMENT OF PATIENT CARE PER NURSING PROTOCOL Performed By: #### L501.080 #### [facility] [address] [place] [address] BEDSIDE GLUCOSE Collected: 01/05/2018 Status: F Source: YOLANDA 11:26 AM [facility] REPOSITORY TYPE CODE TESTS RESULT OUT OF REFERENCE UNITS RANGE LAB L501.080 70-110 mg/dL High BEDSIDE GLU 160 Result Comment: MANAGEMENT OF PATIENT CARE PER NURSING PROTOCOL Performed By: #### L501.080 #### Yolanda [facility] [address] [place], [place] [id number] BEDSIDE GLUCOSE Collected: 01/05/2018 Status: F Source: YOLANDA 6:38 AM [facility] REPOSITORY TYPE CODE TESTS RESULT OUT OF REFERENCE UNITS RANGE LAB L501.080 70-110 mg/dL High BEDSIDE GLU 112 Result Comment: MANAGEMENT OF PATIENT CARE PER NURSING PROTOCOL Performed By: #### L501.080 #### [facility] [address] [place], [place] [address] CBC W/DIFF, AUTOMATED Collected: 01/05/2018 Status: F Source: YOLANDA 5:02 AM [facility] REPOSITORY Order Comment: SPECIMEN OBTAINED FROM LINE DRAW TYPE CODE TESTS RESULT OUT OF RANGE REFERENCE UNITS LAB L100.1000 4.4-11.0 K/mm3 Normal WBC 6.6 LAB L100.1200 4.2-5.4 M/mm3 Low RBC 2.87 LAB L100.1300 12.0-15.0 g/dl Low HGB 8.4 LAB L100.1400 37-47 % Low HCT 27.2 LAB L100.1500 81-99 fL Normal MCV 94.8 LAB L100.1600 27.0-32.0 pg Normal MCH 29.3 LAB L100.1700 32-36 g/gl Low MCHC 30.9 LAB L100.1810 11.6-14.6 % High RDW CV 16.6 LAB L100.1820 35.1-43.9 fl High RDW SD 54.1 LAB L100.1900 150-450 K/mm3 Normal PLT 163 LAB L100.2000 6.2-12.0 fl Normal MPV 8.7 LAB L100.2100 47-70 % Normal NEUT% 66.0 LAB L100.2200 19-41 % Low LY% 17.4 LAB L100.2300 0-10 % Normal MONO% 7.6 LAB L100.2400 0-5 % High EO% 7.6 LAB L100.2500 0-1 % Normal BASO% 0.5 LAB L100.2550 0.0-0.9 % Normal IM GRAN % 0.900 Result Comment: IG% - Immature Granulocytes (promyelocytes, myelocytes and metamyelocytes) > 1% indicates that a LEFT SHIFT is Present. LAB L100.2620 2.0-7.7 X10 3/uL Normal Absolute Neut 4.4 LAB L100.2720 0.83-4.51 X10 3/ul Normal Absolute Lymph 1.15 Performed By: #### L100.0100 #### [facility] [address] [place], [address] BEDSIDE GLUCOSE Collected: 01/04/2018 Status: F Source: YOLANDA 8:57 PM [facility] REPOSITORY TYPE CODE TESTS RESULT OUT OF REFERENCE UNITS RANGE LAB L501.080 70-110 mg/dL High BEDSIDE GLU 137 Result Comment: Dr Orders Followed MANAGEMENT OF PATIENT CARE PER NURSING PROTOCOL Performed By: #### L501.080 #### [facility] [address] [place] [address] BEDSIDE GLUCOSE Collected: 01/04/2018 Status: F Source: YOLANDA 5:03 PM [facility] REPOSITORY TYPE CODE TESTS RESULT OUT OF REFERENCE UNITS RANGE LAB L501.080 70-110 mg/dL High BEDSIDE GLU 138 Result Comment: Dr Orders Followed MANAGEMENT OF PATIENT CARE PER NURSING PROTOCOL Performed By: #### L501.080 #### [facility] [address] [place] [address] BEDSIDE GLUCOSE Collected: 01/04/2018 Status: F Source: YOL[place]DA 11:38 AM [facility] REPOSITORY TYPE CODE TESTS RESULT OUT OF REFERENCE UNITS RANGE LAB L501.080 70-110 mg/dL High BEDSIDE GLU 128 Result Comment: MANAGEMENT OF PATIENT CARE PER NURSING PROTOCOL Performed By: #### L501.080 #### [facility] [address] [place] [address] BEDSIDE GLUCOSE Collected: 01/04/2018 Status: F Source: YOLANDA 6:38 AM [facility] REPOSITORY TYPE CODE TESTS RESULT OUT OF REFERENCE UNITS RANGE LAB L501.080 70-110 mg/dL High BEDSIDE GLU 124 Result Comment: Dr Orders Followed MANAGEMENT OF PATIENT CARE PER NURSING PROTOCOL Performed By: #### L501.080 #### [facility] [address] [place] [address] BEDSIDE GLUCOSE Collected: 01/03/2018 Status: F Source: YOLANDA 9:06 PM [facility] REPOSITORY TYPE CODE TESTS RESULT OUT OF REFERENCE UNITS RANGE LAB L501.080 70-110 mg/dL High BEDSIDE GLU 130 Result Comment: Dr Orders Followed MANAGEMENT OF PATIENT CARE PER NURSING PROTOCOL Performed By: #### L501.080 #### [facility] [address] [place] [address] BEDSIDE GLUCOSE Collected: 01/03/2018 Status: F Source: YOLANDA 5:00 PM [facility] REPOSITORY TYPE CODE TESTS RESULT OUT OF REFERENCE UNITS RANGE LAB L501.080 70-110 mg/dL High BEDSIDE GLU 126 Result Comment: Dr Orders Followed MANAGEMENT OF PATIENT CARE PER NURSING PROTOCOL Performed By: #### L501.080 #### [facility] [address] [place] [address] BEDSIDE GLUCOSE Collected: 01/03/2018 Status: F Source: YOLANDA 11:29 AM [facility] REPOSITORY TYPE CODE TESTS RESULT OUT OF REFERENCE UNITS RANGE LAB L501.080 70-110 mg/dL High BEDSIDE GLU 137 Result Comment: MANAGEMENT OF PATIENT CARE PER NURSING PROTOCOL Performed By: #### L501.080 #### [facility] [address] [place] [address] BEDSIDE GLUCOSE Collected: 01/03/2018 Status: F Source: YOLANDA 6:47 AM [facility] REPOSITORY TYPE CODE TESTS RESULT OUT OF RANGE REFERENCE UNITS LAB L501.080 70-110 mg/dL Normal BEDSIDE GLU 106 Result Comment: Dr Orders Followed MANAGEMENT OF PATIENT CARE PER NURSING PROTOCOL Performed By: #### L501.080 #### [facility] [address] [place] [address] BEDSIDE GLUCOSE Collected: 01/02/2018 Status: F Source: YOLANDA 8:49 PM [facility] REPOSITORY TYPE CODE TESTS RESULT OUT OF REFERENCE UNITS RANGE LAB L501.080 70-110 mg/dL High BEDSIDE GLU 149 Result Comment: MANAGEMENT OF PATIENT CARE PER NURSING PROTOCOL Performed By: #### L501.080 #### [facility] [address] [place] [address] BEDSIDE GLUCOSE Collected: 01/02/2018 Status: F Source: OYLANDA 4:58 PM [facility] REPOSITORY TYPE CODE TESTS RESULT OUT OF REFERENCE UNITS RANGE LAB L501.080 70-110 mg/dL High BEDSIDE GLU 156 Result Comment: MANAGEMENT OF PATIENT CARE PER NURSING PROTOCOL Performed By: #### L501.080 #### [facility] [address] [place] [address] BEDSIDE GLUCOSE Collected: 01/02/2018 Status: F Source: YOLANDA 11:33 AM [facility] REPOSITORY TYPE CODE TESTS RESULT OUT OF REFERENCE UNITS RANGE LAB L501.080 70-110 mg/dL High BEDSIDE GLU 173 Result Comment: MANAGEMENT OF PATIENT CARE PER NURSING PROTOCOL Performed By: #### L501.080 #### [facility] [address] [place] [address] BEDSIDE GLUCOSE Collected: 01/02/2018 Status: F Source: YOLANDA 6:16 AM [facility] REPOSITORY TYPE CODE TESTS RESULT OUT OF REFERENCE UNITS RANGE LAB L501.080 70-110 mg/dL High BEDSIDE GLU 127 Result Comment: Dr Orders Followed MANAGEMENT OF PATIENT CARE PER NURSING PROTOCOL Performed By: #### L501.080 #### [facility] [address] [place] [address] BASIC METABOLIC Collected: 01/02/2018 Status: F Source: YOLANDA PROFILE (BMP) 6:00 AM [facility] REPOSITORY Order Comment: SPECIMEN OBTAINED FROM LINE DRAW TYPE CODE TESTS RESULT OUT OF RANGE REFERENCE UNITS LAB L501.0100 74-106 mg/dL High GLU 126 Result Comment: Fasting Glucose result greater than or equal to 126 mg/dL suggests DIABETES MELLITUS per A.D.A. criteria. Please note revised GLUCOSE reference range effective 2017. LAB L501.1000 7-18 mg/dL High BUN 40 LAB L501.1100 0.55-1.02 mg/dL Normal CREAT,SERUM 0.83 Result Comment: The validity of the calculated GFR AND GFRAA in patients over 70 years has not been determined. Clinical correlation is essential. LAB L501.1110 >60 mL/min Normal EST GFR 77 Result Comment: Non- GFR Calc LAB L501.1115 >60 mL/min Normal EST GFR - AA 93 Result Comment: GFR Calc LAB L501.1255 ml/min Normal Estimated CRCL 56.95 LAB L501.1300 10-20 RATIO High BUN/CRE 48.2 LAB L501.2200 8.5-10 mg/dL Low .1 CA 8.4 LAB L501.5300 136-14 mmol/L High 5 NA 146 LAB L501.5600 3.5-5. mmol/L Normal 1 K 4.0 LAB L501.5900 98-107 mmol/L High CL 110 LAB L501.6100 21.0-3 mmol/L Normal 2.0 CO2 30.0 LAB L501.6200 5-15 Normal GAP 6 Performed By: #### L500.2500 #### [facility] [address] [place], [address] CBC W/DIFF, AUTOMATED Collected: 01/02/2018 Status: F Source: CELINA 6:00 AM [facility] REPOSITORY Order Comment: SPECIMEN OBTAINED FROM LINE DRAW TYPE CODE TESTS RESULT OUT OF RANGE REFERENCE UNITS LAB L100.1000 4.4-11.0 K/mm3 Normal WBC 5.8 LAB L100.1200 4.2-5.4 M/mm3 Low RBC 2.92 LAB L100.1300 12.0-15.0 g/dl Low HGB 8.2 LAB L100.1400 37-47 % Low HCT 27.3 LAB L100.1500 81-99 fL Normal MCV 93.5 LAB L100.1600 27.0-32.0 pg Normal MCH 28.1 LAB L100.1700 32-36 g/gl Low MCHC 30.0 LAB L100.1810 11.6-14.6 % High RDW CV 16.8 LAB L100.1820 35.1-43.9 fl High RDW SD 56.6 LAB L100.1900 150-450 K/mm3 Normal PLT 163 LAB L100.2000 6.2-12.0 fl Normal MPV 8.8 LAB L100.2100 47-70 % Normal NEUT% 66.3 LAB L100.2200 19-41 % Normal LY% 19.2 LAB L100.2300 0-10 % Normal MONO% 6.7 LAB L100.2400 0-5 % High EO% 7.3 LAB L100.2500 0-1 % Normal BASO% 0.2 LAB L100.2550 0.0-0.9 % Normal IM GRAN % 0.300 Result Comment: IG% - Immature Granulocytes (promyelocytes, myelocytes and metamyelocytes) > 1% indicates that a LEFT SHIFT is Present. LAB L100.2620 2.0-7.7 X10 3/uL Normal Absolute Neut 3.8 LAB L100.2720 0.83-4.51 X10 3/ul Normal Absolute Lymph 1.11 Performed By: #### L100.0100 #### [facility] [address] [facility] [facility] [address] BEDSIDE GLUCOSE Collected: 01/01/2018 Status: F Source: CELINA 8:44 PM [facility] REPOSITORY TYPE CODE TESTS RESULT OUT OF REFERENCE UNITS RANGE LAB L501.080 70-110 mg/dL High BEDSIDE GLU 138 Result Comment: MANAGEMENT OF PATIENT CARE PER NURSING PROTOCOL Performed By: #### L501.080 #### [facility] [address] [facility]. [place], [place] [address] BEDSIDE GLUCOSE Collected: 01/01/2018 Status: F Source: CELINA 5:08 PM [facility] REPOSITORY TYPE CODE TESTS RESULT OUT OF REFERENCE UNITS RANGE LAB L501.080 70-110 mg/dL High BEDSIDE GLU 139 Result Comment: MANAGEMENT OF PATIENT CARE PER NURSING PROTOCOL Performed By: #### L501.080 #### [facility] [address] [facility]. [place], [place] [id number] BEDSIDE GLUCOSE Collected: 01/01/2018 Status: F Source: YOLANDA 10:55 AM [facility] REPOSITORY TYPE CODE TESTS RESULT OUT OF REFERENCE UNITS RANGE LAB L501.080 70-110 mg/dL High BEDSIDE GLU 175 Result Comment: MANAGEMENT OF PATIENT CARE PER NURSING PROTOCOL Performed By: #### L501.080 #### [facility] [address] [place] [address] BEDSIDE GLUCOSE Collected: 01/01/2018 Status: F Source: YOLANDA 6:50 AM [facility] REPOSITORY TYPE CODE TESTS RESULT OUT OF RANGE REFERENCE UNITS LAB L501.080 70-110 mg/dL Normal BEDSIDE GLU 105 Result Comment: MANAGEMENT OF PATIENT CARE PER NURSING PROTOCOL Performed By: #### L501.080 #### [facility] [address] [place] [address] BEDSIDE GLUCOSE Collected: 12/31/2017 Status: F Source: YOLANDA 8:47 PM [facility] REPOSITORY TYPE CODE TESTS RESULT OUT OF REFERENCE UNITS RANGE LAB L501.080 70-110 mg/dL High BEDSIDE GLU 153 Result Comment: MANAGEMENT OF PATIENT CARE PER NURSING PROTOCOL Performed By: #### L501.080 #### [facility] [address] [place] [address] BEDSIDE GLUCOSE Collected: 12/31/2017 Status: F Source: YOLANDA 4:52 PM [facility] REPOSITORY TYPE CODE TESTS RESULT OUT OF REFERENCE UNITS RANGE LAB L501.080 70-110 mg/dL High BEDSIDE GLU 161 Result Comment: MANAGEMENT OF PATIENT CARE PER NURSING PROTOCOL Performed By: #### L501.080 #### [facility] [address] [place] [address] BEDSIDE GLUCOSE Collected: 12/31/2017 Status: F Source: YOLANDA 11:25 AM [facility] REPOSITORY TYPE CODE TESTS RESULT OUT OF REFERENCE UNITS RANGE LAB L501.080 70-110 mg/dL High BEDSIDE GLU 140 Result Comment: MANAGEMENT OF PATIENT CARE PER NURSING PROTOCOL Performed By: #### L501.080 #### [facility] [address] [place] [address] PROGRESS Observed: 12/31/2017 Status: COMPLETED Source: [place] 9:33 AM [facility] REPOSITORY HNO ID: [id number] Author: Joan Cortez Service: (none) Author Type: Medical Health Researcher Type: Progress Notes Filed: 12/31/2017 9:42 AM Note Text: Spoke with Ayaka from [facility], [facility], regarding Emilee Bassett. Patient is doing well. She is on IV antibiotics and using a wound vac on the left medial thigh. They found some bed bugs on the patienct. The wound vac on the infected area when the bugs were found. The next follow up call is scheduled for January 07. Joan Cortez MA BEDSIDE GLUCOSE Collected: 12/31/2017 Status: F Source: [place]EL[place] 6:47 AM [facility] REPOSITORY TYPE CODE TESTS RESULT OUT OF RANGE REFERENCE UNITS LAB L501.080 70-110 mg/dL Normal BEDSIDE GLU 98 Result Comment: MANAGEMENT OF PATIENT CARE PER NURSING PROTOCOL Performed By: #### L501.080 #### [facility] [address] [place] [address] BEDSIDE GLUCOSE Collected: 12/30/2017 Status: F Source: [place]EL[place] 9:46 PM [facility] REPOSITORY TYPE CODE TESTS RESULT OUT OF REFERENCE UNITS RANGE LAB L501.080 70-110 mg/dL High BEDSIDE GLU 151 Result Comment: MANAGEMENT OF PATIENT CARE PER NURSING PROTOCOL Performed By: #### L501.080 #### [facility] [address] [place] [address] BEDSIDE GLUCOSE Collected: 12/30/2017 Status: F Source: [place] 4:51 PM [facility] REPOSITORY TYPE CODE TESTS RESULT OUT OF REFERENCE UNITS RANGE LAB L501.080 70-110 mg/dL High BEDSIDE GLU 120 Result Comment: MANAGEMENT OF PATIENT CARE PER NURSING PROTOCOL Performed By: #### L501.080 #### [facility] [address] [place] [address] BEDSIDE GLUCOSE Collected: 12/30/2017 Status: F Source: [place] 11:19 AM [facility] REPOSITORY TYPE CODE TESTS RESULT OUT OF REFERENCE UNITS RANGE LAB L501.080 70-110 mg/dL High BEDSIDE GLU 138 Result Comment: MANAGEMENT OF PATIENT CARE PER NURSING PROTOCOL Performed By: #### L501.080 #### [facility] [address] [place] [address] BEDSIDE GLUCOSE Collected: 12/30/2017 Status: F Source: YOL[place]DA 7:08 AM [facility] REPOSITORY TYPE CODE TESTS RESULT OUT OF REFERENCE UNITS RANGE LAB L501.080 70-110 mg/dL High BEDSIDE GLU 112 Result Comment: MANAGEMENT OF PATIENT CARE PER NURSING PROTOCOL Performed By: #### L501.080 #### [facility] [address] [place] [address] BEDSIDE GLUCOSE Collected: 12/29/2017 Status: F Source: [place] 9:00 PM [facility] REPOSITORY TYPE CODE TESTS RESULT OUT OF REFERENCE UNITS RANGE LAB L501.080 70-110 mg/dL High BEDSIDE GLU 133 Result Comment: MANAGEMENT OF PATIENT CARE PER NURSING PROTOCOL Performed By: #### L501.080 #### [facility] [address] [place] [address] BEDSIDE GLUCOSE Collected: 12/29/2017 Status: F Source: YOL[place] 4:50 PM [facility] REPOSITORY TYPE CODE TESTS RESULT OUT OF REFERENCE UNITS RANGE LAB L501.080 70-110 mg/dL High BEDSIDE GLU 139 Result Comment: MANAGEMENT OF PATIENT CARE PER NURSING PROTOCOL Performed By: #### L501.080 #### [facility] [address] [place] [address] BEDSIDE GLUCOSE Collected: 12/29/2017 Status: F Source: YOL[place]DA 11:14 AM [facility] REPOSITORY TYPE CODE TESTS RESULT OUT OF REFERENCE UNITS [facility] LAB L501.080 70-110 mg/dL High BEDSIDE GLU 182 Result Comment: MANAGEMENT OF PATIENT CARE PER NURSING PROTOCOL Performed By: #### L501.080 #### [facility] [address] [place] [address] BEDSIDE GLUCOSE Collected: 12/29/2017 Status: F Source: [place] 6:40 AM [facility] REPOSITORY TYPE CODE TESTS RESULT OUT OF REFERENCE UNITS RANGE LAB L501.080 70-110 mg/dL High BEDSIDE GLU 115 Result Comment: MANAGEMENT OF PATIENT CARE PER NURSING PROTOCOL Performed By: #### L501.080 #### [facility] Point [facility] [address] [place] [address] BEDSIDE GLUCOSE Collected: 12/28/2017 Status: F Source: [place] 9:24 PM [facility] REPOSITORY TYPE CODE TESTS RESULT OUT OF REFERENCE UNITS RANGE LAB L501.080 70-110 mg/dL High BEDSIDE GLU 130 Result Comment: MANAGEMENT OF PATIENT CARE PER NURSING PROTOCOL Performed By: #### L501.080 #### [facility] [address] [place] [address] BEDSIDE GLUCOSE Collected: 12/28/2017 Status: F Source: [place] 4:52 PM [facility] REPOSITORY TYPE CODE TESTS RESULT OUT OF REFERENCE UNITS RANGE LAB L501.080 70-110 mg/dL High BEDSIDE GLU 139 Result Comment: MANAGEMENT OF PATIENT CARE PER NURSING PROTOCOL Performed By: #### L501.080 #### [facility] [address] [place] [address] BEDSIDE GLUCOSE Collected: 12/28/2017 Status: F Source: [place] 11:20 AM [facility] REPOSITORY TYPE CODE TESTS RESULT OUT OF REFERENCE UNITS RANGE LAB L501.080 70-110 mg/dL High BEDSIDE GLU 127 Result Comment: MANAGEMENT OF PATIENT CARE PER NURSING PROTOCOL Performed By: #### L501.080 #### [facility] [address] [place] [address] BEDSIDE GLUCOSE Collected: 12/28/2017 Status: F Source: [place] 6:50 AM [facility] REPOSITORY TYPE CODE TESTS RESULT OUT OF REFERENCE UNITS RANGE LAB L501.080 70-110 mg/dL High BEDSIDE GLU 116 Result Comment: MANAGEMENT OF PATIENT CARE PER NURSING PROTOCOL Performed By: #### L501.080 #### [facility] [address] [place] [address] BEDSIDE GLUCOSE Collected: 12/27/2017 Status: F Source: [place] 9:58 PM [facility] REPOSITORY TYPE CODE TESTS RESULT OUT OF REFERENCE UNITS RANGE LAB L501.080 70-110 mg/dL High BEDSIDE GLU 128 Result Comment: MANAGEMENT OF PATIENT CARE PER NURSING PROTOCOL Performed By: #### L501.080 #### [facility] [address] [place] [address] BEDSIDE GLUCOSE Collected: 12/27/2017 Status: F Source: [place] 5:04 PM [facility] REPOSITORY TYPE CODE TESTS RESULT OUT OF REFERENCE UNITS RANGE LAB L501.080 70-110 mg/dL High BEDSIDE GLU 146 Result Comment: MANAGEMENT OF PATIENT CARE PER NURSING PROTOCOL Performed By: #### L501.080 #### [facility] [address] [place], [place] [address] BEDSIDE GLUCOSE Collected: 12/27/2017 Status: F Source: [place] 11:17 AM [facility] REPOSITORY TYPE CODE TESTS RESULT OUT OF REFERENCE UNITS RANGE LAB L501.080 70-110 mg/dL High BEDSIDE GLU 152 Result Comment: MANAGEMENT OF PATIENT CARE PER NURSING PROTOCOL Performed By: #### L501.080 #### [facility] [address] [place], [place] [address] BEDSIDE GLUCOSE Collected: 12/27/2017 Status: F Source: [place] 7:02 AM [facility] REPOSITORY TYPE CODE TESTS RESULT OUT OF REFERENCE UNITS RANGE LAB L501.080 70-110 mg/dL High BEDSIDE GLU 111 Result Comment: MANAGEMENT OF PATIENT CARE PER NURSING PROTOCOL Performed By: #### L501.080 #### [facility] [address] [place] [address] BEDSIDE GLUCOSE Collected: 12/26/2017 Status: F Source: [place] 9:28 PM [facility] REPOSITORY TYPE CODE TESTS RESULT OUT OF REFERENCE UNITS RANGE LAB L501.080 70-110 mg/dL High BEDSIDE GLU 167 Result Comment: MANAGEMENT OF PATIENT CARE PER NURSING PROTOCOL Performed By: #### L501.080 #### [facility] [address] [place] [address] BEDSIDE GLUCOSE Collected: 12/26/2017 Status: F Source: [place] 4:51 PM [facility] REPOSITORY TYPE CODE TESTS RESULT OUT OF REFERENCE UNITS RANGE LAB L501.080 70-110 mg/dL High BEDSIDE GLU 144 Result Comment: MANAGEMENT OF PATIENT CARE PER NURSING PROTOCOL Performed By: #### L501.080 #### [facility] [address] [place] [address] BEDSIDE GLUCOSE Collected: 12/26/2017 Status: F Source: [place] 11:05 AM [facility] REPOSITORY TYPE CODE TESTS RESULT OUT OF REFERENCE UNITS RANGE LAB L501.080 70-110 mg/dL High BEDSIDE GLU 130 Result Comment: MANAGEMENT OF PATIENT CARE PER NURSING PROTOCOL Performed By: #### L501.080 #### [facility] [address] [place] [address] BEDSIDE GLUCOSE Collected: 12/26/2017 Status: F Source: [place] 6:36 AM [facility] REPOSITORY TYPE CODE TESTS RESULT OUT OF RANGE REFERENCE UNITS LAB L501.080 70-110 mg/dL Normal BEDSIDE GLU 104 Result Comment: MANAGEMENT OF PATIENT CARE PER NURSING PROTOCOL Performed By: #### L501.080 #### [facility] [address] [place] [address] CBC W/DIFF, AUTOMATED Collected: 12/26/2017 Status: F Source: [place] 5:10 AM [facility] REPOSITORY TYPE CODE TESTS RESULT OUT OF RANGE REFERENCE UNITS LAB L100.1000 4.4-11.0 K/mm3 Normal WBC 7.1 LAB L100.1200 4.2-5.4 M/mm3 Low RBC 3.23 LAB L100.1300 12.0-15.0 g/dl Low HGB 9.0 LAB L100.1400 37-47 % Low HCT 29.6 LAB L100.1500 81-99 fL Normal MCV 91.6 LAB L100.1600 27.0-32.0 pg Normal MCH 27.9 LAB L100.1700 32-36 g/gl Low MCHC 30.4 LAB L100.1810 11.6-14.6 % High RDW CV 16.9 LAB L100.1820 35.1-43.9 fl High RDW SD 55.7 LAB L100.1900 150-450 K/mm3 Normal PLT 184 LAB L100.2000 6.2-12.0 fl Normal MPV 9.2 LAB L100.2100 47-70 % Normal NEUT% 62.7 LAB L100.2200 19-41 % Low LY% 18.6 LAB L100.2300 0-10 % Normal MONO% 6.5 LAB L100.2400 0-5 % High EO% 11.5 LAB L100.2500 0-1 % Normal BASO% 0.3 LAB L100.2550 0.0-0.9 % Normal IM GRAN % 0.400 Result Comment: IG% - Immature Granulocytes (promyelocytes, myelocytes and metamyelocytes) > 1% indicates that a LEFT SHIFT is Present. LAB L100.2620 2.0-7.7 X10 3/uL Normal Absolute Neut 4.4 LAB L100.2720 0.83-4.51 X10 3/ul Normal Absolute Lymph 1.31 Performed By: #### L100.0100 #### [facility] [address] [place], [place], [address] BASIC METABOLIC Collected: 12/26/2017 Status: F Source: [place] PROFILE (BMP) 5:10 AM [facility] REPOSITORY TYPE CODE TESTS RESULT OUT OF RANGE REFERENCE UNITS LAB L501.0100 74-106 mg/dL Normal GLU 99 Result Comment: Please note revised GLUCOSE reference range effective 2017. LAB L501.1000 7-18 mg/dL High BUN 51 LAB L501.1100 0.55-1.02 mg/dL Normal CREAT,SERUM 0.92 Result Comment: The validity of the calculated GFR AND GFRAA in patients over 70 years has not been determined. Clinical correlation is essential. LAB L501.1110 >60 mL/min Normal EST GFR 68 Result Comment: Non- GFR Calc LAB L501.1115 >60 mL/min Normal EST GFR - AA 83 Result Comment: GFR Calc LAB L501.1255 ml/min Normal Estimated CRCL 51.38 LAB L501.1300 10-20 RATIO High BUN/CRE 55.6 LAB L501.2200 8.5-10 mg/dL Normal .1 CA 8.7 LAB L501.5300 136-14 mmol/L Normal 5 NA 144 LAB L501.5600 3.5-5. mmol/L Normal 1 K 4.1 LAB L501.5900 98-107 mmol/L Normal CL 107 LAB L501.6100 21.0-3 mmol/L Normal 2.0 CO2 29.0 LAB L501.6200 5-15 Normal GAP 8 Performed By: #### L500.2500 #### [facility] [address] [place], [address] BEDSIDE GLUCOSE Collected: 12/25/2017 Status: F Source: [place] 8:51 PM [facility] REPOSITORY TYPE CODE TESTS RESULT OUT OF REFERENCE UNITS RANGE LAB L501.080 70-110 mg/dL High BEDSIDE GLU 116 Result Comment: Dr Ramos Followed MANAGEMENT OF PATIENT CARE PER NURSING PROTOCOL Performed By: #### L501.080 #### [facility] [address] [place] [address] BEDSIDE GLUCOSE Collected: 12/25/2017 Status: F Source: [place] 4:54 PM [facility] REPOSITORY TYPE CODE TESTS RESULT OUT OF REFERENCE UNITS RANGE LAB L501.080 70-110 mg/dL High BEDSIDE GLU 209 Result Comment: MANAGEMENT OF PATIENT CARE PER NURSING PROTOCOL Performed By: #### L501.080 #### [facility] [address] [place] [address] PROGRESS Observed: 12/25/2017 Status: COMPLETED Source: [place] 2:23 PM [facility] REPOSITORY HNO ID: [id number] Author: Joan Cortez Service: (none) Author Type: Medical Health Researcher Type: Progress Notes Filed: 12/25/2017 2:27 PM Note Text: Spoke to Kandi at [facility] regarding Emilee Bassett. She is doing well and still on IV antibiotics. Patient has a wound vac on her left medial thigh. No discharge date has be discussed. I will follow up on 12-31-17. Joan Cortez MA BEDSIDE GLUCOSE Collected: 12/25/2017 Status: F Source: [place] 11:20 AM [facility] REPOSITORY TYPE CODE TESTS RESULT OUT OF REFERENCE UNITS RANGE LAB L501.080 70-110 mg/dL High BEDSIDE GLU 167 Result Comment: MANAGEMENT OF PATIENT CARE PER NURSING PROTOCOL Performed By: #### L501.080 #### [facility] [address] [place] [address] BEDSIDE GLUCOSE Collected: 12/25/2017 Status: F Source: [place] 6:58 AM [facility] REPOSITORY TYPE CODE TESTS RESULT OUT OF RANGE REFERENCE UNITS LAB L501.080 70-110 mg/dL Normal BEDSIDE GLU 99 Result Comment: MANAGEMENT OF PATIENT CARE PER NURSING PROTOCOL Performed By: #### L501.080 #### [facility] [address] [place] [address] BEDSIDE GLUCOSE Collected: 12/24/2017 Status: F Source: [place] 9:05 PM [facility] REPOSITORY TYPE CODE TESTS RESULT OUT OF REFERENCE UNITS RANGE LAB L501.080 70-110 mg/dL High BEDSIDE GLU 173 Result Comment: MANAGEMENT OF PATIENT CARE PER NURSING PROTOCOL Performed By: #### L501.080 #### [facility] [address] [place] [address] BEDSIDE GLUCOSE Collected: 12/24/2017 Status: F Source: [place] 5:01 PM [facility] REPOSITORY TYPE CODE TESTS RESULT OUT OF REFERENCE UNITS RANGE LAB L501.080 70-110 mg/dL High BEDSIDE GLU 160 Result Comment: MANAGEMENT OF PATIENT CARE PER NURSING PROTOCOL Performed By: #### L501.080 #### [facility] [address] [place] [address] BEDSIDE GLUCOSE Collected: 12/24/2017 Status: F Source: [place] 11:45 AM [facility] REPOSITORY TYPE CODE TESTS RESULT OUT OF REFERENCE UNITS RANGE LAB L501.080 70-110 mg/dL High BEDSIDE GLU 166 Result Comment: Dr Ramos Followed MANAGEMENT OF PATIENT CARE PER NURSING PROTOCOL Performed By: #### L501.080 #### [facility] [address] [place] [address] BEDSIDE GLUCOSE Collected: 12/24/2017 Status: F Source: [place] 6:40 AM [facility] REPOSITORY TYPE CODE TESTS RESULT OUT OF RANGE REFERENCE UNITS LAB L501.080 70-110 mg/dL Normal BEDSIDE GLU 110 Result Comment: MANAGEMENT OF PATIENT CARE PER NURSING PROTOCOL Performed By: #### L501.080 #### [facility] [address] [place] [address] BEDSIDE GLUCOSE Collected: 12/23/2017 Status: F Source: [place] 8:53 PM [facility] REPOSITORY TYPE CODE TESTS RESULT OUT OF REFERENCE UNITS RANGE LAB L501.080 70-110 mg/dL High BEDSIDE GLU 144 Result Comment: MANAGEMENT OF PATIENT CARE PER NURSING PROTOCOL Performed By: #### L501.080 #### [facility] [address] [place] [address] BEDSIDE GLUCOSE Collected: 12/23/2017 Status: F Source: [place] 4:56 PM [facility] REPOSITORY TYPE CODE TESTS RESULT OUT OF REFERENCE UNITS RANGE LAB L501.080 70-110 mg/dL High BEDSIDE GLU 147 Result Comment: MANAGEMENT OF PATIENT CARE PER NURSING PROTOCOL Performed By: #### L501.080 #### [facility] [address] [place] [address] BEDSIDE GLUCOSE Collected: 12/23/2017 Status: F Source: [place] 11:21 AM [facility] REPOSITORY TYPE CODE TESTS RESULT OUT OF REFERENCE UNITS RANGE LAB L501.080 70-110 mg/dL High BEDSIDE GLU 160 Result Comment: MANAGEMENT OF PATIENT CARE PER NURSING PROTOCOL Performed By: #### L501.080 #### [facility] [address] [place] [address] BEDSIDE GLUCOSE Collected: 12/23/2017 Status: F Source: [place] 6:55 AM [facility] REPOSITORY TYPE CODE TESTS RESULT OUT OF REFERENCE UNITS RANGE LAB L501.080 70-110 mg/dL High BEDSIDE GLU 114 Result Comment: MANAGEMENT OF PATIENT CARE PER NURSING PROTOCOL Performed By: #### L501.080 #### [facility] [address] [place] [address] BEDSIDE GLUCOSE Collected: 12/22/2017 Status: F Source: [place] 9:03 PM [facility] REPOSITORY TYPE CODE TESTS RESULT OUT OF REFERENCE UNITS RANGE LAB L501.080 70-110 mg/dL High BEDSIDE GLU 151 Result Comment: Dr Orders Followed MANAGEMENT OF PATIENT CARE PER NURSING PROTOCOL Performed By: #### L501.080 #### [facility] [address] [place] [address] BEDSIDE GLUCOSE Collected: 12/22/2017 Status: F Source: [place] 4:57 PM [facility] REPOSITORY TYPE CODE TESTS RESULT OUT OF RANGE REFERENCE UNITS LAB L501.080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 NURSING PROTOCOL Performed By: #### L501.080 #### [facility] Point of Care [address] [place] [address] BEDSIDE GLUCOSE Collected: 12/12/2017 Status: F Source: [place] 6:31 AM [facility] REPOSITORY TYPE CODE TESTS RESULT OUT OF REFERENCE UNITS RANGE LAB L501.080 70-110 mg/dL High BEDSIDE GLU 116 Result Comment: MANAGEMENT OF PATIENT CARE PER NURSING PROTOCOL Performed By: #### L501.080 #### [facility] Point of Care [address] [place] [address] BASIC METABOLIC Collected: 12/12/2017 Status: F Source: [place] PROFILE (BMP) 5:00 AM [facility] REPOSITORY Order Comment: SPECIMEN OBTAINED FROM LINE DRAW TYPE CODE TESTS RESULT OUT OF RANGE REFERENCE UNITS LAB L501.0100 74-106 mg/dL High GLU 109 Result Comment: Fasting Glucose result from 100 to 125 mg/dL suggests IMPAIRED HOMEOSTASIS per A.D.A. criteria. Please note revised GLUCOSE reference range effective 2017. LAB L501.1000 7-18 mg/dL High BUN 62 LAB L501.1100 0.55-1.02 mg/dL High CREAT,SERUM 1.32 Result Comment: The validity of the calculated GFR AND GFRAA in patients over 70 years has not been determined. Clinical correlation is essential. LAB L501.1110 >60 mL/min Low EST GFR 45 Result Comment: Non- GFR Calc LAB L501.1115 >60 mL/min Low EST GFR - AA 54 Result Comment: GFR Calc LAB L501.1255 ml/min Normal Estimated CRCL 35.81 LAB L501.1300 10-20 RATIO High BUN/CRE 47.0 LAB L501.2200 8.5-10 mg/dL Low .1 CA 8.4 LAB L501.5300 136-14 mmol/L Normal 5 NA 144 LAB L501.5600 3.5-5. mmol/L Normal 1 K 4.0 LAB L501.5900 98-107 mmol/L Normal CL 106 LAB L501.6100 21.0-3 mmol/L Normal 2.0 CO2 31.0 LAB L501.6200 5-15 Normal GAP 7 Performed By: #### L100.0100, L500.2500 #### [facility] [address] [place], [address] CBC W/DIFF, AUTOMATED Collected: 12/12/2017 Status: F Source: [place] 5:00 AM [facility] REPOSITORY Order Comment: SPECIMEN OBTAINED FROM LINE DRAW TYPE CODE TESTS RESULT OUT OF RANGE REFERENCE UNITS LAB L100.1000 4.4-11.0 K/mm3 Normal WBC 6.3 LAB L100.1200 4.2-5.4 M/mm3 Low RBC 3.19 LAB L100.1300 12.0-15.0 g/dl Low HGB 9.1 LAB L100.1400 37-47 % Low HCT 29.6 LAB L100.1500 81-99 fL Normal MCV 92.8 LAB L100.1600 27.0-32.0 pg Normal MCH 28.5 LAB L100.1700 32-36 g/gl Low MCHC 30.7 LAB L100.1810 11.6-14.6 % High RDW CV 16.5 LAB L100.1820 35.1-43.9 fl High RDW SD 54.1 LAB L100.1900 150-450 K/mm3 Normal PLT 152 LAB L100.2000 6.2-12.0 fl Normal MPV 9.9 LAB L100.2100 47-70 % Normal NEUT% 60.8 LAB L100.2200 19-41 % Normal LY% 23.6 LAB L100.2300 0-10 % Normal MONO% 6.5 LAB L100.2400 0-5 % High EO% 8.1 LAB L100.2500 0-1 % Normal BASO% 0.5 LAB L100.2550 0.0-0.9 % Normal IM GRAN % 0.500 Result Comment: IG% - Immature Granulocytes (promyelocytes, myelocytes and metamyelocytes) > 1% indicates that a LEFT SHIFT is Present. LAB L100.2620 2.0-7.7 X10 3/uL Normal Absolute Neut 3.8 LAB L100.2720 0.83-4.51 X10 3/ul Normal Absolute Lymph 1.48 Performed By: #### L100.0100 #### [facility] [address] [place] [address], [id number] BEDSIDE GLUCOSE Collected: 12/11/2017 Status: F Source: [place] 9:18 PM [facility] REPOSITORY TYPE CODE TESTS RESULT OUT OF REFERENCE UNITS RANGE LAB L501.080 70-110 mg/dL High BEDSIDE GLU 136 Result Comment: Dr Ramos Followed MANAGEMENT OF PATIENT CARE PER NURSING PROTOCOL Performed By: #### L501.080 #### [facility] Point of Care [address] [place], [place] [address] BEDSIDE GLUCOSE Collected: 12/11/2017 Status: F Source: [place] 4:48 PM [facility] REPOSITORY TYPE CODE TESTS RESULT OUT OF RANGE REFERENCE UNITS LAB L501.080 70-110 mg/dL Normal BEDSIDE GLU 106 Result Comment: MANAGEMENT OF PATIENT CARE PER NURSING PROTOCOL Performed By: #### L501.080 #### [facility] Point of Care [address] [place] [address] BEDSIDE GLUCOSE Collected: 12/11/2017 Status: F Source: [place] 11:11 AM [facility] REPOSITORY TYPE CODE TESTS RESULT OUT OF REFERENCE UNITS RANGE LAB L501.080 70-110 mg/dL High BEDSIDE GLU 175 Result Comment: MANAGEMENT OF PATIENT CARE PER NURSING PROTOCOL Performed By: #### L501.080 #### [facility] Point of Care [address] [place] [address] BEDSIDE GLUCOSE Collected: 12/11/2017 Status: F Source: [place] 6:31 AM [facility] REPOSITORY TYPE CODE TESTS RESULT OUT OF RANGE REFERENCE UNITS LAB L501.080 70-110 mg/dL Normal BEDSIDE GLU 105 Result Comment: MANAGEMENT OF PATIENT CARE PER NURSING PROTOCOL Performed By: #### L501.080 #### [facility] Point of Care [address] [place] [address] BEDSIDE GLUCOSE Collected: 12/10/2017 Status: F Source: [place] 9:13 PM [facility] REPOSITORY TYPE CODE TESTS RESULT OUT OF REFERENCE UNITS RANGE LAB L501.080 70-110 mg/dL High BEDSIDE GLU 169 Result Comment: MANAGEMENT OF PATIENT CARE PER NURSING PROTOCOL Performed By: #### L501.080 #### [facility] Point of Care [address] [place] [address] BEDSIDE GLUCOSE Collected: 12/10/2017 Status: F Source: [place] 4:57 PM [facility] REPOSITORY TYPE CODE TESTS RESULT OUT OF RANGE REFERENCE UNITS LAB L501.080 70-110 mg/dL Normal BEDSIDE GLU 101 Result Comment: MANAGEMENT OF PATIENT CARE PER NURSING PROTOCOL Performed By: #### L501.080 #### [facility] Point of Care [address] [place] [address] BEDSIDE GLUCOSE Collected: 12/10/2017 Status: F Source: [place] 11:33 AM [facility] REPOSITORY TYPE CODE TESTS RESULT OUT OF REFERENCE UNITS RANGE LAB L501.080 70-110 mg/dL High BEDSIDE GLU 174 Result Comment: MANAGEMENT OF PATIENT CARE PER NURSING PROTOCOL Performed By: #### L501.080 #### [facility] Point of Care [address] [place] [address] BEDSIDE GLUCOSE Collected: 12/10/2017 Status: F Source: [place] 6:50 AM [facility] REPOSITORY TYPE CODE TESTS RESULT OUT OF RANGE REFERENCE UNITS LAB L501.080 70-110 mg/dL Normal BEDSIDE GLU 106 Result Comment: MANAGEMENT OF PATIENT CARE PER NURSING PROTOCOL Performed By: #### L501.080 #### [facility] Point of Care [address] [place] [address] BEDSIDE GLUCOSE Collected: 12/09/2017 Status: F Source: [place] 9:19 PM [facility] REPOSITORY TYPE CODE TESTS RESULT OUT OF REFERENCE UNITS RANGE LAB L501.080 70-110 mg/dL High BEDSIDE GLU 153 Result Comment: MANAGEMENT OF PATIENT CARE PER NURSING PROTOCOL Performed By: #### L501.080 #### [facility] Point [facility] Care [address] [place] [address] BEDSIDE GLUCOSE Collected: 12/09/2017 Status: F Source: [place] 4:52 PM [facility] REPOSITORY TYPE CODE TESTS RESULT OUT OF REFERENCE UNITS RANGE LAB L501.080 70-110 mg/dL High BEDSIDE GLU 144 Result Comment: Dr Ramos Followed MANAGEMENT OF PATIENT CARE PER NURSING PROTOCOL Performed By: #### L501.080 #### [facility] Point [facility] [address] [place] [address] PROGRESS Observed: 12/09/2017 Status: COMPLETED Source: [place] 12:48 PM [facility] REPOSITORY O ID: [id number] Author: Cedrick Carballo (Rn) Service: (none) Author Type: Registered Nurse Type: Progress Notes Filed: 12/09/2017 12:49 PM Note Text: PRIMARY CARE COORDINATION QUICK NOTE Provider Action/FYI Noted Thank You Patient identified by name and date . Kait Philip RN December 09, 2017 12:48 PM BEDSIDE GLUCOSE Collected: 12/09/2017 Status: F Source: [place] 11:47 AM [facility] TYPE CODE TESTS RESULT OUT OF REFERENCE UNITS RANGE LAB L501.080 70-110 mg/dL High BEDSIDE GLU 177 Result Comment: MANAGEMENT OF PATIENT CARE PER NURSING PROTOCOL Performed By: #### L501.080 #### [facility] Point of Care [address] [place] [address] PROGRESS Observed: 12/09/2017 Status: COMPLETED Source: [place] 9:07 AM [facility] REPOSITORY HNO ID: [id number] Author: Joan Moreland) Andrew Service: (none) Author Type: Medical Health Researcher Type: Progress Notes Filed: 12/09/2017 9:24 AM Note Text: Spoke with Meera, at [facility],to get an update on Emilee Bassett condition. Patient is doing okay, wound is healing slowly. She a wound vac on left medial thigh. Culture of the wound showed Pseudomonas aerogenous. Patient was started on IV Meropenem for approximately 6 weeks for the infection No discharge date has been determined at this time. I will call for update on 12-17-17. Joan Cortez MA BEDSIDE GLUCOSE Collected: 12/09/2017 Status: F Source: [place] 6:15 AM [facility] TYPE CODE TESTS RESULT OUT OF RANGE REFERENCE UNITS LAB L501.080 70-110 mg/dL Normal BEDSIDE GLU 110 Result Comment: MANAGEMENT OF PATIENT CARE PER NURSING PROTOCOL Performed By: #### L501.080 #### [facility] Point of Care [address] [place] [address] CNPTOUTREACH Observed: 12/09/2017 Status: COMPLETED Source: [place] 12:00 AM [facility] REPOSITORY Patient Outreach (FAMPWS) EMILEE BASSETT ([id number]) 1965 F Date Time Provider Department 12/09/17 JOAN CORTEZ) DHRUV During your visit today, we recorded the following information about you: Joan Cortez MA 01/09/2018 3:05 PM Signed Spoke to Camille, at [facility]. Patient hasn't been discharge yet. There are waiting for orders to be written by . I will Make a follow up call on January 12. DEMETRA Delgado MA 01/09/2018 3:08 PM Signed Enter on the wrong encounter for the patient. Joan Cortez MA Allergies As of Date: 12/09/2017 Noted Allergy Reaction LATEX 01/18/2009 7 - Swelling BLUEBERRY 02/02/2016 6 - Diarrhea LACTOSE INTOLERANCE (LACTASE) 03/16/2007 MUSHROOM 10/24/2015 12 - Shortness of Breath STRAWBERRY 10/24/2015 4 - Hives Date Reviewed: 02/06/2017 Reviewed by: Jaylene Frias - Fully Assessed Reason for Visit: PHMA/Care Gap Outreach [3604] Order(s):HGB A1C [[id number]] Order #: [id number] LDL CHOLESTEROL DIR [SQLDLDCT] Order #: [id number] LIPID PANEL - EXTERNAL [[id number]] Order #: [id number] Prescriptions as of 12/09/2017 Sig: DILTIAZEM SR 240 MG 24 HR CAP Take 1 capsule by mouth once * ACETAZOLAMIDE 250 MG TABLET Take 1 tablet by mouth three * FUROSEMIDE 20 MG TABLET Take 1 tablet by mouth twice * GUAIFENESIN ER 1,200 MG TABLE* Take 1 tablet by mouth twice * NYSTATIN 100,000 UNIT/GRAM TO* Apply 1 application to affect* MENTHOL 0.44 %-ZINC OXIDE 20.* Apply 1 application to affect* POLYETHYLENE GLYCOL 3350 17 G* Take 1 Packet by mouth once d* ACETAMINOPHEN 325 MG TABLET Take 2 tablets by mouth every* METOPROLOL SUCCINATE ER 25 MG* Take 1 tablet by mouth once d* OXYBUTYNIN CHLORIDE ER 15 MG * Take 1 tablet by mouth once d* DICYCLOMINE 20 MG TABLET Take 1 tablet by mouth every * PANTOPRAZOLE 40 MG TABLET,DEL* Take 1 tablet by mouth once d* LISINOPRIL 5 MG TABLET Take 1 tablet by mouth once d* TRAMADOL 50 MG TABLET Take 1 tablet by mouth three * NIFEREX-150 ORAL Take 150 mg by mouth once terry* APIXABAN 5 MG TABLET Take by mouth once daily. ALBUTEROL SULFATE HFA 90 MCG/* Inhale 2 Puffs as instructed * GLUCOSE GEL ORAL Take by mouth as needed (1 d* GLIMEPIRIDE 2 MG TABLET Take 1 tablet by mouth daily * OMEPRAZOLE 20 MG CAPSULE,HOANG* Take 1 capsule by mouth once * MELOXICAM 15 MG TABLET Take 1 tablet by mouth once d* COMPOUNDED PRESCRIPTION Bariatric Hospital Bed. BUPROPION XL 150 MG TAB Take 1 tablet by mouth once d* FUROSEMIDE 80 MG TABLET Take 1 tablet by mouth twice * POTASSIUM CHLORIDE 20 MEQ ORA* Take 20 mEq by mouth twice da* INSULIN DETEMIR (U-100) 100 U* 10 units daily at bedtime HYDROCHLOROTHIAZIDE 25 MG TAB* Take 1 tablet by mouth once d* CYCLOBENZAPRINE 10 MG TABLET Take 1 tablet by mouth three * BLOOD-GLUCOSE METER KIT 1 Each as needed. BLOOD SUGAR DIAGNOSTIC STRIPS Test blood sugar(s) 1 times d* LANCETS Test blood sugar(s) 1 times * NAPROXEN SODIUM 220 MG TABLET Take 1 tablet by mouth twice * ALBUTEROL SULFATE HFA 90 MCG/* Inhale 2 Puffs as instructed * * THERAPEUTIC MULTIVITAMIN TABL* Take one(1) tablet daily. Problem List As Of Date 12/09/2017 Noted Resolved BENIGN HYPERTENSION [I10] INVALID FOR* ASTHMA UNSPECIFIED [J45.909] INVALID FOR* Obesity, Class III, BMI 40-49.9 (morbid obesity*INVALID FOR* GENERAL OSTEOARTHROSIS [M15.9] INVALID FOR* LUMBAGO [M54.5] INVALID FOR* Pure Hyperglyceridemia [E78.1] INVALID FOR* Cholelithiasis [K80.20] INVALID FOR* Sleep apnea [G47.30] INVALID FOR* Leg pain, bilateral [M79.604, M79.605] INVALID FOR* Mixed hyperlipidemia [E78.2] INVALID FOR* Type 2 diabetes mellitus without complication (*INVALID FOR* Congestive heart failure (HCC) [I50.9] INVALID FOR* Encounter Status:Closed by JOAN CORTEZ on 12/09/17 BEDSIDE GLUCOSE Collected: 12/08/2017 Status: F Source: [place] 9:23 PM [facility] REPOSITORY TYPE CODE TESTS RESULT OUT OF REFERENCE UNITS RANGE LAB L501.080 70-110 mg/dL High BEDSIDE GLU 129 Result Comment: MANAGEMENT OF PATIENT CARE PER NURSING PROTOCOL Performed By: #### L501.080 #### [facility] Point of Care [address] [place], [place] [address] BEDSIDE GLUCOSE Collected: 12/08/2017 Status: F Source: [place] 4:37 PM [facility] REPOSITORY TYPE CODE TESTS RESULT OUT OF REFERENCE UNITS RANGE LAB L501.080 70-110 mg/dL High BEDSIDE GLU 115 Result Comment: MANAGEMENT OF PATIENT CARE PER NURSING PROTOCOL Performed By: #### L501.080 #### [facility] Point of Care [address] [place] [address] BEDSIDE GLUCOSE Collected: 12/08/2017 Status: F Source: [place] 11:03 AM [facility] REPOSITORY TYPE CODE TESTS RESULT OUT OF REFERENCE UNITS RANGE LAB L501.080 70-110 mg/dL High BEDSIDE GLU 176 Result Comment: MANAGEMENT OF PATIENT CARE PER NURSING PROTOCOL Performed By: #### L501.080 #### [facility] Point of Care [address] [place] [address] BEDSIDE GLUCOSE Collected: 12/08/2017 Status: F Source: [place] 6:32 AM [facility] REPOSITORY TYPE CODE TESTS RESULT OUT OF REFERENCE UNITS RANGE LAB L501.080 70-110 mg/dL High BEDSIDE GLU 122 Result Comment: MANAGEMENT OF PATIENT CARE PER NURSING PROTOCOL Performed By: #### L501.080 #### [facility] Point of Care [address] [place] [address] BEDSIDE GLUCOSE Collected: 12/07/2017 Status: F Source: [place] 8:51 PM [facility] REPOSITORY TYPE CODE TESTS RESULT OUT OF REFERENCE UNITS RANGE LAB L501.080 70-110 mg/dL High BEDSIDE GLU 158 Result Comment: MANAGEMENT OF PATIENT CARE PER NURSING PROTOCOL Performed By: #### L501.080 #### [facility] Point of Care [address] [place] [address] BEDSIDE GLUCOSE Collected: 12/07/2017 Status: F Source: [place] 5:05 PM [facility] REPOSITORY TYPE CODE TESTS RESULT OUT OF REFERENCE UNITS RANGE LAB L501.080 70-110 mg/dL High BEDSIDE GLU 111 Result Comment: MANAGEMENT OF PATIENT CARE PER NURSING PROTOCOL Performed By: #### L501.080 #### [facility] Point of Care [address] [place] [address] BEDSIDE GLUCOSE Collected: 12/07/2017 Status: F Source: [place] 11:37 AM [facility] REPOSITORY TYPE CODE TESTS RESULT OUT OF REFERENCE UNITS RANGE LAB L501.080 70-110 mg/dL High BEDSIDE GLU 148 Result Comment: Dr Ramos Followed MANAGEMENT OF PATIENT CARE PER NURSING PROTOCOL Performed By: #### L501.080 #### [facility] Point of Care [address] [place] [address] BEDSIDE GLUCOSE Collected: 12/07/2017 Status: F Source: [place] 6:33 AM [facility] REPOSITORY TYPE CODE TESTS RESULT OUT OF RANGE REFERENCE UNITS LAB L501.080 70-110 mg/dL Normal BEDSIDE GLU 99 Result Comment: MANAGEMENT OF PATIENT CARE PER NURSING PROTOCOL Performed By: #### L501.080 #### [facility] Point of Care [address] [place] [address] BEDSIDE GLUCOSE Collected: 12/06/2017 Status: F Source: [place] 9:03 PM [facility] REPOSITORY TYPE CODE TESTS RESULT OUT OF RANGE REFERENCE UNITS LAB L501.080 70-110 mg/dL Normal BEDSIDE GLU 108 Result Comment: MANAGEMENT OF PATIENT CARE PER NURSING PROTOCOL Performed By: #### L501.080 #### [facility] Point of Care [address] [place] [address] BEDSIDE GLUCOSE Collected: 12/06/2017 Status: F Source: [place] 4:40 PM [facility] REPOSITORY TYPE CODE TESTS RESULT OUT OF REFERENCE UNITS RANGE LAB L501.080 70-110 mg/dL High BEDSIDE GLU 154 Result Comment: MANAGEMENT OF PATIENT CARE PER NURSING PROTOCOL Performed By: #### L501.080 #### [facility] Point of Care [address] [place] [address] BEDSIDE GLUCOSE Collected: 12/06/2017 Status: F Source: [place] 11:31 AM [facility] REPOSITORY TYPE CODE TESTS RESULT OUT OF REFERENCE UNITS RANGE LAB L501.080 70-110 mg/dL High BEDSIDE GLU 167 Result Comment: MANAGEMENT OF PATIENT CARE PER NURSING PROTOCOL Performed By: #### L501.080 #### [facility] Point of Care [address] [place] [address] BEDSIDE GLUCOSE Collected: 12/06/2017 Status: F Source: [place] 6:42 AM [facility] REPOSITORY TYPE CODE TESTS RESULT OUT OF REFERENCE UNITS RANGE LAB L501.080 70-110 mg/dL High BEDSIDE GLU 117 Result Comment: MANAGEMENT OF PATIENT CARE PER NURSING PROTOCOL Performed By: #### L501.080 #### [facility] Point of Care [address] [place] [address] BEDSIDE GLUCOSE Collected: 12/05/2017 Status: F Source: [place] 8:57 PM [facility] REPOSITORY TYPE CODE TESTS RESULT OUT OF REFERENCE UNITS RANGE LAB L501.080 70-110 mg/dL High BEDSIDE GLU 165 Result Comment: MANAGEMENT OF PATIENT CARE PER NURSING PROTOCOL Performed By: #### L501.080 #### [facility] Point of Care [address] [place] [address] BEDSIDE GLUCOSE Collected: 12/05/2017 Status: F Source: [place] 4:53 PM [facility] REPOSITORY TYPE CODE TESTS RESULT OUT OF REFERENCE UNITS RANGE LAB L501.080 70-110 mg/dL High BEDSIDE GLU 119 Result Comment: Dr Orders Followed MANAGEMENT OF PATIENT CARE PER NURSING PROTOCOL Performed By: #### L501.080 #### [facility] Point of Care [address] [place] [address] BEDSIDE GLUCOSE Collected: 12/05/2017 Status: F Source: [place] 11:51 AM [facility] REPOSITORY TYPE CODE TESTS RESULT OUT OF REFERENCE UNITS RANGE LAB L501.080 70-110 mg/dL High BEDSIDE GLU 140 Result Comment: MANAGEMENT OF PATIENT CARE PER NURSING PROTOCOL Performed By: #### L501.080 #### [place] [facility] Point of Care [address] [place] [address] BEDSIDE GLUCOSE Collected: 12/05/2017 Status: F Source: [place] 6:13 AM [facility] REPOSITORY TYPE CODE TESTS RESULT OUT OF RANGE REFERENCE UNITS LAB L501.080 70-110 mg/dL Normal BEDSIDE GLU 109 Result Comment: MANAGEMENT OF PATIENT CARE PER NURSING PROTOCOL Performed By: #### L501.080 #### [place] [facility] Point of Care [address] [place] [address] BASIC METABOLIC Collected: 12/05/2017 Status: F Source: [place] PROFILE (BMP) 5:12 AM [facility] REPOSITORY Order Comment: SPECIMEN OBTAINED FROM LINE DRAW TYPE CODE TESTS RESULT OUT OF RANGE REFERENCE UNITS LAB L501.0100 74-106 mg/dL High GLU 109 Result Comment: Fasting Glucose result from 100 to 125 mg/dL suggests IMPAIRED HOMEOSTASIS per A.D.A. criteria. Please note revised GLUCOSE reference range effective 2017. LAB L501.1000 7-18 mg/dL High BUN 44 LAB L501.1100 0.55-1.02 mg/dL Normal CREAT,SERUM 0.92 Result Comment: The validity of the calculated GFR AND GFRAA in patients over 70 years has not been determined. Clinical correlation is essential. LAB L501.1110 >60 mL/min Normal EST GFR 68 Result Comment: Non- GFR Calc LAB L501.1115 >60 mL/min Normal EST GFR - AA 82 Result Comment: GFR Calc LAB L501.1255 ml/min Normal Estimated CRCL 51.38 LAB L501.1300 10-20 RATIO High BUN/CRE 47.7 LAB L501.2200 8.5-10 mg/dL Normal .1 CA 8.5 LAB L501.5300 136-14 mmol/L Normal 5 NA 144 LAB L501.5600 3.5-5. mmol/L Normal 1 K 3.9 LAB L501.5900 98-107 mmol/L Normal CL 107 LAB L501.6100 21.0-3 mmol/L Normal 2.0 CO2 31.0 LAB L501.6200 5-15 Normal GAP 6 Performed By: #### L500.2500 #### [facility] [address] [place], [place], [address] CBC W/DIFF, AUTOMATED Collected: 12/05/2017 Status: F Source: [place] 5:12 AM [facility] REPOSITORY Order Comment: SPECIMEN OBTAINED FROM LINE DRAW TYPE CODE TESTS RESULT OUT OF RANGE REFERENCE UNITS LAB L100.1000 4.4-11.0 K/mm3 Normal WBC 5.7 LAB L100.1200 4.2-5.4 M/mm3 Low RBC 3.47 LAB L100.1300 12.0-15.0 g/dl Low HGB 9.3 LAB L100.1400 37-47 % Low HCT 31.6 LAB L100.1500 81-99 fL Normal MCV 91.1 LAB L100.1600 27.0-32.0 pg Low MCH 26.8 LAB L100.1700 32-36 g/gl Low MCHC 29.4 LAB L100.1810 11.6-14.6 % High RDW CV 16.3 LAB L100.1820 35.1-43.9 fl High RDW SD 54.4 LAB L100.1900 150-450 K/mm3 Normal PLT 168 LAB L100.2000 6.2-12.0 fl Normal MPV 8.7 LAB L100.2100 47-70 % Normal NEUT% 60.3 LAB L100.2200 19-41 % Normal LY% 27.4 LAB L100.2300 0-10 % Normal MONO% 6.4 LAB L100.2400 0-5 % High EO% 5.3 LAB L100.2500 0-1 % Normal BASO% 0.2 LAB L100.2550 0.0-0.9 % Normal IM GRAN % 0.400 Result Comment: IG% - Immature Granulocytes (promyelocytes, myelocytes and metamyelocytes) > 1% indicates that a LEFT SHIFT is Present. LAB L100.2620 2.0-7.7 X10 3/uL Normal Absolute Neut 3.4 LAB L100.2720 0.83-4.51 X10 3/ul Normal Absolute Lymph 1.55 Performed By: #### L100.0100 #### [facility] [address] [place], [place], [address] BEDSIDE GLUCOSE Collected: 12/04/2017 Status: F Source: [place] 8:55 PM [facility] REPOSITORY TYPE CODE TESTS RESULT OUT OF REFERENCE UNITS RANGE LAB L501.080 70-110 mg/dL High BEDSIDE GLU 144 Result Comment: MANAGEMENT OF PATIENT CARE PER NURSING PROTOCOL Performed By: #### L501.080 #### [facility] Point of Care [address] [place], [place] [address] BEDSIDE GLUCOSE Collected: 12/04/2017 Status: F Source: [place] 4:45 PM [facility] REPOSITORY TYPE CODE TESTS RESULT OUT OF REFERENCE UNITS RANGE LAB L501.080 70-110 mg/dL High BEDSIDE GLU 117 Result Comment: MANAGEMENT OF PATIENT CARE PER NURSING PROTOCOL Performed By: #### L501.080 #### [place] [facility] Point of Care [address] [place], [place] [address] BEDSIDE GLUCOSE Collected: 12/04/2017 Status: F Source: [place] 11:49 AM [facility] REPOSITORY TYPE CODE TESTS RESULT OUT OF REFERENCE UNITS RANGE LAB L501.080 70-110 mg/dL High BEDSIDE GLU 143 Result Comment: MANAGEMENT OF PATIENT CARE PER NURSING PROTOCOL Performed By: #### L501.080 #### [facility] Point of Care [address] [place], [place] [address] PROGRESS Observed: 12/04/2017 Status: COMPLETED Source: [place] 9:40 AM [facility] REPOSITORY O ID: [id number] Author: Cedrick Carballo (Rn) Service: (none) Author Type: Registered Nurse Type: Progress Notes Filed: 12/04/2017 9:45 AM Note Text: PRIMARY CARE COORDINATION QUICK NOTE Provider Action/FYI Noted, Thank You Patient identified by name and date . Kait Philip RN December 04, 2017 9:44 AM BEDSIDE GLUCOSE Collected: 12/04/2017 Status: F Source: [place] 6:37 AM [facility] REPOSITORY TYPE CODE TESTS RESULT OUT OF REFERENCE UNITS RANGE LAB L501.080 70-110 mg/dL High BEDSIDE GLU 119 Result Comment: MANAGEMENT OF PATIENT CARE PER NURSING PROTOCOL Performed By: #### L501.080 #### [facility] Point of Care [address] [place] [address] BEDSIDE GLUCOSE Collected: 12/03/2017 Status: F Source: [place] 8:48 PM [facility] REPOSITORY TYPE CODE TESTS RESULT OUT OF REFERENCE UNITS RANGE LAB L501.080 70-110 mg/dL High BEDSIDE GLU 158 Result Comment: MANAGEMENT OF PATIENT CARE PER NURSING PROTOCOL Performed By: #### L501.080 #### [facility] Point of Care [address] [place] [address] BEDSIDE GLUCOSE Collected: 12/03/2017 Status: F Source: [place] 4:42 PM [facility] REPOSITORY TYPE CODE TESTS RESULT OUT OF REFERENCE UNITS RANGE LAB L501.080 70-110 mg/dL High BEDSIDE GLU 134 Result Comment: MANAGEMENT OF PATIENT CARE PER NURSING PROTOCOL Performed By: #### L501.080 #### [facility] Point [facility] Care [address] [place] [address] PROGRESS Observed: 12/03/2017 Status: COMPLETED Source: [place] 2:07 PM [facility] REPOSITORY O ID: [id number] Author: Joan Cortez Service: (none) Author Type: Medical Health Researcher Type: Progress Notes Filed: 12/04/2017 9:45 AM Note Text: Spoke with Nenita at [facility] ([phone]) Patient is doing fairly well. On IV antibiotics and has a wound vac on her thigh. Patient will be TCU until IV antibiotics are discontinued. No discharge date available at this time. Joan Cortez MA BEDSIDE GLUCOSE Collected: 12/03/2017 Status: F Source: [place] 11:02 AM [facility] REPOSITORY TYPE CODE TESTS RESULT OUT OF REFERENCE UNITS RANGE LAB L501.080 70-110 mg/dL High BEDSIDE GLU 158 Result Comment: Dr Ramos Followed MANAGEMENT OF PATIENT CARE PER NURSING PROTOCOL Performed By: #### L501.080 #### [facility] Point [facility] Care [address] [place] [address] BEDSIDE GLUCOSE Collected: 12/03/2017 Status: F Source: [place] 6:40 AM [facility] REPOSITORY TYPE CODE TESTS RESULT OUT OF REFERENCE UNITS RANGE LAB L501.080 70-110 mg/dL High BEDSIDE GLU 127 Result Comment: MANAGEMENT OF PATIENT CARE PER NURSING PROTOCOL Performed By: #### L501.080 #### [facility] Point [facility] Care [address] [place] [address] BEDSIDE GLUCOSE Collected: 12/02/2017 Status: F Source: [place] 9:03 PM [facility] REPOSITORY TYPE CODE TESTS RESULT OUT OF REFERENCE UNITS RANGE LAB L501.080 70-110 mg/dL High BEDSIDE GLU 148 Result Comment: Dr Orders Followed MANAGEMENT OF PATIENT CARE PER NURSING PROTOCOL Performed By: #### L501.080 #### [facility] Point [facility] Care [address] [place] [address] BEDSIDE GLUCOSE Collected: 12/02/2017 Status: F Source: [place] 4:57 PM [facility] REPOSITORY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 #### L501.080 #### [facility] Point [facility] Care [address] [place] [address] BEDSIDE GLUCOSE Collected: 11/25/2017 Status: F Source: YOL[place]DA 5:03 PM [facility] REPOSITORY TYPE CODE TESTS RESULT OUT OF REFERENCE UNITS RANGE LAB L501.080 70-110 mg/dL High BEDSIDE GLU 118 Result Comment: MANAGEMENT OF PATIENT CARE PER NURSING PROTOCOL Performed By: #### L501.080 #### [facility] Point of Care [address] [place] [address] BEDSIDE GLUCOSE Collected: 11/25/2017 Status: F Source: [place] 10:57 AM [facility] REPOSITORY TYPE CODE TESTS RESULT OUT OF REFERENCE UNITS RANGE LAB L501.080 70-110 mg/dL High BEDSIDE GLU 181 Result Comment: MANAGEMENT OF PATIENT CARE PER NURSING PROTOCOL Performed By: #### L501.080 #### [facility] Point [facility] [address] [place] [address] BEDSIDE GLUCOSE Collected: 11/25/2017 Status: F Source: YOL[place]DA 6:20 AM [facility] REPOSITORY TYPE CODE TESTS RESULT OUT OF REFERENCE UNITS RANGE LAB L501.080 70-110 mg/dL High BEDSIDE GLU 140 Result Comment: MANAGEMENT OF PATIENT CARE PER NURSING PROTOCOL Performed By: #### L501.080 #### [facility] Point of Care [address] [place] [address] BEDSIDE GLUCOSE Collected: 11/24/2017 Status: F Source: YOL[place]DA 9:03 PM [facility] REPOSITORY TYPE CODE TESTS RESULT OUT OF REFERENCE UNITS RANGE LAB L501.080 70-110 mg/dL High BEDSIDE GLU 157 Result Comment: MANAGEMENT OF PATIENT CARE PER NURSING PROTOCOL Performed By: #### L501.080 #### [facility] Point [facility] [address] [place] [address] BEDSIDE GLUCOSE Collected: 11/24/2017 Status: F Source: YOL[place]DA 4:45 PM [facility] REPOSITORY TYPE CODE TESTS RESULT OUT OF RANGE REFERENCE UNITS LAB L501.080 70-110 mg/dL Normal BEDSIDE GLU 106 Result Comment: MANAGEMENT OF PATIENT CARE PER NURSING PROTOCOL Performed By: #### L501.080 #### [facility] Laboratory Point of Care [address] [place] [address] PROGRESS Observed: 11/24/2017 Status: COMPLETED Source: [place] 3:37 PM [facility] REPOSITORY HNO ID: [id number] Author: Cedrick Carballo (Rn) Service: (none) Author Type: Registered Nurse Type: Progress Notes Filed: 12/04/2017 9:45 AM Note Text: PRIMARY CARE COORDINATION FOLLOW-UP NOTE Provider Action/FYI 1.Call to Pt who reports was Adm to [facility] for a left leg bacterial Infection, near her groin noting had surgery performed by Dr. Tran, IV Atb D/d'd, Pt is currently in TCU with no anticipated discharge date. 2. Call to [facility] TCU spk with Maren Sellers RN who noted Pt adm to [facility] ? ( system was down, will have to call Medical records dept) transfer to TCU 11/14/17 remains Inpt In TCU for left medial thigh abscess, with I/D 11/11/17. Patient identified by name and date of . YES Spoke to patient Stunt Man plan for next outreach: Signature Kait Philip RN November 24, 2017 PROGRESS Observed: 11/24/2017 Status: COMPLETED Source: [place] 1:29 PM [facility] REPOSITORY HNO ID: [id number] Author: Cedrick Carballo (Rn) Service: (none) Author Type: Registered Nurse Type: Progress Notes Filed: 11/24/2017 1:30 PM Note Text: PRIMARY CARE COORDINATION QUICK NOTE Provider Action/FYI Opened in error Patient identified by name and date . Kait Philip RN November 24, 2017 1:29 PM BEDSIDE GLUCOSE Collected: 11/24/2017 Status: F Source: [place] 11:07 AM [facility] REPOSITORY TYPE CODE TESTS RESULT OUT OF REFERENCE UNITS RANGE LAB L501.080 70-110 mg/dL High BEDSIDE GLU 156 Result Comment: MANAGEMENT OF PATIENT CARE PER NURSING PROTOCOL Performed By: #### L501.080 #### [facility] Point of Care [address] [place] [address] BEDSIDE GLUCOSE Collected: 11/24/2017 Status: F Source: [place] 6:13 AM [facility] REPOSITORY TYPE CODE TESTS RESULT OUT OF REFERENCE UNITS RANGE LAB L501.080 70-110 mg/dL High BEDSIDE GLU 140 Result Comment: MANAGEMENT OF PATIENT CARE PER NURSING PROTOCOL Performed By: #### L501.080 #### [facility] Point of Care [address] [place] [address] CNPTOUTREACH Observed: 11/24/2017 Status: COMPLETED Source: [place] 12:00 AM [facility] REPOSITORY Patient Outreach (FAMPWS) EMILEE BASSETT ([id number]) 1965 F Date Time Provider Department 11/24/17 CEDRICK CARBALLO (RN) FAMPWS During your visit today, we recorded the following information about you: Kait Philip RN 12/04/2017 9:45 AM Signed PRIMARY CARE COORDINATION FOLLOW-UP NOTE Provider Action/FYI 1.Call to Pt who reports was Adm to [facility] for a left leg bacterial Infection, near her groin noting had surgery performed by Dr. Tran, BRITTANY Atb D/d'd, Pt is currently in TCU with no anticipated discharge date. 2. Call to [facility] TCU spk with Maren Sellers RN who noted Pt adm to [facility] ? ( system was down, will have to call Medical records dept) transfer to TCU 11/14/17 remains Inpt In TCU for left medial thigh abscess, with I/D 11/11/17. Patient identified by name and date of . YES Spoke to patient Stunt Man plan for next outreach: Signature Kait Philip RN November 24, 2017 Kait Philip RN 12/04/2017 9:45 AM Signed TRANSITION CARE MANAGEMENT (TCM) DISCHARGE TO POST ACUTE FACILITY POST ACUTE TRANSFER SUMMARY: -Pt discharged from [facility] 11/11/17-11/14/17? ( Call to [facility] TCU to verify dates due to [employer] being down) -Post Acute Facility Admitted to [facility] TCU 11/14/17 Spk with Nenita U, provided Joan TENORIO phone number for D/C f/u, no anticipated D/C date known. -Admitted for: for left medial thigh abscess, with I/D 11/11/17. Thank You, Kait Philip RN November 26, 2017 10:49 AM Joan Cortez MA 12/04/2017 9:45 AM Signed Noted. Joan Cortez MA 12/04/2017 9:45 AM Signed Spoke with Nenita at [facility] ([phone]) Patient is doing fairly well. On IV antibiotics and has a wound vac on her thigh. Patient will be TCU until IV antibiotics are discontinued. No discharge date available at this time. DEMETRA Delgado RN 12/04/2017 9:45 AM Signed PRIMARY CARE COORDINATION QUICK NOTE Provider Action/FYI Noted, Thank You Patient identified by name and date . Kait Philip RN December 04, 2017 9:44 AM Joan Cortez MA 12/09/2017 9:24 AM Signed Spoke with Meera at [facility] TCU,to get an update on Emilee Bassett condition. Patient is doing okay, wound is healing slowly. She a wound vac on left medial thigh. Culture of the wound showed Pseudomonas aerogenous. Patient was started on IV Meropenem for approximately 6 weeks for the infection No discharge date has been determined at this time. I will call for update on 12-17-17. DEMETRA Delgado RN 12/09/2017 12:49 PM Signed PRIMARY CARE COORDINATION QUICK NOTE Provider Action/FYI Noted Thank You Patient identified by name and date . Kait Philip RN December 09, 2017 12:48 PM Joan Cortez MA 12/17/2017 9:16 AM Signed Called Nenita regarding Emilee Bassett at [facility] . Patient is doing ok. She still receiving IV Meropene daily for her infection. She has a wound vac on left medial thigh. No discharge date is planned at this time. I will follow up with Nenita at [facility] on Sunday, December 24, 2017. DEMETRA Delgado RN 12/17/2017 12:39 PM Signed PRIMARY CARE COORDINATION QUICK NOTE Provider Action/FYI Noted, Thank You Patient identified by name and date . Kait Philip RN December 17, 2017 12:26 PM Joan Cortez MA 12/19/2017 3:28 PM Signed Left message at [facility] regarding her condition. Joan Cortez MA 12/25/2017 2:27 PM Signed Spoke to Kandi at [facility] regarding Emilee Bassett. She is doing well and still on IV antibiotics. Patient has a wound vac on her left medial thigh. No discharge date has be discussed. I will follow up on 12-31-17. DEMETRA Delgado MA 12/31/2017 9:42 AM Signed Spoke with Ayaka from [facility], regarding Emilee Bassett. Patient is doing well. She is on IV antibiotics and using a wound vac on the left medial thigh. They found some bed bugs on the patienct. The wound vac on the infected area when the bugs were found. The next follow up call is scheduled for January 07. DEMETRA Delgado MA 01/07/2018 12:11 PM Signed Spoke with Joaquín [facility]. Wound looks much better, it 's smaller. Dr Tran is coming to [facility] to evaluate the wound. Still on IV antibiotics and using the wound vac. Discharge date is 01-09-18. I will follow on Friday. DEMETRA Delgado MA 01/09/2018 3:12 PM Signed Spoke with Camille at [facility], TCU. The patient has not been discharge yet. She needs orders written by . I will follow up with TCU on January 12. DEMETRA Delgado MA 01/12/2018 12:47 PM Signed Called TCU at [facility]. Patient was not discharged over the weekend. No discharge is planned yet. I will follow up on Friday. DEMETRA Delgado MA 01/14/2018 10:39 AM Signed TRANSITION CARE MANAGEMENT (TCM) DISCHARGE FROM POST ACUTE FACILITY POST ACUTE TRANSFER SUMMARY: - Spoke to: Facility member - Pt discharged Home on 01-13-18. - Records requested [facility] discharge medication list discharge instructions labs and imaging. Allergies As of Date: 11/24/2017 Noted Allergy Reaction LATEX 01/18/2009 7 - Swelling BLUEBERRY 02/02/2016 6 - Diarrhea LACTOSE INTOLERANCE (LACTASE) 03/16/2007 MUSHROOM 10/24/2015 12 - Shortness of Breath STRAWBERRY 10/24/2015 4 - Hives Date Reviewed: 02/06/2017 Reviewed by: Jaylene Frias - Fully Assessed Reason for Visit: Wet Process [facility] [3622] Cmt: Pcp Appt/ [facility] TCU 11/14/17 Reason For Visit History Recorded Prescriptions as of 11/24/2017 Sig: DILTIAZEM SR 240 MG 24 HR CAP Take 1 capsule by mouth once * ACETAZOLAMIDE 250 MG TABLET Take 1 tablet by mouth three * FUROSEMIDE 20 MG TABLET Take 1 tablet by mouth twice * GUAIFENESIN ER 1,200 MG TABLE* Take 1 tablet by mouth twice * NYSTATIN 100,000 UNIT/GRAM TO* Apply 1 application to affect* MENTHOL 0.44 %-ZINC OXIDE 20.* Apply 1 application to affect* POLYETHYLENE GLYCOL 3350 17 G* Take 1 Packet by mouth once d* ACETAMINOPHEN 325 MG TABLET Take 2 tablets by mouth every* METOPROLOL SUCCINATE ER 25 MG* Take 1 tablet by mouth once d* OXYBUTYNIN CHLORIDE ER 15 MG * Take 1 tablet by mouth once d* DICYCLOMINE 20 MG TABLET Take 1 tablet by mouth every * PANTOPRAZOLE 40 MG TABLET,DEL* Take 1 tablet by mouth once d* LISINOPRIL 5 MG TABLET Take 1 tablet by mouth once d* TRAMADOL 50 MG TABLET Take 1 tablet by mouth three * NIFEREX-150 ORAL Take 150 mg by mouth once terry* APIXABAN 5 MG TABLET Take by mouth once daily. ALBUTEROL SULFATE HFA 90 MCG/* Inhale 2 Puffs as instructed * GLUCOSE GEL ORAL Take by mouth as needed (1 d* GLIMEPIRIDE 2 MG TABLET Take 1 tablet by mouth daily * OMEPRAZOLE 20 MG CAPSULE,HOANG* Take 1 capsule by mouth once * MELOXICAM 15 MG TABLET Take 1 tablet by mouth once d* COMPOUNDED PRESCRIPTION Bariatric Hospital Bed. BUPROPION XL 150 MG TAB Take 1 tablet by mouth once d* FUROSEMIDE 80 MG TABLET Take 1 tablet by mouth twice * POTASSIUM CHLORIDE 20 MEQ ORA* Take 20 mEq by mouth twice da* INSULIN DETEMIR (U-100) 100 U* 10 units daily at bedtime HYDROCHLOROTHIAZIDE 25 MG TAB* Take 1 tablet by mouth once d* CYCLOBENZAPRINE 10 MG TABLET Take 1 tablet by mouth three * BLOOD-GLUCOSE METER KIT 1 Each as needed. BLOOD SUGAR DIAGNOSTIC STRIPS Test blood sugar(s) 1 times d* LANCETS Test blood sugar(s) 1 times * NAPROXEN SODIUM 220 MG TABLET Take 1 tablet by mouth twice * ALBUTEROL SULFATE HFA 90 MCG/* Inhale 2 Puffs as instructed * * THERAPEUTIC MULTIVITAMIN TABL* Take one(1) tablet daily. Problem List As Of Date 11/24/2017 Noted Resolved BENIGN HYPERTENSION [I10] INVALID FOR* ASTHMA UNSPECIFIED [J45.909] INVALID FOR* Obesity, Class III, BMI 40-49.9 (morbid obesity*INVALID FOR* GENERAL OSTEOARTHROSIS [M15.9] INVALID FOR* LUMBAGO [M54.5] INVALID FOR* Pure Hyperglyceridemia [E78.1] INVALID FOR* Cholelithiasis [K80.20] INVALID FOR* Sleep apnea [G47.30] INVALID FOR* Leg pain, bilateral [M79.604, M79.605] INVALID FOR* Mixed hyperlipidemia [E78.2] INVALID FOR* Type 2 diabetes mellitus without complication (*INVALID FOR* Congestive heart failure (HCC) [I50.9] INVALID FOR* Follow-up and Disposition History Recorded Encounter Status:Closed by KAIT PHILIP on 6/28/18 BEDSIDE GLUCOSE Collected: 11/23/2017 Status: F Source: [place] 9:00 PM [facility] REPOSITORY TYPE CODE TESTS RESULT OUT OF REFERENCE UNITS RANGE LAB L501.080 70-110 mg/dL High BEDSIDE GLU 131 Result Comment: MANAGEMENT OF PATIENT CARE PER NURSING PROTOCOL Performed By: #### L501.080 #### [facility] Point of Care [address] [place] [address] BEDSIDE GLUCOSE Collected: 11/23/2017 Status: F Source: [place] 4:43 PM [facility] REPOSITORY TYPE CODE TESTS RESULT OUT OF REFERENCE UNITS RANGE LAB L501.080 70-110 mg/dL High BEDSIDE GLU 111 Result Comment: MANAGEMENT OF PATIENT CARE PER NURSING PROTOCOL Performed By: #### L501.080 #### [facility] Point of Care [address] [place] [address] BEDSIDE GLUCOSE Collected: 11/23/2017 Status: F Source: [place] 11:06 AM [facility] REPOSITORY TYPE CODE TESTS RESULT OUT OF REFERENCE UNITS RANGE LAB L501.080 70-110 mg/dL High BEDSIDE GLU 146 Result Comment: MANAGEMENT OF PATIENT CARE PER NURSING PROTOCOL Performed By: #### L501.080 #### [facility] Point of Care [address] [place] [address] BEDSIDE GLUCOSE Collected: 11/23/2017 Status: F Source: [place] 6:29 AM [facility] REPOSITORY TYPE CODE TESTS RESULT OUT OF REFERENCE UNITS RANGE LAB L501.080 70-110 mg/dL High BEDSIDE GLU 142 Result Comment: MANAGEMENT OF PATIENT CARE PER NURSING PROTOCOL Performed By: #### L501.080 #### [facility] Point of Care [address] [place] [address] BEDSIDE GLUCOSE Collected: 11/22/2017 Status: F Source: [place] 9:11 PM [facility] REPOSITORY TYPE CODE TESTS RESULT OUT OF REFERENCE UNITS RANGE LAB L501.080 70-110 mg/dL High BEDSIDE GLU 144 Result Comment: MANAGEMENT OF PATIENT CARE PER NURSING PROTOCOL Performed By: #### L501.080 #### [facility] Point of Care [address] [place] [address] BEDSIDE GLUCOSE Collected: 11/22/2017 Status: F Source: [place] 4:52 PM [facility] REPOSITORY TYPE CODE TESTS RESULT OUT OF REFERENCE UNITS RANGE LAB L501.080 70-110 mg/dL High BEDSIDE GLU 176 Result Comment: MANAGEMENT OF PATIENT CARE PER NURSING PROTOCOL Performed By: #### L501.080 #### [facility] Point of Care [address] [place] [address] BEDSIDE GLUCOSE Collected: 11/22/2017 Status: F Source: [place] 11:35 AM [facility] REPOSITORY TYPE CODE TESTS RESULT OUT OF REFERENCE UNITS RANGE LAB L501.080 70-110 mg/dL High BEDSIDE GLU 129 Result Comment: MANAGEMENT OF PATIENT CARE PER NURSING PROTOCOL Performed By: #### L501.080 #### [facility] Point of Care [address] [place] [address] BEDSIDE GLUCOSE Collected: 11/22/2017 Status: F Source: [place] 6:51 AM [facility] REPOSITORY TYPE CODE TESTS RESULT OUT OF REFERENCE UNITS RANGE LAB L501.080 70-110 mg/dL High BEDSIDE GLU 129 Result Comment: MANAGEMENT OF PATIENT CARE PER NURSING PROTOCOL Performed By: #### L501.080 #### [facility] Point of Care [address] [place] [address] BEDSIDE GLUCOSE Collected: 11/21/2017 Status: F Source: [place] 8:47 PM [facility] REPOSITORY TYPE CODE TESTS RESULT OUT OF REFERENCE UNITS RANGE LAB L501.080 70-110 mg/dL High BEDSIDE GLU 145 Result Comment: MANAGEMENT OF PATIENT CARE PER NURSING PROTOCOL Performed By: #### L501.080 #### [facility] Point of Care [address] [place] [address] BEDSIDE GLUCOSE Collected: 11/21/2017 Status: F Source: [place] 4:53 PM [facility] REPOSITORY TYPE CODE TESTS RESULT OUT OF REFERENCE UNITS RANGE LAB L501.080 70-110 mg/dL High BEDSIDE GLU 115 Result Comment: MANAGEMENT OF PATIENT CARE PER NURSING PROTOCOL Performed By: #### L501.080 #### [facility] Point of Care [address] [place] [address] BEDSIDE GLUCOSE Collected: 11/21/2017 Status: F Source: [place] 11:10 AM [facility] REPOSITORY TYPE CODE TESTS RESULT OUT OF REFERENCE UNITS RANGE LAB L501.080 70-110 mg/dL High BEDSIDE GLU 150 Result Comment: Dr Ramos Followed MANAGEMENT OF PATIENT CARE PER NURSING PROTOCOL Performed By: #### L501.080 #### [facility] Point of Care [address] [place] [address] BEDSIDE GLUCOSE Collected: 11/21/2017 Status: F Source: [place] 6:39 AM [facility] REPOSITORY TYPE CODE TESTS RESULT OUT OF REFERENCE UNITS RANGE LAB L501.080 70-110 mg/dL High BEDSIDE GLU 130 Result Comment: MANAGEMENT OF PATIENT CARE PER NURSING PROTOCOL Performed By: #### L501.080 #### [facility] Point [facility] Care [address] [place] [address] CBC W/DIFF, AUTOMATED Collected: 11/21/2017 Status: F Source: [place] 5:10 AM [facility] REPOSITORY TYPE CODE TESTS RESULT OUT OF RANGE REFERENCE UNITS LAB L100.1000 4.4-11.0 K/mm3 Normal WBC 6.9 LAB L100.1200 4.2-5.4 M/mm3 Low RBC 3.15 LAB L100.1300 12.0-15.0 g/dl Low HGB 8.5 LAB L100.1400 37-47 % Low HCT 28.9 LAB L100.1500 81-99 fL Normal MCV 91.7 LAB L100.1600 27.0-32.0 pg Normal MCH 27.0 LAB L100.1700 32-36 g/gl Low MCHC 29.4 LAB L100.1810 11.6-14.6 % High RDW CV 16.2 LAB L100.1820 35.1-43.9 fl High RDW SD 54.1 LAB L100.1900 150-450 K/mm3 Normal PLT 210 LAB L100.2000 6.2-12.0 fl Normal MPV 8.5 LAB L100.2100 47-70 % High NEUT% 74.5 LAB L100.2200 19-41 % Low LY% 15.3 LAB L100.2300 0-10 % Normal MONO% 6.2 LAB L100.2400 0-5 % Normal EO% 3.3 LAB L100.2500 0-1 % Normal BASO% 0.3 LAB L100.2550 0.0-0.9 % Normal IM GRAN % 0.400 Result Comment: IG% - Immature Granulocytes (promyelocytes, myelocytes and metamyelocytes) > 1% indicates that a LEFT SHIFT is Present. LAB L100.2620 2.0-7.7 X10 3/uL Normal Absolute Neut 5.2 LAB L100.2720 0.83-4.51 X10 3/ul Normal Absolute Lymph 1.06 Performed By: #### L100.0100, L500.2500 #### [facility] [address] [place], [address] BASIC METABOLIC Collected: 11/21/2017 Status: F Source: [place] PROFILE ([facility]) 5:10 AM [facility] REPOSITORY TYPE CODE TESTS RESULT OUT OF RANGE REFERENCE UNITS LAB L501.0100 74-106 mg/dL High GLU 110 Result Comment: Fasting Glucose result from 100 to 125 mg/dL suggests IMPAIRED HOMEOSTASIS per A.D.A. criteria. Please note revised GLUCOSE reference range effective 2017. LAB L501.1000 7-18 mg/dL Normal BUN 11 LAB L501.1100 0.55-1.02 mg/dL Normal CREAT,SERUM 0.86 Result Comment: The validity of the calculated GFR AND GFRAA in patients over 70 years has not been determined. Clinical correlation is essential. LAB L501.1110 >60 mL/min Normal EST GFR 74 Result Comment: Non- GFR Calc LAB L501.1115 >60 mL/min Normal EST GFR - AA 89 Result Comment: GFR Calc LAB L501.1255 ml/min Normal Estimated CRCL 54.96 LAB L501.1300 10-20 RATIO Normal BUN/CRE 12.8 LAB L501.2200 8.5-10 mg/dL Low .1 CA 8.1 LAB L501.5300 136-14 mmol/L Normal 5 NA 142 LAB L501.5600 3.5-5. mmol/L Normal 1 K 3.5 LAB L501.5900 98-107 mmol/L Normal CL 106 LAB L501.6100 21.0-3 mmol/L Normal 2.0 CO2 29.0 LAB L501.6200 5-15 Normal GAP 7 Performed By: #### L500.2500 #### [facility] [address] [place], [address] BEDSIDE GLUCOSE Collected: 11/20/2017 Status: F Source: [place] 8:41 PM [facility] REPOSITORY TYPE CODE TESTS RESULT OUT OF REFERENCE UNITS RANGE LAB L501.080 70-110 mg/dL High BEDSIDE GLU 153 Result Comment: MANAGEMENT OF PATIENT CARE PER NURSING PROTOCOL Performed By: #### L501.080 #### [facility] Point of Care [address] [place] [address] BEDSIDE GLUCOSE Collected: 11/20/2017 Status: F Source: [place] 4:45 PM [facility] REPOSITORY TYPE CODE TESTS RESULT OUT OF REFERENCE UNITS RANGE LAB L501.080 70-110 mg/dL High BEDSIDE GLU 117 Result Comment: MANAGEMENT OF PATIENT CARE PER NURSING PROTOCOL Performed By: #### L501.080 #### [facility] Point [facility] Care [address] [place] [address] BEDSIDE GLUCOSE Collected: 11/20/2017 Status: F Source: [place] 10:59 AM [facility] REPOSITORY TYPE CODE TESTS RESULT OUT OF REFERENCE UNITS RANGE LAB L501.080 70-110 mg/dL High BEDSIDE GLU 139 Result Comment: MANAGEMENT OF PATIENT CARE PER NURSING PROTOCOL Performed By: #### L501.080 #### [facility] Point [facility] Care [address] [place] [address] BEDSIDE GLUCOSE Collected: 11/20/2017 Status: F Source: [place] 6:48 AM [facility] REPOSITORY TYPE CODE TESTS RESULT OUT OF REFERENCE UNITS RANGE LAB L501.080 70-110 mg/dL High BEDSIDE GLU 120 Result Comment: MANAGEMENT OF PATIENT CARE PER NURSING PROTOCOL Performed By: #### L501.080 #### [facility] Point [facility] [address] [place] [address] BEDSIDE GLUCOSE Collected: 11/19/2017 Status: F Source: [place] 8:52 PM [facility] REPOSITORY TYPE CODE TESTS RESULT OUT OF REFERENCE UNITS RANGE LAB L501.080 70-110 mg/dL High BEDSIDE GLU 175 Result Comment: MANAGEMENT OF PATIENT CARE PER NURSING PROTOCOL Performed By: #### L501.080 #### [facility] Point [facility] Care [address] [place] [address] BEDSIDE GLUCOSE Collected: 11/19/2017 Status: F Source: [place] 4:56 PM [facility] REPOSITORY TYPE CODE TESTS RESULT OUT OF REFERENCE UNITS RANGE LAB L501.080 70-110 mg/dL High BEDSIDE GLU 117 Result Comment: MANAGEMENT OF PATIENT CARE PER NURSING PROTOCOL Performed By: #### L501.080 #### [facility] Point [facility] Care [address] [place] [address] BEDSIDE GLUCOSE Collected: 11/19/2017 Status: F Source: [place] 11:20 AM [facility] REPOSITORY TYPE CODE TESTS RESULT OUT OF REFERENCE UNITS RANGE LAB L501.080 70-110 mg/dL High BEDSIDE GLU 172 Result Comment: MANAGEMENT OF PATIENT CARE PER NURSING PROTOCOL Performed By: #### L501.080 #### [facility] Point [facility] Care [address] [place] [address] BEDSIDE GLUCOSE Collected: 11/19/2017 Status: F Source: [place] 6:42 AM [facility] REPOSITORY TYPE CODE TESTS RESULT OUT OF REFERENCE UNITS RANGE LAB L501.080 70-110 mg/dL High BEDSIDE GLU 124 Result Comment: MANAGEMENT OF PATIENT CARE PER NURSING PROTOCOL Performed By: #### L501.080 #### [facility] Point [facility] Care [address] [place] [address] BEDSIDE GLUCOSE Collected: 11/18/2017 Status: F Source: [place] 8:59 PM [facility] REPOSITORY TYPE CODE TESTS RESULT OUT OF REFERENCE UNITS RANGE LAB L501.080 70-110 mg/dL High BEDSIDE GLU 170 Result Comment: Dr Ramos Followed MANAGEMENT OF PATIENT CARE PER NURSING PROTOCOL Performed By: #### L501.080 #### [facility] Point [facility] [address] [place] [address] BEDSIDE GLUCOSE Collected: 11/18/2017 Status: F Source: [place] 4:49 PM [facility] REPOSITORY TYPE CODE TESTS RESULT OUT OF REFERENCE UNITS RANGE LAB L501.080 70-110 mg/dL High BEDSIDE GLU 124 Result Comment: MANAGEMENT OF PATIENT CARE PER NURSING PROTOCOL Performed By: #### L501.080 #### [facility] Point [facility] [address] [place] [address] BEDSIDE GLUCOSE Collected: 11/18/2017 Status: F Source: [place] 11:29 AM [facility] REPOSITORY TYPE CODE TESTS RESULT OUT OF REFERENCE UNITS RANGE LAB L501.080 70-110 mg/dL High BEDSIDE GLU 140 Result Comment: Dr Orders Followed MANAGEMENT OF PATIENT CARE PER NURSING PROTOCOL Performed By: #### L501.080 #### [facility] [address] [place] [address] BEDSIDE GLUCOSE Collected: 11/18/2017 Status: F Source: [place] 6:49 AM [facility] REPOSITORY TYPE CODE TESTS RESULT OUT OF REFERENCE UNITS RANGE LAB L501.080 70-110 mg/dL High BEDSIDE GLU 116 Result Comment: MANAGEMENT OF PATIENT CARE PER NURSING PROTOCOL Performed By: #### L501.080 #### [facility] [address] [place] [address] BEDSIDE GLUCOSE Collected: 11/17/2017 Status: F Source: [place] 8:55 PM [facility] REPOSITORY TYPE CODE TESTS RESULT OUT OF REFERENCE UNITS RANGE LAB L501.080 70-110 mg/dL High BEDSIDE GLU 150 Result Comment: MANAGEMENT OF PATIENT CARE PER NURSING PROTOCOL Performed By: #### L501.080 #### [facility] [address] [place] [address] BEDSIDE GLUCOSE Collected: 11/17/2017 Status: F Source: [place] 4:55 PM [facility] REPOSITORY TYPE CODE TESTS RESULT OUT OF REFERENCE UNITS RANGE LAB L501.080 70-110 mg/dL High BEDSIDE GLU 139 Result Comment: MANAGEMENT OF PATIENT CARE PER NURSING PROTOCOL Performed By: #### L501.080 #### [facility] [address] [place] [address] BEDSIDE GLUCOSE Collected: 11/17/2017 Status: F Source: [place] 11:15 AM [facility] REPOSITORY TYPE CODE TESTS RESULT OUT OF REFERENCE UNITS RANGE LAB L501.080 70-110 mg/dL High BEDSIDE GLU 144 Result Comment: MANAGEMENT OF PATIENT CARE PER NURSING PROTOCOL Performed By: #### L501.080 #### [facility] [address] [place] [address] BEDSIDE GLUCOSE Collected: 11/16/2017 Status: F Source: [place] 7:00 AM [facility] REPOSITORY Order Comment: RESULT(S) PREVIOUSLY REPORTED ON MANUAL REQUISITION DURING DOWNTIME. TYPE CODE TESTS RESULT OUT OF RANGE REFERENCE UNITS LAB L501.080 70-110 mg/dL Normal BEDSIDE GLU 106 Result Comment: MANAGEMENT OF PATIENT CARE PER NURSING PROTOCOL Performed By: #### L501.080 #### [facility] Point of Care [address] [place] [address] BEDSIDE GLUCOSE Collected: 11/15/2017 Status: F Source: YOLANDA 8:57 PM [facility] REPOSITORY Order Comment: RESULT(S) PREVIOUSLY REPORTED ON MANUAL REQUISITION DURING DOWNTIME. TYPE CODE TESTS RESULT OUT OF REFERENCE UNITS RANGE LAB L501.080 70-110 mg/dL High BEDSIDE GLU 154 Result Comment: MANAGEMENT OF PATIENT CARE PER NURSING PROTOCOL Performed By: #### L501.080 #### [facility] Point of Care [address] [place] [address] BEDSIDE GLUCOSE Collected: 11/15/2017 Status: F Source: YOLANDA 4:44 PM [facility] REPOSITORY Order Comment: RESULT(S) PREVIOUSLY REPORTED ON MANUAL REQUISITION DURING DOWNTIME. TYPE CODE TESTS RESULT OUT OF REFERENCE UNITS RANGE LAB L501.080 70-110 mg/dL High BEDSIDE GLU 114 Result Comment: MANAGEMENT OF PATIENT CARE PER NURSING PROTOCOL Performed By: #### L501.080 #### [facility] Point of Care [address] [place] [address] BEDSIDE GLUCOSE Collected: 11/15/2017 Status: F Source: YOLANDA 11:50 AM [facility] REPOSITORY Order Comment: RESULT(S) PREVIOUSLY REPORTED ON MANUAL REQUISITION DURING DOWNTIME. TYPE CODE TESTS RESULT OUT OF REFERENCE UNITS RANGE LAB L501.080 70-110 mg/dL High BEDSIDE GLU 152 Result Comment: MANAGEMENT OF PATIENT CARE PER NURSING PROTOCOL Performed By: #### L501.080 #### [facility] Point of Care [address] [place], [place] [address] BASIC METABOLIC Collected: 11/15/2017 Status: F Source: YOLANDA PROFILE (BMP) 6:46 AM [facility] REPOSITORY Order Comment: RESULT(S) PREVIOUSLY REPORTED ON MANUAL REQUISITION DURING DOWNTIME. TYPE CODE TESTS RESULT OUT OF RANGE REFERENCE UNITS LAB L501.0100 74-106 mg/dL High GLU 116 Result Comment: Fasting Glucose result from 100 to 125 mg/dL suggests IMPAIRED HOMEOSTASIS per A.D.A. criteria. Please note revised GLUCOSE reference range effective 2017. LAB L501.1000 7-18 mg/dL Normal BUN 11 LAB L501.1100 0.55-1.02 mg/dL Normal CREAT,SERUM 0.87 Result Comment: The validity of the calculated GFR AND GFRAA in patients over 70 years has not been determined. Clinical correlation is essential. LAB L501.1110 >60 mL/min Normal EST GFR 73 LAB L501.1115 >60 mL/min Normal EST GFR - AA 88 LAB L501.1300 10-20 RATIO Normal BUN/CRE 12.6 LAB L501.2200 8.5-10.1 mg/dL Low CA 8.3 LAB L501.5300 136-145 mmol/L Normal NA 144 LAB L501.5600 3.5-5.1 mmol/L Normal K 3.5 LAB L501.5900 98-107 mmol/L High CL 109 LAB L501.6100 21.0-32.0 mmol/L Normal CO2 27.0 LAB L501.6200 5-15 Normal GAP 8 Performed By: #### L500.2500 #### [facility] [address] [place], [place], [address] BEDSIDE GLUCOSE Collected: 11/15/2017 Status: F Source: YOLANDA 6:37 AM [facility] REPOSITORY Order Comment: RESULT(S) PREVIOUSLY REPORTED ON MANUAL REQUISITION DURING DOWNTIME. TYPE CODE TESTS RESULT OUT OF REFERENCE UNITS RANGE LAB L501.080 70-110 mg/dL High BEDSIDE GLU 122 Result Comment: MANAGEMENT OF PATIENT CARE PER NURSING PROTOCOL Performed By: #### L501.080 #### [facility] Point [place] [address] CBC W/DIFF, AUTOMATED Collected: 11/15/2017 Status: F Source: YOLANDA 12:00 AM [facility] REPOSITORY Order Comment: RESULT(S) PREVIOUSLY REPORTED ON MANUAL REQUISITION DURING DOWNTIME. TYPE CODE TESTS RESULT OUT OF RANGE REFERENCE UNITS LAB L100.1000 4.4-11.0 K/mm3 Normal WBC 6.2 LAB L100.1200 4.2-5.4 M/mm3 Low RBC 3.00 LAB L100.1300 12.0-15.0 g/dl Low HGB 8.1 LAB L100.1400 37-47 % Low HCT 27.4 LAB L100.1500 81-99 fL Normal MCV 91.3 LAB L100.1600 27.0-32.0 pg Normal MCH 27.0 LAB L100.1700 32-36 g/gl Low MCHC 29.6 LAB L100.1810 11.6-14.6 % High RDW CV 1634.0 LAB L100.1820 35.1-43.9 fl High RDW SD 54.5 LAB L100.1900 150-450 K/mm3 Normal PLT 169 LAB L100.2000 6.2-12.0 fl Normal MPV 8.7 LAB L100.2100 47-70 % High NEUT% 77.7 LAB L100.2200 19-41 % Low LY% 10.7 LAB L100.2300 0-10 % Normal MONO% 6.8 LAB L100.2400 0-5 % Normal EO% 4.0 LAB L100.2500 0-1 % Normal BASO% 0.2 LAB L100.2550 0.0-0.9 % Normal IM GRAN % 0.600 Result Comment: IG% - Immature Granulocytes (promyelocytes, myelocytes and metamyelocytes) > 1% indicates that a LEFT SHIFT is Present. LAB L100.2620 2.0-7.7 X10 3/uL Normal Absolute Neut 4.8 LAB L100.2720 0.83-4.51 X10 3/ul Low Absolute Lymph 0.66 Performed By: #### L100.0100 #### [facility] [address] [place], [place], [address] BEDSIDE GLUCOSE Collected: 11/14/2017 Status: F Source: YOLANDA 11:55 AM [facility] REPOSITORY Order Comment: RESULT(S) PREVIOUSLY REPORTED ON MANUAL REQUISITION DURING DOWNTIME. TYPE CODE TESTS RESULT OUT OF REFERENCE UNITS RANGE LAB L501.080 70-110 mg/dL High BEDSIDE GLU 148 Result Comment: MANAGEMENT OF PATIENT CARE PER NURSING PROTOCOL Performed By: #### L501.080 #### [facility] Point of Care [address] [facility] [place] [address] BEDSIDE GLUCOSE Collected: 11/14/2017 Status: F Source: YOLANDA 9:00 AM [facility] REPOSITORY Order Comment: RESULT(S) PREVIOUSLY REPORTED ON MANUAL REQUISITION DURING DOWNTIME. TYPE CODE TESTS RESULT OUT OF REFERENCE UNITS RANGE LAB L501.080 70-110 mg/dL High BEDSIDE GLU 112 Result Comment: MANAGEMENT OF PATIENT CARE PER NURSING PROTOCOL Performed By: #### L501.080 #### [facility] Point of Care [address] [facility] [place], [place] [address] BEDSIDE GLUCOSE Collected: 11/14/2017 Status: F Source: YOLANDA 6:42 AM [facility] REPOSITORY Order Comment: RESULT(S) PREVIOUSLY REPORTED ON MANUAL REQUISITION DURING DOWNTIME. TYPE CODE TESTS RESULT OUT OF REFERENCE UNITS RANGE LAB L501.080 70-110 mg/dL High BEDSIDE GLU 112 Result Comment: MANAGEMENT OF PATIENT CARE PER NURSING PROTOCOL Performed By: #### L501.080 #### [facility] Point of [facility] [address] [facility] [place] [address] VANCOMYCIN, RANDOM Collected: 11/14/2017 Status: F Source: YOLANDA LEVEL 5:15 AM [facility] REPOSITORY Order Comment: RESULT(S) PREVIOUSLY REPORTED ON MANUAL REQUISITION DURING DOWNTIME. TYPE CODE TESTS RESULT OUT OF REFERENCE UNITS RANGE LAB L501.8850 0.0-15.0 ug/mL High VANCO, RANDOM 18.7 Result Comment: VANCOMYCIN STANDARD DRUG THERAPY: CRITICAL VALUE IS > 15.0 mg/L VANCOMYCIN HIGH INTENSITY THERAPY: CRITICAL VALUE IS > 20.0 mg/L PLEASE CONTACT PHARMACY SERVICES (#[id number]) FOR INTERPRETATION OF RESULTS. THIS RESULT DOES NOT REPRESENT A PEAK OR TROUGH LEVEL FOR THIS DRUG. Performed By: #### L501.8850 #### [facility] [address] [place], [address] VANCOMYCIN, RANDOM Collected: 11/14/2017 Status: F Source: YOLANDA LEVEL 5:15 AM [facility] REPOSITORY Order Comment: RESULT(S) PREVIOUSLY REPORTED ON MANUAL REQUISITION DURING DOWNTIME. ORDERED FROM DOWNTIME REQUISITION TYPE CODE TESTS RESULT OUT OF REFERENCE UNITS RANGE LAB L501.8850 0.0-15.0 ug/mL High VANCO, RANDOM 18.7 Result Comment: VANCOMYCIN STANDARD DRUG THERAPY: CRITICAL VALUE IS > 15.0 mg/L VANCOMYCIN HIGH INTENSITY THERAPY: CRITICAL VALUE IS > 20.0 mg/L PLEASE CONTACT PHARMACY SERVICES (#[id number]) FOR INTERPRETATION OF RESULTS. THIS RESULT DOES NOT REPRESENT A PEAK OR TROUGH LEVEL FOR THIS DRUG. Performed By: #### L501.8850 #### [facility] [address] [place], [place], [address] BASIC METABOLIC Collected: 11/14/2017 Status: F Source: YOLANDA PROFILE (BMP) 5:15 AM [facility] REPOSITORY Order Comment: RESULT(S) PREVIOUSLY REPORTED ON MANUAL REQUISITION DURING DOWNTIME. ORDERED FROM DOWNTIME REQUISITION TYPE CODE TESTS RESULT OUT OF RANGE REFERENCE UNITS LAB L501.0100 74-106 mg/dL High GLU 107 Result Comment: Fasting Glucose result from 100 to 125 mg/dL suggests IMPAIRED HOMEOSTASIS per A.D.A. criteria. Please note revised GLUCOSE reference range effective 2017. LAB L501.1000 7-18 mg/dL Normal BUN 15 LAB L501.1100 0.55-1.02 mg/dL Normal CREAT,SERUM 0.87 Result Comment: The validity of the calculated GFR AND GFRAA in patients over 70 years has not been determined. Clinical correlation is essential. LAB L501.1110 >60 mL/min Normal EST GFR 73 LAB L501.1115 >60 mL/min Normal EST GFR - AA 88 LAB L501.1300 10-20 RATIO Normal BUN/CRE 17.2 LAB L501.2200 8.5-10.1 mg/dL Low CA 7.8 LAB L501.5300 136-145 mmol/L Normal NA 142 LAB L501.5600 3.5-5.1 mmol/L Normal K 3.5 LAB L501.5900 98-107 mmol/L High CL 111 LAB L501.6100 21.0-32.0 mmol/L Normal CO2 24.0 LAB L501.6200 5-15 Normal GAP 7 Performed By: #### L500.2500, L501.5200 #### [facility] [address] [place], [address] MAGNESIUM Collected: 11/14/2017 Status: F Source: YOLANDA 5:15 AM [facility] REPOSITORY Order Comment: RESULT(S) PREVIOUSLY REPORTED ON MANUAL REQUISITION DURING DOWNTIME. ORDERED FROM DOWNTIME REQUISITION TYPE CODE TESTS RESULT OUT OF RANGE REFERENCE UNITS LAB L501.5200 1.6-2.6 mg/dL Normal MG 1.8 Performed By: #### L500.2500, L501.5200 #### [facility] [address] [facility] [place], [address] CBC-COMPLETE BLOOD CNT Collected: 11/14/2017 Status: F Source: YOLANDA NO DIFF 12:00 AM [facility] REPOSITORY Order Comment: RESULT(S) PREVIOUSLY REPORTED ON MANUAL REQUISITION DURING DOWNTIME. TYPE CODE TESTS RESULT OUT OF RANGE REFERENCE UNITS LAB L100.1000 4.4-11.0 K/mm3 Normal WBC 6.8 LAB L100.1200 4.2-5.4 M/mm3 Low RBC 3.09 LAB L100.1300 12.0-15.0 g/dl Low HGB 8.4 LAB L100.1400 37-47 % Low HCT 28.1 LAB L100.1500 81-99 fL Normal MCV 90.9 LAB L100.1600 27.0-32.0 pg Normal MCH 27.2 LAB L100.1700 32-36 g/gl Low MCHC 29.9 LAB L100.1810 11.6-14.6 % High RDW CV 16.4 LAB L100.1820 35.1-43.9 fl High RDW SD 54.3 LAB L100.1900 150-450 K/mm3 Normal PLT 187 LAB L100.2000 6.2-12.0 fl Normal MPV 10.1 Performed By: #### L100.0500 #### [facility] [address] [place], [address] BEDSIDE GLUCOSE Collected: 11/13/2017 Status: F Source: CELINA 9:13 PM [facility] REPOSITORY Order Comment: RESULT(S) PREVIOUSLY REPORTED ON MANUAL REQUISITION DURING DOWNTIME. TYPE CODE TESTS RESULT OUT OF REFERENCE UNITS RANGE LAB L501.080 70-110 mg/dL High BEDSIDE GLU 146 Result Comment: MANAGEMENT OF PATIENT CARE PER NURSING PROTOCOL Performed By: #### L501.080 #### [facility] Point of Care [address] [place] [address] CHEST WITH CONTRAST Observed: 11/13/2017 Status: F Source: CELINA 6:08 PM [facility] REPOSITORY [facility] Imaging Services [address] [place] [address] Chest WITH Contrast MR#: [id number] Acct: [id number] Name: EMILEE BASSETT Rep #: [id number] : 1965 F 52 From: Umair Kelley MD PCP: Valeria Mace MD Status: DIS IN Study: Chest WITH Contrast Date of Exam: 11/11/17 Exam# [id number] Ordering Dr: Sebastien Smith MD STUDY: CT CHEST WITH CONTRAST REASON FOR EXAM: Female, 52 years old. Abscess evaluation RADIATION DOSAGE (If Supplied By Facility): CTDIvol = ( 23.83 ) mGy, DLP = ( 912.89 ) mGycm TECHNIQUE: Transaxial imaging was performed following intravenous administration of 100ML ml of Isovue 300 contrast material. Individualized dose optimization techniques were used for this CT. COMPARISON: November 12, 2016 FINDINGS: : TRACHEA, THYROID, ESOPHAGUS: No tracheomalacia,stricture or wall thickening. Thyroid and esophagus are normal CARDIOVASCULAR SYSTEM:The thoracic aorta is normal with no aneurysm, dissection or developmental anomalies. The pulmonary trunk and the left and right pulmonary arteries and their lobar and segmental branches do not show any abnormal and persistent filling defects in them. There is therefore no evidence of pulmonary embolism. The heart is normal. There are no venous anomalies NEGRA AND LYMPH NODES: No hilar masses and no mediastinal, hilar, axillary or supraclavicular adenopathy LUNGS, LOW-ATTENUATION: No traction bronchiectasis, honeycombing,emphysema, lung cysts or cavitations LUNGS, HIGH ATTENUATION: No nodules/masses, ground glass opacities/consolidations or increased interstitial markings LUNGS, MOSAIC/CRAZY PAVING: Not evident PLEURA AND CHEST WALL: No plural effusions, pneumothoraces,rib fractures or any osteolytic/osteoblastic changes . The soft tissue chest wall including the breasts are normal UPPER ABDOMEN: Unremarkable . CT/Chest WITH Contrast IMPRESSION: No acute findings in the lungs. No contusions or lacerations No abscess formation seen in the chest Electronically Signed: Umair Kelley, at 5:00 EDT Tel , Service support , CC: Sebastien Smith MD; Valeria Mace MD Shank Rander: Signed PELVIS WITH IV Observed: 11/13/2017 Status: F Source: CELINA CONTRAST 6:07 PM [facility] REPOSITORY [facility] Imaging Services [address] [place] [id number] Pelvis WITH IV Contrast MR#: [id number] Acct: [id number] Name: EMILEE BASSETT Rep #: [id number] : 1965 F 52 From: Umair Kelley MD PCP: Valeria Mace MD Status: DIS IN Study: Pelvis WITH IV Contrast Date of Exam: 11/11/17 Exam# [id number] Ordering Dr: Andrzej Tran MD STUDY: CT PELVIS WITH CONTRAST REASON FOR EXAM: Female, 52 years old. Evaluation of the left thigh abscess RADIATION DOSAGE (If Supplied By Facility): CTDIvol = ( 57.40 ) mGy, DLP = ( 3922.19 ) mGycm TECHNIQUE: Transaxial imaging of the pelvis was performed without oral contrast. 100ML ml of Isovue 300 contrast was administered intravenously. Individualized dose optimization techniques were used for this CT. COMPARISON: None. FINDINGS: There is a large 16 x 7 cm area of cellulitis involving the medial aspect of the left upper thigh with a 5 cm area of pockets of gas located centrally and consistent with an abscess. There is no violation of the deep fascia of the thigh and no neurovascular bundle involvement. A similar finding is seen in the inner aspect of the right thigh but more inferiorly. This is also mainly cellulitis with a 10 cm inflammatory phlegmon in its central area. CT/Pelvis WITH IV Contrast IMPRESSION: A large 16 x 7 cm area of cellulitis of the inner margin of the left upper thigh with a 5 cm area of abscess formation within its central area. A large area of cellulitis in the medial aspect of the right upper thigh with a 10 cm central area of a phlegmon. The right thigh findings are slightly more inferior to the left thigh finding Electronically Signed: Umair Kelley, at 6:27 EDT Tel , Service support , CC: Andrzej Tran MD; Valeria Mace MD Shank Rander: Signed EXTREMITY LOWER WITH Observed: 11/13/2017 Status: F Source: YOLANDA CONTRAST 6:07 PM [facility] REPOSITORY [facility] Imaging Services [address] [place] [address] Extremity Lower WITH Contrast MR#: [id number] Acct: [id number] Name: EMILEE BASSETT Rep #: [id number] : 1965 F 52 From: Umair Kelley MD PCP: Valeria Mace MD Status: DIS IN Study: Extremity Lower WITH Contrast Date of Exam: 11/11/17 Exam# [id number] Ordering Dr: Andrzej Tran MD STUDY: CT PELVIS WITH CONTRAST REASON FOR EXAM: Female, 52 years old. Evaluation of the left thigh abscess RADIATION DOSAGE (If Supplied By Facility): CTDIvol = ( 57.40 ) mGy, DLP = ( 3922.19 ) mGycm TECHNIQUE: Transaxial imaging of the pelvis was performed without oral contrast. 100ML ml of Isovue 300 contrast was administered intravenously. Individualized dose optimization techniques were used for this CT. COMPARISON: None. FINDINGS: There is a large 16 x 7 cm area of cellulitis involving the medial aspect of the left upper thigh with a 5 cm area of pockets of gas located centrally and consistent with an abscess. There is no violation of the deep fascia of the thigh and no neurovascular bundle involvement. A similar finding is seen in the inner aspect of the right thigh but more inferiorly. This is also mainly cellulitis with a 10 cm inflammatory phlegmon in its central area. CT/Extremity Lower WITH Contrast IMPRESSION: A large 16 x 7 cm area of cellulitis of the inner margin of the left upper thigh with a 5 cm area of abscess formation within its central area. A large area of cellulitis in the medial aspect of the right upper thigh with a 10 cm central area of a phlegmon. The right thigh findings are slightly more inferior to the left thigh finding Electronically Signed: Umair Kelley, at 6:27 EDT Tel , Service support , CC: Andrzej Tran MD; Valeria Mace MD Shank Rander: Signed BEDSIDE GLUCOSE Collected: 11/13/2017 Status: F Source: YOLANDA 4:50 PM [facility] REPOSITORY Order Comment: RESULT(S) PREVIOUSLY REPORTED ON MANUAL REQUISITION DURING DOWNTIME. TYPE CODE TESTS RESULT OUT OF REFERENCE UNITS RANGE LAB L501.080 70-110 mg/dL High BEDSIDE GLU 114 Result Comment: MANAGEMENT OF PATIENT CARE PER NURSING PROTOCOL Performed By: #### L501.080 #### [facility] Point of Care [address] [place] [address] CHEST PA AND LATERAL Observed: 11/13/2017 Status: F Source: CELINA 2:02 PM [facility] REPOSITORY [facility] Imaging Services [address] [place] [address] Chest PA and Lateral MR#: [id number] Acct: [id number] Name: EMILEE BASSETT Rep #: [id number] : 1965 F 52 From: Guy Reynolds MD PCP: Valeria Mace MD Status: DIS IN Study: Chest PA and Lateral Date of Exam: 11/10/17 Exam# [id number] Ordering Dr: Garland Villar MD STUDY: X-RAY CHEST REASON FOR EXAM: Female, 52 years old. CHF. Shortness of breath. Recent pneumonia. TECHNIQUE: Frontal and lateral views of the chest. COMPARISON: October 08, 2017 FINDINGS: There is hyperinflation of the lungs consistent with chronic obstructive lung disease (COPD). There is no demonstrated pleural abnormality. Normal size heart. Normal mediastinum and negra. Normal visualized pulmonary arteries. Normal visualized aortic arch and descending thoracic aorta. There is straightening of the normal kyphosis of the thoracic spine. Normal visualized ribs, clavicles, and shoulders. There is no demonstrated abnormality of the visualized soft tissue structures of the upper abdomen. RAD/Chest PA and Lateral IMPRESSION: Degenerative changes, as described above. No demonstrated acute cardiopulmonary process. Electronically Signed: Guy Reynolds MD at 17:52 EDT , Service support , CC: Valeria Mace MD; Garland Villar MD Shank Rander: Signed BEDSIDE GLUCOSE Collected: 11/13/2017 Status: F Source: YOLANDA 11:55 AM [facility] REPOSITORY Order Comment: RESULT(S) PREVIOUSLY REPORTED ON MANUAL REQUISITION DURING DOWNTIME. TYPE CODE TESTS RESULT OUT OF REFERENCE UNITS RANGE LAB L501.080 70-110 mg/dL High BEDSIDE GLU 161 Result Comment: MANAGEMENT OF PATIENT CARE PER NURSING PROTOCOL Performed By: #### L501.080 #### [facility] Point of Care [address] [place] [address] BASIC METABOLIC Collected: 11/13/2017 Status: F Source: YOLANDA PROFILE (BMP) 8:34 AM [facility] REPOSITORY Order Comment: RESULT(S) PREVIOUSLY REPORTED ON MANUAL REQUISITION DURING DOWNTIME. TYPE CODE TESTS RESULT OUT OF RANGE REFERENCE UNITS LAB L501.0100 74-106 mg/dL High GLU 110 Result Comment: Fasting Glucose result from 100 to 125 mg/dL suggests IMPAIRED HOMEOSTASIS per A.D.A. criteria. Please note revised GLUCOSE reference range effective 2017. LAB L501.1000 7-18 mg/dL High BUN 23 LAB L501.1100 0.55-1.02 mg/dL Normal CREAT,SERUM 0.96 Result Comment: The validity of the calculated GFR AND GFRAA in patients over 70 years has not been determined. Clinical correlation is essential. LAB L501.1110 >60 mL/min Normal EST GFR 65 LAB L501.1115 >60 mL/min Normal EST GFR - AA 79 LAB L501.1300 10-20 RATIO High BUN/CRE 24.0 LAB L501.2200 8.5-10.1 mg/dL Low CA 7.6 LAB L501.5300 136-145 mmol/L High NA 146 LAB L501.5600 3.5-5.1 mmol/L Normal K 4.0 LAB L501.5900 98-107 mmol/L High CL 114 LAB L501.6100 21.0-32.0 mmol/L Normal CO2 24.0 LAB L501.6200 5-15 Normal GAP 8 Performed By: #### L500.2500 #### [facility] [address] [place], [address] VANCOMYCIN, RANDOM Collected: 11/13/2017 Status: F Source: YOLANDA LEVEL 8:34 AM [facility] REPOSITORY Order Comment: RESULT(S) PREVIOUSLY REPORTED ON MANUAL REQUISITION DURING DOWNTIME. TYPE CODE TESTS RESULT OUT OF REFERENCE UNITS RANGE LAB L501.8850 0.0-15.0 ug/mL High VANCO, RANDOM 32.8 Result Comment: VANCOMYCIN STANDARD DRUG THERAPY: CRITICAL VALUE IS > 15.0 mg/L VANCOMYCIN HIGH INTENSITY THERAPY: CRITICAL VALUE IS > 20.0 mg/L PLEASE CONTACT PHARMACY SERVICES (#[id number]) FOR INTERPRETATION OF RESULTS. THIS RESULT DOES NOT REPRESENT A PEAK OR TROUGH LEVEL FOR THIS DRUG. Performed By: #### L501.8850 #### [facility] [address] [place], [address] BEDSIDE GLUCOSE Collected: 11/13/2017 Status: F Source: YOLANDA 7:00 AM [facility] REPOSITORY Order Comment: RESULT(S) PREVIOUSLY REPORTED ON MANUAL REQUISITION DURING DOWNTIME. TYPE CODE TESTS RESULT OUT OF REFERENCE UNITS RANGE LAB L501.080 70-110 mg/dL High BEDSIDE GLU 119 Result Comment: MANAGEMENT OF PATIENT CARE PER NURSING PROTOCOL Performed By: #### L501.080 #### [facility] Point of Care [address] [place] [address] CBC-COMPLETE BLOOD CNT Collected: 11/13/2017 Status: F Source: YOLANDA NO DIFF 5:55 AM [facility] REPOSITORY Order Comment: RESULT(S) PREVIOUSLY REPORTED ON MANUAL REQUISITION DURING DOWNTIME. TYPE CODE TESTS RESULT OUT OF RANGE REFERENCE UNITS LAB L100.1000 4.4-11.0 K/mm3 Normal WBC 7.8 LAB L100.1200 4.2-5.4 M/mm3 Low RBC 3.00 LAB L100.1300 12.0-15.0 g/dl Low HGB 8.3 LAB L100.1400 37-47 % Low HCT 27.7 LAB L100.1500 81-99 fL Normal MCV 92.3 LAB L100.1600 27.0-32.0 pg Normal MCH 27.7 LAB L100.1700 32-36 g/gl Low MCHC 30.0 LAB L100.1810 11.6-14.6 % High RDW CV 16.2 LAB L100.1820 35.1-43.9 fl High RDW SD 52.7 LAB L100.1900 150-450 K/mm3 Low PLT 148 LAB L100.2000 6.2-12.0 fl Normal MPV 9.7 Performed By: #### L100.0500 #### [facility] [address] [place], [place], [address] BASIC METABOLIC Collected: 11/13/2017 Status: F Source: YOLANDA PROFILE (BMP) 5:20 AM [facility] REPOSITORY Order Comment: RESULT(S) PREVIOUSLY REPORTED ON MANUAL REQUISITION DURING DOWNTIME. TYPE CODE TESTS RESULT OUT OF RANGE REFERENCE UNITS LAB L501.0100 74-106 mg/dL High GLU 111 Result Comment: Fasting Glucose result from 100 to 125 mg/dL suggests IMPAIRED HOMEOSTASIS per A.D.A. criteria. Please note revised GLUCOSE reference range effective 2017. LAB L501.1000 7-18 mg/dL High BUN 24 LAB L501.1100 0.55-1.02 mg/dL Normal CREAT,SERUM 1.01 Result Comment: The validity of the calculated GFR AND GFRAA in patients over 70 years has not been determined. Clinical correlation is essential. LAB L501.1110 >60 mL/min Normal EST GFR 61 LAB L501.1115 >60 mL/min Normal EST GFR - AA 74 LAB L501.1300 10-20 RATIO High BUN/CRE 23.8 LAB L501.2200 8.5-10.1 mg/dL Low CA 8.0 LAB L501.5300 136-145 mmol/L Normal NA 145 LAB L501.5600 3.5-5.1 mmol/L Normal K 3.8 LAB L501.5900 98-107 mmol/L High CL 112 LAB L501.6100 21.0-32.0 mmol/L Normal CO2 25.0 LAB L501.6200 5-15 Normal GAP 8 Performed By: #### L500.2500 #### [facility] [address] [place], [place], [address] BEDSIDE GLUCOSE Collected: 11/13/2017 Status: F Source: YOLANDA 1:11 AM [facility] REPOSITORY Order Comment: RESULT(S) PREVIOUSLY REPORTED ON MANUAL REQUISITION DURING DOWNTIME. TYPE CODE TESTS RESULT OUT OF REFERENCE UNITS RANGE LAB L501.080 70-110 mg/dL High BEDSIDE GLU 120 Result Comment: MANAGEMENT OF PATIENT CARE PER NURSING PROTOCOL Performed By: #### L501.080 #### [facility] Point of Care [address] [place], [place] [address] VANCOMYCIN, TROUGH Collected: 11/12/2017 Status: F Source: YOLANDA LEVEL 10:36 PM [facility] REPOSITORY Order Comment: RESULT(S) PREVIOUSLY REPORTED ON MANUAL REQUISITION DURING DOWNTIME. Time Medication is to be Given? 0000 TYPE CODE TESTS RESULT OUT OF REFERENCE UNITS RANGE LAB L501.8820 5.0-15.0 ug/mL High VANCO, TROUGH 33.1 Result Comment: VANCOMYCIN STANDARED DRUG THERAPY TROUGH LEVEL: 5.0 - 15.0 mg/L VANCOMYCIN HIGH INTENSITY THERAPY TROUGH LEVEL: 15.0 - 20.0 mg/L High Intensity therapy recommended for serious life threatening infections include: - Meningitis -Endocarditis -Pneumonia (Ventilator/Healtcare Associated) -Sepsis PLEASE CONTACT PHARMACY SERVICES (#[id number]) FOR INTERPRETATION OF RESULTS. Performed By: #### L501.8820 #### [facility] [address] [place], [place], [address] BEDSIDE GLUCOSE Collected: 11/12/2017 Status: F Source: YOLANDA 4:55 PM [facility] REPOSITORY Order Comment: RESULT(S) PREVIOUSLY REPORTED ON MANUAL REQUISITION DURING DOWNTIME. TYPE CODE TESTS RESULT OUT OF REFERENCE UNITS RANGE LAB L501.080 70-110 mg/dL High BEDSIDE GLU 135 Result Comment: MANAGEMENT OF PATIENT CARE PER NURSING PROTOCOL Performed By: #### L501.080 #### [facility] Point of Care [address] [place], [place] [address] CBC-COMPLETE BLOOD CNT Collected: 11/12/2017 Status: F Source: YOLANDA NO DIFF 4:40 PM [facility] REPOSITORY Order Comment: RESULT(S) PREVIOUSLY REPORTED ON MANUAL REQUISITION DURING DOWNTIME. TYPE CODE TESTS RESULT OUT OF RANGE REFERENCE UNITS LAB L100.1000 4.4-11.0 K/mm3 Normal WBC 7.8 LAB L100.1200 4.2-5.4 M/mm3 Low RBC 2.61 LAB L100.1300 12.0-15.0 g/dl Low HGB 7.0 LAB L100.1400 37-47 % Low HCT 23.0 LAB L100.1500 81-99 fL Normal MCV 88.1 LAB L100.1600 27.0-32.0 pg Low MCH 26.8 LAB L100.1700 32-36 g/gl Low MCHC 30.4 LAB L100.1810 11.6-14.6 % High RDW CV 16.9 LAB L100.1820 35.1-43.9 fl High RDW SD 55.0 LAB L100.1900 150-450 K/mm3 Low PLT 119 LAB L100.2000 6.2-12.0 fl Normal MPV 8.6 Performed By: #### L100.0500 #### [facility] [address] [facility] [place], [address] BEDSIDE GLUCOSE Collected: 11/12/2017 Status: F Source: YOLANDA 11:28 AM [facility] REPOSITORY Order Comment: RESULT(S) PREVIOUSLY REPORTED ON MANUAL REQUISITION DURING DOWNTIME. TYPE CODE TESTS RESULT OUT OF REFERENCE UNITS RANGE LAB L501.080 70-110 mg/dL High BEDSIDE GLU 123 Result Comment: MANAGEMENT OF PATIENT CARE PER NURSING PROTOCOL Performed By: #### L501.080 #### [facility] Point of Care [address] [place] [address] BEDSIDE GLUCOSE Collected: 11/12/2017 Status: F Source: CELINA 6:45 AM [facility] REPOSITORY Order Comment: RESULT(S) PREVIOUSLY REPORTED ON MANUAL REQUISITION DURING DOWNTIME. TYPE CODE TESTS RESULT OUT OF RANGE REFERENCE UNITS LAB L501.080 70-110 mg/dL Normal BEDSIDE GLU 100 Result Comment: MANAGEMENT OF PATIENT CARE PER NURSING PROTOCOL Performed By: #### L501.080 #### [facility] Point of Care [address] [place] [address] VANCOMYCIN, TROUGH Collected: 11/12/2017 Status: F Source: YOLANDA LEVEL 6:30 AM [facility] REPOSITORY Order Comment: RESULT(S) PREVIOUSLY REPORTED ON MANUAL REQUISITION DURING DOWNTIME. Time Medication is to be Given? 0000 TYPE CODE TESTS RESULT OUT OF REFERENCE UNITS RANGE LAB L501.8820 5.0-15.0 ug/mL High VANCO, TROUGH 52.6 Result Comment: VANCOMYCIN STANDARED DRUG THERAPY TROUGH LEVEL: 5.0 - 15.0 mg/L VANCOMYCIN HIGH INTENSITY THERAPY TROUGH LEVEL: 15.0 - 20.0 mg/L High Intensity therapy recommended for serious life threatening infections include: - Meningitis -Endocarditis -Pneumonia (Ventilator/Healtcare Associated) -Sepsis PLEASE CONTACT PHARMACY SERVICES (#[id number]) FOR INTERPRETATION OF RESULTS. Performed By: #### L501.8820 #### [facility] [address] [place], [address] ULCER Observed: 11/12/2017 Status: F Source: CELINA 12:00 AM [facility] REPOSITORY Patient: EMILEE BASSETT : 1965 (52/F) Acct Num: [id number] Phys: Dagoberto Castro MD Unit Num: [id number] Loc: U [id number] Specimen: [id number] Received: 11/12/17 - 7 Spec Type: ULCER TISSUES TISSUES: ULCER GROSS DESCRIPTION Received in fixative is one container labeled with the patient's name and designated debrided tissue left thigh. The specimen consists of a piece of skin with underlying tissue measuring 17 x 17 x 3 cm. No skin lesion is identified. Sections do not reveal any mass lesion. Pump Press Operator sections are submitted in three cassettes. / EVARISTO:jim 11/12/17 More sections are submitted in three cassettes, 4-6. / EVARISTO:jim 11/13/17 TC:1 CPT: 76097, 83835 x2 HEADER OPERATION: Surgical preparation left medial thigh with incision and drainage and excisional debridement diabetic abscess PRE-OP DIAGNOSIS: Diabetic ulcer left thigh TISSUE SUBMITTED: Debrided tissue left thigh MICROSCOPIC DESCRIPTION Slides are reviewed. MICROSCOPIC DIAGNOSIS Debrided tissue left thigh: Acute inflammation and abscess formation. Intradermal nevus. Special stains for acid fast bacilli and fungi are negative for organisms; matched controls are appropriate. EVARISTO:jim 11/14/17 Signed Kike Hua 11/17/17 <signature on file> Performed By: #### PUL #### [facility] [address] [facility] [place], [address] BEDSIDE GLUCOSE Collected: 11/11/2017 Status: F Source: CELINA 10:25 PM [facility] REPOSITORY Order Comment: RESULT(S) PREVIOUSLY REPORTED ON MANUAL REQUISITION DURING DOWNTIME. TYPE CODE TESTS RESULT OUT OF REFERENCE UNITS RANGE LAB L501.080 70-110 mg/dL High BEDSIDE GLU 121 Result Comment: MANAGEMENT OF PATIENT CARE PER NURSING PROTOCOL Performed By: #### L501.080 #### [facility] Point of Care [address] [facility] [place], [place] [address] TYPE AND SCREEN Collected: 11/11/2017 Status: F Source: CELINA 8:53 PM [facility] REPOSITORY Order Comment: RESULT(S) PREVIOUSLY REPORTED ON MANUAL REQUISITION DURING DOWNTIME. CMV NEG?* N Give When? STAT Irradiated? N Leukodepleted? Y Reason for Type AND Screen/Red Cells: ANEMIA TYPE CODE TESTS RESULT OUT OF RANGE REFERENCE UNITS LAB B10.0800 O Normal BLOOD TYPE GEL NEGATIVE LAB B100.4000 Normal Antibody NEGATIVE Screen Performed By: #### B101.7450 #### [facility] [address] [facility] [place], [place], [address] RC Collected: 11/11/2017 Status: F Source: CELINA 8:53 PM [facility] REPOSITORY TYPE CODE TESTS RESULT OUT OF REFERENCE UNITS RANGE LAB U100.0000 [id number] TRANSFUSED PRODUCT: T AND S with Crossmatch, Red Cells COUNT: 4 Performed By: #### U100.0000 #### [facility] - refer to report for specific site CBC-COMPLETE BLOOD CNT Collected: 11/11/2017 Status: F Source: YOLANDA NO DIFF 6:01 PM [facility] REPOSITORY Order Comment: RESULT(S) PREVIOUSLY REPORTED ON MANUAL REQUISITION DURING DOWNTIME. TYPE CODE TESTS RESULT OUT OF RANGE REFERENCE UNITS LAB L100.1000 4.4-11.0 K/mm3 High WBC 13.1 LAB L100.1200 4.2-5.4 M/mm3 Low RBC 2.58 LAB L100.1300 12.0-15.0 g/dl Low HGB 6.7 LAB L100.1400 37-47 % Low HCT 23.3 LAB L100.1500 81-99 fL Normal MCV 90.3 LAB L100.1600 27.0-32.0 pg Low MCH 26.0 LAB L100.1700 32-36 g/gl Low MCHC 28.8 LAB L100.1810 11.6-14.6 % High RDW CV 17.4 LAB L100.1820 35.1-43.9 fl High RDW SD 57.4 LAB L100.1900 150-450 K/mm3 Normal PLT 180 LAB L100.2000 6.2-12.0 fl Normal MPV 9.2 Performed By: #### L100.0500 #### [facility] [address] [facility] [address] [place], [place], [id number] Observed: 11/11/2017 Status: P Source: CELINA CULTURE, DEEP WOUND 6:00 PM [facility] REPOSITORY RESULT(S) PREVIOUSLY REPORTED ON MANUAL REQUISITION DURING DOWNTIME. Comments: DIABETIC ULCER LEFT THIGH Gram Stain Gram Stain 3+ Red Cell Stroma 3+ Red Blood Cells Rare White Blood Cells 3+ Gram positive cocci 2+ Gram negative rods Wound Culture ORGANISM 1: Enterococcus faecalis Amount Growth 2+ Enterococcus faecalis: REACTION Ampicillin $ <=2 S Benzylpenicillin NF 2 S Gentamicin SYN-S S Linezolid $$$$ 2 S Tigecycline $$$$ <=0.12 S Streptomycin $ SYN-S S Vancomycin $ 1 S (NF) indicates non-formulary drug at [facility]. Approval by Infectious Disease Specialist required before non-formulary drugs may be ordered and/or dispensed. * CLSI guidelines does not recommend testing of cephalosporins. This interpretation is deduced from Beta-lactam/penicillin results. Performed By: #### M100.1500 #### [facility] [address] [facility] [address] [place], [place], [id number] MRSA WOUND DNA BY Collected: 11/11/2017 Status: F Source: CELINA PCR 6:00 PM [facility] REPOSITORY Order Comment: RESULT(S) PREVIOUSLY REPORTED ON MANUAL REQUISITION DURING DOWNTIME. Specimen Source? SURGERY SAMPLE TYPE CODE TESTS RESULT OUT OF RANGE REFERENCE UNITS LAB L8200.1100 Negative Normal MRSA Negative RESULT LAB L8200.1150 Negative Normal SA RESULT NEGATIVE Performed By: #### L8200.1075 #### [facility] [address] [place], [address] Observed: 11/11/2017 Status: F Source: YOLANDA CULTURE, FUNGUS 8482 6:00 PM [facility] REPOSITORY RESULT(S) PREVIOUSLY REPORTED ON MANUAL REQUISITION DURING DOWNTIME. Cu,[id number] TESTING PERFORMED AT [facility]. ORIGINAL REPORT ON FILE IN LAB CONTAINS ADDITIONAL TEST SITE INFORMATION. CUF No yeast or mold isolated after 4 weeks. Performed By: #### M600.2000 #### [facility] [place] [place], [address] BEDSIDE GLUCOSE Collected: 11/11/2017 Status: F Source: YOLANDA 5:00 PM [facility] REPOSITORY Order Comment: RESULT(S) PREVIOUSLY REPORTED ON MANUAL REQUISITION DURING DOWNTIME. TYPE CODE TESTS RESULT OUT OF REFERENCE UNITS RANGE LAB L501.080 70-110 mg/dL High BEDSIDE GLU 145 Result Comment: MANAGEMENT OF PATIENT CARE PER NURSING PROTOCOL Performed By: #### L501.080 #### [facility] Point of Care [address] [facility] [place] [address] CBC-COMPLETE BLOOD CNT Collected: 11/11/2017 Status: F Source: YOLANDA NO DIFF 1:00 PM [facility] REPOSITORY Order Comment: RESULT(S) PREVIOUSLY REPORTED ON MANUAL REQUISITION DURING DOWNTIME. TYPE CODE TESTS RESULT OUT OF RANGE REFERENCE UNITS LAB L100.1000 4.4-11.0 K/mm3 Normal WBC 10.3 LAB L100.1200 4.2-5.4 M/mm3 Low RBC 2.94 LAB L100.1300 12.0-15.0 g/dl Low HGB 7.9 LAB L100.1400 37-47 % Low HCT 27.1 LAB L100.1500 81-99 fL Normal MCV 92.2 LAB L100.1600 27.0-32.0 pg Low MCH 26.9 LAB L100.1700 32-36 g/gl Low MCHC 29.2 LAB L100.1810 11.6-14.6 % High RDW CV 17.2 LAB L100.1820 35.1-43.9 fl High RDW SD 55.6 LAB L100.1900 150-450 K/mm3 Low PLT 128 LAB L100.2000 6.2-12.0 fl Normal MPV 9.1 Performed By: #### L100.0500 #### [facility] [address] [facility] [place], [place], [address] BEDSIDE GLUCOSE Collected: 11/11/2017 Status: F Source: YOLANDA 11:58 AM [facility] REPOSITORY Order Comment: RESULT(S) PREVIOUSLY REPORTED ON MANUAL REQUISITION DURING DOWNTIME. TYPE CODE TESTS RESULT OUT OF RANGE REFERENCE UNITS LAB L501.080 70-110 mg/dL Normal BEDSIDE GLU 86 Result Comment: MANAGEMENT OF PATIENT CARE PER NURSING PROTOCOL Performed By: #### L501.080 #### [facility] Point of Care [address] [facility] [place], [place] [address] BEDSIDE GLUCOSE Collected: 11/11/2017 Status: F Source: YOLANDA 6:56 AM [facility] REPOSITORY Order Comment: RESULT(S) PREVIOUSLY REPORTED ON MANUAL REQUISITION DURING DOWNTIME. TYPE CODE TESTS RESULT OUT OF RANGE REFERENCE UNITS LAB L501.080 70-110 mg/dL Normal BEDSIDE GLU 91 Result Comment: MANAGEMENT OF PATIENT CARE PER NURSING PROTOCOL Performed By: #### L501.080 #### [facility] Point of Care [address] [place] [address] CBC-COMPLETE BLOOD CNT Collected: 11/11/2017 Status: F Source: YOLANDA NO DIFF 5:00 AM [facility] REPOSITORY Order Comment: RESULT(S) PREVIOUSLY REPORTED ON MANUAL REQUISITION DURING DOWNTIME. TYPE CODE TESTS RESULT OUT OF RANGE REFERENCE UNITS LAB L100.1000 4.4-11.0 K/mm3 High WBC 11.6 LAB L100.1200 4.2-5.4 M/mm3 Low RBC 2.94 LAB L100.1300 12.0-15.0 g/dl Low HGB 7.8 LAB L100.1400 37-47 % Low HCT 27.5 LAB L100.1500 81-99 fL Normal MCV 93.5 LAB L100.1600 27.0-32.0 pg Low MCH 26.5 LAB L100.1700 32-36 g/gl Low MCHC 28.4 LAB L100.1810 11.6-14.6 % High RDW CV 17.2 LAB L100.1820 35.1-43.9 fl High RDW SD 57.0 LAB L100.1900 150-450 K/mm3 Low PLT 141 LAB L100.2000 6.2-12.0 fl Normal MPV 10.2 Performed By: #### L100.0500 #### [facility] [address] [place], [address] BASIC METABOLIC Collected: 11/11/2017 Status: F Source: CELINA PROFILE ([facility]) 12:00 AM [facility] REPOSITORY Order Comment: RESULT(S) PREVIOUSLY REPORTED ON MANUAL REQUISITION DURING DOWNTIME. TYPE CODE TESTS RESULT OUT OF RANGE REFERENCE UNITS LAB L501.0100 74-106 mg/dL Normal GLU 89 Result Comment: Please note revised GLUCOSE reference range effective 2017. LAB L501.1000 7-18 mg/dL High BUN 38 LAB L501.1100 0.55-1.02 mg/dL High CREAT,SERUM 1.14 Result Comment: The validity of the calculated GFR AND GFRAA in patients over 70 years has not been determined. Clinical correlation is essential. LAB L501.1110 >60 mL/min Low EST GFR 53 LAB L501.1115 >60 mL/min Normal EST GFR - AA 64 LAB L501.1300 10-20 RATIO High BUN/CRE 33.3 LAB L501.2200 8.5-10.1 mg/dL Low CA 7.9 LAB L501.5300 136-145 mmol/L Normal NA 141 LAB L501.5600 3.5-5.1 mmol/L Normal K 4.1 LAB L501.5900 98-107 mmol/L High CL 110 LAB L501.6100 21.0-32.0 mmol/L Normal CO2 23.0 LAB L501.6200 5-15 Normal GAP 8 Performed By: #### L500.2500 #### [facility] [address] [place], [place], [address] BASIC METABOLIC Collected: 11/11/2017 Status: F Source: YOLANDA PROFILE (BMP) 12:00 AM [facility] REPOSITORY Order Comment: RESULT(S) PREVIOUSLY REPORTED ON MANUAL REQUISITION DURING DOWNTIME. TYPE CODE TESTS RESULT OUT OF RANGE REFERENCE UNITS LAB L501.0100 74-106 mg/dL Normal GLU 87 Result Comment: Please note revised GLUCOSE reference range effective 2017. LAB L501.1000 7-18 mg/dL High BUN 39 LAB L501.1100 0.55-1.02 mg/dL High CREAT,SERUM 1.28 Result Comment: The validity of the calculated GFR AND GFRAA in patients over 70 years has not been determined. Clinical correlation is essential. LAB L501.1110 >60 mL/min Low EST GFR 47 LAB L501.1115 >60 mL/min Low EST GFR - AA 57 LAB L501.1300 10-20 RATIO High BUN/CRE 30.5 LAB L501.2200 8.5-10.1 mg/dL Low CA 7.3 LAB L501.5300 136-145 mmol/L Normal NA 140 LAB L501.5600 3.5-5.1 mmol/L Normal K 4.1 LAB L501.5900 98-107 mmol/L High CL 110 LAB L501.6100 21.0-32.0 mmol/L Normal CO2 23.0 LAB L501.6200 5-15 Normal GAP 7 Performed By: #### L500.2500 #### [facility] [address] [facility] [place], [place], [address] CBC Collected: 11/10/2017 Status: F Source: [facility] 6:06 PM [facility] REPOSITORY TYPE CODE TESTS RESULT OUT OF REFERENCE UNITS RANGE LAB WBC(LOINC) 4.60-10.80 10 3/mcL High WBC 13.90 LAB RBCCT(LOINC 4.20-5.40 10 6/mcL ) Low RBC 3.40 LAB HGB(LOINC) 12.0-16.0 G/dL Low Hgb 9.0 LAB HCT(LOINC) 37.0-47.0 % Low Hct 28.8 LAB MCV(LOINC) 80.0-94.0 fL MCV 84.6 LAB MCH(LOINC) 27.0-31.2 pg Low MCH 26.5 LAB MCHC(LOINC) 33.0-37.0 G/dL Low MCHC 31.3 LAB RDW(LOINC) 11.5-14.5 % High RDW 18.8 LAB PLT(LOINC) 130-400 10 3/mcL Platelet 181 LAB MPV(LOINC) 7.4-10.4 fL MPV 8.7 Performed By: #### CBCTRAN, ANEU #### [address] [address] .AUTO DIFF Collected: 11/10/2017 Status: F Source: [facility] 6:06 [facility] REPOSITORY TYPE CODE TESTS RESULT OUT OF REFERENCE UNITS RANGE LAB REBA(LOINC) 37.0-80.0 % High Neutrophil % 90.2 LAB LYM(LOINC) 10.0-50.0 % Low Lymphocyte % 4.0 LAB MON(LOINC) 1.7-13.0 % Monocyte % 5.0 LAB EO(LOINC) 0.0-7.0 % Eosinophil % 0.5 LAB BAS(LOINC) 0.0-2.5 % Basophil % 0.3 LAB ABLYM(LOIN 0.77-3.85 10 3/mcL C) Low Lymphocyte, 0.60 Absolute LAB HOSSEIN(LOINC 0.15-1.00 10 3/mcL ) Monocyte, 0.70 Absolute LAB AEOS(LOINC 0.00-0.40 10 3/mcL ) Eosinophil, 0.10 Absolute LAB ABAS(LOINC 0.00-0.19 10 3/mcL ) Basophil, 0.00 Absolute Performed By: #### CBC, ADCAMDEN, ANEU #### [address] [address] .NEUABS Collected: 11/10/2017 Status: F Source: [facility] 6:06 PM [facility] REPOSITORY TYPE CODE TESTS RESULT OUT OF REFERENCE UNITS RANGE LAB ANEU(LOINC) 2.85-6.16 10 3/mcL High Neutrophil, 12.50 Absolute Performed By: #### TRAN RAMIRES ANEU #### [place] [address] [place], [place] [address] Observed: 11/10/2017 Status: F Source: YOLANDA CULTURE, URINE 4:25 PM [facility] REPOSITORY Urine Culture Culture exhibits no growth. Performed By: #### M100.0650 #### [facility] [address] [place], [place], [address] Observed: 11/10/2017 Status: F Source: YOLANDA CULTURE, BLOOD (WB) 4:05 PM [facility] REPOSITORY BC No growth in 5 days. Performed By: #### M200.1000 #### [facility] [address] [place], [address] URINALYSIS, COMPLETE Collected: 11/10/2017 Status: F Source: YOLANDA 3:45 PM [facility] REPOSITORY Order Comment: RESULT(S) PREVIOUSLY REPORTED ON MANUAL REQUISITION DURING DOWNTIME. How was Urine Obtained? CLEAN CATCH TYPE CODE TESTS RESULT OUT OF RANGE REFERENCE UNITS LAB L400.3000 Yellow COLOR Normal Yellow LAB L400.3050 Clear Sl Normal CLARITY Cldy LAB L400.3200 Normal mg/dl Normal GLUCOSE, UR NEGATIVE LAB L400.3300 Negative mg/dL Normal BILIRUBIN URINE Negative LAB L400.3400 Negative mg/dl Normal KETONE UR Negative LAB L400.3465 1.002-1.030 Normal SP.GR. DIPSTX 1.015 LAB L400.3550 5.0 - 8.0 pH UR Normal 5.0 LAB L400.3600 Negative mg/dl High PROT 15 DIPSTX LAB L400.3700 Normal mg/dl Normal UROBILI Normal LAB L400.3750 Negative Normal NITRITE UR Negative LAB L400.3780 Negative /ul Normal OCCULT BLOOD-UR Negative LAB L400.3800 Negative /ul LEUK Normal ESTERASE Negative LAB L400.4050 0-5 /hpf WBC 0 Normal SEEN LAB L400.4100 0-5 /hpf 0 Normal RBC-UA SEEN LAB L400.4150 5-10 /hpf SQUAM Normal EPI 0-5 SEEN LAB L400.4300 None Seen /hpf 1+ Normal BACTERIA LAB L400.4350 <or=2+ /hpf 0 Normal MUCUS, URINE SEEN Performed By: #### L400.0001 #### [facility] [address] [facility] [address] [place], [place], [address] LACTIC ACID Collected: 11/10/2017 Status: F Source: CELINA 3:45 PM [facility] REPOSITORY Order Comment: RESULT(S) PREVIOUSLY REPORTED ON MANUAL REQUISITION DURING DOWNTIME. TYPE CODE TESTS RESULT OUT OF RANGE REFERENCE UNITS LAB L503.6005 0.4-2.0 mmol/L Normal LACTIC ACID 1.9 Performed By: #### L503.6005 #### [facility] [address] [place], [address] COMPREHENSIVE METABOLIC Collected: 11/10/2017 Status: F Source: [facility] 3:45 PM [facility] REPOSITORY Order Comment: RESULT(S) PREVIOUSLY REPORTED ON MANUAL REQUISITION DURING DOWNTIME. TYPE CODE TESTS RESULT OUT OF RANGE REFERENCE UNITS LAB L501.0100 74-106 mg/dL High GLU 123 Result Comment: Fasting Glucose result from 100 to 125 mg/dL suggests IMPAIRED HOMEOSTASIS per A.D.A. criteria. Please note revised GLUCOSE reference range effective 2017. LAB L501.1000 7-18 mg/dL High BUN 50 LAB L501.1100 0.55-1.02 mg/dL High CREAT,SERUM 1.68 Result Comment: The validity of the calculated GFR AND GFRAA in patients over 70 years has not been determined. Clinical correlation is essential. LAB L501.1110 >60 mL/min Low EST GFR 34 LAB L501.1115 >60 mL/min Low EST GFR - AA 41 LAB L501.1300 10-20 RATIO High BUN/CRE 29.8 LAB L501.1500 6.4-8.2 g/dL High T PROT 8.4 LAB L501.1800 3.2-5.0 g/dL Low ALB 2.7 LAB L501.1950 2.2-4.2 g/dL High GLOB 5.7 LAB L501.2000 0.9-2.4 RATIO Low A/G 0.5 LAB L501.2200 8.5-10.1 mg/dL Low CA 8.1 LAB L501.4100 15-37 U/L Low AST 5 LAB L501.4305 45-117 U/L Normal ALK P 92 LAB L501.4405 13-56 U/L Low ALT < 6 LAB L501.4600 0.20-1.00 mg/dL Normal T BILI 0.40 LAB L501.5300 136-145 mmol/L Normal NA 137 LAB L501.5600 3.5-5.1 mmol/L Normal K 4.2 LAB L501.5900 98-107 mmol/L Normal CL 105 LAB L501.6100 21.0-32.0 mmol/L Normal CO2 21.0 LAB L501.6200 5-15 Normal GAP 11 Performed By: #### L500.4050 #### [facility] [address] [place], [address] PROTHROMBIN TIME W/INR Collected: 11/10/2017 Status: F Source: CELINA 3:45 PM [facility] REPOSITORY Order Comment: RESULT(S) PREVIOUSLY REPORTED ON MANUAL REQUISITION DURING DOWNTIME. TYPE CODE TESTS RESULT OUT OF RANGE REFERENCE UNITS LAB L300.4150 11.7-14.9 SECONDS High PROTIME 15.4 LAB L300.4200 Normal INR 1.2 Performed By: #### L300.3900, L300.4310 #### [facility] [address] [place], [address] PARTIAL THROMBOPLAST Collected: 11/10/2017 Status: F Source: CELINA TIME 3:45 PM [facility] REPOSITORY Order Comment: RESULT(S) PREVIOUSLY REPORTED ON MANUAL REQUISITION DURING DOWNTIME. TYPE CODE TESTS RESULT OUT OF REFERENCE UNITS RANGE LAB L300.4310 24.1-36.2 Seconds High PTT 39.8 Performed By: #### L300.3900, L300.4310 #### [facility] [address] [place], [address] CBC W/DIFF, AUTOMATED Collected: 11/10/2017 Status: F Source: CELINA 3:45 PM [facility] REPOSITORY Order Comment: DR.UGALLO RESULT(S) PREVIOUSLY REPORTED ON MANUAL REQUISITION DURING DOWNTIME. TESTING PERFORMED AT [facility] TYPE CODE TESTS RESULT OUT OF RANGE REFERENCE UNITS LAB L100.1000 4.4-11.0 K/mm3 High 13.9 WBC LAB L100.1200 4.2-5.4 M/mm3 Low 3.40 RBC LAB L100.1300 12.0-15.0 g/dl Low 9.0 HGB LAB L100.1400 37-47 % Low 28.8 HCT LAB L100.1500 81-99 fL 84.6 Normal MCV LAB L100.1600 27.0-32.0 pg Low 26.5 MCH LAB L100.1700 32-36 g/gl Low 31.3 MCHC LAB L100.1810 11.6-14.6 % High 18.8 RDW CV LAB L100.1820 35.1-43.9 fl Test Normal RDW SD not performed LAB L100.1900 150-450 K/mm3 181 Normal PLT LAB L100.2000 6.2-12.0 fl 8.7 Normal MPV LAB L100.2100 47-70 % High 90.2 NEUT% LAB L100.2200 19-41 % Low 4.0 LY% LAB L100.2300 0-10 % 5.0 Normal MONO% LAB L100.2400 0-5 % 0.5 Normal EO% LAB L100.2500 0-1 % 0.3 Normal BASO% LAB L100.2550 0.0-0.9 % IM Test Normal GRAN % not performed LAB L100.2620 2.0-7.7 X10 3/uL High 12.5 Absolute Neut LAB L100.2720 0.83-4.51 X10 3/ul Low 0.60 Absolute Lymph Performed By: #### L100.0100 #### [facility] [address] [place], [place], [address] Observed: 11/10/2017 Status: F Source: YOLANDA CULTURE, BLOOD (WB) 3:45 PM [facility] REPOSITORY BC No growth in 5 days. Performed By: #### M200.1000 #### [facility] [address] [place], [address] PROGRESS Observed: 11/10/2017 Status: COMPLETED Source: [place] 10:54 AM [facility] REPOSITORY HNO ID: [id number] Author: Cedrick Carballo (Rn) Service: (none) Author Type: Registered Nurse Type: Progress Notes Filed: 11/19/2017 2:35 PM Note Text: PRIMARY CARE COORDINATION QUICK NOTE Provider Action/FYI Tct Pt left a vm notified Pcp will review meds at appt 11/10 at 4:00. Patient identified by name and date . Kait Philip RN November 10, 2017 10:54 AM PROGRESS Observed: 11/09/2017 Status: COMPLETED Source: [place] 6:08 PM [facility] REPOSITORY HNO ID: [id number] Author: Valeria Mace Service: (none) Author Type: Physician Type: Progress Notes Filed: 11/19/2017 2:35 PM Note Text: Will review meds at appt 11/10 Valeria Mace MD PROGRESS Observed: 11/04/2017 Status: COMPLETED Source: [place] 5:56 PM [facility] REPOSITORY HNO ID: [id number] Author: Cedrick Carballo (Rn) Service: (none) Author Type: Registered Nurse Type: Progress Notes Filed: 11/19/2017 2:35 PM Note Text: PRIMARY CARE COORDINATION FOLLOW-UP NOTE Provider Action/FYI 1. Spk to Pt who reports denies CP or irregular Hr, or unusual symptoms, reports Sob with humidity, uses albuterol inhaler as needed, has a little coughing, reports swelling in her feet bilaterally, Pt noted started on Lasix 20 mg po Bid and Diamox 250 mg Po Tid, Pt wants to verify if she should continue Hydrochlorothiazide ? All new medications Pended for Pcp review Reviewed symptoms to report early to Pcp/ Cardiology Dr. Adelso Oliva [facility], Pt verbalized understanding. 2. Oxygen at 4 liters at HS only, has concentrator 3. Pt test BS 1x fagan FBS 100-145, states starts feeling Hypoglycemia at <100 treats with OJ. Reviewed [facility] Hypoglycemia Protocol. Pt verbalized understanding. 4. Pt states has occasional rectal bleeding due to irritable bowel 5. Pcp Appt scheduled for 11/10/17 Patient identified by name and date of . YES Spoke to patient Kait Philip RN November 04, 2017 6:27 PM November 05, 2017 11:51 AM FABIOLAARTURO Observed: 11/04/2017 Status: COMPLETED Source: [place] 12:00 AM [facility] REPOSITORY Patient Outreach (FAMPWS) EMILEE BASSETT ([id number]) 1965 F Date Time Provider Department 11/04/17 [facility] your visit today, we recorded the following information about you: Kait Philip RN 11/19/2017 2:35 PM Signed PRIMARY CARE COORDINATION FOLLOW-UP NOTE Provider Action/FYI 1. Spk to Pt who reports denies CP or irregular Hr, or unusual symptoms, reports Sob with humidity, uses albuterol inhaler as needed, has a little coughing, reports swelling in her feet bilaterally, Pt noted started on Lasix 20 mg po Bid and Diamox 250 mg Po Tid, Pt wants to verify if she should continue Hydrochlorothiazide ? All new medications Pended for Pcp review Reviewed symptoms to report early to Pcp/ Cardiology Dr. Darden [facility], Pt verbalized understanding. 2. Oxygen at 4 liters at HS only, has concentrator 3. Pt test BS 1x fagan FBS 100-145, states starts feeling Hypoglycemia at <100 treats with OJ. Reviewed [facility] Hypoglycemia Protocol. Pt verbalized understanding. 4. Pt states has occasional rectal bleeding due to irritable bowel 5. Pcp Appt scheduled for 11/10/17 Patient identified by name and date of . YES Spoke to patient Kait Philip RN November 04, 2017 6:27 PM November 05, 2017 11:51 AM Valeria Mace MD 11/19/2017 2:35 PM Signed Will review meds at appt 11/10 MD Kait Matta RN 11/19/2017 2:35 PM Signed PRIMARY CARE COORDINATION QUICK NOTE Provider Action/FYI Tct Pt left a vm notified Pcp will review meds at appt 11/10 at 4:00. Patient identified by name and date . Kait Philip RN November 10, 2017 10:54 AM Allergies As of Date: 11/04/2017 Noted Allergy Reaction LATEX 01/18/2009 7 - Swelling BLUEBERRY 02/02/2016 6 - Diarrhea LACTOSE INTOLERANCE (LACTASE) 03/16/2007 MUSHROOM 10/24/2015 12 - Shortness of Breath STRAWBERRY 10/24/2015 4 - Hives Date Reviewed: 02/06/2017 Reviewed by: Jaylene Frias - Fully Assessed Reason for Visit: Wet Process [facility] Follow Up [3805] Cmt: [facility] D/C 10/25/17 Dx: CHF, Afib, Bronchitis Reason For Visit History Recorded Prescriptions as of 11/04/2017 Sig: METOPROLOL SUCCINATE ER 25 MG* Take 1 tablet by mouth once d* OXYBUTYNIN CHLORIDE ER 15 MG * Take 1 tablet by mouth once d* DICYCLOMINE 20 MG TABLET Take 1 tablet by mouth every * PANTOPRAZOLE 40 MG TABLET,DEL* Take 1 tablet by mouth once d* LISINOPRIL 5 MG TABLET Take 1 tablet by mouth once d* TRAMADOL 50 MG TABLET Take 1 tablet by mouth three * NIFEREX-150 ORAL Take 150 mg by mouth once terry* ALBUTEROL SULFATE HFA 90 MCG/* Inhale 2 Puffs as instructed * GLUCOSE GEL ORAL Take by mouth as needed (1 d* GLIMEPIRIDE 2 MG TABLET Take 1 tablet by mouth daily * CYCLOBENZAPRINE 10 MG TABLET Take 1 tablet by mouth three * BLOOD-GLUCOSE METER KIT 1 Each as needed. BLOOD SUGAR DIAGNOSTIC STRIPS Test blood sugar(s) 1 times d* LANCETS Test blood sugar(s) 1 times * NAPROXEN SODIUM 220 MG TABLET Take 1 tablet by mouth twice * ALBUTEROL SULFATE HFA 90 MCG/* Inhale 2 Puffs as instructed * * THERAPEUTIC MULTIVITAMIN TABL* Take one(1) tablet daily. DILTIAZEM SR 240 MG 24 HR CAP Take 1 capsule by mouth once * ACETAZOLAMIDE 250 MG TABLET Take 1 tablet by mouth three * FUROSEMIDE 20 MG TABLET Take 1 tablet by mouth twice * GUAIFENESIN ER 1,200 MG TABLE* Take 1 tablet by mouth twice * NYSTATIN 100,000 UNIT/GRAM TO* Apply 1 application to affect* MENTHOL 0.44 %-ZINC OXIDE 20.* Apply 1 application to affect* POLYETHYLENE GLYCOL 3350 17 G* Take 1 Packet by mouth once d* ACETAMINOPHEN 325 MG TABLET Take 2 tablets by mouth every* APIXABAN 5 MG TABLET Take by mouth once daily. OMEPRAZOLE 20 MG CAPSULE,HOANG* Take 1 capsule by mouth once * MELOXICAM 15 MG TABLET Take 1 tablet by mouth once d* COMPOUNDED PRESCRIPTION Bariatric Hospital Bed. BUPROPION XL 150 MG TAB Take 1 tablet by mouth once d* FUROSEMIDE 80 MG TABLET Take 1 tablet by mouth twice * POTASSIUM CHLORIDE 20 MEQ ORA* Take 20 mEq by mouth twice da* INSULIN DETEMIR (U-100) 100 U* 10 units daily at bedtime HYDROCHLOROTHIAZIDE 25 MG TAB* Take 1 tablet by mouth once d* Problem List As Of Date 11/04/2017 Noted Resolved BENIGN HYPERTENSION [I10] INVALID FOR* ASTHMA UNSPECIFIED [J45.909] INVALID FOR* Obesity, Class III, BMI 40-49.9 (morbid obesity*INVALID FOR* GENERAL OSTEOARTHROSIS [M15.9] INVALID FOR* LUMBAGO [M54.5] INVALID FOR* Pure Hyperglyceridemia [E78.1] INVALID FOR* Cholelithiasis [K80.20] INVALID FOR* Sleep apnea [G47.30] INVALID FOR* Leg pain, bilateral [M79.604, M79.605] INVALID FOR* Mixed hyperlipidemia [E78.2] INVALID FOR* Type 2 diabetes mellitus without complication (*INVALID FOR* Congestive heart failure (HCC) [I50.9] INVALID FOR* Encounter Status:Closed by KAIT PHILIP on 11/19/17 CNPTOUTREA Observed: 11/04/2017 Status: COMPLETED Source: [place] 12:00 AM [facility] REPOSITORY Patient Outreach (FAMPWS) EMILEE BASSETT ([id number]) 1965 F Date Time Provider Department 11/04/17 CEDRICK CARBALLO (DEMAR) [facility]WS During your visit today, we recorded the following information about you: Kait Philip RN 11/24/2017 1:30 PM Signed PRIMARY CARE COORDINATION QUICK NOTE Provider Action/FYI Opened in error Patient identified by name and date . Kait Philip RN November 24, 2017 1:29 PM Allergies As of Date: 11/04/2017 Noted Allergy Reaction LATEX 01/18/2009 7 - Swelling BLUEBERRY 02/02/2016 6 - Diarrhea LACTOSE INTOLERANCE (LACTASE) 03/16/2007 MUSHROOM 10/24/2015 12 - Shortness of Breath STRAWBERRY 10/24/2015 4 - Hives Date Reviewed: 02/06/2017 Reviewed by: Jaylene Frias - Fully Assessed Prescriptions as of 11/04/2017 Sig: DILTIAZEM SR 240 MG 24 HR CAP Take 1 capsule by mouth once * ACETAZOLAMIDE 250 MG TABLET Take 1 tablet by mouth three * FUROSEMIDE 20 MG TABLET Take 1 tablet by mouth twice * GUAIFENESIN ER 1,200 MG TABLE* Take 1 tablet by mouth twice * NYSTATIN 100,000 UNIT/GRAM TO* Apply 1 application to affect* MENTHOL 0.44 %-ZINC OXIDE 20.* Apply 1 application to affect* POLYETHYLENE GLYCOL 3350 17 G* Take 1 Packet by mouth once d* ACETAMINOPHEN 325 MG TABLET Take 2 tablets by mouth every* METOPROLOL SUCCINATE ER 25 MG* Take 1 tablet by mouth once d* OXYBUTYNIN CHLORIDE ER 15 MG * Take 1 tablet by mouth once d* DICYCLOMINE 20 MG TABLET Take 1 tablet by mouth every * PANTOPRAZOLE 40 MG TABLET,DEL* Take 1 tablet by mouth once d* LISINOPRIL 5 MG TABLET Take 1 tablet by mouth once d* TRAMADOL 50 MG TABLET Take 1 tablet by mouth three * NIFEREX-150 ORAL Take 150 mg by mouth once terry* APIXABAN 5 MG TABLET Take by mouth once daily. ALBUTEROL SULFATE HFA 90 MCG/* Inhale 2 Puffs as instructed * GLUCOSE GEL ORAL Take by mouth as needed (1 d* GLIMEPIRIDE 2 MG TABLET Take 1 tablet by mouth daily * OMEPRAZOLE 20 MG CAPSULE,HOANG* Take 1 capsule by mouth once * MELOXICAM 15 MG TABLET Take 1 tablet by mouth once d* COMPOUNDED PRESCRIPTION Bariatric Hospital Bed. BUPROPION XL 150 MG TAB Take 1 tablet by mouth once d* FUROSEMIDE 80 MG TABLET Take 1 tablet by mouth twice * POTASSIUM CHLORIDE 20 MEQ ORA* Take 20 mEq by mouth twice da* INSULIN DETEMIR (U-100) 100 U* 10 units daily at bedtime HYDROCHLOROTHIAZIDE 25 MG TAB* Take 1 tablet by mouth once d* CYCLOBENZAPRINE 10 MG TABLET Take 1 tablet by mouth three * BLOOD-GLUCOSE METER KIT 1 Each as needed. BLOOD SUGAR DIAGNOSTIC STRIPS Test blood sugar(s) 1 times d* LANCETS Test blood sugar(s) 1 times * NAPROXEN SODIUM 220 MG TABLET Take 1 tablet by mouth twice * ALBUTEROL SULFATE HFA 90 MCG/* Inhale 2 Puffs as instructed * * THERAPEUTIC MULTIVITAMIN TABL* Take one(1) tablet daily. Problem List As Of Date 11/04/2017 Noted Resolved BENIGN HYPERTENSION [I10] INVALID FOR* ASTHMA UNSPECIFIED [J45.909] INVALID FOR* Obesity, Class III, BMI 40-49.9 (morbid obesity*INVALID FOR* GENERAL OSTEOARTHROSIS [M15.9] INVALID FOR* LUMBAGO [M54.5] INVALID FOR* Pure Hyperglyceridemia [E78.1] INVALID FOR* Cholelithiasis [K80.20] INVALID FOR* Sleep apnea [G47.30] INVALID FOR* Leg pain, bilateral [M79.604, M79.605] INVALID FOR* Mixed hyperlipidemia [E78.2] INVALID FOR* Type 2 diabetes mellitus without complication (*INVALID FOR* Congestive heart failure (HCC) [I50.9] INVALID FOR* Encounter Status:Closed by KAIT PHILIP on 11/24/17 BEDSIDE GLUCOSE Collected: 10/25/2017 Status: F Source: [place] 6:33 AM [facility] REPOSITORY TYPE CODE TESTS RESULT OUT OF RANGE REFERENCE UNITS LAB L501.080 70-110 mg/dL Normal BEDSIDE GLU 98 Result Comment: MANAGEMENT OF PATIENT CARE PER NURSING PROTOCOL Performed By: #### L501.080 #### [place] [facility] Laboratory Point of Care [address] [place], [place] [address] BEDSIDE GLUCOSE Collected: 10/24/2017 Status: F Source: [place] 9:08 PM [facility] REPOSITORY TYPE CODE TESTS RESULT OUT OF REFERENCE UNITS RANGE LAB L501.080 70-110 mg/dL High BEDSIDE GLU 143 Result Comment: MANAGEMENT OF PATIENT CARE PER NURSING PROTOCOL Performed By: #### L501.080 #### [facility] Point of Care [address] [place], [place] [id number] BEDSIDE GLUCOSE Collected: 10/24/2017 Status: F Source: [place] 5:04 PM [facility] REPOSITORY TYPE CODE TESTS RESULT OUT OF REFERENCE UNITS RANGE LAB L501.080 70-110 mg/dL High BEDSIDE GLU 144 Result Comment: MANAGEMENT OF PATIENT CARE PER NURSING PROTOCOL Performed By: #### L501.080 #### [facility] Point of Care [address] [place], [place] [id number] BEDSIDE GLUCOSE Collected: 10/24/2017 Status: F Source: [place] 11:36 AM [facility] REPOSITORY TYPE CODE TESTS RESULT OUT OF REFERENCE UNITS RANGE LAB L501.080 70-110 mg/dL High BEDSIDE GLU 116 Result Comment: Dr Ramos Followed MANAGEMENT OF PATIENT CARE PER NURSING PROTOCOL Performed By: #### L501.080 #### [facility] Point of Care [address] [place], [place] [id number] BEDSIDE GLUCOSE Collected: 10/24/2017 Status: F Source: [place] 6:46 AM [facility] REPOSITORY TYPE CODE TESTS RESULT OUT OF RANGE REFERENCE UNITS LAB L501.080 70-110 mg/dL Normal BEDSIDE GLU 89 Result Comment: MANAGEMENT OF PATIENT CARE PER NURSING PROTOCOL Performed By: #### L501.080 #### [facility] Point of Care [address] [place] [address] CBC W/DIFF, AUTOMATED Collected: 10/24/2017 Status: F Source: [place] 5:10 AM [facility] REPOSITORY TYPE CODE TESTS RESULT OUT OF RANGE REFERENCE UNITS LAB L100.1000 4.4-11.0 K/mm3 Normal WBC 6.2 LAB L100.1200 4.2-5.4 M/mm3 Low RBC 3.62 LAB L100.1300 12.0-15.0 g/dl Low HGB 9.1 LAB L100.1400 37-47 % Low HCT 33.2 LAB L100.1500 81-99 fL Normal MCV 91.7 LAB L100.1600 27.0-32.0 pg Low MCH 25.1 LAB L100.1700 32-36 g/gl Low MCHC 27.4 LAB L100.1810 11.6-14.6 % High RDW CV 16.6 LAB L100.1820 35.1-43.9 fl High RDW SD 56.0 LAB L100.1900 150-450 K/mm3 Low PLT 149 LAB L100.2000 6.2-12.0 fl Normal MPV 9.2 LAB L100.2100 47-70 % Normal NEUT% 69.7 LAB L100.2200 19-41 % Low LY% 18.7 LAB L100.2300 0-10 % Normal MONO% 4.8 LAB L100.2400 0-5 % High EO% 6.3 LAB L100.2500 0-1 % Normal BASO% 0.3 LAB L100.2550 0.0-0.9 % Normal IM GRAN % 0.200 Result Comment: IG% - Immature Granulocytes (promyelocytes, myelocytes and metamyelocytes) > 1% indicates that a LEFT SHIFT is Present. LAB L100.2620 2.0-7.7 X10 3/uL Normal Absolute Neut 4.3 LAB L100.2720 0.83-4.51 X10 3/ul Normal Absolute Lymph 1.16 Performed By: #### L100.0100 #### [facility] [address] [place], [address] BASIC METABOLIC Collected: 10/24/2017 Status: F Source: [place] PROFILE ([facility]) 5:10 AM [facility] REPOSITORY TYPE CODE TESTS RESULT OUT OF RANGE REFERENCE UNITS LAB L501.0100 74-106 mg/dL Normal GLU 84 Result Comment: Please note revised GLUCOSE reference range effective 2017. LAB L501.1000 7-18 mg/dL High BUN 40 LAB L501.1100 0.55-1.02 mg/dL Normal CREAT,SERUM 1.01 Result Comment: The validity of the calculated GFR AND GFRAA in patients over 70 years has not been determined. Clinical correlation is essential. LAB L501.1110 >60 mL/min Normal EST GFR 61 Result Comment: Non- GFR Calc LAB L501.1115 >60 mL/min Normal EST GFR - AA 74 Result Comment: GFR Calc LAB L501.1255 ml/min Normal Estimated CRCL 46.80 LAB L501.1300 10-20 RATIO High BUN/CRE 39.6 LAB L501.2200 8.5-10 mg/dL Low .1 CA 8.4 LAB L501.5300 136-14 mmol/L Normal 5 NA 144 LAB L501.5600 3.5-5. mmol/L Normal 1 K 4.4 LAB L501.5900 98-107 mmol/L Normal CL 107 LAB L501.6100 21.0-3 mmol/L Normal 2.0 CO2 30.0 LAB L501.6200 5-15 Normal GAP 7 Performed By: #### L500.2500 #### [facility] [address] [place], [address] BEDSIDE GLUCOSE Collected: 10/23/2017 Status: F Source: [place] 9:12 PM [facility] REPOSITORY TYPE CODE TESTS RESULT OUT OF REFERENCE UNITS RANGE LAB L501.080 70-110 mg/dL High BEDSIDE GLU 115 Result Comment: MANAGEMENT OF PATIENT CARE PER NURSING PROTOCOL Performed By: #### L501.080 #### [facility] Point of Care [address] [facility] [place] [address] BEDSIDE GLUCOSE Collected: 10/23/2017 Status: F Source: [place] 5:33 PM [facility] REPOSITORY TYPE CODE TESTS RESULT OUT OF REFERENCE UNITS RANGE LAB L501.080 70-110 mg/dL High BEDSIDE GLU 135 Result Comment: MANAGEMENT OF PATIENT CARE PER NURSING PROTOCOL Performed By: #### L501.080 #### [facility] Point of Care [address] [place] [address] BEDSIDE GLUCOSE Collected: 10/23/2017 Status: F Source: [place] 11:18 AM [facility] REPOSITORY TYPE CODE TESTS RESULT OUT OF REFERENCE UNITS RANGE LAB L501.080 70-110 mg/dL High BEDSIDE GLU 158 Result Comment: MANAGEMENT OF PATIENT CARE PER NURSING PROTOCOL Performed By: #### L501.080 #### [facility] Point of Care [address] [place], [place] [id number] BEDSIDE GLUCOSE Collected: 10/23/2017 Status: F Source: [place] 6:32 AM [facility] REPOSITORY TYPE CODE TESTS RESULT OUT OF RANGE REFERENCE UNITS LAB L501.080 70-110 mg/dL Normal BEDSIDE GLU 101 Result Comment: MANAGEMENT OF PATIENT CARE PER NURSING PROTOCOL Performed By: #### L501.080 #### [facility] Point of Care [address] [place], [place] [id number] BEDSIDE GLUCOSE Collected: 10/22/2017 Status: F Source: [place] 8:57 PM [facility] REPOSITORY TYPE CODE TESTS RESULT OUT OF REFERENCE UNITS RANGE LAB L501.080 70-110 mg/dL High BEDSIDE GLU 138 Result Comment: MANAGEMENT OF PATIENT CARE PER NURSING PROTOCOL Performed By: #### L501.080 #### [facility] Point of Care [address] [place] [address] BEDSIDE GLUCOSE Collected: 10/22/2017 Status: F Source: [place] 5:07 PM [facility] REPOSITORY TYPE CODE TESTS RESULT OUT OF RANGE REFERENCE UNITS LAB L501.080 70-110 mg/dL Normal BEDSIDE GLU 104 Result Comment: MANAGEMENT OF PATIENT CARE PER NURSING PROTOCOL Performed By: #### L501.080 #### [facility] Point of Care [address] [place] [address] BEDSIDE GLUCOSE Collected: 10/22/2017 Status: F Source: [place] 11:42 AM [facility] REPOSITORY TYPE CODE TESTS RESULT OUT OF REFERENCE UNITS RANGE LAB L501.080 70-110 mg/dL High BEDSIDE GLU 120 Result Comment: Orders Followed MANAGEMENT OF PATIENT CARE PER NURSING PROTOCOL Performed By: #### L501.080 #### [facility] Point of Care [address] [place] [address] BEDSIDE GLUCOSE Collected: 10/22/2017 Status: F Source: [place] 6:27 AM [facility] REPOSITORY TYPE CODE TESTS RESULT OUT OF RANGE REFERENCE UNITS LAB L501.080 70-110 mg/dL Normal BEDSIDE GLU 97 Result Comment: MANAGEMENT OF PATIENT CARE PER NURSING PROTOCOL Performed By: #### L501.080 #### [facility] Point of Care [address] [place] [address] DISCHARGE SUMMARY Observed: 10/21/2017 Status: F Source: [place] 10:24 PM [facility] REPOSITORY [facility] Medical Records Department [address] [place] [address] Discharge Summary 10/21/17 2221 MR#: [id number] Acct: [id number] Name: EMILEE BASSETT Rep #: [id number] : 1965 52 From: Jovani Branch MD PCP: Valeria Mace MD Status: ADM IN Y Location: [place] [address] Discharge Date and Diagnosis - Problem List Patient Problems: Active and Suspected Problems Shortness of breath (Acute) Acute on chronic diastolic heart failure (Acute) Acute bronchitis (Acute) Atrial fibrillation with RVR (Acute) Otitis externa (Acute) Metabolic alkalosis (Acute) Blood in stool (Acute) Date of Admission: 10/09/17 Date of Discharge: 10/25/17 - Primary Discharge Diagnosis Active and Suspected Problems Shortness of breath (Acute) Acute on chronic diastolic heart failure (Acute) Acute bronchitis (Acute) Atrial fibrillation with RVR (Acute) Otitis externa (Acute) Metabolic alkalosis (Acute) Blood in stool (Acute) - Secondary Discharge Diagnosis Chronic Problems acute on chronic blood loss anemia (Chronic) Morbid obesity (Chronic) Anemia (Chronic) GERD (gastroesophageal reflux disease) (Chronic) Irritable bowel syndrome (Chronic) Overactive bladder (Chronic) Wide-complex tachycardia (Chronic) Chronic diastolic CHF (congestive heart failure) (Chronic) Type 2 diabetes mellitus (Chronic) HgbA1c 06/2016 6.5%. 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 Cholelithiasis. Electronically Signed: Nazario Guerrero DO at 19:14 EDT Tel [phone], Service support , Labs (Last 48 Hours) POC Glucose 107 160 H 108 POC Glucose 144 H 89 161 H POC Glucose 148 H 105 Operations: None Procedures: None Summary of Care Provided: The patient is a 52 year old Female with below past medical history hospitalized for shortness of breath secondary to acute on chronic diastolic heart failure, acute bronchitis, complicated by metabolic alkalosis, left otitis externa, new onset atrial fibrillation with rapid ventricular response, admitted to TCU with debility, here for rehabilitation, strengthening, prior to discharge home with spouse. Discharge home with spouse. Discharge Diet: No Restrictions Discharge Activity: Return to Normal Activity, May Shower, Use Walker Weight Bearing Status: Weight bearing as tolerated Call your doctor if you observe: Fever of 101 or Higher, Inability to urinate, Inability to have a bowel movement, Shortness of breath, Chest pain, Uncontrolled pain Home Medications: Medications to take at Discharge Albuterol Sulfate [Ventolin Hfa] 2 puff INHALATION Q4H PRN PRN 01/08/17 Pantoprazole Sodium [Protonix] 40 mg PO DAILY 02/13/17 Lisinopril [Prinivil] 5 mg PO DAILY 03/06/17 Metoprolol(XL)Succ [Toprol Xl (Beta Vikki)] 25 mg PO DAILY 03/06/17 Acetaminophen [Tylenol Tablet] 650 mg PO Q6H PRN PRN 03/10/17 Dicyclomine HCl [Bentyl] 20 mg PO Q6H PRN PRN 03/10/17 Glimepiride [Amaryl] 1 tab PO DAILY 08/05/17 Multivitamin [Daily Multiple Vitamin] 1 each PO DAILY 08/05/17 Oxybutynin Chloride [Ditropan Xl] 15 mg PO DAILY 08/05/17 Guaifenesin [Mucinex] 1,200 mg PO BID 10/04/17 AcetaAZOLAMIDE [Diamox] 250 mg PO TID #90 tab 10/21/17 Diltiazem CD [Cardizem CD] 240 mg PO DAILY #60 cap 10/21/17 Furosemide [Lasix] 20 mg PO BIDLX #60 tab 10/21/17 Iron Polysaccharide Complex [Ferrex 150] 150 mg PO DAILYCM #30 cap 10/21/17 Menthol/Lanolin/Calamine/Znox [Calmoseptine Ointment] 1 applic TOPICAL TID tube 10/21/17 Nystatin Powder [Mycostatin Powder] 1 applic TOPICAL 0600,2200 #1 bottle 10/21/17 Polyethylene Glycol 3350 [Miralax] 17 gm PO DAILY #30 packet 10/21/17 Following Prescrptions Were Given to Patient: Diltiazem CD [Cardizem CD] 240 mg PO DAILY #60 cap Furosemide [Lasix] 20 mg PO BIDLX #60 tab Iron Polysaccharide Complex [Ferrex 150] 150 mg PO DAILYCM #30 cap Nystatin Powder [Mycostatin Powder] 1 applic TOPICAL 0600,2200 #1 bottle Polyethylene Glycol 3350 [Miralax] 17 gm PO DAILY #30 packet AcetaAZOLAMIDE [Diamox] 250 mg PO TID #90 tab Primary Care Physician: Valeria Mace MD [Primary Care Provider] - Please follow up with your Primary Care Physician in: 1 week. Disposition: Home Minutes spent on discharge:: 30 Patient Condition:: Stable Medical Necessity - Tobacco Use Smoking Status: Former smoker Tobacco Use: Non-smoker Meaningful Use Info Meaningful Use Diagnoses (Choose all that apply): None applicable 10/21/172223 <Electronically signed by Jovani Branch MD> Date Jovani Branch MD Cosigner Signature (if applicable): Date CC: Valeria Mace MD; Jovani Branch MD Signed DISCHARGE INSTRUCTION Observed: 10/21/2017 Status: F Source: [place] 10:21 PM [facility] REPOSITORY [facility] Medical Records Department [address] [place] [address] Instructions for Home/Discharge Instructions 10/21/17 2219 MR#: [id number] Acct: [id number] Name: EMILEE BASSETT Rep #: [id number] : 1965 52 From: Jovani Branch MD PCP: Valeria Mace MD Status: ADM IN - Discharge Diagnoses Current Active Problems: Current Active and Chronic Problems Shortness of breath (Acute) Acute on chronic diastolic heart failure (Acute) Acute bronchitis (Acute) Atrial fibrillation with RVR (Acute) Otitis externa (Acute) Metabolic alkalosis (Acute) Blood in stool (Acute) Morbid obesity (Chronic) Anemia (Chronic) GERD (gastroesophageal reflux disease) (Chronic) Irritable bowel syndrome (Chronic) Overactive bladder (Chronic) You will use the following diet at home:: No restrictions, Regular Your food should be the consistency of: Regular Your liquids should be the consistency of: Regular/Thin Discharge Activity: Return to Normal Activity, May Shower, Use Walker Weight Bearing Status: Weight bearing as tolerated Call your doctor if you observe: Fever of 101 or Higher, Inability to urinate, Inability to have a bowel movement, Shortness of breath, Chest pain, Uncontrolled pain Allergies/Adverse Reactions: Allergies latex Allergy (Verified 08/05/17 21:19) Rash levofloxacin [From Levaquin] Adverse Reaction (Verified 08/05/17 21:19) SPEEDS UP MY HEART AND SHUTS DOWN MY KIDNEYS mushrooms Allergy (Uncoded 08/05/17 21:19) Anaphylaxis STRAWBERRIES Allergy (Uncoded 08/05/17 21:19) Rash Medications to take at Discharge Albuterol Sulfate [Ventolin Hfa] 2 puff INHALATION Q4H PRN PRN 01/08/17 Pantoprazole Sodium [Protonix] 40 mg PO DAILY 02/13/17 Lisinopril [Prinivil] 5 mg PO DAILY 03/06/17 Metoprolol(XL)Succ [Toprol Xl (Beta Vikki)] 25 mg PO DAILY 03/06/17 Acetaminophen [Tylenol Tablet] 650 mg PO Q6H PRN PRN 03/10/17 Dicyclomine HCl [Bentyl] 20 mg PO Q6H PRN PRN 03/10/17 Glimepiride [Amaryl] 1 tab PO DAILY 08/05/17 Multivitamin [Daily Multiple Vitamin] 1 each PO DAILY 08/05/17 Oxybutynin Chloride [Ditropan Xl] 15 mg PO DAILY 08/05/17 Guaifenesin [Mucinex] 1,200 mg PO BID 10/04/17 AcetaAZOLAMIDE [Diamox] 250 mg PO TID #90 tab 10/21/17 Diltiazem CD [Cardizem CD] 240 mg PO DAILY #60 cap 10/21/17 Furosemide [Lasix] 20 mg PO BIDLX #60 tab 10/21/17 Iron Polysaccharide Complex [Ferrex 150] 150 mg PO DAILYCM #30 cap 10/21/17 Menthol/Lanolin/Calamine/Znox [Calmoseptine Ointment] 1 applic TOPICAL TID tube 10/21/17 Nystatin Powder [Mycostatin Powder] 1 applic TOPICAL 0600,2200 #1 bottle 10/21/17 Polyethylene Glycol 3350 [Miralax] 17 gm PO DAILY #30 packet 10/21/17 The following prescriptions were given: Diltiazem CD [Cardizem CD] 240 mg PO DAILY #60 cap Furosemide [Lasix] 20 mg PO BIDLX #60 tab Iron Polysaccharide Complex [Ferrex 150] 150 mg PO DAILYCM #30 cap Nystatin Powder [Mycostatin Powder] 1 applic TOPICAL 0600,2200 #1 bottle Polyethylene Glycol 3350 [Miralax] 17 gm PO DAILY #30 packet AcetaAZOLAMIDE [Diamox] 250 mg PO TID #90 tab Primary Care Physician: Valeria Mace MD [Primary Care Provider] - Please follow up with your Primary Care Physician in: 1 week. Proposed Discharge Date: 10/25/17 10/21/172220 <Electronically signed by Jovani Branch MD> Date Jovani Branch MD CC: Valeria Mace MD BEDSIDE GLUCOSE Collected: 10/21/2017 Status: F Source: YOLANDA 9:19 PM [facility] REPOSITORY TYPE CODE TESTS RESULT OUT OF RANGE REFERENCE UNITS LAB L501.080 70-110 mg/dL Normal BEDSIDE GLU 105 Result Comment: MANAGEMENT OF PATIENT CARE PER NURSING PROTOCOL Performed By: #### L501.080 #### [facility] [address] [place] [address] BEDSIDE GLUCOSE Collected: 10/21/2017 Status: F Source: YOLANDA 4:54 PM [facility] REPOSITORY TYPE CODE TESTS RESULT OUT OF REFERENCE UNITS RANGE LAB L501.080 70-110 mg/dL High BEDSIDE GLU 148 Result Comment: MANAGEMENT OF PATIENT CARE PER NURSING PROTOCOL Performed By: #### L501.080 #### [facility] [address] [place] [address] BEDSIDE GLUCOSE Collected: 10/21/2017 Status: F Source: YOLANDA 11:24 AM [facility] REPOSITORY TYPE CODE TESTS RESULT OUT OF REFERENCE UNITS RANGE LAB L501.080 70-110 mg/dL High BEDSIDE GLU 161 Result Comment: MANAGEMENT OF PATIENT CARE PER NURSING PROTOCOL Performed By: #### L501.080 #### [facility] [address] [place] [address] BEDSIDE GLUCOSE Collected: 10/21/2017 Status: F Source: YOLANDA 6:51 AM [facility] REPOSITORY TYPE CODE TESTS RESULT OUT OF RANGE REFERENCE UNITS LAB L501.080 70-110 mg/dL Normal BEDSIDE GLU 89 Result Comment: MANAGEMENT OF PATIENT CARE PER NURSING PROTOCOL Performed By: #### L501.080 #### [facility] [address] [place] [address] BEDSIDE GLUCOSE Collected: 10/20/2017 Status: F Source: YOLANDA 9:10 PM [facility] REPOSITORY TYPE CODE TESTS RESULT OUT OF REFERENCE UNITS RANGE LAB L501.080 70-110 mg/dL High BEDSIDE GLU 144 Result Comment: MANAGEMENT OF PATIENT CARE PER NURSING PROTOCOL Performed By: #### L501.080 #### [facility] [address] [place] [address] BEDSIDE GLUCOSE Collected: 10/20/2017 Status: F Source: YOLANDA 4:51 PM [facility] REPOSITORY TYPE CODE TESTS RESULT OUT OF RANGE REFERENCE UNITS LAB L501.080 70-110 mg/dL Normal BEDSIDE GLU 108 Result Comment: MANAGEMENT OF PATIENT CARE PER NURSING PROTOCOL Performed By: #### L501.080 #### [facility] [address] [place] [address] BEDSIDE GLUCOSE Collected: 10/20/2017 Status: F Source: YOLANDA 11:27 AM [facility] REPOSITORY TYPE CODE TESTS RESULT OUT OF REFERENCE UNITS RANGE LAB L501.080 70-110 mg/dL High BEDSIDE GLU 160 Result Comment: MANAGEMENT OF PATIENT CARE PER NURSING PROTOCOL Performed By: #### L501.080 #### [facility] [address] [place] [address] BEDSIDE GLUCOSE Collected: 10/20/2017 Status: F Source: YOLANDA 6:41 AM [facility] REPOSITORY TYPE CODE TESTS RESULT OUT OF RANGE REFERENCE UNITS LAB L501.080 70-110 mg/dL Normal BEDSIDE GLU 107 Result Comment: MANAGEMENT OF PATIENT CARE PER NURSING PROTOCOL Performed By: #### L501.080 #### [facility] [address] [place] [address] BEDSIDE GLUCOSE Collected: 10/19/2017 Status: F Source: YOLANDA 8:49 PM [facility] REPOSITORY TYPE CODE TESTS RESULT OUT OF REFERENCE UNITS RANGE LAB L501.080 70-110 mg/dL High BEDSIDE GLU 145 Result Comment: MANAGEMENT OF PATIENT CARE PER NURSING PROTOCOL Performed By: #### L501.080 #### [facility] [address] [place] [address] BEDSIDE GLUCOSE Collected: 10/19/2017 Status: F Source: YOLANDA 4:57 PM [facility] REPOSITORY TYPE CODE TESTS RESULT OUT OF REFERENCE UNITS RANGE LAB L501.080 70-110 mg/dL High BEDSIDE GLU 150 Result Comment: Dr Orders Followed MANAGEMENT OF PATIENT CARE PER NURSING PROTOCOL Performed By: #### L501.080 #### [facility] [address] [place] [address] BEDSIDE GLUCOSE Collected: 10/19/2017 Status: F Source: YOLANDA 11:15 AM [facility] REPOSITORY TYPE CODE TESTS RESULT OUT OF REFERENCE UNITS RANGE LAB L501.080 70-110 mg/dL High BEDSIDE GLU 131 Result Comment: MANAGEMENT OF PATIENT CARE PER NURSING PROTOCOL Performed By: #### L501.080 #### [facility] [address] [place] [address] BEDSIDE GLUCOSE Collected: 10/19/2017 Status: F Source: YOLANDA 6:46 AM [facility] REPOSITORY TYPE CODE TESTS RESULT OUT OF RANGE REFERENCE UNITS LAB L501.080 70-110 mg/dL Normal BEDSIDE GLU 97 Result Comment: MANAGEMENT OF PATIENT CARE PER NURSING PROTOCOL Performed By: #### L501.080 #### [facility] [address] [place] [address] BEDSIDE GLUCOSE Collected: 10/18/2017 Status: F Source: YOLANDA 8:57 PM [facility] REPOSITORY TYPE CODE TESTS RESULT OUT OF REFERENCE UNITS RANGE LAB L501.080 70-110 mg/dL High BEDSIDE GLU 111 Result Comment: MANAGEMENT OF PATIENT CARE PER NURSING PROTOCOL Performed By: #### L501.080 #### [facility] [address] [place] [address] BEDSIDE GLUCOSE Collected: 10/18/2017 Status: F Source: YOLANDA 4:49 PM [facility] REPOSITORY TYPE CODE TESTS RESULT OUT OF REFERENCE UNITS RANGE LAB L501.080 70-110 mg/dL High BEDSIDE GLU 137 Result Comment: MANAGEMENT OF PATIENT CARE PER NURSING PROTOCOL Performed By: #### L501.080 #### [facility] [address] [place] [address] BEDSIDE GLUCOSE Collected: 10/18/2017 Status: F Source: YOLANDA 11:15 AM [facility] REPOSITORY TYPE CODE TESTS RESULT OUT OF REFERENCE UNITS RANGE LAB L501.080 70-110 mg/dL High BEDSIDE GLU 127 Result Comment: MANAGEMENT OF PATIENT CARE PER NURSING PROTOCOL Performed By: #### L501.080 #### [facility] [address] [place] [address] BEDSIDE GLUCOSE Collected: 10/18/2017 Status: F Source: YOLANDA 6:50 AM [facility] REPOSITORY TYPE CODE TESTS RESULT OUT OF REFERENCE UNITS RANGE LAB L501.080 70-110 mg/dL High BEDSIDE GLU 114 Result Comment: MANAGEMENT OF PATIENT CARE PER NURSING PROTOCOL Performed By: #### L501.080 #### [facility] [address] [place] [address] BEDSIDE GLUCOSE Collected: 10/17/2017 Status: F Source: YOLANDA 9:10 PM [facility] REPOSITORY TYPE CODE TESTS RESULT OUT OF REFERENCE UNITS RANGE LAB L501.080 70-110 mg/dL High BEDSIDE GLU 153 Result Comment: MANAGEMENT OF PATIENT CARE PER NURSING PROTOCOL Performed By: #### L501.080 #### [facility] [address] [place] [address] BEDSIDE GLUCOSE Collected: 10/17/2017 Status: F Source: YOLANDA 4:44 PM [facility] REPOSITORY TYPE CODE TESTS RESULT OUT OF REFERENCE UNITS RANGE LAB L501.080 70-110 mg/dL High BEDSIDE GLU 133 Result Comment: MANAGEMENT OF PATIENT CARE PER NURSING PROTOCOL Performed By: #### L501.080 #### [facility] [address] [place] [address] BEDSIDE GLUCOSE Collected: 10/17/2017 Status: F Source: YOLANDA 11:10 AM [facility] REPOSITORY TYPE CODE TESTS RESULT OUT OF REFERENCE UNITS RANGE LAB L501.080 70-110 mg/dL High BEDSIDE GLU 169 Result Comment: MANAGEMENT OF PATIENT CARE PER NURSING PROTOCOL Performed By: #### L501.080 #### [facility] [address] [place] [address] BEDSIDE GLUCOSE Collected: 10/17/2017 Status: F Source: YOLANDA 6:28 AM [facility] REPOSITORY TYPE CODE TESTS RESULT OUT OF RANGE REFERENCE UNITS LAB L501.080 70-110 mg/dL Normal BEDSIDE GLU 102 Result Comment: MANAGEMENT OF PATIENT CARE PER NURSING PROTOCOL Performed By: #### L501.080 #### [facility] [address] [place], [place] [address] CBC W/DIFF, AUTOMATED Collected: 10/17/2017 Status: F Source: YOLANDA 5:10 AM [facility] REPOSITORY TYPE CODE TESTS RESULT OUT OF RANGE REFERENCE UNITS LAB L100.1000 4.4-11.0 K/mm3 Normal WBC 6.4 LAB L100.1200 4.2-5.4 M/mm3 Low RBC 3.47 LAB L100.1300 12.0-15.0 g/dl Low HGB 8.9 LAB L100.1400 37-47 % Low HCT 32.2 LAB L100.1500 81-99 fL Normal MCV 92.8 LAB L100.1600 27.0-32.0 pg Low MCH 25.6 LAB L100.1700 32-36 g/gl Low MCHC 27.6 LAB L100.1810 11.6-14.6 % High RDW CV 16.4 LAB L100.1820 35.1-43.9 fl High RDW SD 53.7 LAB L100.1900 150-450 K/mm3 Normal PLT 249 LAB L100.2000 6.2-12.0 fl Normal MPV 9.6 LAB L100.2100 47-70 % Normal NEUT% 65.5 LAB L100.2200 19-41 % Normal LY% 19.9 LAB L100.2300 0-10 % Normal MONO% 8.8 LAB L100.2400 0-5 % Normal EO% 4.9 LAB L100.2500 0-1 % Normal BASO% 0.3 LAB L100.2550 0.0-0.9 % Normal IM GRAN % 0.600 Result Comment: IG% - Immature Granulocytes (promyelocytes, myelocytes and metamyelocytes) > 1% indicates that a LEFT SHIFT is Present. LAB L100.2620 2.0-7.7 X10 3/uL Normal Absolute Neut 4.2 LAB L100.2720 0.83-4.51 X10 3/ul Normal Absolute Lymph 1.27 Performed By: #### L100.0100 #### [facility] [address] [place], [place], [id number] BASIC METABOLIC Collected: 10/17/2017 Status: F Source: YOLANDA PROFILE (BMP) 5:10 AM [facility] REPOSITORY TYPE CODE TESTS RESULT OUT OF RANGE REFERENCE UNITS LAB L501.0100 74-106 mg/dL Normal GLU 94 Result Comment: Please note revised GLUCOSE reference range effective 2017. LAB L501.1000 7-18 mg/dL High BUN 27 LAB L501.1100 0.55-1.02 mg/dL High CREAT,SERUM 1.09 Result Comment: The validity of the calculated GFR AND GFRAA in patients over 70 years has not been determined. Clinical correlation is essential. LAB L501.1110 >60 mL/min Low EST GFR 56 Result Comment: Non- GFR Calc LAB L501.1115 >60 mL/min Normal EST GFR - AA 68 Result Comment: GFR Calc LAB L501.1255 ml/min Normal Estimated CRCL 43.37 LAB L501.1300 10-20 RATIO High BUN/CRE 24.8 LAB L501.2200 8.5-10 mg/dL Normal .1 CA 8.5 LAB L501.5300 136-14 mmol/L Normal 5 NA 143 LAB L501.5600 3.5-5. mmol/L Normal 1 K 4.3 LAB L501.5900 98-107 mmol/L Normal CL 107 LAB L501.6100 21.0-3 mmol/L Normal 2.0 CO2 30.0 LAB L501.6200 5-15 Normal GAP 6 Performed By: #### L500.2500 #### [facility] [address] [place] [address]. [place], [place], [id number] BEDSIDE GLUCOSE Collected: 10/16/2017 Status: F Source: YOLANDA 9:20 PM [facility] REPOSITORY TYPE CODE TESTS RESULT OUT OF REFERENCE UNITS RANGE LAB L501.080 70-110 mg/dL High BEDSIDE GLU 114 Result Comment: MANAGEMENT OF PATIENT CARE PER NURSING PROTOCOL Performed By: #### L501.080 #### [facility] [address] [facility] [place] [address] BEDSIDE GLUCOSE Collected: 10/16/2017 Status: F Source: YOLANDA 4:52 PM [facility] REPOSITORY TYPE CODE TESTS RESULT OUT OF RANGE REFERENCE UNITS LAB L501.080 70-110 mg/dL Normal BEDSIDE GLU 109 Result Comment: MANAGEMENT OF PATIENT CARE PER NURSING PROTOCOL Performed By: #### L501.080 #### [facility] [address] [place] [address] BEDSIDE GLUCOSE Collected: 10/16/2017 Status: F Source: YOLANDA 11:06 AM [facility] REPOSITORY TYPE CODE TESTS RESULT OUT OF REFERENCE UNITS RANGE LAB L501.080 70-110 mg/dL High BEDSIDE GLU 142 Result Comment: Dr Ramos Followed MANAGEMENT OF PATIENT CARE PER NURSING PROTOCOL Performed By: #### L501.080 #### [facility] [address] [place] [address] BEDSIDE GLUCOSE Collected: 10/16/2017 Status: F Source: YOLANDA 6:17 AM [facility] REPOSITORY TYPE CODE TESTS RESULT OUT OF RANGE REFERENCE UNITS LAB L501.080 70-110 mg/dL Normal BEDSIDE GLU 108 Result Comment: MANAGEMENT OF PATIENT CARE PER NURSING PROTOCOL Performed By: #### L501.080 #### [facility] [address] [place] [address] BEDSIDE GLUCOSE Collected: 10/15/2017 Status: F Source: YOLANDA 8:51 PM [facility] REPOSITORY TYPE CODE TESTS RESULT OUT OF REFERENCE UNITS RANGE LAB L501.080 70-110 mg/dL High BEDSIDE GLU 153 Result Comment: MANAGEMENT OF PATIENT CARE PER NURSING PROTOCOL Performed By: #### L501.080 #### [facility] [address] [place] [address] BEDSIDE GLUCOSE Collected: 10/15/2017 Status: F Source: YOLANDA 4:46 PM [facility] REPOSITORY TYPE CODE TESTS RESULT OUT OF REFERENCE UNITS RANGE LAB L501.080 70-110 mg/dL High BEDSIDE GLU 125 Result Comment: MANAGEMENT OF PATIENT CARE PER NURSING PROTOCOL Performed By: #### L501.080 #### [facility] [address] [place] [address] BEDSIDE GLUCOSE Collected: 10/15/2017 Status: F Source: YOLANDA 11:39 AM [facility] REPOSITORY TYPE CODE TESTS RESULT OUT OF REFERENCE UNITS RANGE LAB L501.080 70-110 mg/dL High BEDSIDE GLU 152 Result Comment: MANAGEMENT OF PATIENT CARE PER NURSING PROTOCOL Performed By: #### L501.080 #### [facility] [address] [place] [address] BEDSIDE GLUCOSE Collected: 10/15/2017 Status: F Source: YOLANDA 6:19 AM [facility] REPOSITORY TYPE CODE TESTS RESULT OUT OF REFERENCE UNITS RANGE LAB L501.080 70-110 mg/dL High BEDSIDE GLU 128 Result Comment: MANAGEMENT OF PATIENT CARE PER NURSING PROTOCOL Performed By: #### L501.080 #### [facility] [address] [place] [address] BEDSIDE GLUCOSE Collected: 10/14/2017 Status: F Source: YOLANDA 9:50 PM [facility] REPOSITORY TYPE CODE TESTS RESULT OUT OF REFERENCE UNITS RANGE LAB L501.080 70-110 mg/dL High BEDSIDE GLU 125 Result Comment: MANAGEMENT OF PATIENT CARE PER NURSING PROTOCOL Performed By: #### L501.080 #### [facility] [address] [place] [address] BEDSIDE GLUCOSE Collected: 10/14/2017 Status: F Source: YOLANDA 4:55 PM [facility] REPOSITORY TYPE CODE TESTS RESULT OUT OF RANGE REFERENCE UNITS LAB L501.080 70-110 mg/dL Normal BEDSIDE GLU 86 Result Comment: MANAGEMENT OF PATIENT CARE PER NURSING PROTOCOL Performed By: #### L501.080 #### [facility] [address] [place] [address] BEDSIDE GLUCOSE Collected: 10/14/2017 Status: F Source: YOLANDA 11:14 AM [facility] REPOSITORY TYPE CODE TESTS RESULT OUT OF REFERENCE UNITS RANGE LAB L501.080 70-110 mg/dL High BEDSIDE GLU 143 Result Comment: MANAGEMENT OF PATIENT CARE PER NURSING PROTOCOL Performed By: #### L501.080 #### [facility] [address] [place] [address] BEDSIDE GLUCOSE Collected: 10/14/2017 Status: F Source: YOLANDA 6:26 AM [facility] REPOSITORY TYPE CODE TESTS RESULT OUT OF RANGE REFERENCE UNITS LAB L501.080 70-110 mg/dL Normal BEDSIDE GLU 109 Result Comment: MANAGEMENT OF PATIENT CARE PER NURSING PROTOCOL Performed By: #### L501.080 #### [facility] [address] [place], [place] [address] BEDSIDE GLUCOSE Collected: 10/13/2017 Status: F Source: YOLANDA 9:32 PM [facility] REPOSITORY TYPE CODE TESTS RESULT OUT OF REFERENCE UNITS RANGE LAB L501.080 70-110 mg/dL High BEDSIDE GLU 140 Result Comment: MANAGEMENT OF PATIENT CARE PER NURSING PROTOCOL Performed By: #### L501.080 #### [facility] [address] [place], [place] [address] BEDSIDE GLUCOSE Collected: 10/13/2017 Status: F Source: CELINA 4:52 PM [facility] REPOSITORY TYPE CODE TESTS RESULT OUT OF REFERENCE UNITS RANGE LAB L501.080 70-110 mg/dL High BEDSIDE GLU 117 Result Comment: MANAGEMENT OF PATIENT CARE PER NURSING PROTOCOL Performed By: #### L501.080 #### [facility] [address] [place], [place] [address] 12 LEAD ELECTROCARDIOGRAM Observed: 10/13/2017 Status: F Source: CELINA 2:36 PM [facility] REPOSITORY [facility] [address] [place] [address] 12 Lead EKG 10/08/17 1715 MR#: [id number] Acct: [id number] Name: EMILEE BASSETT Rep #: [id number] : 1965 52 From: Jose J Carballo MD Attending Dr: Florence Hendrickson MD Status: DIS IN Ordering Dr: Florence Hendrickson MD Date: 10/08/17 Location: [facility] Sex: F C Admitted: 10/04/17 Test Reason : RYTHMN CHANGE Blood Pressure : / mmHG Vent. Rate : 074 BPM Atrial Rate : 074 BPM P-R Int : 156 ms QRS Dur : 094 ms QT Int : 470 ms P-R-T Axes : 047 078 044 degrees QTc Int : 521 ms Normal sinus rhythm Prolonged QT Abnormal ECG Confirmed by JOSE J CARBALLO MD ([id number]), order editor VICK BAH (56) on 10/13/2017 2:36:05 PM Referred By: MIK Confirmed By:JOSE J CARBALLO MD 10/13/17 143 Date Jose J Carballo MD CC: Florence Hendrickson MD; Valeria Mace MD Signed 12 LEAD ELECTROCARDIOGRAM Observed: 10/13/2017 Status: F Source: YOLANDA 2:36 PM [facility] REPOSITORY [facility] [address] [place] [address] 12 Lead EKG 10/08/17 1458 MR#: [id number] Acct: [id number] Name: EMILEE BASSETT Rep #: [id number] : 1965 52 From: Jose J Carballo MD Attending Dr: Florence Hendrickson MD Status: DIS IN Ordering Dr: Florence Hendrickson MD Date: 10/08/17 Location: [facility] Sex: F C Admitted: 10/04/17 Test Reason : TACHYCARDIA Blood Pressure : / mmHG Vent. Rate : 111 BPM Atrial Rate : 267 BPM P-R Int : 000 ms QRS Dur : 096 ms QT Int : 394 ms P-R-T Axes : 000 073 031 degrees QTc Int : 535 ms Atrial fibrillation Nonspecific ST abnormality Prolonged QT Abnormal ECG When compared with ECG of 03-OCT-2017 23:18, Atrial fibrillation has replaced Sinus rhythm Confirmed by JOSE J CARBALLO MD ([id number]), order editor VICK BAH (56) on 10/13/2017 2:36:31 PM Referred By: MIK Confirmed By:JOSE J CARBALLO MD 10/13/17 143 Date Jose J Carballo MD CC: Florence Hendrickson MD; Valeria Mace MD Signed BEDSIDE GLUCOSE Collected: 10/13/2017 Status: F Source: YOLANDA 10:48 AM [facility] REPOSITORY TYPE CODE TESTS RESULT OUT OF REFERENCE UNITS RANGE LAB L501.080 70-110 mg/dL High BEDSIDE GLU 136 Result Comment: MANAGEMENT OF PATIENT CARE PER NURSING PROTOCOL Performed By: #### L501.080 #### [facility] [address] [place] [address] BEDSIDE GLUCOSE Collected: 10/13/2017 Status: F Source: YOLANDA 6:29 AM [facility] REPOSITORY TYPE CODE TESTS RESULT OUT OF RANGE REFERENCE UNITS LAB L501.080 70-110 mg/dL Normal BEDSIDE GLU 107 Result Comment: MANAGEMENT OF PATIENT CARE PER NURSING PROTOCOL Performed By: #### L501.080 #### [facility] [address] [place] [address] BEDSIDE GLUCOSE Collected: 10/12/2017 Status: F Source: YOLANDA 8:48 PM [facility] REPOSITORY TYPE CODE TESTS RESULT OUT OF REFERENCE UNITS RANGE LAB L501.080 70-110 mg/dL High BEDSIDE GLU 135 Result Comment: MANAGEMENT OF PATIENT CARE PER NURSING PROTOCOL Performed By: #### L501.080 #### [facility] [address] [place] [address] BEDSIDE GLUCOSE Collected: 10/12/2017 Status: F Source: YOLANDA 4:43 PM [facility] REPOSITORY TYPE CODE TESTS RESULT OUT OF REFERENCE UNITS RANGE LAB L501.080 70-110 mg/dL High BEDSIDE GLU 142 Result Comment: MANAGEMENT OF PATIENT CARE PER NURSING PROTOCOL Performed By: #### L501.080 #### [facility] [address] [place] [address] BEDSIDE GLUCOSE Collected: 10/12/2017 Status: F Source: YOLANDA 11:36 AM [facility] REPOSITORY TYPE CODE TESTS RESULT OUT OF REFERENCE UNITS RANGE LAB L501.080 70-110 mg/dL High BEDSIDE GLU 134 Result Comment: Dr Ramos Followed MANAGEMENT OF PATIENT CARE PER NURSING PROTOCOL Performed By: #### L501.080 #### [facility] [address] [place], [place] [address] BEDSIDE GLUCOSE Collected: 10/12/2017 Status: F Source: YOLANDA 6:17 AM [facility] REPOSITORY TYPE CODE TESTS RESULT OUT OF REFERENCE UNITS RANGE LAB L501.080 70-110 mg/dL High BEDSIDE GLU 124 Result Comment: MANAGEMENT OF PATIENT CARE PER NURSING PROTOCOL Performed By: #### L501.080 #### [facility] [address] [place] [address] BEDSIDE GLUCOSE Collected: 10/11/2017 Status: F Source: YOLANDA 8:53 PM [facility] REPOSITORY TYPE CODE TESTS RESULT OUT OF REFERENCE UNITS RANGE LAB L501.080 70-110 mg/dL High BEDSIDE GLU 136 Result Comment: MANAGEMENT OF PATIENT CARE PER NURSING PROTOCOL Performed By: #### L501.080 #### [facility] [address] [place], [place] [id number] BEDSIDE GLUCOSE Collected: 10/11/2017 Status: F Source: YOLANDA 4:41 PM [facility] REPOSITORY TYPE CODE TESTS RESULT OUT OF REFERENCE UNITS RANGE LAB L501.080 70-110 mg/dL High BEDSIDE GLU 156 Result Comment: MANAGEMENT OF PATIENT CARE PER NURSING PROTOCOL Performed By: #### L501.080 #### [facility] [address] [place], [place] [id number] BEDSIDE GLUCOSE Collected: 10/11/2017 Status: F Source: YOLANDA 11:04 AM [facility] REPOSITORY TYPE CODE TESTS RESULT OUT OF REFERENCE UNITS RANGE LAB L501.080 70-110 mg/dL High BEDSIDE GLU 112 Result Comment: Dr Orders Followed MANAGEMENT OF PATIENT CARE PER NURSING PROTOCOL Performed By: #### L501.080 #### [facility] [address] [place] [address] BEDSIDE GLUCOSE Collected: 10/11/2017 Status: F Source: YOLANDA 6:29 AM [facility] REPOSITORY TYPE CODE TESTS RESULT OUT OF REFERENCE UNITS RANGE LAB L501.080 70-110 mg/dL High BEDSIDE GLU 114 Result Comment: MANAGEMENT OF PATIENT CARE PER NURSING PROTOCOL Performed By: #### L501.080 #### [facility] [address] [place] [address] BEDSIDE GLUCOSE Collected: 10/10/2017 Status: F Source: YOLANDA 9:23 PM [facility] REPOSITORY TYPE CODE TESTS RESULT OUT OF REFERENCE UNITS RANGE LAB L501.080 70-110 mg/dL High BEDSIDE GLU 158 Result Comment: MANAGEMENT OF PATIENT CARE PER NURSING PROTOCOL Performed By: #### L501.080 #### [facility] Point of Care [address] [place] [address] BEDSIDE GLUCOSE Collected: 10/10/2017 Status: F Source: [place]OL[place] 8:41 PM [facility] REPOSITORY TYPE CODE TESTS RESULT OUT OF REFERENCE UNITS RANGE LAB L501.080 70-110 mg/dL High BEDSIDE GLU 149 Result Comment: MANAGEMENT OF PATIENT CARE PER NURSING PROTOCOL Performed By: #### L501.080 #### [facility] Point of Care [address] [place] [address] BEDSIDE GLUCOSE Collected: 10/10/2017 Status: F Source: YOL[place]DA 4:58 PM [facility] REPOSITORY TYPE CODE TESTS RESULT OUT OF RANGE REFERENCE UNITS LAB L501.080 70-110 mg/dL Normal BEDSIDE GLU 102 Result Comment: MANAGEMENT OF PATIENT CARE PER NURSING PROTOCOL Performed By: #### L501.080 #### [facility] Point of Care [address] [place] [address] BEDSIDE GLUCOSE Collected: 10/10/2017 Status: F Source: YOL[place]DA 10:42 AM [facility] REPOSITORY TYPE CODE TESTS RESULT OUT OF REFERENCE UNITS RANGE LAB L501.080 70-110 mg/dL High BEDSIDE GLU 153 Result Comment: Dr Ramos Followed MANAGEMENT OF PATIENT CARE PER NURSING PROTOCOL Performed By: #### L501.080 #### [facility] Point of Care [address] [place] [address] BEDSIDE GLUCOSE Collected: 10/10/2017 Status: F Source: Y[place] 6:32 AM [facility] REPOSITORY TYPE CODE TESTS RESULT OUT OF REFERENCE UNITS RANGE LAB L501.080 70-110 mg/dL High BEDSIDE GLU 117 Result Comment: MANAGEMENT OF PATIENT CARE PER NURSING PROTOCOL Performed By: #### L501.080 #### [facility] Point of Care [address] [facility] [address] [place], [place] [address] CBC W/DIFF, AUTOMATED Collected: 10/10/2017 Status: F Source: [place] 5:15 AM [facility] REPOSITORY TYPE CODE TESTS RESULT OUT OF RANGE REFERENCE UNITS LAB L100.1000 4.4-11.0 K/mm3 Normal WBC 9.1 LAB L100.1200 4.2-5.4 M/mm3 Low RBC 3.61 LAB L100.1300 12.0-15.0 g/dl Low HGB 9.0 LAB L100.1400 37-47 % Low HCT 33.3 LAB L100.1500 81-99 fL Normal MCV 92.2 LAB L100.1600 27.0-32.0 pg Low MCH 24.9 LAB L100.1700 32-36 g/gl Low MCHC 27.0 LAB L100.1810 11.6-14.6 % High RDW CV 17.2 LAB L100.1820 35.1-43.9 fl High RDW SD 58.8 LAB L100.1900 150-450 K/mm3 Normal PLT 170 LAB L100.2000 6.2-12.0 fl Normal MPV 9.6 LAB L100.2100 47-70 % High NEUT% 74.9 LAB L100.2200 19-41 % Low LY% 12.8 LAB L100.2300 0-10 % Normal MONO% 5.6 LAB L100.2400 0-5 % High EO% 6.4 LAB L100.2500 0-1 % Normal BASO% 0.1 LAB L100.2550 0.0-0.9 % Normal IM GRAN % 0.200 Result Comment: IG% - Immature Granulocytes (promyelocytes, myelocytes and metamyelocytes) > 1% indicates that a LEFT SHIFT is Present. LAB L100.2620 2.0-7.7 X10 3/uL Normal Absolute Neut 6.8 LAB L100.2720 0.83-4.51 X10 3/ul Normal Absolute Lymph 1.16 Performed By: #### L100.0100 #### [facility] [address] [facility] [address] [place], [place], [address] BASIC METABOLIC Collected: 10/10/2017 Status: F Source: [place]DA PROFILE (BMP) 5:15 AM [facility] REPOSITORY TYPE CODE TESTS RESULT OUT OF RANGE REFERENCE UNITS LAB L501.0100 74-106 mg/dL High GLU 119 Result Comment: Fasting Glucose result from 100 to 125 mg/dL suggests IMPAIRED HOMEOSTASIS per A.D.A. criteria. Please note revised GLUCOSE reference range effective 2017. LAB L501.1000 7-18 mg/dL High BUN 44 LAB L501.1100 0.55-1.02 mg/dL High CREAT,SERUM 1.08 Result Comment: The validity of the calculated GFR AND GFRAA in patients over 70 years has not been determined. Clinical correlation is essential. LAB L501.1110 >60 mL/min Low EST GFR 57 Result Comment: Non- GFR Calc LAB L501.1115 >60 mL/min Normal EST GFR - AA 68 Result Comment: GFR Calc LAB L501.1255 ml/min Normal Estimated CRCL 43.77 LAB L501.1300 10-20 RATIO High BUN/CRE 40.7 LAB L501.2200 8.5-10 mg/dL Low .1 CA 8.2 LAB L501.5300 136-14 mmol/L Normal 5 NA 140 LAB L501.5600 3.5-5. mmol/L Normal 1 K 3.7 LAB L501.5900 98-107 mmol/L Low CL 94 LAB L501.6100 21.0-3 mmol/L High 2.0 CO2 42.0 LAB L501.6200 5-15 Low GAP 4 Performed By: #### L500.2500 #### [facility] [address] [place], [place], [id number] BEDSIDE GLUCOSE Collected: 10/09/2017 Status: F Source: [place] 8:59 PM [facility] REPOSITORY TYPE CODE TESTS RESULT OUT OF REFERENCE UNITS RANGE LAB L501.080 70-110 mg/dL High BEDSIDE GLU 154 Result Comment: MANAGEMENT OF PATIENT CARE PER NURSING PROTOCOL Performed By: #### L501.080 #### [facility] Point of Care [address] [facility] [place], [place] [id number] HISTORY AND PHYSICAL Observed: 10/09/2017 Status: F Source: [place] EXAM 8:50 PM [facility] REPOSITORY [facility] Medical Records Department [address] [place] [address] History and Physical 10/09/172024 MR#: [id number] Acct: [id number] Name: EMILEE BASSETT Rep #: [id number] : 1965 52 From: Jovani Branch MD PCP: Rodri RUBI,Valeria Status: ADM IN Location: [place] [address] Problem List (1) Shortness of breath Status: Acute (2) Acute on chronic diastolic heart failure Status: Acute (3) Acute bronchitis Status: Acute (4) Atrial fibrillation with RVR Status: Acute (5) Otitis externa Status: Acute (6) Metabolic alkalosis Status: Acute (7) Blood in stool Status: Acute (8) Morbid obesity Status: Chronic (9) Anemia Status: Chronic (10) GERD (gastroesophageal reflux disease) Status: Chronic (11) Irritable bowel syndrome Status: Chronic (12) Overactive bladder Status: Chronic (13) Type 2 diabetes mellitus Status: Chronic Qualifiers: Comment: HgbA1c 06/2016 6.5%. (14) Asthma Status: Chronic (15) HTN (hypertension) Status: Chronic Qualifiers: (16) HLD (hyperlipidemia) Status: Chronic Qualifiers: (17) Spinal stenosis Status: Chronic Qualifiers: (18) RICKI (obstructive sleep apnea) Status: Chronic (19) Lymphedema Status: Chronic History of Present Illness Date of Admission: 10/09/17 Chief Complaint: Here for rehabilitation, strengthening, prior to discharge home with spouse. The patient is a 52 year old Female with below past medical history presented to [facility] Emergency Department 10/04/2017 with shortness of breath. 10/03/2017 EKG normal sinus rhythm, prolonged QT. Shortness of breath x 1 week, worsening. Cough productive of brown yellow sputum. 4 Liters oxygen at home. Hemoglobin 8.1, Troponin negative. Chest X-ray shows vascular congestion, possible infiltrate. Aerosols, Solu-Medrol given. Lasix, Antibiotics given. 10/04/2017 Admit to Hospital. Oxygen, BiPAP for respiratory failure. Metoprolol, IV Lasix for heart failure. Lasix 40MG IV Q12 for heart failure. Influenza test negative. IV Zosyn, Doxycycline for bronchitis. 10/06/2017 Echo Normal LV size. Mild concentric LVH. LVSF normal. EF 60%. 10/08/2017 Chest X-ray stable cardiomegaly, improving vascular congestion. Patient developed metabolic alkalosis, acute kidney injury from diuresis. Treated with acetazolamide, gentle hydration. Lasix 20MG BID for acute on chronic diastolic heart failure. Cardizem for new onset atrial fibrillation with RVR, anticoagulation held due to heme positive stools. Metabolic alkalosis treated with Diamox. Left otitis externa treated with Cortisporin OTIC. EGD, Colonoscopy as outpatient for Heme positive stool. 10/09/2017 Admit to TCU for rehabilitation, strengthening, prior to discharge home with spouse. Past Medical History Past Medical History (Chronic Problems): Chronic Problems acute on chronic blood loss anemia (Chronic) Morbid obesity (Chronic) Anemia (Chronic) GERD (gastroesophageal reflux disease) (Chronic) Irritable bowel syndrome (Chronic) Overactive bladder (Chronic) Wide-complex tachycardia (Chronic) Chronic diastolic CHF (congestive heart failure) (Chronic) Type 2 diabetes mellitus (Chronic) HgbA1c 06/2016 6.5%. 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) Lymphedema (Chronic) Venous insufficiency (chronic) (peripheral) (Chronic) Allergies latex Allergy (Verified 08/05/17 21:19) Rash levofloxacin [From Levaquin] Adverse Reaction (Verified 08/05/17 21:19) SPEEDS UP MY HEART AND SHUTS DOWN MY KIDNEYS mushrooms Allergy (Uncoded 08/05/17 21:19) Anaphylaxis STRAWBERRIES Allergy (Uncoded 08/05/17 21:19) Rash Home Medications: Ambulatory Orders Medication Instructions Recorded Albuterol Sulfate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 Denies: Numbness, Tingling, Focal weakness Psychiatric: Reports: Anxiety, Depression. Denies: Homicidal Ideations, Suicidal Ideations Hematologic/ Lymphatic: Denies: Easy Bruising, Easy Bleeding VTE Information - Inpt Only VTE Present on Admission: No VTE Mechan Device Prophylaxis: SCD's VTE Pharm Prophylaxis ordered?: Yes Patient Problems: Active and Suspected Problems Acute and chronic respiratory failure with hypoxia (Acute) Acute on chronic diastolic heart failure (Acute) Acute bronchitis with asthma with acute exacerbation (Acute) - Physical Exam General: Alert, Oriented x3, Cooperative HEENT: Atraumatic, PERRLA, EOMI, Normocephalic Neck: Supple, No JVD, Negative Carotid Bruits Lungs: Diminished, Short of Breath, Tachypneic, Wheezes Cardiovascular: Regular rate, Regular Rhythm, Normal S1, Normal S2, No murmurs Abdomen: Bowel Sounds Present, Soft, Non Tender, Non-Distended Extremities: Capillary Refill Less than 3 Seconds, Edema Skin: - - Dry skin with scaling. Bilateral lower extremity lymphedema Musculoskeletal: No Tenderness to Palpation of Joints or Extremities, Arthritic Changes Neurological: Cranial nerves II-XII grossly intact, Neuro grossly intact Psych/Mental Status: Normal Affect, Appropriate Vital Signs Temp Pulse Resp BP Pulse Ox 98.9 F 88 26 H 173/105 H 93 10/04/17 00:51 10/04/17 00:51 10/04/17 00:51 10/04/17 00:51 10/04/17 00:51 Oxygen Flow Rate (L/min) 4.5 Oxygen Delivery Method Nasal Cannula Assessment/Plan Active and Suspected Problems Acute and chronic respiratory failure with hypoxia (Acute) Acute on chronic diastolic heart failure (Acute) Acute bronchitis with asthma with acute exacerbation (Acute) The patient is a 52 year old F with multiple comorbidities as listed above including chronic diastolic heart failure, asthma, obstructive sleep apnea and recent admission for pneumonia in July 2017 came to ER with progressive worsening of shortness of breath for 1 week to the point that that she short of breath even at rest. She has orthopnea, dyspnea on exertion and sleeps on recliner. She also has worsening of cough which is moist and brings up brown thick consistency phlegm. Denies chest pain. Denies fever or chills. He has 2 L of oxygen during day and 4 L at night. Bilateral lower extremity lymphedema, chronic in nature which is worse now. Further assess is not taking Lasix because of kidney dysfunction. In ED, she was found tachypneic, hypoxic 94% on 4.5 off oxygen, respiratory rate 23 and blood pressure was 173/105. BNP elevated. Chest x-ray shows central vascular congestion and bilateral perihilar and basilar infiltrate/atelectasis. 1. Acute on chronic hypoxic respiratory failure secondary to CHF exacerbation and possible asthma exacerbation: Patient is being admitted in PCU. Oxygen therapy as per protocol. BiPAP as needed 2. Acute on chronic diastolic heart failure: As per echo in June 2016, left ventricular systolic function lower limit of normal, EF 53%. Moderately dilated right ventricle with mild global systolic dysfunction. Left atrium mildly enlarged. Right atrium mildly enlarged. RVSP 57 images suggestive of moderate pulmonary hypertension with moderate TR. on IV Lasix, metoprolol. EKG shows normal sinus rhythm at 76 bpm with prolonged QTC 537 ms. Cycle cardiac enzymes. On Lasix 40 mg IV every 12 hourly. Metoprolol succinate 25 mg daily, and lisinopril 5 mg daily. If symptoms does not improve, might repeat 2D echo. Monitor intake and output. Fluid restriction 1500 mL. 3. Acute asthma exacerbation: On IV Solu-Medrol, bronchodilator [id number], incentive spirometry, Mucinex and chest physiotherapy. 4. Possible bibasilar healthcare associated pneumonia/moderate acute bronchitis: Patient was discharged on August 08, 2017. Start on IV Zosyn and doxycycline. Zithromax was discontinued because of prolonged QTC. Influenza test negative. Follow- up blood cultures, urinary antigen, and a sputum culture. 5. Diabetes mellitus type 2: Last A1c in on July 29, 2017 5.3%. Accu-Chek before meals and at bedtime and cover with NovoLog sliding scale. Recent acute on chronic blood loss anemia secondary to lower GI bleed and mild thrombocytopenia: Currently hemoglobin is 8.1 g percent. Platelet count is 126. Stool for occult blood ordered. 6. Multiple comorbidities include hypertension, dyslipidemia, lumbar spinal stenosis, obstructive sleep apnea, onychomycosis, moderate severe obesity and chronic bilateral lower extremity lymphedema with venous insufficiency. DVT prophylaxis: Bilateral DAVID hose. One dose of Lovenox 40 mg subcu ordered. If his stool for occult blood negative, and hemoglobin is stable; can continue pharmacological prophylaxis otherwise contraindicated Microbiology Past 72 Hours 10/03/17 23:07 Mucosa - Nose Influenza Types A,B Direct FA (JENNIFER) - Final Laboratory Results 10/03/17 23:40: WBC 6.9, RBC 3.16 L, Hgb 8.1 L, Hct 29.5 L, MCV 93.4, MCH 25.6 L, MCHC 27.5 L, RDW 16.6 H, RDW Differential 57.3 H, Plt Count 126 L, MPV 8.9, Immature Gran % (Auto) 0.400, Neut % (Auto) 70.4 H, Lymph % (Auto) 14.7 L, Culberson % (Auto) 6.0, Eos % (Auto) 8.4 H, Baso % (Auto) 0.1, Absolute Neuts (auto) 4.8, Absolute Lymphs (auto) 1.01, Total Counted Not Reportable 10/03/17 23:40: Sodium 144, Potassium 3.7, Chloride 106, Carbon Dioxide 37.0 H, Anion Gap 1 L, BUN 8, Creatinine 0.76, Estim Creat Clear Calc 62.20, Est GFR (MDRD) Af Amer 103, Est GFR (MDRD) Non-Af 85, BUN/Creatinine Ratio 10.5, Glucose 120 H, Calcium 8.1 L, Troponin I < 0.02 10/03/17 23:40: B-Natriuretic Peptide 221.3 H Clinical Impression(s) from Imaging Studies Chest X-Ray 10/03/17 23:00 IMPRESSION: Central vascular congestion and probable pulmonary arterial hypertension. Cannot exclude bilateral perihilar and basilar atelectasis or infiltrate. Code Visit Inpatient E AND M: [id number] Init Hosp L3 10/04/17 0143 <Electronically signed by Keshawn Oakes MD> Date Keshawn Oakes MD Cosigner Signature: Date (if applicable) CC: Valeria Mace MD; Keshawn Oakes MD Signed CHEST 1 VIEW Observed: 10/04/2017 Status: F Source: YOLANDA (PORTABLE) 1:23 AM [facility] REPOSITORY [facility] Imaging Services [address] [place] [address] Chest 1 View (Portable) MR#: [id number] Acct: [id number] Name: EMILEE BASSETT Rep #: [id number] : 1965 F 52 From: Guy Reynolds MD PCP: Valeria Mace MD Status: ADM IN Study: Chest 1 View (Portable) Date of Exam: 10/04/17 Exam# [id number] Ordering Dr: Keshawn Oakes MD STUDY: X-RAY CHEST REASON FOR EXAM: Female, 52 years old. Shortness of breath. CHF exacerbation. TECHNIQUE: Single frontal view of the chest. COMPARISON: October 03, 2017. FINDINGS: There are monitoring devices. Interstitial and groundglass opacities of the lungs with worsening. There is no demonstrated pleural abnormality. There is mild cardiac enlargement. Normal mediastinum and negra. There is prominence of the pulmonary hilar arteries and peripheral pulmonary arteries, consistent with congestive heart failure (CHF). Normal visualized aortic arch and descending thoracic aorta. Normal visualized thoracic spine. Normal visualized ribs, clavicles, and shoulders. There is no demonstrated abnormality of the visualized soft tissue structures of the upper abdomen. RAD/Chest 1 View (Portable) IMPRESSION: CHF with edema and vascular prominence. Electronically Signed: Guy Reynolds MD at 10:33 EDT , Service support , CC: Valeria Mace MD; Keshawn Oakes MD Shank Rander: Signed EMERGENCY DEPARTMENT Observed: 10/04/2017 Status: F Source: YOLANDA SUMMARY 1:02 AM [facility] REPOSITORY [facility] Medical Records Department [address] [place] [address] Emergency Department Summary 10/04/17 0059 MR#: [id number] Acct: [id number] Name: EMILEE BASSETT Rep #: [id number] : 1965 52 From: Frances Sexton PCP: Valeria Mace MD Status: ADM IN - ER Visit Summary Date of Service: 10/04/17 Chief Complaint: [Shortness of breath] History of Present Illness: The patient is a 52 F [who presents the emergency department with shortness of breath 1 week. It has been getting worse. She is coughing up brown yellow sputum. She denies any fevers but states she is very weak. She wears 4 L of oxygen at home and has been wearing it all the time although she usually only wears it at night. She has CHF asthma. This feels exactly like when she had pneumonia back in July. She has had some mild increase in her swelling.] Physical Examination: [] 94% on 4 L WN WD obese PERRL EOMI MMM NECK supple and nontender, no masses RRR no murmur rub or gallop, 3+ lower extremity edema that symmetric bilaterally symmetric radial pulses No distress because of tachypnea and labored respirations, she has diffuse wheezing and rhonchi rhonchi ABDOMEN is soft and nontender, normal bowel sounds, no distension, no rebound or guarding SKIN is warm and dry no rashes Alert and Oriented x3, CN II-XII in tact, no motor or sensory deficits, diffusely weak No lymphadenopathy Test Results: [] Emergency Department Course and Treatment: [EKG and troponin were unremarkable. Patient is anemic at 8.1. Chest x-ray was consistent with vascular congestion and possible underlying infiltrate. Patient was given breathing treatments and Solu- Medrol on arrival. Because of her gain in weight and dyspnea with CHF on chest x-ray Lasix was given. I also treated her for possible underlying pneumonia given that she has had productive cough and symptoms consistent with pneumonia she has had in the past. She will be admitted to the hospital.] Treatment Plan: [] Disposition: [Admit] Impression: [. Dyspnea 2. CHF 3. Pneumonia 4. Bronchospasm] This note was generated with Beeplation software. It may contain incorrect words, spelling, and punctuation that were not noted in review of the chart prior to signing ED Disposition - Plan for ED Patient: Chief Complaint: Shortness of Breath What to do if you have Problems For any increased pain, shortness of breath, bleeding, nausea or vomiting, chest pain, or any unexpected problems, contact your Primary Care Provider. Call [facility] ([phone]) or report to the closest Emergency Room. Call 911 if necessary. 10/04/17 0102 <Electronically signed by Frances Sexton > Date Frances Sexton Cosigner Signature (If Indicated): Date CC: Valeria Mace MD Observed: 10/04/2017 Status: F Source: CELINA CULTURE, BLOOD (WB) 12:36 AM [facility] REPOSITORY BC No growth in 5 days. Performed By: #### M200.1000 #### [facility] [address] [place], [address] CBC W/DIFF, AUTOMATED Collected: 10/03/2017 Status: F Source: CELINA 11:40 PM [facility] REPOSITORY TYPE CODE TESTS RESULT OUT OF RANGE REFERENCE UNITS LAB L100.1000 4.4-11.0 K/mm3 Normal WBC 6.9 LAB L100.1200 4.2-5.4 M/mm3 Low RBC 3.16 LAB L100.1300 12.0-15.0 g/dl Low HGB 8.1 LAB L100.1400 37-47 % Low HCT 29.5 LAB L100.1500 81-99 fL Normal MCV 93.4 LAB L100.1600 27.0-32.0 pg Low MCH 25.6 LAB L100.1700 32-36 g/gl Low MCHC 27.5 LAB L100.1810 11.6-14.6 % High RDW CV 16.6 LAB L100.1820 35.1-43.9 fl High RDW SD 57.3 LAB L100.1900 150-450 K/mm3 Low PLT 126 LAB L100.2000 6.2-12.0 fl Normal MPV 8.9 LAB L100.2100 47-70 % High NEUT% 70.4 LAB L100.2200 19-41 % Low LY% 14.7 LAB L100.2300 0-10 % Normal MONO% 6.0 LAB L100.2400 0-5 % High EO% 8.4 LAB L100.2500 0-1 % Normal BASO% 0.1 LAB L100.2550 0.0-0.9 % Normal IM GRAN % 0.400 Result Comment: IG% - Immature Granulocytes (promyelocytes, myelocytes and metamyelocytes) > 1% indicates that a LEFT SHIFT is Present. LAB L100.2620 2.0-7.7 X10 3/uL Normal Absolute Neut 4.8 LAB L100.2720 0.83-4.51 X10 3/ul Normal Absolute Lymph 1.01 Performed By: #### L100.0100 #### [facility] [address] [place], [address] BASIC METABOLIC Collected: 10/03/2017 Status: F Source: CELINA PROFILE ([facility]) 11:40 PM [facility] REPOSITORY Order Comment: 'TROP' Serial specimen #1, #2, #3, or #4: 1 TYPE CODE TESTS RESULT OUT OF RANGE REFERENCE UNITS LAB L501.0100 74-106 mg/dL High GLU 120 Result Comment: Fasting Glucose result from 100 to 125 mg/dL suggests IMPAIRED HOMEOSTASIS per A.D.A. criteria. Please note revised GLUCOSE reference range effective 2017. LAB L501.1000 7-18 mg/dL Normal BUN 8 LAB L501.1100 0.55-1.02 mg/dL Normal CREAT,SERUM 0.76 Result Comment: The validity of the calculated GFR AND GFRAA in patients over 70 years has not been determined. Clinical correlation is essential. LAB L501.1110 >60 mL/min Normal EST GFR 85 Result Comment: Non- GFR Calc LAB L501.1115 >60 mL/min Normal EST GFR - AA 103 Result Comment: GFR Calc LAB L501.1255 ml/min Normal Estimated CRCL 62.20 LAB L501.1300 10-20 RATIO Normal BUN/CRE 10.5 LAB L501.2200 8.5-10 mg/dL Low .1 CA 8.1 LAB L501.5300 136-14 mmol/L Normal 5 NA 144 LAB L501.5600 3.5-5. mmol/L Normal 1 K 3.7 LAB L501.5900 98-107 mmol/L Normal CL 106 LAB L501.6100 21.0-3 mmol/L High 2.0 CO2 37.0 LAB L501.6200 5-15 Low GAP 1 Performed By: #### L500.2500, L501.4010 #### [facility] [address] [place], [address] TROPONIN-I Collected: 10/03/2017 Status: F Source: CELINA 11:40 PM [facility] REPOSITORY Order Comment: 'TROP' Serial specimen #1, #2, #3, or #4: 1 TYPE CODE TESTS RESULT OUT OF RANGE REFERENCE UNITS LAB L501.4010 <0.06 ng/mL Normal < 0.02 TROPONIN-I Result Comment: TROPONIN-I EXPECTED VALUES <0.05 NEGATIVE 0.06 - 0.59 AT RISK OF MN > OR = 0.60 SUGGEST MN Performed By: #### L500.2500, L501.4010 #### [facility] [address] [place], [place], [address] BNP,B-TYPE NATRIURETIC Collected: 10/03/2017 Status: F Source: CELINA PEPTIDE 11:40 PM [facility] REPOSITORY TYPE CODE TESTS RESULT OUT OF RANGE REFERENCE UNITS LAB L503.6620 0-100 pg/mL High B-TYPE 221.3 PAULINO PEP Performed By: #### L503.6620 #### [facility] [address] [place], [place], [address] MAGNESIUM Collected: 10/03/2017 Status: F Source: CELINA 11:40 PM [facility] REPOSITORY TYPE CODE TESTS RESULT OUT OF RANGE REFERENCE UNITS LAB L501.5200 1.6-2.6 mg/dL Normal MG 1.9 Performed By: #### L501.5200 #### [facility] [address] [place], [address] Observed: 10/03/2017 Status: F Source: CELINA INFLUENZA A+B (RAPID 11:07 PM [facility] SONDRA) REPOSITORY FLU A/B Rapid Negative test results should be confirmed by culture. Order Rapid Viral Culture for Influenzae A+B ([id number]) if clinically indicated. Influenza Ag, Direct Presumptive NEGATIVE for Influenza A/B Antigen (See Note) Performed By: #### M101.0101 #### [facility] [address] [place], [address] CHEST 1 VIEW Observed: 10/03/2017 Status: F Source: CELINA (PORTABLE) 10:59 PM [facility] REPOSITORY [facility] Imaging Services [address] [place] [address] Chest 1 View (Portable) MR#: [id number] Acct: [id number] Name: DANYELLEEMILEE S Rep #: [id number] : 1965 F 52 From: Alejandro Tao MD PCP: Rodri RUBI,Valeria Status: REG ER Study: Chest 1 View (Portable) Date of Exam: 10/03/17 Exam# [id number] Ordering Dr: Frances Sexton STUDY: X-RAY CHEST REASON FOR EXAM: Female, 52 years old. Cough. TECHNIQUE: Single AP portable view of the chest. COMPARISON: 08/05/2017. FINDINGS: Normal lung volumes. Possible mild atelectasis or infiltrates in the perihilar regions and lung bases versus chronic congestion. There is prominent central vascular congestion and probable pulmonary arterial hypertension. No gross effusions. Mild to moderate cardiomegaly. Normal visualized thoracic spine. Normal visualized ribs, clavicles, and shoulders. There is no demonstrated abnormality of the visualized soft tissue structures of the upper abdomen. RAD/Chest 1 View (Portable) IMPRESSION: Central vascular congestion and probable pulmonary arterial hypertension. Cannot exclude bilateral perihilar and basilar atelectasis or infiltrate. Electronically Signed: Alejandro Tao MD at 23:16 EDT , Service support , CC: Frances Sexton; Valeria Mace MD Shank Rander: Signed OPERATIVE REPORT Observed: 08/24/2017 Status: F Source: CELINA 11:20 AM [facility] REPOSITORY [facility] Medical Records Department [address] [place] [address] Operative Report 08/11/17 1258 MR#: [id number] Acct: [id number] Name: EMILEE BASSETT Rep #: [id number] : 1965 52 From: Jaylene Frias MD PCP: Valeria Mace MD Status: DIS IN Y Location: [place] [address] Report of Operation Date of Procedure: 08/07/17 Pre-Operative Diagnosis: anemia Post-Operative Diagnosis: same Surgery/Procedure Performed:: esophagogastroduodenoscopy Description of Surgical Findings:: no gross evidence of blood loss source Type of Anesthesia:: MAC Anesthesiologist: Marquis Murray Specimen's removed: none Estimated Blood Loss (mL): none Fluids Replaced: 200 cc RL Description of Procedure: After informed consent was given, the patient was brought to the endoscopy suite and placed in the upright sitting position. Appropriate cardiac, blood pressure, and pulse oximetry monitoring was placed. Appropriate time out protocol was followed. After stable vital signs were noted, the patient was given intravenous conscious sedation. Of note, the patient is at high risk due to her respiratory insufficiency and her body habitus. The posterior pharynx was sprayed with lidocaine spray times two and a bite block was placed. The upper endoscope was lubricated and inserted into the patient s mouth and then carefully placed into the patient s throat. The patient was asked to swallow and the endoscope was then easily advanced into the patient s esophagus. The endoscope was further advanced down into the patient s stomach, then past the pylorus, then past the duodenal bulb and then to the second portion of the duodenum. There were no lesions noted in the duodenum. The endoscope was then retracted back into the stomach. A retroflex view of the stomach revealed no evidence of any masses. No ulcers, no strictures, no suspicious lesions were noted. No signs of bleeding were noted. The endoscope was retracted into the esophagus, where any insufflated gas in the stomach was aspirated out. The esophagus was normal. The upper endoscope was removed intact. Patient tolerated procedure. - Complications none noted - Admit VTE Documentation VTE Present on Admission: Yes VTE Mechan Device Prophylaxis: SCD's 08/24/17 1120 <Electronically signed by Jaylene Frias MD> Date Jaylene Frias MD CC: Jaylene Frias MD; Valeria Mace MD; Emigdio Alexander MD Signed BEDSIDE GLUCOSE Collected: 08/08/2017 Status: F Source: CELINA 11:06 AM [facility] REPOSITORY TYPE CODE TESTS RESULT OUT OF REFERENCE UNITS RANGE LAB L501.080 70-110 mg/dL High BEDSIDE GLU 111 Result Comment: Dr Ramos Followed MANAGEMENT OF PATIENT CARE PER NURSING PROTOCOL Performed By: #### L501.080 #### [facility] Point of Care [address] [place] [address] DISCHARGE SUMMARY Observed: 08/08/2017 Status: F Source: CELINA 9:06 AM [facility] REPOSITORY [facility] Medical Records Department [address] [place] [address] Discharge Summary 08/08/17 0903 MR#: [id number] Acct: [id number] Name: EMILEE BASSETT Rep #: [id number] : 1965 52 From: Sebastien Smith MD PCP: Valeria Mace MD Status: ADM IN Y Location: [place] [address] Discharge Date and Diagnosis - Problem List Patient Problems: Active and Suspected Problems acute on chronic blood loss anemia (Acute) CAP (community acquired pneumonia) (Acute) Lower GI bleed (Acute) CHRONIC Date of Admission: 08/05/17 Date of Discharge: 08/08/17 - Primary Discharge Diagnosis Active and Suspected Problems acute on chronic blood loss anemia (Acute) CAP (community acquired pneumonia) (Acute) Lower GI bleed (Acute) CHRONIC - Secondary Discharge Diagnosis Chronic Problems Wide-complex tachycardia (Chronic) Chronic diastolic CHF (congestive heart failure) (Chronic) Type 2 diabetes mellitus (Chronic) HgbA1c 06/2016 6.5%. 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) Lymphedema (Chronic) Venous insufficiency (chronic) (peripheral) (Chronic) Hospital Course and Treatment Imaging Results: Clinical Impression(s) from Imaging Studies Chest X-Ray 08/05/17 18:10 IMPRESSION: Right lower lobe pneumonia. Electronically Signed: Bertrand Noel MD at 18:32 EST , Service support , ADDENDUM: 08/05/17 1839 IMPRESSION: Right lower lobe pneumonia. Electronically Signed: Bertrand Noel MD at 18:32 EST , Service support , Operations: None Summary of Care Provided: Patient is a 51-year-old lady with multiple comorbidities admitted with shortness of breath studies obtained in the emergency department came back consistent with right lower lobe pneumonia admitted to monitored bed for subsequent management patient was also found to be anemic on admission with hemoglobin of 7.1 1. Community-acquired pneumonia: Placed on aerosols, antibiotics - Rocephin and Zithromax. Oxygen titrated to keep pulse ox >92%. Blood and sputum cultures sent results Patient did improve with therapy discharged home on cefdinir 2. Symptomatic anemia: Anemia secondary to anemia of chronic disorder. Patient was transfused with 2 units PRBC with consultation placed to general surgery patient underwent EGD on 08/07/2017 with no identifiable source of bleeding found 3. Chronic respiratory failure secondary to obesity hypoventilation syndrome patient is on baseline oxygen 4 L at night 3. Diabetes mellitus type 2 continued with home regimen in addition to Accu-Cheks before meals and at bedtime with sliding scale coverage 5. Mild intermittent asthma currently stable albuterol as needed 6. Obstructive sleep apnea 7. Nonobstructing left renal calculus 8. Degenerative joint disease 9. Fatty liver do suspect nonalcoholic fatty liver disease from patient's morbid obesity as well as diabetes mellitus type 2 10. Chronic bilateral lower extremity lymphedema from venous insufficiency 11. Onychomycosis 12. Morbid obesity with BMI of 74 lifestyle modification including weight loss advised to discuss with patient to follow-up with PCP for referral for consideration for gastric bypass 13. DVT prophylaxis: Lovenox 40 mg SC every 12 Discharge Diet: 1800 Calorie Control Diet Home Medications: Medications to take at Discharge Albuterol Sulfate [Ventolin Hfa] 2 puff INHALATION Q4H PRN PRN 01/08/17 Pantoprazole Sodium [Protonix] 40 mg PO DAILY 02/13/17 Lisinopril [Prinivil] 5 mg PO DAILY 03/06/17 Metoprolol(XL)Succ [Toprol Xl (Beta Vikki)] 25 mg PO DAILY 03/06/17 Acetaminophen [Tylenol Tablet] 650 mg PO Q6H PRN PRN 03/10/17 Dicyclomine HCl [Bentyl] 20 mg PO Q6H PRN PRN 03/10/17 Glimepiride [Amaryl] 2 tab PO DAILY 08/05/17 Hydrochlorothiazide [Hctz] 25 mg PO DAILY 08/05/17 Multivitamin [Daily Multiple Vitamin] 1 each PO 08/05/17 Oxybutynin Chloride [Ditropan Xl] 15 mg PO DAILY 08/05/17 Cefdinir [Omnicef [equiv]] 300 mg PO Q12H #14 cap 08/08/17 Docusate Sodium [Colace] 200 mg PO BID PRN #60 cap 08/08/17 Ferrous Sulfate 325 mg PO DAILY #60 tab 08/08/17 Guaifenesin [Mucinex] 1,200 mg PO BID #20 tab 08/08/17 Following Prescrptions Were Given to Patient: Cefdinir [Omnicef [equiv]] 300 mg PO Q12H #14 cap Docusate Sodium [Colace] 200 mg PO BID PRN #60 cap Ferrous Sulfate 325 mg PO DAILY #60 tab Guaifenesin [Mucinex] 1,200 mg PO BID #20 tab Primary Care Physician: Valeria Mace MD [Primary Care Provider] - Please follow up with your Primary Care Physician in: in 1- 2 weeks Disposition: Home Minutes spent on discharge:: 35 Patient Condition:: Stable Meaningful Use Info Meaningful Use Diagnoses (Choose all that apply): None applicable Code Visit Inpatient E AND M: 17360 Disch Hosp 08/08/17 0906 <Electronically signed by Sebastien Smith MD> Date Sebastien Smith MD Cosigner Signature (if applicable): Date CC: Sebastien Smith MD; Valeria Mace MD Signed DISCHARGE INSTRUCTION Observed: 08/08/2017 Status: F Source: CELINA 9:03 AM [facility] REPOSITORY [facility] Medical Records Department [address] [place] [address] Instructions for Home/Discharge Instructions 08/08/17 0901 MR#: [id number] Acct: [id number] Name: EMILEE BASSETT Rep #: [id number] : 1965 52 From: Sebastien Smith MD PCP: Valeria Mace MD Status: ADM IN - Discharge Diagnoses Current Active Problems: Current Active and Chronic Problems acute on chronic blood loss anemia (Acute) CAP (community acquired pneumonia) (Acute) Lower GI bleed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 Y[facility]anda [facility] ding: Repository 03/23/2018 [id number] Ambulatory BMSBuilding: [place] BMS.[facility] Repository 03/23/2018/04/08/20 [id number] Ambulatory Y[place]anda Yolanda [address] [place] [address] ding: Repository 02/16/2018 [id number] Ambulatory BMSBuilding: [place] BMS.CF.[facility] Repository 02/16/2018/03/08/20 [id number] Ambulatory [place] [facility] ding: Repository 11/14/2017/01/14/20 [id number] Jovani Branch Inpatient [place] 18 [place] [facility]counter [facility] ding:[facility] Repository : VFT22Irl: 1 11/14/2017 [id number] Jovani Branch Ambulatory BMSBuilding: [place] Chi BMS.CF.[facility] Repository 11/14/2017 [id number] Jovani Branch Ambulatory BMSBuilding: [place] Chi BMS.CF.[facility] Repository 11/14/2017 [id number] Jovani Branch Ambulatory BMSBuilding: [place]anda Chi BMS.CF.[facility] Repository 11/11/2017/11/15/19 [id number] Castro, Inpatient [place] Y[place]anda 18 Dagoberto [facility]counter [facility] ding:[facility] Repository : XZH111Onc: 1 11/11/2017/11/15/19 [id number] Ambulatory BMSBuilding: [place] 18 [facility] Repository 11/11/2017/11/15/19 [id number] Ambulatory BMSBuilding: [place] 18 [facility] Repository 11/11/2017/11/15/19 [id number] Ambulatory BMSBuilding: [place] 18 [facility] Repository 11/11/2017/11/15/19 [id number] Ambulatory BMSBuilding: [place] 18 [facility] Repository 11/11/2017 [id number] Andrzej Tran Inpatient [place] Encounter [facility] ding:MS3 Repository 11/10/2017/11/11/19 [id number] Ambulatory BBuilding:DR Drake 18 [facility] Repository 11/10/2017 [id number] Ambulatory BMSBuilding: Y[place] [facility] Repository 10/09/2017/10/26/19 [id number] Jovani Branch Inpatient [place] 18 Chi [facility]counter [facility] ding:[facility] Repository : [id number]: 1 10/08/2017/10/10/19 [id number] Ambulatory BMSBuilding: [place] 18 [facility] Repository 10/04/2017/10/10/19 [id number] Champ, Inpatient [place] 18 K[place]hawn [facility]counter [facility] ding:[facility] Repository : [id number]: 1 10/04/2017 [id number] [facility], Ambulatory BMSBuilding: [place] Keshawn BMS.[facility] Repository 10/04/2017 [id number] [facility], Ambulatory BMSBuilding: [place] Keshawn BMS.[facility] Repository 10/04/2017 [id number] [facility], Ambulatory BMSBuilding: [place] Keshawn BMS.[facility] Repository 10/04/2017 [id number] [facility], Ambulatory BMSBuilding: [place] Keshawn BMS.[facility] Repository 10/04/2017 [id number] [facility], Ambulatory BMSBuilding: [place] Keshawn BMS.[facility] Repository 10/04/2017 [id number] [facility], Ambulatory BMSBuilding: [place] Keshawn BMS.[facility] Repository 10/04/2017/10/10/19 [id number] Ambulatory BMSBuilding: [place] 18 [facility] Repository 08/05/2017/08/09/19 [id number] [facility], Inpatient [place] 18 Keshawn [facility]counter [facility] ding:[facility] Repository : [id number]: 1 08/05/2017 [id number] [facility], Ambulatory BMSBuilding: [place] Keshawn BMS.[facility] Repository 08/05/2017 [id number] [facility], Ambulatory BMSBuilding: [place] Keshawn BMS.[facility] Repository 08/05/2017 [id number] [facility], Ambulatory BMSBuilding: [place] Keshawn BMS.[facility] Repository 08/05/2017 [id number] [facility], Ambulatory BMSBuilding: [place] K[place]hawn BMS.[facility] Repository PAYERS PAYERS ENCOUNTER GUARANTOR PAYER SUBSCRIBER SOURCE 06/24/2018 EMILEE S Primary EMILEE S [place] [id number] SILVER Insurance:TAMMIE ABRAMSOB: [facility] [id number]Policy Number: Repository 00016Yoa: ([phone] [id number] [phone] () Date:2199-67-15YB [address] [place] [address]YK: 06/24/2018 Secondary NOT GIVENUNK [place] Insurance:SELF PAY [facility]: Effective Repository Date:2018-06-23 06/24/2018 EMILEE S Primary EMILEE S [place] SWAIN13 SILVER Insurance:HUMANA MCR SWAINDOB: Community [employer]OND DR[employer] HMO IN [facility] [id number]Policy Number: Repository [id number]: 330 [id number] [phone] (HP) Date:7702-78-96EK [address] [address]ON: 06/24/2018 Secondary NOT GIVENUNK [place] Insurance:SELF PAY [facility] Number: Effective Repository Date:2018-06-24 06/24/2018 EMILEE S Primary EMILEE S [place] SWAIN13 SILVER Insurance:HUMANA MCR SWAINDOB: Community POND DRAPPLE HMO IN [facility] [id number], [place]Policy Number: Repository [id number]: 330 [id number] [phone] (HP) Date:2160-40-80YJ [address] [address]FA: 06/24/2018 Secondary NOT GIVENUNK [place] Insurance:SELF PAY [facility] Number: Effective Repository Date:2018-06-24 06/24/2018 EMILEE S Primary EMILEE S [place] SWAIN13 SILVER Insurance:HUMANA MCR SWAINDOB: Community [employer]OND DR[employer]LE HMO IN [facility] [id number], [place]Policy Number: Repository [id number]: 330 [id number] [phone] (HP) Date:2284-37-32OW [address] [address]EW: 06/24/2018 Secondary NOT GIVENUNK [place] Insurance:SELF PAY [facility] Number: Effective Repository Date:2018-06-24 06/24/2018 EMILEE S Primary EMILEE S [place] SWAIN13 SILVER Insurance:HUMANA MCR SWAINDOB: Community POND DR[employer]LE HMO IN [facility] [id number]Policy Number: Repository [id number]: 330 [id number] [phone] (HP) Date:4410-71-42PC [address] [address]OQ: 06/24/2018 Secondary NOT GIVENUNK [place] Insurance:SELF PAY [facility] Number: Effective Repository Date:2018-06-24 06/24/2018 EMILEE S Primary EMILEE S [place] SWAIN13 SILVER Insurance:HUMANA MCR SWAINDOB: Community POND DR[employer]LE HMO IN [facility] [id number], [place] 04/09/[place]Policy Number: Repository [id number]: 330 [id number] [phone] (HP) Date:2277-70-79LK [address] [address]NR: 06/24/2018 Secondary NOT GIVENUNK [place] Insurance:SELF PAY [facility] Number: Effective Repository Date:2018-06-24 06/24/2018 EMILEE S Primary EMILEE S [place] SWAIN13 SILVER Insurance:HUMANA MCR SWAINDOB: Community POND DRAPPLE HMO IN [facility] [id number], [place] 04/[place]Policy Number: Repository [id number]: 330 [id number] [phone] (HP) Date:5224-00-53KJ [address] [address]BP: 06/24/2018 Secondary NOT GIVENUNK [place] Insurance:SELF PAY [facility] Number: Effective Repository Date:2018-06-24 04/20/2018 EMILEE S Primary EMILEE S [place] SWAIN13 SILVER Insurance:MEDICARE SWAINDOB: Community POND DRAPPLE PART A [facility] [id number], [place] Number: Repository [id number]: 330 [id number] [phone] (HP) Date:2018-02-16 04/20/2018 Secondary NOT GIVENUNK [place] Insurance:SELF PAY [facility] Number: Effective Repository Date:2018-04-09 03/23/2018 EMILEE S Primary EMILEE S [place] SWAIN13 SILVER Insurance:MEDICARE SWAINDOB: Community POND DRAPPLE PART A [facility] [facility] [id number] Ridge Center, [place] Number: Repository [id number]: 330 [id number] [phone] () Date:2018-02-16 03/23/2018 Secondary NOT GIVENUNK [place] Insurance:SELF PAY [facility] Effective Repository Date:2018-03-23 03/23/2018 EMILEE S Primary EMILEE S Yolanda SWAIN13 SILVER Insurance:MEDICARE SWAINDOB: Community [employer] DR[employer] A [facility] [id number] Ridge Center, [place] Number: Repository [address]Zkj: 330 [id number] [phone] () Date:2018-02-16 03/23/2018 Secondary NOT GIVENUNK [place] Insurance:SELF PAY [facility] Effective Repository Date:2018-03-09 02/16/2018 EMILEE S Primary EMILEE S [place] SWAIN13 SILVER Insurance:MEDICARE SWAINDOB: Community [employer] PART A [facility] [id number] Ridge Center, [place] Number: Repository [address]Yao: 330 [id number] [phone] () Date:2018-02-16 02/16/2018 Secondary NOT GIVENUNK [place] Insurance:SELF PAY [facility] Effective Repository Date:2018-02-16 02/16/2018 EMILEE S Primary EMILEE S Yolanda SWAIN13 SILVER Insurance:MEDICARE SWAINDOB: Community [employer] PART A [facility] [id number] Ridge [place] Number: Repository [address]Ebo: 330 [id number] [phone] () Date:2018-02-16 02/16/2018 Secondary NOT GIVENUNK [place] Insurance:SELF PAY [facility] Effective Repository Date:2018-02-16 11/14/2017 EMILEE S Primary EMILEE S Yolanda SWAIN13 SILVER Insurance:MEDICARE SWAINDOB: Community [employer] DR[employer]LE PART A [facility] [id number] Ridge Center[place] Number: Repository [address]Sdg: 330 [id number] [phone] (HP) Date:2017-11-14 11/14/2017 Secondary NOT GIVENUNK Yolanda Insurance:SELF PAY [facility] Effective Repository Date:2017-11-14 11/14/2017 EMILEE S Primary EMILEE S [place] SWAIN13 SILVER Insurance:MEDICARE SWAINDOB: Community [employer] DR[employer]LE PART A [facility] [id number] Ridge Center, [place] Number: Repository [address]Wjg: 330 [id number] [phone] (HP) Date:2017-11-14 11/14/2017 Secondary EMILEE S [place] Insurance:MEDICAL SWAINDOB: [facility] [id number] Hospital Number: Repository [id number] Date:[id number] [address]HL: 11/14/2017 Tertiary NOT GIVENUNK [place] Insurance:SELF PAY [facility] Effective Repository Date:2017-11-14 11/14/2017 EMILEE S Primary EMILEE S Yolanda SWAIN13 SILVER Insurance:MEDICARE SWAINDOB: Community POND DR[employer]LE PART A [facility] [id number] Ridge Center[place] Number: Repository [address]Dkp: 330 [id number] [phone] (HP) Date:2017-11-14 11/14/2017 Secondary NOT GIVENUNK [place] Insurance:SELF PAY [facility] Number: Effective Repository Date:2017-11-14 11/14/2017 EMILEE S Primary EMILEE S Yolanda SWAIN13 SILVER Insurance:MEDICARE SWAINDOB: Community POND DRAPPLE PART A [facility] [id number] Ridge Center, [place] Number: Repository [address]Kyq: 330 [id number] [phone] (HP) Date:2017-11-14 11/14/2017 Secondary NOT GIVENUNK [place] Insurance:SELF PAY [facility] Number[facility] Effective Repository Date:2017-11-14 11/11/2017 EMILEE S Primary EMILEE S Yolanda SWAIN13 SILVER Insurance:MEDICARE SWAINDOB: Community [employer]LE PART A [facility] [id number][place] Number: Repository [address]Aow: 330 [id number] [phone] (HP) Date:2017-11-10 11/11/2017 Secondary NOT GIVENUNK [place] Insurance:SELF PAY [facility] Number: Effective Repository Date:2017-11-10 11/11/2017 EMILEE S Primary EMILEE S Yolanda SWAIN13 SILVER Insurance:MEDICARE SWAINDOB: Community [employer] A [facility] [id number], [place] Number: Repository [address]Jsu: 330 [id number] [phone] () Date:2017-11-10 11/11/2017 Secondary NOT GIVENUNK [place] Insurance:SELF PAY [facility] Number: Effective Repository Date:2017-11-10 11/11/2017 EMILEE S Primary EMILEE S [place] SWAIN13 SILVER Insurance:MEDICARE SWAINDOB: Community P[employer]LE [employer] A [facility] [id number] Number: Repository [address]Xij: 330 [id number] [phone] () Date:2017-11-10 11/11/2017 Secondary NOT GIVENUNK [place] Insurance:SELF PAY [facility] Number: Effective Repository Date:2017-11-11 11/11/2017 EMILEE S Primary EMILEE S [place] SWAIN13 SILVER Insurance:MEDICARE SWAINDOB: Community P[employer]LE PART A [facility] [id number] Number: Repository [address]Oth: 330 [id number] [phone] () Date:2017-11-10 11/11/2017 Secondary EMILEE S [place] Insurance:MEDICAL SWAINDOB: Community [facility] [id number] Hospital Number: Repository [id number] Date:[id number] [address]PQ: 11/11/2017 Tertiary NOT GIVENUNK [place] Insurance:SELF PAY [facility] Number: Effective Repository Date:2017-11-11 11/11/2017 EMILEE S Primary EMILEE S [place] SWAIN13 SILVER Insurance:MEDICARE SWAINDOB: Community P[employer] DR[employer]LE PART A [facility] [id number] Number: Repository [address]Fhq: 330 [id number] [phone] (HP) Date:2017-11-10 11/11/2017 Secondary EMILEE S Yolanda Insurance:MEDICAL SWAINDOB: [facility] [id number] Hospital Number: Repository [id number] Date:[id number] [address]IX: 11/11/2017 Tertiary NOT GIVENUNK [place]olanda Insurance:SELF PAY [facility] Number: Effective Repository Date:2017-11-11 11/11/2017 EMILEE S Primary EMILEE S Yolanda SWAIN13 SILVER Insurance:MEDICARE SWAINDOB: Community P[employer]LE PART A [facility] [id number] Number: Repository [address]Xim: 330 [id number] [phone] () Date:2017-11-12 11/11/2017 Secondary NOT GIVENUNK [place] Insurance:SELF PAY [facility] Effective Repository Date:2017-11-12 11/10/2017 [facility] WOOSTERDOB: Insurance:SELF SWAINDOB: [facility] [id number] [facility] Number: [id number] Repository IVETT PORTER Effective 0 OSMIN ACCTS Date:2017-11-10 - #196WTIAGO SOLANO PAYABLEWRUSS, [id number] Name:8 [id number]: 330 [place] [address]Dsk: [phone] (HP)Tel: ([phone]) (HP) (WP) [phone] (WP) 11/10/2017 EMILEE S Primary EMILEE S Yolanda SWAIN13 SILVER Insurance:MEDICARE SWAINDOB: Community [employer]LE PART A [facility] [id number] Ridge Center[place] Number: Repository [address]Tsy: 330 [id number] [phone] (HP) Date:2017-11-14 11/10/2017 Secondary NOT GIVENUNK [place] Insurance:SELF PAY [facility] Number: Effective Repository Date:2017-11-10 10/09/2017 EMILEE S Primary EMILEE S [place] SWAIN13 SILVER Insurance:MEDICARE SWAINDOB: Community POND DR[employer]LE PART A [facility] [id number] Ridge Center[place] Number: Repository [address]Zth: 330 [id number] [phone] (HP) Date:2017-10-09 10/09/2017 Secondary NOT GIVENUNK Yolanda Insurance:SELF PAY [facility] Number: Effective Repository Date:2017-10-09 10/08/2017 EMILEE S Primary EMILEE S Yolanda SWAIN13 SILVER Insurance:MEDICARE SWAINDOB: Community [employer]LE PART A [facility] [id number] Ridge Center[place] Number: Repository [address]Gyy: 330 [id number] [phone] (HP) Date:2017-10-03 10/08/2017 Secondary EMILEE S [place] Insurance:MEDICAL SWAINDOB: Community [facility] [id number] Hospital Number: Effective Repository Date:6674-55-15ZA[address] [address]HX: 10/08/2017 Tertiary NOT GIVENUNK [place] Insurance:SELF PAY [facility] Number: Effective Repository Date:2017-10-08 10/04/2017 EMILEE S Primary EMILEE S [place]anda SWAIN13 SILVER Insurance:MEDICARE SWAINDOB: Community [employer]LE PART A [facility] [id number] Ridge Center[place] Number: Repository [address]Vzl: 330 [id number] [phone] (HP) Date:2017-10-03 10/04/2017 Secondary NOT GIVENUNK [place]ol[place] Insurance:SELF PAY [facility] Number: Effective Repository Date:2017-10-03 10/04/2017 EMILEE S Primary EMILEE S [place] SWAIN13 SILVER Insurance:MEDICARE SWAINDOB: Community [employer] DR[employer]LE PART A [facility] [id number], [place] Number: Repository [address]Wcr: 330 [id number] [phone] (HP) Date:2017-10-03 10/04/2017 Secondary Lucrecia SwainDOB: Yolanda Insurance:MEDICAL [id number] Health Institute Number: Repository [id number] Date:1494-73-99RP [address] [place] [address]IJ: 10/04/2017 Tertiary NOT GIVENUNK [place] Insurance:SELF PAY [facility] Number: Effective Repository Date:2017-10-04 10/04/2017 EMILEE S Primary EMILEE S [place] SWAIN13 SILVER Insurance:MEDICARE SWAINDOB: Community [employer]OND DR[employer]LE PART A [facility] [id number][place] Number: Repository [address]Qaj: 330 [id number] [phone] (HP) Date:2017-10-03 10/04/2017 Secondary Lucrecia SwainDOB: Yolanda Insurance:MEDICAL [id number] Health Institute Number: Repository [id number] Date:2808-26-03GA [facility] [address] [place] [address]VV: 10/04/2017 Tertiary NOT GIVENUNK [place] Insurance:SELF PAY [facility] Number: Effective Repository Date:2017-10-04 10/04/2017 EMILEE S Primary EMILEE S Yolanda SWAIN13 SILVER Insurance:MEDICARE SWAINDOB: Community POND DR[employer]LE PART A [facility] [id number], [place] Number: Repository [id number]: 330 [id number] [phone] (HP) Date:2017-10-03 10/04/2017 Secondary Lucrecia SwainDOB: [place] Insurance:MEDICAL [id number] Health Institute Number: Repository [id number] Date:1990-17-28RN[address] [address]LB: 10/04/2017 Tertiary NOT GIVENUNK [place] Insurance:SELF PAY [facility] Number: Effective Repository Date:2017-10-04 10/04/2017 EMILEE S Primary EMILEE S [place] SWAIN13 SILVER Insurance:MEDICARE SWAINDOB: Community [employer] DR[employer]LE PART A [facility] [id number], [place] Number: Repository [address]Qtx: 330 [id number] [phone] (HP) Date:2017-10-03 10/04/2017 Secondary Lucrecia SwainDOB: [place] Insurance:MEDICAL [id number] Community Hospital Hospital Number: Repository [id number] Date:5712-04-96DR [address] [address]TW: 10/04/2017 Tertiary NOT GIVENUNK [place] Insurance:SELF PAY [facility] Number: Effective Repository Date:2017-10-04 10/04/2017 EMILEE S Primary EMILEE S [place] SWAIN13 SILVER Insurance:MEDICARE SWAINDOB: Community [employer] DR[employer]LE PART A [facility] [id number], [place] Number: Repository [address]Hqx: 330 [id number] [phone] (HP) Date:2017-10-03 10/04/2017 Secondary Lucrecia SwainDOB: Yolanda Insurance:MEDICAL [id number] Community Hospital Hospital Number: Repository [id number] Date:6829-36-89CZ [address] [address]KH: 10/04/2017 Tertiary NOT GIVENUNK [place] Insurance:SELF PAY [facility] Number: Effective Repository Date:2017-10-04 10/04/2017 EMILEE S Primary EMILEE S Yolanda SWAIN13 SILVER Insurance:MEDICARE SWAINDOB: Community [employer] DR[employer]LE PART A [facility] [id number] Number: Repository [address]Qng: 330 [id number] [phone] (HP) Date:2017-10-03 10/04/2017 Secondary Lucrecia SwainDOB: [place] Insurance:MEDICAL [id number] Community Hospital Hospital Number: Repository [id number] Date:8402-71-08FF [address] [address]AZ: 10/04/2017 Tertiary NOT GIVENUNK [place] Insurance:SELF PAY [facility] Number: Effective Repository Date:2017-10-04 10/04/2017 EMILEE S Primary EMILEE S [place] SWAIN13 SILVER Insurance:MEDICARE SWAINDOB: Community P[employer] DR[employer]LE PART A [facility] [id number], [place] Number: Repository [address]Kop: 330 [id number] [phone] () Date:2017-10-03 10/04/2017 Secondary Lucrecia SwainDOB: [place] Insurance:MEDICAL [id number] Community Hospital Hospital Number: Repository [id number] Date:4159-20-51HX [address] [address]UC: 10/04/2017 Tertiary NOT GIVENUNK [place] Insurance:SELF PAY [facility] Number: Effective Repository Date:2017-10-04 08/05/2017 EMILEE S Primary EMILEE S Yolanda SWAIN13 SILVER Insurance:MEDICARE SWAINDOB: Community [employer]LE PART A [facility] [id number][place] Number: Repository [address]Yuj: 330 [id number] [phone] () Date:2017-08-05 08/05/2017 Secondary EMILEE S [place] Insurance:MEDICAL SWAINDOB: [facility] [id number] Hospital Number: Repository [id number] Date:3532-12-04SQ [address] [address]EK: 08/05/2017 Tertiary NOT GIVENUNK [place] Insurance:SELF PAY [facility] Number: Effective Repository Date:2017-08-05 08/05/2017 EMILEE S Primary EMILEE S [place] SWAIN13 SILVER Insurance:MEDICARE SWAINDOB: Community POND DR[employer]LE PART A [facility] [id number], [place] Number: Repository [address]Upo: 330 [id number] [phone] (HP) Date:2017-08-05 08/05/2017 Secondary Lucrecia SwainDOB: [place] Insurance:MEDICAL [id number] Health Institute Number: Repository [id number] Date:3145-71-22OE [address] [address]MC: 08/05/2017 Tertiary NOT GIVENUNK [place] Insurance:SELF PAY [facility] Number: Effective Repository Date:2017-08-05 08/05/2017 EMILEE SWAIN13 Primary EMILEE S [place]olanda SILVER POND Insurance:MEDICARE SWAINDOB: Community DRAPPLE [place], PART A [facility] [id number] Indian Medical Center [address]Ron: Number: Repository [phone] [id number] (HP) Date:2017-08-05 08/05/2017 Secondary Lucrecia SwainDOB: Yolanda Insurance:MEDICAL [id number] Community Hospital Hospital Number: Repository [id number] Date:8146-77-88QD [facility] [address] [place] [address]CD: 08/05/2017 Tertiary NOT GIVENUNK [place] Insurance:SELF PAY [facility] Number: Effective Repository Date:2017-08-05 08/05/2017 EMILEE S Primary EMILEE S [place] SWAIN13 SILVER Insurance:MEDICARE SWAINDOB: Community POND DRAPPLE PART A [facility] [id number] Number: Repository [address]Zxp: 330 [id number] [phone] (HP) Date:2017-08-05 08/05/2017 Secondary Lucrecia SwainDOB: [place] Insurance:MEDICAL [id number] Community Hospital Hospital Number: Repository [id number] Date:1062-95-87FG [address] [address]IY: 08/05/2017 Tertiary NOT GIVENUNK [place] Insurance:SELF PAY [facility] Number: Effective Repository Date:2017-08-05 08/05/2017 EMILEE S Primary EMILEE S Yolanda SWAIN13 SILVER Insurance:MEDICARE SWAINDOB: Community [facility] [id number] Number[place] Repository [id number]: (548) [id number] [phone] () Date:2017-08-05 08/05/2017 Secondary Lucrecia SwainDOB: Yolanda Insurance:MEDICAL [id number] [facility] Number: Repository [id number] Date:6534-43-99VA[address] [address]UI: 08/05/2017 Tertiary NOT GIVENUNK [place] Insurance:SELF PAY [facility] Number: Effective Repository Date:2017-08-05
== END 2018-06-29 07:15 | disposition skilled nursing facility (03) | DRG 292 ==
LOC: ED 06-24 02:10 → PCU 06-24 02:48
PROVIDERS: Internal Medicine; Admitting Provider Family Medicine; Emergency Provider Emergency Medicine; Family Provider Family Medicine; PCP Family Medicine; Visit Provider Family Medicine
DX: I11.0 Hypertensive heart disease with heart failure (principal); J96.11 Chronic respiratory failure with hypoxia; E66.2 Morbid (severe) obesity with alveolar hypoventilation; Z68.45 Body mass index [BMI] 70 or greater, adult; I50.33 Acute on chronic diastolic (congestive) heart failure; Z99.81 Dependence on supplemental oxygen; D63.8 Anemia in other chronic diseases classified elsewhere; J45.20 Mild intermittent asthma, uncomplicated; E11.40 Type 2 diabetes mellitus with diabetic neuropathy, unspecified; Z79.84 Long term (current) use of oral hypoglycemic drugs; Z79.899 Other long term (current) drug therapy; Z87.891 Personal history of nicotine dependence
CPT/HCPCS: 36415; 71045; 80048; 80061; 81001; 82274; 82962; 83036; 83735; 83880; 84443; 84484; 85025; 85027; 86850; 86870; 86900; 86902; 86905; 86920; 86921; 86922; 87633; 93005; 93306; 97116; 97162; 97166; 97530; 97535; 97802; 99285; J1756; J7040; P9016; A4216; J1940

== ENCOUNTER 2018-07-14 23:58 | Inpatient (IN) | payer MEDICARE, SELFPAY ==
[2018-06-24 04:53] VITALS: BMI 79.7
[2018-07-14 23:58] VITALS: BP 141/91; PULSE 86; RESP 24; TEMP 38.1; O2SAT 97; BMI 65.5
[2018-07-15] VITALS (18 sets, daily range): BP systolic 111–161; BP diastolic 57–79; PULSE 69–96; RESP 18–24; TEMP 36.6–39.6; O2SAT 95–100; BMI 64.1; BMI 64.2
--- NOTE | 2018-07-15 00:17 | RAD_ITS ---
STUDY: X-RAY CHEST REASON FOR EXAM: Female, 53 years old. Fever TECHNIQUE: Single AP portable view of the chest. COMPARISON: 06/24/2018 FINDINGS: Patchy airspace infiltration throughout both lung bases, There is no demonstrated pleural abnormality. Borderline cardiomegaly. Normal mediastinum and negra. Mild central pulmonary vascular congestion. Normal visualized aortic arch and descending thoracic aorta. Normal visualized thoracic spine. Normal visualized ribs, clavicles, and shoulders. There is no demonstrated abnormality of the visualized soft tissue structures of the upper abdomen. RAD/Chest 1 View (Portable) IMPRESSION: Bibasilar infiltrates versus confluent bibasilar edema. Electronically Signed: Hari Ruth MD at 0:56 EST Tel , Service support ,
[2018-07-15] MEDS: 0.9% Normal Saline 1,000 ML 999 ML IV (00:35)
[2018-07-15 00:51] LABS: Absolute Lymphocyte Count 0.58 X10^3/ul (0.83-4.51); Absolute Neutrophil Count 18.5 X10^3/uL (2.0-7.7); Basophil# 0.01 X10^3/uL; Basophil% 0.1 % (0-1); Eosinophil# 0.02 X10^3/uL; Eosinophils% 0.1 % (0-5); Hematocrit 35.1 % (37-47); Hemoglobin 9.8 g/dl (12.0-15.0); Lymphocyte # 0.58 X10^3/ul (4.0); Mean Corp Hgb Conc 27.9 g/gl (32-36); Mean Corpuscular Hgb 25.6 pg (27.0-32.0); Mean Corpuscular Volume 91.6 fL (81-99); Mean Platelet Vol. 8.9 fl (6.2-12.0); Monocyte# 0.25 X10^3/uL; Monocyte% 1.3 % (0-10); Neutrophil # 18.49 X10^3/uL (2.7-7.7); Neutrophil % 95.2 % (47-70); Platelet Count 204 K/mm3 (150-450); RBC Distribution Width CV 18.4 % (11.6-14.6); RBC Distribution Width SD 61.7 fl (35.1-43.9); Red Blood Count 3.83 M/mm3 (4.2-5.4); White Blood Count 19.4 K/mm3 (4.4-11.0)
[2018-07-15 00:56] LABS: Anion Gap 8 (5-15); BUN 26 mg/dL (7-18); BUN/Creat Ratio 21.5 RATIO (10-20); Calcium,Total 8.3 mg/dL (8.5-10.1); Chloride 104 mmol/L (98-107); Creatinine, Serum 1.21 mg/dL (0.55-1.02); EST Glomerular Filtration Rate 49 mL/min (>60); Est Glom Filt Rate - Afr Amer 60 mL/min (>60); Estimated Creatinine Clearance 38.62 ml/min; Glucose 166 mg/dL (74-106); Potassium 4.6 mmol/L (3.5-5.1); Sodium Level 138 mmol/L (136-145)
[2018-07-15 01:06] LABS: Differential Indicated SCAN CRITERIA MET; POSITIVE COUNT NO; POSITIVE DIFFERENTIAL YES; POSITIVE MORPHOLOGY YES
[2018-07-15 01:15] LABS: Anisocytosis RARE
[2018-07-15 01:16] LABS: Hypochromasia 1+; Platelet Estimate ADEQUATE (ADEQ)
[2018-07-15 01:19] LABS: Mucous, Urine 0 SEEN /hpf (<or=2+); Squamous Epithelial Cells - UA 0 SEEN /hpf (5-10)
[2018-07-15 01:22] LABS: Color, Urine Yellow (Yellow); Glucose, Dipstick Normal (Normal); Ketone-Dipstick 5 mg/dl (Negative); Leukocyte Esterase-Dipstick 500 /ul (Negative); Nitrite-Dipstick Positive (Negative); Occult Blood-Urine 50 /ul (Negative); Protein-Dipstick 30 mg/dl (Negative); Urine Clarity Sl. Cloudy (Clear); Urine Urobilinogen 4 mg/dl (Normal)
[2018-07-15 01:24] LABS: Urine Bilirubin Dipstick 1 mg/dL (Negative)
[2018-07-15 01:33] LABS: Red Blood Cells-Urine 0-5 SEEN /hpf (0-5); White Blood Cells 25-50 SEEN /hpf (0-5)
[2018-07-15 01:34] LABS: Bacteria 2+ /hpf (None Seen)
--- NOTE | 2018-07-15 01:36 | ED.RN ---
dr silvestre notified of sepsis alert. pt is DNRCC. No further sepsis orders initiated.
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
--- NOTE | 2018-07-15 02:04 | ED.VISSUMM ---
- ER Visit Summary Date of Service: 07/15/18 Chief Complaint: Fever History of Present Illness: The patient is a 53 F who presents with a fever. Patient has multiple comorbidities including super morbid obesity obstructive sleep apnea prior LA CHF diabetes hypertension hyperlipidemia. She is DNR comfort care only. I did clarify goals of care. She made it clear that she does not want CPR intubation or aggressive measures such as central line. She stated that if she became critically ill she would only want to be made comfortable. She states that she developed a fever and generalized malaise today. She had one episode of diarrhea. She had a fever of 102. She does complain of congestion rhinorrhea sore throat muscle aches joint aches. No chest pain no shortness of breath no cough. No abdominal pain nausea or vomiting. Physical Examination: Temperature 100.6 heart rate 86 respiratory rate 24 blood pressure 141/91 No distress Patient does have lymphedema of the lower extremities She is alert and oriented Abdomen soft nontender nondistended Lungs are clear I do not appreciate rales rhonchi wheezes Heart regular rate and rhythm Moist mucous membranes Test Results: Rapid influenza is negative. Chest x-ray shows bibasilar infiltrates versus edema. Labs notable for white blood cell count 19.4, hemoglobin 9.8. Creatinine is 1.21. Urinalysis shows 500 leukocyte esterase 2+ bacteria 25-50 WBCs. Cultures and lactic acid were sent. Emergency Department Course and Treatment: Patient was treated with IV fluids. She was given IV Zosyn and vancomycin. I discussed given that she is comfort care only we could send her back to the nursing facility with oral antibiotics versus admit to the hospital for IV antibiotics and symptomatic treatment. She did agree to hospitalization. She discussed with the hospitalist and will be admitted. Treatment Plan: [] Disposition: Admit Impression: UTI Sepsis syndrome Healthcare associated pneumonia This note was generated with [employer] software. It may contain incorrect words, spelling, and punctuation that were not noted in review of the chart prior to signing ED Disposition - Plan for ED Patient: Referrals: Merrcik Mace MD [Primary Care Provider] -
--- NOTE | 2018-07-15 02:24 | ED.RN ---
ECF UPDATED WITH ADMISSION.
[2018-07-15 02:44] LABS: Lactic Acid 2.2 mmol/L (0.4-2.0)
[2018-07-15 03:12] LABS: AST(SGOT) 19 U/L (15-37); Alanine Aminotransfer ALT/SGPT 19 U/L (13-56); Albumin, Serum 2.9 g/dL (3.2-5.0); Alkaline Phosphatase 91 U/L (45-117); Bilirubin, Direct 0.21 mg/dL (0.00-0.30); Globulin 6.6 g/dL (2.2-4.2); Protein, Total 9.5 g/dL (6.4-8.2)
[2018-07-15] MEDS: 0.9% Normal Saline 1,000 ML 75 ML IV (03:30)
[2018-07-15] MEDS: Acetaminophen 325 MG Tablet 650 MG PO ×2 (03:31→10:42)
--- NOTE | 2018-07-15 04:07 | PCM.RX.CS ---
Consult Pharmacy has been consulted to manage selected antiobiotic: Vancomycin Type of Consult: New start Suspected Infection: Sepsis Prior Doses of Antibiotics Received/Current Regimen: Medications Piperacillin Sod/Tazobactam Sod (Zosyn) 4.5 gm in 100 mls @ 200 mls/hr IV X1 ANIA Last Admin: 07/15/18 02:20 Dose: 200 mls/hr Piperacillin Sod/Tazobactam (Sod 3.375 gm/ Sodium Chloride) 50 mls @ 12.5 mls/hr IV Q8 ANIA Labs: Sodium 138 mmol/L (136-145) 07/15/18 00:35 Potassium 4.6 mmol/L (3.5-5.1) 07/15/18 00:35 Chloride 104 mmol/L (98-107) 07/15/18 00:35 Carbon Dioxide 26.0 mmol/L (21.0-32.0) 07/15/18 00:35 Anion Gap 8 (5-15) 07/15/18 00:35 BUN 26 mg/dL (7-18) H 07/15/18 00:35 Creatinine 1.21 mg/dL (0.55-1.02) H 07/15/18 00:35 Est GFR (MDRD) Af Amer 60 mL/min (>60) 07/15/18 00:35 Est GFR (MDRD) Non-Af 49 mL/min (>60) L 07/15/18 00:35 BUN/Creatinine Ratio 21.5 RATIO (10-20) H 07/15/18 00:35 Glucose 166 mg/dL (74-106) H 07/15/18 00:35 Microbiology: Microbiology 07/15/18 00:30 Mucosa - Nose Influenza Types A,B Direct FA (JENNIFER) - Final Weight used for dosin kg Estimated Creatinine Clearance: 38.62 Goal Trough: 15-20 mcg/mL Pharmacy Plan for Drug Dosing: Pharmacy Service will continue to monitor and adjust dosing as required. Medications Vancomycin HCl 1,500 mg/ (Sodium Chloride) 530 mls @ 250 mls/hr IV Q24H ANIA Discontinued Medications Vancomycin HCl 1,500 mg/ (Sodium Chloride) 530 mls @ 250 mls/hr IV X1 ONE Stop: 07/15/18 03:55 Last Admin: 07/15/18 03:30 Dose: 250 mls/hr Follow-Up Labs: Trough Vancomycin Labs to be done on [date and time ordered]: 06/16 @ 7671
[2018-07-15] MEDS: Menthol/Lanolin/Calamine/Znox 113 GM Tube 1 APPLIC TOPICAL ×3 (05:26→21:17)
[2018-07-15] MEDS: guaiFENesin 1,200 MG Tablet 1200 MG PO ×2 (05:27→21:16)
[2018-07-15] MEDS: Heparin Injection (Vial) 5,000 UNIT/ML VIAL 5000 UNIT SC ×3 (05:27→21:16)
[2018-07-15] MEDS: Nystatin Powder 15gm Bottle 1 APPLIC TOPICAL ×2 (05:27→21:17)
[2018-07-15 06:16] LABS: Reflex Lactate? Y
[2018-07-15 06:31] LABS: International Normalized Ratio 1.3; Prothrombin Time (Protime)PT. 15.7 SECONDS (11.7-14.9)
[2018-07-15 06:33] LABS: Hematocrit 31.9 % (37-47); Hemoglobin 8.8 g/dl (12.0-15.0); Mean Corp Hgb Conc 27.6 g/gl (32-36); Mean Corpuscular Hgb 25.4 pg (27.0-32.0); Mean Corpuscular Volume 91.9 fL (81-99); Platelet Count 176 K/mm3 (150-450); RBC Distribution Width CV 18.7 % (11.6-14.6); RBC Distribution Width SD 62.8 fl (35.1-43.9); Red Blood Count 3.47 M/mm3 (4.2-5.4); White Blood Count 15.7 K/mm3 (4.4-11.0)
[2018-07-15] MEDS: Ipratropium/Albuterol Sulfate 3 ML AMPUL.NEB INHALATION ×2 (06:33→13:03)
[2018-07-15 06:45] LABS: Anion Gap 8 (5-15); BUN 27 mg/dL (7-18); BUN/Creat Ratio 24.8 RATIO (10-20); Chloride 105 mmol/L (98-107); Creatinine, Serum 1.09 mg/dL (0.55-1.02); EST Glomerular Filtration Rate 56 mL/min (>60); Est Glom Filt Rate - Afr Amer 68 mL/min (>60); Estimated Creatinine Clearance 42.87 ml/min; Glucose 156 mg/dL (74-106); Potassium 4.3 mmol/L (3.5-5.1); Sodium Level 140 mmol/L (136-145)
[2018-07-15 06:48] LABS: Scan Indicated on CBC? Y/N NO
[2018-07-15 06:53] LABS: Lactic Acid 1.4 mmol/L (0.4-2.0)
[2018-07-15] MEDS: Multivitamins,Therapeutic Tablet 1 TABLET PO (08:19)
[2018-07-15] MEDS: Glimepiride 2 MG Tablet PO (08:19)
[2018-07-15] MEDS: Iron Polysaccharide Complex 150 MG CAPSULE PO (08:20)
--- NOTE | 2018-07-15 10:00 | CASEMGMT ---
Patient is from [facility]. She will require a prior authorization before she can return. SW will fax updates to [facility]. Lilian ZHOU MSW
[2018-07-15] MEDS: dilTIAZem CD 120 MG Capsule PO ×2 (10:42→21:16)
[2018-07-15] MEDS: Pantoprazole Sodium 40 MG Tablet PO (10:42)
[2018-07-15] MEDS: Metoprolol(XL)Succ 25 MG Tablet PO (10:42)
--- NOTE | 2018-07-15 12:39 | NURSING ---
Pt states headache had not gotten better after taking tylenol. Offered food and drink. Pt will try sip on some soda. Will cont. to monitor
--- NOTE | 2018-07-15 13:33 | CASEMGMT ---
KHUSHBOO faxed clinicals to [facility] and called [facility]. KHUSHBOO asked her to please start the pre-cert. Lilian ZHOU MSW
--- NOTE | 2018-07-15 13:46 | PN_ITS ---
<Nenita Guallpa - Last Filed: 07/15/18 13:47> Patient Problems: Active and Suspected Problems Sepsis (Acute) HCAP (healthcare-associated pneumonia) (Acute) UTI (urinary tract infection) (Acute) Subjective: Patient seen and examined. Drowsy. Flat affect. Denies current complaints. - Physical Exam General: No apparent distress, - - Drowsy HEENT: Atraumatic, PERRLA, EOMI, Normocephalic Neck: Supple, No JVD, Negative Carotid Bruits Lungs: Clear to auscultation, Diminished Cardiovascular: Regular rate, Regular Rhythm, Normal S1, Normal S2, No murmurs Abdomen: Bowel Sounds Present, Soft, Non Tender, Non-Distended, Obese Extremities: No clubbing, No cyanosis, Edema - Chronic lymphedema bilateral lower extremities Skin: No rashes, No breakdown, - - Chronic venous stasis changes bilateral lower extremities. Musculoskeletal: No Tenderness to Palpation of Joints or Extremities Neurological: Cranial nerves II-XII grossly intact, Neuro grossly intact Psych/Mental Status: Flat Affect Vital Signs Temp Pulse Resp BP Pulse Ox 99.9 F H 85 20 H 132/58 H 99 07/15/18 10:35 07/15/18 10:42 07/15/18 10:35 07/15/18 10:42 07/15/18 10:35 Oxygen Flow Rate (L/min) 3 Oxygen Delivery Method Nasal Cannula Weight: 328 lb 7.82 oz Body Mass Index (BMI) 64.1 Intake and Output for Last 24 Hours 07/13/18 07/14/18 07/15/18 23:59 23:59 23:59 Intake Total 1528 / 1528 Output Total 600 / 600 Balance 928 / 928 Microbiology Past 72 Hours 07/15/18 08:20 Respiratory Panel (PCR) - Final Mucosa - Nasopharyngeal 07/15/18 04:10 Streptococcus pneumoniae Antigen (M - Final Urine, Clean Catch 07/15/18 04:10 Legionella Antigen - Final Urine, Clean Catch 07/15/18 00:30 Influenza Types A,B Direct FA (JENNIFER) - Final Mucosa - Nose Laboratory Tests Past 24 Hrs 07/15/18 07/15/18 07/15/18 00:35 00:35 00:35 WBC 19.4 H RBC 3.83 L Hgb 9.8 L Hct 35.1 L MCV 91.6 MCH 25.6 L MCHC 27.9 L RDW 18.4 H RDW Differential 61.7 H Plt Count 204 MPV 8.9 Immature Gran % (Auto) 0.300 Neut % (Auto) 95.2 H Lymph % (Auto) 3.0 L Surry % (Auto) 1.3 Eos % (Auto) 0.1 Baso % (Auto) 0.1 Absolute Neuts (auto) 18.5 H Absolute Lymphs (auto) 0.58 L Total Counted Not Reportable Differential Comment Platelet Estimate ADEQUATE Hypochromasia 1+ Anisocytosis RARE PT INR Sodium 138 Potassium 4.6 Chloride 104 Carbon Dioxide 26.0 Anion Gap 8 BUN 26 H Creatinine 1.21 H Estim Creat Clear Calc 38.62 Est GFR (MDRD) Af Amer 60 Est GFR (MDRD) Non-Af 49 L BUN/Creatinine Ratio 21.5 H Glucose 166 H Lactic Acid Calcium 8.3 L Total Bilirubin 0.60 Direct Bilirubin 0.21 AST 19 ALT 19 Alkaline Phosphatase 91 Total Protein 9.5 H Albumin 2.9 L Globulin 6.6 H Urine Color Urine Clarity Urine pH Ur Specific Hermosa Urine Protein Urine Glucose (UA) Urine Ketones Urine Occult Blood Urine Nitrite Urine Bilirubin Urine Urobilinogen Ur Leukocyte Esterase Urine RBC Urine WBC Ur Squamous Epith Cells Urine Bacteria Urine Mucus 07/15/18 07/15/18 07/15/18 01:14 02:10 06:10 WBC RBC Hgb Hct MCV MCH MCHC RDW RDW Differential Plt Count MPV Immature Gran % (Auto) Neut % (Auto) Lymph % (Auto) Surry % (Auto) Eos % (Auto) Baso % (Auto) Absolute Neuts (auto) Absolute Lymphs (auto) Total Counted Differential Comment Platelet Estimate Hypochromasia Anisocytosis PT 15.7 H INR 1.3 Sodium Potassium Chloride Carbon Dioxide Anion Gap BUN Creatinine Estim Creat Clear Calc Est GFR (MDRD) Af Amer Est GFR (MDRD) Non-Af BUN/Creatinine Ratio Glucose Lactic Acid 2.2 H Calcium Total Bilirubin Direct Bilirubin AST ALT Alkaline Phosphatase Total Protein Albumin Globulin Urine Color Yellow Urine Clarity Sl. Cloudy Urine pH 5.0 Ur Specific Hermosa 1.020 Urine Protein 30 H Urine Glucose (UA) Normal Urine Ketones 5 H Urine Occult Blood 50 H Urine Nitrite Positive H Urine Bilirubin 1 H Urine Urobilinogen 4 H Ur Leukocyte Esterase 500 H Urine RBC 0-5 SEEN Urine WBC 25-50 SEEN Ur Squamous Epith Cells 0 SEEN Urine Bacteria 2+ Urine Mucus 0 SEEN 07/15/18 07/15/18 07/15/18 06:10 06:10 06:10 WBC 15.7 H RBC 3.47 L Hgb 8.8 L Hct 31.9 L MCV 91.9 MCH 25.4 L MCHC 27.6 L RDW 18.7 H RDW Differential 62.8 H Plt Count 176 MPV 9.0 Immature Gran % (Auto) Neut % (Auto) Lymph % (Auto) Surry % (Auto) Eos % (Auto) Baso % (Auto) Absolute Neuts (auto) Absolute Lymphs (auto) Total Counted Differential Comment Platelet Estimate Hypochromasia Anisocytosis PT INR Sodium 140 Potassium 4.3 Chloride 105 Carbon Dioxide 27.0 Anion Gap 8 BUN 27 H Creatinine 1.09 H Estim Creat Clear Calc 42.87 Est GFR (MDRD) Af Amer 68 Est GFR (MDRD) Non-Af 56 L BUN/Creatinine Ratio 24.8 H Glucose 156 H Lactic Acid 1.4 Calcium 8.0 L Total Bilirubin Direct Bilirubin AST ALT Alkaline Phosphatase Total Protein Albumin Globulin Urine Color Urine Clarity Urine pH Ur Specific Hermosa Urine Protein Urine Glucose (UA) Urine Ketones Urine Occult Blood Urine Nitrite Urine Bilirubin Urine Urobilinogen Ur Leukocyte Esterase Urine RBC Urine WBC Ur Squamous Epith Cells Urine Bacteria Urine Mucus Medical Necessity - Tobacco Use Smoking Status: Former smoker Assessment/Plan All Active Problems Sepsis (Acute) HCAP (healthcare-associated pneumonia) (Acute) UTI (urinary tract infection) (Acute) History of necrotizing fasciitis (Acute) CAP (community acquired pneumonia) (Acute) Lower GI bleed (Resolved) Acute on chronic diastolic heart failure (Acute) Acute bronchitis with asthma with acute exacerbation (Acute) Shortness of breath (Acute) Acute bronchitis (Acute) Atrial fibrillation with RVR (Acute) Otitis externa (Acute) Metabolic alkalosis (Acute) Blood in stool (Acute) Anemia (Acute) Abdominal pain (Resolved) 1. Severe sepsis secondary to healthcare acquired pneumonia and urinary tract infection- improving. 2. Healthcare associated pneumonia-continue IV vancomycin and IV Zosyn. Albuterol DuoNeb aerosols. Urine for strep and Legionella negative. Respiratory panel and influenza negative. Obtain sputum for culture. Blood cultures pending. 3. Acute UTI-urinalysis positive. Urine culture pending. IV antibiotics as noted above. 4. Chronic hypoxic respiratory failure secondary to obesity hypoventilation syndrome-patient wears supplemental oxygen at night. Continue supplement oxygen to maintain O2 at or above 90%. 5. Chronic diastolic CHF-echocardiogram 06/24/18 an EF of 65%, mild tricuspid valve insufficiency, RVSP estimated to be 56 mmHg, moderate pulmonary hypertension. 6. Chronic normocytic anemia-baseline hemoglobin 8-9. Continue iron supplemen tation. Recent admission with negative stool occult blood. 7. Chronic kidney disease stage II-mildly increased on admission, improved. Trend BMP. 8. Type 2 diabetes [id number] AC at bedtime with sliding scale insulin. 9. Obstructive sleep apnea 10. Chronic bilateral lower extremity lymphedema/venous insufficiency-Anders wraps bilateral lower extremities 11. Fatty liver, suspected secondary to morbid obesity 12. Morbid obesity-BMI 64. Encouraged diet lifestyle modifications. 13. Paroxysmal atrial fibrillation-continue Cardizem, metoprolol. DVT prophylaxis-Heparin sc. Discharge planning: Return to SNF pending pre-CERT and when medically stable. This patient was seen by MALGORZATA Elder under the supervision of Dr. Ladd. <Mike Ladd - Last Filed: 07/15/18 15:10> Subjective: Complains about her right knee hurting which she states is chronic. - Physical Exam General: No apparent distress, - - Drowsy. Does communicate but does not open her eyes during encounter. HEENT: Atraumatic, Normocephalic Oral: Moist Mucosa, No Gingival or Mucosal Lesions/ Ulcerations Neck: No Nodes, Thyroid Normal Size and Texture Lungs: Clear to auscultation, Diminished Cardiovascular: Regular rate, Regular Rhythm, Normal S1, Normal S2, No murmurs Abdomen: Bowel Sounds Present, Soft, Non Tender, Non-Distended, Obese Extremities: No cyanosis, No Calf Tenderness, Edema Skin: No rashes, No breakdown, - Musculoskeletal: - - Tender to palpation of the right knee. No obvious warmth or nor erythema noted around it. Neurological: Cranial nerves II-XII grossly intact, Neuro grossly intact Psych/Mental Status: Flat Affect Vital Signs Temp Pulse Resp BP Pulse Ox 37.7 C H 85 20 H 132/58 H 99 07/15/18 10:35 07/15/18 10:42 07/15/18 10:35 07/15/18 10:42 07/15/18 10:35 Oxygen Flow Rate (L/min) 3 Oxygen Delivery Method Nasal Cannula Weight: 149 kg Body Mass Index (BMI) 64.1 Intake and Output for Last 24 Hours 07/13/18 07/14/18 07/15/18 23:59 23:59 23:59 Intake Total 1528 / 1528 Output Total 600 / 600 Balance 928 / 928 Microbiology Past 72 Hours 07/15/18 02:10 Blood Culture - Preliminary Blood Culture (Wb) - Left Forearm 07/15/18 02:20 Blood Culture - Preliminary Blood Culture (Wb) - Anticubital Right 07/15/18 08:20 Respiratory Panel (PCR) - Final Mucosa - Nasopharyngeal 07/15/18 04:10 Streptococcus pneumoniae Antigen (M - Final Urine, Clean Catch 07/15/18 04:10 Legionella Antigen - Final Urine, Clean Catch 07/15/18 00:30 Influenza Types A,B Direct FA (JENNIFER) - Final Mucosa - Nose Laboratory Tests Past 24 Hrs 07/15/18 07/15/18 07/15/18 00:35 00:35 00:35 WBC 19.4 H RBC 3.83 L Hgb 9.8 L Hct 35.1 L MCV 91.6 MCH 25.6 L MCHC 27.9 L RDW 18.4 H RDW Differential 61.7 H Plt Count 204 MPV 8.9 Immature Gran % (Auto) 0.300 Neut % (Auto) 95.2 H Lymph % (Auto) 3.0 L Surry % (Auto) 1.3 Eos % (Auto) 0.1 Baso % (Auto) 0.1 Absolute Neuts (auto) 18.5 H Absolute Lymphs (auto) 0.58 L Total Counted Not Reportable Differential Comment Platelet Estimate ADEQUATE Hypochromasia 1+ Anisocytosis RARE PT INR Sodium 138 Potassium 4.6 Chloride 104 Carbon Dioxide 26.0 Anion Gap 8 BUN 26 H Creatinine 1.21 H Estim Creat Clear Calc 38.62 Est GFR (MDRD) Af Amer 60 Est GFR (MDRD) Non-Af 49 L BUN/Creatinine Ratio 21.5 H Glucose 166 H Lactic Acid Calcium 8.3 L Total Bilirubin 0.60 Direct Bilirubin 0.21 AST 19 ALT 19 Alkaline Phosphatase 91 Total Protein 9.5 H Albumin 2.9 L Globulin 6.6 H Urine Color Urine Clarity Urine pH Ur Specific Hermosa Urine Protein Urine Glucose (UA) Urine Ketones Urine Occult Blood Urine Nitrite Urine Bilirubin Urine Urobilinogen Ur Leukocyte Esterase Urine RBC Urine WBC Ur Squamous Epith Cells Urine Bacteria Urine Mucus 07/15/18 07/15/18 07/15/18 01:14 02:10 06:10 WBC RBC Hgb Hct MCV MCH MCHC RDW RDW Differential Plt Count MPV Immature Gran % (Auto) Neut % (Auto) Lymph % (Auto) Surry % (Auto) Eos % (Auto) Baso % (Auto) Absolute Neuts (auto) Absolute Lymphs (auto) Total Counted Differential Comment Platelet Estimate Hypochromasia Anisocytosis PT 15.7 H INR 1.3 Sodium Potassium Chloride Carbon Dioxide Anion Gap BUN Creatinine Estim Creat Clear Calc Est GFR (MDRD) Af Amer Est GFR (MDRD) Non-Af BUN/Creatinine Ratio Glucose Lactic Acid 2.2 H Calcium Total Bilirubin Direct Bilirubin AST ALT Alkaline Phosphatase Total Protein Albumin Globulin Urine Color Yellow Urine Clarity Sl. Cloudy Urine pH 5.0 Ur Specific Hermosa 1.020 Urine Protein 30 H Urine Glucose (UA) Normal Urine Ketones 5 H Urine Occult Blood 50 H Urine Nitrite Positive H Urine Bilirubin 1 H Urine Urobilinogen 4 H Ur Leukocyte Esterase 500 H Urine RBC 0-5 SEEN Urine WBC 25-50 SEEN Ur Squamous Epith Cells 0 SEEN Urine Bacteria 2+ Urine Mucus 0 SEEN 07/15/18 07/15/18 07/15/18 06:10 06:10 06:10 WBC 15.7 H RBC 3.47 L Hgb 8.8 L Hct 31.9 L MCV 91.9 MCH 25.4 L MCHC 27.6 L RDW 18.7 H RDW Differential 62.8 H Plt Count 176 MPV 9.0 Immature Gran % (Auto) Neut % (Auto) Lymph % (Auto) Surry % (Auto) Eos % (Auto) Baso % (Auto) Absolute Neuts (auto) Absolute Lymphs (auto) Total Counted Differential Comment Platelet Estimate Hypochromasia Anisocytosis PT INR Sodium 140 Potassium 4.3 Chloride 105 Carbon Dioxide 27.0 Anion Gap 8 BUN 27 H Creatinine 1.09 H Estim Creat Clear Calc 42.87 Est GFR (MDRD) Af Amer 68 Est GFR (MDRD) Non-Af 56 L BUN/Creatinine Ratio 24.8 H Glucose 156 H Lactic Acid 1.4 Calcium 8.0 L Total Bilirubin Direct Bilirubin AST ALT Alkaline Phosphatase Total Protein Albumin Globulin Urine Color Urine Clarity Urine pH Ur Specific Herm[place] Urine Protein Urine Glucose (UA) Urine Ketones Urine Occult Blood Urine Nitrite Urine Bilirubin Urine Urobilinogen Ur Leukocyte Esterase Urine RBC Urine WBC Ur Squamous Epith Cells Urine Bacteria Urine Mucus Assessment/Plan Patient seen and examined independently. Data reviewed. I agree with the above note by the nurse practitioner. 1. Severe sepsis Present on arrival Secondary to pneumonia versus UTI and bacteremia. Overall improved 2. Suspected gram-negative pneumonia Urinary antigens for strep to coccus and Legionella were negative. Continue with vancomycin and Zosyn 3. Urinary tract infection IV antibiotics as above Follow-up urine culture 4. Bacteremia Gram-positive cocci in chains Repeat blood cultures Concern is for Streptococcus given that morphology, will await final identification 5. Right knee pain Patient describes as chronic But given the patient's underlying septic picture and bacteremia, will check an x-ray to evaluate if there is any kind of effusion that may warrant arthrocentesis. Code Visit Inpatient E&M: 42069 Subs Hosp L2
--- NOTE | 2018-07-15 15:25 | RAD_ITS ---
STUDY: X-RAY - RIGHT KNEE REASON FOR EXAM: Female, 53 years old. Arthritis. TECHNIQUE: 2 view(s) of the knee. COMPARISON: None. FINDINGS: There is severe degenerative arthrosis of the medial femorotibial compartment with severe joint space narrowing. There is moderate degenerative arthrosis of the lateral femorotibial compartment with moderate joint space narrowing. There is severe degenerative arthrosis of the patellofemoral articulation. Normal visualized proximal fibula. Normal proximal tibiofibular articulation. RAD/Knee 1 or 2 Views IMPRESSION: Degenerative arthrosis. Electronically Signed: Zina Perez MD at 16:03 EST Tel , Service support ,
[2018-07-15] MEDS: AcetaZOLAMIDE 250 MG Tablet 125 MG PO (16:53)
[2018-07-15 17:12] LABS: Bedside Glucose 63 mg/dL (70-110)
--- NOTE | 2018-07-15 17:45 | NURSING ---
16:40: Pts fingerstick glucose was 62. Pt given OJ and peanut butter crackers to get level elevated. Pt instructed to increase PO intake also as her mouth and tongue/lips are dry and shiny. Pt voiced understanding.
[2018-07-15] MEDS: Gabapentin 300 MG Capsule PO (21:16)
[2018-07-15 21:36] LABS: Bedside Glucose 64 mg/dL (70-110)
[2018-07-15 21:36] LABS: Bedside Glucose 88 mg/dL (70-110)
[2018-07-16] VITALS (13 sets, daily range): BP systolic 117–125; BP diastolic 55–62; PULSE 64–72; RESP 14–18; TEMP 36.3–36.7; O2SAT 96–99
[2018-07-16] MEDS: Acetaminophen 325 MG Tablet 650 MG PO (04:48)
[2018-07-16] MEDS: Nystatin Powder 15gm Bottle 1 APPLIC TOPICAL ×2 (05:45→21:09)
[2018-07-16] MEDS: Menthol/Lanolin/Calamine/Znox 113 GM Tube 1 APPLIC TOPICAL ×3 (05:45→21:09)
[2018-07-16] MEDS: Heparin Injection (Vial) 5,000 UNIT/ML VIAL 5000 UNIT SC ×3 (05:46→21:10)
--- NOTE | 2018-07-16 06:26 | VDLE_ITS ---
Reason For Study: pain RIGHT LEFT GSV is normal. GSV is normal. CFV is compressible, spontaneous, phasic, CFV is compressible, spontaneous, phasic, competent and demonstrates normal competent, and demonstrates normal augmentation. augmentation. FV is compressible, spontaneous, phasic, FV is compressible, spontaneous, phasic, competent and demonstrates normal competent and demonstrates normal augmentation. augmentation. POP V is compressible, spontaneous, phasic, POP V is compressible, spontaneous, phasic, competent and demonstrates normal competent and demonstrates normal augmentation. augmentation. T/P Trunk is compressible. T/P Trunk is compressible. PTV is compressible. PTV is compressible. RT PerV is compressible. LT PerV is compressible. Procedure Exam performed portable in patient room. The exam was of fair technical quality due to pt body habitus. Limited study. Pt is 5'0 and 327.8 lbs. A preliminary report was called and/or faxed to the pt's RN. Interpretation Summary No evidence for acute deep venous thrombosis bilateral lower extremities with patent and compressible bilateral great saphenous veins. Ordering Physician: Holden Glez Performed By: Tony Padgett RVT
[2018-07-16 06:47] LABS: Hematocrit 30.1 % (37-47); Mean Corp Hgb Conc 26.6 g/gl (32-36); Mean Corpuscular Hgb 25.2 pg (27.0-32.0); Mean Platelet Vol. 9.6 fl (6.2-12.0); Platelet Count 155 K/mm3 (150-450); RBC Distribution Width CV 18.7 % (11.6-14.6); RBC Distribution Width SD 62.6 fl (35.1-43.9); Red Blood Count 3.17 M/mm3 (4.2-5.4); Scan Indicated on CBC? Y/N NO; White Blood Count 9.7 K/mm3 (4.4-11.0)
[2018-07-16 07:02] LABS: Bedside Glucose 85 mg/dL (70-110)
[2018-07-16 07:03] LABS: Anion Gap 7 (5-15); BUN 25 mg/dL (7-18); BUN/Creat Ratio 27.7 RATIO (10-20); Calcium,Total 8.2 mg/dL (8.5-10.1); Chloride 105 mmol/L (98-107); EST Glomerular Filtration Rate 69 mL/min (>60); Est Glom Filt Rate - Afr Amer 84 mL/min (>60); Estimated Creatinine Clearance 51.92 ml/min; Glucose 86 mg/dL (74-106); Potassium 4.1 mmol/L (3.5-5.1); Sodium Level 139 mmol/L (136-145)
[2018-07-16] MEDS: Ipratropium/Albuterol Sulfate 3 ML AMPUL.NEB INHALATION ×2 (07:48→12:55)
[2018-07-16] MEDS: AcetaZOLAMIDE 250 MG Tablet 125 MG PO ×2 (09:06→16:38)
[2018-07-16] MEDS: Pantoprazole Sodium 40 MG Tablet PO (09:06)
[2018-07-16] MEDS: Multivitamins,Therapeutic Tablet 1 TABLET PO (09:07)
[2018-07-16] MEDS: Metoprolol(XL)Succ 25 MG Tablet PO (09:07)
[2018-07-16] MEDS: guaiFENesin 1,200 MG Tablet 1200 MG PO ×2 (09:07→21:10)
[2018-07-16] MEDS: Glimepiride 2 MG Tablet PO (09:08)
[2018-07-16] MEDS: dilTIAZem CD 120 MG Capsule PO ×2 (09:08→21:09)
[2018-07-16] MEDS: Iron Polysaccharide Complex 150 MG CAPSULE PO (09:08)
--- NOTE | 2018-07-16 10:43 | PCM.HP.ID ---
Problem List (1) Bacteremia due to Streptococcus Status: Acute Reason for Consult: bacteremia Consulted by: Dr. Ladd History of Present Illness: The patient is a 53 year old F ECF resident who presented yesterday to ED with sudden onset of fever, not feeling well, mild dysuria, and R knee pain. Has some chronic SOB and non-productive cough, unchanged. No abd pain, n/v/d. Diffuse aches, has h/o arthritis, but new and worse pain in both knees, R more than L. Some R calf/madrid redness. No trauma recently. No recent abx, no recent skin infections. In ED, given vanc/zosyn, admitted. Bcx now with strep. Feeling a little better. Full ROS performed and neg except as noted above. - Medical History Past Medical History (Chronic Problems): Chronic Problems Ulcer of left thigh (Chronic) Yeast dermatitis (Chronic) PAF (paroxysmal atrial fibrillation) (Chronic) acute on chronic blood loss anemia (Chronic) Acute and chronic respiratory failure with hypoxia (Chronic) Acute on chronic diastolic heart failure (Chronic) Morbid obesity (Chronic) GERD (gastroesophageal reflux disease) (Chronic) Irritable bowel syndrome (Chronic) Overactive bladder (Chronic) Wide-complex tachycardia (Chronic) Chronic diastolic CHF (congestive heart failure) (Chronic) Type 2 diabetes mellitus (Chronic) HgbA1c 06/2016 6.5%. 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) Lymphedema (Chronic) Venous insufficiency (chronic) (peripheral) (Chronic) Allergies/Adverse Reactions: Allergies latex Allergy (Verified 06/24/18 05:09) Rash levofloxacin [From Levaquin] Adverse Reaction (Verified 06/24/18 05:09) SPEEDS UP MY HEART AND SHUTS DOWN MY KIDNEYS mushrooms Allergy (Uncoded 08/05/17 21:19) Anaphylaxis Home Medications: Ambulatory Orders Medication Instructions Recorded Albuterol Sulfate [Ventolin Hfa] 2 puff INHALATION Q4H PRN PRN 01/08/17 Pantoprazole Sodium [Protonix] 40 mg PO DAILY 02/13/17 Dicyclomine HCl [Bentyl] 20 mg PO Q6H PRN PRN 03/10/17 Multivitamin [Daily Multiple 1 each PO DAILY 08/05/17 Vitamin] Menthol/Lanolin/Calamine/Znox 1 applic TOPICAL TID tube 10/21/17 [Calmoseptine Ointment] Nystatin Powder [Mycostatin Powder] 1 applic TOPICAL 0600,2200 #1 10/21/17 bottle AcetaAZOLAMIDE [Diamox] 125 mg PO TID tablet 01/12/18 Acetaminophen [Tylenol] 1,000 mg PO Q8H PRN tablet 01/12/18 Cyclobenzaprine [Flexeril] 10 mg PO TID PRN PRN #90 tab 01/12/18 Diltiazem CD [Cardizem CD] 120 mg PO BID capsule 01/12/18 Gabapentin [Neurontin] 300 mg PO HS #30 cap 01/12/18 Metoprolol(XL)Succ [Toprol Xl 25 mg PO DAILY tablet 01/12/18 (Beta Vikki)] Nutritional Supplement [Saul - 1 packet PO BIDCM packet 01/12/18 ORANGE FLAVOR] Glimepiride [Amaryl] 2 mg PO DAILY 06/24/18 Iron Poly/Vit C [Niferex-150] 150 mg PO DAILYCM #30 capsule 06/26/18 Guaifenesin [Robitussin] 10 ml PO Q4H PRN PRN 07/15/18 Iron Poly/Vit C [Niferex-150] 150 mg PO DAILYCM 07/15/18 Loperamide HCl [Imodium A-D] 2 mg PO 07/15/18 Magnesium Hydroxide [Milk Of 30 ml PO DAILY PRN PRN 07/15/18 Magnesia] - Social History SMOKING STATUS:: Former smoker Vital Signs Temp Pulse Resp BP Pulse Ox 97.6 F L 72 18 117/55 L 98 07/16/18 09:00 07/16/18 09:07 07/16/18 09:00 07/16/18 09:07 07/16/18 09:00 Oxygen Flow Rate (L/min) 3 Oxygen Delivery Method Nasal Cannula Weight: 149 kg Body Mass Index (BMI) 64.1 Microbiology Past 72 Hours 07/15/18 02:20 Blood Culture - Preliminary Blood Culture (Wb) - Anticubital Right Gram Positive Cocci 07/15/18 02:10 Bacteria Detection (PCR) - Final Blood Culture (Wb) - Left Forearm Streptococcus pyogenes Blood Culture - Preliminary Streptococcus group A 07/15/18 08:20 Respiratory Panel (PCR) - Final Mucosa - Nasopharyngeal 07/15/18 04:10 Streptococcus pneumoniae Antigen (M - Final Urine, Clean Catch 07/15/18 04:10 Legionella Antigen - Final Urine, Clean Catch 07/15/18 00:30 Influenza Types A,B Direct FA (JENNIFER) - Final Mucosa - Nose Laboratory Tests Past 24 Hrs 07/16/18 07/16/18 06:15 06:15 WBC 9.7 RBC 3.17 L Hgb 8.0 L Hct 30.1 L MCV 95.0 MCH 25.2 L MCHC 26.6 L RDW 18.7 H RDW Differential 62.6 H Plt Count 155 MPV 9.6 Sodium 139 Potassium 4.1 Chloride 105 Carbon Dioxide 27.0 Anion Gap 7 BUN 25 H Creatinine 0.90 Estim Creat Clear Calc 51.92 Est GFR (MDRD) Af Amer 84 Est GFR (MDRD) Non-Af 69 BUN/Creatinine Ratio 27.7 H Glucose 86 Calcium 8.2 L - Other Studies Radiology: [] reviewed Other Studies: [] Route of nutrition/ use of supplements: [] Nutritional Intake: [] IV Site: [] Kent Catheter: [] - Physical Exam General: Alert, Oriented x3, Cooperative, No apparent distress HEENT: Atraumatic, PERRLA, EOMI Neck: Supple, No Nodes Lungs: Clear to auscultation, Normal air movement Cardiovascular: Regular rate, Regular Rhythm, Murmur Abdomen: Soft, Non Tender, Non-Distended, Obese Extremities: Edema Skin: - - R calf redness, warmth, mild tenderness IV Site: Peripheral, without redness Musculoskeletal: - - R knee with tenderness, worse with movement Neurological: Cranial nerves II-XII grossly intact - Assessment/Plan Antibiotics: [] Assessment/Plan: [] Active and Suspected Problems Sepsis (Acute) HCAP (healthcare-associated pneumonia) (Acute) UTI (urinary tract infection) (Acute) Severe sepsis (fever, leukocytosis, CLEO, elevated lactate) due to GAS bacteremia from unclear source. CXR with bibasilar infiltrates, but no new respiratory symptoms. UA with pyuria, and some dysuria; ucx pending. R knee pain, redness. Xray done, doppler pending. May represent hematogenous spread of bacteremia; will consult ortho for eval. Narrow vanc/zosyn to ceftriaxone. Will follow, thank you, d/w primary team.
[2018-07-16 11:31] LABS: Bedside Glucose 120 mg/dL (70-110)
--- NOTE | 2018-07-16 13:55 | CASEMGMT ---
SW has tried several times to talk with patient about Palliative Care. However, she is sleeping and does not stay awake when SW wakes her up to talk. KHUSHBOO will continue to try. Lilian ZHOU MSW
--- NOTE | 2018-07-16 14:21 | CASEMGMT ---
[facility] called [facility] and said [facility] is requesting therapy notes from today. KHUSHBOO sent them to [facility] however, patient refused therapy today. She may get denied. Lilian ZHOU MSW
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
--- NOTE | 2018-07-16 15:24 | CASEMGMT ---
KHUSHBOO spoke with a nurse reviewer from [facility] [place]. She was asking when patient is being discharged. KHUSHBOO told her it may be over the weekend. She said she will hold off on sending her case to the biomedical equipment support specialist. She said she will talk with SW tomorrow. She said if patient continues to refuse therapy she is not going to get approved. KHUSHBOO will talk with patient. Lilian COSTA
[2018-07-16] MEDS: Acetaminophen 500 MG Tablet 1000 MG PO (15:41)
--- NOTE | 2018-07-16 16:07 | PCM.PN.HOSP ---
Patient Problems: Active and Suspected Problems Sepsis (Acute) HCAP (healthcare-associated pneumonia) (Acute) UTI (urinary tract infection) (Acute) Bacteremia due to Streptococcus (Acute) Subjective: still with pain. Vitals/I&O's: Vital Signs Temp Pulse Resp BP Pulse Ox 36.3 C L 65 16 123/62 H 98 07/16/18 15:00 07/16/18 15:00 07/16/18 15:00 07/16/18 15:00 07/16/18 15:00 Oxygen Flow Rate (L/min) 2 Oxygen Delivery Method Nasal Cannula Weight: 149 kg Body Mass Index (BMI) 64.1 Intake and Output for Last 24 Hours 07/14/18 07/15/18 07/16/18 23:59 23:59 23:59 Intake Total 3473.6 / 3473.6 1532 / 1532 Output Total 1200 / 1200 1100 / 1100 Balance 2273.6 / 2273.6 432 / 432 General: - - listless. afebrile. opens eyes briefly during encounter. HEENT: Atraumatic, Normocephalic Oral: Moist Mucosa, No Gingival or Mucosal Lesions/ Ulcerations Neck: No Nodes, Thyroid Normal Size and Texture Lungs: Clear to auscultation, Normal air movement, No rhonchi, No wheeze Cardiovascular: Regular rate, Regular Rhythm, Normal S1, Normal S2, No murmurs Abdomen: Bowel Sounds Present, Soft, Non Tender, Non-Distended, Obese Extremities: No Calf Tenderness, Edema Skin: - - erythema of RLE. Psych/Mental Status: Flat Affect Microbiology Past 72 Hours 07/15/18 04:10 Urine, Catheterized Urine Culture - Preliminary GNR lactose dairy associate 07/15/18 02:20 Blood Culture (Wb) - Anticubital Right Blood Culture - Preliminary Gram Positive Cocci 07/15/18 02:10 Blood Culture (Wb) - Left Forearm Bacteria Detection (PCR) - Final Streptococcus pyogenes 07/15/18 02:10 Blood Culture (Wb) - Left Forearm Blood Culture - Preliminary Streptococcus group A 07/15/18 08:20 Mucosa - Nasopharyngeal Respiratory Panel (PCR) - Final 07/15/18 04:10 Urine, Clean Catch Streptococcus pneumoniae Antigen (M - Final 07/15/18 04:10 Urine, Clean Catch Legionella Antigen - Final 07/15/18 00:30 Mucosa - Nose Influenza Types A,B Direct FA (JENNIFER) - Final Laboratory Results 07/15/18 16:39: POC Glucose 63 L 07/15/18 21:08: POC Glucose 64 L 07/15/18 21:32: POC Glucose 88 07/16/18 06:15: WBC 9.7, RBC 3.17 L, Hgb 8.0 L, Hct 30.1 L, MCV 95.0, MCH 25.2 L, MCHC 26.6 L, RDW 18.7 H, RDW Differential 62.6 H, Plt Count 155, MPV 9.6 07/16/18 06:15: Sodium 139, Potassium 4.1, Chloride 105, Carbon Dioxide 27.0, Anion Gap 7, BUN 25 H, Creatinine 0.90, Estim Creat Clear Calc 51.92, Est GFR (MDRD) Af Amer 84, Est GFR (MDRD) Non-Af 69, BUN/Creatinine Ratio 27.7 H, Glucose 86, Calcium 8.2 L 07/16/18 06:52: POC Glucose 85 07/16/18 11:22: POC Glucose 120 H Current Medications Acetaminophen (Tylenol) 1,000 mg PO Q8H PRN PRN PRN Reason: PAIN Last Admin: 07/16/18 15:41 Dose: 1,000 mg Acetazolamide (Diamox) 125 mg PO TIDCM [facility] Last Admin: 07/16/18 14:34 Dose: Not Given Albuterol Sulfate (Ventolin Aerosols) 2.5 mg INHALATION Q2H PRN PRN PRN Reason: SHORTNESS OF BREATH Albuterol/Ipratropium (Duoneb) 3 ml INHALATION Q6H.RT [facility] Last Admin: 07/16/18 12:55 Dose: 3 ml Benzonatate (Tessalon Perle) 100 mg PO TID PRN PRN PRN Reason: COUGH Calamine/Phenol (Calmoseptine Ointment) 1 applic TOPICAL TID [facility]; Protocol Last Admin: 07/16/18 15:42 Dose: 1 applicatio Cyclobenzaprine HCl (Flexeril) 10 mg PO TID PRN PRN PRN Reason: muscle spasms Dicyclomine HCl (Bentyl) 20 mg PO Q6H PRN PRN PRN Reason: abd pain Diltiazem HCl (Cardizem Cd) 120 mg PO BID [facility] Last Admin: 07/16/18 09:08 Dose: 120 mg Gabapentin (Neurontin) 300 mg PO HS [facility] Last Admin: 07/15/18 21:16 Dose: 300 mg Glimepiride (Amaryl) 2 mg PO DAILYCM [facility] Last Admin: 07/16/18 09:08 Dose: 2 mg Guaifenesin (Mucinex) 1,200 mg PO BID [facility] Last Admin: 07/16/18 09:07 Dose: 1,200 mg Heparin Sodium (Porcine) (Heparin Na) 5,000 unit SC Q8 [facility] Last Admin: 07/16/18 15:41 Dose: 5,000 unit Ceftriaxone Sodium 2 gm/ (Sodium Chloride) 50 mls @ 100 mls/hr IV Q24 [facility] Last Admin: 07/16/18 10:53 Dose: 100 mls/hr Insulin Human Lispro (Humalog Kwikpen (Bkc)) 0 unit SC ACHS [facility]; Protocol Last Admin: 07/16/18 11:32 Dose: Not Given Magnesium Hydroxide (Milk Of Magnesia) 30 ml PO DAILY PRN PRN Reason: Constipation Metoprolol Succinate (Toprol Xl (Beta Vikki)) 25 mg PO DAILY [facility] Last Admin: 07/16/18 09:07 Dose: 25 mg Multivitamins (Multivitamin) 1 tablet PO DAILY@0800 [facility] Last Admin: 07/16/18 09:07 Dose: 1 tablet Nystatin (Mycostatin Powder) 1 applic TOPICAL 0600,2200 [facility]; Protocol Last Admin: 07/16/18 05:45 Dose: 1 applicatio Ondansetron HCl (Zofran) 4 mg IV Q8H PRN PRN PRN Reason: NAUSEA Pantoprazole Sodium (Protonix) 40 mg PO DAILY [facility] Last Admin: 07/16/18 09:06 Dose: 40 mg Polysaccharide [facility] 150[facility] Admin: 07/16/18 09:08 Dose: 150 mg Medical Necessity - Tobacco Use Smoking Status: Former smoker Assessment/Plan All Active Problems Sepsis (Acute) HCAP (healthcare-associated pneumonia) (Acute) UTI (urinary tract infection) (Acute) Bacteremia due to Streptococcus (Acute) History of necrotizing fasciitis (Acute) CAP (community acquired pneumonia) (Acute) Lower GI bleed (Resolved) Acute on chronic diastolic heart failure (Acute) Acute bronchitis with asthma with acute exacerbation (Acute) Shortness of breath (Acute) Acute bronchitis (Acute) Atrial fibrillation with RVR (Acute) Otitis externa (Acute) Metabolic alkalosis (Acute) Blood in stool (Acute) Anemia (Acute) Abdominal pain (Resolved) 1. Severe sepsis Present on arrival Secondary to pneumonia versus UTI, cellulitis and bacteremia. Overall improved 2. Suspected gram-negative pneumonia Urinary antigens for strep to coccus and Legionella were negative. 3. Possible Urinary tract infection only 11-25k CFU of GNR follow up culture 4. Bacteremia Strep pyogenes 2/2 cellulitis Repeat blood cultures ID following. 5. RLE cellulitis now present on leg CTX 6. Right knee pain Patient describes as chronic But given the patient's underlying septic picture and bacteremia, will check an x-ray to evaluate if there is any kind of effusion that may warrant arthrocentesis. Code Visit Inpatient E&M: 41503 Subs Hosp L2
--- NOTE | 2018-07-16 16:12 | PN_ITS ---
Patient Problems: Active and Suspected Problems Sepsis (Acute) HCAP (healthcare-associated pneumonia) (Acute) UTI (urinary tract infection) (Acute) Bacteremia due to Streptococcus (Acute) Subjective: still with pain. Vitals/I&O's: Vital Signs Temp Pulse Resp BP Pulse Ox 36.3 C L 65 16 123/62 H 98 07/16/18 15:00 07/16/18 15:00 07/16/18 15:00 07/16/18 15:00 07/16/18 15:00 Oxygen Flow Rate (L/min) 2 Oxygen Delivery Method Nasal Cannula Weight: 149 kg Body Mass Index (BMI) 64.1 Intake and Output for Last 24 Hours 07/14/18 07/15/18 07/16/18 23:59 23:59 23:59 Intake Total 3473.6 / 3473.6 1532 / 1532 Output Total 1200 / 1200 1100 / 1100 Balance 2273.6 / 2273.6 432 / 432 General: - - listless. afebrile. opens eyes briefly during encounter. HEENT: Atraumatic, Normocephalic Oral: Moist Mucosa, No Gingival or Mucosal Lesions/ Ulcerations Neck: No Nodes, Thyroid Normal Size and Texture Lungs: Clear to auscultation, Normal air movement, No rhonchi, No wheeze Cardiovascular: Regular rate, Regular Rhythm, Normal S1, Normal S2, No murmurs Abdomen: Bowel Sounds Present, Soft, Non Tender, Non-Distended, Obese Extremities: No Calf Tenderness, Edema Skin: - - erythema of RLE. Psych/Mental Status: Flat Affect Microbiology Past 72 Hours 07/15/18 04:10 Urine, Catheterized Urine Culture - Preliminary GNR lactose psychologist research assistant 07/15/18 02:20 Blood Culture (Wb) - Anticubital Right Blood Culture - Preliminary Gram Positive Cocci 07/15/18 02:10 Blood Culture (Wb) - Left Forearm Bacteria Detection (PCR) - Final Streptococcus pyogenes 07/15/18 02:10 Blood Culture (Wb) - Left Forearm Blood Culture - Preliminary Streptococcus group A 07/15/18 08:20 Mucosa - Nasopharyngeal Respiratory Panel (PCR) - Final 07/15/18 04:10 Urine, Clean Catch Streptococcus pneumoniae Antigen (M - Final 07/15/18 04:10 Urine, Clean Catch Legionella Antigen - Final 07/15/18 00:30 Mucosa - Nose Influenza Types A,B Direct FA (JENNIFER) - Final Laboratory Results 07/15/18 16:39: POC Glucose 63 L 07/15/18 21:08: POC Glucose 64 L 07/15/18 21:32: POC Glucose 88 07/16/18 06:15: WBC 9.7, RBC 3.17 L, Hgb 8.0 L, Hct 30.1 L, MCV 95.0, MCH 25.2 L , MCHC 26.6 L, RDW 18.7 H, RDW Differential 62.6 H, Plt Count 155, MPV 9.6 07/16/18 06:15: Sodium 139, Potassium 4.1, Chloride 105, Carbon Dioxide 27.0, Anion Gap 7, BUN 25 H, Creatinine 0.90, Estim Creat Clear Calc 51.92, Est GFR (MDRD) Af Amer 84, Est GFR (MDRD) Non-Af 69, BUN/Creatinine Ratio 27.7 H, Glucose 86, Calcium 8.2 L 07/16/18 06:52: POC Glucose 85 07/16/18 11:22: POC Glucose 120 H Current Medications Acetaminophen (Tylenol) 1,000 mg PO Q8H PRN PRN PRN Reason: PAIN Last Admin: 07/16/18 15:41 Dose: 1,000 mg Acetazolamide (Diamox) 125 mg PO TIDCM [facility] Last Admin: 07/16/18 14:34 Dose: Not Given Albuterol Sulfate (Ventolin Aerosols) 2.5 mg INHALATION Q2H PRN PRN PRN Reason: SHORTNESS OF BREATH Albuterol/Ipratropium (Duoneb) 3 ml INHALATION Q6H.RT [facility] Last Admin: 07/16/18 12:55 Dose: 3 ml Benzonatate (Tessalon Perle) 100 mg PO TID PRN PRN PRN Reason: COUGH Calamine/Phenol (Calmoseptine Ointment) 1 applic TOPICAL TID [facility]; Protocol Last Admin: 07/16/18 15:42 Dose: 1 applicatio Cyclobenzaprine HCl (Flexeril) 10 mg PO TID PRN PRN PRN Reason: muscle spasms Dicyclomine HCl (Bentyl) 20 mg PO Q6H PRN PRN PRN Reason: abd pain Diltiazem HCl (Cardizem Cd) 120 mg PO BID [facility] Last Admin: 07/16/18 09:08 Dose: 120 mg Gabapentin (Neurontin) 300 mg PO HS [facility] Last Admin: 07/15/18 21:16 Dose: 300 mg Glimepiride (Amaryl) 2 mg PO DAILYCM [facility] Last Admin: 07/16/18 09:08 Dose: 2 mg Guaifenesin (Mucinex) 1,200 mg PO BID [facility] Last Admin: 07/16/18 09:07 Dose: 1,200 mg Heparin Sodium (Porcine) (Heparin Na) 5,000 unit SC Q8 [facility] Last Admin: 07/16/18 15:41 Dose: 5,000 unit Ceftriaxone Sodium 2 gm/ (Sodium Chloride) 50 mls @ 100 mls/hr IV Q24 [facility] Last Admin: 07/16/18 10:53 Dose: 100 mls/hr Insulin Human Lispro (Humalog Kwikpen (Bkc)) 0 unit SC ACHS [facility]; Protocol Last Admin: 07/16/18 11:32 Dose: Not Given Magnesium Hydroxide (Milk Of Magnesia) 30 ml PO DAILY PRN PRN Reason: Constipation Metoprolol Succinate (Toprol Xl (Beta Vikki)) 25 mg PO DAILY [facility] Last Admin: 07/16/18 09:07 Dose: 25 mg Multivitamins (Multivitamin) 1 tablet PO DAILY@0800 [facility] Last Admin: 07/16/18 09:07 Dose: 1 tablet Nystatin (Mycostatin Powder) 1 applic TOPICAL 0600,2200 [facility]; Protocol Last Admin: 07/16/18 05:45 Dose: 1 applicatio Ondansetron HCl (Zofran) 4 mg IV Q8H PRN PRN PRN Reason: NAUSEA Pantoprazole Sodium (Protonix) 40 mg PO DAILY [facility] Last Admin: 07/16/18 09:06 Dose: 40 mg Polysaccharide [facility] ([facility]rex 150) [facility] Last Admin: 07/16/18 09:08 Dose: 150 mg Medical Necessity - Tobacco Use Smoking Status: Former smoker Assessment/Plan All Active Problems Sepsis (Acute) HCAP (healthcare-associated pneumonia) (Acute) UTI (urinary tract infection) (Acute) Bacteremia due to Streptococcus (Acute) History of necrotizing fasciitis (Acute) CAP (community acquired pneumonia) (Acute) Lower GI bleed (Resolved) Acute on chronic diastolic heart failure (Acute) Acute bronchitis with asthma with acute exacerbation (Acute) Shortness of breath (Acute) Acute bronchitis (Acute) Atrial fibrillation with RVR (Acute) Otitis externa (Acute) Metabolic alkalosis (Acute) Blood in stool (Acute) Anemia (Acute) Abdominal pain (Resolved) 1. Severe sepsis Present on arrival Secondary to pneumonia versus UTI, cellulitis and bacteremia. Overall improved 2. Suspected gram-negative pneumonia Urinary antigens for strep to coccus and Legionella were negative. 3. Possible Urinary tract infection only 11-25k CFU of GNR follow up culture 4. Bacteremia Strep pyogenes 2/2 cellulitis Repeat blood cultures ID following. 5. RLE cellulitis now present on leg CTX 6. Right knee pain Patient describes as chronic But given the patient's underlying septic picture and bacteremia, will check an x-ray to evaluate if there is any kind of effusion that may warrant arthrocentesis. Code Visit Inpatient E&M: 36592 Subs Hosp L2
[2018-07-16 17:12] LABS: Bedside Glucose 67 mg/dL (70-110)
[2018-07-16 17:12] LABS: Bedside Glucose 71 mg/dL (70-110)
[2018-07-16] MEDS: Gabapentin 300 MG Capsule PO (21:10)
[2018-07-16 22:16] LABS: Bedside Glucose 85 mg/dL (70-110)
[2018-07-16] MEDS: Zolpidem Tartrate 5 MG Tablet PO (22:27)
[2018-07-17] VITALS (7 sets, daily range): BP systolic 121–135; BP diastolic 53–74; PULSE 69–97; RESP 16; TEMP 36.2–37; O2SAT 95–100
[2018-07-17] MEDS: Nystatin Powder 15gm Bottle 1 APPLIC TOPICAL ×2 (05:17→22:36)
[2018-07-17] MEDS: Heparin Injection (Vial) 5,000 UNIT/ML VIAL 5000 UNIT SC ×3 (05:18→22:36)
[2018-07-17] MEDS: Menthol/Lanolin/Calamine/Znox 113 GM Tube 1 APPLIC TOPICAL ×2 (05:18→14:39)
[2018-07-17 06:51] LABS: Bedside Glucose 85 mg/dL (70-110)
[2018-07-17] MEDS: Multivitamins,Therapeutic Tablet 1 TABLET PO (08:22)
[2018-07-17] MEDS: Iron Polysaccharide Complex 150 MG CAPSULE PO (08:23)
[2018-07-17] MEDS: AcetaZOLAMIDE 250 MG Tablet 125 MG PO ×3 (08:23→17:12)
[2018-07-17] MEDS: Glimepiride 2 MG Tablet PO (08:23)
[2018-07-17] MEDS: Metoprolol(XL)Succ 25 MG Tablet PO (09:20)
[2018-07-17] MEDS: guaiFENesin 1,200 MG Tablet 1200 MG PO ×2 (09:20→22:36)
[2018-07-17] MEDS: Pantoprazole Sodium 40 MG Tablet PO (09:20)
[2018-07-17] MEDS: dilTIAZem CD 120 MG Capsule PO ×2 (09:20→22:36)
--- NOTE | 2018-07-17 09:24 | CASEMGMT ---
KHUSHBOO spoke with patient this am. KHUSHBOO told her that her insurance called SW yesterday and said they are not going to approve her unless she participates in therapy. She said she plans on doing therapy today. KHUSHBOO told her that [facility] said she is getting close to her co-pay days. SW asked if she would like to complete a Medicaid application to pay the co-pays. She declined stating she will just go home. KHUSHBOO then spoke with her about Palliative Care. She said she has already talked with Palliative Care and is not interested. KHUSHBOO called Connor from [facility] and left him a message about patient. Patient appears to be very depressed and would benefit from talking with Behavioral Health. Lilian ZHOU MSW
--- NOTE | 2018-07-17 09:39 | PCM.PN.ORT ---
Patient Problems: Active and Suspected Problems Sepsis (Acute) HCAP (healthcare-associated pneumonia) (Acute) UTI (urinary tract infection) (Acute) Bacteremia due to Streptococcus (Acute) Subjective: Patient reports right knee pain no worse, but not appreciably better. Denies fevers, chills, nausea or vomiting. - Physical Exam General: Alert, Oriented x3, No apparent distress Extremities: Tenderness - diffusely about RLE, cellulits about RLE with knee relatively spared. Palpation of knee is painful, but gentle active ROM is better tolerated today Vital Signs Temp Pulse Resp BP Pulse Ox 97.2 F L 97 16 132/74 H 99 07/17/18 09:00 07/17/18 09:20 07/17/18 09:00 07/17/18 09:20 07/17/18 09:00 Oxygen Flow Rate (L/min) 2 Oxygen Delivery Method Room Air Weight: 328 lb 7.82 oz Body Mass Index (BMI) 64.1 Intake and Output for Last 24 Hours 07/15/18 07/16/18 07/17/18 23:59 23:59 23:59 Intake Total 3473.6 / 3473.6 1772 / 1772 Output Total 1200 / 1200 1250 / 1250 100 / 100 Balance 2273.6 / 2273.6 522 / 522 -100 / -100 Microbiology Past 72 Hours 07/15/18 04:10 Urine Culture - Final Urine, Catheterized Klebsiella pneumoniae sp pneum 07/15/18 02:20 Blood Culture - Preliminary Blood Culture (Wb) - Anticubital Right Gram Positive Cocci 07/15/18 02:10 Bacteria Detection (PCR) - Final Blood Culture (Wb) - Left Forearm Streptococcus pyogenes Blood Culture - Preliminary Streptococcus group A 07/15/18 08:20 Respiratory Panel (PCR) - Final Mucosa - Nasopharyngeal 07/15/18 04:10 Streptococcus pneumoniae Antigen (M - Final Urine, Clean Catch 07/15/18 04:10 Legionella Antigen - Final Urine, Clean Catch 07/15/18 00:30 Influenza Types A,B Direct FA (JENNIFER) - Final Mucosa - Nose POC Glucose 07/17/18 07/16/18 07/16/18 06:48 21:02 17:00 POC Glucose 85 85 71 07/16/18 07/16/18 16:35 11:22 POC Glucose 67 L 120 H Medical Necessity - Tobacco Use Smoking Status: Former smoker Assessment/Plan All Active Problems Sepsis (Acute) HCAP (healthcare-associated pneumonia) (Acute) UTI (urinary tract infection) (Acute) Bacteremia due to Streptococcus (Acute) History of necrotizing fasciitis (Acute) CAP (community acquired pneumonia) (Acute) Lower GI bleed (Resolved) Acute on chronic diastolic heart failure (Acute) Acute bronchitis with asthma with acute exacerbation (Acute) Shortness of breath (Acute) Acute bronchitis (Acute) Atrial fibrillation with RVR (Acute) Otitis externa (Acute) Metabolic alkalosis (Acute) Blood in stool (Acute) Anemia (Acute) Abdominal pain (Resolved) Cellulitis RLE doubt septic arthritis right knee -- Patient is afebrile and white count is not elevated Would continue current antibiotic regimen Will re-evaluate at your request
--- NOTE | 2018-07-17 11:08 | CASEMGMT ---
KHUSHBOO spoke with Gladis from [facility]. She asked KHUSHBOO if patient was going to be on IV antibiotics at d/c, when she was ready for discharge, and she needed today's therapy notes. KHUSHBOO obtained this information. KHUSHBOO faxed all information as well as left message for Gladis at [facility]. A short time later Gladis called KHUSHBOO and she said she is sending it to medical review as patient still did not really participate in therapy. She will let KHUSHBOO know when she gets an answer. Lilian ZHOU DIRECTOR BEHAVIORAL HEALTH
[2018-07-17 12:17] LABS: Bedside Glucose 114 mg/dL (70-110)
--- NOTE | 2018-07-17 12:19 | PCM.PN.HOSP ---
Patient Problems: Active and Suspected Problems Sepsis (Acute) HCAP (healthcare-associated pneumonia) (Acute) UTI (urinary tract infection) (Acute) Bacteremia due to Streptococcus (Acute) Subjective: Denies any complaints. Vitals/I&O's: Vital Signs Temp Pulse Resp BP Pulse Ox 36.2 C L 97 16 132/74 H 99 07/17/18 09:00 07/17/18 09:20 07/17/18 09:00 07/17/18 09:20 07/17/18 09:00 Oxygen Flow Rate (L/min) 3 Oxygen Delivery Method Room Air Weight: 149 kg Body Mass Index (BMI) 64.1 Intake and Output for Last 24 Hours 07/15/18 07/16/18 07/17/18 23:59 23:59 23:59 Intake Total 3473.6 / 3473.6 1772 / 1772 Output Total 1200 / 1200 1250 / 1250 100 / 100 Balance 2273.6 / 2273.6 522 / 522 -100 / -100 General: Alert, Cooperative, No apparent distress HEENT: Atraumatic, Normocephalic Oral: Moist Mucosa, No Gingival or Mucosal Lesions/ Ulcerations Neck: No Nodes, Thyroid Normal Size and Texture Lungs: Clear to auscultation, Normal air movement, No rhonchi, No wheeze Cardiovascular: Regular rate, Regular Rhythm, Normal S1, Normal S2, No murmurs Abdomen: Bowel Sounds Present, Soft, Non Tender, Non-Distended, No Hepato-splenomegaly, Obese Extremities: No edema, No Calf Tenderness Skin: - - decreased erythema RLE Musculoskeletal: No Tenderness to Palpation of Joints or Extremities, No Muscle Wasting Psych/Mental Status: Flat Affect Microbiology Past 72 Hours 07/15/18 04:10 Urine, Catheterized Urine Culture - Final Klebsiella pneumoniae sp pneum 07/15/18 02:20 Blood Culture (Wb) - Anticubital Right Blood Culture - Preliminary Gram Positive Cocci 07/15/18 02:10 Blood Culture (Wb) - Left Forearm Bacteria Detection (PCR) - Final Streptococcus pyogenes 07/15/18 02:10 Blood Culture (Wb) - Left Forearm Blood Culture - Preliminary Streptococcus group A 07/15/18 08:20 Mucosa - Nasopharyngeal Respiratory Panel (PCR) - Final 07/15/18 04:10 Urine, Clean Catch Streptococcus pneumoniae Antigen (M - Final 07/15/18 04:10 Urine, Clean Catch Legionella Antigen - Final 07/15/18 00:30 Mucosa - Nose Influenza Types A,B Direct FA (JENNIFER) - Final Laboratory Results 07/16/18 16:35: POC Glucose 67 L 07/16/18 17:00: POC Glucose 71 07/16/18 21:02: POC Glucose 85 07/17/18 06:48: POC Glucose 85 07/17/18 11:53: POC Glucose 114 H Current Medications Acetaminophen (Tylenol) 1,000 mg PO Q8H PRN PRN PRN Reason: PAIN Last Admin: 07/16/18 15:41 Dose: 1,000 mg Acetazolamide (Diamox) 125 mg PO TIDCM [facility] Last Admin: 07/17/18 11:59 Dose: 125 mg Albuterol Sulfate (Ventolin Aerosols) 2.5 mg INHALATION Q2H PRN PRN PRN Reason: SHORTNESS OF BREATH Albuterol/Ipratropium (Duoneb) 3 ml INHALATION Q6H.RT [facility] Last Admin: 07/17/18 06:58 Dose: Not Given Benzonatate (Tessalon Perle) 100 mg PO TID PRN PRN PRN Reason: COUGH Calamine/Phenol (Calmoseptine Ointment) 1 applic TOPICAL TID [facility]; Protocol Last Admin: 07/17/18 05:18 Dose: 1 applicatio Cyclobenzaprine HCl (Flexeril) 10 mg PO TID PRN PRN PRN Reason: muscle spasms Last Admin: 07/17/18 08:22 Dose: 10 mg Dicyclomine HCl (Bentyl) 20 mg PO Q6H PRN PRN PRN Reason: abd pain Diltiazem HCl (Cardizem Cd) 120 mg PO BID [facility] Last Admin: 07/17/18 09:20 Dose: 120 mg Gabapentin (Neurontin) 300 mg PO HS [facility] Last Admin: 07/16/18 21:10 Dose: 300 mg Glimepiride (Amaryl) 2 mg PO DAILYCM [facility] Last Admin: 07/17/18 08:23 Dose: 2 mg Guaifenesin (Mucinex) 1,200 mg PO BID [facility] Last Admin: 07/17/18 09:20 Dose: 1,200 mg Heparin Sodium (Porcine) (Heparin Na) 5,000 unit SC Q8 [facility] Last Admin: 07/17/18 05:18 Dose: 5,000 unit Ceftriaxone Sodium 2 gm/ (Sodium Chloride) 50 mls @ 100 mls/hr IV Q24 [facility] Last Admin: 07/17/18 09:29 Dose: 100 mls/hr Insulin Human Lispro (Humalog Kwikpen (Bkc)) 0 unit SC ACHS [facility]; Protocol Last Admin: 07/17/18 11:59 Dose: Not Given Magnesium Hydroxide (Milk Of Magnesia) 30 ml PO DAILY PRN PRN Reason: Constipation Metoprolol Succinate (Toprol Xl (Beta Vikki)) 25 mg PO DAILY [facility] Last Admin: 07/17/18 09:20 Dose: 25 mg Multivitamins (Multivitamin) 1 tablet PO DAILY@0800 [facility] Last Admin: 07/17/18 08:22 Dose: 1 tablet Nystatin (Mycostatin Powder) 1 applic TOPICAL 0600,2200 [facility]; Protocol Last Admin: 07/17/18 05:17 Dose: 1 applicatio Ondansetron HCl (Zofran) 4 mg IV Q8H PRN PRN PRN Reason: NAUSEA Pantoprazole Sodium (Protonix) 40 mg PO DAILY [facility] Last Admin: 07/17/18 09:20 Dose: 40 mg Polysaccharide Iron Complex (Ferrex 150) 150 mg PO DAILYCM [facility] Last Admin: 07/17/18 08:23 Dose: 150 mg Zolpidem Tartrate (Ambien (Generic)) 5 mg PO QHS PRN PRN PRN Reason: INSOMNIA Last Admin: 07/16/18 22:27 Dose: 5 mg Medical Necessity - Tobacco Use Smoking Status: Former smoker Assessment/Plan All Active Problems Sepsis (Acute) HCAP (healthcare-associated pneumonia) (Acute) UTI (urinary tract infection) (Acute) Bacteremia due to Streptococcus (Acute) History of necrotizing fasciitis (Acute) CAP (community acquired pneumonia) (Acute) Lower GI bleed (Resolved) Acute on chronic diastolic heart failure (Acute) Acute bronchitis with asthma with acute exacerbation (Acute) Shortness of breath (Acute) Acute bronchitis (Acute) Atrial fibrillation with RVR (Acute) Otitis externa (Acute) Metabolic alkalosis (Acute) Blood in stool (Acute) Anemia (Acute) Abdominal pain (Resolved) 1. Severe sepsis Present on arrival Secondary to UTI, cellulitis and bacteremia. Overall improved 2. Suspected gram-negative pneumonia Urinary antigens for strep to coccus and Legionella were negative. Ruled out 3. UTI Klebsiella on CTX 4. Bacteremia Strep pyogenes 2/2 cellulitis Repeat blood cultures negative ID following. 5. RLE cellulitis Resolving CTX 6. Right knee pain Patient describes as chronic But given the patient's underlying septic picture and bacteremia, will check an x-ray to evaluate if there is any kind of effusion that may warrant arthrocentesis. No surgical issues at this time 7. DVT proph: SQ heparin 8. Debility: Patient has declined therapy once. Worked with him very minimally today. Patient is very apathetic in regards to working with therapy. Patient is already expressed case management that she does not qualify for facility that she will reside there until her co-pay kicks and then she will go home. Given her apathy, patient is essentially unskillable Code Visit Inpatient E&M: 31778 Subs Hosp L2
--- NOTE | 2018-07-17 12:24 | PN_ITS ---
Patient Problems: Active and Suspected Problems Sepsis (Acute) HCAP (healthcare-associated pneumonia) (Acute) UTI (urinary tract infection) (Acute) Bacteremia due to Streptococcus (Acute) Subjective: Denies any complaints. Vitals/I&O's: Vital Signs Temp Pulse Resp BP Pulse Ox 36.2 C L 97 16 132/74 H 99 07/17/18 09:00 07/17/18 09:20 07/17/18 09:00 07/17/18 09:20 07/17/18 09:00 Oxygen Flow Rate (L/min) 3 Oxygen Delivery Method Room Air Weight: 149 kg Body Mass Index (BMI) 64.1 Intake and Output for Last 24 Hours 07/15/18 07/16/18 07/17/18 23:59 23:59 23:59 Intake Total 3473.6 / 3473.6 1772 / 1772 Output Total 1200 / 1200 1250 / 1250 100 / 100 Balance 2273.6 / 2273.6 522 / 522 -100 / -100 General: Alert, Cooperative, No apparent distress HEENT: Atraumatic, Normocephalic Oral: Moist Mucosa, No Gingival or Mucosal Lesions/ Ulcerations Neck: No Nodes, Thyroid Normal Size and Texture Lungs: Clear to auscultation, Normal air movement, No rhonchi, No wheeze Cardiovascular: Regular rate, Regular Rhythm, Normal S1, Normal S2, No murmurs Abdomen: Bowel Sounds Present, Soft, Non Tender, Non-Distended, No Hepato- splenomegaly, Obese Extremities: No edema, No Calf Tenderness Skin: - - decreased erythema RLE Musculoskeletal: No Tenderness to Palpation of Joints or Extremities, No Muscle Wasting Psych/Mental Status: Flat Affect Microbiology Past 72 Hours 07/15/18 04:10 Urine, Catheterized Urine Culture - Final Klebsiella pneumoniae sp pneum 07/15/18 02:20 Blood Culture (Wb) - Anticubital Right Blood Culture - Preliminary Gram Positive Cocci 07/15/18 02:10 Blood Culture (Wb) - Left Forearm Bacteria Detection (PCR) - Final Streptococcus pyogenes 07/15/18 02:10 Blood Culture (Wb) - Left Forearm Blood Culture - Preliminary Streptococcus group A 07/15/18 08:20 Mucosa - Nasopharyngeal Respiratory Panel (PCR) - Final 07/15/18 04:10 Urine, Clean Catch Streptococcus pneumoniae Antigen (M - Final 07/15/18 04:10 Urine, Clean Catch Legionella Antigen - Final 07/15/18 00:30 Mucosa - Nose Influenza Types A,B Direct FA (JENNIFER) - Final Laboratory Results 07/16/18 16:35: POC Glucose 67 L 07/16/18 17:00: POC Glucose 71 07/16/18 21:02: POC Glucose 85 07/17/18 06:48: POC Glucose 85 07/17/18 11:53: POC Glucose 114 H Current Medications Acetaminophen (Tylenol) 1,000 mg PO Q8H PRN PRN PRN Reason: PAIN Last Admin: 07/16/18 15:41 Dose: 1,000 mg Acetazolamide (Diamox) 125 mg PO TIDCM [facility] Last Admin: 07/17/18 11:59 Dose: 125 mg Albuterol Sulfate (Ventolin Aerosols) 2.5 mg INHALATION Q2H PRN PRN PRN Reason: SHORTNESS OF BREATH Albuterol/Ipratropium (Duoneb) 3 ml INHALATION Q6H.RT [facility] Last Admin: 07/17/18 06:58 Dose: Not Given Benzonatate (Tessalon Perle) 100 mg PO TID PRN PRN PRN Reason: COUGH Calamine/Phenol (Calmoseptine Ointment) 1 applic TOPICAL TID [facility]; Protocol Last Admin: 07/17/18 05:18 Dose: 1 applicatio Cyclobenzaprine HCl (Flexeril) 10 mg PO TID PRN PRN PRN Reason: muscle spasms Last Admin: 07/17/18 08:22 Dose: 10 mg Dicyclomine HCl (Bentyl) 20 mg PO Q6H PRN PRN PRN Reason: abd pain Diltiazem HCl (Cardizem Cd) 120 mg PO BID [facility] Last Admin: 07/17/18 09:20 Dose: 120 mg Gabapentin (Neurontin) 300 mg PO HS [facility] Last Admin: 07/16/18 21:10 Dose: 300 mg Glimepiride (Amaryl) 2 mg PO DAILYCM [facility] Last Admin: 07/17/18 08:23 Dose: 2 mg Guaifenesin (Mucinex) 1,200 mg PO BID [facility] Last Admin: 07/17/18 09:20 Dose: 1,200 mg Heparin Sodium (Porcine) (Heparin Na) 5,000 unit SC Q8 [facility] Last Admin: 07/17/18 05:18 Dose: 5,000 unit Ceftriaxone Sodium 2 gm/ (Sodium Chloride) 50 mls @ 100 mls/hr IV Q24 [facility] Last Admin: 07/17/18 09:29 Dose: 100 mls/hr Insulin Human Lispro (Humalog Kwikpen (Bkc)) 0 unit SC ACHS [facility]; Protocol Last Admin: 07/17/18 11:59 Dose: Not Given Magnesium Hydroxide (Milk Of Magnesia) 30 ml PO DAILY PRN PRN Reason: Constipation Metoprolol Succinate (Toprol Xl (Beta Vikki)) 25 mg PO DAILY [facility] Last Admin: 07/17/18 09:20 Dose: 25 mg Multivitamins (Multivitamin) 1 tablet PO DAILY@0800 [facility] Last Admin: 07/17/18 08:22 Dose: 1 tablet Nystatin (Mycostatin Powder) 1 applic TOPICAL 0600,2200 [facility]; Protocol Last Admin: 07/17/18 05:17 Dose: 1 applicatio Ondansetron HCl (Zofran) 4 mg IV Q8H PRN PRN PRN Reason: NAUSEA Pantoprazole Sodium (Protonix) 40 mg PO DAILY [facility] Last Admin: 07/17/18 09:20 Dose: 40 mg Polysaccharide Iron Complex (Ferrex 150) 150 mg PO DAILYCM [facility] Last Admin: 07/17/18 08:23 Dose: 150 mg Zolpidem Tartrate (Ambien (Generic)) 5 mg PO QHS PRN PRN PRN Reason: INSOMNIA Last Admin: 07/16/18 22:27 Dose: 5 mg Medical Necessity - Tobacco Use Smoking Status: Former smoker Assessment/Plan All Active Problems Sepsis (Acute) HCAP (healthcare-associated pneumonia) (Acute) UTI (urinary tract infection) (Acute) Bacteremia due to Streptococcus (Acute) History of necrotizing fasciitis (Acute) CAP (community acquired pneumonia) (Acute) Lower GI bleed (Resolved) Acute on chronic diastolic heart failure (Acute) Acute bronchitis with asthma with acute exacerbation (Acute) Shortness of breath (Acute) Acute bronchitis (Acute) Atrial fibrillation with RVR (Acute) Otitis externa (Acute) Metabolic alkalosis (Acute) Blood in stool (Acute) Anemia (Acute) Abdominal pain (Resolved) 1. Severe sepsis Present on arrival Secondary to UTI, cellulitis and bacteremia. Overall improved 2. Suspected gram-negative pneumonia Urinary antigens for strep to coccus and Legionella were negative. Ruled out 3. UTI Klebsiella on CTX 4. Bacteremia Strep pyogenes 2/2 cellulitis Repeat blood cultures negative ID following. 5. RLE cellulitis Resolving CTX 6. Right knee pain Patient describes as chronic But given the patient's underlying septic picture and bacteremia, will check an x-ray to evaluate if there is any kind of effusion that may warrant arthrocentesis. No surgical issues at this time 7. DVT proph: SQ heparin 8. Debility: Patient has declined therapy once. Worked with him very minimally today. Patient is very apathetic in regards to working with therapy. Patient is already expressed case management that she does not qualify for facility that she will reside there until her co-pay kicks and then she will go home. Given her apathy, patient is essentially unskillable Code Visit Inpatient E&M: 20165 Subs Hosp L2
[2018-07-17] MEDS: Ipratropium/Albuterol Sulfate 3 ML AMPUL.NEB INHALATION (13:17)
--- NOTE | 2018-07-17 13:48 | CASEMGMT ---
Received call from Gladis at [facility]. Patient has been denied for SNF due to lack of participation in therapy. SW let patient know this information. SW again offered to help apply for Medicaid. She declined stating she will go home. SW asked if her will be able to take her home. She said he is going to have to. SW offered to call him and she said no she will call him. She said she needs to know when she is leaving before she calls him. SW offered home health and she declined. KHUSHBOO let physician know this information. Plan: d/c home as her insurance denied her for SNF and she declines applying for Medicaid. She also declines home health and Palliative Care. Lilian ZHOU MSW
--- NOTE | 2018-07-17 15:59 | ECHOD_ITS ---
Reason For Study: Bacteremia, Murmur Procedure This was a 2D Doppler, Color Flow transthoracic echocardiogram. The study was technically difficult. Patient unable to roll onto Left side, scanned supine. Did not use Definity due to increased PAP. Exam performed portable in patient room. Left Ventricle Normal LV size. Left ventricular systolic function is normal. The estimated ejection fraction is 55 %. Normal diastology for age. No regional wall motion abnormalities noted. Right Ventricle Mildly dilated right ventricle. Mild global right ventricular systolic dysfunction. Atria Normal left atrium. Normal right atrium. Mitral Valve Normal mitral valve. Tricuspid Valve Normal tricuspid valve. Moderate (2+) tricuspid valve insufficiency. Pulmonary artery systolic pressure is 52 mmHg. Aortic Valve Trisinus/trileaflet aortic valve. Mild focal aortic valve calcification. Pulmonic Valve The pulmonic valve is not well visualized. Great Vessels Normal aortic root. The pulmonary artery is normal size. Normal inferior vena cava. Pericardium/Pleural No pericardial effusion. MMode/2D Measurements & Calculations LVIDd: 5.1 cm IVSd: 1.3 cm LVOT diam: 2.1 cm LVIDs: 3.6 cm LVPWd: 0.99 cm LVOT area: 3.6 cm2 RVDd: 5.2 cm FS: 30.1 % Ao root diam: 3.0 cm LAV(MOD-bp): 44.4 ml LA A4 area: 17.9 cm2 LAV(MOD-bp) Indexed: 17.2 ml/m2 LAV(MOD-sp2): 34.6 ml LAV(MOD-sp4): 55.5 ml LA dimension(2D): 3.8 cm RA A4 area: 15.7 cm2 Doppler Measurements & Calculations MV E max stevo: 109.9 cm/sec Lat Peak E' Stevo: 7.7 cm/sec Med Peak E' Stevo: 13.1 cm/sec MV A max stevo: 92.7 cm/sec E/E' lat: 14.2 E/E' med: 8.4 MV E/A: 1.2 Ao V2 max: 239.7 cm/sec LV V1 max: 149.0 cm/sec SV(LVOT): 123.8 ml Ao max P.0 mmHg LV V1 max P.9 mmHg Ao V2 mean: 159.4 cm/sec LV V1 mean P.7 mmHg Ao mean P.4 mmHg LV V1 mean: 114.4 cm/sec Ao V2 VTI: 49.5 cm LV V1 VTI: 34.6 cm VIDAL(I,D): 2.5 cm2 VIDAL(V,D): 2.2 cm2 PA V2 max: 170.0 cm/sec TR max stevo: 343.4 cm/sec TR max P.2 mmHg Interpretation Summary Normal LV size. Left ventricular systolic function is normal. The estimated ejection fraction is 55 %. Normal diastology for age. Moderate (2+) tricuspid valve insufficiency. Pulmonary artery systolic pressure is 52 mmHg. Compared to prior study, there is no significant change. Structurally normal valves. There is no evidence of a mass or vegetation. This does not rule out endocarditis. Ordering Physician: Ja Villa Referring Physician: Merrick Mace Performed By: Shaila Haskins, DINA, RVT
--- NOTE | 2018-07-17 16:00 | PCM.PN.ID ---
Patient Problems: Active and Suspected Problems Sepsis (Acute) HCAP (healthcare-associated pneumonia) (Acute) UTI (urinary tract infection) (Acute) Bacteremia due to Streptococcus (Acute) Subjective: Feeling ok, no fever, knee pain unchanged. Breathing ok. - Physical Exam General: Alert, Cooperative, No apparent distress Lungs: Clear to auscultation, Normal air movement, Diminished Cardiovascular: Regular rate, Regular Rhythm, Murmur Abdomen: Soft, Non Tender, Non-Distended Extremities: - - R knee significant pain with touch/movement Skin: Rash Present - L calf Vital Signs Temp Pulse Resp BP Pulse Ox 98.4 F 79 16 121/53 H 95 07/17/18 15:00 07/17/18 15:00 07/17/18 15:00 07/17/18 15:00 07/17/18 15:00 Oxygen Flow Rate (L/min) 2 Oxygen Delivery Method Nasal Cannula Weight: 149 kg Body Mass Index (BMI) 64.1 Intake and Output for Last 24 Hours 07/15/18 07/16/18 07/17/18 23:59 23:59 23:59 Intake Total 3473.6 / 3473.6 1772 / 1772 450 / 450 Output Total 1200 / 1200 1250 / 1250 1650 / 1650 Balance 2273.6 / 2273.6 522 / 522 -1200 / -1200 Microbiology Past 72 Hours 07/15/18 04:10 Urine Culture - Final Urine, Catheterized Klebsiella pneumoniae sp pneum 07/15/18 02:20 Blood Culture - Preliminary Blood Culture (Wb) - Anticubital Right Gram Positive Cocci 07/15/18 02:10 Bacteria Detection (PCR) - Final Blood Culture (Wb) - Left Forearm Streptococcus pyogenes Blood Culture - Preliminary Streptococcus group A 07/15/18 08:20 Respiratory Panel (PCR) - Final Mucosa - Nasopharyngeal 07/15/18 04:10 Streptococcus pneumoniae Antigen (M - Final Urine, Clean Catch 07/15/18 04:10 Legionella Antigen - Final Urine, Clean Catch 07/15/18 00:30 Influenza Types A,B Direct FA (JENNIFER) - Final Mucosa - Nose POC Glucose 07/17/18 07/17/18 07/16/18 11:53 06:48 21:02 POC Glucose 114 H 85 85 07/16/18 07/16/18 17:00 16:35 POC Glucose 71 67 L Medical Necessity - Tobacco Use Smoking Status: Former smoker Route of nutrition/ use of supplements: [] Nutritional Intake: [] IV Site: [] Kent Catheter: [] - Assessment/Plan Antibiotics: [] Assessment/Plan: [] Active and Suspected Problems Sepsis (Acute) HCAP (healthcare-associated pneumonia) (Acute) UTI (urinary tract infection) (Acute) Severe sepsis (fever, leukocytosis, CLEO, elevated lactate) due to GAS bacteremia from unclear source. CXR with bibasilar infiltrates, but no new respiratory symptoms. UA with pyuria, and some dysuria; ucx with only small growth of klebsiella. R knee pain, redness; ortho following. Continue ceftriaxone. Has longstanding murmur, will check TTE. Will follow, d/w primary team.
[2018-07-17 16:37] LABS: Bedside Glucose 106 mg/dL (70-110)
--- NOTE | 2018-07-17 16:53 | NURSING ---
Called report to MS3 at this time
[2018-07-17] MEDS: Gabapentin 300 MG Capsule PO (22:36)
[2018-07-17] MEDS: Zolpidem Tartrate 5 MG Tablet PO (22:40)
[2018-07-17 23:07] LABS: Bedside Glucose 92 mg/dL (70-110)
[2018-07-18] VITALS (7 sets, daily range): BP systolic 120–138; BP diastolic 61–75; PULSE 68–79; RESP 15–18; TEMP 36.3–36.9; O2SAT 94–100
[2018-07-18] MEDS: Menthol/Lanolin/Calamine/Znox 113 GM Tube 1 APPLIC TOPICAL ×3 (06:42→20:23)
[2018-07-18] MEDS: Heparin Injection (Vial) 5,000 UNIT/ML VIAL 5000 UNIT SC ×3 (06:43→22:08)
[2018-07-18] MEDS: Nystatin Powder 15gm Bottle 1 APPLIC TOPICAL ×2 (06:43→22:09)
[2018-07-18] MEDS: Multivitamins,Therapeutic Tablet 1 TABLET PO (08:43)
[2018-07-18] MEDS: Glimepiride 2 MG Tablet PO (08:44)
[2018-07-18] MEDS: AcetaZOLAMIDE 250 MG Tablet 125 MG PO ×3 (08:44→16:56)
[2018-07-18] MEDS: Iron Polysaccharide Complex 150 MG CAPSULE PO (08:45)
[2018-07-18] MEDS: Pantoprazole Sodium 40 MG Tablet PO (08:45)
[2018-07-18] MEDS: Metoprolol(XL)Succ 25 MG Tablet PO (08:45)
[2018-07-18] MEDS: dilTIAZem CD 120 MG Capsule PO ×2 (08:46→22:09)
[2018-07-18] MEDS: guaiFENesin 1,200 MG Tablet 1200 MG PO ×2 (08:46→22:07)
[2018-07-18 11:37] LABS: Bedside Glucose 102 mg/dL (70-110)
--- NOTE | 2018-07-18 15:59 | PCM.PN.HOSP ---
Patient Problems: Active and Suspected Problems Sepsis (Acute) HCAP (healthcare-associated pneumonia) (Acute) UTI (urinary tract infection) (Acute) Bacteremia due to Streptococcus (Acute) Subjective: Patient was seen and examined. No new complaints. Still has pain in the right knee and leg. No erythema. Vital signs are stable. Vitals/I&O's: Vital Signs Temp Pulse Resp BP Pulse Ox 98.3 F 74 16 130/64 H 94 07/18/18 14:30 07/18/18 14:30 07/18/18 14:30 07/18/18 14:30 07/18/18 14:30 Oxygen Flow Rate (L/min) 2 Oxygen Delivery Method Nasal Cannula Weight: 149 kg Body Mass Index (BMI) 64.1 Intake and Output for Last 24 Hours 07/16/18 07/17/18 07/18/18 23:59 23:59 23:59 Intake Total 1772 / 1772 950 / 950 1150 / 1150 Output Total 1250 / 1250 2350 / 2350 400 / 400 Balance 522 / 522 -1400 / -1400 750 / 750 General: Alert, Oriented x3, Cooperative, No apparent distress, - - Super morbidly obese HEENT: Atraumatic, PERRLA, EOMI, Normocephalic Oral: Moist Mucosa Neck: Supple, No JVD, Negative Carotid Bruits Lungs: Clear to auscultation, Normal air movement Cardiovascular: Regular rate, Regular Rhythm, Normal S1, Normal S2, No murmurs Abdomen: Bowel Sounds Present, Soft, Non Tender, Non-Distended, No Hepato-splenomegaly Extremities: Edema - Bilateral +1 pedal edema, tenderness over the right knee and right lower leg Skin: No rashes, No breakdown Musculoskeletal: No Tenderness to Palpation of Joints or Extremities Neurological: Cranial nerves II-XII grossly intact, Neuro grossly intact Psych/Mental Status: Normal Affect, Appropriate Microbiology Past 72 Hours 07/15/18 15:55 Blood Culture (Wb) - Right Wrist Blood Culture - Preliminary No growth in 48 hours. 07/15/18 15:45 Blood Culture (Wb) - Right Forearm Blood Culture - Preliminary No growth in 48 hours. 07/15/18 02:20 Blood Culture (Wb) - Anticubital Right Blood Culture - Preliminary Streptococcus pyogenes 07/15/18 02:10 Blood Culture (Wb) - Left Forearm Bacteria Detection (PCR) - Final Streptococcus pyogenes 07/15/18 02:10 Blood Culture (Wb) - Left Forearm Blood Culture - Final Streptococcus pyogenes 07/15/18 04:10 Urine, Catheterized Urine Culture - Final Klebsiella pneumoniae sp pneum 07/15/18 08:20 Mucosa - Nasopharyngeal Respiratory Panel (PCR) - Final Laboratory Results 07/17/18 16:27: POC Glucose 106 07/17/18 22:42: POC Glucose 92 07/18/18 11:21: POC Glucose 102 Current Medications Acetaminophen (Tylenol) 1,000 mg PO Q8H PRN PRN PRN Reason: PAIN Last Admin: 07/16/18 15:41 Dose: 1,000 mg Acetazolamide (Diamox) 125 mg PO TIDCM [facility] Last Admin: 07/18/18 12:31 Dose: 125 mg Albuterol Sulfate (Ventolin Aerosols) 2.5 mg INHALATION Q2H PRN PRN PRN Reason: SHORTNESS OF BREATH Albuterol/Ipratropium (Duoneb) 3 ml INHALATION Q6H.RT [facility] Last Admin: 07/18/18 13:20 Dose: Not Given Benzonatate (Tessalon Perle) 100 mg PO TID PRN PRN PRN Reason: COUGH Calamine/Phenol (Calmoseptine Ointment) 1 applic TOPICAL TID [facility]; Protocol Last Admin: 07/18/18 14:36 Dose: 1 applicatio Cyclobenzaprine HCl (Flexeril) 10 mg PO TID PRN PRN PRN Reason: muscle spasms Last Admin: 07/18/18 11:02 Dose: 10 mg Dicyclomine HCl (Bentyl) 20 mg PO Q6H PRN PRN PRN Reason: abd pain Diltiazem HCl (Cardizem Cd) 120 mg PO BID [facility] Last Admin: 07/18/18 08:46 Dose: 120 mg Gabapentin (Neurontin) 300 mg PO HS [facility] Last Admin: 07/17/18 22:36 Dose: 300 mg Glimepiride (Amaryl) 2 mg PO DAILYCM [facility] Last Admin: 07/18/18 08:44 Dose: 2 mg Guaifenesin (Mucinex) 1,200 mg PO BID [facility] Last Admin: 07/18/18 08:46 Dose: 1,200 mg Heparin Sodium (Porcine) (Heparin Na) 5,000 unit SC Q8 [facility] Last Admin: 07/18/18 14:35 Dose: 5,000 unit Ceftriaxone Sodium 2 gm/ (Sodium Chloride) 50 mls @ 100 mls/hr IV Q24 [facility] Last Admin: 07/18/18 11:19 Dose: 100 mls/hr Insulin Human Lispro (Humalog Kwikpen (Bkc)) 0 unit SC ACHS [facility]; Protocol Last Admin: 07/18/18 11:22 Dose: Not Given Magnesium Hydroxide (Milk Of Magnesia) 30 ml PO DAILY PRN PRN Reason: Constipation Metoprolol Succinate (Toprol Xl (Beta Vikki)) 25 mg PO DAILY [facility] Last Admin: 07/18/18 08:45 Dose: 25 mg Multivitamins (Multivitamin) 1 tablet PO DAILY@0800 [facility] Last Admin: 07/18/18 08:43 Dose: 1 tablet Nutritional Formula (Lactose Free) (Glucerna Shake) 120 ml PO 4X/DAY [facility] Last Admin: 07/18/18 14:36 Dose: Not Given Nystatin (Mycostatin Powder) 1 applic TOPICAL 0600,2200 [facility]; Protocol Last Admin: 07/18/18 06:43 Dose: 1 applicatio Ondansetron HCl (Zofran) 4 mg IV Q8H PRN PRN PRN Reason: NAUSEA Pantoprazole Sodium (Protonix) 40 mg PO DAILY [facility] Last Admin: 07/18/18 08:45 Dose: 40 mg Polysaccharide Iron Complex (Ferrex 150) 150 mg PO DAILYCM [facility] Last Admin: 07/18/18 08:45 Dose: 150 mg Zolpidem Tartrate (Ambien (Generic)) 5 mg PO QHS PRN PRN PRN Reason: INSOMNIA Last Admin: 07/17/18 22:40 Dose: 5 mg Medical Necessity - Tobacco Use Smoking Status: Former smoker Assessment/Plan All Active Problems Sepsis (Acute) HCAP (healthcare-associated pneumonia) (Acute) UTI (urinary tract infection) (Acute) Bacteremia due to Streptococcus (Acute) History of necrotizing fasciitis (Acute) CAP (community acquired pneumonia) (Acute) Lower GI bleed (Resolved) Acute on chronic diastolic heart failure (Acute) Acute bronchitis with asthma with acute exacerbation (Acute) Shortness of breath (Acute) Acute bronchitis (Acute) Atrial fibrillation with RVR (Acute) Otitis externa (Acute) Metabolic alkalosis (Acute) Blood in stool (Acute) Anemia (Acute) Abdominal pain (Resolved) 1. Severe sepsis secondary to UTI cellulitis/bacteremia, resolved, ceftriaxone, will transition to p.o. Keflex 2. Streptococcus pyogenic bacteremia, on IV ceftriaxone, repeat blood cultures have been negative 3. Klebsiella UTI, on IV ceftriaxone, transitioned to Keflex 4. Right lower extremity cellulitis, resolved 5. Right knee pain, chronic, related to arthritis 6. Debility, patient refuses to work with therapy, refuses home health. I feel her discharge will not be a safe one because patient refuses home health, refuses to work with therapy, therefore refused by SNF. Patient lives with her who works. When I asked her who will take care of her, she says herself. 7. DVT PPx- Heparin SC Code Visit Inpatient E&M: 61031 Subs Hosp L2
--- NOTE | 2018-07-18 16:08 | PN_ITS ---
Patient Problems: Active and Suspected Problems Sepsis (Acute) HCAP (healthcare-associated pneumonia) (Acute) UTI (urinary tract infection) (Acute) Bacteremia due to Streptococcus (Acute) Subjective: Patient was seen and examined. No new complaints. Still has pain in the right knee and leg. No erythema. Vital signs are stable. Vitals/I&O's: Vital Signs Temp Pulse Resp BP Pulse Ox 98.3 F 74 16 130/64 H 94 07/18/18 14:30 07/18/18 14:30 07/18/18 14:30 07/18/18 14:30 07/18/18 14:30 Oxygen Flow Rate (L/min) 2 Oxygen Delivery Method Nasal Cannula Weight: 149 kg Body Mass Index (BMI) 64.1 Intake and Output for Last 24 Hours 07/16/18 07/17/18 07/18/18 23:59 23:59 23:59 Intake Total 1772 / 1772 950 / 950 1150 / 1150 Output Total 1250 / 1250 2350 / 2350 400 / 400 Balance 522 / 522 -1400 / -1400 750 / 750 General: Alert, Oriented x3, Cooperative, No apparent distress, - - Super morbidly obese HEENT: Atraumatic, PERRLA, EOMI, Normocephalic Oral: Moist Mucosa Neck: Supple, No JVD, Negative Carotid Bruits Lungs: Clear to auscultation, Normal air movement Cardiovascular: Regular rate, Regular Rhythm, Normal S1, Normal S2, No murmurs Abdomen: Bowel Sounds Present, Soft, Non Tender, Non-Distended, No Hepato- splenomegaly Extremities: Edema - Bilateral +1 pedal edema, tenderness over the right knee and right lower leg Skin: No rashes, No breakdown Musculoskeletal: No Tenderness to Palpation of Joints or Extremities Neurological: Cranial nerves II-XII grossly intact, Neuro grossly intact Psych/Mental Status: Normal Affect, Appropriate Microbiology Past 72 Hours 07/15/18 15:55 Blood Culture (Wb) - Right Wrist Blood Culture - Preliminary No growth in 48 hours. 07/15/18 15:45 Blood Culture (Wb) - Right Forearm Blood Culture - Preliminary No growth in 48 hours. 07/15/18 02:20 Blood Culture (Wb) - Anticubital Right Blood Culture - Preliminary Streptococcus pyogenes 07/15/18 02:10 Blood Culture (Wb) - Left Forearm Bacteria Detection (PCR) - Final Streptococcus pyogenes 07/15/18 02:10 Blood Culture (Wb) - Left Forearm Blood Culture - Final Streptococcus pyogenes 07/15/18 04:10 Urine, Catheterized Urine Culture - Final Klebsiella pneumoniae sp pneum 07/15/18 08:20 Mucosa - Nasopharyngeal Respiratory Panel (PCR) - Final Laboratory Results 07/17/18 16:27: POC Glucose 106 07/17/18 22:42: POC Glucose 92 07/18/18 11:21: POC Glucose 102 Current Medications Acetaminophen (Tylenol) 1,000 mg PO Q8H PRN PRN PRN Reason: PAIN Last Admin: 07/16/18 15:41 Dose: 1,000 mg Acetazolamide (Diamox) 125 mg PO TIDCM [facility] Last Admin: 07/18/18 12:31 Dose: 125 mg Albuterol Sulfate (Ventolin Aerosols) 2.5 mg INHALATION Q2H PRN PRN PRN Reason: SHORTNESS OF BREATH Albuterol/Ipratropium (Duoneb) 3 ml INHALATION Q6H.RT [facility] Last Admin: 07/18/18 13:20 Dose: Not Given Benzonatate (Tessalon Perle) 100 mg PO TID PRN PRN PRN Reason: COUGH Calamine/Phenol (Calmoseptine Ointment) 1 applic TOPICAL TID [facility]; Protocol Last Admin: 07/18/18 14:36 Dose: 1 applicatio Cyclobenzaprine HCl (Flexeril) 10 mg PO TID PRN PRN PRN Reason: muscle spasms Last Admin: 07/18/18 11:02 Dose: 10 mg Dicyclomine HCl (Bentyl) 20 mg PO Q6H PRN PRN PRN Reason: abd pain Diltiazem HCl (Cardizem Cd) 120 mg PO BID [facility] Last Admin: 07/18/18 08:46 Dose: 120 mg Gabapentin (Neurontin) 300 mg PO HS [facility] Last Admin: 07/17/18 22:36 Dose: 300 mg Glimepiride (Amaryl) 2 mg PO DAILYCM [facility] Last Admin: 07/18/18 08:44 Dose: 2 mg Guaifenesin (Mucinex) 1,200 mg PO BID [facility] Last Admin: 07/18/18 08:46 Dose: 1,200 mg Heparin Sodium (Porcine) (Heparin Na) 5,000 unit SC Q8 [facility] Last Admin: 07/18/18 14:35 Dose: 5,000 unit Ceftriaxone Sodium 2 gm/ (Sodium Chloride) 50 mls @ 100 mls/hr IV Q24 [facility] Last Admin: 07/18/18 11:19 Dose: 100 mls/hr Insulin Human Lispro (Humalog Kwikpen (Bkc)) 0 unit SC ACHS [facility]; Protocol Last Admin: 07/18/18 11:22 Dose: Not Given Magnesium Hydroxide (Milk Of Magnesia) 30 ml PO DAILY PRN PRN Reason: Constipation Metoprolol Succinate (Toprol Xl (Beta Vikki)) 25 mg PO DAILY [facility] Last Admin: 07/18/18 08:45 Dose: 25 mg Multivitamins (Multivitamin) 1 tablet PO DAILY@0800 [facility] Last Admin: 07/18/18 08:43 Dose: 1 tablet Nutritional Formula (Lactose Free) (Glucerna Shake) 120 ml PO 4X/DAY [facility] Last Admin: 07/18/18 14:36 Dose: Not Given Nystatin (Mycostatin Powder) 1 applic TOPICAL 0600,2200 [facility]; Protocol Last Admin: 07/18/18 06:43 Dose: 1 applicatio Ondansetron HCl (Zofran) 4 mg IV Q8H PRN PRN PRN Reason: NAUSEA Pantoprazole Sodium (Protonix) 40 mg PO DAILY [facility] Last Admin: 07/18/18 08:45 Dose: 40 mg Polysaccharide Iron Complex (Ferrex 150) 150 mg PO DAILYCM [facility] Last Admin: 07/18/18 08:45 Dose: 150 mg Zolpidem Tartrate (Ambien (Generic)) 5 mg PO QHS PRN PRN PRN Reason: INSOMNIA Last Admin: 07/17/18 22:40 Dose: 5 mg Medical Necessity - Tobacco Use Smoking Status: Former smoker Assessment/Plan All Active Problems Sepsis (Acute) HCAP (healthcare-associated pneumonia) (Acute) UTI (urinary tract infection) (Acute) Bacteremia due to Streptococcus (Acute) History of necrotizing fasciitis (Acute) CAP (community acquired pneumonia) (Acute) Lower GI bleed (Resolved) Acute on chronic diastolic heart failure (Acute) Acute bronchitis with asthma with acute exacerbation (Acute) Shortness of breath (Acute) Acute bronchitis (Acute) Atrial fibrillation with RVR (Acute) Otitis externa (Acute) Metabolic alkalosis (Acute) Blood in stool (Acute) Anemia (Acute) Abdominal pain (Resolved) 1. Severe sepsis secondary to UTI cellulitis/bacteremia, resolved, ceftriaxone, will transition to p.o. Keflex 2. Streptococcus pyogenic bacteremia, on IV ceftriaxone, repeat blood cultures have been negative 3. Klebsiella UTI, on IV ceftriaxone, transitioned to Keflex 4. Right lower extremity cellulitis, resolved 5. Right knee pain, chronic, related to arthritis 6. Debility, patient refuses to work with therapy, refuses home health. I feel her discharge will not be a safe one because patient refuses home health, refuses to work with therapy, therefore refused by SNF. Patient lives with her who works. When I asked her who will take care of her, she says herself. 7. DVT PPx- Heparin SC Code Visit Inpatient E&M: 08542 Subs Hosp L2
[2018-07-18] MEDS: Cephalexin 500 MG Capsule PO ×2 (16:57→23:30)
[2018-07-18 17:02] LABS: Bedside Glucose 96 mg/dL (70-110)
--- NOTE | 2018-07-18 17:04 | NURSING ---
BILATERAL BUTTOCKS AND COCCYX PURPLE. TOLD PATIENT THE NEED FOR TURNING AND CHANGING PRESSURE AREAS, BUT PATIENT REFUSED
[2018-07-18] MEDS: Ipratropium/Albuterol Sulfate 3 ML AMPUL.NEB INHALATION (19:42)
[2018-07-18] MEDS: Acetaminophen 500 MG Tablet 1000 MG PO (20:22)
[2018-07-18 21:52] LABS: Bedside Glucose 103 mg/dL (70-110)
[2018-07-18] MEDS: Gabapentin 300 MG Capsule PO (22:07)
[2018-07-18 22:17] LABS: Bedside Glucose 149 mg/dL (70-110)
[2018-07-19 02:25] VITALS: BP 135/73; PULSE 74; RESP 18; TEMP 36.9; O2SAT 96
[2018-07-19] MEDS: Heparin Injection (Vial) 5,000 UNIT/ML VIAL 5000 UNIT SC (05:57)
[2018-07-19] MEDS: Cephalexin 500 MG Capsule PO ×2 (05:57→11:12)
[2018-07-19 06:43] LABS: Bedside Glucose 109 mg/dL (70-110)
[2018-07-19 07:03] VITALS: O2SAT 92
--- NOTE | 2018-07-19 07:55 | DCINST_ITS ---
- Discharge Diagnoses Current Active Problems: Current Active and Chronic Problems Sepsis (Acute) HCAP (healthcare-associated pneumonia) (Acute) UTI (urinary tract infection) (Acute) Bacteremia due to Streptococcus (Acute) Reason(s) for Visit for Discharge Instructions: Sepsis You will use the following diet at home:: Calorie/Carbohydrate Controlled (specify 1200, 1400, etc), Cardiac Your food should be the consistency of: Regular Your liquids should be the consistency of: Regular/Thin Discharge Activity: Return to Normal Activity Call your doctor if your incision/area has: Increased Redness Call your doctor if you observe: Fever of 101 or Higher, Numbness or Tingling Additional Instructions: Complete your antibiotics as prescribed. You are encouraged to remain active. Follow-up with your primary care doctors within 1- 2 weeks Allergies/Adverse Reactions: Allergies latex Allergy (Verified 06/24/18 05:09) Rash levofloxacin [From Levaquin] Adverse Reaction (Verified 06/24/18 05:09) SPEEDS UP MY HEART AND SHUTS DOWN MY KIDNEYS mushrooms Allergy (Uncoded 08/05/17 21:19) Anaphylaxis Medications to take at Discharge Albuterol Sulfate [Ventolin Hfa] 2 puff INHALATION Q4H PRN PRN 01/08/17 Pantoprazole Sodium [Protonix] 40 mg PO DAILY 02/13/17 Dicyclomine HCl [Bentyl] 20 mg PO Q6H PRN PRN 03/10/17 Multivitamin [Daily Multiple Vitamin] 1 each PO DAILY 08/05/17 Menthol/Lanolin/Calamine/Znox [Calmoseptine Ointment] 1 applic TOPICAL TID tube 10/21/17 Nystatin Powder [Mycostatin Powder] 1 applic TOPICAL 0600,2200 #1 bottle 10/21/17 AcetaAZOLAMIDE [Diamox] 125 mg PO TID tablet 01/12/18 Acetaminophen [Tylenol] 1,000 mg PO Q8H PRN tablet 01/12/18 Cyclobenzaprine [Flexeril] 10 mg PO TID PRN PRN #90 tab 01/12/18 Diltiazem CD [Cardizem CD] 120 mg PO BID capsule 01/12/18 Gabapentin [Neurontin] 300 mg PO HS #30 cap 01/12/18 Metoprolol(XL)Succ [Toprol Xl (Beta Vikki)] 25 mg PO DAILY tablet 01/12/18 Nutritional Supplement [Saul - ORANGE FLAVOR] 1 packet PO BIDCM packet 01/12/18 Glimepiride [Amaryl] 2 mg PO DAILY 06/24/18 Iron Poly/Vit C [Niferex-150] 150 mg PO DAILYCM #30 capsule 06/26/18 Guaifenesin [Robitussin] 10 ml PO Q4H PRN PRN 07/15/18 Iron Poly/Vit C [Niferex-150] 150 mg PO DAILYCM 07/15/18 Magnesium Hydroxide [Milk Of Magnesia] 30 ml PO DAILY PRN PRN 07/15/18 Cephalexin [Keflex] 500 mg PO Q6 #36 capsule 07/19/18 The following prescriptions were given: Cephalexin [Keflex] 500 mg PO Q6 #36 capsule Primary Care Physician: Merrick Mace MD [Primary Care Provider] - Please follow up with your Primary Care Physician in: within 1-2 weeks Test Results: Test results from this visit will be discussed in further detail at your follow- up appointment, if applicable. Proposed Discharge Date: 07/19/18
--- NOTE | 2018-07-19 07:55 | PCM.DC.SUM ---
Discharge Date and Diagnosis - Problem List Patient Problems: Active and Suspected Problems Sepsis (Acute) HCAP (healthcare-associated pneumonia) (Acute) UTI (urinary tract infection) (Acute) Bacteremia due to Streptococcus (Acute) Date of Admission: 07/15/18 Date of Discharge: 07/19/18 - Primary Discharge Diagnosis Active and Suspected Problems Severe sepsis Klebsiella UTI Streptococcus pyogenes bacteremia Cellulitis, right lower extremity Debility Right knee pain - Secondary Discharge Diagnosis Chronic Problems Ulcer of left thigh (Chronic) Yeast dermatitis (Chronic) PAF (paroxysmal atrial fibrillation) (Chronic) acute on chronic blood loss anemia (Chronic) Acute and chronic respiratory failure with hypoxia (Chronic) Acute on chronic diastolic heart failure (Chronic) Morbid obesity (Chronic) GERD (gastroesophageal reflux disease) (Chronic) Irritable bowel syndrome (Chronic) Overactive bladder (Chronic) Wide-complex tachycardia (Chronic) Chronic diastolic CHF (congestive heart failure) (Chronic) Type 2 diabetes mellitus (Chronic) HgbA1c 06/2016 6.5%. 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 Electronically Signed: Hari Ruth MD at 0:56 EST Tel , Service support , Knee X-Ray 07/15/18 15:25 IMPRESSION: Degenerative arthrosis. Electronically Signed: Zina Perez MD at 16:03 EST Tel , Service support , Infectious disease Operations: None Procedures: 2-D Echocardiogram Summary of Care Provided: The patient is a 53 year old F past medical history of CAD status post NC, CHF, paroxysmal atrial fibrillation, type II DM, hyperlipidemia, super morbid obesity, intermediate resident who presented with fever, cough, myalgia and rhinorrhea. Patient was reported to have fever of 102F. She was tachypneic. Her white cell count was 19.4, lactic acid was 2.2. Influenza screen was negative. Blood cultures from the ED grew Streptococcus pyogenes x2. She had history of arthritis, worse in the right than the left. She has some right lower extremity redness. She was started on IV vancomycin and Zosyn. Later in the admission, she was found to have developed right lower extremity cellulitis. ID was consulted, patient was switched to IV ceftriaxone. She was finally discharged on p.o. Keflex for 10 more days. 2D echo did not show any valvular abnormalities. Patient remained afebrile and improved. Patient totally refused to work with PT and OT. She could not be skilled for go to any prison facility. She also refused home health offered by the nurses. She lives at home with her who also works. She insists on being discharged home. I discussed with her and questioned how she was going to manage at home, she says she was going to manage somehow. Throughout her hospital stay, patient never got out of bed. I strongly feel that this patient is going to fail at home because she needs round the clock care. I will not be surprised if she comes back to the hospital in a couple of days. I have escribed nystatin powder for her skin folds. Patient Problems: Active and Suspected Problems Sepsis (Acute) HCAP (healthcare-associated pneumonia) (Acute) UTI (urinary tract infection) (Acute) Bacteremia due to Streptococcus (Acute) Subjective: Patient was seen and examined the day of discharge. She denied any fever or chills or nausea vomiting or diarrhea. Other acute events overnight. Question patient further about being discharged home. She absolutely refuses to have home health come over. She says her is working and will get off of 2 PM. Objective: Physical exam: General: Alert, Oriented x3, Cooperative, No apparent distress, - - Super morbidly obese HEENT: Atraumatic, PERRLA, EOMI, Normocephalic Oral: Moist Mucosa Neck: Supple, No JVD, Negative Carotid Bruits Lungs: Clear to auscultation, Normal air movement Cardiovascular: Regular rate, Regular Rhythm, Normal S1, Normal S2, No murmurs Abdomen: Bowel Sounds Present, Soft, Non Tender, Non-Distended, No Hepato-splenomegaly Extremities: Edema - Bilateral +1 pedal edema, tenderness over the right knee and right lower leg Skin: No rashes, No breakdown, no erythema of right lower legs Musculoskeletal: No Tenderness to Palpation of Joints or Extremities Neurological: Cranial nerves II-XII grossly intact, Neuro grossly intact Psych/Mental Status: Normal Affect, Appropriate - Physical Exam Vital Signs Temp Pulse Resp BP Pulse Ox 98.4 F 74 18 135/73 H 92 07/19/18 02:25 07/19/18 02:25 07/19/18 02:25 07/19/18 02:25 07/19/18 07:03 Oxygen Flow Rate (L/min) 2 Oxygen Delivery Method Nasal Cannula Weight: 149 kg Body Mass Index (BMI) 64.1 Intake and Output for Last 24 Hours 07/17/18 07/18/18 07/19/18 23:59 23:59 23:59 Intake Total 950 / 950 1350 / 1350 900 / 900 Output Total 2350 / 2350 400 / 400 Balance -1400 / -1400 950 / 950 900 / 900 Microbiology Past 72 Hours 07/15/18 15:55 Blood Culture - Preliminary Blood Culture (Wb) - Right Wrist No growth in 48 hours. 07/15/18 15:45 Blood Culture - Preliminary Blood Culture (Wb) - Right Forearm No growth in 48 hours. 07/15/18 02:20 Blood Culture - Preliminary Blood Culture (Wb) - Anticubital Right Streptococcus pyogenes 07/15/18 02:10 Bacteria Detection (PCR) - Final Blood Culture (Wb) - Left Forearm Streptococcus pyogenes Blood Culture - Final Streptococcus pyogenes 07/15/18 04:10 Urine Culture - Final Urine, Catheterized Klebsiella pneumoniae sp pneum POC Glucose 07/19/18 07/18/18 07/18/18 06:25 22:03 16:53 POC Glucose 109 149 H 96 07/18/18 07/18/18 11:21 06:47 POC Glucose 102 103 Discharge Diet: Low fat/ Low Cholesterol, 2000 mg Sodium Diet, Carb Control Diet Discharge Activity: Return to Normal Activity Call your doctor if your incision/area has: Increased Redness Call your doctor if you observe: Fever of 101 or Higher, Numbness or Tingling Home Medications: Medications to take at Discharge Albuterol Sulfate [Ventolin Hfa] 2 puff INHALATION Q4H PRN PRN 01/08/17 Pantoprazole Sodium [Protonix] 40 mg PO DAILY 02/13/17 Dicyclomine HCl [Bentyl] 20 mg PO Q6H PRN PRN 03/10/17 Multivitamin [Daily Multiple Vitamin] 1 each PO DAILY 08/05/17 Menthol/Lanolin/Calamine/Znox [Calmoseptine Ointment] 1 applic TOPICAL TID tube 10/21/17 Nystatin Powder [Mycostatin Powder] 1 applic TOPICAL 0600,2200 #1 bottle 10/21/17 AcetaAZOLAMIDE [Diamox] 125 mg PO TID tablet 01/12/18 Acetaminophen [Tylenol] 1,000 mg PO Q8H PRN tablet 01/12/18 Cyclobenzaprine [Flexeril] 10 mg PO TID PRN PRN #90 tab 01/12/18 Diltiazem CD [Cardizem CD] 120 mg PO BID capsule 01/12/18 Gabapentin [Neurontin] 300 mg PO HS #30 cap 01/12/18 Metoprolol(XL)Succ [Toprol Xl (Beta Vikki)] 25 mg PO DAILY tablet 01/12/18 Nutritional Supplement [Saul - ORANGE FLAVOR] 1 packet PO BIDCM packet 01/12/18 Glimepiride [Amaryl] 2 mg PO DAILY 06/24/18 Iron Poly/Vit C [Niferex-150] 150 mg PO DAILYCM #30 capsule 06/26/18 Guaifenesin [Robitussin] 10 ml PO Q4H PRN PRN 07/15/18 Iron Poly/Vit C [Niferex-150] 150 mg PO DAILYCM 07/15/18 Magnesium Hydroxide [Milk Of Magnesia] 30 ml PO DAILY PRN PRN 07/15/18 Cephalexin [Keflex] 500 mg PO Q6 #36 capsule 07/19/18 Following Prescrptions Were Given to Patient: Cephalexin [Keflex] 500 mg PO Q6 #36 capsule Primary Care Physician: Merrick Mace MD [Primary Care Provider] - Please follow up with your Primary Care Physician in: within 1-2 weeks Disposition: Home Minutes spent on discharge:: 40 Patient Condition:: Stable Medical Necessity - Tobacco Use Smoking Status: Former smoker Tobacco Use: Non-smoker Meaningful Use Info Meaningful Use Diagnoses (Choose all that apply): None applicable Code Visit Inpatient E&M: 15904 Disch Hosp
[2018-07-19 08:08] VITALS: PULSE 78
[2018-07-19] MEDS: Multivitamins,Therapeutic Tablet 1 TABLET PO (08:08)
[2018-07-19] MEDS: AcetaZOLAMIDE 250 MG Tablet 125 MG PO ×2 (08:08→11:12)
[2018-07-19] MEDS: dilTIAZem CD 120 MG Capsule PO (08:08)
[2018-07-19] MEDS: guaiFENesin 1,200 MG Tablet 1200 MG PO (08:08)
[2018-07-19] MEDS: Pantoprazole Sodium 40 MG Tablet PO (08:08)
[2018-07-19] MEDS: Iron Polysaccharide Complex 150 MG CAPSULE PO (08:08)
[2018-07-19] MEDS: Glimepiride 2 MG Tablet PO (08:08)
[2018-07-19] MEDS: Metoprolol(XL)Succ 25 MG Tablet PO (08:08)
[2018-07-19 08:11] VITALS: BP 144/79; PULSE 78; RESP 18; TEMP 36.6; O2SAT 98
[2018-07-19] MEDS: Insulin Lispro 100 UNIT/ML INSULN.PEN SC (11:11)
[2018-07-19 11:18] LABS: Bedside Glucose 153 mg/dL (70-110)
--- NOTE | 2018-07-20 15:19 | CASEMGMT ---
RN CM Discharge Follow-up Phone Call: JORGE: 13 Strata: 4 Call Date: 07/20/18 Discharge Date: 07/19/18 Time of Call: 1515 Duration: 1 min Admitting Diagnosis: UTI, HCAP, Severe Sepsis RN CM attempted to complete follow-up phone call after recent hospitalization. No answer, voice message left with return contact information.
== END 2018-07-19 13:55 | disposition home or self-care (01) | DRG 871 ==
LOC: ED 07-15 00:22 → PCU 07-15 02:23 → MS3 07-17 18:46
PROVIDERS: Nurse Practitioner Family; Admitting Provider Hospitalist; Emergency Provider Emergency Medicine; Family Provider Family Medicine; PCP Family Medicine; Visit Provider Internal Medicine
DX: A40.0 Sepsis due to streptococcus, group A (principal); J18.9 Pneumonia, unspecified organism; N17.9 Acute kidney failure, unspecified; Z68.44 Body mass index [BMI] 60.0-69.9, adult; E66.2 Morbid (severe) obesity with alveolar hypoventilation; J96.11 Chronic respiratory failure with hypoxia; L03.115 Cellulitis of right lower limb; N39.0 Urinary tract infection, site not specified; I50.32 Chronic diastolic (congestive) heart failure; R65.20 Severe sepsis without septic shock; Z66 Do not resuscitate; E78.5 Hyperlipidemia, unspecified; I48.0 Paroxysmal atrial fibrillation; G47.33 Obstructive sleep apnea (adult) (pediatric); M17.11 Unilateral primary osteoarthritis, right knee; Y95 Nosocomial condition; Z99.81 Dependence on supplemental oxygen; D64.9 Anemia, unspecified; I27.20 Pulmonary hypertension, unspecified; K76.0 Fatty (change of) liver, not elsewhere classified; I87.2 Venous insufficiency (chronic) (peripheral); B96.1 Klebsiella pneumoniae [K. pneumoniae] as the cause of diseases classified elsewhere; R53.81 Other malaise; Z79.899 Other long term (current) drug therapy; E11.42 Type 2 diabetes mellitus with diabetic polyneuropathy; K21.9 Gastro-esophageal reflux disease without esophagitis; Z87.891 Personal history of nicotine dependence; Z79.84 Long term (current) use of oral hypoglycemic drugs; I25.2 Old myocardial infarction; I11.0 Hypertensive heart disease with heart failure; J45.909 Unspecified asthma, uncomplicated; N32.81 Overactive bladder
CPT/HCPCS: 36415; 71045; 73560; 80048; 80076; 81001; 82962; 83605; 85025; 85027; 85610; 87040; 87077; 87086; 87088; 87149; 87186; 87449; 87633; 87804; 93306; 93970; 94640; 94667; 94668; 94762; 97110; 97162; 97165; 97530; 97535; 97802; 99285; J7030; J7040; P9612; Q9957; A4216; J0696

== ENCOUNTER 2018-07-21 14:31 | Inpatient (IN) | payer MEDICARE, SELFPAY ==
[2018-07-15 03:00] VITALS: BMI 64.1
[2018-07-21] VITALS (31 sets, daily range): BP systolic 105–157; BP diastolic 54–86; PULSE 62–103; RESP 14–23; TEMP 36.9–37.2; O2SAT 77–100; BMI 66.2; BMI 64.6
--- NOTE | 2018-07-21 14:51 | RAD_ITS ---
STUDY: X-RAY CHEST REASON FOR EXAM: Female, 53 years old. Shortness of breath. TECHNIQUE: Single AP portable view of the chest. COMPARISON: Comparison is made with prior study dated July 15, 2018. FINDINGS: EKG electrodes are seen. Vascular congestion and mild CHF. There is no demonstrated pleural abnormality. There is moderate cardiac enlargement. Normal mediastinum and negra. Normal visualized pulmonary arteries. Normal visualized aortic arch and descending thoracic aorta. Normal visualized thoracic spine. Normal visualized ribs, clavicles, and shoulders. There is no demonstrated abnormality of the visualized soft tissue structures of the upper abdomen. RAD/Chest 1 View (Portable) IMPRESSION: CHF. Cardiomegaly. Electronically Signed: Nj Markham MD at 15:25 EST , Service support ,
[2018-07-21 15:01] LABS: Absolute Lymphocyte Count 1.14 X10^3/ul (0.83-4.51); Absolute Neutrophil Count 7.5 X10^3/uL (2.0-7.7); Basophil# 0.03 X10^3/uL; Basophil% 0.3 % (0-1); Eosinophil# 0.35 X10^3/uL; Eosinophils% 3.6 % (0-5); Hematocrit 33.2 % (37-47); Hemoglobin 9.2 g/dl (12.0-15.0); Lymphocyte # 1.14 X10^3/ul (4.0); Lymphocyte % 11.7 % (19-41); Mean Corp Hgb Conc 27.7 g/gl (32-36); Mean Corpuscular Hgb 25.8 pg (27.0-32.0); Mean Platelet Vol. 9.1 fl (6.2-12.0); Monocyte# 0.58 X10^3/uL; Monocyte% 5.9 % (0-10); Neutrophil # 7.45 X10^3/uL (2.7-7.7); Neutrophil % 76.2 % (47-70); POSITIVE COUNT YES; POSITIVE DIFFERENTIAL NO; POSITIVE MORPHOLOGY YES; Platelet Count 308 K/mm3 (150-450); RBC Distribution Width CV 18.4 % (11.6-14.6); RBC Distribution Width SD 58.7 fl (35.1-43.9); Red Blood Count 3.57 M/mm3 (4.2-5.4); White Blood Count 9.8 K/mm3 (4.4-11.0)
[2018-07-21 15:20] LABS: ALB/GLOB Ratio 0.4 RATIO (0.9-2.4); AST(SGOT) 11 U/L (15-37); Alanine Aminotransfer ALT/SGPT 14 U/L (13-56); Albumin, Serum 2.8 g/dL (3.2-5.0); Alkaline Phosphatase 96 U/L (45-117); Anion Gap 7 (5-15); BUN 23 mg/dL (7-18); Calcium,Total 8.5 mg/dL (8.5-10.1); Chloride 103 mmol/L (98-107); EST Glomerular Filtration Rate 62 mL/min (>60); Est Glom Filt Rate - Afr Amer 75 mL/min (>60); Estimated Creatinine Clearance 46.73 ml/min; Globulin 7.3 g/dL (2.2-4.2); Glucose 105 mg/dL (74-106); Potassium 4.2 mmol/L (3.5-5.1); Protein, Total 10.1 g/dL (6.4-8.2); Sodium Level 137 mmol/L (136-145)
[2018-07-21 15:31] LABS: Allen Test POS; Base Excess 0 mmol/L (-2 to +2); Bicarbonate 28.3 mmol/L (22-26); Blood Gas Specimen Type ART; FI02 50; PO2 103 mmHG (75-100); SITE R Radial; SO2 96 % (95-99); Time Given 1500; Total Carbon Dioxide 31 mmol/L; pCO2 73.9 mmHg (35-45); pH 7.19 (7.35-7.45)
[2018-07-21 15:32] LABS: Bacteria 0 SEEN /hpf (None Seen)
[2018-07-21 15:57] LABS: Color, Urine Yellow (Yellow); Glucose, Dipstick Normal (Normal); Ketone-Dipstick 5 mg/dl (Negative); Leukocyte Esterase-Dipstick Negative /ul (Negative); Nitrite-Dipstick Negative (Negative); Occult Blood-Urine Negative /ul (Negative); Protein-Dipstick 15 mg/dl (Negative); Urine Bilirubin Dipstick Negative (Negative); Urine Clarity Sl. Cloudy (Clear); Urine Urobilinogen Normal (Normal)
--- NOTE | 2018-07-21 15:57 | ED.RN ---
PT MEDICATED WITH 20 MG OF ETOMIDATE AT 1547 AND THEN 150MG OF ROCURONIUM AT 1549 PRE-INTUBATION
[2018-07-21] MEDS: Etomidate 20 MG/10 ML Vial IV (16:05)
[2018-07-21] MEDS: Rocuronium Bromide 50 MG/5 ML Vial 150 MG IV (16:05)
--- NOTE | 2018-07-21 16:10 | RAD_ITS ---
STUDY: X-RAY CHEST REASON FOR EXAM: Female, 53 years old. Tube placement. TECHNIQUE: Single AP portable view of the chest. COMPARISON: Earlier the same day. FINDINGS: Endotracheal tube extends to the right main bronchus. The dens to the stomach in the left upper quadrant. Patchy bilateral perihilar and lower lung opacities. There is no demonstrated pleural abnormality. There is mild cardiac enlargement. Normal mediastinum and negra. Central vascular prominence. Normal visualized aortic arch and descending thoracic aorta. Normal visualized thoracic spine. Normal visualized ribs, clavicles, and shoulders. There is no demonstrated abnormality of the visualized soft tissue structures of the upper abdomen. RAD/Chest 1 View IMPRESSION: Endotracheal tube at the right main bronchus. Feeding tube extends to the stomach. A subsequent image demonstrates the feeding tube having been pulled back. Stable CHF with edema and cardiac enlargement. Electronically Signed: Guy Reynolds MD at 17:24 EST , Service support ,
[2018-07-21 16:12] LABS: Red Blood Cells-Urine 0-5 SEEN /hpf (0-5); White Blood Cells 0-5 SEEN /hpf (0-5)
[2018-07-21 16:13] LABS: Hyaline Cast 0-5 SEEN /lpf (0-5); Mucous, Urine RARE /hpf (<or=2+); Squamous Epithelial Cells - UA 0-5 SEEN /hpf (5-10)
--- NOTE | 2018-07-21 16:16 | ED.RN ---
PT IS INTUBATED WITH INTUBATION SETTINGS OF AC 14, 450. PEEP OF 5 @ 100%
--- NOTE | 2018-07-21 16:17 | ED.DCSUM_ITS ---
- ER Visit Summary Date of Service: 07/21/18 Chief Complaint: Overdose History of Present Illness: The patient is a 53 F patient apparently took 30 tramadol's and 29 Flexeril's. Apparently she was sick of living. She was found by her who called paramedics. She has an extensive medical history with diabetes hypertension CHF asthma COPD she was recently admitted and demanded to go home. Physical Examination: Initially patient is quite somnolent but arousable she is on a nonrebreather and protecting her airway. Her lungs are coarse and distant bilaterally abdomen is soft no significant tenderness her GCS is 14 with no focal deficit See template for details Emergency Department Course and Treatment: Patient is acidotic and hypercarbic, I do not believe she has the mental status to tolerate her BiPAP, I am reluctant to give her Narcan for the fear of possible seizure. I will observe her on a ventilator. I gave her 20 mg of etomidate, 150 mg of rocuronium, a 7.5 ET tube was passed through the cords. Subsequent x-ray shows position at the uriel therefore I adjusted the tube. We will repeat an ABG for correct minute I talked to ICU physician and hospitalist for admission to the intensive care unit. Disposition: Admit in critical condition Impression: Overdose on opiates Hypercarbia Endotracheal intubation Critical care time 35 minutes. This does not include any procedures. This note was generated with [employer] dictation software. It may contain incorrect words, spelling, and punctuation that were not noted in review of the chart prior to signing ED Disposition - Plan for ED Patient: Referrals: Merrick Mace MD [Primary Care Provider] -
--- NOTE | 2018-07-21 16:17 | RAD_ITS ---
STUDY: X-RAY CHEST REASON FOR EXAM: Female, 53 years old. Tube placement TECHNIQUE: Single AP portable view of the chest. COMPARISON: Earlier the same day FINDINGS: The endotracheal tube has been pulled back and is now seen at the uriel. Feeding tube extends to the stomach in the left upper quadrant. Stable perihilar and lower lung groundglass and airspace opacities. There is no demonstrated pleural abnormality. There is mild cardiac enlargement. Normal mediastinum and nerga. Stable vascular prominence. Normal visualized aortic arch and descending thoracic aorta. Normal visualized thoracic spine. There is degenerative osteoarthritis of the bilateral shoulders. There is no demonstrated abnormality of the visualized soft tissue structures of the upper abdomen. RAD/Chest 1 View IMPRESSION: Endotracheal tube has been pulled back and is now seen at the uriel. Feeding tube extends to the stomach. Stable CHF with edema. Electronically Signed: Guy Reynolds MD at 17:25 EST , Service support ,
[2018-07-21 16:22] LABS: Lactic Acid 0.6 mmol/L (0.4-2.0)
--- NOTE | 2018-07-21 16:29 | NURSING ---
ICU OD RACHEL
[2018-07-21 16:41] LABS: Base Excess -1 mmol/L (-2 to +2); Blood Gas Specimen Type ART; FI02 100; Mode A-C; O2 Delivery Device Vent; PEEP 5; PO2 109 mmHG (75-100); RR 14; SITE R Radial; SO2 97 % (95-99); Time Given 1630; Total Carbon Dioxide 29 mmol/L; Vt 450; pCO2 66.2 mmHg (35-45); pH 7.22 (7.35-7.45)
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
--- NOTE | 2018-07-21 16:42 | NURSING ---
ICU 1
[2018-07-21 16:45] LABS: Amphetamine Urine VISTA NEGATIVE (<1000 ng/mL); Barbiturate Urine VISTA NEGATIVE (< 200 ng/mL); Benzodiazepine Urine VISTA NEGATIVE (< 200 ng/mL); Cocaine Urine VISTA NEGATIVE (< 300 ng/mL); Ecstacy Urine VISTA NEGATIVE (< 500 ng/mL); Methadone Urine VISTA NEGATIVE (< 300 ng/mL); PCP Urine VISTA NEGATIVE (< 25 ng/mL); THC Urine VISTA NEGATIVE (< 50 ng/mL); Vista UDS pH Range 5
--- NOTE | 2018-07-21 16:58 | CPS ---
CRITICAL RESULTS ON ABG GIVEN TO DR. GARRIDO 07-21-18 AT [id number]
--- NOTE | 2018-07-21 17:03 | CHAPLAIN ---
Type of Pastoral Visit ___ Initial Visit ___ Follow-up Visit ___ On-call Visit ___ General Patient Visit ___ Spiritual Assessment ___ Family Conference ___ Bereavement ___ Rapid Response ___ Code Blue _x__ Other (describe below) Pastoral Care Referral From ___ Patient ___ Family ___ Nurse ___ Physician ___ Personal Investment Adviser ___ Filler Sifter Helper _x__ Other (describe below) Sacrament/Intervention _x__ Active listening ___ Anointing ___ Jew ___ Bereavement ___ Communion ___ Shiela exploration ___ ___ Life review _x__ Prayer ___ Reconciliation ___ Sacrament of Sick _x__ Supportive presence ___ Wedding ___ Other (describe below) Pastoral Comments patient is said to have admitted to attempted suicide by swallowing multiple pills; pt has been seen before by this glass cleaner on previous hospital admissions; have met spouse before; spouse remembers glass cleaner and talks about what happened and the difficulty that he feels in caring for pt; went with spouse into room of pt after procedures done; offered prayer; offered further support as desired and follow up to pt
--- NOTE | 2018-07-21 17:30 | NURSING ---
Pt to ICU bed 1 from ED.
[2018-07-21] MEDS: Enoxaparin 40 MG/0.4 ML Syringe SC (18:23)
[2018-07-21] MEDS: 0.9% Normal Saline 1,000 ML 75 ML IV (18:23)
[2018-07-21 18:26] LABS: Bedside Glucose 103 mg/dL (70-110)
[2018-07-21 18:46] LABS: Partial Thromboplast Time 37.2 Seconds (24.1-36.2)
[2018-07-21] MEDS: Propofol 10MG/Ml 1,000 MG/100 ML Bottle 9.006 MG CONT INF (19:52)
[2018-07-21 20:57] LABS: Acetaminophen (Tylenol) Level < 2.0 ug/mL (10.0-30.0); Salicylate < 1.7 mg/dL (2.8-20.0)
[2018-07-21] MEDS: Chlorhexidine 15 ML PO (21:07)
[2018-07-21 23:16] LABS: Bedside Glucose 94 mg/dL (70-110)
[2018-07-21] MEDS: 0.9% NaCl Peripheral Flush Adult/Peds IV (23:31)
[2018-07-22] VITALS (37 sets, daily range): BP systolic 99–147; BP diastolic 50–84; PULSE 61–103; RESP 15–21; TEMP 37–38; O2SAT 91–100
[2018-07-22 04:09] LABS: Absolute Neutrophil Count 4.9 X10^3/uL (2.0-7.7); Basophil# 0.03 X10^3/uL; Basophil% 0.4 % (0-1); Eosinophil# 0.29 X10^3/uL; Eosinophils% 4.2 % (0-5); Hematocrit 28.9 % (37-47); Lymphocyte % 16.1 % (19-41); Mean Corp Hgb Conc 27.7 g/gl (32-36); Mean Corpuscular Hgb 25.7 pg (27.0-32.0); Mean Corpuscular Volume 92.9 fL (81-99); Mean Platelet Vol. 9.1 fl (6.2-12.0); Monocyte# 0.37 X10^3/uL; Monocyte% 5.4 % (0-10); Neutrophil # 4.88 X10^3/uL (2.7-7.7); Neutrophil % 71.3 % (47-70); Platelet Count 220 K/mm3 (150-450); RBC Distribution Width CV 17.8 % (11.6-14.6); Red Blood Count 3.11 M/mm3 (4.2-5.4); White Blood Count 6.9 K/mm3 (4.4-11.0)
[2018-07-22 04:10] LABS: POSITIVE COUNT YES; POSITIVE DIFFERENTIAL NO; POSITIVE MORPHOLOGY YES
[2018-07-22 04:12] LABS: International Normalized Ratio 1.1; Prothrombin Time (Protime)PT. 14.1 SECONDS (11.7-14.9)
[2018-07-22 04:20] LABS: AST(SGOT) 9 U/L (15-37); Alanine Aminotransfer ALT/SGPT 12 U/L (13-56); Albumin, Serum 2.4 g/dL (3.2-5.0); Alkaline Phosphatase 84 U/L (45-117); Anion Gap 8 (5-15); BUN 21 mg/dL (7-18); BUN/Creat Ratio 22.2 RATIO (10-20); Bilirubin, Direct 0.14 mg/dL (0.00-0.30); Calcium,Total 8.3 mg/dL (8.5-10.1); Chloride 105 mmol/L (98-107); Creatinine, Serum 0.95 mg/dL (0.55-1.02); EST Glomerular Filtration Rate 66 mL/min (>60); Est Glom Filt Rate - Afr Amer 79 mL/min (>60); Estimated Creatinine Clearance 49.19 ml/min; Glucose 92 mg/dL (74-106); Phosphorus 2.9 mg/dL (2.5-4.9); Potassium 3.7 mmol/L (3.5-5.1); Protein, Total 8.4 g/dL (6.4-8.2); Sodium Level 141 mmol/L (136-145)
--- NOTE | 2018-07-22 05:22 | CPS ---
Pt. went on CPAP trial with PS of 5. Pt. falling asleep and had periods of apnea and desaturation.
[2018-07-22] MEDS: Propofol 10MG/Ml 1,000 MG/100 ML Bottle 9.006 MG CONT INF (05:54)
[2018-07-22] MEDS: CHLORHEXIDINE GLUC 2% CLOTH 1 EACH TOWELETTE TOPICAL (05:54)
[2018-07-22] MEDS: 0.9% NaCl Peripheral Flush Adult/Peds IV (05:55)
--- NOTE | 2018-07-22 05:55 | EKG12_ITS ---
Test Reason : AM EKG Blood Pressure : / mmHG Vent. Rate : 084 BPM Atrial Rate : 084 BPM P-R Int : 160 ms QRS Dur : 108 ms QT Int : 428 ms P-R-T Axes : 061 083 053 degrees QTc Int : 505 ms Normal sinus rhythm Prolonged QT Abnormal ECG When compared with ECG of 21-JUL-2018 16:28, MANUAL COMPARISON REQUIRED, DATA IS UNCONFIRMED Confirmed by SARAI RUBI, GRACE ([id number]), associate editor VICK BAH ([id number]) on 07/24/2018 9:31:35 AM Referred By: Keshawn Oakes Confirmed By:GRACE MOON MD
[2018-07-22 06:00] LABS: Bedside Glucose 98 mg/dL (70-110)
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
[2018-07-22] MEDS: Vital AF 1.2 Cal Liquid 1,000 ML 60 ML GT (10:13)
[2018-07-22] MEDS: Enoxaparin 40 MG/0.4 ML Syringe SC (10:13)
[2018-07-22] MEDS: Famotidine 20 MG Tablet GT ×2 (10:13→22:34)
[2018-07-22] MEDS: Chlorhexidine 15 ML PO ×2 (10:13→22:34)
--- NOTE | 2018-07-22 11:12 | PCM.PN.HOSP ---
Patient Problems: Active and Suspected Problems Drug overdose (Acute) Suicide attempt (Acute) Subjective: Patient is a 53-year-old lady morbidly obese with BMI of 65 admitted following an attempted suicide attempt with tramadol and Flexeril with 30 and 29 pills respectively. Patient was apparently intubated in the ED as a result of worsening respiratory status. Subsequently admitted to the intensive care unit. Objective: GENERAL: Sedated on the vent HEENT: Atraumatic; ET-tube in place EYES; Anicteric, Normal Conjunctiva NECK; supple, normal thyroid, RESPIRATORY: Diminished to auscultation bilaterally, CARDIOVASCULAR: Regular S1 S2, GI: soft, non-tender, normoactive bowel sounds, : No Renal angle tenderness; EXTREMITIES: Lateral stasis dermatitis MUSCULOSKELETAL: No Joint swelling NEURO: Unable to assess SKIN: No Rash PSYCH; Unable to assess Vitals/I&O's: Vital Signs Temp Pulse Resp BP Pulse Ox 99.2 F H 88 16 113/52 L 93 07/22/18 08:00 07/22/18 10:30 07/22/18 10:30 07/22/18 10:00 07/22/18 10:30 Oxygen Flow Rate (L/min) 15 Oxygen Delivery Method Mechanical Ventilator Weight: 150.8 kg Body Mass Index (BMI) 64.6 Intake and Output for Last 24 Hours 07/20/18 07/21/18 07/22/18 23:59 23:59 23:59 Intake Total 427 / 427 355 / 355 Output Total 600 / 600 250 / 250 Balance -173 / -173 105 / 105 Laboratory Results 07/21/18 14:30: Ethyl Alcohol 7.0 07/21/18 14:50: WBC 9.8, RBC 3.57 L, Hgb 9.2 L, Hct 33.2 L, MCV 93.0, MCH 25.8 L, MCHC 27.7 L, RDW 18.4 H, RDW Differential 58.7 H, Plt Count 308, MPV 9.1, Immature Gran % (Auto) 2.300 H, Neut % (Auto) 76.2 H, Lymph % (Auto) 11.7 L, [place] % (Auto) 5.9, Eos % (Auto) 3.6, Baso % (Auto) 0.3, Absolute Neuts (auto) 7.5, Absolute Lymphs (auto) 1.14, Total Counted Not Reportable, Diff Path Review October07/21/18 14:50: Sodium 137, Potassium 4.2, Chloride 103, Carbon Dioxide 27.0, Anion Gap 7, BUN 23 H, Creatinine 1.00, Estim Creat Clear Calc 46.73, Est GFR (MDRD) Af Amer 75, Est GFR (MDRD) Non-Af 62, BUN/Creatinine Ratio 23.0 H, Glucose 105, Calcium 8.5, Total Bilirubin 0.30, AST 11 L, ALT 14, Alkaline Phosphatase 96, Troponin I < 0.015, Total Protein 10.1 H, Albumin 2.8 L, Globulin 7.3 H, Albumin/Globulin Ratio 0.4 L 07/21/18 14:50: Salicylates < 1.7 L, Acetaminophen < 2.0 L 07/21/18 14:50: APTT 37.2 H 07/21/18 15:00: Lactic Acid 0.6 07/21/18 15:20: Specimen Type ART, Sample Site R Radial, pH 7.19 L*, Bicarbonate Actual 28.3 H, POC Total CO2 31, Base Excess 0, O2 Saturation 96, O2 % 50, ABG pCO2 73.9 H*, ABG pO2 103 H, José Antonio Test POS, O2 Delivery Device Vent Mask, Blood Gas Notified Whom ED MD, Blood Gas Notified Time 1500 07/21/18 15:25: Urine Opiates Screen NEGATIVE, Urine Methadone Screen NEGATIVE, Ur Barbiturates Screen NEGATIVE, Ur Phencyclidine Scrn NEGATIVE, Ur Amphetamines Screen NEGATIVE, U Methamphetamin-MDMA NEGATIVE, U Benzodiazepines Scrn NEGATIVE, Urine Cocaine Screen NEGATIVE, U Cannabinoids Screen NEGATIVE, Ur Drug Screen Comment 07/21/18 15:25: Urine Color Yellow, Urine Clarity Sl. Cloudy, Urine pH 5.0, Ur Specific Dorsey 1.020, Urine Protein 15 H, Urine Glucose (UA) Normal, Urine Ketones 5 H, Urine Occult Blood Negative, Urine Nitrite Negative, Urine Bilirubin Negative, Urine Urobilinogen Normal, Ur Leukocyte Esterase Negative, Urine RBC 0-5 SEEN, Urine WBC 0-5 SEEN, Ur Squamous Epith Cells 0-5 SEEN, Urine Bacteria 0 SEEN, Hyaline Casts 0-5 SEEN, Urine Mucus RARE 07/21/18 16:36: Specimen Type ART, Sample Site R Radial, pH 7.22 L, Bicarbonate Actual 27.0 H, POC Total CO2 29, Base Excess -1, O2 Saturation 97, O2 % 100, ABG pCO2 66.2 H, ABG pO2 109 H, José Antonio Test NA, Respiration Rate 14, O2 Delivery Device Vent, Vent Mode A-C, Tidal Volume 450, POC PEEP 5, Blood Gas Notified Whom ED , Blood Gas Notified Time 1630 07/21/18 18:18: POC Glucose 103 07/21/18 23:07: POC Glucose 94 07/22/18 03:50: WBC 6.9, RBC 3.11 L, Hgb 8.0 L, Hct 28.9 L, MCV 92.9, MCH 25.7 L, MCHC 27.7 L, RDW 17.8 H, RDW Differential 57.0 H, Plt Count 220, MPV 9.1, Immature Gran % (Auto) 2.600 H, Neut % (Auto) 71.3 H, Lymph % (Auto) 16.1 L, [place] % (Auto) 5.4, Eos % (Auto) 4.2, Baso % (Auto) 0.4, Absolute Neuts (auto) 4.9, Absolute Lymphs (auto) 1.10, Total Counted Not Reportable, Diff Path Review October07/22/18 03:50: PT 14.1, INR 1.1 07/22/18 03:50: Sodium 141, Potassium 3.7, Chloride 105, Carbon Dioxide 28.0, Anion Gap 8, BUN 21 H, Creatinine 0.95, Estim Creat Clear Calc 49.19, Est GFR (MDRD) Af Amer 79, Est GFR (MDRD) Non-Af 66, BUN/Creatinine Ratio 22.2 H, Glucose 92, Calcium 8.3 L, Phosphorus 2.9, Magnesium 2.0, Total Bilirubin 0.40, Direct Bilirubin 0.14, AST 9 L, ALT 12 L, Alkaline Phosphatase 84, Total Protein 8.4 H, Albumin 2.4 L, Globulin 6.0 H 07/22/18 03:50: Phosphorus Cancelled 07/22/18 05:53: POC Glucose 98 Current Medications Chlorhexidine Gluconate () 15 ml PO BID ANIA Last Admin: 07/22/18 10:13 Dose: 15 ml Chlorhexidine Gluconate () 1 each TOPICAL DAILY ANIA Last Admin: 07/22/18 05:54 Dose: 1 each Dextrose (D50w Syringe) 0 gm IV X1 PRN; Protocol PRN Reason: Hypoglycemia Enoxaparin Sodium (Lovenox) 40 mg SC DAILY@1000 [facility] Last Admin: 07/22/18 10:13 Dose: 40 mg Famotidine (Pepcid) 20 mg GT BID [facility] Last Admin: 07/22/18 10:13 Dose: 20 mg Glucagon () 1 mg IM .X1 PRN PRN Reason: Hypoglycemia Sodium Chloride () 250 mls @ 15 mls/hr IV .[id number] PRN PRN Reason: SALINE FLUSH Enteral Nutritional Formula (Vital Af 1.2 [place] Liquid) 1,000 mls @ 60 mls/hr GT .[id number] [facility] Last Admin: 07/22/18 10:13 Dose: 60 mls/hr Insulin Human Lispro (Humalog Kwikpen (Bkc)) 0 unit SQ Q6 [facility]; Protocol Last Admin: 07/22/18 05:54 Dose: Not Given Magnesium Hydroxide (Milk Of Magnesia) 30 ml PO DAILY PRN PRN PRN Reason: Constipation Ondansetron HCl (Zofran) 4 mg IV Q8H PRN PRN PRN Reason: NAUSEA Sodium Chloride () 5 - 15 ml IV UD PRN PRN Reason: SALINE FLUSH Last Admin: 07/22/18 05:55 Dose: 10 ml Medical Necessity - Tobacco Use Smoking Status: Former smoker Assessment/Plan All Active Problems Ulcer of left thigh (Resolved) Sepsis (Acute) HCAP (healthcare-associated pneumonia) (Acute) UTI (urinary tract infection) (Acute) Bacteremia due to Streptococcus (Acute) Drug overdose (Acute) Suicide attempt (Acute) History of necrotizing fasciitis (Acute) CAP (community acquired pneumonia) (Acute) Lower GI bleed (Resolved) Acute on chronic diastolic heart failure (Acute) Acute bronchitis with asthma with acute exacerbation (Resolved) Acute bronchitis (Acute) Atrial fibrillation with RVR (Acute) Otitis externa (Acute) Metabolic alkalosis (Acute) Blood in stool (Acute) Anemia (Acute) Abdominal pain (Resolved) Patient is a 53-year-old lady morbidly obese with BMI of 65 admitted following an attempted suicide attempt with tramadol and Flexeril with 30 and 29 pills respectively. Patient was apparently intubated in the ED as a result of worsening respiratory status. Subsequently admitted to the intensive care unit. 1. Acute hypoxic hypercapnic respiratory failure secondary to intentional drug overdose in an apparent suicidal attempt. Patient was intubated in the emergency department and subsequently admitted to the intensive care unit. Consultation was placed to Dr. Hampton with intensive care ICU management deferred 2. Chronic hypoxic respiratory failure secondary to obesity hypoventilation syndrome patient is on baseline oxygen 4 L at night 3. Severe depression with intentional drug overdose in an apparent suicidal attempt, dull and Flexeril. Patient currently on the vent plan is to consult the crisis team once patient respiratory status stabilizes and she is weaned and extubated on the vent 4. Chronic diastolic congestive heart failure with known EF of 65% 5. Anemia secondary to anemia of chronic disorder: Monitoring H&H with plans to transfuse if hemoglobin falls below 7 or patient becomes symptomatic 6. Diabetes mellitus type 2 continued with home regimen in addition to Accu-Cheks before meals and at bedtime with sliding scale coverage 7. Mild intermittent asthma 8. Obstructive sleep apnea 9. Nonobstructing left renal calculus 10. Degenerative joint disease 11. Fatty liver do suspect nonalcoholic fatty liver disease from patient's morbid obesity as well as diabetes mellitus type 2 12. Chronic bilateral lower extremity lymphedema from venous insufficiency 13. Onychomycosis 14. Morbid obesity with BMI of 76 15. DVT prophylaxis: Lovenox Active Medications Albuterol Sulfate (Ventolin Aerosols) 2.5 mg INHALATION Q2H PRN PRN PRN Reason: SOB &/OR WHEEZING Chlorhexidine Gluconate () 15 ml PO BID [facility] Last Admin: 07/22/18 10:13 Dose: 15 ml Chlorhexidine Gluconate () 1 each TOPICAL DAILY [facility] Last Admin: 07/22/18 05:54 Dose: 1 each Dextrose (D50w Syringe) 0 gm IV X1 PRN; Protocol PRN Reason: Hypoglycemia Enoxaparin Sodium (Lovenox) 40 mg SC DAILY@1000 [facility] Last Admin: 07/22/18 10:13 Dose: 40 mg Famotidine (Pepcid) 20 mg GT BID [facility] Last Admin: 07/22/18 10:13 Dose: 20 mg Glucagon () 1 mg IM .X1 PRN PRN Reason: Hypoglycemia Sodium Chloride () 250 mls @ 15 mls/hr IV .[id number] PRN PRN Reason: SALINE FLUSH Enteral Nutritional Formula (Vital Af 1.2 [place] Liquid) 1,000 mls @ 60 mls/hr GT .[id number] [facility] Last Admin: 07/22/18 10:13 Dose: 60 mls/hr Insulin Human Lispro (Humalog Kwikpen (Bkc)) 0 unit SQ Q6 [facility]; Protocol Last Admin: 07/22/18 11:20 Dose: Not Given Magnesium Hydroxide (Milk Of Magnesia) 30 ml PO DAILY PRN PRN PRN Reason: Constipation Ondansetron HCl (Zofran) 4 mg IV Q8H PRN PRN PRN Reason: NAUSEA Sodium Chloride () 5 - 15 ml IV UD PRN PRN Reason: SALINE FLUSH Last Admin: 07/22/18 05:55 Dose: 10 ml Clinical Impression(s) from Imaging Studies Chest X-Ray 07/21/18 14:51 IMPRESSION: CHF. Cardiomegaly. Electronically Signed: Nj Markham MD at 15:25 EST , Service support , Chest X-Ray 07/21/18 16:10 IMPRESSION: Endotracheal tube at the right main bronchus. Feeding tube extends to the stomach. A subsequent image demonstrates the feeding tube having been pulled back. Stable CHF with edema and cardiac enlargement. Electronically Signed: Guy Reynolds MD at 17:24 EST , Service support , Chest X-Ray 07/21/18 16:17 IMPRESSION: Endotracheal tube has been pulled back and is now seen at the uriel. Feeding tube extends to the stomach. Stable CHF with edema. Electronically Signed: Guy Reynolds MD at 17:25 EST , Service support , Code Visit Inpatient E&M: 34117 Subs Hosp L3
[2018-07-22 11:21] LABS: Bedside Glucose 103 mg/dL (70-110)
--- NOTE | 2018-07-22 12:47 | CASEMGMT ---
Social Work SW met with pt Ricco, daughter Nguyen, two sisters and a sister in law. Ricco states that he returned home from work on Friday and pt asked him to bring her to the ED as pt had taken 90 sleeping pills and thought she would be gone before he got home. Emotional support provided to family and SW encouraged verbalization of feelings regarding situation with pt. Family concerned with advance directives stating that pt has completed a DNR, Living will and HCPOA. Documents are not on medical record and dgt states she will look at home for these documents and bring them in. If dgt cannot find them family thinks they may be on record at [facility]. Dgt made aware that if she cannot find documents release can be signed and faxed to [facility]. DNRCCA signed by pt is on medical record from October 2017 TCU stay. SW printed DNR and gave to LEGAL INVESTIGATOR Grecia. Dgt made aware. Family concerned with pt return home as pt is very depressed and family does not feel she is safe at home. KHUSHBOO explained to family that when pt is medically cleared Crisis will be called and an evaluation for appropriate psychiatric placement will be made. Family is understanding and agreeable to this treatment plan. Family also states pt cannot return home as spouse is unable to care for her as he works interactive multimedia designer and care needs are greater than spouse can provide. KHUSHBOO explained that Pt had applied for Medicaid while in the TCU in December but family states pt is not on Medicaid. KHUSHBOO called Mildred at [facility] and pt was on Waiver in the past but pt was uncooperative and was cut. Application was received in December 2017 but no one followed up to submit needed paperwork. KHUSHBOO informed dgt of this and provided a new application and expressed importance of carrying through with completion of submitting needed paperwork if pt needs fdc placement. SW will continue to follow for support as needed. RADHA Pelayo
[2018-07-22 13:21] LABS: Allen Test POS; Base Excess 1 mmol/L (-2 to +2); Bicarbonate 26.2 mmol/L (22-26); Blood Gas Specimen Type ART; FI02 30; Mode A-C; O2 Delivery Device Vent; PEEP 5; PO2 77 mmHG (75-100); RR 16; SITE R Radial; SO2 95 % (95-99); Time Given 1310; Total Carbon Dioxide 28 mmol/L; Vt 450; pCO2 46.8 mmHg (35-45); pH 7.36 (7.35-7.45)
[2018-07-22 17:21] LABS: Bedside Glucose 104 mg/dL (70-110)
[2018-07-23] VITALS (26 sets, daily range): BP systolic 113–138; BP diastolic 56–106; PULSE 75–104; RESP 15–28; TEMP 35.9–38.3; O2SAT 93–99
[2018-07-23] MEDS: Insulin Lispro 100 UNIT/ML INSULN.PEN SQ ×2 (00:22→05:08)
[2018-07-23 00:30] LABS: Bedside Glucose 163 mg/dL (70-110)
[2018-07-23 05:30] LABS: Bedside Glucose 173 mg/dL (70-110)
--- NOTE | 2018-07-23 05:55 | EKG12_ITS ---
Test Reason : OD Blood Pressure : / mmHG Vent. Rate : 101 BPM Atrial Rate : 101 BPM P-R Int : 156 ms QRS Dur : 114 ms QT Int : 394 ms P-R-T Axes : 053 094 055 degrees QTc Int : 510 ms Sinus tachycardia Rightward axis Incomplete right bundle branch block Borderline ECG Confirmed by SARAI RUBI, GRACE ([id number]), rewrite editor VICK BAH ([id number]) on 07/24/2018 8:22:15 AM Referred By: Keshawn Oakes Confirmed By:GRACE MOON MD
--- NOTE | 2018-07-23 06:59 | PN_ITS ---
Subjective: The patient was seen and examined at the bedside this morning. Events from the last 24 hours have been reviewed. The patient currently has a low-grade fever, without evidence of leukocytosis. She did well this morning on her spontaneous breathing trial. She is alert, cooperative and following commands appropriately. Therefore, the decision was made to proceed with extubation. The patient was subsequently extubated and placed on 2 L/min nasal cannula. Objective: The patient's most recent lab work, culture data and imaging studies have all been personally reviewed. General: - - Remains intubated and mechanically ventilated. Currently tolerating CPAP without issue. HEENT: Atraumatic, PERRLA, Normocephalic Oral: No Gingival or Mucosal Lesions/ Ulcerations, - - Endotracheal and OG tubes remain in place. Neck: Supple, No Nodes, Trachea Midline Lungs: No rhonchi, No wheeze, No rales, Diminished Cardiovascular: Regular rate, Regular Rhythm, Normal S1, Normal S2, No murmurs Abdomen: Bowel Sounds Present, Soft, Non Tender, Obese Extremities: No clubbing, No cyanosis, Edema Skin: - - No significant change from previous Musculoskeletal: No Tenderness to Palpation of Joints or Extremities, No Muscle Wasting Lymphatic: No Cervical, Supraclavicular, or Inguinal Adenopathy Neurological: Neuro grossly intact, - - Alert and following commands appropriately. Vital Signs Temp Pulse Resp BP Pulse Ox 38.3 C H 99 27 H 119/97 H 95 07/23/18 06:00 07/23/18 06:00 07/23/18 06:00 07/23/18 06:00 07/23/18 06:00 Oxygen Flow Rate (L/min) 15 Oxygen Delivery Method Mechanical Ventilator Weight: 331 lb 12.731 oz Body Mass Index (BMI) 64.6 Intake and Output for Last 24 Hours 07/21/18 07/22/18 07/23/18 23:59 23:59 23:59 Intake Total 427 / 427 1104 / 1104 1126 / 1126 Output Total 600 / 600 675 / 675 600 / 600 Balance -173 / -173 429 / 429 526 / 526 Labs (Last 48 Hours) 07/21/18 07/21/18 07/21/18 14:30 14:50 14:50 WBC 9.8 RBC 3.57 L Hgb 9.2 L Hct 33.2 L MCV 93.0 MCH 25.8 L MCHC 27.7 L RDW 18.4 H RDW Differential 58.7 H Plt Count 308 MPV 9.1 Immature Gran % (Auto) 2.300 H Neut % (Auto) 76.2 H Lymph % (Auto) 11.7 L [place] % (Auto) 5.9 Eos % (Auto) 3.6 Baso % (Auto) 0.3 Absolute Neuts (auto) 7.5 Absolute Lymphs (auto) 1.14 Total Counted Not Reportable Diff Path Review May foll PT INR APTT Specimen Type Sample Site pH Bicarbonate Actual POC Total CO2 Base Excess O2 Saturation O2 % ABG pCO2 ABG pO2 José Antonio Test Respiration Rate O2 Delivery Device Vent Mode Tidal Volume POC PEEP Blood Gas Notified Whom Blood Gas Notified Time Sodium 137 Potassium 4.2 Chloride 103 Carbon Dioxide 27.0 Anion Gap 7 BUN 23 H Creatinine 1.00 Estim Creat Clear Calc 46.73 Est GFR (MDRD) Af Amer 75 Est GFR (MDRD) Non-Af 62 BUN/Creatinine Ratio 23.0 H Glucose 105 Lactic Acid Calcium 8.5 Phosphorus Magnesium Total Bilirubin 0.30 Direct Bilirubin AST 11 L ALT 14 Alkaline Phosphatase 96 Troponin I < 0.015 Total Protein 10.1 H Albumin 2.8 L Globulin 7.3 H Albumin/Globulin Ratio 0.4 L Urine Color Urine Clarity Urine pH Ur Specific [place] Urine Protein Urine Glucose (UA) Urine Ketones Urine Occult Blood Urine Nitrite Urine Bilirubin Urine Urobilinogen Ur Leukocyte Esterase Urine RBC Urine WBC Ur Squamous Epith Cells Urine Bacteria Hyaline Casts Urine Mucus Salicylates Urine Opiates Screen Urine Methadone Screen Acetaminophen Ur Barbiturates Screen Ur Phencyclidine Scrn Ur Amphetamines Screen U Methamphetamin-MDMA U Benzodiazepines Scrn Urine Cocaine Screen U Cannabinoids Screen Ur Drug Screen Comment Ethyl Alcohol 7.0 POC Glucose 07/21/18 07/21/18 07/21/18 14:50 14:50 15:00 WBC RBC Hgb Hct MCV MCH MCHC RDW RDW Differential Plt Count MPV Immature Gran % (Auto) Neut % (Auto) Lymph % (Auto) [place] % (Auto) Eos % (Auto) Baso % (Auto) Absolute Neuts (auto) Absolute Lymphs (auto) Total Counted Diff Path Review PT INR APTT 37.2 H Specimen Type Sample Site pH Bicarbonate Actual POC Total CO2 Base Excess O2 Saturation O2 % ABG pCO2 ABG pO2 José Antonio Test Respiration Rate O2 Delivery Device Vent Mode Tidal Volume POC PEEP Blood Gas Notified Whom Blood Gas Notified Time Sodium Potassium Chloride Carbon Dioxide Anion Gap BUN Creatinine Estim Creat Clear Calc Est GFR (MDRD) Af Amer Est GFR (MDRD) Non-Af BUN/Creatinine Ratio Glucose Lactic Acid 0.6 Calcium Phosphorus Magnesium Total Bilirubin Direct Bilirubin AST ALT Alkaline Phosphatase Troponin I Total Protein Albumin Globulin Albumin/Globulin Ratio Urine Color Urine Clarity Urine pH Ur Specific [place] Urine Protein Urine Glucose (UA) Urine Ketones Urine Occult Blood Urine Nitrite Urine Bilirubin Urine Urobilinogen Ur Leukocyte Esterase Urine RBC Urine WBC Ur Squamous Epith Cells Urine Bacteria Hyaline Casts Urine Mucus Salicylates < 1.7 L Urine Opiates Screen Urine Methadone Screen Acetaminophen < 2.0 L Ur Barbiturates Screen Ur Phencyclidine Scrn Ur Amphetamines Screen U Methamphetamin-MDMA U Benzodiazepines Scrn Urine Cocaine Screen U Cannabinoids Screen Ur Drug Screen Comment Ethyl Alcohol POC Glucose 07/21/18 07/21/18 07/21/18 15:20 15:25 15:25 WBC RBC Hgb Hct MCV MCH MCHC RDW RDW Differential Plt Count MPV Immature Gran % (Auto) Neut % (Auto) Lymph % (Auto) [place] % (Auto) Eos % (Auto) Baso % (Auto) Absolute Neuts (auto) Absolute Lymphs (auto) Total Counted Diff Path Review PT INR APTT Specimen Type ART Sample Site R Radial pH 7.19 L* Bicarbonate Actual 28.3 H POC Total CO2 31 Base Excess 0 O2 Saturation 96 O2 % 50 ABG pCO2 73.9 H* ABG pO2 103 H José Antonio Test POS Respiration Rate O2 Delivery Device Vent Mask Vent Mode Tidal Volume POC PEEP Blood Gas Notified Whom ED Blood Gas Notified Time 1500 Sodium Potassium Chloride Carbon Dioxide Anion Gap BUN Creatinine Estim Creat Clear Calc Est GFR (MDRD) Af Amer Est GFR (MDRD) Non-Af BUN/Creatinine Ratio Glucose Lactic Acid Calcium Phosphorus Magnesium Total Bilirubin Direct Bilirubin AST ALT Alkaline Phosphatase Troponin I Total Protein Albumin Globulin Albumin/Globulin Ratio Urine Color Yellow Urine Clarity Sl. Cloudy Urine pH 5.0 Ur Specific [place] 1.020 Urine Protein 15 H Urine Glucose (UA) Normal Urine Ketones 5 H Urine Occult Blood Negative Urine Nitrite Negative Urine Bilirubin Negative Urine Urobilinogen Normal Ur Leukocyte Esterase Negative Urine RBC 0-5 SEEN Urine WBC 0-5 SEEN Ur Squamous Epith Cells 0-5 SEEN Urine Bacteria 0 SEEN Hyaline Casts 0-5 SEEN Urine Mucus RARE Salicylates Urine Opiates Screen NEGATIVE Urine Methadone Screen NEGATIVE Acetaminophen Ur Barbiturates Screen NEGATIVE Ur Phencyclidine Scrn NEGATIVE Ur Amphetamines Screen NEGATIVE U Methamphetamin-MDMA NEGATIVE U Benzodiazepines Scrn NEGATIVE Urine Cocaine Screen NEGATIVE U Cannabinoids Screen NEGATIVE Ur Drug Screen Comment Ethyl Alcohol POC Glucose 07/21/18 07/21/18 07/21/18 16:36 18:18 23:07 WBC RBC Hgb Hct MCV MCH MCHC RDW RDW Differential Plt Count MPV Immature Gran % (Auto) Neut % (Auto) Lymph % (Auto) [place] % (Auto) Eos % (Auto) Baso % (Auto) Absolute Neuts (auto) Absolute Lymphs (auto) Total Counted Diff Path Review PT INR APTT Specimen Type ART Sample Site R Radial pH 7.22 L Bicarbonate Actual 27.0 H POC Total CO2 29 Base Excess -1 O2 Saturation 97 O2 % 100 ABG pCO2 66.2 H ABG pO2 109 H José Antonio Test NA Respiration Rate 14 O2 Delivery Device Vent Vent Mode A-C Tidal Volume 450 POC PEEP 5 Blood Gas Notified Whom ED Blood Gas Notified Time 1630 Sodium Potassium Chloride Carbon Dioxide Anion Gap BUN Creatinine Estim Creat Clear Calc Est GFR (MDRD) Af Amer Est GFR (MDRD) Non-Af BUN/Creatinine Ratio Glucose Lactic Acid Calcium Phosphorus Magnesium Total Bilirubin Direct Bilirubin AST ALT Alkaline Phosphatase Troponin I Total Protein Albumin Globulin Albumin/Globulin Ratio Urine Color Urine Clarity Urine pH Ur Specific [place] Urine Protein Urine Glucose (UA) Urine Ketones Urine Occult Blood Urine Nitrite Urine Bilirubin Urine Urobilinogen Ur Leukocyte Esterase Urine RBC Urine WBC Ur Squamous Epith Cells Urine Bacteria Hyaline Casts Urine Mucus Salicylates Urine Opiates Screen Urine Methadone Screen Acetaminophen Ur Barbiturates Screen Ur Phencyclidine Scrn Ur Amphetamines Screen U Methamphetamin-MDMA U Benzodiazepines Scrn Urine Cocaine Screen U Cannabinoids Screen Ur Drug Screen Comment Ethyl Alcohol POC Glucose 103 94 07/22/18 07/22/18 07/22/18 03:50 03:50 03:50 WBC 6.9 RBC 3.11 L Hgb 8.0 L Hct 28.9 L MCV 92.9 MCH 25.7 L MCHC 27.7 L RDW 17.8 H RDW Differential 57.0 H Plt Count 220 MPV 9.1 Immature Gran % (Auto) 2.600 H Neut % (Auto) 71.3 H Lymph % (Auto) 16.1 L [place] % (Auto) 5.4 Eos % (Auto) 4.2 Baso % (Auto) 0.4 Absolute Neuts (auto) 4.9 Absolute Lymphs (auto) 1.10 Total Counted Not Reportable Diff Path Review May foll PT 14.1 INR 1.1 APTT Specimen Type Sample Site pH Bicarbonate Actual POC Total CO2 Base Excess O2 Saturation O2 % ABG pCO2 ABG pO2 José Antonio Test Respiration Rate O2 Delivery Device Vent Mode Tidal Volume POC PEEP Blood Gas Notified Whom Blood Gas Notified Time Sodium 141 Potassium 3.7 Chloride 105 Carbon Dioxide 28.0 Anion Gap 8 BUN 21 H Creatinine 0.95 Estim Creat Clear Calc 49.19 Est GFR (MDRD) Af Amer 79 Est GFR (MDRD) Non-Af 66 BUN/Creatinine Ratio 22.2 H Glucose 92 Lactic Acid Calcium 8.3 L Phosphorus 2.9 Magnesium 2.0 Total Bilirubin 0.40 Direct Bilirubin 0.14 AST 9 L ALT 12 L Alkaline Phosphatase 84 Troponin I Total Protein 8.4 H Albumin 2.4 L Globulin 6.0 H Albumin/Globulin Ratio Urine Color Urine Clarity Urine pH Ur Specific [place] Urine Protein Urine Glucose (UA) Urine Ketones Urine Occult Blood Urine Nitrite Urine Bilirubin Urine Urobilinogen Ur Leukocyte Esterase Urine RBC Urine WBC Ur Squamous Epith Cells Urine Bacteria Hyaline Casts Urine Mucus Salicylates Urine Opiates Screen Urine Methadone Screen Acetaminophen Ur Barbiturates Screen Ur Phencyclidine Scrn Ur Amphetamines Screen U Methamphetamin-MDMA U Benzodiazepines Scrn Urine Cocaine Screen U Cannabinoids Screen Ur Drug Screen Comment Ethyl Alcohol POC Glucose 07/22/18 07/22/18 07/22/18 03:50 05:53 11:18 WBC RBC Hgb Hct MCV MCH MCHC RDW RDW Differential Plt Count MPV Immature Gran % (Auto) Neut % (Auto) Lymph % (Auto) [place] % (Auto) Eos % (Auto) Baso % (Auto) Absolute Neuts (auto) Absolute Lymphs (auto) Total Counted Diff Path Review PT INR APTT Specimen Type Sample Site pH Bicarbonate Actual POC Total CO2 Base Excess O2 Saturation O2 % ABG pCO2 ABG pO2 José Antonio Test Respiration Rate O2 Delivery Device Vent Mode Tidal Volume POC PEEP Blood Gas Notified Whom Blood Gas Notified Time Sodium Potassium Chloride Carbon Dioxide Anion Gap BUN Creatinine Estim Creat Clear Calc Est GFR (MDRD) Af Amer Est GFR (MDRD) Non-Af BUN/Creatinine Ratio Glucose Lactic Acid Calcium Phosphorus Cancelled Magnesium Total Bilirubin Direct Bilirubin AST ALT Alkaline Phosphatase Troponin I Total Protein Albumin Globulin Albumin/Globulin Ratio Urine Color Urine Clarity Urine pH Ur Specific [place] Urine Protein Urine Glucose (UA) Urine Ketones Urine Occult Blood Urine Nitrite Urine Bilirubin Urine Urobilinogen Ur Leukocyte Esterase Urine RBC Urine WBC Ur Squamous Epith Cells Urine Bacteria Hyaline Casts Urine Mucus Salicylates Urine Opiates Screen Urine Methadone Screen Acetaminophen Ur Barbiturates Screen Ur Phencyclidine Scrn Ur Amphetamines Screen U Methamphetamin-MDMA U Benzodiazepines Scrn Urine Cocaine Screen U Cannabinoids Screen Ur Drug Screen Comment Ethyl Alcohol POC Glucose 98 103 07/22/18 07/22/18 07/23/18 13:15 17:08 00:19 WBC RBC Hgb Hct MCV MCH MCHC RDW RDW Differential Plt Count MPV Immature Gran % (Auto) Neut % (Auto) Lymph % (Auto) [place] % (Auto) Eos % (Auto) Baso % (Auto) Absolute Neuts (auto) Absolute Lymphs (auto) Total Counted Diff Path Review PT INR APTT Specimen Type ART Sample Site R Radial pH 7.36 Bicarbonate Actual 26.2 H POC Total CO2 28 Base Excess 1 O2 Saturation 95 O2 % 30 ABG pCO2 46.8 H ABG pO2 77 José Antonio Test POS Respiration Rate 16 O2 Delivery Device Vent Vent Mode A-C Tidal Volume 450 POC PEEP 5 Blood Gas Notified Whom ICU MD Blood Gas Notified Time 1310 Sodium Potassium Chloride Carbon Dioxide Anion Gap BUN Creatinine Estim Creat Clear Calc Est GFR (MDRD) Af Amer Est GFR (MDRD) Non-Af BUN/Creatinine Ratio Glucose Lactic Acid Calcium Phosphorus Magnesium Total Bilirubin Direct Bilirubin AST ALT Alkaline Phosphatase Troponin I Total Protein Albumin Globulin Albumin/Globulin Ratio Urine Color Urine Clarity Urine pH Ur Specific [place] Urine Protein Urine Glucose (UA) Urine Ketones Urine Occult Blood Urine Nitrite Urine Bilirubin Urine Urobilinogen Ur Leukocyte Esterase Urine RBC Urine WBC Ur Squamous Epith Cells Urine Bacteria Hyaline Casts Urine Mucus Salicylates Urine Opiates Screen Urine Methadone Screen Acetaminophen Ur Barbiturates Screen Ur Phencyclidine Scrn Ur Amphetamines Screen U Methamphetamin-MDMA U Benzodiazepines Scrn Urine Cocaine Screen U Cannabinoids Screen Ur Drug Screen Comment Ethyl Alcohol POC Glucose 104 163 H 07/23/18 05:02 WBC RBC Hgb Hct MCV MCH MCHC RDW RDW Differential Plt Count MPV Immature Gran % (Auto) Neut % (Auto) Lymph % (Auto) [place] % (Auto) Eos % (Auto) Baso % (Auto) Absolute Neuts (auto) Absolute Lymphs (auto) Total Counted Diff Path Review PT INR APTT Specimen Type Sample Site pH Bicarbonate Actual POC Total CO2 Base Excess O2 Saturation O2 % ABG pCO2 ABG pO2 José Antonio Test Respiration Rate O2 Delivery Device Vent Mode Tidal Volume POC PEEP Blood Gas Notified Whom Blood Gas Notified Time Sodium Potassium Chloride Carbon Dioxide Anion Gap BUN Creatinine Estim Creat Clear Calc Est GFR (MDRD) Af Amer Est GFR (MDRD) Non-Af BUN/Creatinine Ratio Glucose Lactic Acid Calcium Phosphorus Magnesium Total Bilirubin Direct Bilirubin AST ALT Alkaline Phosphatase Troponin I Total Protein Albumin Globulin Albumin/Globulin Ratio Urine Color Urine Clarity Urine pH Ur Specific [place] Urine Protein Urine Glucose (UA) Urine Ketones Urine Occult Blood Urine Nitrite Urine Bilirubin Urine Urobilinogen Ur Leukocyte Esterase Urine RBC Urine WBC Ur Squamous Epith Cells Urine Bacteria Hyaline Casts Urine Mucus Salicylates Urine Opiates Screen Urine Methadone Screen Acetaminophen Ur Barbiturates Screen Ur Phencyclidine Scrn Ur Amphetamines Screen U Methamphetamin-MDMA U Benzodiazepines Scrn Urine Cocaine Screen U Cannabinoids Screen Ur Drug Screen Comment Ethyl Alcohol POC Glucose 173 H Clinical Impression(s) from Imaging Studies Chest X-Ray 07/21/18 14:51 IMPRESSION: CHF. Cardiomegaly. Electronically Signed: Nj Markham MD at 15:25 EST , Service support , Chest X-Ray 07/21/18 16:10 IMPRESSION: Endotracheal tube at the right main bronchus. Feeding tube extends to the stomach. A subsequent image demonstrates the feeding tube having been pulled back. Stable CHF with edema and cardiac enlargement. Electronically Signed: Guy Reynolds MD at 17:24 EST , Service support , Chest X-Ray 07/21/18 16:17 IMPRESSION: Endotracheal tube has been pulled back and is now seen at the uriel. Feeding tube extends to the stomach. Stable CHF with edema. Electronically Signed: Guy Reynolds MD at 17:25 EST , Service support , Medical Necessity - Tobacco Use Smoking Status: Former smoker Assessment/Plan All Active Problems Ulcer of left thigh (Resolved) Sepsis (Acute) HCAP (healthcare-associated pneumonia) (Acute) UTI (urinary tract infection) (Acute) Bacteremia due to Streptococcus (Acute) Drug overdose (Acute) Suicide attempt (Acute) History of necrotizing fasciitis (Acute) CAP (community acquired pneumonia) (Acute) Lower GI bleed (Resolved) Acute on chronic diastolic heart failure (Acute) Acute bronchitis with asthma with acute exacerbation (Resolved) Acute bronchitis (Acute) Atrial fibrillation with RVR (Acute) Otitis externa (Acute) Metabolic alkalosis (Acute) Blood in stool (Acute) Anemia (Acute) Abdominal pain (Resolved) RECOMMENDATIONS: 1. Proceed with a trial of extubation. Place patient on supplemental oxygen to maintain of 90% or greater. 2. Recommend empiric utilization of BiPAP nightly, given history of obstructive sleep apnea. 3. Perform bedside swallow evaluation and advance diet accordingly. 4. Continue as needed aerosol treatments. 5. Restart home blood pressure medication regimen. 6. Encourage incentive spirometer use and mobilize patient as tolerated. Physical therapy to evaluate patient. 7. Consultation placed to crisis for evaluation. IMPRESSIONS: 1. Acute hypoxemic and hypercarbic respiratory failure The patient was intubated in the emergency department for airway protection after she presented in an encephalopathic state, likely secondary to her intentional overdose and hypercarbia secondary to alveolar hypoventilation. With time, the patient's mentation improved. She passed her spontaneous breathing trial this morning and was subsequently extubated to nasal cannula. 2. Metabolic encephalopathy Resolved. Likely secondary to hypercarbia noted on presentation in conjunction with polypharmacy from the patient's intentional overdose. Poison control was contacted and made aware. No additional intervention is indicated at this time, other than to continue the current supportive measures. 3. Intentional overdose/suicide attempt Recommend crisis evaluation. 4. Super morbid obesity/obstructive sleep apnea, noncompliant with nocturnal PAP therapy The patient has a known history of noncompliance with use of nocturnal Pap therapy. It has been recommended in the past that she follow-up in the pulmonary medicine clinic so that treatment can be reestablished. However, the patient to date has failed to do so. 5. Possible obstructive lung disease/diabetes/hypertension/hyperlipidemia/depression/nonalcoholic fatty liver disease/pulmonary hypertension Complicates care, management, recovery and prognosis. We will continue as needed aerosol treatments. TIME: 38 minutes of critical care time, independent of procedures, was spent addressing the patient's acute hypoxemic and hypercarbic respiratory failure, metabolic encephalopathy, intentional overdose/suicide attempt, super morbid obesity, obstructive sleep apnea, review of all data and collaboration with the care team. ([id number]) Code Visit [id number]: [id number] Critical care first hour
--- NOTE | 2018-07-23 07:12 | PN_ITS ---
Patient Problems: Active and Suspected Problems Drug overdose (Acute) Suicide attempt (Acute) Subjective: Since seen weaned off the vent this a.m. She apparently threatened to leave AGAINST MEDICAL ADVICE. Patient was therefore pink slipped. Patient has low- grade fever and infectious etiology is currently being pursued with a checks x- ray as well as acute respiratory viral panel. Objective: GENERAL: Awake. HEENT: Atraumatic; EYES; Anicteric, Normal Conjunctiva NECK; supple, normal thyroid, RESPIRATORY: Diminished to auscultation bilaterally, CARDIOVASCULAR: Regular S1 S2, GI: soft, non-tender, normoactive bowel sounds, : No Renal angle tenderness; EXTREMITIES: Lateral stasis dermatitis MUSCULOSKELETAL: No Joint swelling NEURO: Unable to assess SKIN: No Rash PSYCH; flat affect Vitals/I&O's: Vital Signs Temp Pulse Resp BP Pulse Ox 100.9 F H 99 27 H 119/97 H 95 07/23/18 06:00 07/23/18 06:00 07/23/18 06:00 07/23/18 06:00 07/23/18 06:00 Oxygen Flow Rate (L/min) 15 Oxygen Delivery Method Mechanical Ventilator Weight: 150.5 kg Body Mass Index (BMI) 64.6 Intake and Output for Last 24 Hours 07/21/18 07/22/18 07/23/18 23:59 23:59 23:59 Intake Total 427 / 427 1104 / 1104 1126 / 1126 Output Total 600 / 600 675 / 675 600 / 600 Balance -173 / -173 429 / 429 526 / 526 Laboratory Results 07/22/18 11:18: POC Glucose 103 07/22/18 13:15: Specimen Type ART, Sample Site R Radial, pH 7.36, Bicarbonate Actual 26.2 H, POC Total CO2 28, Base Excess 1, O2 Saturation 95, O2 % 30, ABG pCO2 46.8 H, ABG pO2 77, José Antonio Test POS, Respiration Rate 16, O2 Delivery Device Vent, Vent Mode A-C, Tidal Volume 450, POC PEEP 5, Blood Gas Notified Whom ICU , Blood Gas Notified Time 1310 07/22/18 17:08: POC Glucose 104 07/23/18 00:19: POC Glucose 163 H 07/23/18 05:02: POC Glucose 173 H Current Medications Albuterol Sulfate (Ventolin Aerosols) 2.5 mg INHALATION Q2H PRN PRN PRN Reason: SOB &/OR WHEEZING Chlorhexidine Gluconate () 15 ml PO BID [facility] Last Admin: 07/22/18 22:34 Dose: 15 ml Chlorhexidine Gluconate () 1 each TOPICAL DAILY [facility] Last Admin: 07/22/18 05:54 Dose: 1 each Dextrose (D50w Syringe) 0 gm IV X1 PRN; Protocol PRN Reason: Hypoglycemia Enoxaparin Sodium (Lovenox) 40 mg SC DAILY@1000 ANIA Last Admin: 07/22/18 10:13 Dose: 40 mg Famotidine (Pepcid) 20 mg GT BID [facility] Last Admin: 07/22/18 22:34 Dose: 20 mg Glucagon () 1 mg IM .X1 PRN PRN Reason: Hypoglycemia Sodium Chloride () 250 mls @ 15 mls/hr IV .[id number] PRN PRN Reason: SALINE FLUSH Enteral Nutritional Formula (Vital Af 1.2 [place] Liquid) 1,000 mls @ 60 mls/hr GT .[id number] [facility] Last Admin: 07/23/18 04:09 Dose: Not Given Insulin Human Lispro (Humalog Kwikpen (Bkc)) 0 unit SQ Q6 [facility]; Protocol Last Admin: 07/23/18 05:08 Dose: 1 u Magnesium Hydroxide (Milk Of Magnesia) 30 ml PO DAILY PRN PRN PRN Reason: Constipation Ondansetron HCl (Zofran) 4 mg IV Q8H PRN PRN PRN Reason: NAUSEA Sodium Chloride () 5 - 15 ml IV UD PRN PRN Reason: SALINE FLUSH Last Admin: 07/22/18 05:55 Dose: 10 ml Medical Necessity - Tobacco Use Smoking Status: Former smoker Assessment/Plan All Active Problems Ulcer of left thigh (Resolved) Sepsis (Acute) HCAP (healthcare-associated pneumonia) (Acute) UTI (urinary tract infection) (Acute) Bacteremia due to Streptococcus (Acute) Drug overdose (Acute) Suicide attempt (Acute) History of necrotizing fasciitis (Acute) CAP (community acquired pneumonia) (Acute) Lower GI bleed (Resolved) Acute on chronic diastolic heart failure (Acute) Acute bronchitis with asthma with acute exacerbation (Resolved) Acute bronchitis (Acute) Atrial fibrillation with RVR (Acute) Otitis externa (Acute) Metabolic alkalosis (Acute) Blood in stool (Acute) Anemia (Acute) Abdominal pain (Resolved) Patient is a 53-year-old lady morbidly obese with BMI of 65 admitted following an attempted suicide attempt with tramadol and Flexeril with 30 and 29 pills respectively. Patient was apparently intubated in the ED as a result of worsening respiratory status. Subsequently admitted to the intensive care unit. 1. Acute hypoxic hypercapnic respiratory failure secondary to intentional drug overdose in an apparent suicidal attempt. Patient was intubated in the emergency department and subsequently admitted to the intensive care unit. Consultation was placed to Dr. Hampton with intensive care ICU management deferred; patient was weaned off the vent on the morning of 07/23/2018. 2. Chronic hypoxic respiratory failure secondary to obesity hypoventilation syndrome patient is on baseline oxygen 4 L at night 3. Severe depression with intentional drug overdose in an apparent suicidal attempt, tramadol and Flexeril. She threatened to leave AMA once she was weaned off the vent. She was therefore pink slipped and consultation placed to crisis 4. Chronic diastolic congestive heart failure with known EF of 65% 5. Anemia secondary to anemia of chronic disorder: Monitoring H&H with plans to transfuse if hemoglobin falls below 7 or patient becomes symptomatic 6. Diabetes mellitus type 2 continued with home regimen in addition to Accu- Cheks before meals and at bedtime with sliding scale coverage 7. Mild intermittent asthma 8. Obstructive sleep apnea 9. Nonobstructing left renal calculus 10. Degenerative joint disease 11. Fatty liver do suspect nonalcoholic fatty liver disease from patient's morbid obesity as well as diabetes mellitus type 2 12. Chronic bilateral lower extremity lymphedema from venous insufficiency 13. Onychomycosis 14. Morbid obesity with BMI of 76 15. DVT prophylaxis: Lovenox Code Visit Inpatient E&M: 82023 Subs Hosp L3
--- NOTE | 2018-07-23 08:00 | RAD_ITS ---
STUDY: X-RAY CHEST REASON FOR EXAM: Female, 53 years old. Shortness of breath and cough TECHNIQUE: Single PA view of the chest. COMPARISON: 07/21/18 FINDINGS: Since the previous study, the patient has been extubated, and the NG tube removed. Chronic interstitial changes in both lung bailey with superimposed interstitial edema. No organized infiltrate or effusion. There is no demonstrated pleural abnormality. Normal size heart. Normal mediastinum and negra. Normal visualized pulmonary arteries. Normal visualized aortic arch and descending thoracic aorta. Normal visualized thoracic spine. Normal visualized ribs, clavicles, and shoulders. There is no demonstrated abnormality of the visualized soft tissue structures of the upper abdomen. RAD/Chest 1 View (Portable) IMPRESSION: Chronic interstitial changes with superimposed interstitial edema. Follow-up recommended to assure resolution Patient is been extubated and the NG tube removed since the previous study Electronically Signed: Mikael Marie MD at 17:42 EST , Service support ,
--- NOTE | 2018-07-23 08:34 | NURSING ---
Spoke w/ Rabia from the counseling center. Gave brief report of pt hx and condition. Stated they would be here as soon as able.
[2018-07-23 08:41] LABS: Absolute Lymphocyte Count 0.72 X10^3/ul (0.83-4.51); Absolute Neutrophil Count 6.7 X10^3/uL (2.0-7.7); Basophil# 0.02 X10^3/uL; Basophil% 0.2 % (0-1); Eosinophil# 0.15 X10^3/uL; Eosinophils% 1.8 % (0-5); Hematocrit 28.8 % (37-47); Hemoglobin 8.2 g/dl (12.0-15.0); Lymphocyte # 0.72 X10^3/ul (4.0); Lymphocyte % 8.9 % (19-41); Mean Corp Hgb Conc 28.5 g/gl (32-36); Mean Corpuscular Hgb 25.2 pg (27.0-32.0); Mean Corpuscular Volume 88.6 fL (81-99); Mean Platelet Vol. 8.9 fl (6.2-12.0); Monocyte# 0.45 X10^3/uL; Monocyte% 5.5 % (0-10); Neutrophil # 6.68 X10^3/uL (2.7-7.7); Neutrophil % 82.5 % (47-70); POSITIVE COUNT NO; POSITIVE DIFFERENTIAL NO; POSITIVE MORPHOLOGY NO; Platelet Count 217 K/mm3 (150-450); RBC Distribution Width SD 58.1 fl (35.1-43.9); Red Blood Count 3.25 M/mm3 (4.2-5.4); White Blood Count 8.1 K/mm3 (4.4-11.0)
[2018-07-23 08:52] LABS: BUN 14 mg/dL (7-18); Creatinine, Serum 0.68 mg/dL (0.55-1.02); EST Glomerular Filtration Rate 96 mL/min (>60); Estimated Creatinine Clearance 68.72 ml/min; Glucose 137 mg/dL (74-106)
[2018-07-23 08:53] LABS: ALB/GLOB Ratio 0.4 RATIO (0.9-2.4); AST(SGOT) 17 U/L (15-37); Alanine Aminotransfer ALT/SGPT 10 U/L (13-56); Albumin, Serum 2.3 g/dL (3.2-5.0); Alkaline Phosphatase 87 U/L (45-117); Anion Gap 8 (5-15); BUN/Creat Ratio 20.5 RATIO (10-20); Calcium,Total 8.1 mg/dL (8.5-10.1); Chloride 105 mmol/L (98-107); Est Glom Filt Rate - Afr Amer 116 mL/min (>60); Globulin 6.5 g/dL (2.2-4.2); Potassium 3.6 mmol/L (3.5-5.1); Protein, Total 8.8 g/dL (6.4-8.2); Sodium Level 139 mmol/L (136-145)
--- NOTE | 2018-07-23 10:13 | CASEMGMT ---
Social Work SW met with pt, spouse and two sisters today in pt room. Pt is no longer on vent and is able to speak with social media coordinator. Per RN, crisis has been called and will be in today to meet with pt and evaluate. SW introduced self to pt. Pt know to this SW and pt acknowledges SW however pt not making eye contact. SW explained that crisis would be in to meet with her today and pt confirmed she was aware of this. Pt making statements that she is not happy that her sisters are present as she does not feel they should have came to see her from [facility]. Pt sisters assuring pt that they want to be here with her. Sister stating that pt has been very angry since she has been taken off the vent. Support provided to pt family. Family states they have not located the living will and health care POA and would like SW to check with [facility] for a copy. Pt was agreeable to this and requested signs release of information. Release faxed to [facility]. SW will remain available should further needs arise. RADHA Pelayo
[2018-07-23] MEDS: Acetaminophen 325 MG Tablet 650 MG PO ×2 (11:27→19:55)
[2018-07-23] MEDS: 0.9% NaCl Peripheral Flush Adult/Peds IV (11:28)
[2018-07-23] MEDS: dilTIAZem CD 240 MG Capsule PO (11:31)
[2018-07-23] MEDS: Enoxaparin 40 MG/0.4 ML Syringe SC (11:32)
[2018-07-23] MEDS: Multivitamins,Ther W-Minerals Tablet 1 TABLET PO (11:32)
[2018-07-23] MEDS: AcetaZOLAMIDE 250 MG Tablet 125 MG PO ×2 (11:32→17:18)
[2018-07-23] MEDS: Pantoprazole Sodium 40 MG Tablet PO (11:32)
[2018-07-23] MEDS: CHLORHEXIDINE GLUC 2% CLOTH 1 EACH TOWELETTE TOPICAL (11:32)
[2018-07-23] MEDS: Metoprolol(XL)Succ 25 MG Tablet PO (11:33)
[2018-07-23 11:35] LABS: Bedside Glucose 145 mg/dL (70-110)
--- NOTE | 2018-07-23 12:53 | CHAPLAIN ---
Type of Pastoral Visit ___ Initial Visit _x__ Follow-up Visit ___ On-call Visit ___ General Patient Visit ___ Spiritual Assessment ___ Family Conference ___ Bereavement ___ Rapid Response ___ Code Blue ___ Other (describe below) Pastoral Care Referral From _x__ Patient _x__ Family ___ Nurse ___ Physician ___ Hand Leather Trimmer ___ Manufacturing Engineering Intern ___ Other (describe below) Sacrament/Intervention _x__ Active listening ___ Anointing ___ Sabianist ___ Bereavement ___ Communion ___ Shiela exploration ___ ___ Life review _x__ Prayer ___ Reconciliation ___ Sacrament of Sick _x__ Supportive presence ___ Wedding ___ Other (describe below) Pastoral Comments two sisters of patient are with her in room; pt was extubated today and claims she is doing better; pt open to spiritual support and prayer
[2018-07-23 13:31] LABS: Pathologist Review Reviewed
[2018-07-23 13:35] LABS: Pathologist Review Reviewed
--- NOTE | 2018-07-23 14:39 | NURSING ---
Crisis counselor at bedside for evaluation
[2018-07-23 17:01] LABS: Bedside Glucose 115 mg/dL (70-110)
[2018-07-23] MEDS: Gabapentin 300 MG Capsule PO (21:42)
[2018-07-23 21:51] LABS: Bedside Glucose 116 mg/dL (70-110)
[2018-07-24] VITALS (12 sets, daily range): BP systolic 105–127; BP diastolic 52–68; PULSE 74–84; RESP 12–23; TEMP 36.3–36.9; O2SAT 94–99
--- NOTE | 2018-07-24 05:55 | EKG12_ITS ---
Test Reason : AM EKG Blood Pressure : / mmHG Vent. Rate : 093 BPM Atrial Rate : 093 BPM P-R Int : 158 ms QRS Dur : 106 ms QT Int : 404 ms P-R-T Axes : 063 087 055 degrees QTc Int : 502 ms Normal sinus rhythm Prolonged QT Abnormal ECG When compared with ECG of 22-JUL-2018 05:51, MANUAL COMPARISON REQUIRED, DATA IS UNCONFIRMED Confirmed by SARAI RUBI, GRACE ([id number]), television news video editor VICK BAH ([id number]) on 07/24/2018 9:29:53 AM Referred By: Keshawn Oakes Confirmed By:GRACE MOON MD
--- NOTE | 2018-07-24 06:46 | PCM.PN.INT ---
Subjective: The patient was seen and examined at the bedside this morning. Events from the last 24 hours have been reviewed. The patient is currently afebrile, hemodynamically stable and maintaining appropriate oxygen saturations on 3 L/min via nasal cannula. The patient has done well from a respiratory perspective following extubation yesterday. The patient was evaluated by the crisis/mental health team, who felt that the patient is going to require inpatient admission. Objective: The patient's most recent lab work, culture data and imaging studies have all been personally reviewed. Respiratory viral panel was negative. General: Alert, Cooperative, No apparent distress HEENT: Atraumatic, PERRLA, Normocephalic Oral: No Gingival or Mucosal Lesions/ Ulcerations Neck: Supple, No Nodes, Trachea Midline, - - Large neck circumference with redundant soft tissue. Lungs: No rhonchi, No wheeze, No rales, Diminished Cardiovascular: Regular rate, Regular Rhythm, Normal S1, Normal S2, No murmurs Abdomen: Bowel Sounds Present, Soft, Non Tender, Obese Extremities: No clubbing, No cyanosis, Edema Skin: - - No significant change from previous Musculoskeletal: No Tenderness to Palpation of Joints or Extremities Lymphatic: No Cervical, Supraclavicular, or Inguinal Adenopathy Neurological: Neuro grossly intact Psych/Mental Status: Flat Affect Vital Signs Temp Pulse Resp BP Pulse Ox 36.3 C L 74 23 H 118/62 98 07/24/18 02:15 07/24/18 02:58 07/24/18 02:15 07/24/18 02:15 07/24/18 02:15 Oxygen Flow Rate (L/min) 3 Oxygen Delivery Method Nasal Cannula Weight: 330 lb 4.039 oz Body Mass Index (BMI) 64.6 Intake and Output for Last 24 Hours 07/22/18 07/23/18 07/24/18 23:59 23:59 23:59 Intake Total 1104 / 1104 1126 / 1126 200 / 200 Output Total 675 / 675 1475 / 1475 450 / 450 Balance 429 / 429 -349 / -349 -250 / -250 Labs (Last 48 Hours) 07/21/18 07/22/18 07/22/18 14:50 03:50 11:18 WBC RBC Hgb Hct MCV MCH MCHC RDW RDW Differential Plt Count MPV Immature Gran % (Auto) Neut % (Auto) Lymph % (Auto) [place] % (Auto) Eos % (Auto) Baso % (Auto) Absolute Neuts (auto) Absolute Lymphs (auto) Total Counted Diff Path Review Reviewed Reviewed Specimen Type Sample Site pH Bicarbonate Actual POC Total CO2 Base Excess O2 Saturation O2 % ABG pCO2 ABG pO2 José Antonio Test Respiration Rate O2 Delivery Device Vent Mode Tidal Volume POC PEEP Blood Gas Notified Whom Blood Gas Notified Time Sodium Potassium Chloride Carbon Dioxide Anion Gap BUN Creatinine Estim Creat Clear Calc Est GFR (MDRD) Af Amer Est GFR (MDRD) Non-Af BUN/Creatinine Ratio Glucose Calcium Total Bilirubin AST ALT Alkaline Phosphatase Total Protein Albumin Globulin Albumin/Globulin Ratio POC Glucose 103 07/22/18 07/22/18 07/23/18 13:15 17:08 00:19 WBC RBC Hgb Hct MCV MCH MCHC RDW RDW Differential Plt Count MPV Immature Gran % (Auto) Neut % (Auto) Lymph % (Auto) [place] % (Auto) Eos % (Auto) Baso % (Auto) Absolute Neuts (auto) Absolute Lymphs (auto) Total Counted Diff Path Review Specimen Type ART Sample Site R Radial pH 7.36 Bicarbonate Actual 26.2 H POC Total CO2 28 Base Excess 1 O2 Saturation 95 O2 % 30 ABG pCO2 46.8 H ABG pO2 77 José Antonio Test POS Respiration Rate 16 O2 Delivery Device Vent Vent Mode A-C Tidal Volume 450 POC PEEP 5 Blood Gas Notified Whom ICU MD Blood Gas Notified Time 1310 Sodium Potassium Chloride Carbon Dioxide Anion Gap BUN Creatinine Estim Creat Clear Calc Est GFR (MDRD) Af Amer Est GFR (MDRD) Non-Af BUN/Creatinine Ratio Glucose Calcium Total Bilirubin AST ALT Alkaline Phosphatase Total Protein Albumin Globulin Albumin/Globulin Ratio POC Glucose 104 163 H 07/23/18 07/23/18 07/23/18 05:02 08:15 08:15 WBC 8.1 RBC 3.25 L Hgb 8.2 L Hct 28.8 L MCV 88.6 MCH 25.2 L MCHC 28.5 L RDW 18.0 H RDW Differential 58.1 H Plt Count 217 MPV 8.9 Immature Gran % (Auto) 1.100 H Neut % (Auto) 82.5 H Lymph % (Auto) 8.9 L [place] % (Auto) 5.5 Eos % (Auto) 1.8 Baso % (Auto) 0.2 Absolute Neuts (auto) 6.7 Absolute Lymphs (auto) 0.72 L Total Counted Not Reportable Diff Path Review Specimen Type Sample Site pH Bicarbonate Actual POC Total CO2 Base Excess O2 Saturation O2 % ABG pCO2 ABG pO2 José Antonio Test Respiration Rate O2 Delivery Device Vent Mode Tidal Volume POC PEEP Blood Gas Notified Whom Blood Gas Notified Time Sodium 139 Potassium 3.6 Chloride 105 Carbon Dioxide 26.0 Anion Gap 8 BUN 14 Creatinine 0.68 Estim Creat Clear Calc 68.72 Est GFR (MDRD) Af Amer 116 Est GFR (MDRD) Non-Af 96 BUN/Creatinine Ratio 20.5 H Glucose 137 H Calcium 8.1 L Total Bilirubin 0.40 AST 17 ALT 10 L Alkaline Phosphatase 87 Total Protein 8.8 H Albumin 2.3 L Globulin 6.5 H Albumin/Globulin Ratio 0.4 L POC Glucose 173 H 07/23/18 07/23/18 07/23/18 11:24 16:53 21:40 WBC RBC Hgb Hct MCV MCH MCHC RDW RDW Differential Plt Count MPV Immature Gran % (Auto) Neut % (Auto) Lymph % (Auto) [place] % (Auto) Eos % (Auto) Baso % (Auto) Absolute Neuts (auto) Absolute Lymphs (auto) Total Counted Diff Path Review Specimen Type Sample Site pH Bicarbonate Actual POC Total CO2 Base Excess O2 Saturation O2 % ABG pCO2 ABG pO2 José Antonio Test Respiration Rate O2 Delivery Device Vent Mode Tidal Volume POC PEEP Blood Gas Notified Whom Blood Gas Notified Time Sodium Potassium Chloride Carbon Dioxide Anion Gap BUN Creatinine Estim Creat Clear Calc Est GFR (MDRD) Af Amer Est GFR (MDRD) Non-Af BUN/Creatinine Ratio Glucose Calcium Total Bilirubin AST ALT Alkaline Phosphatase Total Protein Albumin Globulin Albumin/Globulin Ratio POC Glucose 145 H 115 H 116 H Clinical Impression(s) from Imaging Studies Chest X-Ray 07/21/18 14:51 IMPRESSION: CHF. Cardiomegaly. Electronically Signed: Nj Markham MD at 15:25 EST , Service support , Chest X-Ray 07/21/18 16:10 IMPRESSION: Endotracheal tube at the right main bronchus. Feeding tube extends to the stomach. A subsequent image demonstrates the feeding tube having been pulled back. Stable CHF with edema and cardiac enlargement. Electronically Signed: Guy Reynolds MD at 17:24 EST , Service support , Chest X-Ray 07/21/18 16:17 IMPRESSION: Endotracheal tube has been pulled back and is now seen at the uriel. Feeding tube extends to the stomach. Stable CHF with edema. Electronically Signed: Guy Reynolds MD at 17:25 EST , Service support , Chest X-Ray 07/23/18 08:00 IMPRESSION: Chronic interstitial changes with superimposed interstitial edema. Follow-up recommended to assure resolution Patient is been extubated and the NG tube removed since the previous study Electronically Signed: Mikael Marie MD at 17:42 EST , Service support , Medical Necessity - Tobacco Use Smoking Status: Former smoker Assessment/Plan All Active Problems Ulcer of left thigh (Resolved) Sepsis (Acute) HCAP (healthcare-associated pneumonia) (Acute) UTI (urinary tract infection) (Acute) Bacteremia due to Streptococcus (Acute) Drug overdose (Acute) Suicide attempt (Acute) History of necrotizing fasciitis (Acute) CAP (community acquired pneumonia) (Acute) Lower GI bleed (Resolved) Acute on chronic diastolic heart failure (Acute) Acute bronchitis with asthma with acute exacerbation (Resolved) Acute bronchitis (Acute) Atrial fibrillation with RVR (Acute) Otitis externa (Acute) Metabolic alkalosis (Acute) Blood in stool (Acute) Anemia (Acute) Abdominal pain (Resolved) RECOMMENDATIONS: 1. Wean oxygen as tolerated. 2. Continue aerosol treatments 3. The patient is medically clear from my perspective for transfer to inpatient psychiatry. IMPRESSIONS: 1. Acute hypoxemic and hypercarbic respiratory failure The patient was intubated in the emergency department for airway protection after she presented in an encephalopathic state, likely secondary to her intentional overdose and hypercarbia secondary to alveolar hypoventilation. With time, the patient's mentation improved. She was subsequently extubated and has done well from a respiratory perspective. 2. Metabolic encephalopathy Resolved. Likely secondary to hypercarbia noted on presentation in conjunction with polypharmacy from the patient's intentional overdose. Poison control was contacted and made aware. No additional intervention is indicated at this time, other than to continue the current supportive measures. 3. Intentional overdose/suicide attempt Crisis evaluation completed. 4. Super morbid obesity/obstructive sleep apnea, noncompliant with nocturnal PAP therapy The patient has a known history of noncompliance with use of nocturnal Pap therapy. It has been recommended in the past that she follow-up in the pulmonary medicine clinic so that treatment can be reestablished. However, the patient to date has failed to do so. 5. Possible obstructive lung disease/diabetes/hypertension/hyperlipidemia/depression/nonalcoholic fatty liver disease/pulmonary hypertension Complicates care, management, recovery and prognosis. We will continue as needed aerosol treatments. This note was generated with [employer] dictation software. It may contain incorrect words, spelling, and punctuation that were not noted in checking the note before signing. Code Visit Inpatient E&M: 83398 Subs Hosp L3
--- NOTE | 2018-07-24 06:49 | PN_ITS ---
Subjective: The patient was seen and examined at the bedside this morning. Events from the last 24 hours have been reviewed. The patient is currently afebrile, hemodynamically stable and maintaining appropriate oxygen saturations on 3 L/min via nasal cannula. The patient has done well from a respiratory perspective following extubation yesterday. The patient was evaluated by the crisis/mental health team, who felt that the patient is going to require inpatient admission. Objective: The patient's most recent lab work, culture data and imaging studies have all been personally reviewed. Respiratory viral panel was negative. General: Alert, Cooperative, No apparent distress HEENT: Atraumatic, PERRLA, Normocephalic Oral: No Gingival or Mucosal Lesions/ Ulcerations Neck: Supple, No Nodes, Trachea Midline, - - Large neck circumference with redundant soft tissue. Lungs: No rhonchi, No wheeze, No rales, Diminished Cardiovascular: Regular rate, Regular Rhythm, Normal S1, Normal S2, No murmurs Abdomen: Bowel Sounds Present, Soft, Non Tender, Obese Extremities: No clubbing, No cyanosis, Edema Skin: - - No significant change from previous Musculoskeletal: No Tenderness to Palpation of Joints or Extremities Lymphatic: No Cervical, Supraclavicular, or Inguinal Adenopathy Neurological: Neuro grossly intact Psych/Mental Status: Flat Affect Vital Signs Temp Pulse Resp BP Pulse Ox 36.3 C L 74 23 H 118/62 98 07/24/18 02:15 07/24/18 02:58 07/24/18 02:15 07/24/18 02:15 07/24/18 02:15 Oxygen Flow Rate (L/min) 3 Oxygen Delivery Method Nasal Cannula Weight: 330 lb 4.039 oz Body Mass Index (BMI) 64.6 Intake and Output for Last 24 Hours 07/22/18 07/23/18 07/24/18 23:59 23:59 23:59 Intake Total 1104 / 1104 1126 / 1126 200 / 200 Output Total 675 / 675 1475 / 1475 450 / 450 Balance 429 / 429 -349 / -349 -250 / -250 Labs (Last 48 Hours) 07/21/18 07/22/18 07/22/18 14:50 03:50 11:18 WBC RBC Hgb Hct MCV MCH MCHC RDW RDW Differential Plt Count MPV Immature Gran % (Auto) Neut % (Auto) Lymph % (Auto) [place] % (Auto) Eos % (Auto) Baso % (Auto) Absolute Neuts (auto) Absolute Lymphs (auto) Total Counted Diff Path Review Reviewed Reviewed Specimen Type Sample Site pH Bicarbonate Actual POC Total CO2 Base Excess O2 Saturation O2 % ABG pCO2 ABG pO2 José Antonio Test Respiration Rate O2 Delivery Device Vent Mode Tidal Volume POC PEEP Blood Gas Notified Whom Blood Gas Notified Time Sodium Potassium Chloride Carbon Dioxide Anion Gap BUN Creatinine Estim Creat Clear Calc Est GFR (MDRD) Af Amer Est GFR (MDRD) Non-Af BUN/Creatinine Ratio Glucose Calcium Total Bilirubin AST ALT Alkaline Phosphatase Total Protein Albumin Globulin Albumin/Globulin Ratio POC Glucose 103 07/22/18 07/22/18 07/23/18 13:15 17:08 00:19 WBC RBC Hgb Hct MCV MCH MCHC RDW RDW Differential Plt Count MPV Immature Gran % (Auto) Neut % (Auto) Lymph % (Auto) [place] % (Auto) Eos % (Auto) Baso % (Auto) Absolute Neuts (auto) Absolute Lymphs (auto) Total Counted Diff Path Review Specimen Type ART Sample Site R Radial pH 7.36 Bicarbonate Actual 26.2 H POC Total CO2 28 Base Excess 1 O2 Saturation 95 O2 % 30 ABG pCO2 46.8 H ABG pO2 77 José Antonio Test POS Respiration Rate 16 O2 Delivery Device Vent Vent Mode A-C Tidal Volume 450 POC PEEP 5 Blood Gas Notified Whom ICU MD Blood Gas Notified Time 1310 Sodium Potassium Chloride Carbon Dioxide Anion Gap BUN Creatinine Estim Creat Clear Calc Est GFR (MDRD) Af Amer Est GFR (MDRD) Non-Af BUN/Creatinine Ratio Glucose Calcium Total Bilirubin AST ALT Alkaline Phosphatase Total Protein Albumin Globulin Albumin/Globulin Ratio POC Glucose 104 163 H 07/23/18 07/23/18 07/23/18 05:02 08:15 08:15 WBC 8.1 RBC 3.25 L Hgb 8.2 L Hct 28.8 L MCV 88.6 MCH 25.2 L MCHC 28.5 L RDW 18.0 H RDW Differential 58.1 H Plt Count 217 MPV 8.9 Immature Gran % (Auto) 1.100 H Neut % (Auto) 82.5 H Lymph % (Auto) 8.9 L [place] % (Auto) 5.5 Eos % (Auto) 1.8 Baso % (Auto) 0.2 Absolute Neuts (auto) 6.7 Absolute Lymphs (auto) 0.72 L Total Counted Not Reportable Diff Path Review Specimen Type Sample Site pH Bicarbonate Actual POC Total CO2 Base Excess O2 Saturation O2 % ABG pCO2 ABG pO2 José Antonio Test Respiration Rate O2 Delivery Device Vent Mode Tidal Volume POC PEEP Blood Gas Notified Whom Blood Gas Notified Time Sodium 139 Potassium 3.6 Chloride 105 Carbon Dioxide 26.0 Anion Gap 8 BUN 14 Creatinine 0.68 Estim Creat Clear Calc 68.72 Est GFR (MDRD) Af Amer 116 Est GFR (MDRD) Non-Af 96 BUN/Creatinine Ratio 20.5 H Glucose 137 H Calcium 8.1 L Total Bilirubin 0.40 AST 17 ALT 10 L Alkaline Phosphatase 87 Total Protein 8.8 H Albumin 2.3 L Globulin 6.5 H Albumin/Globulin Ratio 0.4 L POC Glucose 173 H 07/23/18 07/23/18 07/23/18 11:24 16:53 21:40 WBC RBC Hgb Hct MCV MCH MCHC RDW RDW Differential Plt Count MPV Immature Gran % (Auto) Neut % (Auto) Lymph % (Auto) [place] % (Auto) Eos % (Auto) Baso % (Auto) Absolute Neuts (auto) Absolute Lymphs (auto) Total Counted Diff Path Review Specimen Type Sample Site pH Bicarbonate Actual POC Total CO2 Base Excess O2 Saturation O2 % ABG pCO2 ABG pO2 José Antonio Test Respiration Rate O2 Delivery Device Vent Mode Tidal Volume POC PEEP Blood Gas Notified Whom Blood Gas Notified Time Sodium Potassium Chloride Carbon Dioxide Anion Gap BUN Creatinine Estim Creat Clear Calc Est GFR (MDRD) Af Amer Est GFR (MDRD) Non-Af BUN/Creatinine Ratio Glucose Calcium Total Bilirubin AST ALT Alkaline Phosphatase Total Protein Albumin Globulin Albumin/Globulin Ratio POC Glucose 145 H 115 H 116 H Clinical Impression(s) from Imaging Studies Chest X-Ray 07/21/18 14:51 IMPRESSION: CHF. Cardiomegaly. Electronically Signed: Nj Mrakham MD at 15:25 EST , Service support , Chest X-Ray 07/21/18 16:10 IMPRESSION: Endotracheal tube at the right main bronchus. Feeding tube extends to the stomach. A subsequent image demonstrates the feeding tube having been pulled back. Stable CHF with edema and cardiac enlargement. Electronically Signed: Guy Reynolds MD at 17:24 EST , Service support , Chest X-Ray 07/21/18 16:17 IMPRESSION: Endotracheal tube has been pulled back and is now seen at the uriel. Feeding tube extends to the stomach. Stable CHF with edema. Electronically Signed: Guy Reynolds MD at 17:25 EST , Service support , Chest X-Ray 07/23/18 08:00 IMPRESSION: Chronic interstitial changes with superimposed interstitial edema. Follow-up recommended to assure resolution Patient is been extubated and the NG tube removed since the previous study Electronically Signed: Mikael Marie MD at 17:42 EST , Service support , Medical Necessity - Tobacco Use Smoking Status: Former smoker Assessment/Plan All Active Problems Ulcer of left thigh (Resolved) Sepsis (Acute) HCAP (healthcare-associated pneumonia) (Acute) UTI (urinary tract infection) (Acute) Bacteremia due to Streptococcus (Acute) Drug overdose (Acute) Suicide attempt (Acute) History of necrotizing fasciitis (Acute) CAP (community acquired pneumonia) (Acute) Lower GI bleed (Resolved) Acute on chronic diastolic heart failure (Acute) Acute bronchitis with asthma with acute exacerbation (Resolved) Acute bronchitis (Acute) Atrial fibrillation with RVR (Acute) Otitis externa (Acute) Metabolic alkalosis (Acute) Blood in stool (Acute) Anemia (Acute) Abdominal pain (Resolved) RECOMMENDATIONS: 1. Wean oxygen as tolerated. 2. Continue aerosol treatments 3. The patient is medically clear from my perspective for transfer to inpatient psychiatry. IMPRESSIONS: 1. Acute hypoxemic and hypercarbic respiratory failure The patient was intubated in the emergency department for airway protection after she presented in an encephalopathic state, likely secondary to her intentional overdose and hypercarbia secondary to alveolar hypoventilation. With time, the patient's mentation improved. She was subsequently extubated and has done well from a respiratory perspective. 2. Metabolic encephalopathy Resolved. Likely secondary to hypercarbia noted on presentation in conjunction with polypharmacy from the patient's intentional overdose. Poison control was contacted and made aware. No additional intervention is indicated at this time, other than to continue the current supportive measures. 3. Intentional overdose/suicide attempt Crisis evaluation completed. 4. Super morbid obesity/obstructive sleep apnea, noncompliant with nocturnal PAP therapy The patient has a known history of noncompliance with use of nocturnal Pap therapy. It has been recommended in the past that she follow-up in the pulmona ry medicine clinic so that treatment can be reestablished. However, the patient to date has failed to do so. 5. Possible obstructive lung disease/diabetes/hypertension/hyperlipidemia/ depression/nonalcoholic fatty liver disease/pulmonary hypertension Complicates care, management, recovery and prognosis. We will continue as needed aerosol treatments. This note was generated with [employer] dictation software. It may contain incorrect words, spelling, and punctuation that were not noted in checking the note before signing. Code Visit Inpatient E&M: 19467 Subs Hosp L3
[2018-07-24 07:20] LABS: Bedside Glucose 124 mg/dL (70-110)
--- NOTE | 2018-07-24 07:48 | PCM.PN.HOSP ---
Patient Problems: Active and Suspected Problems Drug overdose (Acute) Suicide attempt (Acute) Subjective: Patient seen awaiting evaluation by crisis team with possibility of patient being discharged to an inpatient psychiatric facility for his severe depression. Objective: GENERAL: Awake. HEENT: Atraumatic; EYES; Anicteric, Normal Conjunctiva NECK; supple, normal thyroid, RESPIRATORY: Diminished to auscultation bilaterally, CARDIOVASCULAR: Regular S1 S2, GI: soft, non-tender, normoactive bowel sounds, : No Renal angle tenderness; EXTREMITIES: Bilateral stasis dermatitis MUSCULOSKELETAL: No Joint swelling NEURO: Unable to assess SKIN: No Rash PSYCH; flat affect Vitals/I&O's: Vital Signs Temp Pulse Resp BP Pulse Ox 97.4 F L 74 23 H 118/62 98 07/24/18 02:15 07/24/18 02:58 07/24/18 02:15 07/24/18 02:15 07/24/18 02:15 Oxygen Flow Rate (L/min) 3 Oxygen Delivery Method Nasal Cannula Weight: 149.8 kg Body Mass Index (BMI) 64.6 Intake and Output for Last 24 Hours 07/22/18 07/23/18 07/24/18 23:59 23:59 23:59 Intake Total 1104 / 1104 1126 / 1126 200 / 200 Output Total 675 / 675 1475 / 1475 450 / 450 Balance 429 / 429 -349 / -349 -250 / -250 Microbiology Past 72 Hours 07/23/18 08:54 Mucosa - Nasopharyngeal Respiratory Panel (PCR) - Final Laboratory Results 07/21/18 14:50: Diff Path Review Reviewed 07/22/18 03:50: Diff Path Review Reviewed 07/23/18 08:15: WBC 8.1, RBC 3.25 L, Hgb 8.2 L, Hct 28.8 L, MCV 88.6, MCH 25.2 L, MCHC 28.5 L, RDW 18.0 H, RDW Differential 58.1 H, Plt Count 217, MPV 8.9, Immature Gran % (Auto) 1.100 H, Neut % (Auto) 82.5 H, Lymph % (Auto) 8.9 L, [place] % (Auto) 5.5, Eos % (Auto) 1.8, Baso % (Auto) 0.2, Absolute Neuts (auto) 6.7, Absolute Lymphs (auto) 0.72 L, Total Counted Not Reportable 07/23/18 08:15: Sodium 139, Potassium 3.6, Chloride 105, Carbon Dioxide 26.0, Anion Gap 8, BUN 14, Creatinine 0.68, Estim Creat Clear Calc 68.72, Est GFR (MDRD) Af Amer 116, Est GFR (MDRD) Non-Af 96, BUN/Creatinine Ratio 20.5 H, Glucose 137 H, Calcium 8.1 L, Total Bilirubin 0.40, AST 17, ALT 10 L, Alkaline Phosphatase 87, Total Protein 8.8 H, Albumin 2.3 L, Globulin 6.5 H, Albumin/Globulin Ratio 0.4 L 07/23/18 11:24: POC Glucose 145 H 07/23/18 16:53: POC Glucose 115 H 07/23/18 21:40: POC Glucose 116 H 07/24/18 07:13: POC Glucose 124 H Current Medications Acetaminophen (Tylenol) 650 mg PO Q6H PRN PRN PRN Reason: PAIN Last Admin: 07/23/18 19:55 Dose: 650 mg Acetazolamide (Diamox) 125 mg PO TIDCM [facility] Last Admin: 07/23/18 17:18 Dose: 125 mg Albuterol Sulfate (Ventolin Aerosols) 2.5 mg INHALATION Q2H PRN PRN PRN Reason: SOB &/OR WHEEZING Chlorhexidine Gluconate () 1 each TOPICAL DAILY [facility] Last Admin: 07/23/18 11:32 Dose: 1 each Dextrose (D50w Syringe) 0 gm IV X1 PRN; Protocol PRN Reason: Hypoglycemia Diltiazem HCl (Cardizem Cd) 240 mg PO DAILY [facility] Last Admin: 07/23/18 11:31 Dose: 240 mg Enoxaparin Sodium (Lovenox) 40 mg SC DAILY@1000 [facility] Last Admin: 07/23/18 11:32 Dose: 40 mg Gabapentin (Neurontin) 300 mg PO QHS [facility] Last Admin: 07/23/18 21:42 Dose: 300 mg Glucagon () 1 mg IM .X1 PRN PRN Reason: Hypoglycemia Sodium Chloride () 250 mls @ 15 mls/hr IV .[id number] PRN PRN Reason: SALINE FLUSH Insulin Human Lispro (Humalog Kwikpen (Bkc)) 0 unit SQ ACHS [facility]; Protocol Last Admin: 07/23/18 21:41 Dose: Not Given Magnesium Hydroxide (Milk Of Magnesia) 30 ml PO DAILY PRN PRN PRN Reason: Constipation Metoprolol Succinate (Toprol Xl (Beta Vikki)) 25 mg PO DAILY [facility] Last Admin: 07/23/18 11:33 Dose: 25 mg Multivitamins/Minerals (Multivitamin With Minerals) 1 tablet PO DAILY@0800 [facility] Last Admin: 07/23/18 11:32 Dose: 1 tablet Ondansetron HCl (Zofran) 4 mg IV Q8H PRN PRN PRN Reason: NAUSEA Pantoprazole Sodium (Protonix) 40 mg PO DAILY [facility] Last Admin: 07/23/18 11:32 Dose: 40 mg Polysaccharide [facility] ([facility] 150[facility] Sodium Chloride () 5 - 15 ml IV UD PRN PRN Reason: SALINE FLUSH Last Admin: 07/23/18 11:28 Dose: 10 ml Medical Necessity - Tobacco Use Smoking Status: Former smoker Assessment/Plan All Active Problems Ulcer of left thigh (Resolved) Sepsis (Acute) HCAP (healthcare-associated pneumonia) (Acute) UTI (urinary tract infection) (Acute) Bacteremia due to Streptococcus (Acute) Drug overdose (Acute) Suicide attempt (Acute) History of necrotizing fasciitis (Acute) CAP (community acquired pneumonia) (Acute) Lower GI bleed (Resolved) Acute on chronic diastolic heart failure (Acute) Acute bronchitis with asthma with acute exacerbation (Resolved) Acute bronchitis (Acute) Atrial fibrillation with RVR (Acute) Otitis externa (Acute) Metabolic alkalosis (Acute) Blood in stool (Acute) Anemia (Acute) Abdominal pain (Resolved) Patient is a 53-year-old lady morbidly obese with BMI of 65 admitted following an attempted suicide attempt with tramadol and Flexeril with 30 and 29 pills respectively. Patient was apparently intubated in the ED as a result of worsening respiratory status. Subsequently admitted to the intensive care unit. 1. Acute hypoxic hypercapnic respiratory failure secondary to intentional drug overdose in an apparent suicidal attempt. Patient was intubated in the emergency department and subsequently admitted to the intensive care unit. Consultation was placed to Dr. Hampton with intensive care ICU management deferred; patient was weaned off the vent on the morning of 07/23/2018. Patient remains medically stable as of 07/24/2018 to be evaluated and transferred to an inpatient psychiatric facility. 2. Chronic hypoxic respiratory failure secondary to obesity hypoventilation syndrome patient is on baseline oxygen 4 L at night 3. Severe depression with intentional drug overdose in an apparent suicidal attempt, tramadol and Flexeril. She threatened to leave AMA once she was weaned off the vent. She was therefore pink slipped and consultation placed to crisis. Patient remains medically stable as of 07/24/2018 to be evaluated and transferred to an inpatient psychiatric facility. 4. Chronic diastolic congestive heart failure with known EF of 65% 5. Anemia secondary to anemia of chronic disorder: Monitoring H&H with plans to transfuse if hemoglobin falls below 7 or patient becomes symptomatic 6. Diabetes mellitus type 2 continued with home regimen in addition to Accu-Cheks before meals and at bedtime with sliding scale coverage 7. Mild intermittent asthma 8. Obstructive sleep apnea 9. Nonobstructing left renal calculus 10. Degenerative joint disease 11. Fatty liver do suspect nonalcoholic fatty liver disease from patient's morbid obesity as well as diabetes mellitus type 2 12. Chronic bilateral lower extremity lymphedema from venous insufficiency 13. Onychomycosis 14. Morbid obesity with BMI of 76 15. DVT prophylaxis: Lovenox Code Visit Inpatient E&M: 52521 Subs Hosp L3
--- NOTE | 2018-07-24 07:53 | PN_ITS ---
Patient Problems: Active and Suspected Problems Drug overdose (Acute) Suicide attempt (Acute) Subjective: Patient seen awaiting evaluation by crisis team with possibility of patient being discharged to an inpatient psychiatric facility for his severe depression. Objective: GENERAL: Awake. HEENT: Atraumatic; EYES; Anicteric, Normal Conjunctiva NECK; supple, normal thyroid, RESPIRATORY: Diminished to auscultation bilaterally, CARDIOVASCULAR: Regular S1 S2, GI: soft, non-tender, normoactive bowel sounds, : No Renal angle tenderness; EXTREMITIES: Bilateral stasis dermatitis MUSCULOSKELETAL: No Joint swelling NEURO: Unable to assess SKIN: No Rash PSYCH; flat affect Vitals/I&O's: Vital Signs Temp Pulse Resp BP Pulse Ox 97.4 F L 74 23 H 118/62 98 07/24/18 02:15 07/24/18 02:58 07/24/18 02:15 07/24/18 02:15 07/24/18 02:15 Oxygen Flow Rate (L/min) 3 Oxygen Delivery Method Nasal Cannula Weight: 149.8 kg Body Mass Index (BMI) 64.6 Intake and Output for Last 24 Hours 07/22/18 07/23/18 07/24/18 23:59 23:59 23:59 Intake Total 1104 / 1104 1126 / 1126 200 / 200 Output Total 675 / 675 1475 / 1475 450 / 450 Balance 429 / 429 -349 / -349 -250 / -250 Microbiology Past 72 Hours 07/23/18 08:54 Mucosa - Nasopharyngeal Respiratory Panel (PCR) - Final Laboratory Results 07/21/18 14:50: Diff Path Review Reviewed 07/22/18 03:50: Diff Path Review Reviewed 07/23/18 08:15: WBC 8.1, RBC 3.25 L, Hgb 8.2 L, Hct 28.8 L, MCV 88.6, MCH 25.2 L , MCHC 28.5 L, RDW 18.0 H, RDW Differential 58.1 H, Plt Count 217, MPV 8.9, Immature Gran % (Auto) 1.100 H, Neut % (Auto) 82.5 H, Lymph % (Auto) 8.9 L, [place] % (Auto) 5.5, Eos % (Auto) 1.8, Baso % (Auto) 0.2, Absolute Neuts (auto) 6.7, Absolute Lymphs (auto) 0.72 L, Total Counted Not Reportable 07/23/18 08:15: Sodium 139, Potassium 3.6, Chloride 105, Carbon Dioxide 26.0, Anion Gap 8, BUN 14, Creatinine 0.68, Estim Creat Clear Calc 68.72, Est GFR (MDRD) Af Amer 116, Est GFR (MDRD) Non-Af 96, BUN/Creatinine Ratio 20.5 H, Glucose 137 H, Calcium 8.1 L, Total Bilirubin 0.40, AST 17, ALT 10 L, Alkaline Phosphatase 87, Total Protein 8.8 H, Albumin 2.3 L, Globulin 6.5 H, Albumin/Globulin Ratio 0.4 L 07/23/18 11:24: POC Glucose 145 H 07/23/18 16:53: POC Glucose 115 H 07/23/18 21:40: POC Glucose 116 H 07/24/18 07:13: POC Glucose 124 H Current Medications Acetaminophen (Tylenol) 650 mg PO Q6H PRN PRN PRN Reason: PAIN Last Admin: 07/23/18 19:55 Dose: 650 mg Acetazolamide (Diamox) 125 mg PO TIDCM [facility] Last Admin: 07/23/18 17:18 Dose: 125 mg Albuterol Sulfate (Ventolin Aerosols) 2.5 mg INHALATION Q2H PRN PRN PRN Reason: SOB &/OR WHEEZING Chlorhexidine Gluconate () 1 each TOPICAL DAILY [facility] Last Admin: 07/23/18 11:32 Dose: 1 each Dextrose (D50w Syringe) 0 gm IV X1 PRN; Protocol PRN Reason: Hypoglycemia Diltiazem HCl (Cardizem Cd) 240 mg PO DAILY [facility] Last Admin: 07/23/18 11:31 Dose: 240 mg Enoxaparin Sodium (Lovenox) 40 mg SC DAILY@1000 [facility] Last Admin: 07/23/18 11:32 Dose: 40 mg Gabapentin (Neurontin) 300 mg PO QHS [facility] Last Admin: 07/23/18 21:42 Dose: 300 mg Glucagon () 1 mg IM .X1 PRN PRN Reason: Hypoglycemia Sodium Chloride () 250 mls @ 15 mls/hr IV .[id number] PRN PRN Reason: SALINE FLUSH Insulin Human Lispro (Humalog Kwikpen (Bkc)) 0 unit SQ ACHS [facility]; Protocol Last Admin: 07/23/18 21:41 Dose: Not Given Magnesium Hydroxide (Milk Of Magnesia) 30 ml PO DAILY PRN PRN PRN Reason: Constipation Metoprolol Succinate (Toprol Xl (Beta Vikki)) 25 mg PO DAILY [facility] Last Admin: 07/23/18 11:33 Dose: 25 mg Multivitamins/Minerals (Multivitamin With Minerals) 1 tablet PO DAILY@0800 [facility] Last Admin: 07/23/18 11:32 Dose: 1 tablet Ondansetron HCl (Zofran) 4 mg IV Q8H PRN PRN PRN Reason: NAUSEA Pantoprazole Sodium (Protonix) 40 mg PO DAILY [facility] Last Admin: 07/23/18 11:32 Dose: 40 mg Polysaccharide Iron [facility] (Ferrex 150) [facility] Sodium Chloride () 5 - 15 ml IV UD PRN PRN Reason: SALINE FLUSH Last Admin: 07/23/18 11:28 Dose: 10 ml Medical Necessity - Tobacco Use Smoking Status: Former smoker Assessment/Plan All Active Problems Ulcer of left thigh (Resolved) Sepsis (Acute) HCAP (healthcare-associated pneumonia) (Acute) UTI (urinary tract infection) (Acute) Bacteremia due to Streptococcus (Acute) Drug overdose (Acute) Suicide attempt (Acute) History of necrotizing fasciitis (Acute) CAP (community acquired pneumonia) (Acute) Lower GI bleed (Resolved) Acute on chronic diastolic heart failure (Acute) Acute bronchitis with asthma with acute exacerbation (Resolved) Acute bronchitis (Acute) Atrial fibrillation with RVR (Acute) Otitis externa (Acute) Metabolic alkalosis (Acute) Blood in stool (Acute) Anemia (Acute) Abdominal pain (Resolved) Patient is a 53-year-old lady morbidly obese with BMI of 65 admitted following an attempted suicide attempt with tramadol and Flexeril with 30 and 29 pills respectively. Patient was apparently intubated in the ED as a result of worsening respiratory status. Subsequently admitted to the intensive care unit. 1. Acute hypoxic hypercapnic respiratory failure secondary to intentional drug overdose in an apparent suicidal attempt. Patient was intubated in the emergency department and subsequently admitted to the intensive care unit. Consultation was placed to Dr. Hampton with intensive care ICU management deferred; patient was weaned off the vent on the morning of 07/23/2018. Patient remains medically stable as of 07/24/2018 to be evaluated and transferred to an inpatient psychiatric facility. 2. Chronic hypoxic respiratory failure secondary to obesity hypoventilation syndrome patient is on baseline oxygen 4 L at night 3. Severe depression with intentional drug overdose in an apparent suicidal attempt, tramadol and Flexeril. She threatened to leave AMA once she was weaned off the vent. She was therefore pink slipped and consultation placed to crisis. Patient remains medically stable as of 07/24/2018 to be evaluated and transferred to an inpatient psychiatric facility. 4. Chronic diastolic congestive heart failure with known EF of 65% 5. Anemia secondary to anemia of chronic disorder: Monitoring H&H with plans to transfuse if hemoglobin falls below 7 or patient becomes symptomatic 6. Diabetes mellitus type 2 continued with home regimen in addition to Accu- Cheks before meals and at bedtime with sliding scale coverage 7. Mild intermittent asthma 8. Obstructive sleep apnea 9. Nonobstructing left renal calculus 10. Degenerative joint disease 11. Fatty liver do suspect nonalcoholic fatty liver disease from patient's morbid obesity as well as diabetes mellitus type 2 12. Chronic bilateral lower extremity lymphedema from venous insufficiency 13. Onychomycosis 14. Morbid obesity with BMI of 76 15. DVT prophylaxis: Lovenox Code Visit Inpatient E&M: 00439 Subs Hosp L3
[2018-07-24] MEDS: AcetaZOLAMIDE 250 MG Tablet 125 MG PO ×3 (08:48→17:43)
[2018-07-24] MEDS: dilTIAZem CD 240 MG Capsule PO (08:49)
[2018-07-24] MEDS: Iron Polysaccharide Complex 150 MG CAPSULE PO (08:50)
[2018-07-24] MEDS: Enoxaparin 40 MG/0.4 ML Syringe SC (08:50)
[2018-07-24] MEDS: Multivitamins,Ther W-Minerals Tablet 1 TABLET PO (08:50)
[2018-07-24] MEDS: Metoprolol(XL)Succ 25 MG Tablet PO (08:51)
[2018-07-24] MEDS: CHLORHEXIDINE GLUC 2% CLOTH 1 EACH TOWELETTE TOPICAL (08:53)
[2018-07-24] MEDS: Pantoprazole Sodium 40 MG Tablet PO (08:53)
--- NOTE | 2018-07-24 11:05 | CASEMGMT ---
The equal opportunity representative/INDUSTRIAL MANUFACTURING TECHNICIAN had called crisis this morning, did not receive a call back. SW called and spoke w/Basilia, asked when someone will be here to see pt. She explained that pt was not medically cleared yesterday so Masha was here yesterday and pt was denied everywhere due to not being medically ready. KHUSHBOO explained that pt is medically ready today, read to her Dr. Smith's note. She states Masha starts work in about 45 minutes so will send her over to work on this. KHUSHBOO will continue to follow and remains available for assist as needed. HOLLIE Browne, FINANCIAL SERVICES SPECIALIST
[2018-07-24 11:06] LABS: Bedside Glucose 127 mg/dL (70-110)
--- NOTE | 2018-07-24 12:26 | CASEMGMT ---
KHUSHBOO spoke to Masha from [facility]. She states that she tried 15 places yesterday and they all said no, only [facility] will consider pt. She asked KHUSHBOO to send updates and she will send them on to [facility]. KHUSHBOO faxed updates to [facility], no new labs have been done since yesterday. KHUSHBOO let Masha know this and to let KHUSHBOO know if [facility] is requiring labs and if so which ones. She is to let this SW know. HOLLIE Browne, MOLD STRIPPER
--- NOTE | 2018-07-24 13:57 | CASEMGMT ---
Addendum entered by Danelle Macias 07/24/18 15:09: SW faxed the labs to [facility], left a message for Masha at [facility] letting her know that the labs were faxed over. This SW is leaving for the day, SW left in the message also for Masha to call ICU directly with any questions or updates. HOLLIE Browne, DIRECTOR TEEN POST Original Note: Addendum entered by Danelle Macias 07/24/18 14:49: [facility] requiring labs. They are pending at present, once they are complete, SW will fax to [facility] directly: [phone], and let Masha at [facility] know that the labs were faxed. HOLLIE Browne, DIRECTOR TEEN POST Original Note: SW spoke w/Masha from crisis again, she did not receive the fax. She is in the ER now, SW tubed her the informations. KHUSHBOO asked again about placement for pt, and what medical care pt needs as per the psych hospitals--as pt seems to need more personal care than medical care. Masha explained that the [facility] hospitals are more used to taking pt who are able to complete their ADL's. SW inquired what to do in this situation where a pt won't complete her ADL's, most likely due to her depression. Masha states understanding of the situation and will speak to Basilia, supervisor fur dressing, if [facility] cannot take pt. She states she tried 15 places yesterday. SW remains available for assist as needed. HOLLIE Browne, DIRECTOR TEEN POST
[2018-07-24 14:53] LABS: Absolute Lymphocyte Count 0.67 X10^3/ul (0.83-4.51); Absolute Neutrophil Count 8.1 X10^3/uL (2.0-7.7); Basophil# 0.01 X10^3/uL; Basophil% 0.1 % (0-1); Eosinophil# 0.18 X10^3/uL; Eosinophils% 1.9 % (0-5); Hematocrit 29.6 % (37-47); Hemoglobin 8.1 g/dl (12.0-15.0); Lymphocyte # 0.67 X10^3/ul (4.0); Lymphocyte % 7.1 % (19-41); Mean Corp Hgb Conc 27.4 g/gl (32-36); Mean Corpuscular Hgb 25.3 pg (27.0-32.0); Mean Corpuscular Volume 92.5 fL (81-99); Mean Platelet Vol. 8.8 fl (6.2-12.0); Monocyte# 0.38 X10^3/uL; Monocyte% 4.1 % (0-10); Neutrophil # 8.06 X10^3/uL (2.7-7.7); Neutrophil % 85.9 % (47-70); Platelet Count 246 K/mm3 (150-450); RBC Distribution Width CV 17.9 % (11.6-14.6); RBC Distribution Width SD 58.2 fl (35.1-43.9); White Blood Count 9.4 K/mm3 (4.4-11.0)
[2018-07-24 14:54] LABS: POSITIVE COUNT NO; POSITIVE DIFFERENTIAL NO; POSITIVE MORPHOLOGY NO
[2018-07-24 15:04] LABS: Anion Gap 7 (5-15); BUN 11 mg/dL (7-18); BUN/Creat Ratio 15.1 RATIO (10-20); Calcium,Total 8.2 mg/dL (8.5-10.1); Chloride 103 mmol/L (98-107); Creatinine, Serum 0.73 mg/dL (0.55-1.02); EST Glomerular Filtration Rate 89 mL/min (>60); Est Glom Filt Rate - Afr Amer 107 mL/min (>60); Estimated Creatinine Clearance 64.02 ml/min; Glucose 156 mg/dL (74-106); Magnesium 2.1 mg/dL (1.6-2.6); Potassium 3.8 mmol/L (3.5-5.1); Sodium Level 137 mmol/L (136-145)
[2018-07-24 16:51] LABS: Bedside Glucose 130 mg/dL (70-110)
[2018-07-24] MEDS: Acetaminophen 325 MG Tablet 650 MG PO (21:03)
[2018-07-24] MEDS: Gabapentin 300 MG Capsule PO (21:03)
[2018-07-24 21:06] LABS: Bedside Glucose 124 mg/dL (70-110)
[2018-07-25] VITALS (15 sets, daily range): BP systolic 100–120; BP diastolic 59–87; PULSE 68–75; RESP 15–23; TEMP 36.1–36.9; O2SAT 94–99
[2018-07-25] MEDS: Acetaminophen 325 MG Tablet 650 MG PO (03:09)
[2018-07-25 06:36] LABS: Bedside Glucose 126 mg/dL (70-110)
--- NOTE | 2018-07-25 07:12 | PN_ITS ---
Patient Problems: Active and Suspected Problems Drug overdose (Acute) Suicide attempt (Acute) Subjective: Patient seen apparently had a relatively uneventful night. Complaining of right wrist pain which she attributes to gout. Patient psychiatric facility willing to take the patient for treatment of his severe depression and suicidal ideation is yet to be found. Objective: GENERAL: Awake. HEENT: Atraumatic; EYES; Anicteric, Normal Conjunctiva NECK; supple, normal thyroid, RESPIRATORY: Diminished to auscultation bilaterally, CARDIOVASCULAR: Regular S1 S2, GI: soft, non-tender, normoactive bowel sounds, : No Renal angle tenderness; EXTREMITIES: Bilateral stasis dermatitis MUSCULOSKELETAL: No Joint swelling NEURO: Unable to assess SKIN: No Rash PSYCH; flat affect Vitals/I&O's: Vital Signs Temp Pulse Resp BP Pulse Ox 97.2 F L 69 15 100/87 H 99 07/25/18 03:00 07/25/18 04:10 07/25/18 03:00 07/25/18 03:00 07/25/18 07:07 Oxygen Flow Rate (L/min) 4 Oxygen Delivery Method Nasal Cannula Weight: 148.5 kg Body Mass Index (BMI) 64.6 Intake and Output for Last 24 Hours 07/23/18 07/24/18 07/25/18 23:59 23:59 23:59 Intake Total 1126 / 1126 1000 / 1000 120 / 120 Output Total 1475 / 1475 1150 / 1150 450 / 450 Balance -349 / -349 -150 / -150 -330 / -330 Microbiology Past 72 Hours 07/23/18 08:54 Mucosa - Nasopharyngeal Respiratory Panel (PCR) - Final Laboratory Results 07/24/18 07:13: POC Glucose 124 H 07/24/18 11:01: POC Glucose 127 H 07/24/18 14:45: WBC 9.4, RBC 3.20 L, Hgb 8.1 L, Hct 29.6 L, MCV 92.5, MCH 25.3 L , MCHC 27.4 L, RDW 17.9 H, RDW Differential 58.2 H, Plt Count 246, MPV 8.8, Immature Gran % (Auto) 0.900, Neut % (Auto) 85.9 H, Lymph % (Auto) 7.1 L, [place] % (Auto) 4.1, Eos % (Auto) 1.9, Baso % (Auto) 0.1, Absolute Neuts (auto) 8.1 H, Absolute Lymphs (auto) 0.67 L, Total Counted Not Reportable 07/24/18 14:45: Sodium 137, Potassium 3.8, Chloride 103, Carbon Dioxide 27.0, Anion Gap 7, BUN 11, Creatinine 0.73, Estim Creat Clear Calc 64.02, Est GFR (MDRD) Af Amer 107, Est GFR (MDRD) Non-Af 89, BUN/Creatinine Ratio 15.1, Glucose 156 H, Calcium 8.2 L, Magnesium 2.1 07/24/18 16:32: POC Glucose 130 H 07/24/18 20:49: POC Glucose 124 H 07/25/18 06:31: POC Glucose 126 H Current Medications Acetaminophen (Tylenol) 650 mg PO Q6H PRN PRN PRN Reason: PAIN Last Admin: 07/25/18 03:09 Dose: 650 mg Acetazolamide (Diamox) 125 mg PO TIDCM [facility] Last Admin: 07/24/18 17:43 Dose: 125 mg Albuterol Sulfate (Ventolin Aerosols) 2.5 mg INHALATION Q2H PRN PRN PRN Reason: SOB &/OR WHEEZING Chlorhexidine Gluconate () 1 each TOPICAL DAILY [facility] Last Admin: 07/24/18 08:53 Dose: 1 each Dextrose (D50w Syringe) 0 gm IV X1 PRN; Protocol PRN Reason: Hypoglycemia Diltiazem HCl (Cardizem Cd) 240 mg PO DAILY [facility] Last Admin: 07/24/18 08:49 Dose: 240 mg Enoxaparin Sodium (Lovenox) 40 mg SC DAILY@1000 [facility] Last Admin: 07/24/18 08:50 Dose: 40 mg Gabapentin (Neurontin) 300 mg PO QHS [facility] Last Admin: 07/24/18 21:03 Dose: 300 mg Glucagon () 1 mg IM .X1 PRN PRN Reason: Hypoglycemia Sodium Chloride () 250 mls @ 15 mls/hr IV .[id number] PRN PRN Reason: SALINE FLUSH Insulin Human Lispro (Humalog Kwikpen (Bkc)) 0 unit SQ ACHS [facility]; Protocol Last Admin: 07/25/18 06:35 Dose: Not Given Magnesium Hydroxide (Milk Of Magnesia) 30 ml PO DAILY PRN PRN PRN Reason: Constipation Metoprolol Succinate (Toprol Xl (Beta Vikki)) 25 mg PO DAILY [facility] Last Admin: 07/24/18 08:51 Dose: 25 mg Multivitamins/Minerals (Multivitamin With Minerals) 1 tablet PO DAILY@0800 [facility] Last Admin: 07/24/18 08:50 Dose: 1 tablet Ondansetron HCl (Zofran) 4 mg IV Q8H PRN PRN PRN Reason: NAUSEA Pantoprazole Sodium (Protonix) 40 mg PO DAILY [facility] Last Admin: 07/24/18 08:53 Dose: 40 mg Polysaccharide Iron Complex (Ferrex 150) 150 mg PO DAILYCM [facility] Last Admin: 07/24/18 08:50 Dose: 150 mg Sodium Chloride () 5 - 15 ml IV UD PRN PRN Reason: SALINE FLUSH Last Admin: 07/23/18 11:28 Dose: 10 ml Medical Necessity - Tobacco Use Smoking Status: Former smoker Assessment/Plan All Active Problems Ulcer of left thigh (Resolved) Sepsis (Acute) HCAP (healthcare-associated pneumonia) (Acute) UTI (urinary tract infection) (Acute) Bacteremia due to Streptococcus (Acute) Drug overdose (Acute) Suicide attempt (Acute) History of necrotizing fasciitis (Acute) CAP (community acquired pneumonia) (Acute) Lower GI bleed (Resolved) Acute on chronic diastolic heart failure (Acute) Acute bronchitis with asthma with acute exacerbation (Resolved) Acute bronchitis (Acute) Atrial fibrillation with RVR (Acute) Otitis externa (Acute) Metabolic alkalosis (Acute) Blood in stool (Acute) Anemia (Acute) Abdominal pain (Resolved) Patient is a 53-year-old lady morbidly obese with BMI of 65 admitted following an attempted suicide attempt with tramadol and Flexeril with 30 and 29 pills respectively. Patient was apparently intubated in the ED as a result of wo rsening respiratory status. Subsequently admitted to the intensive care unit. 1. Acute hypoxic hypercapnic respiratory failure secondary to intentional drug overdose in an apparent suicidal attempt. Patient was intubated in the emergency department and subsequently admitted to the intensive care unit. Consultation was placed to Dr. Hampton with intensive care ICU management deferred; patient was weaned off the vent on the morning of 07/23/2018. Patient remains medically stable as of 07/24/2018 to be evaluated and transferred to an inpatient psychiatric facility. No facility has yet been found willing to accept patient as of 07/25/2018 2. Chronic hypoxic respiratory failure secondary to obesity hypoventilation syndrome patient is on baseline oxygen 4 L at night 3. Severe depression with intentional drug overdose in an apparent suicidal attempt, tramadol and Flexeril. She threatened to leave AMA once she was weaned off the vent. She was therefore pink slipped and consultation placed to crisis. Patient remains medically stable as of 07/24/2018 to be evaluated and transferred to an inpatient psychiatric facility. 4. Chronic diastolic congestive heart failure with known EF of 65% 5. Anemia secondary to anemia of chronic disorder: Monitoring H&H with plans to transfuse if hemoglobin falls below 7 or patient becomes symptomatic 6. Diabetes mellitus type 2 continued with home regimen in addition to Accu- Cheks before meals and at bedtime with sliding scale coverage 7. Mild intermittent asthma 8. Obstructive sleep apnea 9. Nonobstructing left renal calculus 10. Degenerative joint disease 11. Fatty liver do suspect nonalcoholic fatty liver disease from patient's morbid obesity as well as diabetes mellitus type 2 12. Chronic bilateral lower extremity lymphedema from venous insufficiency 13. Onychomycosis 14. Morbid obesity with BMI of 76 15. DVT prophylaxis: Lovenox Code Visit Inpatient E&M: 31276 Subs Hosp L2
[2018-07-25] MEDS: Iron Polysaccharide Complex 150 MG CAPSULE PO (08:37)
[2018-07-25] MEDS: Multivitamins,Ther W-Minerals Tablet 1 TABLET PO (08:37)
[2018-07-25] MEDS: AcetaZOLAMIDE 250 MG Tablet 125 MG PO ×3 (08:37→17:51)
[2018-07-25] MEDS: Enoxaparin 40 MG/0.4 ML Syringe SC (08:52)
[2018-07-25] MEDS: dilTIAZem CD 240 MG Capsule PO (08:52)
[2018-07-25] MEDS: Pantoprazole Sodium 40 MG Tablet PO (08:52)
[2018-07-25] MEDS: CHLORHEXIDINE GLUC 2% CLOTH 1 EACH TOWELETTE TOPICAL (08:53)
[2018-07-25] MEDS: Metoprolol(XL)Succ 25 MG Tablet PO (08:53)
--- NOTE | 2018-07-25 10:56 | NURSING ---
Spoke with Basilia from Crisis. Per Malini Ansari at [facility], they suggest to Dr. schulz to attempt to get pt a bed at [facility] that allows inpatient psych consult. i.e.: [facility], [facility], [facility], [facility]. This would allow psych care while her O2 and ADL needs can be met. If this was unsuccessful then they would take the issue to State Level. Dr. Smith made aware. Per Dr. Smith this will not work because she only needs psych care. Basilia notified of this and stated she would contact Malini again to start the process of continuing to state level.
[2018-07-25 11:31] LABS: Bedside Glucose 145 mg/dL (70-110)
[2018-07-25 16:56] LABS: Bedside Glucose 112 mg/dL (70-110)
[2018-07-25] MEDS: Gabapentin 300 MG Capsule PO (21:37)
[2018-07-25 21:46] LABS: Bedside Glucose 124 mg/dL (70-110)
[2018-07-26] VITALS (15 sets, daily range): BP systolic 112–123; BP diastolic 54–67; PULSE 59–90; RESP 15–24; TEMP 36.1–36.6; O2SAT 97–100
--- NOTE | 2018-07-26 07:14 | PCM.PN.HOSP ---
Patient Problems: Active and Suspected Problems Drug overdose (Acute) Suicide attempt (Acute) Subjective: Patient seen remains in ICU had a relatively uneventful night. The suggestion from crisis center is for have patient transferred to the medical service and a tertiary care facility however patient does not have any medical indication for transfer to an acute facility. Plan is for crisis to escalate patient's case to the state level to secure an inpatient psychiatric facility Objective: GENERAL: Awake. HEENT: Atraumatic; EYES; Anicteric, Normal Conjunctiva NECK; supple, normal thyroid, RESPIRATORY: Diminished to auscultation bilaterally, CARDIOVASCULAR: Regular S1 S2, GI: soft, non-tender, normoactive bowel sounds, : No Renal angle tenderness; EXTREMITIES: Bilateral stasis dermatitis MUSCULOSKELETAL: No Joint swelling NEURO: Unable to assess SKIN: No Rash PSYCH; flat affect Vitals/I&O's: Vital Signs Temp Pulse Resp BP Pulse Ox 97.9 F 81 15 123/58 H 100 07/26/18 02:30 07/26/18 03:38 07/26/18 02:30 07/26/18 02:30 07/26/18 02:30 Oxygen Flow Rate (L/min) 4 Oxygen Delivery Method Nasal Cannula Weight: 148 kg Body Mass Index (BMI) 64.6 Intake and Output for Last 24 Hours 07/24/18 07/25/18 07/26/18 23:59 23:59 23:59 Intake Total 1000 / 1000 620 / 620 120 / 120 Output Total 1150 / 1150 1025 / 1025 600 / 600 Balance -150 / -150 -405 / -405 -480 / -480 Microbiology Past 72 Hours 07/23/18 08:54 Mucosa - Nasopharyngeal Respiratory Panel (PCR) - Final Laboratory Results 07/25/18 11:17: POC Glucose 145 H 07/25/18 16:51: POC Glucose 112 H 07/25/18 21:38: POC Glucose 124 H Current Medications Acetaminophen (Tylenol) 650 mg PO Q6H PRN PRN PRN Reason: PAIN Last Admin: 07/25/18 03:09 Dose: 650 mg Acetazolamide (Diamox) 125 mg PO TIDCM ANIA Last Admin: 07/25/18 17:51 Dose: 125 mg Albuterol Sulfate (Ventolin Aerosols) 2.5 mg INHALATION Q2H PRN PRN PRN Reason: SOB &/OR WHEEZING Chlorhexidine Gluconate () 1 each TOPICAL DAILY [facility] Last Admin: 07/25/18 08:53 Dose: 1 each Dextrose (D50w Syringe) 0 gm IV X1 PRN; Protocol PRN Reason: Hypoglycemia Diltiazem HCl (Cardizem Cd) 240 mg PO DAILY [facility] Last Admin: 07/25/18 08:52 Dose: 240 mg Enoxaparin Sodium (Lovenox) 40 mg SC DAILY@1000 [facility] Last Admin: 07/25/18 08:52 Dose: 40 mg Gabapentin (Neurontin) 300 mg PO QHS [facility] Last Admin: 07/25/18 21:37 Dose: 300 mg Glucagon () 1 mg IM .X1 PRN PRN Reason: Hypoglycemia Sodium Chloride () 250 mls @ 15 mls/hr IV .[id number] PRN PRN Reason: SALINE FLUSH Insulin Human Lispro (Humalog Kwikpen (Bkc)) 0 unit SQ ACHS [facility]; Protocol Last Admin: 07/25/18 21:46 Dose: Not Given Magnesium Hydroxide (Milk Of Magnesia) 30 ml PO DAILY PRN PRN PRN Reason: Constipation Metoprolol Succinate (Toprol Xl (Beta Vikki)) 25 mg PO DAILY [facility] Last Admin: 07/25/18 08:53 Dose: 25 mg Multivitamins/Minerals (Multivitamin With Minerals) 1 tablet PO DAILY@0800 [facility] Last Admin: 07/25/18 08:37 Dose: 1 tablet Ondansetron HCl (Zofran) 4 mg IV Q8H PRN PRN PRN Reason: NAUSEA Pantoprazole Sodium (Protonix) 40 mg PO DAILY [facility] Last Admin: 07/25/18 08:52 Dose: 40 mg Polysaccharide [facility] ([facility] Last Admin: 07/25/18 08:37 Dose: 150 mg Sodium Chloride () 5 - 15 ml IV UD PRN PRN Reason: SALINE FLUSH Last Admin: 07/23/18 11:28 Dose: 10 ml Medical Necessity - Tobacco Use Smoking Status: Former smoker Assessment/Plan All Active Problems Ulcer of left thigh (Resolved) Sepsis (Acute) HCAP (healthcare-associated pneumonia) (Acute) UTI (urinary tract infection) (Acute) Bacteremia due to Streptococcus (Acute) Drug overdose (Acute) Suicide attempt (Acute) History of necrotizing fasciitis (Acute) CAP (community acquired pneumonia) (Acute) Lower GI bleed (Resolved) Acute on chronic diastolic heart failure (Acute) Acute bronchitis with asthma with acute exacerbation (Resolved) Acute bronchitis (Acute) Atrial fibrillation with RVR (Acute) Otitis externa (Acute) Metabolic alkalosis (Acute) Blood in stool (Acute) Anemia (Acute) Abdominal pain (Resolved) Patient is a 53-year-old lady morbidly obese with BMI of 65 admitted following an attempted suicide attempt with tramadol and Flexeril with 30 and 29 pills respectively. Patient was apparently intubated in the ED as a result of worsening respiratory status. Subsequently admitted to the intensive care unit. 1. Acute hypoxic hypercapnic respiratory failure secondary to intentional drug overdose in an apparent suicidal attempt. Patient was intubated in the emergency department and subsequently admitted to the intensive care unit. Consultation was placed to Dr. Hampton with intensive care ICU management deferred; patient was weaned off the vent on the morning of 07/23/2018. Patient remains medically stable as of 07/24/2018 to be evaluated and transferred to an inpatient psychiatric facility. No facility has yet been found willing to accept patient as of 07/25/2018. 2. Chronic hypoxic respiratory failure secondary to obesity hypoventilation syndrome patient is on baseline oxygen 4 L at night 3. Severe depression with intentional drug overdose in an apparent suicidal attempt, tramadol and Flexeril. She threatened to leave AMA once she was weaned off the vent. She was therefore pink slipped and consultation placed to crisis. Patient remains medically stable as of 07/24/2018 to be evaluated and transferred to an inpatient psychiatric facility. The suggestion from crisis center is for have patient transferred to the medical service and a tertiary care facility however patient does not have any medical indication for transfer to an acute facility. Plan is for crisis to escalate patient's case to the state level to secure an inpatient psychiatric facility 4. Chronic diastolic congestive heart failure with known EF of 65% 5. Anemia secondary to anemia of chronic disorder: Monitoring H&H with plans to transfuse if hemoglobin falls below 7 or patient becomes symptomatic 6. Diabetes mellitus type 2 continued with home regimen in addition to Accu-Cheks before meals and at bedtime with sliding scale coverage 7. Mild intermittent asthma 8. Obstructive sleep apnea 9. Nonobstructing left renal calculus 10. Degenerative joint disease 11. Fatty liver do suspect nonalcoholic fatty liver disease from patient's morbid obesity as well as diabetes mellitus type 2 12. Chronic bilateral lower extremity lymphedema from venous insufficiency 13. Onychomycosis 14. Morbid obesity with BMI of 76 15. DVT prophylaxis: Lovenox Code Visit Inpatient E&M: 27645 Subs Hosp L2
[2018-07-26] MEDS: Iron Polysaccharide Complex 150 MG CAPSULE PO (07:47)
[2018-07-26] MEDS: AcetaZOLAMIDE 250 MG Tablet 125 MG PO ×3 (07:47→16:41)
[2018-07-26] MEDS: dilTIAZem CD 240 MG Capsule PO (07:48)
[2018-07-26] MEDS: Multivitamins,Ther W-Minerals Tablet 1 TABLET PO (07:48)
[2018-07-26] MEDS: Enoxaparin 40 MG/0.4 ML Syringe SC (07:49)
[2018-07-26] MEDS: Pantoprazole Sodium 40 MG Tablet PO (07:50)
[2018-07-26] MEDS: Metoprolol(XL)Succ 25 MG Tablet PO (07:50)
[2018-07-26 07:55] LABS: Hematocrit 27.3 % (37-47); Hemoglobin 7.5 g/dl (12.0-15.0); Mean Corp Hgb Conc 27.5 g/gl (32-36); Mean Corpuscular Hgb 25.2 pg (27.0-32.0); Mean Corpuscular Volume 91.6 fL (81-99); Mean Platelet Vol. 8.9 fl (6.2-12.0); Platelet Count 201 K/mm3 (150-450); RBC Distribution Width CV 18.2 % (11.6-14.6); RBC Distribution Width SD 61.3 fl (35.1-43.9); Red Blood Count 2.98 M/mm3 (4.2-5.4); White Blood Count 6.8 K/mm3 (4.4-11.0)
[2018-07-26 07:59] LABS: Anion Gap 4 (5-15); BUN 9 mg/dL (7-18); BUN/Creat Ratio 13.6 RATIO (10-20); Calcium,Total 8.1 mg/dL (8.5-10.1); Chloride 105 mmol/L (98-107); Creatinine, Serum 0.66 mg/dL (0.55-1.02); EST Glomerular Filtration Rate 100 mL/min (>60); Est Glom Filt Rate - Afr Amer 120 mL/min (>60); Estimated Creatinine Clearance 70.81 ml/min; Glucose 114 mg/dL (74-106); Magnesium 2.2 mg/dL (1.6-2.6); Potassium 3.7 mmol/L (3.5-5.1); Sodium Level 139 mmol/L (136-145)
[2018-07-26 08:01] LABS: Scan Indicated on CBC? Y/N NO
[2018-07-26] MEDS: CHLORHEXIDINE GLUC 2% CLOTH 1 EACH TOWELETTE TOPICAL (11:42)
[2018-07-26 11:51] LABS: Bedside Glucose 151 mg/dL (70-110)
[2018-07-26 16:22] LABS: Bedside Glucose 150 mg/dL (70-110)
--- NOTE | 2018-07-26 19:46 | NURSING ---
Pt. requested O2 to be increased to 4L. Sats were high 90's on 3L, but pt. states that she normally wears 4L at home.
[2018-07-26] MEDS: Gabapentin 300 MG Capsule PO (21:37)
[2018-07-26 21:41] LABS: Bedside Glucose 122 mg/dL (70-110)
[2018-07-27] VITALS (14 sets, daily range): BP systolic 106–129; BP diastolic 55–69; PULSE 69–79; RESP 16–20; TEMP 36.1–36.7; O2SAT 92–99
[2018-07-27 06:12] LABS: Hematocrit 26.8 % (37-47); Hemoglobin 7.4 g/dl (12.0-15.0); Mean Corp Hgb Conc 27.6 g/gl (32-36); Mean Corpuscular Hgb 26.2 pg (27.0-32.0); Mean Platelet Vol. 8.9 fl (6.2-12.0); Platelet Count 235 K/mm3 (150-450); RBC Distribution Width CV 17.6 % (11.6-14.6); RBC Distribution Width SD 58.4 fl (35.1-43.9); Red Blood Count 2.82 M/mm3 (4.2-5.4); White Blood Count 6.7 K/mm3 (4.4-11.0)
[2018-07-27 06:15] LABS: Anion Gap 6 (5-15); BUN 8 mg/dL (7-18); BUN/Creat Ratio 12.3 RATIO (10-20); Calcium,Total 8.2 mg/dL (8.5-10.1); Chloride 106 mmol/L (98-107); Creatinine, Serum 0.65 mg/dL (0.55-1.02); EST Glomerular Filtration Rate 101 mL/min (>60); Est Glom Filt Rate - Afr Amer 123 mL/min (>60); Glucose 119 mg/dL (74-106); Magnesium 2.4 mg/dL (1.6-2.6); Potassium 3.7 mmol/L (3.5-5.1); Sodium Level 142 mmol/L (136-145)
[2018-07-27 06:51] LABS: Bedside Glucose 112 mg/dL (70-110)
[2018-07-27 07:05] LABS: Scan Indicated on CBC? Y/N NO
[2018-07-27] MEDS: AcetaZOLAMIDE 250 MG Tablet 125 MG PO ×2 (08:12→18:02)
[2018-07-27] MEDS: Multivitamins,Ther W-Minerals Tablet 1 TABLET PO (08:13)
[2018-07-27] MEDS: Iron Polysaccharide Complex 150 MG CAPSULE PO (08:13)
[2018-07-27] MEDS: Pantoprazole Sodium 40 MG Tablet PO (08:14)
[2018-07-27] MEDS: Metoprolol(XL)Succ 25 MG Tablet PO (08:14)
[2018-07-27] MEDS: dilTIAZem CD 240 MG Capsule PO (08:14)
[2018-07-27] MEDS: Enoxaparin 40 MG/0.4 ML Syringe SC (08:15)
[2018-07-27] MEDS: CHLORHEXIDINE GLUC 2% CLOTH 1 EACH TOWELETTE TOPICAL (08:16)
[2018-07-27 12:16] LABS: Bedside Glucose 153 mg/dL (70-110)
--- NOTE | 2018-07-27 14:11 | CHAPLAIN ---
Type of Pastoral Visit ___ Initial Visit _x__ Follow-up Visit ___ On-call Visit ___ General Patient Visit ___ Spiritual Assessment ___ Family Conference ___ Bereavement ___ Rapid Response ___ Code Blue ___ Other (describe below) Pastoral Care Referral From _x__ Patient ___ Family _x__ Nurse ___ Physician ___ Director Talent ___ Employment Recruiter ___ Other (describe below) Sacrament/Intervention _x__ Active listening ___ Anointing ___ Protestant ___ Bereavement ___ Communion ___ Shiela exploration ___ _x__ Life review _x__ Prayer ___ Reconciliation ___ Sacrament of Sick _x__ Supportive presence ___ Wedding ___ Other (describe below) Pastoral Comments
--- NOTE | 2018-07-27 14:40 | CASEMGMT ---
Social Work: TC to Basilia Louise crisis supervisor cabinetmaker at the [facility] to obtain update regarding psychiatric placement for patient. Basilia states that crisis has been unable to find a psychiatric hospital that is willing to accept patient due to patient's medical issues and oxygen use. Basilia states that call was made to Malini Walter at the [facility] and [facility]. Per Basilia, Malini will be contacting the [facility] Mental Health Board tomorrow (both local and state level boards are closed today due to Presidents Day) for additional suggestions on placement options for patient. Basilia states that facilities are voicing inability to care for patient's oxygen needs. This SW reinforcing to Basilia that per physician, patient is medically stable and can be discharged to a psychiatric hospital at any time. Basilia once again states that multiple facilities have been contacted and none of them will accept patient due to oxygen needs. Basilia to follow up on patient status once more information has been obtained from Malini at [facility]. SW to assist as needed with patient placement. HOLLIE Smith
--- NOTE | 2018-07-27 15:29 | PN_ITS ---
Patient Problems: Active and Suspected Problems Drug overdose (Acute) Suicide attempt (Acute) Subjective: Patient was seen and examined today, she voices no complaints, she is currently on nasal cannula O2, we are awaiting approval for her to be transferred to a psychiatric facility for inpatient care. - Physical Exam General: Alert, Oriented x3, Cooperative, No apparent distress, Well developed, Well nourished HEENT: Atraumatic, PERRLA, EOMI, Normocephalic Neck: Supple, No JVD, Trachea Midline, Thyroid Normal Size and Texture Lungs: Clear to auscultation, Normal air movement, No rhonchi, No wheeze, No rales Cardiovascular: Regular rate, Regular Rhythm, Normal S1, Normal S2, No murmurs, No Ectopic Activity Abdomen: Bowel Sounds Present, Soft, Non Tender, Non-Distended, Obese, No hernias noted Extremities: Capillary Refill Less than 3 Seconds, Edema - Chronic lymphedema changes are noted over both lower legs Skin: No rashes, No breakdown Musculoskeletal: No Tenderness to Palpation of Joints or Extremities Neurological: Cranial nerves II-XII grossly intact, Neuro grossly intact, Sensory exam intact to light touch and pain, Coordination normal Psych/Mental Status: Normal Affect, Appropriate, Alert and oriented to time, place, person, mood and affect Vital Signs Temp Pulse Resp BP Pulse Ox 98.7 F 77 18 129/69 H 97 07/27/18 10:00 07/27/18 12:00 07/27/18 10:00 07/27/18 10:00 07/27/18 12:00 Oxygen Flow Rate (L/min) 4 Oxygen Delivery Method Nasal Cannula Weight: 147.5 kg Body Mass Index (BMI) 64.6 Intake and Output for Last 24 Hours 07/25/18 07/26/18 07/27/18 23:59 23:59 23:59 Intake Total 620 / 620 780 / 780 300 / 300 Output Total 1025 / 1025 1325 / 1325 Balance -405 / -405 -545 / -545 300 / 300 Laboratory Tests Past 24 Hrs 07/27/18 07/27/18 05:35 05:35 WBC 6.7 RBC 2.82 L Hgb 7.4 L Hct 26.8 L MCV 95.0 MCH 26.2 L MCHC 27.6 L RDW 17.6 H RDW Differential 58.4 H Plt Count 235 MPV 8.9 Sodium 142 Potassium 3.7 Chloride 106 Carbon Dioxide 30.0 Anion Gap 6 BUN 8 Creatinine 0.65 Estim Creat Clear Calc 71.90 Est GFR (MDRD) Af Amer 123 Est GFR (MDRD) Non-Af 101 BUN/Creatinine Ratio 12.3 Glucose 119 H Calcium 8.2 L Magnesium 2.4 POC Glucose 07/27/18 07/27/18 07/26/18 12:10 06:46 21:35 POC Glucose 153 H 112 H 122 H 07/26/18 16:18 POC Glucose 150 H Medical Necessity - Tobacco Use Smoking Status: Former smoker Assessment/Plan All Active Problems Ulcer of left thigh (Resolved) Sepsis (Acute) HCAP (healthcare-associated pneumonia) (Acute) UTI (urinary tract infection) (Acute) Bacteremia due to Streptococcus (Acute) Drug overdose (Acute) Suicide attempt (Acute) History of necrotizing fasciitis (Acute) CAP (community acquired pneumonia) (Acute) Lower GI bleed (Resolved) Acute on chronic diastolic heart failure (Acute) Acute bronchitis with asthma with acute exacerbation (Resolved) Acute bronchitis (Acute) Atrial fibrillation with RVR (Acute) Otitis externa (Acute) Metabolic alkalosis (Acute) Blood in stool (Acute) Anemia (Acute) Abdominal pain (Resolved) #1 acute drug overdose-resolved, we are awaiting placement in a psychiatric fa cility #2 suicide attempt by drug overdose-again we are awaiting placement in psychiatric facility #3 acute hypoxic hypercapnic respiratory failure secondary to intentional drug overdose-resolved at this time, patient is on her baseline home O2 #4 chronic hypoxic respiratory failure #5 type 2 diabetes #6 obstructive sleep apnea #7 chronic diastolic congestive heart failure #8 chronic anemia secondary to iron deficiency-serum iron level was ordered #9 chronic lymphedema of the legs #10 morbid obesity #11 chronic depression #12 fatty liver Code Visit Inpatient E&M: 60069 Subs Hosp L2
--- NOTE | 2018-07-27 16:00 | CASEMGMT ---
Social Work: Met with patient in room to update on status of mental health placement. Explained to patient that crisis is having a difficult time finding placement due to physical co morbidities and oxygen use. Patient verbalizing understanding. Patient appears to have a bright affect this day as evidenced by interacting with this SW while maintaining eye contact, smiling and laughing at times through out conversation. Patient states I am feeling much better than last week. Patient admits to feeling like a burden to family, specifically , and that this is why she ingested the medications. Patient is currently denying any suicidal ideations, intent or plans. SW to continue to follow to assist as needed with discharge planning and emotional support. HOLLIE Smith
[2018-07-27 16:06] LABS: Iron 28 ug/dL (50-170); Iron Binding Capacity,Total 192 ug/dL (250-450); PERCENT IRON SATURATION 14.6 % (15.0-55.0)
[2018-07-27 17:12] LABS: Bedside Glucose 108 mg/dL (70-110)
[2018-07-27] MEDS: Gabapentin 300 MG Capsule PO (22:04)
[2018-07-27] MEDS: Acetaminophen 325 MG Tablet 650 MG PO (22:04)
[2018-07-27 22:12] LABS: Bedside Glucose 159 mg/dL (70-110)
[2018-07-28] VITALS (8 sets, daily range): BP systolic 103–138; BP diastolic 68–78; PULSE 68–74; RESP 18–20; TEMP 36.1–36.9; O2SAT 96–99
[2018-07-28] MEDS: Indomethacin 25 MG Capsule 50 MG PO ×4 (06:03→15:58)
[2018-07-28 07:06] LABS: Bedside Glucose 111 mg/dL (70-110)
[2018-07-28 07:18] LABS: Hematocrit 27.7 % (37-47); Hemoglobin 7.4 g/dl (12.0-15.0); Mean Corp Hgb Conc 26.7 g/gl (32-36); Mean Corpuscular Hgb 25.7 pg (27.0-32.0); Mean Corpuscular Volume 96.2 fL (81-99); Mean Platelet Vol. 8.5 fl (6.2-12.0); Platelet Count 228 K/mm3 (150-450); RBC Distribution Width CV 17.6 % (11.6-14.6); RBC Distribution Width SD 58.7 fl (35.1-43.9); Red Blood Count 2.88 M/mm3 (4.2-5.4); White Blood Count 5.3 K/mm3 (4.4-11.0)
[2018-07-28 07:20] LABS: Scan Indicated on CBC? Y/N NO
[2018-07-28 07:36] LABS: Anion Gap 3 (5-15); BUN 9 mg/dL (7-18); BUN/Creat Ratio 13.3 RATIO (10-20); Calcium,Total 7.8 mg/dL (8.5-10.1); Chloride 105 mmol/L (98-107); Creatinine, Serum 0.68 mg/dL (0.55-1.02); EST Glomerular Filtration Rate 96 mL/min (>60); Est Glom Filt Rate - Afr Amer 117 mL/min (>60); Estimated Creatinine Clearance 68.72 ml/min; Glucose 118 mg/dL (74-106); Sodium Level 140 mmol/L (136-145)
[2018-07-28] MEDS: Iron Polysaccharide Complex 150 MG CAPSULE PO (09:22)
[2018-07-28] MEDS: AcetaZOLAMIDE 250 MG Tablet 125 MG PO ×3 (09:23→15:56)
[2018-07-28] MEDS: Multivitamins,Ther W-Minerals Tablet 1 TABLET PO (09:23)
[2018-07-28] MEDS: Pantoprazole Sodium 40 MG Tablet PO (09:24)
[2018-07-28] MEDS: dilTIAZem CD 240 MG Capsule PO (09:24)
[2018-07-28] MEDS: Metoprolol(XL)Succ 25 MG Tablet PO (09:24)
--- NOTE | 2018-07-28 09:53 | NURSING ---
Patient was able to sit self up to edge of bed and maintain balance with minimal assist x1. Stood at bedside with walker and assist x2. Transfers to bedside commode and chair with assist x2 and walker. Tolerated well, no complications.
--- NOTE | 2018-07-28 10:07 | CASEMGMT ---
Addendum entered by Danelle Macias 07/28/18 11:03: Basilia from [facility] had mentioned pt was needing C-Pap. SW clarified w/RN and pt herself. Pt is not on C-Pap at this time here at the hospital. Pt states that she uses O2 at night at home, 4LPM, and during the day 2LPM. As per RN, pt does need the 2LPM continuous during the day at this time. SW called [facility] to let her know this information. Basilia states [address] [place] [address] can manage the O2, they are more concerned about the medical issues listed as acute. SW explained that these issues are resolving well enough that pt can leave the hospital and no longer needs an acute care setting. SW explained if the physician at [address] [place] [address] is questioning this we can see if our physician here would be willing to speak directly to the doctor at [address] [place] [address]. Basilia is to let this SW know. HOLLIE Browne, CASH POSTING REPRESENTATIVE Original Note: Addendum entered by Danelle Macias 07/28/18 10:29: Pt's sister Jess had called in asking for an update([phone]). SW spoke w/pt in room, explained that Basilia from [facility] is working on another placement, will let her know as soon as this SW knows, if there are any updates. Pt states understanding. SW also let pt know her sister Jess called in asking what is going on. Pt states she will call her sister back. SW will continue to follow. HOLLIE Browne, CASH POSTING REPRESENTATIVE Original Note: SW spoke to Basilia from [facility]. She states she is working with [facility] this morning, spoke w/pt's RN this morning for updates. KHUSHBOO will continue to follow, let Basilia know that SW available to assist as needed with placement for this pt. HOLLIE Browne, CASH POSTING REPRESENTATIVE
[2018-07-28] MEDS: Enoxaparin 40 MG/0.4 ML Syringe SC (11:23)
[2018-07-28 11:32] LABS: Bedside Glucose 166 mg/dL (70-110)
[2018-07-28] MEDS: Insulin Lispro 100 UNIT/ML INSULN.PEN SQ (13:30)
--- NOTE | 2018-07-28 14:01 | CASEMGMT ---
Pt has been accepted at [facility], as per ZHENG Noriega. SW let pt know, she is calling her to let him know where she is going. Pt to [facility] today. HOLLIE Browne, PROCESS DESIGN ENGINEER
--- NOTE | 2018-07-28 15:28 | NURSING ---
[facility]
[2018-07-28] MEDS: Acetaminophen 325 MG Tablet 650 MG PO (15:45)
--- NOTE | 2018-07-28 17:00 | NURSING ---
to [facility] per [facility] ambulance
--- NOTE | 2018-08-02 09:19 | DS.PCM_ITS ---
Discharge Date and Diagnosis Date of Admission: 07/21/18 Date of Discharge: 07/28/18 - Primary Discharge Diagnosis #1 acute drug overdose-tramadol and Flexeril #2 suicide attempt by drug overdose #3 acute hypoxic hypercapnic respiratory failure secondary to intentional drug overdose #4 chronic hypoxic respiratory failure #5 type 2 diabetes #6 obstructive sleep apnea #7 chronic diastolic congestive heart failure #8 chronic anemia secondary to iron deficiency- #9 chronic lymphedema of the legs #10 morbid obesity #11 chronic depression #12 fatty liver - Secondary Discharge Diagnosis Chronic Problems Yeast dermatitis (Chronic) PAF (paroxysmal atrial fibrillation) (Chronic) acute on chronic blood loss anemia (Chronic) Acute and chronic respiratory failure with hypoxia (Chronic) Shortness of breath (Chronic) Acute on chronic diastolic heart failure (Chronic) Morbid obesity (Chronic) Anemia (Chronic) GERD (gastroesophageal reflux disease) (Chronic) Irritable bowel syndrome (Chronic) Overactive bladder (Chronic) Wide-complex tachycardia (Chronic) Chronic diastolic CHF (congestive heart failure) (Chronic) Type 2 diabetes mellitus (Chronic) HgbA1c 06/2016 6.5%. 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) Lymphedema (Chronic) Venous insufficiency (chronic) (peripheral) (Chronic) Hospital Course and Treatment Consultations 07/23/18 07:02 Consult: Mental Health/Crisis Routine Reason for consult?: Suicide Attempt/Intentional Overdose Date Notified:: 07/23/18 Time notified:: 07:32 Operations: None Procedures: None Summary of Care Provided: The patient is a 53 year old F who was seen in the emergency room at [facility] after taking an excessive amount of tramadol and Flexeril in a suicide attempt. Patient suffers from chronic depression. Patient was intubated due to decreased level of consciousness in the emergency room, labs showed a normal white blood cell count, chemistry panel was remarkable for a BUN of 23, the remainder of her labs were unremarkable also. Patient was transferred to ICU, she was seen by critical care, and was ultimately extubated in the ICU without incident. Patient was seen by crisis intervention, arrang ements were made for transfer to an inpatient psychiatric facility, patient was reluctant to go there and was pink slipped. Patient was noted to have an anemia, iron studies obtained in the hospital showed her to be iron deficient. On 07/28/18, patient was seen and examined and felt to be in stable condition for transfer to an inpatient psychiatric facility: On examination she appeared in good health and spirits. Vital signs as documented. Skin warm and dry and without overt rashes. Neck without JVD. Lungs clear. Heart exam notable for regular rhythm, normal sounds and absence of murmurs, rubs or gallops. Abdomen unremarkable and without evidence of organomegaly, masses, or abdominal aortic enlargement. Extremities nonedematous. Neuro: Cranial nerves II through XII are grossly intact, no focal motor deficits were noted, sensation to light touch and pinprick is intact. Psych: Patient is alert and oriented x3, she does not appear anxious or depressed On 07/28/18, patient was seen and examined and transferred to an inpatient psychiatric facility in stable condition - Physical Exam Vital Signs Temp Pulse Resp BP Pulse Ox 98.5 F 71 18 126/71 H 96 07/28/18 16:30 07/28/18 16:30 07/28/18 16:30 07/28/18 16:30 07/28/18 16:30 Oxygen Flow Rate (L/min) 2 Oxygen Delivery Method Nasal Cannula Weight: 147.3 kg Body Mass Index (BMI) 64.6 Home Medications: Medications to take at Discharge Albuterol Sulfate [Ventolin Hfa] 2 puff INHALATION Q4H PRN PRN 01/08/17 Pantoprazole Sodium [Protonix] 40 mg PO DAILY 02/13/17 Menthol/Lanolin/Calamine/Znox [Calmoseptine Ointment] 1 applic TOPICAL TID tube 10/21/17 Nystatin Powder [Mycostatin Powder] 1 applic TOPICAL 0600,2200 #1 bottle 10/21/17 Cyclobenzaprine [Flexeril] 10 mg PO TID PRN PRN #90 tab 01/12/18 Metoprolol(XL)Succ [Toprol Xl (Beta Vikki)] 25 mg PO DAILY tablet 01/12/18 Iron Poly/Vit C [Niferex-150] 150 mg PO DAILYCM #30 capsule 06/26/18 Acetaminophen 650 mg PO Q6H PRN PRN 07/21/18 Acetaminophen [Tylenol] 1,000 mg PO Q8H PRN 07/21/18 Acetazolamide 125 mg PO TID 07/21/18 Cephalexin [Keflex] 500 mg PO Q6H PRN PRN 07/21/18 Diltiazem HCl [Diltiazem 24Hr ER] 240 mg PO DAILY 07/21/18 Furosemide [Lasix] 40 mg PO BID 07/21/18 Gabapentin [Neurontin] 300 mg PO QHS 07/21/18 Multivitamin with Minerals [Multiple Vitamin] 1 tab PO DAILY 07/21/18 traMADol [Ultram (G)] 50 mg PO TID PRN PRN 07/21/18 Primary Care Physician: Merrick Mace MD [Primary Care Provider] - Disposition: Psych Hospital or Unit Minutes spent on discharge:: 33 Patient Condition:: Stable Medical Necessity - Tobacco Use Smoking Status: Former smoker Meaningful Use Info Meaningful Use Diagnoses (Choose all that apply): None applicable Code Visit Inpatient E&M: 88715 Disch Hosp
== END 2018-07-28 17:00 | DRG 917 ==
LOC: ED 15:35 → ICU 16:44
PROVIDERS: Internal Medicine; Internal Medicine Critical Care Medicine; Admitting Provider Internal Medicine; Emergency Provider Emergency Medicine; Family Provider Family Medicine; PCP Family Medicine; Referring Provider Internal Medicine; Visit Provider Internal Medicine
DX: T40.4X2A Poisoning by other synthetic narcotics, intentional self-harm, initial encounter (principal); J96.22 Acute and chronic respiratory failure with hypercapnia; J96.21 Acute and chronic respiratory failure with hypoxia; G92 Toxic encephalopathy; Z68.44 Body mass index [BMI] 60.0-69.9, adult; I50.32 Chronic diastolic (congestive) heart failure; T48.1X2A Poisoning by skeletal muscle relaxants [neuromuscular blocking agents], intentional self-harm, initial encounter; Z99.81 Dependence on supplemental oxygen; E11.42 Type 2 diabetes mellitus with diabetic polyneuropathy; E66.01 Morbid (severe) obesity due to excess calories; G47.33 Obstructive sleep apnea (adult) (pediatric); E78.5 Hyperlipidemia, unspecified; R40.2412 Glasgow coma scale score 13-15, at arrival to emergency department; I11.0 Hypertensive heart disease with heart failure; F32.9 Major depressive disorder, single episode, unspecified; D50.9 Iron deficiency anemia, unspecified; J45.20 Mild intermittent asthma, uncomplicated; B35.1 Tinea unguium; K76.0 Fatty (change of) liver, not elsewhere classified; M19.90 Unspecified osteoarthritis, unspecified site; I87.2 Venous insufficiency (chronic) (peripheral); N20.0 Calculus of kidney; Z87.891 Personal history of nicotine dependence; I89.0 Lymphedema, not elsewhere classified; K21.9 Gastro-esophageal reflux disease without esophagitis; N32.81 Overactive bladder; K58.9 Irritable bowel syndrome, unspecified; J45.909 Unspecified asthma, uncomplicated; I45.10 Unspecified right bundle-branch block; I48.0 Paroxysmal atrial fibrillation; M48.00 Spinal stenosis, site unspecified; R00.0 Tachycardia, unspecified
CPT/HCPCS: 31500; 31720; 36600; 51702; 71045; 80048; 80053; 80076; 80307; 80320; 80329; 81001; 82803; 82962; 83540; 83550; 83605; 83735; 84100; 84484; 85025; 85027; 85610; 85730; 87633; 93005; 94002; 94003; 94660; 97110; 97162; 97166; 97530; 97802; 99251; 99285; J7030; A4216; G0463; G0480; J3490

== ENCOUNTER 2018-12-21 22:08 | Emergency (ER) | payer MEDICARE, SELFPAY ==
[2018-07-21 17:34] VITALS: BMI 64.6
[2018-12-21 22:09] VITALS: BP 113/50; PULSE 71; RESP 18; TEMP 36.6; O2SAT 94; BMI 77.4
[2018-12-21 22:12] VITALS: BP 117/60; PULSE 72; RESP 20; O2SAT 96
--- NOTE | 2018-12-21 22:14 | ED.RN ---
RN CALLED FOR EKG, PULLED OLD EKGS FOR
[2018-12-21 22:15] VITALS: O2SAT 93
--- NOTE | 2018-12-21 23:01 | NURSING ---
EMS called with the pt report and made us aware that the pt's house has a hx of recent bed bugs. when the pt was brought in, the pt was taken into the decontamination room and washed up. 2 RN's examined the pt head-to-toe to look for any live/ bed bugs. hair was checked as well. one bed bug was found in the pit of the knee. when arrived he was taken into the decontamination room as well. his clothes were removed and he was washed and examined as well. pt's clothes were sealed and double bagged. pt was put in paper scrubs and escorted straight back to the pt's room.
--- NOTE | 2018-12-21 23:02 | RAD_ITS ---
HISTORY: SHORTNESS OF BREATH EXAM: XR Chest 1 View COMPARISON: July 23, 2018 FINDINGS: LINES/DEVICES: None. LUNGS: There are chronic interstitial changes. No pneumothorax. No consolidation or effusion. MEDIASTINUM AND CARDIOVASCULAR STRUCTURES: Cardiac silhouette is enlarged. Central airways and mediastinal contour are unremarkable. Athersclerotic plaque within the aortic arch. BONES AND SOFT TISSUES: Thoracic spondylosis. RAD/Chest 1 View (Portable) IMPRESSION: Chronic interestitial changes. No radiographic evidence of acute cardiopulmonary disease. at 2335 Reported and signed by: Kilo León MD Electronically Signed: Kilo León MD at 23:34 EDT Tel , Service support ,
--- NOTE | 2018-12-21 23:03 | EKG12_ITS ---
Test Reason : SOB Blood Pressure : / mmHG Vent. Rate : 071 BPM Atrial Rate : 071 BPM P-R Int : 174 ms QRS Dur : 100 ms QT Int : 464 ms P-R-T Axes : 067 092 076 degrees QTc Int : 504 ms Sinus rhythm with sinus arrhythmia with occasional Premature ventricular complexes Rightward axis Incomplete right bundle branch block Prolonged QT Abnormal ECG Confirmed by JOHANNA RUBI, PEDRO LUIS ([id number]), metropolitan editor SENTHIL CHILDRESS ([id number]) on 12/23/2018 11:40:42 AM Referred By: EARL Confirmed By:PEDRO LUIS SPENCER MD
--- NOTE | 2018-12-21 23:03 | ED.DCSUM_ITS ---
- ER Visit Summary Date of Service: 12/21/18 Chief Complaint: Shortness of breath History of Present Illness: The patient is a 53 F who presents with shortness of breath. Patient states she is really noticed this over the last couple days however her states that she has seemed more short of breath for a couple of weeks. She also complains of chest tightness. She reports a cough occasionally productive of white or light green sputum. She denies fevers congestion rhinorrhea. She had some diarrhea. She denies any pain. She also notes that she has a history of a diabetic ulcer on her right foot which had healed but is now returning. She also complains of increased edema. She does have lymphedema. Physical Examination: Pulse ox 94% on 4 L, afebrile and vitals otherwise unremarkable No distress Moist mucous membranes Heart regular rate and rhythm Slightly tachypneic with bibasilar rales Abdomen soft nontender Severe bilateral lymphedema of the lower extremities slight erythema but not hot to the touch 2 cm ulceration on the bottom of the right foot which does not appear infected it is not draining it is not erythematous it is clean edges Test Results: EKG shows sinus rhythm at a rate of 71 with a PVC and complete right bundle branch prolonged QT, unchanged from prior. Labs notable for hemoglobin of 8.4 which is near baseline. Potassium 3.1, glucose 157. Troponin negative. BNP 183 which is actually improved from prior labs. Chest x-ray shows chronic changes, no acute disease. Emergency Department Course and Treatment: Work-up as above is essentially unremarkable. She does not appear to be in heart failure. There is no pneumonia. She does have a history of COPD. This is most likely related to COPD flare. We will treat with prednisone and doxycycline. She was referred to the wound clinic in regards to the ulcer on her foot. She understands to return for new or worsening symptoms. Patient understands to follow-up with her primary care physician as well. Patient discharged. Treatment Plan: [] Disposition: Discharge Impression: COPD exacerbation This note was generated with [employer] dictation software. It may contain incorrect words, spelling, and punctuation that were not noted in review of the chart prior to signing ED Disposition - Plan for ED Patient: Referrals: Merrick Mace MD [Primary Care Provider] -
[2018-12-21 23:22] LABS: Absolute Lymphocyte Count 0.89 X10^3/ul (0.83-4.51); Absolute Neutrophil Count 5.9 X10^3/uL (2.0-7.7); Basophil# 0.01 X10^3/uL; Basophil% 0.1 % (0-1); Eosinophil# 0.29 X10^3/uL; Eosinophils% 3.9 % (0-5); Hematocrit 31.1 % (37-47); Hemoglobin 8.4 g/dl (12.0-15.0); Lymphocyte # 0.89 X10^3/ul (4.0); Mean Corpuscular Hgb 24.6 pg (27.0-32.0); Mean Corpuscular Volume 91.2 fL (81-99); Mean Platelet Vol. 9.2 fl (6.2-12.0); Monocyte# 0.32 X10^3/uL; Monocyte% 4.3 % (0-10); Neutrophil # 5.91 X10^3/uL (2.7-7.7); Neutrophil % 79.6 % (47-70); Platelet Count 194 K/mm3 (150-450); RBC Distribution Width CV 18.4 % (11.6-14.6); RBC Distribution Width SD 61.5 fl (35.1-43.9); Red Blood Count 3.41 M/mm3 (4.2-5.4); White Blood Count 7.4 K/mm3 (4.4-11.0)
[2018-12-21 23:23] LABS: POSITIVE COUNT NO; POSITIVE DIFFERENTIAL NO; POSITIVE MORPHOLOGY NO
[2018-12-21 23:36] LABS: Anion Gap 2 (5-15); BUN 14 mg/dL (7-18); Calcium,Total 7.8 mg/dL (8.5-10.1); Chloride 101 mmol/L (98-107); EST Glomerular Filtration Rate 62 mL/min (>60); Est Glom Filt Rate - Afr Amer 74 mL/min (>60); Estimated Creatinine Clearance 46.73 ml/min; Glucose 157 mg/dL (74-106); Potassium 3.1 mmol/L (3.5-5.1); Sodium Level 144 mmol/L (136-145)
[2018-12-21 23:49] LABS: BNP,B-Type NATRIURETIC PEPTIDE 183.7 pg/mL (0-100)
[2018-12-21 23:57] VITALS: BP 117/60; PULSE 72; RESP 20; TEMP 36.7; O2SAT 96
[2018-12-22] VITALS (9 sets, daily range): BP systolic 120–135; BP diastolic 64–78; PULSE 71–85; RESP 16–21; TEMP 37.1; O2SAT 94–97
--- NOTE | 2018-12-22 00:04 | ED.DEP ---
ED Disposition - Plan for ED Patient: Instructions: Copd Flare Prescriptions: Doxycycline 100 mg PO BID #20 cap Prescription Printed predniSONE tablet 60 mg PO DAILY #15 tab Prescription Printed Referrals: Merrick Mace MD [Primary Care Provider] - Clinic,Wound [None] -
--- NOTE | 2018-12-22 00:30 | ED.RN ---
PATIENT REQUIRES A RIDE HOME VIA A WHEELCHAIR AMBULETTE AND THEY WERE NOT AVAILABLE OVER NIGHT. PATIENT HAS SLEPT OVERNIGHT UNTIL THE AMBULETTES WERE AVAILABLE.
[2018-12-22] MEDS: predniSONE 20 MG Tablet 60 MG PO ×2 (01:06→19:40)
[2018-12-22] MEDS: Doxycycline 100 MG CAPSULE PO ×2 (01:06→19:40)
--- NOTE | 2018-12-22 05:32 | NURSING ---
pt states that she has no steps or ramp inside her mobile home. office secretary calling for a ride.
--- NOTE | 2018-12-22 08:11 | ED.RN ---
called for multiple transports who are unable to come and pick pt up
--- NOTE | 2018-12-22 10:26 | CM.ED ---
Social Work Consult: Discharge Planning Informant: Dr. Villar Met with patient in room. This psychiatric social worker is familiar with patient. Patient reporting to continue to live with spouse in a home with a 1st floor set up. Patient reporting to have been walking a few steps with a walker to a bedside commode and then back to patient chair and that is patients main mobility. Patient reporting to have not left the home since 2018 due to patient being unable to get in and out of a vehicle. Patient reporting to now want to look into intermediate placement at a long term as patient is not able to make things work at home. Patient stating that patient son, who lives with patient works during the days and is unable to help. Patient spouse is also unable to assist with patient care due to patient spouse having poor health as well. Patient stating that first choice is [facility]. Patient stating to have [employer] M[employer] as main insurance and to also be pending Medicaid approval. Patient stating to have submitted Medicaid application 2-3 weeks ago and that patient spouse is currently working on gathering documents for completion of application. Mental Health: Patient stating to have a down mood and to be tired all the time. Patient stating to be taking an anti-depressant and that this helps some. Patient denies any suicidal thoughts. Telephone call to Randa ANDRADE. This psychiatric social worker making referral. Pending response at this time. Buster COSTA, ABELARDO
--- NOTE | 2018-12-22 11:13 | CM.ED ---
Social Work Telephone call to [facility], Mildred Lorenzo. Medicaid pending number is [id number]. Mildred reporting that two request have been sent out for supportive documentation. Mildred stating that it is noted that patient has followed up with application documentation in the past and it is about 50/50 on wether or not patient/patient family follows up on application. Telephone call to patient spouse, Ricco. Voicemail left. Buster COSTA, ABELARDO
--- NOTE | 2018-12-22 12:20 | CM.ED ---
Social [facility] Patient has been accepted under Medicaid pending. Notified patient, nursing staff and Dr. Villar. Buster King BONDING MACHINE TENDER, [employer]
--- NOTE | 2018-12-22 12:51 | CM.ED ---
Social Work Telephone call to Randa ANDRADE. This adoption social worker to complete PASRR/LOC. Telephone call to Yuki HEWITT. Yuki confirming that this adoption social worker is able to complete PASRR/LOC from ED. PASRR/LOC completed and faxed, pending response at this time. Buster COSTA, ABELARDO
--- NOTE | 2018-12-22 17:03 | CM.ED ---
Social Work Telephone call from [facility], Yuki. Yuki reporting to be unable to complete LOC for patient without a formal transfer form. This nephrology social worker communicating that patient is coming from an ED, as if patient was in the community and the emergency room doctors are communicating to not complete transfer forms for nursing homes. Yuki reporting to need the transfer form in order to process the LOC and will not process the document further at this time. Telephone call to Randa NUNES. This nephrology social worker communicating above information. Randa contacting operations administrator and will get back to this nephrology social worker. Buster King STRIP STAMP STRAIGHTENER, DRIP PUMPER
--- NOTE | 2018-12-22 17:39 | ED.RN ---
NURSE TO NURSE REPORT CALLED TO [facility], NO FURTHER QUESTIONS.
--- NOTE | 2018-12-22 17:43 | CM.ED ---
[facility] reporting to be able to complete the LOC if this long term care social worker would complete the PASRR through [facility]. This long term care social worker completing the PASRR and faxed results. Patient to discharge to [facility] on this day. Buster COSTA, ABELARDO
[2018-12-22] MEDS: dilTIAZem CD 240 MG Capsule PO (19:35)
[2018-12-22] MEDS: Gabapentin 300 MG Capsule PO (19:35)
[2018-12-22] MEDS: AcetaZOLAMIDE 250 MG Tablet 125 MG PO (19:36)
[2018-12-22] MEDS: Furosemide 20 MG Tablet PO (19:36)
[2018-12-22] MEDS: metFORMIN HCl 1,000 MG Tablet 1000 MG PO (20:03)
[2018-12-22] MEDS: Pantoprazole Sodium 40 MG Tablet PO (20:04)
--- NOTE | 2018-12-22 22:52 | ED.RN ---
PT TRANSFERRED TO [facility] WITH ASSISTANCE OF IRONER HAND AND [employer]W. NO ISSUES WITH TRANSFER. PT STATED I COMFORTABLE I CAN BE . PRIOR TO LOADING. Chani ALEJO RN [id number]
--- NOTE | 2018-12-23 00:19 | ED.RN ---
OPENED CHART TO PRINT REQUESTED INFORMATION FOR RECEIVING FACILITY
== END 2018-12-22 22:54 | disposition skilled nursing facility (03) ==
PROVIDERS: Emergency Provider Emergency Medicine; Family Provider Family Medicine; PCP Family Medicine
DX: J44.1 Chronic obstructive pulmonary disease with (acute) exacerbation (principal); R19.7 Diarrhea, unspecified; I89.0 Lymphedema, not elsewhere classified; E11.621 Type 2 diabetes mellitus with foot ulcer; L97.519 Non-pressure chronic ulcer of other part of right foot with unspecified severity; I49.3 Ventricular premature depolarization; I45.10 Unspecified right bundle-branch block; I11.0 Hypertensive heart disease with heart failure; I50.9 Heart failure, unspecified; K21.9 Gastro-esophageal reflux disease without esophagitis; G47.33 Obstructive sleep apnea (adult) (pediatric); Z79.899 Other long term (current) drug therapy; Z79.84 Long term (current) use of oral hypoglycemic drugs
CPT/HCPCS: 71045; 80048; 83880; 84484; 85025; 93005; 99285; J7030; A4216

== ENCOUNTER → 2019-10-29 | Outpatient (CLI) | payer MEDICARE, MEDICAID, SELFPAY | END | disposition home or self-care (01) | LOC: LABSPEC 12:59 | PROVIDERS: PCP Family Medicine; Referring Provider Nurse Practitioner Adult Health; Visit Provider Nurse Practitioner Adult Health | DX: J98.8 Other specified respiratory disorders (principal) | CPT/HCPCS: 87635; U0004 ==

== ENCOUNTER 2020-07-09 12:06 | Inpatient (IN) | payer MEDICARE, MEDICAID, SELFPAY ==
[2020-07-09] VITALS (25 sets, daily range): BP systolic 110–150; BP diastolic 46–92; PULSE 68–97; RESP 12–222; TEMP 36.3–37.1; O2SAT 89–100; BMI 74.2; BMI 74.3; BMI 74.7
--- NOTE | 2020-07-09 12:17 | EKG12_ITS ---
Test Reason : ALERED LOC Blood Pressure : / mmHG Vent. Rate : 075 BPM Atrial Rate : 075 BPM P-R Int : 198 ms QRS Dur : 106 ms QT Int : 472 ms P-R-T Axes : 061 095 069 degrees QTc Int : 527 ms Sinus rhythm with frequent and consecutive Premature ventricular complexes Rightward axis Incomplete right bundle branch block Prolonged QT Abnormal ECG Confirmed by SARAI RUBI, GRACE ([id number]), senior editor MINA WEINER ([id number]) on 07/10/2020 1:12:06 PM Referred By: GT Confirmed By:GRACE MOON MD
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
[2020-07-09 12:49] LABS: Bacteria 0 SEEN /hpf (None Seen); Mucous, Urine 0 SEEN /hpf (<or=2+); Red Blood Cells-Urine 0 SEEN /hpf (0-5); White Blood Cells 0 SEEN /hpf (0-5)
[2020-07-09 12:51] LABS: Color, Urine Yellow (Yellow); Glucose, Dipstick Normal (Normal); Ketone-Dipstick Negative (Negative); Leukocyte Esterase-Dipstick Negative /ul (Negative); Nitrite-Dipstick Negative (Negative); Occult Blood-Urine Negative /ul (Negative); Protein-Dipstick 30 mg/dl (Negative); Urine Bilirubin Dipstick Negative (Negative); Urine Clarity Clear (Clear); Urine Urobilinogen Normal (Normal)
[2020-07-09 12:57] LABS: Squamous Epithelial Cells - UA 0-5 SEEN /hpf (5-10)
--- NOTE | 2020-07-09 13:10 | RAD_ITS ---
STUDY: X-RAY CHEST REASON FOR EXAM: Female, 55 years old. PER ECF, PT HAVING DECREASED LOC AND LETHARGIC WITH HYPOXIA. WAS 78% ON NC. PLACED ON NRB 10L PULSE OX UP TO 98% AT ECF. PT DENIES SOB OR CP. TECHNIQUE: Single AP portable view of the chest. COMPARISON: December 21, 2018 chest x-ray FINDINGS: Since prior study there is been interval development of right upper lobe worsening right lower lobe pulmonary markings and subtle areas of increased interstitial markings in the left chest. There is no demonstrated pleural abnormality. There is mild cardiac enlargement. Normal mediastinum and negra. Normal visualized pulmonary arteries. Normal visualized aortic arch and descending thoracic aorta. There are diffuse degenerative changes of the visualized thoracic spine. Normal visualized ribs, clavicles, and shoulders. There is no demonstrated abnormality of the visualized soft tissue structures of the upper abdomen. RAD/Chest 1 View (Portable) IMPRESSION: Findings suspicious for multifocal pneumonia. Electronically Signed: Tabitha Bassett MD at 14:27 EST Tel , Service support ,
[2020-07-09 13:27] LABS: Absolute Lymphocyte Count 0.58 X10^3/uL (0.83-4.51); Absolute Neutrophil Count 7.4 X10^3/uL (2.0-7.7); Basophil# 0.06 X10^3/uL; Basophil% 0.7 % (0-1); Eosinophil# 0.16 X10^3/uL; Eosinophils% 1.8 % (0-5); Hematocrit 37.9 % (37-47); Hemoglobin 10.6 g/dL (12.0-15.0); Lymphocyte # 0.58 X10^3/ul (4.0); Lymphocyte % 6.4 % (19-41); Mean Corpuscular Volume 103.8 fL (81-99); Mean Platelet Vol. 9.8 fl (6.2-12.0); Monocyte% 5.5 % (0-10); NRBC Flagged by Analyzer 0.3 % (0-5); Neutrophil # 7.42 X10^3/uL (2.7-7.7); Neutrophil % 81.8 % (47-70); POSITIVE DIFFERENTIAL YES; Platelet Count 163 K/mm3 (150-450); RBC Distribution Width CV 15.4 % (11.6-14.6); RBC Distribution Width SD 58.4 fl (35.1-43.9); Red Blood Count 3.65 M/mm3 (4.2-5.4); White Blood Count 9.1 K/mm3 (4.4-11.0)
--- NOTE | 2020-07-09 13:31 | NURSING ---
BLUE AND GREEN NEEDS REDRAWN PER LAB
[2020-07-09 13:32] LABS: Differential Indicated SCAN CRITERIA MET
[2020-07-09 14:00] LABS: BNP,B-Type NATRIURETIC PEPTIDE 88.3 pg/mL (0-100); Hypochromasia 1+; Macrocytosis 1+; Platelet Estimate ADEQUATE (ADEQ)
[2020-07-09 14:06] LABS: D-Dimer Quantitative (DVT/PE) 0.42 FEU/ug/m (0.27-0.49)
[2020-07-09 14:12] LABS: Anion Gap 0 (5-15); BUN 33 mg/dL (7-18); Calcium,Total 8.4 mg/dL (8.5-10.1); Chloride 100 mmol/L (98-107); EST Glomerular Filtration Rate 61 mL/min (>60); Est Glom Filt Rate - Afr Amer 74 mL/min (>60); Estimated Creatinine Clearance 45.66 ml/min; Glucose 171 mg/dL (74-106); Potassium 4.4 mmol/L (3.5-5.1); Sodium Level 141 mmol/L (136-145)
--- NOTE | 2020-07-09 14:23 | NURSING ---
DR YOEDR FOR DR ELLIOTT
--- NOTE | 2020-07-09 15:01 | NURSING ---
ICU PARESH PNEUMONIA, RESP FAILURE
[2020-07-09] MEDS: Ceftriaxone 1 GM/50 ML BAG IV (15:14)
--- NOTE | 2020-07-09 15:22 | NURSING ---
ICU 3
--- NOTE | 2020-07-09 15:26 | CPS ---
critical values noted and given to doctor Racheal Juarez @14:55
[2020-07-09] MEDS: metroNIDAZOLE 500 MG/100 ML BAG 100 MG IV (15:50)
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
[2020-07-09 16:51] LABS: Bedside Glucose 154 mg/dL (70-110)
[2020-07-09 17:26] LABS: Allen Test Positive; Base Excess 16 mmol/L (-2 to +2); Bicarbonate 45.1 mmol/L (22-26); Blood Gas Specimen Type ART; FI02 50; Mode NCPAP; O2 Delivery Device BiPAP; PEEP 10; PO2 64 mmHG (75-100); RR 16; SITE R Radial; SO2 82 % (95-99); Total Carbon Dioxide 49 mmol/L; Vt 400; pCO2 126.2 mmHg (35-45); pH 7.16 (7.35-7.45)
--- NOTE | 2020-07-09 17:33 | CPS ---
CriticalABG results given mayuri Wen.
--- NOTE | 2020-07-09 17:51 | PCM.RX.CS ---
Consult Pharmacy has been consulted to manage selected antiobiotic: Vancomycin Type of Consult: New start Suspected Infection: Pneumonia Labs: Sodium 141 mmol/L (136-145) 07/09/20 13:45 Potassium 4.4 mmol/L (3.5-5.1) 07/09/20 13:45 Chloride 100 mmol/L (98-107) 07/09/20 13:45 Carbon Dioxide 41.0 mmol/L (21.0-32.0) H 07/09/20 13:45 Anion Gap 0 (5-15) L 07/09/20 13:45 BUN 33 mg/dL (7-18) H 07/09/20 13:45 Creatinine 1.00 mg/dL (0.55-1.02) 07/09/20 13:45 Est GFR (MDRD) Af Amer 74 mL/min (>60) 07/09/20 13:45 Est GFR (MDRD) Non-Af 61 mL/min (>60) 07/09/20 13:45 BUN/Creatinine Ratio 33.0 RATIO (10-20) H 07/09/20 13:45 Glucose 171 mg/dL (74-106) H 07/09/20 13:45 Microbiology: Microbiology 07/09/20 12:44 Mucosa - Nose SARS-CoV-2 Antigen (Rapid) - Final Weight used for dosin kg Estimated Creatinine Clearance: 96ml/min Goal Trough: 15-20 mcg/mL Pharmacy Plan for Drug Dosing: NEW START IV VANCOMYCIN Consulting Physician: ariana roper Indication: pneumonia Goal Trough: 15-20 SrCr: 1 CrCl: 96.67 (based on an adjusted body weight of 96kg) Comments: a 15mg/kg loading dose of 2000mg to be administered 07/09/20 at 1700 Vancomcyin Dose: per dosing protocol, 1250mg q8h to start 07/10/20 at 0100 Pending Level: 07/10/20 at 1630 Pharmacy Service will continue to monitor and adjust dosing as required. Follow-Up Labs: Trough Vancomycin - 07/10/20 at 1630
[2020-07-09 18:05] LABS: M R Staph aureus DNA By PCR Negative (Negative); Probe Check PASS; Specimen Processing Control PASS
[2020-07-09 18:16] LABS: TCA Internal Control -Neg LINE = VALID (- VALID); TCA Urine Drug Screen Negative (<1000 ng/mL)
[2020-07-09 20:41] LABS: Allen Test Positive; Base Excess 17 mmol/L (-2 to +2); Bicarbonate 44.1 mmol/L (22-26); Blood Gas Specimen Type ART; FI02 50; Mode avaps; O2 Delivery Device BiPAP; PEEP 10; PO2 73 mmHG (75-100); SITE L Radial; SO2 89 % (95-99); Total Carbon Dioxide 47 mmol/L; Vt 450; pH 7.23 (7.35-7.45)
--- NOTE | 2020-07-09 20:49 | CPS ---
critical ABG values called to DR [facility] [id number]
--- NOTE | 2020-07-09 21:39 | CPS ---
WOOD DOWEL MACHINE OPERATOR called hospitalist to ask if Min and Max pressures could be increased on AVAPS for decreased tidal volumes. Physician gave verbal order to increase Max to 26 and Min to 12. Tidal volumes were improved on these settings with better patient consciousness.
[2020-07-09 22:08] LABS: Amphetamine Urine VISTA NEGATIVE (<1000 ng/mL); Barbiturate Urine VISTA NEGATIVE (< 200 ng/mL); Benzodiazepine Urine VISTA NEGATIVE (< 200 ng/mL); Cocaine Urine VISTA NEGATIVE (< 300 ng/mL); Ecstacy Urine VISTA NEGATIVE (< 500 ng/mL); Methadone Urine VISTA NEGATIVE (< 300 ng/mL); PCP Urine VISTA NEGATIVE (< 25 ng/mL); THC Urine VISTA NEGATIVE (< 50 ng/mL); Vista UDS pH Range 5
[2020-07-09] MEDS: Atorvastatin Calcium 20 MG Tablet PO (22:26)
[2020-07-09] MEDS: Gabapentin 300 MG Capsule PO (22:26)
[2020-07-09 22:40] LABS: Bedside Glucose 135 mg/dL (70-110)
[2020-07-10] VITALS (33 sets, daily range): BP systolic 107–182; BP diastolic 45–135; PULSE 58–102; RESP 16–26; TEMP 36.4–37.1; O2SAT 92–100
[2020-07-10 03:39] LABS: Absolute Lymphocyte Count 0.45 X10^3/uL (0.83-4.51); Absolute Neutrophil Count 6.1 X10^3/uL (2.0-7.7); Basophil# 0.04 X10^3/uL; Basophil% 0.5 % (0-1); Eosinophils% 2.7 % (0-5); Hematocrit 33.6 % (37-47); Hemoglobin 9.5 g/dL (12.0-15.0); Lymphocyte # 0.45 X10^3/ul (4.0); Lymphocyte % 6.2 % (19-41); Mean Corp Hgb Conc 28.3 g/dL (32-36); Mean Corpuscular Hgb 28.6 pg (27.0-32.0); Mean Corpuscular Volume 101.2 fL (81-99); Mean Platelet Vol. 9.7 fl (6.2-12.0); Monocyte% 5.5 % (0-10); NRBC Flagged by Analyzer 0 % (0-5); Neutrophil # 6.05 X10^3/uL (2.7-7.7); POSITIVE DIFFERENTIAL YES; Platelet Count 146 K/mm3 (150-450); RBC Distribution Width CV 15.3 % (11.6-14.6); RBC Distribution Width SD 56.7 fl (35.1-43.9); Red Blood Count 3.32 M/mm3 (4.2-5.4); White Blood Count 7.3 K/mm3 (4.4-11.0)
[2020-07-10 03:40] LABS: Differential Indicated SCAN CRITERIA MET
[2020-07-10 04:03] LABS: ALB/GLOB Ratio 0.6 RATIO (0.9-2.4); AST(SGOT) 34 U/L (15-37); Alanine Aminotransfer ALT/SGPT 41 U/L (13-56); Albumin, Serum 2.6 g/dL (3.2-5.0); Alkaline Phosphatase 70 U/L (45-117); Anion Gap 1 (5-15); BUN 27 mg/dL (7-18); BUN/Creat Ratio 32.8 RATIO (10-20); Calcium,Total 8.3 mg/dL (8.5-10.1); Chloride 103 mmol/L (98-107); Creatinine, Serum 0.82 mg/dL (0.55-1.02); EST Glomerular Filtration Rate 77 mL/min (>60); Est Glom Filt Rate - Afr Amer 93 mL/min (>60); Estimated Creatinine Clearance 211.22 ml/min; Globulin 4.2 g/dL (2.2-4.2); Glucose 147 mg/dL (74-106); Magnesium 2.4 mg/dL (1.6-2.6); Phosphorus 1.8 mg/dL (2.5-4.9); Potassium 4.1 mmol/L (3.5-5.1); Protein, Total 6.8 g/dL (6.4-8.2); Sodium Level 143 mmol/L (136-145)
[2020-07-10 05:36] LABS: Allen Test Positive; Base Excess 16 mmol/L (-2 to +2); Blood Gas Specimen Type ART; FI02 50; O2 Delivery Device BiPAP; PO2 91 mmHG (75-100); RR 20; SITE L Radial; SO2 95 % (95-99); Total Carbon Dioxide 46 mmol/L; Vt 450; pCO2 98.1 mmHg (35-45); pH 7.25 (7.35-7.45)
--- NOTE | 2020-07-10 05:37 | CPS ---
Critical blood gas results read to via telephone. Settings on AVAPS at time of ABG are VT450 RR20 EPAP 10 MinP12 MaxP26. Physician gave verbal order to increase tidal volume set to 500-550. S IRON WORKER will make change to AVAPS.
--- NOTE | 2020-07-10 07:33 | PN_ITS ---
Patient Problems: Active and Suspected Problems Pneumonia (Acute) Respiratory failure (Acute) Reason for Visit: Follow-up on respiratory failure/pneumonia, chronic metabolic alkalosis Subjective: Patient was seen and examined. She remains on BiPAP. Appears confused. No other acute events overnight. CODE STATUS is a DNR CCA, no intubation Objective: Physical exam: General: Lethargic, Cooperative, No apparent distress, Well developed, Well nourished, Lethargic, morbidly obese HEENT: Atraumatic, PERRLA, EOMI, Normocephalic, EAC Clear Oral:Dry Mucosa Neck: Supple, No JVD Lungs: Diminished - Severe Cardiovascular: Regular rate, Regular Rhythm, Normal S1, Normal S2, No murmurs, No Ectopic Activity, No rub noted, No Gallop Abdomen: Bowel Sounds Present, Soft, Non Tender, Non-Distended, No Hepato- splenomegaly, Obese Extremities: No edema Skin: chronic dystrophic nails, tinea bilateral feet with long toenails Musculoskeletal: No Tenderness to Palpation of Joints or Extremities, No Muscle Wasting Lymphatic: No Cervical, Supraclavicular, or Inguinal Adenopathy Neurological: Cranial nerves II-XII grossly intact, grossly intact Psych/Mental Status: Flat Affect Vitals/I&O's: Vital Signs Temp Pulse Resp BP Pulse Ox 98.2 F 73 22 H 114/52 L 92 07/10/20 04:00 07/10/20 07:06 07/10/20 07:06 07/10/20 07:00 07/10/20 07:06 Oxygen Flow Rate (L/min) 10 Oxygen Delivery Method Bi-pap Weight: 172.6 kg Body Mass Index (BMI) 74.7 Intake and Output for Last 24 Hours 07/08/20 07/09/20 07/10/20 23:59 23:59 23:59 Intake Total 995 / 995 445 / 445 Output Total 400 / 400 1000 / 1000 Balance 595 / 595 -555 / -555 Microbiology Past 72 Hours 07/09/20 15:56 Mucosa - Nose Respiratory Panel (PCR) - Final 07/09/20 17:30 Urine, Clean Catch Legionella Antigen - Final 07/09/20 17:30 Urine, Clean Catch Streptococcus pneumoniae Antigen (M - Final 07/09/20 12:44 Mucosa - Nose SARS-CoV-2 Antigen (Rapid) - Final Laboratory Results 07/09/20 12:40: Urine Color Yellow, Urine Clarity Clear, Urine pH 6.0, Ur Specific [place] 1.020, Urine Protein 30 H, Urine Glucose (UA) Normal, Urine Ketones Negative, Urine Occult Blood Negative, Urine Nitrite Negative, Urine Bilirubin Negative, Urine Urobilinogen Normal, Ur Leukocyte Esterase Negative, Urine RBC 0 SEEN, Urine WBC 0 SEEN, Ur Squamous Epith Cells 0-5 SEEN, Urine Bacteria 0 SEEN, Urine Mucus 0 SEEN 07/09/20 13:03: WBC 9.1, RBC 3.65 L, Hgb 10.6 L, Hct 37.9, MCV 103.8 H, MCH 29.0, MCHC 28.0 L, RDW Std Deviation 58.4 H, RDW Coeff of Juliet 15.4 H, Plt Count 163, MPV 9.8, Immature Gran % (Auto) 3.800 H, Neut % (Auto) 81.8 H, Lymph % (Auto) 6.4 L, Young % (Auto) 5.5, Eos % (Auto) 1.8, Baso % (Auto) 0.7, Absolute Neuts (auto) 7.4, Absolute Lymphs (auto) 0.58 L, Nucleated RBC % 0.3, Platelet Estimate ADEQUATE, Hypochromasia 1+, Macrocytosis 1+ 07/09/20 13:03: D-Dimer Quant (PE/DVT) Cancelled 07/09/20 13:03: Sodium Cancelled, Potassium Cancelled, Chloride Cancelled, Carbon Dioxide Cancelled, Anion Gap Cancelled, BUN Cancelled, Creatinine Cancelled, Estim Creat Clear Calc Cancelled, Est GFR (MDRD) Af Amer Cancelled, Est GFR (MDRD) Non-Af Cancelled, BUN/Creatinine Ratio Cancelled, Glucose Cancelled, Calcium Cancelled, Troponin I Cancelled 07/09/20 13:03: B-Natriuretic Peptide 88.3 07/09/20 13:45: D-Dimer Quant (PE/DVT) 0.42 07/09/20 13:45: Sodium 141, Potassium 4.4, Chloride 100, Carbon Dioxide 41.0 H, Anion Gap 0 L, BUN 33 H, Creatinine 1.00, Estim Creat Clear Calc 45.66, Est GFR (MDRD) Af Amer 74, Est GFR (MDRD) Non-Af 61, BUN/Creatinine Ratio 33.0 H, Glucose 171 H, Calcium 8.4 L, Troponin I < 0.015 07/09/20 14:55: Specimen Type ART, Sample Site L Radial, pH 7.13 L*, Bicarbonate Actual 45.8 H, Total CO2 50, Base Excess 17 H, O2 Saturation 94 L, ABG pCO2 13 7.2 H*, ABG pO2 104 H, José Antonio Test Positive, O2 Delivery Device NRB, Liter Flow 15.0 07/09/20 15:56: COVID-19 (DIPAK) Not Detected 07/09/20 16:15: MRSA (PCR) Negative 07/09/20 16:34: POC Glucose 154 H 07/09/20 17:17: Specimen Type ART, Sample Site R Radial, pH 7.16 L*, Bicarbonate Actual 45.1 H, Total CO2 49, Base Excess 16 H, O2 Saturation 82 L, O2 % 50, ABG pCO2 126.2 H*, ABG pO2 64 L, José Antonio Test Positive, Respiration Rate 16, O2 Delivery Device BiPAP, Vent Mode NCPAP, Tidal Volume 400, POC PEEP 10 07/09/20 17:30: Tricyclics Screen Negative, Ur Drug Screen Comment 07/09/20 17:30: Urine Opiates Screen NEGATIVE, Urine Methadone Screen NEGATIVE, Ur Barbiturates Screen NEGATIVE, Ur Phencyclidine Scrn NEGATIVE, Ur Amphetamines Screen NEGATIVE, U Methamphetamin-MDMA NEGATIVE, U Benzodiazepines Scrn NEGATIVE, Urine Cocaine Screen NEGATIVE, U Cannabinoids Screen NEGATIVE, Ur Drug Screen Comment 07/09/20 20:32: Specimen Type ART, Sample Site L Radial, pH 7.23 L, Bicarbonate Actual 44.1 H, Total CO2 47, Base Excess 17 H, O2 Saturation 89 L, O2 % 50, ABG pCO2 106.0 H*, ABG pO2 73 L, José Antonio Test Positive, O2 Delivery Device BiPAP, Vent Mode avaps, Tidal Volume 450, POC PEEP 10 07/09/20 22:29: POC Glucose 135 H 07/10/20 03:30: WBC 7.3, RBC 3.32 L, Hgb 9.5 L, Hct 33.6 L, MCV 101.2 H, MCH 28.6, MCHC 28.3 L, RDW Std Deviation 56.7 H, RDW Coeff of Juliet 15.3 H, Plt Count 146 L, MPV 9.7, Immature Gran % (Auto) 2.100 H, Neut % (Auto) 83.0 H, Lymph % (Auto) 6.2 L, Young % (Auto) 5.5, Eos % (Auto) 2.7, Baso % (Auto) 0.5, Absolute Neuts (auto) 6.1, Absolute Lymphs (auto) 0.45 L, Nucleated RBC % 0 07/10/20 03:30: Sodium 143, Potassium 4.1, Chloride 103, Carbon Dioxide 39.0 H, Anion Gap 1 L, BUN 27 H, Creatinine 0.82, Estim Creat Clear Calc 211.22, Est GFR (MDRD) Af Amer 93, Est GFR (MDRD) Non-Af 77, BUN/Creatinine Ratio 32.8 H, Glucose 147 H, Calcium 8.3 L, Phosphorus 1.8 L, Magnesium 2.4, Total Bilirubin 0.40, AST 34, ALT 41, Alkaline Phosphatase 70, Total Protein 6.8, Albumin 2.6 L, Globulin 4.2, Albumin/Globulin Ratio 0.6 L, TSH 2.30 07/10/20 05:28: Specimen Type ART, Sample Site L Radial, pH 7.25 L, Bicarbonate Actual 43.0 H, Total CO2 46, Base Excess 16 H, O2 Saturation 95, O2 % 50, ABG pCO2 98.1 H*, ABG pO2 91, José Antonio Test Positive, Respiration Rate 20, O2 Delivery Device BiPAP, Tidal Volume 450 Current Medications Acetazolamide (Acetazolamide 250 Mg Tablet) 125 mg PO TIDPC [facility] Last Admin: 07/09/20 18:49 Dose: Not Given Documented by: Albuterol Sulfate (Albuterol 2.5 Mg/3 Ml Vial.Neb.) 2.5 mg INHALATION Q2H PRN PRN PRN Reason: SOB/Wheezing Atorvastatin Calcium (Atorvastatin Calcium 20 Mg Tablet) 20 mg PO QHS [facility] Last Admin: 07/09/20 22:26 Dose: 20 mg Documented by: Diltiazem HCl (Diltiazem Cd 240 Mg Capsule) 240 mg PO DAILY [facility] Enoxaparin Sodium (Enoxaparin 40 Mg/0.4 Ml Syringe) 40 mg SC DAILY [facility] Escitalopram Oxalate (Escitalopram Oxalate 10 Mg Tablet) 10 mg PO DAILY [facility] Furosemide (Furosemide 20 Mg Tablet) 20 mg PO BID@1000,1700 [facility] Last Admin: 07/09/20 18:49 Dose: Not Given Documented by: Gabapentin (Gabapentin 300 Mg Capsule) 300 mg PO QHS [facility] Last Admin: 07/09/20 22:26 Dose: 300 mg Documented by: Azithromycin 500 mg/ Dextrose 255 mls @ 250 mls/hr IV Q24 [facility] Stop: 07/15/20 10:01 Vancomycin IV Pharmacy to Dose (1 ea/ Sodium Chloride) 500 mls @ 250 mls/hr IV X1 PRN; Protocol PRN Reason: Rx to Dose Piperacillin Sod/Tazobactam (Sod 3.375 gm/ Sodium Chloride) 50 mls @ 12.5 mls/hr IV Q8 [facility] Stop: 07/16/20 22:01 Last Admin: 07/10/20 06:34 Dose: 12.5 mls/hr Documented by: Vancomycin HCl 1,250 mg/ (Sodium Chloride) 275 mls @ 167 mls/hr IV Q8H [facility] Last Infusion: 07/10/20 04:59 Dose: Infused Documented by: Sodium Chloride () 250 mls @ 15 mls/hr IV .[id number] PRN PRN Reason: Saline Flush Sodium Chloride () 250 mls @ 15 mls/hr IV .[id number] PRN PRN Reason: Additional IVPB Infusion Insulin Human Lispro (Insulin Lispro 100 Unit/Ml Insuln.Pen) 0 unit SC Q6 [facility]; Protocol Last Admin: 07/10/20 05:48 Dose: Not Given Documented by: Multi-Ingredient Ointment (Mineral Oil/Petrolatum Cr 1.75oz Bottle) 1 applic TOPICAL PRN PRN; Protocol PRN Reason: DRY SKIN Nystatin (Nystatin Powder 15gm Bottle) 1 applic TOPICAL BID [facility]; Protocol Ondansetron HCl (Ondansetron 4 Mg/2 Ml Vial) 4 mg IV Q8H PRN PRN PRN Reason: NAUSEA/VOMITING Sodium Chloride (0.9% Saline Lock 10 Ml Syringe) 10 - 40 ml IV UD PRN PRN Reason: SALINE FLUSH STROKE Vital Signs/Narrative: Vital Signs Temp Pulse Resp BP Pulse Ox 07/10/20 07:06 73 22 H 92 07/10/20 07:00 73 19 H 114/52 L 92 07/10/20 06:00 71 24 H 107/45 L 95 07/10/20 05:06 76 26 H 94 07/10/20 05:00 77 24 H 126/61 H 94 07/10/20 04:00 98.2 F 78 24 H 140/58 H 95 Medical Necessity - Tobacco Use Smoking Status: Unknown if ever smoked Assessment/Plan All Active Problems Pneumonia (Acute) Respiratory failure (Acute) Ulcer of left thigh (Resolved) Sepsis (Resolved) HCAP (healthcare-associated pneumonia) (Resolved) UTI (urinary tract infection) (Resolved) Bacteremia due to Streptococcus (Resolved) CAP (community acquired pneumonia) (Resolved) Lower GI bleed (Resolved) Acute on chronic diastolic heart failure (Resolved) Acute bronchitis with asthma with acute exacerbation (Resolved) Acute bronchitis (Resolved) Atrial fibrillation with RVR (Resolved) Otitis externa (Resolved) Abdominal pain (Resolved) Abscess of left thigh (Resolved) Blood in stool (Resolved) Drug overdose (Resolved) History of necrotizing fasciitis (Resolved) Suicide attempt (Resolved) Wide-complex tachycardia (Resolved) 1. Acute on chronic combined respiratory failure secondary to HCAP/obesity hypoventilation syndrome Patient remains on BiPAP, CODE STATUS DNR CCA, no intubation Continue on BiPAP, will continue to follow, breathing treatments as needed 2. HCAP, MRSA PCR negative, on IV vancomycin, Zosyn and azithromycin Rapid Covid antigen is negative, respiratory panel negative, urine Legionella enterococcal antigen negative Chest x-ray shows multifocal pneumonia Will discontinue vancomycin and azithromycin; continue on IV Zosyn for now Blood cultures are pending Continue with breathing treatments as needed 3. Acute metabolic encephalopathy likely secondary to #1 and #2 Urine tox was negative Hold gabapentin 4. Hypertension, uncontrolled, continue Cardizem, will add hydralazine as needed 5. Type II DM/hyperlipidemia/depression/morbid obesity Home Metformin, Victoza and glipizide on hold Continue with insulin sliding scale and blood glucose checks q6h 6. Chronic metabolic alkalosis/heart failure with preserved EF/severe pulmonary hypertension/paroxysmal atrial fibrillation, -all remain stable, complicates care 7. DVT prophylaxis with Lovenox subcu BID Inpatient E&M: [id number] [facility] L3
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
[2020-07-10 09:32] LABS: Allen Test Positive; Base Excess 18 mmol/L (-2 to +2); Blood Gas Specimen Type ART; O2 Delivery Device NRB; PO2 108 mmHG (75-100); SITE L Radial; SO2 95 % (95-99); Total Carbon Dioxide > 50 mmol/L; pH 7.12 (7.35-7.45)
[2020-07-10] MEDS: Escitalopram Oxalate 10 MG Tablet PO (10:03)
[2020-07-10] MEDS: dilTIAZem CD 240 MG Capsule PO (10:03)
[2020-07-10] MEDS: Furosemide 20 MG Tablet PO ×2 (10:03→17:53)
[2020-07-10] MEDS: AcetaZOLAMIDE 250 MG Tablet 125 MG PO ×2 (10:03→17:53)
[2020-07-10] MEDS: Enoxaparin 40 MG/0.4 ML Syringe SC ×2 (10:04→21:08)
[2020-07-10] MEDS: Nystatin Powder 15gm Bottle 1 APPLIC TOPICAL ×2 (10:04→21:08)
--- NOTE | 2020-07-10 10:47 | CASEMGMT ---
SW participated in ICU rounds, pt is here from [facility]. SW spoke w/Carmen at [facility]. She confirmed pt's just , she does have two daughters however. SW faxed updates to Carmen, called daughter Nguyen and left a message to call this SW. HOLLIE Browne
--- NOTE | 2020-07-10 11:27 | CASEMGMT ---
Pt's daughter Nguyen called this SW back, she confirms plan is for pt to return to [facility] when ready. Nguyen states her father, pt's , just on and she is concerned part of what is going on w/pt has to do with her being upset. Nguyen asked if the calciminer can go in to see pt, SW will let the calciminer know. SW explained will also go in to check on pt. SW will continue to follow, will follow up w/pt today or tomorrow. HOLLIE Browne
[2020-07-10 12:00] LABS: Allen Test Positive; Base Excess 15 mmol/L (-2 to +2); Blood Gas Specimen Type ART; O2 Delivery Device Cannula; PO2 98 mmHG (75-100); SITE L Brach; SO2 96 % (95-99); Total Carbon Dioxide 45 mmol/L; pCO2 97.9 mmHg (35-45); pH 7.24 (7.35-7.45)
--- NOTE | 2020-07-10 12:10 | CPS ---
Critical ABG result told to Danelle CALZADA and left copy on Dr Arreaga's desk. RN will placed pt back on AVAPS after clergy done speaking w/patient
[2020-07-10 12:46] LABS: Bedside Glucose 173 mg/dL (70-110)
--- NOTE | 2020-07-10 15:29 | CHAPLAIN ---
Type of Pastoral Visit _x__ Initial Visit ___ Follow-up Visit ___ On-call Visit ___ General Patient Visit ___ Spiritual Assessment ___ Family Conference ___ Bereavement ___ Rapid Response ___ Code Blue ___ Other (describe below) Pastoral Care Referral From ___ Patient _x__ Family ___ Nurse ___ Physician _x__ Pelt Salter ___ Class B Driver ___ Other (describe below) Sacrament/Intervention _x__ Active listening ___ Anointing ___ Worship _x__ Bereavement ___ Communion ___ Shiela exploration ___ ___ Life review _x__ Prayer ___ Reconciliation ___ Sacrament of Sick _x__ Supportive presence ___ Wedding ___ Other (describe below) Pastoral Comments offer of support given to patient whose spouse 4 days ago; pt has been seen in previous admissions; pt is open to prayer support and presence; pt states that she is doing ok; pt has been living [facility] and plans to return there; pt says she has daughters for her family;
[2020-07-10 18:10] LABS: Bedside Glucose 125 mg/dL (70-110)
[2020-07-10] MEDS: Atorvastatin Calcium 20 MG Tablet PO (21:08)
[2020-07-10 23:41] LABS: Bedside Glucose 123 mg/dL (70-110)
[2020-07-11] VITALS (30 sets, daily range): BP systolic 121–181; BP diastolic 47–80; PULSE 56–76; RESP 12–25; TEMP 36.6–37.1; O2SAT 89–99
[2020-07-11] MEDS: Acetaminophen 325 MG Tablet 650 MG PO (00:28)
[2020-07-11] MEDS: Mineral Oil/Petrolatum Cr 1.75oz Bottle 1 APPLIC TOPICAL (00:31)
[2020-07-11 04:15] LABS: Absolute Lymphocyte Count 0.75 X10^3/uL (0.83-4.51); Absolute Neutrophil Count 4.7 X10^3/uL (2.0-7.7); Basophil# 0.03 X10^3/uL; Basophil% 0.5 % (0-1); Eosinophil# 0.24 X10^3/uL; Eosinophils% 3.8 % (0-5); Hematocrit 31.7 % (37-47); Hemoglobin 8.9 g/dL (12.0-15.0); Lymphocyte # 0.75 X10^3/ul (4.0); Lymphocyte % 11.8 % (19-41); Mean Corp Hgb Conc 28.1 g/dL (32-36); Mean Corpuscular Hgb 28.8 pg (27.0-32.0); Mean Corpuscular Volume 102.6 fL (81-99); Mean Platelet Vol. 9.3 fl (6.2-12.0); Monocyte# 0.52 X10^3/uL; Monocyte% 8.2 % (0-10); NRBC Flagged by Analyzer 0 % (0-5); Neutrophil # 4.67 X10^3/uL (2.7-7.7); Neutrophil % 73.3 % (47-70); Platelet Count 146 K/mm3 (150-450); RBC Distribution Width CV 15.4 % (11.6-14.6); RBC Distribution Width SD 58.3 fl (35.1-43.9); Red Blood Count 3.09 M/mm3 (4.2-5.4); White Blood Count 6.4 K/mm3 (4.4-11.0)
[2020-07-11 04:35] LABS: ALB/GLOB Ratio 0.5 RATIO (0.9-2.4); AST(SGOT) 29 U/L (15-37); Alanine Aminotransfer ALT/SGPT 35 U/L (13-56); Albumin, Serum 2.4 g/dL (3.2-5.0); Alkaline Phosphatase 68 U/L (45-117); Anion Gap 5 (5-15); BUN 21 mg/dL (7-18); BUN/Creat Ratio 25.7 RATIO (10-20); Calcium,Total 8.5 mg/dL (8.5-10.1); Chloride 101 mmol/L (98-107); Creatinine, Serum 0.82 mg/dL (0.55-1.02); EST Glomerular Filtration Rate 77 mL/min (>60); Est Glom Filt Rate - Afr Amer 94 mL/min (>60); Estimated Creatinine Clearance 211.22 ml/min; Globulin 4.4 g/dL (2.2-4.2); Glucose 138 mg/dL (74-106); Potassium 3.6 mmol/L (3.5-5.1); Protein, Total 6.8 g/dL (6.4-8.2); Sodium Level 143 mmol/L (136-145)
--- NOTE | 2020-07-11 06:00 | RAD_ITS ---
STUDY: X-RAY CHEST REASON FOR EXAM: Female, 55 years old. SOB. PNEUMONIA TECHNIQUE: Single AP portable view of the chest. COMPARISON: July 09, 2020 FINDINGS: There is less opacity in the right upper lobe and prior studies. There is persistent patchy density in lung bases. There is no demonstrated pleural abnormality. There is mild cardiac enlargement. Normal mediastinum and negra. Normal visualized pulmonary arteries. Normal visualized aortic arch and descending thoracic aorta. Normal visualized thoracic spine. Normal visualized ribs, clavicles, and shoulders. There is no demonstrated abnormality of the visualized soft tissue structures of the upper abdomen. RAD/Chest 1 View (Portable) IMPRESSION: Slight improvement. Multifocal infiltrates. Electronically Signed: Tabitha Bassett MD at 6:28 EST Tel , Service support ,
--- NOTE | 2020-07-11 06:33 | PN_ITS ---
Subjective: Patient did okay through the day yesterday. Patient was able to take short breaks off of BiPAP, but nursing reports after 2 to 3 hours the patient became somnolent. Patient was much more appropriate this morning and states that she has not taken any new medications, including sleep aids, recently. Patient does not report feeling ill prior to hospitalization. Patient does state that she was treated with BiPAP in the past for sleep apnea, but does not use this routinely at the halfway. General: Alert, Oriented x3, Cooperative, No apparent distress, - - Morbidly obese. Fair vocalization. HEENT: Atraumatic, PERRLA, EOMI, Normocephalic, - - No scleral icterus or injection noted Oral: No Gingival or Mucosal Lesions/ Ulcerations, Dry Mucosa, - - Crowded posterior pharynx Neck: Supple, No Nodes, Trachea Midline, - - Unable to assess JVD secondary to body habitus Lungs: No rhonchi, No wheeze, No rales, Diminished, - - Repeat chest x-ray shows improvement in infiltrates Cardiovascular: Normal S1, Normal S2, No murmurs, Bradycardic, No rub noted, No Gallop Abdomen: Bowel Sounds Present, Soft, Non Tender, Non-Distended, Obese Extremities: No clubbing, No cyanosis, Edema - Nonpitting Skin: - - No change from previous Musculoskeletal: No Tenderness to Palpation of Joints or Extremities Lymphatic: No Cervical, Supraclavicular, or Inguinal Adenopathy Neurological: Cranial nerves II-XII grossly intact, Neuro grossly intact, Motor Exam 5/5 strength throughout Psych/Mental Status: Appropriate, Flat Affect Vital Signs Temp Pulse Resp BP Pulse Ox 36.6 C 56 L 20 H 153/60 H 94 07/11/20 04:00 07/11/20 05:00 07/11/20 05:00 07/11/20 05:00 07/11/20 05:00 Oxygen Flow Rate (L/min) 5 Oxygen Delivery Method Bi-pap Weight: 172.6 kg Body Mass Index (BMI) 74.7 Intake and Output for Last 24 Hours 07/09/20 07/10/20 07/11/20 23:59 23:59 23:59 Intake Total 995 / 995 1720 / 1720 50 / 50 Output Total 400 / 400 4300 / 4300 225 / 225 Balance 595 / 595 -2580 / -2580 -175 / -175 Labs (Last 48 Hours) 07/09/20 07/09/20 07/09/20 12:40 13:03 13:03 WBC 9.1 RBC 3.65 L Hgb 10.6 L Hct 37.9 MCV 103.8 H MCH 29.0 MCHC 28.0 L RDW Std Deviation 58.4 H RDW Coeff of Juliet 15.4 H Plt Count 163 MPV 9.8 Immature Gran % (Auto) 3.800 H Neut % (Auto) 81.8 H Lymph % (Auto) 6.4 L [place] % (Auto) 5.5 Eos % (Auto) 1.8 Baso % (Auto) 0.7 Absolute Neuts (auto) 7.4 Absolute Lymphs (auto) 0.58 L Nucleated RBC % 0.3 Platelet Estimate ADEQUATE Hypochromasia 1+ Macrocytosis 1+ D-Dimer Quant (PE/DVT) Cancelled Specimen Type Sample Site pH Bicarbonate Actual Total CO2 Base Excess O2 Saturation O2 % ABG pCO2 ABG pO2 José Antonio Test Respiration Rate O2 Delivery Device Liter Flow Minute Volume Vent Mode Inspiratory Time Expiratory Time Tidal Volume POC PEEP POC Pressure Suppt Pressure Control Pressure High Pressure Low Time High Time Low EPAP IPAP Blood Gas Comments Blood Gas Notified Whom Blood Gas Notified Time Sodium Potassium Chloride Carbon Dioxide Anion Gap BUN Creatinine Estim Creat Clear Calc Est GFR (MDRD) Af Amer Est GFR (MDRD) Non-Af BUN/Creatinine Ratio Glucose Calcium Phosphorus Magnesium Total Bilirubin AST ALT Alkaline Phosphatase Troponin I B-Natriuretic Peptide Total Protein Albumin Globulin Albumin/Globulin Ratio TSH Urine Color Yellow Urine Clarity Clear Urine pH 6.0 Ur Specific [place] 1.020 Urine Protein 30 H Urine Glucose (UA) Normal Urine Ketones Negative Urine Occult Blood Negative Urine Nitrite Negative Urine Bilirubin Negative Urine Urobilinogen Normal Ur Leukocyte Esterase Negative Urine RBC 0 SEEN Urine WBC 0 SEEN Ur Squamous Epith Cells 0-5 SEEN Urine Bacteria 0 SEEN Urine Mucus 0 SEEN Urine Opiates Screen Urine Methadone Screen Ur Barbiturates Screen Tricyclics Screen Ur Phencyclidine Scrn Ur Amphetamines Screen U Methamphetamin-MDMA U Benzodiazepines Scrn Urine Cocaine Screen U Cannabinoids Screen Ur Drug Screen Comment COVID-19 (DIPAK) MRSA (PCR) POC Glucose 07/09/20 07/09/20 07/09/20 13:03 13:03 13:45 WBC RBC Hgb Hct MCV MCH MCHC RDW Std Deviation RDW Coeff of Juliet Plt Count MPV Immature Gran % (Auto) Neut % (Auto) Lymph % (Auto) [place] % (Auto) Eos % (Auto) Baso % (Auto) Absolute Neuts (auto) Absolute Lymphs (auto) Nucleated RBC % Platelet Estimate Hypochromasia Macrocytosis D-Dimer Quant (PE/DVT) 0.42 Specimen Type Sample Site pH Bicarbonate Actual Total CO2 Base Excess O2 Saturation O2 % ABG pCO2 ABG pO2 José Antonio Test Respiration Rate O2 Delivery Device Liter Flow Minute Volume Vent Mode Inspiratory Time Expiratory Time Tidal Volume POC PEEP POC Pressure Suppt Pressure Control Pressure High Pressure Low Time High Time Low EPAP IPAP Blood Gas Comments Blood Gas Notified Whom Blood Gas Notified Time Sodium Cancelled Potassium Cancelled Chloride Cancelled Carbon Dioxide Cancelled Anion Gap Cancelled BUN Cancelled Creatinine Cancelled Estim Creat Clear Calc Cancelled Est GFR (MDRD) Af Amer Cancelled Est GFR (MDRD) Non-Af Cancelled BUN/Creatinine Ratio Cancelled Glucose Cancelled Calcium Cancelled Phosphorus Magnesium Total Bilirubin AST ALT Alkaline Phosphatase Troponin I Cancelled B-Natriuretic Peptide 88.3 Total Protein Albumin Globulin Albumin/Globulin Ratio TSH Urine Color Urine Clarity Urine pH Ur Specific [place] Urine Protein Urine Glucose (UA) Urine Ketones Urine Occult Blood Urine Nitrite Urine Bilirubin Urine Urobilinogen Ur Leukocyte Esterase Urine RBC Urine WBC Ur Squamous Epith Cells Urine Bacteria Urine Mucus Urine Opiates Screen Urine Methadone Screen Ur Barbiturates Screen Tricyclics Screen Ur Phencyclidine Scrn Ur Amphetamines Screen U Methamphetamin-MDMA U Benzodiazepines Scrn Urine Cocaine Screen U Cannabinoids Screen Ur Drug Screen Comment COVID-19 (DIPAK) MRSA (PCR) POC Glucose 07/09/20 07/09/20 07/09/20 13:45 14:49 14:55 WBC RBC Hgb Hct MCV MCH MCHC RDW Std Deviation RDW Coeff of Juliet Plt Count MPV Immature Gran % (Auto) Neut % (Auto) Lymph % (Auto) [place] % (Auto) Eos % (Auto) Baso % (Auto) Absolute Neuts (auto) Absolute Lymphs (auto) Nucleated RBC % Platelet Estimate Hypochromasia Macrocytosis D-Dimer Quant (PE/DVT) Specimen Type ART Cancelled Sample Site L Radial Cancelled pH 7.12 L* Cancelled Bicarbonate Actual 47.0 H Cancelled Total CO2 > 50 Cancelled Base Excess 18 H Cancelled O2 Saturation 95 Cancelled O2 % Cancelled ABG pCO2 146.0 H* Cancelled ABG pO2 108 H Cancelled José Antonio Test Positive Cancelled Respiration Rate Cancelled O2 Delivery Device NRB Cancelled Liter Flow 15.0 Cancelled Minute Volume Cancelled Vent Mode Cancelled Inspiratory Time Cancelled Expiratory Time Cancelled Tidal Volume Cancelled POC PEEP Cancelled POC Pressure Suppt Cancelled Pressure Control Cancelled Pressure High Cancelled Pressure Low Cancelled Time High Cancelled Time Low Cancelled EPAP Cancelled IPAP Cancelled Blood Gas Comments Cancelled Blood Gas Notified Whom Cancelled Blood Gas Notified Time Cancelled Sodium 141 Potassium 4.4 Chloride 100 Carbon Dioxide 41.0 H Anion Gap 0 L BUN 33 H Creatinine 1.00 Estim Creat Clear Calc 45.66 Est GFR (MDRD) Af Amer 74 Est GFR (MDRD) Non-Af 61 BUN/Creatinine Ratio 33.0 H Glucose 171 H Calcium 8.4 L Phosphorus Magnesium Total Bilirubin AST ALT Alkaline Phosphatase Troponin I < 0.015 B-Natriuretic Peptide Total Protein Albumin Globulin Albumin/Globulin Ratio TSH Urine Color Urine Clarity Urine pH Ur Specific [place] Urine Protein Urine Glucose (UA) Urine Ketones Urine Occult Blood Urine Nitrite Urine Bilirubin Urine Urobilinogen Ur Leukocyte Esterase Urine RBC Urine WBC Ur Squamous Epith Cells Urine Bacteria Urine Mucus Urine Opiates Screen Urine Methadone Screen Ur Barbiturates Screen Tricyclics Screen Ur Phencyclidine Scrn Ur Amphetamines Screen U Methamphetamin-MDMA U Benzodiazepines Scrn Urine Cocaine Screen U Cannabinoids Screen Ur Drug Screen Comment COVID-19 (DIPAK) MRSA (PCR) POC Glucose 07/09/20 07/09/20 07/09/20 15:56 16:15 16:34 WBC RBC Hgb Hct MCV MCH MCHC RDW Std Deviation RDW Coeff of Juliet Plt Count MPV Immature Gran % (Auto) Neut % (Auto) Lymph % (Auto) [place] % (Auto) Eos % (Auto) Baso % (Auto) Absolute Neuts (auto) Absolute Lymphs (auto) Nucleated RBC % Platelet Estimate Hypochromasia Macrocytosis D-Dimer Quant (PE/DVT) Specimen Type Sample Site pH Bicarbonate Actual Total CO2 Base Excess O2 Saturation O2 % ABG pCO2 ABG pO2 José Antonio Test Respiration Rate O2 Delivery Device Liter Flow Minute Volume Vent Mode Inspiratory Time Expiratory Time Tidal Volume POC PEEP POC Pressure Suppt Pressure Control Pressure High Pressure Low Time High Time Low EPAP IPAP Blood Gas Comments Blood Gas Notified Whom Blood Gas Notified Time Sodium Potassium Chloride Carbon Dioxide Anion Gap BUN Creatinine Estim Creat Clear Calc Est GFR (MDRD) Af Amer Est GFR (MDRD) Non-Af BUN/Creatinine Ratio Glucose Calcium Phosphorus Magnesium Total Bilirubin AST ALT Alkaline Phosphatase Troponin I B-Natriuretic Peptide Total Protein Albumin Globulin Albumin/Globulin Ratio TSH Urine Color Urine Clarity Urine pH Ur Specific [place] Urine Protein Urine Glucose (UA) Urine Ketones Urine Occult Blood Urine Nitrite Urine Bilirubin Urine Urobilinogen Ur Leukocyte Esterase Urine RBC Urine WBC Ur Squamous Epith Cells Urine Bacteria Urine Mucus Urine Opiates Screen Urine Methadone Screen Ur Barbiturates Screen Tricyclics Screen Ur Phencyclidine Scrn Ur Amphetamines Screen U Methamphetamin-MDMA U Benzodiazepines Scrn Urine Cocaine Screen U Cannabinoids Screen Ur Drug Screen Comment COVID-19 (DIPAK) Not Detected MRSA (PCR) Negative POC Glucose 154 H 07/09/20 07/09/20 07/09/20 17:17 17:30 17:30 WBC RBC Hgb Hct MCV MCH MCHC RDW Std Deviation RDW Coeff of Juliet Plt Count MPV Immature Gran % (Auto) Neut % (Auto) Lymph % (Auto) [place] % (Auto) Eos % (Auto) Baso % (Auto) Absolute Neuts (auto) Absolute Lymphs (auto) Nucleated RBC % Platelet Estimate Hypochromasia Macrocytosis D-Dimer Quant (PE/DVT) Specimen Type ART Sample Site R Radial pH 7.16 L* Bicarbonate Actual 45.1 H Total CO2 49 Base Excess 16 H O2 Saturation 82 L O2 % 50 ABG pCO2 126.2 H* ABG pO2 64 L José Antonio Test Positive Respiration Rate 16 O2 Delivery Device BiPAP Liter Flow Minute Volume Vent Mode NCPAP Inspiratory Time Expiratory Time Tidal Volume 400 POC PEEP 10 POC Pressure Suppt Pressure Control Pressure High Pressure Low Time High Time Low EPAP IPAP Blood Gas Comments Blood Gas Notified Whom Blood Gas Notified Time Sodium Potassium Chloride Carbon Dioxide Anion Gap BUN Creatinine Estim Creat Clear Calc Est GFR (MDRD) Af Amer Est GFR (MDRD) Non-Af BUN/Creatinine Ratio Glucose Calcium Phosphorus Magnesium Total Bilirubin AST ALT Alkaline Phosphatase Troponin I B-Natriuretic Peptide Total Protein Albumin Globulin Albumin/Globulin Ratio TSH Urine Color Urine Clarity Urine pH Ur Specific [place] Urine Protein Urine Glucose (UA) Urine Ketones Urine Occult Blood Urine Nitrite Urine Bilirubin Urine Urobilinogen Ur Leukocyte Esterase Urine RBC Urine WBC Ur Squamous Epith Cells Urine Bacteria Urine Mucus Urine Opiates Screen NEGATIVE Urine Methadone Screen NEGATIVE Ur Barbiturates Screen NEGATIVE Tricyclics Screen Negative Ur Phencyclidine Scrn NEGATIVE Ur Amphetamines Screen NEGATIVE U Methamphetamin-MDMA NEGATIVE U Benzodiazepines Scrn NEGATIVE Urine Cocaine Screen NEGATIVE U Cannabinoids Screen NEGATIVE Ur Drug Screen Comment COVID-19 (DIPAK) MRSA (PCR) POC Glucose 07/09/20 07/09/20 07/10/20 20:32 22:29 03:30 WBC 7.3 RBC 3.32 L Hgb 9.5 L Hct 33.6 L MCV 101.2 H MCH 28.6 MCHC 28.3 L RDW Std Deviation 56.7 H RDW Coeff of Juliet 15.3 H Plt Count 146 L MPV 9.7 Immature Gran % (Auto) 2.100 H Neut % (Auto) 83.0 H Lymph % (Auto) 6.2 L [place] % (Auto) 5.5 Eos % (Auto) 2.7 Baso % (Auto) 0.5 Absolute Neuts (auto) 6.1 Absolute Lymphs (auto) 0.45 L Nucleated RBC % 0 Platelet Estimate Hypochromasia Macrocytosis D-Dimer Quant (PE/DVT) Specimen Type ART Sample Site L Radial pH 7.23 L Bicarbonate Actual 44.1 H Total CO2 47 Base Excess 17 H O2 Saturation 89 L O2 % 50 ABG pCO2 106.0 H* ABG pO2 73 L José Antonio Test Positive Respiration Rate O2 Delivery Device BiPAP Liter Flow Minute Volume Vent Mode avaps Inspiratory Time Expiratory Time Tidal Volume 450 POC PEEP 10 POC Pressure Suppt Pressure Control Pressure High Pressure Low Time High Time Low EPAP IPAP Blood Gas Comments Blood Gas Notified Whom Blood Gas Notified Time Sodium Potassium Chloride Carbon Dioxide Anion Gap BUN Creatinine Estim Creat Clear Calc Est GFR (MDRD) Af Amer Est GFR (MDRD) Non-Af BUN/Creatinine Ratio Glucose Calcium Phosphorus Magnesium Total Bilirubin AST ALT Alkaline Phosphatase Troponin I B-Natriuretic Peptide Total Protein Albumin Globulin Albumin/Globulin Ratio TSH Urine Color Urine Clarity Urine pH Ur Specific [place] Urine Protein Urine Glucose (UA) Urine Ketones Urine Occult Blood Urine Nitrite Urine Bilirubin Urine Urobilinogen Ur Leukocyte Esterase Urine RBC Urine WBC Ur Squamous Epith Cells Urine Bacteria Urine Mucus Urine Opiates Screen Urine Methadone Screen Ur Barbiturates Screen Tricyclics Screen Ur Phencyclidine Scrn Ur Amphetamines Screen U Methamphetamin-MDMA U Benzodiazepines Scrn Urine Cocaine Screen U Cannabinoids Screen Ur Drug Screen Comment COVID-19 (DIPAK) MRSA (PCR) POC Glucose 135 H 07/10/20 07/10/20 07/10/20 03:30 05:28 11:56 WBC RBC Hgb Hct MCV MCH MCHC RDW Std Deviation RDW Coeff of Juliet Plt Count MPV Immature Gran % (Auto) Neut % (Auto) Lymph % (Auto) [place] % (Auto) Eos % (Auto) Baso % (Auto) Absolute Neuts (auto) Absolute Lymphs (auto) Nucleated RBC % Platelet Estimate Hypochromasia Macrocytosis D-Dimer Quant (PE/DVT) Specimen Type ART ART Sample Site L Radial L Brach pH 7.25 L 7.24 L Bicarbonate Actual 43.0 H 42.0 H Total CO2 46 45 Base Excess 16 H 15 H O2 Saturation 95 96 O2 % 50 ABG pCO2 98.1 H* 97.9 H* ABG pO2 91 98 José Antonio Test Positive Positive Respiration Rate 20 O2 Delivery Device BiPAP Cannula Liter Flow 10.0 Minute Volume Vent Mode Inspiratory Time Expiratory Time Tidal Volume 450 POC PEEP POC Pressure Suppt Pressure Control Pressure High Pressure Low Time High Time Low EPAP IPAP Blood Gas Comments Blood Gas Notified Whom Blood Gas Notified Time Sodium 143 Potassium 4.1 Chloride 103 Carbon Dioxide 39.0 H Anion Gap 1 L BUN 27 H Creatinine 0.82 Estim Creat Clear Calc 211.22 Est GFR (MDRD) Af Amer 93 Est GFR (MDRD) Non-Af 77 BUN/Creatinine Ratio 32.8 H Glucose 147 H Calcium 8.3 L Phosphorus 1.8 L Magnesium 2.4 Total Bilirubin 0.40 AST 34 ALT 41 Alkaline Phosphatase 70 Troponin I B-Natriuretic Peptide Total Protein 6.8 Albumin 2.6 L Globulin 4.2 Albumin/Globulin Ratio 0.6 L TSH 2.30 Urine Color Urine Clarity Urine pH Ur Specific [place] Urine Protein Urine Glucose (UA) Urine Ketones Urine Occult Blood Urine Nitrite Urine Bilirubin Urine Urobilinogen Ur Leukocyte Esterase Urine RBC Urine WBC Ur Squamous Epith Cells Urine Bacteria Urine Mucus Urine Opiates Screen Urine Methadone Screen Ur Barbiturates Screen Tricyclics Screen Ur Phencyclidine Scrn Ur Amphetamines Screen U Methamphetamin-MDMA U Benzodiazepines Scrn Urine Cocaine Screen U Cannabinoids Screen Ur Drug Screen Comment COVID-19 (DIPAK) MRSA (PCR) POC Glucose 07/10/20 07/10/20 07/10/20 12:15 17:54 23:22 WBC RBC Hgb Hct MCV MCH MCHC RDW Std Deviation RDW Coeff of Juliet Plt Count MPV Immature Gran % (Auto) Neut % (Auto) Lymph % (Auto) [place] % (Auto) Eos % (Auto) Baso % (Auto) Absolute Neuts (auto) Absolute Lymphs (auto) Nucleated RBC % Platelet Estimate Hypochromasia Macrocytosis D-Dimer Quant (PE/DVT) Specimen Type Sample Site pH Bicarbonate Actual Total CO2 Base Excess O2 Saturation O2 % ABG pCO2 ABG pO2 José Antonio Test Respiration Rate O2 Delivery Device Liter Flow Minute Volume Vent Mode Inspiratory Time Expiratory Time Tidal Volume POC PEEP POC Pressure Suppt Pressure Control Pressure High Pressure Low Time High Time Low EPAP IPAP Blood Gas Comments Blood Gas Notified Whom Blood Gas Notified Time Sodium Potassium Chloride Carbon Dioxide Anion Gap BUN Creatinine Estim Creat Clear Calc Est GFR (MDRD) Af Amer Est GFR (MDRD) Non-Af BUN/Creatinine Ratio Glucose Calcium Phosphorus Magnesium Total Bilirubin AST ALT Alkaline Phosphatase Troponin I B-Natriuretic Peptide Total Protein Albumin Globulin Albumin/Globulin Ratio TSH Urine Color Urine Clarity Urine pH Ur Specific [place] Urine Protein Urine Glucose (UA) Urine Ketones Urine Occult Blood Urine Nitrite Urine Bilirubin Urine Urobilinogen Ur Leukocyte Esterase Urine RBC Urine WBC Ur Squamous Epith Cells Urine Bacteria Urine Mucus Urine Opiates Screen Urine Methadone Screen Ur Barbiturates Screen Tricyclics Screen Ur Phencyclidine Scrn Ur Amphetamines Screen U Methamphetamin-MDMA U Benzodiazepines Scrn Urine Cocaine Screen U Cannabinoids Screen Ur Drug Screen Comment COVID-19 (DIPAK) MRSA (PCR) POC Glucose 173 H 125 H 123 H 07/11/20 07/11/20 04:05 04:05 WBC 6.4 RBC 3.09 L Hgb 8.9 L Hct 31.7 L MCV 102.6 H MCH 28.8 MCHC 28.1 L RDW Std Deviation 58.3 H RDW Coeff of Juliet 15.4 H Plt Count 146 L MPV 9.3 Immature Gran % (Auto) 2.400 H Neut % (Auto) 73.3 H Lymph % (Auto) 11.8 L [place] % (Auto) 8.2 Eos % (Auto) 3.8 Baso % (Auto) 0.5 Absolute Neuts (auto) 4.7 Absolute Lymphs (auto) 0.75 L Nucleated RBC % 0 Platelet Estimate Hypochromasia Macrocytosis D-Dimer Quant (PE/DVT) Specimen Type Sample Site pH Bicarbonate Actual Total CO2 Base Excess O2 Saturation O2 % ABG pCO2 ABG pO2 José Antonio Test Respiration Rate O2 Delivery Device Liter Flow Minute Volume Vent Mode Inspiratory Time Expiratory Time Tidal Volume POC PEEP POC Pressure Suppt Pressure Control Pressure High Pressure Low Time High Time Low EPAP IPAP Blood Gas Comments Blood Gas Notified Whom Blood Gas Notified Time Sodium 143 Potassium 3.6 Chloride 101 Carbon Dioxide 37.0 H Anion Gap 5 BUN 21 H Creatinine 0.82 Estim Creat Clear Calc 211.22 Est GFR (MDRD) Af Amer 94 Est GFR (MDRD) Non-Af 77 BUN/Creatinine Ratio 25.7 H Glucose 138 H Calcium 8.5 Phosphorus Magnesium Total Bilirubin 0.70 AST 29 ALT 35 Alkaline Phosphatase 68 Troponin I B-Natriuretic Peptide Total Protein 6.8 Albumin 2.4 L Globulin 4.4 H Albumin/Globulin Ratio 0.5 L TSH Urine Color Urine Clarity Urine pH Ur Specific [place] Urine Protein Urine Glucose (UA) Urine Ketones Urine Occult Blood Urine Nitrite Urine Bilirubin Urine Urobilinogen Ur Leukocyte Esterase Urine RBC Urine WBC Ur Squamous Epith Cells Urine Bacteria Urine Mucus Urine Opiates Screen Urine Methadone Screen Ur Barbiturates Screen Tricyclics Screen Ur Phencyclidine Scrn Ur Amphetamines Screen U Methamphetamin-MDMA U Benzodiazepines Scrn Urine Cocaine Screen U Cannabinoids Screen Ur Drug Screen Comment COVID-19 (DIPAK) MRSA (PCR) POC Glucose Microbiology 07/09/20 15:56 Mucosa - Nose Respiratory Panel (PCR) - Final 07/09/20 17:30 Urine, Clean Catch Legionella Antigen - Final 07/09/20 17:30 Urine, Clean Catch Streptococcus pneumoniae Antigen (M - Final 07/09/20 12:44 Mucosa - Nose SARS-CoV-2 Antigen (Rapid) - Final Clinical Impression(s) from Imaging Studies Chest X-Ray 07/11/20 06:00 IMPRESSION: Slight improvement. Multifocal infiltrates. Electronically Signed: Tabitha Bassett MD at 6:28 EST Tel , Service support , Medical Necessity - Tobacco Use Smoking Status: Unknown if ever smoked Assessment/Plan All Active Problems Pneumonia (Acute) Respiratory failure (Acute) Ulcer of left thigh (Resolved) Sepsis (Resolved) HCAP (healthcare-associated pneumonia) (Resolved) UTI (urinary tract infection) (Resolved) Bacteremia due to Streptococcus (Resolved) CAP (community acquired pneumonia) (Resolved) Lower GI bleed (Resolved) Acute on chronic diastolic heart failure (Resolved) Acute bronchitis with asthma with acute exacerbation (Resolved) Acute bronchitis (Resolved) Atrial fibrillation with RVR (Resolved) Otitis externa (Resolved) Abdominal pain (Resolved) Abscess of left thigh (Resolved) Blood in stool (Resolved) Drug overdose (Resolved) History of necrotizing fasciitis (Resolved) Suicide attempt (Resolved) Wide-complex tachycardia (Resolved) RECOMMENDATIONS: 1. Continue empiric Zosyn for now 2. BiPAP breaks as tolerated. ABG prior to reinitiation 3. Consider AVAPS with sleep as an outpatient 4. Potentially trial p.o. diet later today 5. Monitor blood sugars closely with titration as necessary IMPRESSIONS: 1. Acute on chronic combined respiratory failure secondary to possible multifocal pneumonia Unclear etiology. Patient may have had an aspiration event leading to decompensation. However, nasal MRSA swab is negative, so vancomycin can was discontinued. Will need aggressive pulmonary toileting. Patient is a DNR Comfort Care arrest without intubation. Viral work-up has been negative to this point. Patient may have an element of inflammation and atelectasis secondary to recent immunization. Chest x-ray does appear to be improved today compared to yesterday. This would be suggestive of atelectasis/hypoventilation as a possibility. Patient remains afebrile without leukocytosis, so likely only treat for a total of 5 days with antibiotics. 2. Metabolic encephalopathy secondary to CO2 retention Unclear if CO2 retention is secondary to recent immunization, aspiration or other inciting event. Patient does have elevated pulmonary artery pressures at baseline with preserved ejection fraction. Patient also has CO2 retention and significant morbid obesity leading to a predisposition for current findings. Patient should be continued on AVAPS for now to ensure ventilation. Will attempt BiPAP breaks through the day today. Will obtain an ABG prior to reinitiation of BiPAP to see if patient is having CO2 retention. Clinical suspicion the patient has an element of CO2 retention associated with sleep and should be on noninvasive therapy after discharge. 3. Paroxysmal A. fib/history of diastolic CHF chronically Patient is rate controlled at this time. There is no signs or symptoms of complications. Cannot exclude an element of diastolic CHF exacerbating current condition, so diuretic should be continued in my opinion. 4. Morbid obesity/RICKI/hypertension/hyperlipidemia/depression/iron deficiency anemia Complicates care, management, recovery and prognosis. Likely okay to continue with baseline medications as long as swallow is doing well. No i ndications for transfusion at this time. TIME: 31 minutes critical care time spent addressing patient's acute on chronic combined respiratory failure, possible pneumonia, metabolic encephalopathy, CHF, review of all data and collaboration with care team (5:30 AM to 6:30 AM) [id number]: [id number] Critical care first hour
--- NOTE | 2020-07-11 07:19 | PN_ITS ---
Patient Problems: Active and Suspected Problems Pneumonia (Acute) Respiratory failure (Acute) Reason for Visit: Follow-up on respiratory failure/pneumonia, chronic metabolic alkalosis Subjective: Patient was seen and examined. She is more awake, oriented x 3. On Bipap intermittently. Denies any chest pain, SOB. Objective: Physical exam: General: Alert, oriented x 3, cooperative, No apparent distress, Well developed, Well nourished, morbidly obese HEENT: Atraumatic, PERRLA, EOMI, Normocephalic, EAC Clear Oral:Dry Mucosa Neck: Supple, No JVD Lungs: Diminished - Severe Cardiovascular: Regular rate, Regular Rhythm, Normal S1, Normal S2,3/6 holosystolic murmur Abdomen: Bowel Sounds Present, Soft, Non Tender, Non-Distended, No Hepato- splenomegaly, Obese Extremities: No edema Skin: chronic dystrophic nails, tinea bilateral feet with long toenails Musculoskeletal: No Tenderness to Palpation of Joints or Extremities, No Muscle Wasting Lymphatic: No Cervical, Supraclavicular, or Inguinal Adenopathy Neurological: Cranial nerves II-XII grossly intact, grossly intact Psych/Mental Status: Flat Affect Vitals/I&O's: Vital Signs Temp Pulse Resp BP Pulse Ox 97.9 F 56 L 20 H 153/60 H 94 07/11/20 04:00 07/11/20 05:00 07/11/20 05:00 07/11/20 05:00 07/11/20 05:00 Oxygen Flow Rate (L/min) 5 Oxygen Delivery Method Bi-pap Weight: 172.6 kg Body Mass Index (BMI) 74.7 Intake and Output for Last 24 Hours 07/09/20 07/10/20 07/11/20 23:59 23:59 23:59 Intake Total 995 / 995 1720 / 1720 50 / 50 Output Total 400 / 400 4300 / 4300 225 / 225 Balance 595 / 595 -2580 / -2580 -175 / -175 Microbiology Past 72 Hours 07/09/20 15:56 Mucosa - Nose Respiratory Panel (PCR) - Final 07/09/20 17:30 Urine, Clean Catch Legionella Antigen - Final 07/09/20 17:30 Urine, Clean Catch Streptococcus pneumoniae Antigen (M - Final 07/09/20 12:44 Mucosa - Nose SARS-CoV-2 Antigen (Rapid) - Final Laboratory Results 07/09/20 14:49: Specimen Type ART, Sample Site L Radial, pH 7.12 L*, Bicarbonate Actual 47.0 H, Total CO2 > 50, Base Excess 18 H, O2 Saturation 95, ABG pCO2 146.0 H*, ABG pO2 108 H, José Antonio Test Positive, O2 Delivery Device NRB, Liter Flow 15.0 07/09/20 14:55: Specimen Type Cancelled, Sample Site Cancelled, pH Cancelled, Bicarbonate Actual Cancelled, Total CO2 Cancelled, Base Excess Cancelled, O2 Saturation Cancelled, O2 % Cancelled, ABG pCO2 Cancelled, ABG pO2 Cancelled, José Antonio Test Cancelled, Respiration Rate Cancelled, O2 Delivery Device Cancelled, Liter Flow Cancelled, Minute Volume Cancelled, Vent Mode Cancelled, Inspiratory Time Cancelled, Expiratory Time Cancelled, Tidal Volume Cancelled, POC PEEP Cancelled, POC Pressure Suppt Cancelled, Pressure Control Cancelled, Pressure High Cancelled, Pressure Low Cancelled, Time High Cancelled, Time Low Cancelled, EPAP Cancelled, IPAP Cancelled, Blood Gas Comments Cancelled, Blood Gas Notified Whom Cancelled, Blood Gas Notified Time Cancelled 07/10/20 11:56: Specimen Type ART, Sample Site L Brach, pH 7.24 L, Bicarbonate Actual 42.0 H, Total CO2 45, Base Excess 15 H, O2 Saturation 96, ABG pCO2 97.9 H*, ABG pO2 98, José Antonio Test Positive, O2 Delivery Device Cannula, Liter Flow 10.0 07/10/20 12:15: POC Glucose 173 H 07/10/20 17:54: POC Glucose 125 H 07/10/20 23:22: POC Glucose 123 H 07/11/20 04:05: WBC 6.4, RBC 3.09 L, Hgb 8.9 L, Hct 31.7 L, MCV 102.6 H, MCH 28.8, MCHC 28.1 L, RDW Std Deviation 58.3 H, RDW Coeff of Juliet 15.4 H, Plt Count 146 L, MPV 9.3, Immature Gran % (Auto) 2.400 H, Neut % (Auto) 73.3 H, Lymph % (Auto) 11.8 L, Cedar % (Auto) 8.2, Eos % (Auto) 3.8, Baso % (Auto) 0.5, Absolute Neuts (auto) 4.7, Absolute Lymphs (auto) 0.75 L, Nucleated RBC % 0 07/11/20 04:05: Sodium 143, Potassium 3.6, Chloride 101, Carbon Dioxide 37.0 H, Anion Gap 5, BUN 21 H, Creatinine 0.82, Estim Creat Clear Calc 211.22, Est GFR (MDRD) Af Amer 94, Est GFR (MDRD) Non-Af 77, BUN/Creatinine Ratio 25.7 H, Glucose 138 H, Calcium 8.5, Total Bilirubin 0.70, AST 29, ALT 35, Alkaline Phosphatase 68, Total Protein 6.8, Albumin 2.4 L, Globulin 4.4 H, Albumin/Globulin Ratio 0.5 L Current Medications Acetaminophen (Acetaminophen 325 Mg Tablet) 650 mg PO Q6H PRN PRN PRN Reason: Pain 1-10 or Fever Last Admin: 07/11/20 00:28 Dose: 650 mg Documented by: Acetazolamide (Acetazolamide 250 Mg Tablet) 125 mg PO TIDPC PENDING SALE TO [facility] Last Admin: 07/10/20 17:53 Dose: 125 mg Documented by: Albuterol Sulfate (Albuterol 2.5 Mg/3 Ml Vial.Neb.) 2.5 mg INHALATION Q2H PRN PRN PRN Reason: SOB/Wheezing Atorvastatin Calcium (Atorvastatin Calcium 20 Mg Tablet) 20 mg PO QHS PENDING SALE TO [facility] Last Admin: 07/10/20 21:08 Dose: 20 mg Documented by: Diltiazem HCl (Diltiazem Cd 240 Mg Capsule) 240 mg PO DAILY PENDING SALE TO [facility] Last Admin: 07/10/20 10:03 Dose: 240 mg Documented by: Enoxaparin Sodium (Enoxaparin 40 Mg/0.4 Ml Syringe) 40 mg SC BID PENDING SALE TO [facility] Last Admin: 07/10/20 21:08 Dose: 40 mg Documented by: Escitalopram Oxalate (Escitalopram Oxalate 10 Mg Tablet) 10 mg PO DAILY PENDING SALE TO [facility] Last Admin: 07/10/20 10:03 Dose: 10 mg Documented by: Furosemide (Furosemide 20 Mg Tablet) 20 mg PO BID@1000,1700 PENDING SALE TO [facility] Last Admin: 07/10/20 17:53 Dose: 20 mg Documented by: Gabapentin (Gabapentin 300 Mg Capsule) 300 mg PO QHS PENDING SALE TO [facility] Last Admin: 07/09/20 22:26 Dose: 300 mg Documented by: Hydralazine HCl (Hydralazine 20 Mg/Ml Vial) 5 mg IV Q4H PRN PRN PRN Reason: BLOOD PRESSURE Piperacillin Sod/Tazobactam (Sod 3.375 gm/ Sodium Chloride) 50 mls @ 12.5 mls/hr IV Q8 ANIA Stop: 07/16/20 22:01 Last Admin: 07/11/20 06:14 Dose: 12.5 mls/hr Documented by: Sodium Chloride () 250 mls @ 15 mls/hr IV .[id number] PRN PRN Reason: Saline Flush Sodium Chloride () 250 mls @ 15 mls/hr IV .[id number] PRN PRN Reason: Additional IVPB Infusion Insulin Human Lispro (Insulin Lispro 100 Unit/Ml Insuln.Pen) 0 unit SC Q6 ANIA; Protocol Last Admin: 07/11/20 05:42 Dose: Not Given Documented by: Multi-Ingredient Ointment (Mineral Oil/Petrolatum Cr 1.75oz Bottle) 1 applic TOPICAL PRN PRN; Protocol PRN Reason: DRY SKIN Last Admin: 07/11/20 00:31 Dose: 1 applicatio Documented by: Nystatin (Nystatin Powder 15gm Bottle) 1 applic TOPICAL BID ANIA; Protocol Last Admin: 07/10/20 21:08 Dose: 1 applicatio Documented by: Ondansetron HCl (Ondansetron 4 Mg/2 Ml Vial) 4 mg IV Q8H PRN PRN PRN Reason: NAUSEA/VOMITING Sodium Chloride (0.9% Saline Lock 10 Ml Syringe) 10 - 40 ml IV UD PRN PRN Reason: SALINE FLUSH STROKE Vital Signs/Narrative: Vital Signs Temp Pulse Resp BP Pulse Ox 07/11/20 05:00 56 L 20 H 153/60 H 94 07/11/20 04:00 97.9 F 57 L 18 148/62 H 95 07/11/20 03:33 64 07/11/20 03:21 65 20 H 95 Medical Necessity - Tobacco Use Smoking Status: Unknown if ever smoked Assessment/Plan All Active Problems Pneumonia (Acute) Respiratory failure (Acute) Ulcer of left thigh (Resolved) Sepsis (Resolved) HCAP (healthcare-associated pneumonia) (Resolved) UTI (urinary tract infection) (Resolved) Bacteremia due to Streptococcus (Resolved) CAP (community acquired pneumonia) (Resolved) Lower GI bleed (Resolved) Acute on chronic diastolic heart failure (Resolved) Acute bronchitis with asthma with acute exacerbation (Resolved) Acute bronchitis (Resolved) Atrial fibrillation with RVR (Resolved) Otitis externa (Resolved) Abdominal pain (Resolved) Abscess of left thigh (Resolved) Blood in stool (Resolved) Drug overdose (Resolved) History of necrotizing fasciitis (Resolved) Suicide attempt (Resolved) Wide-complex tachycardia (Resolved) 1. Acute on chronic combined respiratory failure secondary to HCAP/obesity hypoventilation syndrome, improved Managed on Bipap alternating with nasal canula oxygen, Pco2 improved from 146 to 72.3 CODE STATUS DNR CCA, no intubation Continue on BiPAP, will continue to follow, breathing treatments as needed 2. HCAP, MRSA PCR negative, on IV vancomycin, Zosyn and azithromycin Rapid Covid antigen is negative, respiratory panel negative, urine Legionella enterococcal antigen negative Chest x-ray shows multifocal pneumonia Continue on IV Zosyn for now Blood cultures are pending Continue with breathing treatments as needed 3. Acute metabolic encephalopathy likely secondary to #1 and #2 Urine tox was negative. Continue to hold gabapentin Will consider resuming gabapentin possibly tomorrow if better. 4. Hypertension, uncontrolled, continue Cardizem, will add hydralazine as needed 5. Type II DM/hyperlipidemia/depression/morbid obesity Home Metformin, Victoza and glipizide on hold Continue with insulin sliding scale and blood glucose checks ACHS 6. Chronic metabolic alkalosis/heart failure with preserved EF/severe pulmonary hypertension/paroxysmal atrial fibrillation, All remain stable, complicates care 7. DVT prophylaxis with Lovenox subcu BID Inpatient E&M: [id number] [facility] Hosp L3
[2020-07-11] MEDS: dilTIAZem CD 240 MG Capsule PO (09:05)
[2020-07-11] MEDS: AcetaZOLAMIDE 250 MG Tablet 125 MG PO ×3 (09:05→18:19)
[2020-07-11] MEDS: Escitalopram Oxalate 10 MG Tablet PO (09:06)
[2020-07-11] MEDS: Furosemide 20 MG Tablet PO ×2 (09:06→18:18)
[2020-07-11] MEDS: Nystatin Powder 15gm Bottle 1 APPLIC TOPICAL ×2 (09:06→21:09)
[2020-07-11] MEDS: Enoxaparin 40 MG/0.4 ML Syringe SC ×2 (09:06→21:08)
[2020-07-11 10:50] LABS: Allen Test Positive; Base Excess 14 mmol/L (-2 to +2); Bicarbonate 39.3 mmol/L (22-26); Blood Gas Specimen Type ART; O2 Delivery Device Cannula; PO2 56 mmHG (75-100); SITE L Brach; SO2 85 % (95-99); Total Carbon Dioxide 42 mmol/L; pCO2 72.3 mmHg (35-45); pH 7.34 (7.35-7.45)
--- NOTE | 2020-07-11 10:53 | CASEMGMT ---
Addendum entered by Danelle Macias 07/11/20 13:56: Updates faxed to [facility]. HOLLIE Browne Addendum entered by Danelle Macias 07/11/20 13:48: SW called [facility] again and left a second message. HOLLIE Browne Original Note: SW participated in ICU rounds. Pt may need Trilogy or Bipapp at the intermediate, physician inquired if pt can be on Trilogy at [facility]. SW called [facility] and left a message requesting a call back in regard to this. SW also spoke w/pt in room, offered support in light of her 's passing away last week. Pt states is okay right now. SW let pt know will continue to be available to speak w/pt if needed. Pt states understanding. HOLLIE Browne
--- NOTE | 2020-07-11 11:05 | CPS ---
ABG Critical values. Dr. Arreaga was notified
[2020-07-11 12:26] LABS: Bedside Glucose 140 mg/dL (70-110)
[2020-07-11] MEDS: Ferrous Sulfate 325 MG Tablet PO (13:20)
[2020-07-11] MEDS: Senna/Docusate Sodium 1 Tablet PO ×2 (13:20→21:08)
--- NOTE | 2020-07-11 15:01 | CASEMGMT ---
KHUSHBOO spoke w/Carmen at [facility], she states they can do bipapp for pt, or Trilogy but only on bipapp settings. KHUSHBOO spoke w/physician, the plan will be for her to go back to long term w/orders for bipapp. KHUSHBOO called [facility] and left Carmen a message letting her know this and encouraging her to order it today as pt may be ready for discharge. HOLLIE Browne
[2020-07-11 16:50] LABS: Bedside Glucose 141 mg/dL (70-110)
[2020-07-11] MEDS: Atorvastatin Calcium 20 MG Tablet PO (21:08)
[2020-07-11] MEDS: Insulin Lispro 100 UNIT/ML INSULN.PEN SC (21:20)
[2020-07-11] MEDS: Carvedilol 3.125 MG TABLET PO (21:21)
[2020-07-12] VITALS (15 sets, daily range): BP systolic 116–166; BP diastolic 48–67; PULSE 52–64; RESP 17–24; TEMP 36.1–36.6; O2SAT 89–97
[2020-07-12 02:21] LABS: Bedside Glucose 155 mg/dL (70-110)
--- NOTE | 2020-07-12 02:45 | CPS ---
Pt.'s FiO2 increased to 40%; increase in oxygen demands at this time
[2020-07-12 05:30] LABS: Absolute Lymphocyte Count 0.85 X10^3/uL (0.83-4.51); Absolute Neutrophil Count 4.6 X10^3/uL (2.0-7.7); Basophil# 0.04 X10^3/uL; Basophil% 0.6 % (0-1); Eosinophil# 0.25 X10^3/uL; Eosinophils% 3.9 % (0-5); Hematocrit 32.5 % (37-47); Hemoglobin 9.4 g/dL (12.0-15.0); Lymphocyte # 0.85 X10^3/ul (4.0); Lymphocyte % 13.4 % (19-41); Mean Corp Hgb Conc 28.9 g/dL (32-36); Mean Corpuscular Hgb 29.1 pg (27.0-32.0); Mean Corpuscular Volume 100.6 fL (81-99); Mean Platelet Vol. 9.2 fl (6.2-12.0); Monocyte# 0.43 X10^3/uL; Monocyte% 6.8 % (0-10); NRBC Flagged by Analyzer 0 % (0-5); Neutrophil # 4.57 X10^3/uL (2.7-7.7); Neutrophil % 72.1 % (47-70); Platelet Count 169 K/mm3 (150-450); RBC Distribution Width CV 15.3 % (11.6-14.6); RBC Distribution Width SD 56.3 fl (35.1-43.9); Red Blood Count 3.23 M/mm3 (4.2-5.4); White Blood Count 6.3 K/mm3 (4.4-11.0)
--- NOTE | 2020-07-12 05:36 | CPS ---
Pt.'s FiO2 decreased back to 30%
[2020-07-12 06:09] LABS: ALB/GLOB Ratio 0.6 RATIO (0.9-2.4); AST(SGOT) 25 U/L (15-37); Alanine Aminotransfer ALT/SGPT 34 U/L (13-56); Albumin, Serum 2.7 g/dL (3.2-5.0); Alkaline Phosphatase 68 U/L (45-117); Anion Gap 3 (5-15); BUN 22 mg/dL (7-18); BUN/Creat Ratio 24.9 RATIO (10-20); Calcium,Total 8.9 mg/dL (8.5-10.1); Chloride 104 mmol/L (98-107); Creatinine, Serum 0.88 mg/dL (0.55-1.02); EST Glomerular Filtration Rate 71 mL/min (>60); Est Glom Filt Rate - Afr Amer 85 mL/min (>60); Estimated Creatinine Clearance 193.05 ml/min; Globulin 4.6 g/dL (2.2-4.2); Glucose 158 mg/dL (74-106); Potassium 3.8 mmol/L (3.5-5.1); Protein, Total 7.3 g/dL (6.4-8.2); Sodium Level 142 mmol/L (136-145)
--- NOTE | 2020-07-12 07:16 | PCM.PN.INT ---
Subjective: Patient did well overnight. Patient was compliant with BiPAP therapy and woke up this morning feeling normal. Patient is not reporting any pain, nausea or vomiting. Patient is asking for a diet. Patient is requiring 4 L nasal cannula to maintain saturations, but does not report any cough or sensation of dyspnea. Objective: Patient was on AVAPS overnight. Average pressures appear to be 20/8 centimeters of water with a backup rate of 12. General: Alert, Oriented x3, Cooperative, No apparent distress, Well developed, Well nourished, - - Morbidly obese. Speaking in full sentences HEENT: Atraumatic, PERRLA, EOMI, Normocephalic, - - No scleral icterus or injection Oral: Moist Mucosa, No Gingival or Mucosal Lesions/ Ulcerations Neck: Supple, No JVD, No Nodes, Trachea Midline Lungs: No rhonchi, No wheeze, No rales, Diminished Cardiovascular: Normal S1, Normal S2, No murmurs, Bradycardic, No rub noted, No Gallop Abdomen: Bowel Sounds Present, Soft, Non Tender, Non-Distended, Obese Extremities: No clubbing, No cyanosis, Capillary Refill Less than 3 Seconds Skin: No rashes, No breakdown Musculoskeletal: No Tenderness to Palpation of Joints or Extremities Lymphatic: No Cervical, Supraclavicular, or Inguinal Adenopathy Neurological: Cranial nerves II-XII grossly intact, Neuro grossly intact, Motor Exam 5/5 strength throughout Psych/Mental Status: Alert and oriented to time, place, person, mood and affect Vital Signs Temp Pulse Resp BP Pulse Ox 36.1 C L 58 L 20 H 158/57 H 92 07/12/20 00:00 07/12/20 07:00 07/12/20 07:00 07/12/20 07:00 07/12/20 07:00 Oxygen Flow Rate (L/min) 4 Oxygen Delivery Method Nasal Cannula Weight: 169.3 kg Body Mass Index (BMI) 74.7 Intake and Output for Last 24 Hours 07/10/20 07/11/20 07/12/20 23:59 23:59 23:59 Intake Total 1720 / 1720 630 / 630 300 / 300 Output Total 4300 / 4300 2875 / 2875 150 / 150 Balance -2580 / -2580 -2245 / -2245 150 / 150 Labs (Last 48 Hours) 07/09/20 07/09/20 07/10/20 14:49 14:55 11:56 WBC RBC Hgb Hct MCV MCH MCHC RDW Std Deviation RDW Coeff of Juliet Plt Count MPV Immature Gran % (Auto) Neut % (Auto) Lymph % (Auto) Crowley % (Auto) Eos % (Auto) Baso % (Auto) Absolute Neuts (auto) Absolute Lymphs (auto) Nucleated RBC % Specimen Type ART Cancelled ART Sample Site L Radial Cancelled L Brach pH 7.12 L* Cancelled 7.24 L Bicarbonate Actual 47.0 H Cancelled 42.0 H Total CO2 > 50 Cancelled 45 Base Excess 18 H Cancelled 15 H O2 Saturation 95 Cancelled 96 O2 % Cancelled ABG pCO2 146.0 H* Cancelled 97.9 H* ABG pO2 108 H Cancelled 98 José Antonio Test Positive Cancelled Positive Respiration Rate Cancelled O2 Delivery Device NRB Cancelled Cannula Liter Flow 15.0 Cancelled 10.0 Minute Volume Cancelled Vent Mode Cancelled Inspiratory Time Cancelled Expiratory Time Cancelled Tidal Volume Cancelled POC PEEP Cancelled POC Pressure Suppt Cancelled Pressure Control Cancelled Pressure High Cancelled Pressure Low Cancelled Time High Cancelled Time Low Cancelled EPAP Cancelled IPAP Cancelled Blood Gas Comments Cancelled Blood Gas Notified Whom Cancelled Blood Gas Notified Time Cancelled Sodium Potassium Chloride Carbon Dioxide Anion Gap BUN Creatinine Estim Creat Clear Calc Est GFR (MDRD) Af Amer Est GFR (MDRD) Non-Af BUN/Creatinine Ratio Glucose Calcium Total Bilirubin AST ALT Alkaline Phosphatase Total Protein Albumin Globulin Albumin/Globulin Ratio POC Glucose 07/10/20 07/10/20 07/10/20 12:15 17:54 23:22 WBC RBC Hgb Hct MCV MCH MCHC RDW Std Deviation RDW Coeff of Juliet Plt Count MPV Immature Gran % (Auto) Neut % (Auto) Lymph % (Auto) Crowley % (Auto) Eos % (Auto) Baso % (Auto) Absolute Neuts (auto) Absolute Lymphs (auto) Nucleated RBC % Specimen Type Sample Site pH Bicarbonate Actual Total CO2 Base Excess O2 Saturation O2 % ABG pCO2 ABG pO2 José Antonio Test Respiration Rate O2 Delivery Device Liter Flow Minute Volume Vent Mode Inspiratory Time Expiratory Time Tidal Volume POC PEEP POC Pressure Suppt Pressure Control Pressure High Pressure Low Time High Time Low EPAP IPAP Blood Gas Comments Blood Gas Notified Whom Blood Gas Notified Time Sodium Potassium Chloride Carbon Dioxide Anion Gap BUN Creatinine Estim Creat Clear Calc Est GFR (MDRD) Af Amer Est GFR (MDRD) Non-Af BUN/Creatinine Ratio Glucose Calcium Total Bilirubin AST ALT Alkaline Phosphatase Total Protein Albumin Globulin Albumin/Globulin Ratio POC Glucose 173 H 125 H 123 H 07/11/20 07/11/20 07/11/20 04:05 04:05 10:43 WBC 6.4 RBC 3.09 L Hgb 8.9 L Hct 31.7 L MCV 102.6 H MCH 28.8 MCHC 28.1 L RDW Std Deviation 58.3 H RDW Coeff of Juliet 15.4 H Plt Count 146 L MPV 9.3 Immature Gran % (Auto) 2.400 H Neut % (Auto) 73.3 H Lymph % (Auto) 11.8 L Crowley % (Auto) 8.2 Eos % (Auto) 3.8 Baso % (Auto) 0.5 Absolute Neuts (auto) 4.7 Absolute Lymphs (auto) 0.75 L Nucleated RBC % 0 Specimen Type ART Sample Site L Brach pH 7.34 L Bicarbonate Actual 39.3 H Total CO2 42 Base Excess 14 H O2 Saturation 85 L O2 % ABG pCO2 72.3 H* ABG pO2 56 L José Antonio Test Positive Respiration Rate O2 Delivery Device Cannula Liter Flow 3.0 Minute Volume Vent Mode Inspiratory Time Expiratory Time Tidal Volume POC PEEP POC Pressure Suppt Pressure Control Pressure High Pressure Low Time High Time Low EPAP IPAP Blood Gas Comments Blood Gas Notified Whom Blood Gas Notified Time Sodium 143 Potassium 3.6 Chloride 101 Carbon Dioxide 37.0 H Anion Gap 5 BUN 21 H Creatinine 0.82 Estim Creat Clear Calc 211.22 Est GFR (MDRD) Af Amer 94 Est GFR (MDRD) Non-Af 77 BUN/Creatinine Ratio 25.7 H Glucose 138 H Calcium 8.5 Total Bilirubin 0.70 AST 29 ALT 35 Alkaline Phosphatase 68 Total Protein 6.8 Albumin 2.4 L Globulin 4.4 H Albumin/Globulin Ratio 0.5 L POC Glucose 07/11/20 07/11/20 07/11/20 12:20 16:49 21:03 WBC RBC Hgb Hct MCV MCH MCHC RDW Std Deviation RDW Coeff of Juliet Plt Count MPV Immature Gran % (Auto) Neut % (Auto) Lymph % (Auto) Crowley % (Auto) Eos % (Auto) Baso % (Auto) Absolute Neuts (auto) Absolute Lymphs (auto) Nucleated RBC % Specimen Type Sample Site pH Bicarbonate Actual Total CO2 Base Excess O2 Saturation O2 % ABG pCO2 ABG pO2 José Antonio Test Respiration Rate O2 Delivery Device Liter Flow Minute Volume Vent Mode Inspiratory Time Expiratory Time Tidal Volume POC PEEP POC Pressure Suppt Pressure Control Pressure High Pressure Low Time High Time Low EPAP IPAP Blood Gas Comments Blood Gas Notified Whom Blood Gas Notified Time Sodium Potassium Chloride Carbon Dioxide Anion Gap BUN Creatinine Estim Creat Clear Calc Est GFR (MDRD) Af Amer Est GFR (MDRD) Non-Af BUN/Creatinine Ratio Glucose Calcium Total Bilirubin AST ALT Alkaline Phosphatase Total Protein Albumin Globulin Albumin/Globulin Ratio POC Glucose 140 H 141 H 155 H 07/12/20 07/12/20 05:20 05:20 WBC 6.3 RBC 3.23 L Hgb 9.4 L Hct 32.5 L MCV 100.6 H MCH 29.1 MCHC 28.9 L RDW Std Deviation 56.3 H RDW Coeff of Juliet 15.3 H Plt Count 169 MPV 9.2 Immature Gran % (Auto) 3.200 H Neut % (Auto) 72.1 H Lymph % (Auto) 13.4 L Crowley % (Auto) 6.8 Eos % (Auto) 3.9 Baso % (Auto) 0.6 Absolute Neuts (auto) 4.6 Absolute Lymphs (auto) 0.85 Nucleated RBC % 0 Specimen Type Sample Site pH Bicarbonate Actual Total CO2 Base Excess O2 Saturation O2 % ABG pCO2 ABG pO2 José Antonio Test Respiration Rate O2 Delivery Device Liter Flow Minute Volume Vent Mode Inspiratory Time Expiratory Time Tidal Volume POC PEEP POC Pressure Suppt Pressure Control Pressure High Pressure Low Time High Time Low EPAP IPAP Blood Gas Comments Blood Gas Notified Whom Blood Gas Notified Time Sodium 142 Potassium 3.8 Chloride 104 Carbon Dioxide 35.0 H Anion Gap 3 L BUN 22 H Creatinine 0.88 Estim Creat Clear Calc 193.05 Est GFR (MDRD) Af Amer 85 Est GFR (MDRD) Non-Af 71 BUN/Creatinine Ratio 24.9 H Glucose 158 H Calcium 8.9 Total Bilirubin 0.50 AST 25 ALT 34 Alkaline Phosphatase 68 Total Protein 7.3 Albumin 2.7 L Globulin 4.6 H Albumin/Globulin Ratio 0.6 L POC Glucose Microbiology 07/09/20 13:15 Blood Culture (Wb) - Arm Left Blood Culture - Preliminary No growth in 48 hours. 07/09/20 13:03 Blood Culture (Wb) - Left Forearm Blood Culture - Preliminary No growth in 48 hours. Medical Necessity - Tobacco Use Smoking Status: Unknown if ever smoked Assessment/Plan All Active Problems Pneumonia (Acute) Respiratory failure (Acute) Ulcer of left thigh (Resolved) Sepsis (Resolved) HCAP (healthcare-associated pneumonia) (Resolved) UTI (urinary tract infection) (Resolved) Bacteremia due to Streptococcus (Resolved) CAP (community acquired pneumonia) (Resolved) Lower GI bleed (Resolved) Acute on chronic diastolic heart failure (Resolved) Acute bronchitis with asthma with acute exacerbation (Resolved) Acute bronchitis (Resolved) Atrial fibrillation with RVR (Resolved) Otitis externa (Resolved) Abdominal pain (Resolved) Abscess of left thigh (Resolved) Blood in stool (Resolved) Drug overdose (Resolved) History of necrotizing fasciitis (Resolved) Suicide attempt (Resolved) Wide-complex tachycardia (Resolved) RECOMMENDATIONS: 1. Okay to discontinue antibiotics from my perspective 2. Patient should be discharged on BiPAP 20/8 centimeters of water with a backup rate of 12 until sleep study 3. Patient will need a sleep study as an outpatient with transcutaneous CO2 monitoring 4. Okay to reinitiate baseline medications 5. Okay to discharge from a pulmonary perspective without follow-up unless requested IMPRESSIONS: 1. Acute on chronic combined respiratory failure secondary to probable obesity hypoventilation syndrome Unclear etiology. Patient with significant infiltrates on presentation that resolved with positive pressure only. Patient has not had any leukocytosis or fevers to suggest pneumonia. Okay to discontinue antibiotics from my perspective. Patient was placed on noninvasive ventilation overnight with normalization of mentation. Patient will need outpatient sleep study with transcutaneous monitoring. In the interim, patient should be placed on BiPAP 20/8 centimeters of water with a backup rate of 12. Okay to discharge from a pulmonary perspective. 2. Metabolic encephalopathy secondary to CO2 retention Resolved. Clinical suspicion for CO2 retention secondary to obesity hypoventilation syndrome. There does not appear to be any toxic metabolites or intentions for self-harm at this time. Patient does have low motivation at this time and may lead to increased obesity and exacerbation of condition. 3. Paroxysmal A. fib/history of diastolic CHF chronically Patient is rate controlled at this time. There is no signs or symptoms of complications. Okay to resume baseline diuretic/cardiac optimization. 4. Morbid obesity/RICKI/hypertension/hyperlipidemia/depression/iron deficiency anemia Complicates care, management, recovery and prognosis. Likely okay to continue with baseline medications as long as swallow is doing well. No indications for transfusion at this time. Inpatient E&M: [id number] [facility] Hosp L2
--- NOTE | 2020-07-12 08:27 | PCM.TXEXTCAR ---
- Diet 07/11/20 12:15 Diet: Cardiac: Calorie-Controlled Is pt able to select menu?: Yes How many daily calories?: 1800 calorie - Routine Orders/Code Status O2 Liters per Minute: 4 O2 Frequency: Continuous Keep PO Greater than or Equal to (%): 92 Routine Lab Work: CBC - within 3 days, BMP - within 3 days - Therapies Weight Bearing: Weight bearing as tolerated Physical Therapy: Eval and Treat Occupational Therapy: Eval and Treat - Allergies/Procedures Done in Hospital Allergies/Adverse Reactions: Allergies latex Allergy (Verified 12/21/18 22:08) Rash levofloxacin [From Levaquin] Adverse Reaction (Verified 12/21/18 22:08) SPEEDS UP MY HEART AND SHUTS DOWN MY KIDNEYS mushrooms Allergy (Uncoded 12/21/18 22:08) Anaphylaxis Procedures: None - Type of Care/Length of Stay Estimated LOS: Convalescent Care Less Than 30 days Type of Care Needed: Skilled Rehab Potential: Fair Prognosis: Fair - Additional Orders/Day of Discharge Additional Orders: Patient should be on BiPAP 20/8 centimeters of water with a backup rate of 12 until sleep study. She will need a sleep study in the outpatient with transcutaneous CO2 monitoring. Day of Discharge: 07/12/20 - Dietary and Speech Recommendations Dietitian Recommendations/Changes: cardiac, 1800 calorie controlled diet as tolerated - Follow Up Care Primary Care Physician: Merrick Mace MD [Primary Care Provider] - Please follow up with your Primary Care Physician in: within 2 weeks Please Follow Up With: Yariel Arreaga MD When: within 2 weeks
--- NOTE | 2020-07-12 08:29 | PCM.DC.SUM ---
Discharge Date and Diagnosis - Problem List Patient Problems: Active and Suspected Problems Pneumonia (Acute) Respiratory failure (Acute) Date of Admission: 07/09/20 Date of Discharge: 07/12/20 - Primary Discharge Diagnosis Acute Problems: Acute on chronic combined respiratory failure Bilateral infiltrate, likely related to obesity hypoventilation syndrome; acute HCAP ruled out Acute metabolic encephalopathy Obesity hypoventilation syndrome - Secondary Discharge Diagnosis Chronic Problems: Chronic Problems Yeast dermatitis (Chronic) PAF (paroxysmal atrial fibrillation) (Chronic) acute on chronic blood loss anemia (Chronic) Acute and chronic respiratory failure with hypoxia (Chronic) Shortness of breath (Chronic) Acute on chronic diastolic heart failure (Chronic) Metabolic alkalosis (Chronic) Morbid obesity (Chronic) GERD (gastroesophageal reflux disease) (Chronic) Irritable bowel syndrome (Chronic) Overactive bladder (Chronic) Chronic diastolic CHF (congestive heart failure) (Chronic) Type 2 diabetes mellitus (Chronic) HgbA1c 06/2016 6.5%. 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) Lymphedema (Chronic) Venous insufficiency (chronic) (peripheral) (Chronic) Hospital Course and Treatment Imaging Results: Clinical Impression(s) from Imaging Studies Chest X-Ray 07/09/20 13:10 IMPRESSION: Findings suspicious for multifocal pneumonia. Electronically Signed: Tabitha Bassett MD at 14:27 EST Tel , Service support , Chest X-Ray 07/11/20 06:00 IMPRESSION: Slight improvement. Multifocal infiltrates. Electronically Signed: Tabitha Bassett MD at 6:28 EST Tel , Service support , Pulmonology Operations: None Procedures: None Summary of Care Provided: The patient is a 55 year old F with super morbid obesity/obesity hypoventilation syndrome/type II DM, resident in a alf, nonambulatory who was admitted with altered mental status. Patient was found to be hypoxic and very lethargic. Her ABG showed pH of 7.13, PCO2 was 104. Her baseline PCO2 is in the 70s. Patient was a DNR CCA. She insisted on being DNR CCA. She was managed in ICU on BiPAP. Her chest x-ray showed multifocal infiltrates. She was started on antibiotics for HCAP. Blood cultures, COVID-19 rapid antigen as well as respiratory panel and urine Legionella and strep coccal antigen were all negative. Patient improved with BiPAP/AVAPS therapy. Pulmonology was following. Patient was discontinued off her antibiotics as it was felt she had improved too fast and was likely not to be secondary to pneumonia. This is believed to be due to obesity hypoventilation syndrome. She will follow-up with pulmonology in the outpatient for sleep study with transcutaneous CO2 monitoring. Patient was discharged on BiPAP to the alf. Patient Problems: Active and Suspected Problems Pneumonia (Acute) Respiratory failure (Acute) Subjective: On the day of discharge, patient was awake, interactive, oriented x3. Denied any new complains. Denied any fever or chills. Objective: Physical exam: General: Alert, oriented x 3, cooperative, No apparent distress, Well developed, Well nourished, morbidly obese HEENT: Atraumatic, PERRLA, EOMI, Normocephalic, EAC Clear Oral:Dry Mucosa Neck: Supple, No JVD Lungs: Diminished - Severe Cardiovascular: Regular rate, Regular Rhythm, Normal S1, Normal S2,3/6 holosystolic murmur Abdomen: Bowel Sounds Present, Soft, Non Tender, Non-Distended, No Hepato-splenomegaly, Obese Extremities: No edema Skin: chronic dystrophic nails, tinea bilateral feet with long toenails Musculoskeletal: No Tenderness to Palpation of Joints or Extremities, No Muscle Wasting Lymphatic: No Cervical, Supraclavicular, or Inguinal Adenopathy Neurological: Cranial nerves II-XII grossly intact, grossly intact Psych/Mental Status: Flat Affect - Physical Exam Vitals/I&O's: Vital Signs Temp Pulse Resp BP Pulse Ox 96.9 F L 58 L 20 H 158/57 H 94 07/12/20 00:00 07/12/20 07:00 07/12/20 07:00 07/12/20 07:00 07/12/20 07:07 Oxygen Flow Rate (L/min) 3 Oxygen Delivery Method Nasal Cannula Weight: 169.3 kg Body Mass Index (BMI) 74.7 Intake and Output for Last 24 Hours 07/10/20 07/11/20 07/12/20 23:59 23:59 23:59 Intake Total 1720 / 1720 630 / 630 300 / 300 Output Total 4300 / 4300 2875 / 2875 150 / 150 Balance -2580 / -2580 -2245 / -2245 150 / 150 Microbiology Past 72 Hours 07/09/20 13:15 Blood Culture (Wb) - Arm Left Blood Culture - Preliminary No growth in 48 hours. 07/09/20 13:03 Blood Culture (Wb) - Left Forearm Blood Culture - Preliminary No growth in 48 hours. 07/09/20 15:56 Mucosa - Nose Respiratory Panel (PCR) - Final 07/09/20 17:30 Urine, Clean Catch Legionella Antigen - Final 07/09/20 17:30 Urine, Clean Catch Streptococcus pneumoniae Antigen (M - Final 07/09/20 12:44 Mucosa - Nose SARS-CoV-2 Antigen (Rapid) - Final Laboratory Results 07/11/20 10:43: Specimen Type ART, Sample Site L Brach, pH 7.34 L, Bicarbonate Actual 39.3 H, Total CO2 42, Base Excess 14 H, O2 Saturation 85 L, ABG pCO2 72.3 H*, ABG pO2 56 L, José Antonio Test Positive, O2 Delivery Device Cannula, Liter Flow 3.0 07/11/20 12:20: POC Glucose 140 H 07/11/20 16:49: POC Glucose 141 H 07/11/20 21:03: POC Glucose 155 H 07/12/20 05:20: WBC 6.3, RBC 3.23 L, Hgb 9.4 L, Hct 32.5 L, MCV 100.6 H, MCH 29.1, MCHC 28.9 L, RDW Std Deviation 56.3 H, RDW Coeff of Juliet 15.3 H, Plt Count 169, MPV 9.2, Immature Gran % (Auto) 3.200 H, Neut % (Auto) 72.1 H, Lymph % (Auto) 13.4 L, [place] % (Auto) 6.8, Eos % (Auto) 3.9, Baso % (Auto) 0.6, Absolute Neuts (auto) 4.6, Absolute Lymphs (auto) 0.85, Nucleated RBC % 0 07/12/20 05:20: Sodium 142, Potassium 3.8, Chloride 104, Carbon Dioxide 35.0 H, Anion Gap 3 L, BUN 22 H, Creatinine 0.88, Estim Creat Clear Calc 193.05, Est GFR (MDRD) Af Amer 85, Est GFR (MDRD) Non-Af 71, BUN/Creatinine Ratio 24.9 H, Glucose 158 H, Calcium 8.9, Total Bilirubin 0.50, AST 25, ALT 34, Alkaline Phosphatase 68, Total Protein 7.3, Albumin 2.7 L, Globulin 4.6 H, Albumin/Globulin Ratio 0.6 L Current Medications Acetaminophen (Acetaminophen 325 Mg Tablet) 650 mg PO Q6H PRN PRN PRN Reason: Pain 1-10 or Fever Last Admin: 07/11/20 00:28 Dose: 650 mg Documented by: Acetazolamide (Acetazolamide 250 Mg Tablet) 125 mg PO TIDPC [facility] Last Admin: 07/11/20 18:19 Dose: 125 mg Documented by: Albuterol Sulfate (Albuterol 2.5 Mg/3 Ml Vial.Neb.) 2.5 mg INHALATION Q2H PRN PRN PRN Reason: SOB/Wheezing Atorvastatin Calcium (Atorvastatin Calcium 20 Mg Tablet) 20 mg PO QHS [facility] Last Admin: 07/11/20 21:08 Dose: 20 mg Documented by: Carvedilol (Carvedilol 3.125 Mg Tablet) 3.125 mg PO BID [facility] Last Admin: 07/11/20 21:21 Dose: 3.125 mg Documented by: Diltiazem HCl (Diltiazem Cd 240 Mg Capsule) 240 mg PO DAILY [facility] Last Admin: 07/11/20 09:05 Dose: 240 mg Documented by: Enoxaparin Sodium (Enoxaparin 40 Mg/0.4 Ml Syringe) 40 mg SC BID [facility] Last Admin: 07/11/20 21:08 Dose: 40 mg Documented by: Escitalopram Oxalate (Escitalopram Oxalate 10 Mg Tablet) 10 mg PO DAILY [facility] Last Admin: 07/11/20 09:06 Dose: 10 mg Documented by: Ferrous Sulfate (Ferrous Sulfate 325 Mg Tablet) 325 mg PO DAILYCM [facility] Last Admin: 07/11/20 13:20 Dose: 325 mg Documented by: Furosemide (Furosemide 20 Mg Tablet) 20 mg PO BID@1000,1700 [facility] Last Admin: 07/11/20 18:18 Dose: 20 mg Documented by: Gabapentin (Gabapentin 300 Mg Capsule) 300 mg PO QHS [facility] Last Admin: 07/09/20 22:26 Dose: 300 mg Documented by: Hydralazine HCl (Hydralazine 20 Mg/Ml Vial) 5 mg IV Q4H PRN PRN PRN Reason: BLOOD PRESSURE Piperacillin Sod/Tazobactam (Sod 3.375 gm/ Sodium Chloride) 50 mls @ 12.5 mls/hr IV Q8 [facility] Stop: 07/13/20 22:01 Last Admin: 07/12/20 05:27 Dose: 12.5 mls/hr Documented by: Sodium Chloride () 250 mls @ 15 mls/hr IV .[id number] PRN PRN Reason: Saline Flush Last Infusion: 07/12/20 06:02 Dose: Infused Documented by: Sodium Chloride () 250 mls @ 15 mls/hr IV .[id number] PRN PRN Reason: Additional IVPB Infusion Insulin Human Lispro (Insulin Lispro 100 Unit/Ml Insuln.Pen) 0 unit SC [facility]; Protocol Last Admin: 07/11/20 21:20 Dose: 1 u Documented by: Multi-Ingredient Ointment (Mineral Oil/Petrolatum Cr 1.75oz Bottle) 1 applic TOPICAL PRN PRN; Protocol PRN Reason: DRY SKIN Last Admin: 07/11/20 00:31 Dose: 1 applicatio Documented by: Nystatin (Nystatin Powder 15gm Bottle) 1 applic TOPICAL BID [facility]; Protocol Last Admin: 07/11/20 21:09 Dose: 1 applicatio Documented by: Ondansetron HCl (Ondansetron 4 Mg/2 Ml Vial) 4 mg IV Q8H PRN PRN PRN Reason: NAUSEA/VOMITING Senna/Docusate Sodium (Senna/Docusate Sodium 1 Tablet) 1 tablet PO BID [facility] Last Admin: 07/11/20 21:08 Dose: 1 tablet Documented by: Sodium Chloride (0.9% Saline Lock 10 Ml Syringe) 10 - 40 ml IV UD PRN PRN Reason: SALINE FLUSH Discharge Diet: Low fat/ Low Cholesterol, 2000 mg Sodium Diet Discharge Activity: Return to Normal Activity Home Medications: Medications to take at Discharge Diltiazem HCl [Diltiazem 24Hr ER (Cd)] 240 mg PO DAILY 07/21/18 Furosemide [Lasix] 20 mg PO BID 07/21/18 Gabapentin [Neurontin] 300 mg PO QHS 07/21/18 Multivitamin with Minerals [Multiple Vitamin] 1 tab PO DAILY 07/21/18 Glipizide Xl 2.5 mg PO BID 12/22/18 Metformin HCl 1,000 mg PO BREAKFAST 12/22/18 AcetaAZOLAMIDE [Diamox] 125 mg PO TID 07/09/20 Atorvastatin Calcium [Lipitor] 20 mg PO QHS 07/09/20 Escitalopram Oxalate 10 mg PO DAILY 07/09/20 Fenofibrate,Micronized [Fenofibrate] 200 mg PO QHS 07/09/20 Ferrous Sulfate 324 mg PO QHS 07/09/20 Liraglutide [Victoza] 1.8 mg SQ DAILY 07/09/20 Acetaminophen [Tylenol Tablet] 650 mg PO Q6H PRN PRN tab 07/12/20 Primary Care Physician: Merrick Mace MD [Primary Care Provider] - Please follow up with your Primary Care Physician in: within 2 weeks Please Follow Up With: Yariel Arreaga MD When: within 2 weeks Disposition: Residential facility Minutes spent on discharge:: 40 Patient Condition:: Stable Medical Necessity - Tobacco Use Smoking Status: Unknown if ever smoked Tobacco Use: Non-smoker Meaningful Use Info Meaningful Use Diagnoses (Choose all that apply): None applicable Inpatient E&M: 23593 Disch Hosp
[2020-07-12] MEDS: Insulin Lispro 100 UNIT/ML INSULN.PEN SC (08:40)
[2020-07-12] MEDS: Enoxaparin 40 MG/0.4 ML Syringe SC (08:41)
[2020-07-12] MEDS: AcetaZOLAMIDE 250 MG Tablet 125 MG PO (08:41)
[2020-07-12] MEDS: dilTIAZem CD 240 MG Capsule PO (08:41)
[2020-07-12] MEDS: Furosemide 20 MG Tablet PO (08:42)
[2020-07-12] MEDS: Escitalopram Oxalate 10 MG Tablet PO (08:42)
[2020-07-12] MEDS: Nystatin Powder 15gm Bottle 1 APPLIC TOPICAL (08:43)
[2020-07-12] MEDS: Ferrous Sulfate 325 MG Tablet PO (08:43)
[2020-07-12] MEDS: Senna/Docusate Sodium 1 Tablet PO (08:43)
[2020-07-12 08:51] LABS: Bedside Glucose 158 mg/dL (70-110)
--- NOTE | 2020-07-12 09:01 | PHA.DC.MR ---
Pharmacy Service has performed discharge medication reconciliation for this patient. The patient's discharge medication list was reviewed for discrepancies and discrepancies were resolved. Home Medications Diltiazem HCl [Diltiazem 24Hr ER (Cd)] 240 mg PO DAILY 07/21/18 Furosemide [Lasix] 20 mg PO BID 07/21/18 Gabapentin [Neurontin] 300 mg PO QHS 07/21/18 Multivitamin with Minerals [Multiple Vitamin] 1 tab PO DAILY 07/21/18 Glipizide Xl 2.5 mg PO BID 12/22/18 Metformin HCl 1,000 mg PO BREAKFAST 12/22/18 AcetaAZOLAMIDE [Diamox] 125 mg PO TID 07/09/20 Atorvastatin Calcium [Lipitor] 20 mg PO QHS 07/09/20 Escitalopram Oxalate 10 mg PO DAILY 07/09/20 Fenofibrate,Micronized [Fenofibrate] 200 mg PO QHS 07/09/20 Ferrous Sulfate 324 mg PO QHS 07/09/20 Liraglutide [Victoza] 1.8 mg SQ DAILY 07/09/20 Acetaminophen [Tylenol Tablet] 650 mg PO Q6H PRN PRN tab 07/12/20
--- NOTE | 2020-07-12 10:17 | CASEMGMT ---
Social Work Pt is ready for discharge today and plan is return to [facility]. Phone call to [facility] and spoke with Yvonne. SW informed pt would be returning today with orders for bipap at sleep. Yvonne confirms they can accommodate this. Orders faxed to [facility]. Transportation arranged with [facility] for 11:15 bead picker by cot. KHUSHBOO met with pt and informed of this and she is understanding and agreeable to discharge. SW offered to call pts daughter to update on discharge plan. Pt refuses stating dgt works and will not be able to take a call at this time. SW offered to leave message. Pt again refused stating she will call dgt once she returns to [facility] and pt is off work. Phone call to [facility] and updated on d/c time. Nursing updated on discharge time. RADHA Pelayo
== END 2020-07-12 11:30 | disposition skilled nursing facility (03) | DRG 193 ==
LOC: ED 14:20 → ICU 16:28
PROVIDERS: Admitting Provider Internal Medicine; Emergency Provider Emergency Medicine; PCP Family Medicine; Visit Provider Internal Medicine
DX: J18.9 Pneumonia, unspecified organism (principal); J96.22 Acute and chronic respiratory failure with hypercapnia; I50.33 Acute on chronic diastolic (congestive) heart failure; G93.41 Metabolic encephalopathy; J96.21 Acute and chronic respiratory failure with hypoxia; E66.2 Morbid (severe) obesity with alveolar hypoventilation; Z68.45 Body mass index [BMI] 70 or greater, adult; E87.4 Mixed disorder of acid-base balance; Y95 Nosocomial condition; D50.9 Iron deficiency anemia, unspecified; I11.0 Hypertensive heart disease with heart failure; E11.42 Type 2 diabetes mellitus with diabetic polyneuropathy; E78.5 Hyperlipidemia, unspecified; F32.9 Major depressive disorder, single episode, unspecified; I27.20 Pulmonary hypertension, unspecified; I48.0 Paroxysmal atrial fibrillation; I87.2 Venous insufficiency (chronic) (peripheral); K21.9 Gastro-esophageal reflux disease without esophagitis; K58.9 Irritable bowel syndrome, unspecified; M48.00 Spinal stenosis, site unspecified; I89.0 Lymphedema, not elsewhere classified; I49.3 Ventricular premature depolarization; J45.909 Unspecified asthma, uncomplicated; N32.81 Overactive bladder; Z66 Do not resuscitate; Z87.891 Personal history of nicotine dependence; Z87.440 Personal history of urinary (tract) infections; Z87.19 Personal history of other diseases of the digestive system; Z79.84 Long term (current) use of oral hypoglycemic drugs; Z79.899 Other long term (current) drug therapy; Z86.19 Personal history of other infectious and parasitic diseases
CPT/HCPCS: 36600; 71045; 80048; 80053; 80307; 81001; 82803; 82962; 83735; 83880; 84100; 84443; 84484; 85025; 85379; 87040; 87426; 87449; 87633; 87635; 87641; 93005; 94002; 94003; 99251; 99285; J7040; J7050; A4216; G0463; U0002

== ENCOUNTER → 2021-04-05 02:00 | Outpatient (REF) | payer MEDICARE, MEDICAID, SELFPAY | LOC: OLS.SW500 02:00 | PROVIDERS: PCP Family Medicine; Visit Provider Family Medicine | DX: H04.2 Epiphora (principal) | CPT/HCPCS: 87070; 87077; 87186; 87205 ==

== ENCOUNTER → 2021-05-22 04:00 | Outpatient (REF) | payer MEDICARE, MEDICAID, SELFPAY ==
[2021-05-22 07:57] LABS: Hemoglobin A1c 6.1 % (3.8-5.6)
== END ==
LOC: OLS.SW500 04:00
PROVIDERS: PCP Family Medicine; Visit Provider Family Medicine
DX: E11.9 Type 2 diabetes mellitus without complications (principal)
CPT/HCPCS: 36415; 83036

== ENCOUNTER 2021-09-09 00:13 | Inpatient (IN) | payer MEDICARE, MEDICAID, SELFPAY ==
[2021-09-09] VITALS (24 sets, daily range): BP systolic 90–150; BP diastolic 62–93; PULSE 78–117; RESP 14–25; TEMP 36.3–36.6; O2SAT 92–99; BMI 61.0; BMI 69.5
--- NOTE | 2021-09-09 00:20 | EDS_ITS ---
HPI History of Present Illness Chief Complaint: Shortness of Breath Informant: EMS and SNF Limited: stupor Onset/Context/Timing Onset: Today Narrative Narrative: Patient presents with shortness of breath that became worse tonight. Patient lives at an extended care facility and is DNR comfort care only. Staff noticed that the patient was having a harder time breathing and was less respons anabela tonight. Patient is nonverbal and is a poor historian. PFSH PFSH Home Medications Multiple Vitamin-Minerals 1 tab PO DAILY 07/21/18 [History Last Taken Unknown] diltiazem HCl 240 mg PO DAILY 07/21/18 [History Last Taken Unknown] furosemide 20 mg PO BID 07/21/18 [History Last Taken Unknown] gabapentin 300 mg PO QHS 07/21/18 [History Last Taken Unknown] Glipizide Xl 2.5 mg PO BID 12/22/18 [History Last Taken Unknown] metformin 1,000 mg PO BREAKFAST 12/22/18 [History Last Taken Unknown] acetazolamide 125 mg PO TID 07/09/20 [History Last Taken Unknown] atorvastatin 20 mg PO QHS 07/09/20 [History Last Taken Unknown] escitalopram oxalate 10 mg PO DAILY 07/09/20 [History Last Taken Unknown] fenofibrate micronized 200 mg PO QHS 07/09/20 [History Last Taken Unknown] ferrous sulfate 324 mg PO QHS 07/09/20 [History Last Taken Unknown] acetaminophen 650 mg PO Q4H PRN PRN 09/09/21 [History Last Taken Unknown] albuterol sulfate [Ventolin HFA] 2 puff INHALATION Q4H PRN 09/09/21 [History Last Taken Unknown] cetirizine [Zyrtec] 10 mg PO DAILY 09/09/21 [History Last Taken Unknown] dulaglutide [Trulicity] 1.5 mg SUBCUT QWEEK 09/09/21 [History Last Taken Unknown] oseltamivir [Tamiflu] 75 mg PO BID 09/09/21 [History Last Taken Unknown] pantoprazole [Protonix] 40 mg PO DAILY 09/09/21 [History Last Taken Unknown] Allergy/AdvReac Type Severity Reaction Status Date / Time latex Allergy Rash Verified 12/21/18 22:08 levofloxacin [From Levaquin] AdvReac SPEEDS UP Verified 12/21/18 22:08 MY HEART AND SHUTS DOWN MY KIDNEYS mushrooms Allergy Anaphylaxis Uncoded 12/21/18 22:08 Social History Smoking Status: Unknown if ever smoked ROS ROS ED Review of Systems ROS Unobtainable: due to mental status EXAM Physical Exam Const Vital Signs: 09/09/21 00:15 09/09/21 00:18 09/09/21 00:21 Temperature 97.8 F 97.4 F L Temperature Source Temporal Temporal Pulse Rate 92 102 H Respiratory Rate 18 18 Respiratory Effort Labored Respiratory Pattern Blood Pressure 114/68 114/68 Blood Pressure Mean 83 83 Pulse Ox 95 95 Oxygen Delivery Method Simple Mask Simple Mask Simple Mask Oxygen Flow Rate (L/min) 10 10 10 Fraction of Inspired Oxygen (FIO2) 09/09/21 00:45 09/09/21 02:04 09/09/21 02:18 Temperature 97.9 F Temperature Source Temporal Pulse Rate 80 88 78 Respiratory Rate 23 H 19 H 17 Respiratory Effort Respiratory Pattern Normal Blood Pressure 126/72 H 114/67 Blood Pressure Mean 90 82 Pulse Ox 93 92 92 Oxygen Delivery Method Room Air Room Air Oxygen Flow Rate (L/min) Fraction of Inspired Oxygen (FIO2) 40 09/09/21 03:00 09/09/21 03:02 09/09/21 03:20 Temperature Temperature Source Pulse Rate 108 H 83 Respiratory Rate 22 H 17 Respiratory Effort Respiratory Pattern Blood Pressure 122/68 H Blood Pressure Mean 86 Pulse Ox 98 93 Oxygen Delivery Method Bi-pap Oxygen Flow Rate (L/min) 60 Fraction of Inspired Oxygen (FIO2) 40 60 09/09/21 04:00 09/09/21 05:00 09/09/21 06:00 Temperature Temperature Source Pulse Rate 88 99 98 Respiratory Rate 22 H 21 H 23 H Respiratory Effort Respiratory Pattern Blood Pressure 107/73 104/65 118/62 Blood Pressure Mean 84 78 80 Pulse Ox 98 93 98 Oxygen Delivery Method Bi-pap Bi-pap Bi-pap Oxygen Flow Rate (L/min) 60 60 Fraction of Inspired Oxygen (FIO2) 60 09/09/21 06:35 09/09/21 07:00 Temperature Temperature Source Pulse Rate 104 H 105 H Respiratory Rate 16 20 H Respiratory Effort Respiratory Pattern Blood Pressure 102/78 Blood Pressure Mean 86 Pulse Ox 97 96 Oxygen Delivery Method Bi-pap Oxygen Flow Rate (L/min) Fraction of Inspired Oxygen (FIO2) 60 60 Positive well nourished, well developed and obese General Appearance ED: well developed Nutritional Appearance: obese HEENT Reports moist mucous membranes Resp Auscultation: diminished lung sounds diffuse Cardio regular rhythm GI Auscultation: normoactive bowel sounds Palpation: soft Neuro oriented x3, CN's II-XII intact bilaterally and no sensory deficits noted Sensorium / Orientation: alert Motor Exam: strength 5/5 throughout MDM MDM MDM Narrative Medical decision making narrative: Portable chest x-ray was obtained. There is 1 view. On my interpretation, there is cardiomegaly. There is bilateral hilar prominence prominent lung markings in the lower lung bailey. Bony thorax is normal. Radiologist also interpreted the x-ray and agrees. CBC shows a mild anemia with a hemoglobin of 10.7 and hematocrit 36.7. Platelets were 149. Comprehensive metabolic profile shows a BUN of 34 and creatinine of 1.25. CO2 is elevated at 38. BNP was elevated at 363.4. Initial arterial blood gas shows a pH of 7.114 with a PCO2 of 140 and a PO2 of 122.6, bicarb of 44, and O2 saturation of 96.3% on nonrebreather mask. Patient was started on BiPAP. Patient was given a dose of Lasix. Repeat blood gas on BiPAP shows a pH of 7.192, PCO2 of 110, PO2 of 54.3, bicarb of 42.2, and O2 sat of 76.2%. Patient had no improvement of her mental status. Patient is a DNR comfort care only and also did not want hospitalization. Daughter who is the power of disability benefits specialist was contacted. She requested that hospice be contacted and patient be placed in hospice. Hospice was contacted. They will be unable to take the patient until tomorrow. Family requested that the patient be admitted to the hospital until that time. Case was discussed with the hospitalist. She will admit the patient to her service. Family is agreeable with plan. Lab Data Attestation: I reviewed the patient's lab results. Labs: Laboratory Results - last 24 hr 09/09/21 09/09/21 09/09/21 00:30 00:30 00:30 WBC 8.1 RBC 3.74 L Hgb 10.7 L Hct 36.7 L MCV 98.1 MCH 28.6 MCHC 29.2 L RDW Std Deviation 55.1 H RDW Coeff of Juliet 15.4 H Plt Count 149 L MPV 10.2 Immature Gran % (Auto) 1.600 H Neut % (Auto) 90.3 H Lymph % (Auto) 1.7 L [place] % (Auto) 4.3 Eos % (Auto) 1.7 Baso % (Auto) 0.4 Absolute Neuts (auto) 7.3 Absolute Lymphs (auto) 0.14 L Nucleated RBC % 0 Differential Comment SCANNED Sodium 141 Potassium 4.5 Chloride 99 Carbon Dioxide 38.0 H Anion Gap 4 L BUN 34 H Creatinine 1.25 H Estim Creat Clear Calc 43.40 Est GFR (MDRD) Af Amer 57 L Est GFR (MDRD) Non-Af 47 L BUN/Creatinine Ratio 27.2 H Glucose 200 H Calcium 8.4 L Total Bilirubin 0.70 AST 82 H ALT 48 Alkaline Phosphatase 75 B-Natriuretic Peptide 363.4 H Total Protein 7.9 Albumin 3.3 Globulin 4.6 H Albumin/Globulin Ratio 0.7 L ABG Data ABG results: ABG 09/09/21 09/09/21 00:31 04:16 Specimen Type ART ART Sample Site L Radial L Radial pH 7.11 L* 7.19 L* Bicarbonate Actual 44.9 H 42.2 H Total CO2 49 46 Base Excess 16 H 14 H O2 Saturation 96 76 L O2 % 40 ABG pCO2 140.0 H* 110.0 H* ABG pO2 123 H 54 L José Antonio Test Positive Positive Respiration Rate 14 O2 Delivery Device Oxy Mask BiPAP Liter Flow 10.0 Tidal Volume 500 POC PEEP 8 Crit Call To/Read Back Yes Yes Blood Gas Notified Whom er doc Radiography Chest X-Ray - ED: 1 View, Read by ED Physician, Read by Radiologist, Chronic Changes and Cardiomegaly Diagnostic Testing: Clinical Impression(s) from Imaging Studies Chest X-Ray 09/09/21 01:00 Discharge Plan Triage Chief Complaint: Shortness of Breath ED Provider: Mike Snyder Dx/Rx/DC Orders Clinical Impression: Respiratory failure with hypoxia and hypercapnia, Morbid (severe) obesity with alveolar hypoventilation Prescriptions: No Action diltiazem HCl 240 MG capsule,extended release 24hr 240 mg PO DAILY RF: 0 furosemide 20 MG tablet 20 mg PO BID RF: 0 Multiple Vitamin-Minerals 1 EACH tablet 1 tab PO DAILY RF: 0 gabapentin 300 MG capsule 300 mg PO QHS RF: 0 metformin 1,000 MG tablet 1,000 mg PO BREAKFAST RF: 0 Glipizide Xl 2.5 mg PO BID RF: 0 atorvastatin 20 MG tablet 20 mg PO QHS RF: 0 acetazolamide 250 MG tablet 125 mg PO TID RF: 0 fenofibrate micronized 200 MG capsule 200 mg PO QHS RF: 0 escitalopram oxalate 10 MG tablet 10 mg PO DAILY RF: 0 ferrous sulfate 324 MG tablet,delayed release (DR/EC) 324 mg PO QHS RF: 0 acetaminophen 325 MG tablet 650 mg PO Q4H PRN PRN (Reason: Pain 1-10 Or Fever) RF: 0 pantoprazole [Protonix] 40 mg Tablet,Delayed Release (Dr/Ec) 40 mg PO DAILY RF: 0 oseltamivir [Tamiflu] 75 mg Capsule 75 mg PO BID RF: 0 albuterol sulfate [Ventolin HFA] 90 mcg/actuation Hfa Aerosol Inhaler 2 puff INHALATION Q4H PRN (Reason: Shortness Of Breath) RF: 0 Zyrtec 10 mg Capsule 10 mg PO DAILY RF: 0 Trulicity 1.5 mg/0.5 mL Pen Injector 1.5 mg SUBCUT QWEEK RF: 0 Primary Care Provider: Merrick Mace Referrals: Merrick Mace MD [Primary Care Provider] - Disposition Disposition: Acute Care Hospital [facility]
[2021-09-09 00:36] LABS: Allen Test Positive; Base Excess 16 mmol/L (-2 to +2); Bicarbonate 44.9 mmol/L (22-26); Blood Gas Specimen Type ART; PO2 123 mmHG (75-100); SITE L Radial; SO2 96 % (95-99); Total Carbon Dioxide 49 mmol/L; pH 7.11 (7.35-7.45)
--- NOTE | 2021-09-09 00:54 | CPS ---
critical abg results handed to dr lerma- pt placed on bipap
[2021-09-09 00:55] LABS: Absolute Lymphocyte Count 0.14 X10^3/uL (0.83-4.51); Absolute Neutrophil Count 7.3 X10^3/uL (2.0-7.7); Basophil# 0.03 X10^3/uL; Basophil% 0.4 % (0-1); Eosinophil# 0.14 X10^3/uL; Eosinophils% 1.7 % (0-5); Hematocrit 36.7 % (37-47); Hemoglobin 10.7 g/dL (12.0-15.0); Lymphocyte # 0.14 X10^3/ul (0.83-4.51); Lymphocyte % 1.7 % (19-41); Mean Corp Hgb Conc 29.2 g/dL (32-36); Mean Corpuscular Hgb 28.6 pg (27.0-32.0); Mean Corpuscular Volume 98.1 fL (81-99); Mean Platelet Vol. 10.2 fl (6.2-12.0); Monocyte# 0.35 X10^3/uL; Monocyte% 4.3 % (0-10); NRBC Flagged by Analyzer 0 % (0-5); Neutrophil # 7.27 X10^3/uL (2.7-7.7); Neutrophil % 90.3 % (47-70); POSITIVE DIFFERENTIAL YES; Platelet Count 149 K/mm3 (150-450); RBC Distribution Width CV 15.4 % (11.6-14.6); RBC Distribution Width SD 55.1 fl (35.1-43.9); Red Blood Count 3.74 M/mm3 (4.2-5.4); White Blood Count 8.1 K/mm3 (4.4-11.0)
[2021-09-09 01:00] LABS: BNP,B-Type NATRIURETIC PEPTIDE 363.4 pg/mL (0-100)
--- NOTE | 2021-09-09 01:00 | RAD_ITS ---
EXAM: AP chest. HISTORY: Dyspnea TECHNIQUE: XR Chest 1 View. 2 views including semiupright portable exam. COMPARISON: July 11, 2020 and July 09, 2020, and December 21, 2018. Prior exam in 2019 mentioned chronic interstitial changes. LIMITATIONS: Mild patient rotation to the right. HEART: Normal size. TUBES/LINES: None. LUNGS: The hemidiaphragms are well seen on the exam with semiupright positioning. Mild increased vascular markings and interstitial markings in the lung bases and perihilar vessels. Similar to December 21, 2018. The lungs also appear similar to July 11, 2020. PLEURA: Nonvisualization of the lateral costophrenic angles MEDIASTINUM: No obvious perihilar mass, hilar regions are not well seen. BONES/SOFT TISSUES: Normal. OTHER: Normal. IMPRESSION: Similar appearance of cardiomegaly, bilateral hilar prominence and prominent lung markings in the lower lung bailey compared to July 11, 2020. Possibly subtle basilar opacities but overall similar to prior exam. Electronically Signed: Katherine Thompson MD at 1:34 EDT , RAD/Chest 1 View (Portable)
[2021-09-09 01:05] LABS: Differential Indicated SCAN CRITERIA MET
[2021-09-09 01:09] LABS: ALB/GLOB Ratio 0.7 RATIO (0.9-2.4); AST(SGOT) 82 U/L (15-37); Alanine Aminotransfer ALT/SGPT 48 U/L (13-56); Albumin, Serum 3.3 g/dL (3.2-5.0); Alkaline Phosphatase 75 U/L (45-117); Anion Gap 4 (5-15); BUN 34 mg/dL (7-18); BUN/Creat Ratio 27.2 RATIO (10-20); Calcium,Total 8.4 mg/dL (8.5-10.1); Chloride 99 mmol/L (98-107); Creatinine, Serum 1.25 mg/dL (0.55-1.02); EST Glomerular Filtration Rate 47 mL/min (>60); Est Glom Filt Rate - Afr Amer 57 mL/min (>60); Globulin 4.6 g/dL (2.2-4.2); Glucose 200 mg/dL (74-106); Potassium 4.5 mmol/L (3.5-5.1); Protein, Total 7.9 g/dL (6.4-8.2); Sodium Level 141 mmol/L (136-145)
[2021-09-09 01:27] LABS: Differential Comment SCANNED
--- NOTE | 2021-09-09 03:20 | CPS ---
increased fio2 to 60% after abg results-maybe mixed sample-critical abg results handed to dr lerma
[2021-09-09 03:21] LABS: Allen Test Positive; Base Excess 14 mmol/L (-2 to +2); Bicarbonate 42.2 mmol/L (22-26); Blood Gas Specimen Type ART; FI02 40; O2 Delivery Device BiPAP; PEEP 8; PO2 54 mmHG (75-100); RR 14; SITE L Radial; SO2 76 % (95-99); Total Carbon Dioxide 46 mmol/L; Vt 500; pH 7.19 (7.35-7.45)
--- NOTE | 2021-09-09 04:03 | ED.RN ---
PER , PT'S DAUGHTER INFORMED OF PT'S CONDITION AND CLARIFIED WHAT SHE PLAN OF CARE SHE WOULD LIKE FOR HER MOTHER,HOSPICE,ADMISSION. PT'S DAUGHTER,CR, STATED THAT SHE WOULD LIKE HOSPICE.. VERIFIED REQUEST WITH ROSIO CALZADA. AWARE
[2021-09-09] MEDS: Furosemide 40 MG/4 ML Vial IV (04:27)
--- NOTE | 2021-09-09 06:23 | ED.RN ---
Addendum entered by Suyapa Hoffmann 09/09/21 06:34: update given. Hospice going to consult respiratory to determine BIPAP capabilities. Original Note: HOSPICE CONSULTED AT 0410. CALLED BACK FOR UPDATE AT 0623. NO UPDATE.
--- NOTE | 2021-09-09 07:06 | ED.RN ---
daughter frandy notified that pt can not go to hospice today because of bipap. They will have it set up tomorrow. . They wish for her to be adimtted. notified
--- NOTE | 2021-09-09 07:35 | PCM.HP.STD ---
HPI - General General Date of Admission: 09/09/21 Date of Service: 09/09/21 HPI Narrative ELAYNE BASSETT, is a 56 F who presents with perceived shortness of breath. Patient is resident in a long-term. Her CODE STATUS is DNR CC. Patient was seen on BiPAP. She is alert oriented to herself and not to place or time. Not able to obtain history. Later on informed the patient apparently tested positive for acute influenza A in the long-term. Cannot Vitals on admission show blood pressure 129/88, heart rate 85, pulse ox 97, temperature 97.6 F. WBC 8.1, Hb 10.7, Plt 149. Ph 7. 19, PCO2 is 110, PO2 54, sodium is 141, potassium 4.5, chloride 99, bicarbonate 38, BUN 34, creatinine 1.25, BN peptide is 363.4. Chest x-ray shows cardiomegaly, bilateral hilar prominence. [facility] Medical History (Updated 09/09/21 @ 12:[address] Vidhya Kennedy MD) Chronic diastolic CHF (congestive heart failure) Morbid (severe) obesity with alveolar hypoventilation Morbid obesity Obesity hypoventilation syndrome PAF (paroxysmal atrial fibrillation) Respiratory failure with hypoxia and hypercapnia Type 2 diabetes mellitus Medical History unable to obtain Home Medications Multiple Vitamin-Minerals 1 tab PO DAILY 07/21/18 [History Last Taken Unknown] diltiazem HCl 240 mg PO DAILY 07/21/18 [History Last Taken Unknown] furosemide 20 mg PO BID 07/21/18 [History Last Taken Unknown] gabapentin 300 mg PO QHS 07/21/18 [History Last Taken Unknown] Glipizide Xl 2.5 mg PO BID 12/22/18 [History Last Taken Unknown] metformin 1,000 mg PO BREAKFAST 12/22/18 [History Last Taken Unknown] acetazolamide 125 mg PO TID 07/09/20 [History Last Taken Unknown] atorvastatin 20 mg PO QHS 07/09/20 [History Last Taken Unknown] escitalopram oxalate 10 mg PO DAILY 07/09/20 [History Last Taken Unknown] fenofibrate micronized 200 mg PO QHS 07/09/20 [History Last Taken Unknown] ferrous sulfate 324 mg PO QHS 07/09/20 [History Last Taken Unknown] acetaminophen 650 mg PO Q4H PRN PRN 09/09/21 [History Last Taken Unknown] albuterol sulfate [Ventolin HFA] 2 puff INHALATION Q4H PRN 09/09/21 [History Last Taken Unknown] cetirizine [Zyrtec] 10 mg PO DAILY 09/09/21 [History Last Taken Unknown] dulaglutide [Trulicity] 1.5 mg SUBCUT QWEEK 09/09/21 [History Last Taken Unknown] oseltamivir [Tamiflu] 75 mg PO BID 09/09/21 [History Last Taken Unknown] pantoprazole [Protonix] 40 mg PO DAILY 09/09/21 [History Last Taken Unknown] Allergy/AdvReac Type Severity Reaction Status Date / Time latex Allergy Rash Verified 12/21/18 22:08 levofloxacin [From Levaquin] AdvReac SPEEDS UP Verified 12/21/18 22:08 MY HEART AND SHUTS DOWN MY KIDNEYS mushrooms Allergy Anaphylaxis Uncoded 12/21/18 22:08 Family History unable to obtain Surgical History unable to obtain Social History (Updated 09/09/21 @ 12:[address] Vidhya Kennedy MD) housing: long-term Smoking Status: Current some day smoker substance use type: does not use ROS Review of Systems ROS Unobtainable: due to encephalopathy Vital Signs Vital Signs Vital Signs: 09/09/21 00:15 09/09/21 00:18 09/09/21 00:21 Temperature 97.8 F 97.4 F L Temperature Source Temporal Temporal Pulse Rate 92 102 H Respiratory Rate 18 18 Respiratory Effort Labored Respiratory Pattern Blood Pressure 114/68 114/68 Blood Pressure Mean 83 83 Pulse Ox 95 95 Oxygen Delivery Method Simple Mask Simple Mask Simple Mask Oxygen Flow Rate (L/min) 10 10 10 Fraction of Inspired Oxygen (FIO2) 09/09/21 00:45 09/09/21 02:04 09/09/21 02:18 Temperature 97.9 F Temperature Source Temporal Pulse Rate 80 88 78 Respiratory Rate 23 H 19 H 17 Respiratory Effort Respiratory Pattern Normal Blood Pressure 126/72 H 114/67 Blood Pressure Mean 90 82 Pulse Ox 93 92 92 Oxygen Delivery Method Room Air Room Air Oxygen Flow Rate (L/min) Fraction of Inspired Oxygen (FIO2) 40 09/09/21 03:00 09/09/21 03:02 09/09/21 03:20 Temperature Temperature Source Pulse Rate 108 H 83 Respiratory Rate 22 H 17 Respiratory Effort Respiratory Pattern Blood Pressure 122/68 H Blood Pressure Mean 86 Pulse Ox 98 93 Oxygen Delivery Method Bi-pap Oxygen Flow Rate (L/min) 60 Fraction of Inspired Oxygen (FIO2) 40 60 09/09/21 04:00 09/09/21 05:00 09/09/21 06:00 Temperature Temperature Source Pulse Rate 88 99 98 Respiratory Rate 22 H 21 H 23 H Respiratory Effort Respiratory Pattern Blood Pressure 107/73 104/65 118/62 Blood Pressure Mean 84 78 80 Pulse Ox 98 93 98 Oxygen Delivery Method Bi-pap Bi-pap Bi-pap Oxygen Flow Rate (L/min) 60 60 Fraction of Inspired Oxygen (FIO2) 60 09/09/21 06:35 09/09/21 07:00 09/09/21 07:18 Temperature 97.6 F L Temperature Source Temporal Pulse Rate 104 H 105 H 89 Respiratory Rate 16 20 H 25 H Respiratory Effort Respiratory Pattern Blood Pressure 102/78 90/65 Blood Pressure Mean 86 73 Pulse Ox 97 96 97 Oxygen Delivery Method Bi-pap Bi-pap Oxygen Flow Rate (L/min) Fraction of Inspired Oxygen (FIO2) 60 60 Weight Weight: 161.2 kg Body Mass Index (BMI) 61.0 Physical Exam Narrative Physical exam: General: Lethargic, on BiPAP HEENT: Atraumatic Oral: Moist Mucosa Neck: Supple Lungs: Diminished to auscultation Cardiovascular: HS I+II, regular, no murmurs Abdomen: Bowel Sounds Present, Soft, Non Tender Extremities: Bilateral leg edema trace/+1 Skin: No rashes, No breakdown Neurological: Lethargic Psych/Mental Status: Lethargic Results Lab / Micro Data Result Diagrams: 09/09/21 00:30 09/09/21 00:30 Labs: Laboratory Results - last 24 hr 09/09/21 00:30: WBC 8.1, RBC 3.74 L, Hgb 10.7 L, Hct 36.7 L, MCV 98.1, MCH 28.6, MCHC 29.2 L, RDW Std Deviation 55.1 H, RDW Coeff of Juliet 15.4 H, Plt Count 149 L, MPV 10.2, Immature Gran % (Auto) 1.600 H, Neut % (Auto) 90.3 H, Lymph % (Auto) 1.7 L, Ferry % (Auto) 4.3, Eos % (Auto) 1.7, Baso % (Auto) 0.4, Absolute Neuts (auto) 7.3, Absolute Lymphs (auto) 0.14 L, Nucleated RBC % 0, Differential Comment SCANNED 09/09/21 00:30: Sodium 141, Potassium 4.5, Chloride 99, Carbon Dioxide 38.0 H, Anion Gap 4 L, BUN 34 H, Creatinine 1.25 H, Estim Creat Clear Calc 43.40, Est GFR (MDRD) Af Amer 57 L, Est GFR (MDRD) Non-Af 47 L, BUN/Creatinine Ratio 27.2 H, Glucose 200 H, Calcium 8.4 L, Total Bilirubin 0.70, AST 82 H, ALT 48, Alkaline Phosphatase 75, Total Protein 7.9, Albumin 3.3, Globulin 4.6 H, Albumin/Globulin Ratio 0.7 L 09/09/21 00:30: B-Natriuretic Peptide 363.4 H ABG Data ABG results: ABG 09/09/21 09/09/21 00:31 04:16 Specimen Type ART ART Sample Site L Radial L Radial pH 7.11 L* 7.19 L* Bicarbonate Actual 44.9 H 42.2 H Total CO2 49 46 Base Excess 16 H 14 H O2 Saturation 96 76 L O2 % 40 ABG pCO2 140.0 H* 110.0 H* ABG pO2 123 H 54 L José Antonio Test Positive Positive Respiration Rate 14 O2 Delivery Device Oxy Mask BiPAP Liter Flow 10.0 Tidal Volume 500 POC PEEP 8 Crit Call To/Read Back Yes Yes Blood Gas Notified Whom er doc Radiology Impression Chest X-Ray 09/09/21 01:00 Assessment & Plan Assessment/Plan (1) Respiratory failure with hypoxia and hypercapnia: QUALIFIERS: Chronicity: acute on chronic Qualified Code(s): J96.21 - Acute and chronic respiratory failure with hypoxia; J96.22 - Acute and chronic respiratory failure with hypercapnia (2) Morbid (severe) obesity with alveolar hypoventilation: (3) Venous insufficiency (chronic) (peripheral): (4) Obesity hypoventilation syndrome: (5) Acute and chronic respiratory failure with hypoxia: (6) Type 2 diabetes mellitus: QUALIFIERS: Diabetes mellitus complication status: with other specified complication Diabetes mellitus termite control service representative insulin use: without termite control service representative use Qualified Code(s): E11.69 - Type 2 diabetes mellitus with other specified complication PLAN: 1. Acute on chronic combined respiratory failure, likely secondary to underlying chronic respiratory failure/obesity hypoventilation syndrome Patient is lethargic, in respiratory acidosis, started on BiPAP Continue BiPAP, CODE STATUS is DNR CC Hospice discussed with patient's daughter on admission, on board, awaiting hospice team Patient is Hospice appropriate. 2. Acute influenza, tested yesterday in the long-term, no lab reports seen Repeat respiratory panel Continue Tamiflu 3. Rest of the chronic medical conditions including paroxysmal atrial fibrillation, morbid obesity, hypertension, GERD, stable Rest of home meds continued 4. DVT PPx - SCDs 5. CODE STATUS?DNR CC from long-term records?clarified with the daughter, Nguyen who has a power of assistant prosecuting attorney for health paperwork. Daughter is agreeable to hospice Charges/Coding Visit Charges Inpatient E&M: 88850 Init Hosp L3
--- NOTE | 2021-09-09 08:24 | NURSING ---
Addendum entered by Nenita See 09/09/21 11:04: Hospice nurses here to assess pt. Addendum entered by Nenita See 09/09/21 09:50: Received call from [facility] stating they will be sending a RN to evaluate pt and speak with Hospice physician to determine if pt is stable enough to transfer today to [facility]. Dr Kennedy updated. Original Note: Call placed to hospice per Dr Kennedy's request to see if we would be able to get pt to the [facility] today. Spoke with Ginger at [facility] who will speak with her campus wellness coordinator to see if they are able to get daughter to sign paperwork today, as she had told them prior she was sick.
[2021-09-09] MEDS: Furosemide 20 MG/2 ML VIAL IV (17:22)
[2021-09-09] MEDS: Enoxaparin 40 MG/0.4 ML Syringe SC (21:36)
[2021-09-09] MEDS: 0.9% Saline Lock 10 ML Syringe IV (22:20)
[2021-09-10] VITALS (9 sets, daily range): BP systolic 105–119; BP diastolic 67–78; PULSE 66–100; RESP 14–22; TEMP 36.4–36.9; O2SAT 94–99
[2021-09-10] MEDS: 0.9% Saline Lock 10 ML Syringe IV ×4 (05:24→11:56)
[2021-09-10] MEDS: Escitalopram Oxalate 10 MG Tablet PO (08:51)
[2021-09-10] MEDS: Oseltamivir Phosphate 75 MG Capsule PO ×2 (08:51→23:13)
[2021-09-10] MEDS: dilTIAZem CD 240 MG Capsule PO (08:52)
[2021-09-10] MEDS: Enoxaparin 40 MG/0.4 ML Syringe SC ×2 (08:52→23:13)
[2021-09-10] MEDS: Loratadine 10 MG Tablet PO (08:52)
[2021-09-10] MEDS: Pantoprazole Sodium 40 MG Tablet PO (08:52)
[2021-09-10] MEDS: glipiZIDE 5 MG Tablet 2.5 MG PO ×2 (09:45→15:54)
[2021-09-10] MEDS: Furosemide 20 MG/2 ML VIAL IV (09:45)
[2021-09-10] MEDS: metFORMIN HCl 1,000 MG Tablet 1000 MG PO (09:46)
[2021-09-10] MEDS: Multivitamins,Ther W-Minerals Tablet 1 TABLET PO (09:46)
--- NOTE | 2021-09-10 12:27 | PCM.TXEXTCAR ---
Diet 09/10/21 09:30 Diet: Consistent Carb - Calorie Controlled Is pt able to select menu?: No How many daily calories?: 2000 calorie Routine Orders/Code Status O2 Liters per Minute: 12 O2 Frequency: Continuous Keep PO Greater than or Equal to (%): 94 Routine Lab Work: CBC (within 3 days) and BMP (within 3 days) Code Status: DNRCC-A Problem/Diagnosis (1) Respiratory failure with hypoxia and hypercapnia: Status: Acute (2) Morbid (severe) obesity with alveolar hypoventilation: Status: Chronic (3) Venous insufficiency (chronic) (peripheral): Status: Chronic (4) Obesity hypoventilation syndrome: Status: Acute (5) Acute and chronic respiratory failure with hypoxia: Status: Chronic (6) Type 2 diabetes mellitus: Status: Chronic Comment: HgbA1c 06/2016 6.5%. Allergies/Procedures Done in Hospital Allergies latex Allergy (Verified 12/21/18 22:08) Rash levofloxacin [From Levaquin] Adverse Reaction (Verified 12/21/18 22:08) SPEEDS UP MY HEART AND SHUTS DOWN MY KIDNEYS mushrooms Allergy (Uncoded 12/21/18 22:08) Anaphylaxis Type of Care/Length of Stay Estimated LOS: Convalescent Care Less Than 30 days Type of Care Needed: Skilled Rehab Potential: Fair Prognosis: Fair Additional Orders/Day of Discharge Day of Discharge: 09/10/21 Dietary and Speech Recommendations Dietitian Recommendations/Changes: As medically able, rec YO to 2000 vilma controlled diet w/ 4 oz glucerna shake 4x/day w/ medpass If NPO status to continue and if in accordance with pt / family wishes, rec nutrition support Discharge Plan Admission Admit Date/Time: 09/09/21 17:43 Primary Reason for Your Visit: Resp failure Attending Provider: Vidhya Kennedy Primary Care Provider: Merrick Mace Discharge Orders/Prescriptions Prescriptions: New prednisone 20 mg tablet 40 mg PO DAILY 5 Days Qty: 10 RF: 0 Continued diltiazem HCl 240 MG capsule,extended release 24hr 240 mg PO DAILY RF: 0 furosemide 20 MG tablet 20 mg PO BID RF: 0 Multiple Vitamin-Minerals 1 EACH tablet 1 tab PO DAILY RF: 0 gabapentin 300 MG capsule 300 mg PO QHS RF: 0 metformin 1,000 MG tablet 1,000 mg PO BREAKFAST RF: 0 Glipizide Xl 2.5 mg PO BID RF: 0 atorvastatin 20 MG tablet 20 mg PO QHS RF: 0 acetazolamide 250 MG tablet 125 mg PO TID RF: 0 fenofibrate micronized 200 MG capsule 200 mg PO QHS RF: 0 escitalopram oxalate 10 MG tablet 10 mg PO DAILY RF: 0 ferrous sulfate 324 MG tablet,delayed release (DR/EC) 324 mg PO QHS RF: 0 acetaminophen 325 MG tablet 650 mg PO Q4H PRN PRN (Reason: Pain 1-10 Or Fever) RF: 0 pantoprazole [Protonix] 40 mg Tablet,Delayed Release (Dr/Ec) 40 mg PO DAILY RF: 0 albuterol sulfate [Ventolin HFA] 90 mcg/actuation Hfa Aerosol Inhaler 2 puff INHALATION Q4H PRN (Reason: Shortness Of Breath) RF: 0 Zyrtec 10 mg Capsule 10 mg PO DAILY RF: 0 Trulicity 1.5 mg/0.5 mL Pen Injector 1.5 mg SUBCUT QWEEK RF: 0 oseltamivir [Tamiflu] 75 mg Capsule 75 mg PO BID Qty: 0 RF: 0 Referrals / Follow Up: Merrick Mace MD [Primary Care Provider] - Disposition Disposition (needs filled in before D/C Order can be placed): [facility]
--- NOTE | 2021-09-10 13:46 | CASEMGMT ---
Social Work Phone call placed to [facility] and spoke to Arely. Pt is approved for the [facility] today. Arely will contact pt daughter to complete admission paperwork and will then notify this SW with admission time. Per Arely, the mobile unit may be able to pick pt up. SW will await return call from Arely at [facility]. RADHA Pelayo
--- NOTE | 2021-09-10 14:36 | PN.HOSP_ITS ---
Subjective Subjective Follow-up on acute respiratory failure: Patient was seen and examined. Patient is much improved. She is currently on 6 L of oxygen. She does not want to be discharged to the [facility] today. She admits to feeling much improved. Objective Data Objective Data Vital Signs: Vital Signs Temp Pulse Resp BP Pulse Ox 97.5 F L 66 20 H 119/76 94 09/10/21 13:25 09/10/21 13:25 09/10/21 13:25 09/10/21 13:25 09/10/21 13:25 Oxygen Flow Rate (L/min) 94 Oxygen Delivery Method High Flow Weight: 161.592 kg Body Mass Index (BMI) 69.5 Intake & Output: Intake and Output for Last 24 Hours 09/08/21 09/09/21 09/10/21 23:59 23:59 23:59 Intake Total 0 / 0 600 / 600 Output Total 1000 / 1200 1950 / 1950 Balance -1000 / -1200 -1350 / -1350 Lab / Micro Data Result Diagrams: 09/09/21 00:30 09/09/21 00:30 Micro: Microbiology 09/09/21 14:30 Mucosa - Nose Respiratory Panel (PCR) - Final Influenza A (Subtype H3) ABG Data ABG results: ABG 09/09/21 04:16 Specimen Type ART Sample Site L Radial pH 7.19 L* Bicarbonate Actual 42.2 H Total CO2 46 Base Excess 14 H O2 Saturation 76 L O2 % 40 ABG pCO2 110.0 H* ABG pO2 54 L José Antonio Test Positive Respiration Rate 14 O2 Delivery Device BiPAP Tidal Volume 500 POC PEEP 8 Crit Call To/Read Back Yes Physical Exam Narrative Physical exam: General: Alert, oriented x3, not pale, on 6L oxygen HEENT: Atraumatic Oral: Moist Mucosa Neck: Supple Lungs: Diminished to auscultation, no wheezes Cardiovascular: HS I+II, regular, no murmurs Abdomen: Bowel Sounds Present, Soft, Non Tender Extremities: Bilateral leg edema trace/+1 Skin: No rashes, No breakdown Assessment & Plan Assessment/Plan (1) Respiratory failure with hypoxia and hypercapnia: QUALIFIERS: Chronicity: acute on chronic Qualified Code(s): J96.21 - Acute and chronic respiratory failure with hypoxia; J96.22 - Acute and chronic respiratory failure with hypercapnia (2) Morbid (severe) obesity with alveolar hypoventilation: (3) Venous insufficiency (chronic) (peripheral): (4) Obesity hypoventilation syndrome: (5) Acute and chronic respiratory failure with hypoxia: (6) Type 2 diabetes mellitus: QUALIFIERS: Diabetes mellitus complication status: with other specified complication Diabetes mellitus alf insulin use: without manager long term care use Qualified Code(s): E11.69 - Type 2 diabetes mellitus with other specified complication PLAN: 1. Acute on chronic combined respiratory failure, likely secondary to underlying chronic respiratory failure/obesity hypoventilation syndrome, improved. Currently on 6L oxygen Continue on home lasix 20mg po bid Trial of prednisone of 40mg po daily x5 days Patient appears not appropriate for inpatient hospice unit at this time - she will be discharged to [facility] Will continue to wean off oxygen 2. Acute influenza A, continue on isolation and Tamiflu(3 more days) 3. Rest of the chronic medical conditions including paroxysmal atrial fibrillation, morbid obesity, hypertension, GERD, stable Rest of home meds continued 4. DVT PPx - SCDs 5. Disposition: DC to [place] in am with Hospice referral. Charges/Coding Visit Charges Inpatient E&M: 30584 Subs Hosp L2
--- NOTE | 2021-09-10 14:46 | CASEMGMT ---
Social Work Return call from Arely at Hospice and the [facility] is able to accept pt back after 4 today. KHUSHBOO updated physician and RN. Pt oxygenation and alertness is improving. Pt now would be more appropriate to return to [facility] with hospice to follow up there. KHUSHBOO met with pt and sister in pt room to discuss discharge plan. Pt stating she wants to return to [facility] and SW did discuss hospice with her. Pt is agreeable to a hospice consult upon return to [facility]. Leeann from [facility] here to see pt and was updated on change of plan and pt not going to IPU. Leeann states she will contact Arely and the I[facility] and inform. Phone call to Teto at [facility] and updated that pt will be discharging back to [facility] tomorrow with order for hospice consult. Plan: Return to [facility] tomorrow with Hospice Consult RADHA Pelayo
[2021-09-10] MEDS: Insulin Lispro 100 UNIT/ML INSULN.PEN SC ×2 (15:53→23:13)
[2021-09-10 16:11] LABS: Bedside Glucose 226 mg/dL (74-106)
--- NOTE | 2021-09-10 16:22 | CASEMGMT ---
Social Work SW spoke with Leeann [facility]. Pt was seen and signed papers for hospice care when she returns to [facility]. KHUSHBOO will notify hospice with discharge date/time. RADHA Bundy
[2021-09-10 23:10] LABS: Bedside Glucose 276 mg/dL (74-106)
[2021-09-10] MEDS: Menthol/Lanolin/Calamine/Znox 113 GM Tube 1 APPLIC TOPICAL (23:12)
[2021-09-10] MEDS: Nystatin Powder 15gm Bottle 1 APPLIC TOPICAL (23:12)
[2021-09-10] MEDS: Ferrous Sulfate 325 MG Tablet PO (23:13)
[2021-09-10] MEDS: Atorvastatin Calcium 20 MG Tablet PO (23:13)
[2021-09-10] MEDS: Gabapentin 300 MG Capsule PO (23:13)
[2021-09-10] MEDS: Fenofibrate 145 MG Tablet PO (23:14)
[2021-09-11 02:16] VITALS: BP 115/78; PULSE 79; RESP 20; TEMP 37.1; O2SAT 95
[2021-09-11 03:01] VITALS: O2SAT 96
[2021-09-11 04:52] VITALS: O2SAT 95
[2021-09-11] MEDS: Nystatin Powder 15gm Bottle 1 APPLIC TOPICAL (05:59)
[2021-09-11 06:46] LABS: Bedside Glucose 149 mg/dL (74-106)
[2021-09-11 07:12] VITALS: O2SAT 98
[2021-09-11] MEDS: glipiZIDE 5 MG Tablet 2.5 MG PO (08:20)
[2021-09-11] MEDS: dilTIAZem CD 240 MG Capsule PO (08:20)
[2021-09-11] MEDS: Escitalopram Oxalate 10 MG Tablet PO (08:20)
[2021-09-11] MEDS: predniSONE 20 MG Tablet 40 MG PO (08:20)
[2021-09-11] MEDS: metFORMIN HCl 1,000 MG Tablet 1000 MG PO (08:20)
[2021-09-11] MEDS: Multivitamins,Ther W-Minerals Tablet 1 TABLET PO (08:20)
[2021-09-11] MEDS: Pantoprazole Sodium 40 MG Tablet PO (08:21)
[2021-09-11] MEDS: Oseltamivir Phosphate 75 MG Capsule PO (08:21)
[2021-09-11] MEDS: Loratadine 10 MG Tablet PO (08:21)
[2021-09-11] MEDS: Menthol/Lanolin/Calamine/Znox 113 GM Tube 1 APPLIC TOPICAL (08:22)
[2021-09-11 08:25] VITALS: O2SAT 96
[2021-09-11 10:20] VITALS: BP 136/72; PULSE 88; RESP 16; TEMP 37.2; O2SAT 98
[2021-09-11] MEDS: Insulin Lispro 100 UNIT/ML INSULN.PEN SC (11:10)
[2021-09-11 11:16] LABS: Bedside Glucose 154 mg/dL (74-106)
--- NOTE | 2021-09-11 13:26 | CASEMGMT ---
Social Work Pt ready for discharge today for return to [facility], intermediate level of care. Pt notified and agreeable to discharge. SW offered to call pt dgt to update on d/c and pt declined stating she is working and pt will notify her after work. Orders faxed to [facility] and to [facility]. Transportation set up with [facility] for 2:30 order picker via cot. VM left with Teto at [facility] and [facility] informing of discharge and time. Plan: Discharge to [facility] cash control specialist care under hospice care. RADHA Pelayo
--- NOTE | 2021-09-11 13:59 | NURSING ---
report called to ZHENG Olivo at [facility] for discharge to [facility] with hospice.
--- NOTE | 2021-09-11 18:32 | DS.PCM_ITS ---
Providers Date of Admission: 09/09/21 Date of Discharge: 09/11/21 Primary Care Physician: Dr. Merrick Mace MD Reason For Visit: RESPIRATORY FAILURE, Diagnosis Discharge Diagnosis (1) Respiratory failure with hypoxia and hypercapnia: Status: Acute Code(s): J96.91 - Respiratory failure, unspecified with hypoxia; J96.92 - Respiratory failure, unspecified with hypercapnia Qualifiers: Chronicity: acute on chronic Qualified Code(s): J96.21 - Acute and chronic respiratory failure with hypoxia; J96.22 - Acute and chronic respiratory failure with hypercapnia (2) Morbid (severe) obesity with alveolar hypoventilation: Status: Chronic Code(s): E66.2 - Morbid (severe) obesity with alveolar hypoventilation (3) Venous insufficiency (chronic) (peripheral): Status: Chronic (4) Obesity hypoventilation syndrome: Status: Acute Code(s): E66.2 - Morbid (severe) obesity with alveolar hypoventilation (5) Acute and chronic respiratory failure with hypoxia: Status: Chronic Code(s): J96.21 - Acute and chronic respiratory failure with hypoxia (6) Type 2 diabetes mellitus: Status: Chronic Code(s): E11.9 - Type 2 diabetes mellitus without complications Qualifiers: Diabetes mellitus complication status: with other specified complication Diabetes mellitus personnel generalist manager insulin use: without personnel generalist manager use Qualified Code(s): E11.69 - Type 2 diabetes mellitus with other specified complication Plan: 1. Acute on chronic combined respiratory failure #2 acute influenza A #3 paroxysmal atrial fibrillation #4 morbid obesity #5 essential hypertension #6 type 2 diabetes Medications at Discharge Home Medications Multiple Vitamin-Minerals 1 tab PO DAILY 07/21/18 diltiazem HCl 240 mg PO DAILY 07/21/18 furosemide 20 mg PO BID 07/21/18 gabapentin 300 mg PO QHS 07/21/18 Glipizide Xl 2.5 mg PO BID 12/22/18 metformin 1,000 mg PO BREAKFAST 12/22/18 acetazolamide 125 mg PO TID 07/09/20 atorvastatin 20 mg PO QHS 07/09/20 escitalopram oxalate 10 mg PO DAILY 07/09/20 fenofibrate micronized 200 mg PO QHS 07/09/20 ferrous sulfate 324 mg PO QHS 07/09/20 Trulicity 1.5 mg SUBCUT QWEEK 09/09/21 Zyrtec 10 mg PO DAILY 09/09/21 acetaminophen 650 mg PO Q4H PRN PRN 09/09/21 albuterol sulfate [Ventolin HFA] 2 puff INHALATION Q4H PRN 09/09/21 pantoprazole [Protonix] 40 mg PO DAILY 09/09/21 oseltamivir [Tamiflu] 75 mg PO BID #0 cap 09/10/21 prednisone 40 mg PO DAILY 5 Days #10 tab 09/10/21 Hospital Course Operations None Procedures None Summary of Care Provided Minutes Spent on Discharge: 33 Hospital Course: This 56-year-old white female who is a [facility] a [facility] was transported to [facility] ER for evaluation of shortness of breath. Patient was a DNR comfort care only and a ctually had an order for no transportation to the hospital but was mistakenly sent to the ER for evaluation of the shortness of breath. Work-up in the emergency room included a chest x-ray which showed bilateral hilar prominence and prominent lung markings in the lower lung bailey, CBC was remarkable for a hemoglobin of 10.7, chemistry profile showed a BUN of 34 and a creatinine of 1.25, beta natruretic peptide was elevated at 363, blood gases were obtained on BiPAP and showed a pH of 7.19, PCO2 of 110, and PO2 of 54. Patient's family was contacted to the patient's lethargy and confusion, they requested the patient be admitted to the hospital and see hospice in consultation. Patient was admitted to PCU, she was kept on her outpatient medications, she was continued on BiPAP, and her Tamiflu was continued as she was recently diagnosed at the longterm as having influenza A. Patient became more responsive during her hospitalization and she was ultimately taken off BiPAP and was placed on 6 L nasal cannula oxygen. On 09/11/2021, patient was seen and examined: On examination she appeared older than her stated age, she does not appear to be in any distress. Vital signs as documented. Skin warm and dry and without overt rashes. Neck without JVD, thyroid appears normal, trachea is midline, neck is supple. Lungs clear, normal air movement was noted. Heart exam notable for regular rhythm, normal sounds and absence of murmurs, rubs or gallops. Abdomen unremarkable and without evidence of organomegaly, masses, or abdominal aortic enlargement, bowel sounds are present in all 4 quadrants, no abdominal tenderness was noted. Extremities nonedematous, no cyanosis was noted, no clubbing was noted. Neuro: Cranial nerves II through XII are grossly intact, no focal motor deficits were noted, sensation to light touch and pinprick is intact, motor exam 5/5 throughout. Psych: Patient is alert and oriented x3, she does not appear anxious or depressed, she does not appear agitated. Patient appeared stable for discharge to her skilled care facility, she will be seen by hospice there. Patient was discharged on 09/11/2021. Weight / BMI Weight Weight: 161.592 kg Body Mass Index (BMI) 69.5 ABG / Lab / Microbiology Data Result Diagrams: 09/09/21 00:30 09/09/21 00:30 Laboratory: Laboratory Results - last 24 hr 09/10/21 22:54: POC Glucose 276 H 09/11/21 06:39: POC Glucose 149 H 09/11/21 11:10: POC Glucose 154 H Microbiology: Microbiology 09/11/21 10:54 Nasal Secretion SARS-CoV-2 Antigen (Rapid) - Final 09/09/21 14:30 Mucosa - Nose Respiratory Panel (PCR) - Final Influenza A (Subtype H3) Meaningful Use Info Meaningful Use Diagnoses (Choose all that apply): None applicable Discharge Plan Admission Admit Date/Time: 09/09/21 17:43 Primary Reason for Your Visit: Resp failure Attending Provider: Merrick Wall Primary Care Provider: Merrick Mace Discharge Orders/Prescriptions Prescriptions: New prednisone 20 mg tablet 40 mg PO DAILY 5 Days Qty: 10 RF: 0 Continued diltiazem HCl 240 MG capsule,extended release 24hr 240 mg PO DAILY RF: 0 furosemide 20 MG tablet 20 mg PO BID RF: 0 Multiple Vitamin-Minerals 1 EACH tablet 1 tab PO DAILY RF: 0 gabapentin 300 MG capsule 300 mg PO QHS RF: 0 metformin 1,000 MG tablet 1,000 mg PO BREAKFAST RF: 0 Glipizide Xl 2.5 mg PO BID RF: 0 atorvastatin 20 MG tablet 20 mg PO QHS RF: 0 acetazolamide 250 MG tablet 125 mg PO TID RF: 0 fenofibrate micronized 200 MG capsule 200 mg PO QHS RF: 0 escitalopram oxalate 10 MG tablet 10 mg PO DAILY RF: 0 ferrous sulfate 324 MG tablet,delayed release (DR/EC) 324 mg PO QHS RF: 0 acetaminophen 325 MG tablet 650 mg PO Q4H PRN PRN (Reason: Pain 1-10 Or Fever) RF: 0 pantoprazole [Protonix] 40 mg Tablet,Delayed Release (Dr/Ec) 40 mg PO DAILY RF: 0 albuterol sulfate [Ventolin HFA] 90 mcg/actuation Hfa Aerosol Inhaler 2 puff INHALATION Q4H PRN (Reason: Shortness Of Breath) RF: 0 Zyrtec 10 mg Capsule 10 mg PO DAILY RF: 0 Trulicity 1.5 mg/0.5 mL Pen Injector 1.5 mg SUBCUT QWEEK RF: 0 oseltamivir [Tamiflu] 75 mg Capsule 75 mg PO BID Qty: 0 RF: 0 Referrals / Follow Up: Merrick Mace MD [Primary Care Provider] - Disposition Disposition (needs filled in before D/C Order can be placed): [facility] Facility Charges/Coding Visit Charges Inpatient E&M: 03493 Disch Hosp
== END 2021-09-11 14:47 | disposition skilled nursing facility (03) | DRG 189 ==
LOC: ED 07:14 → PCU 07:37
PROVIDERS: Admitting Provider Internal Medicine; Emergency Provider Emergency Medicine; PCP Family Medicine; Visit Provider Internal Medicine
DX: J96.21 Acute and chronic respiratory failure with hypoxia (principal); E66.2 Morbid (severe) obesity with alveolar hypoventilation; Z68.44 Body mass index [BMI] 60.0-69.9, adult; I50.32 Chronic diastolic (congestive) heart failure; I11.0 Hypertensive heart disease with heart failure; E11.9 Type 2 diabetes mellitus without complications; D64.9 Anemia, unspecified; F17.200 Nicotine dependence, unspecified, uncomplicated; J96.22 Acute and chronic respiratory failure with hypercapnia; I48.0 Paroxysmal atrial fibrillation; J10.1 Influenza due to other identified influenza virus with other respiratory manifestations; I87.2 Venous insufficiency (chronic) (peripheral); K21.9 Gastro-esophageal reflux disease without esophagitis; Z79.84 Long term (current) use of oral hypoglycemic drugs; Z51.5 Encounter for palliative care; Z66 Do not resuscitate; Z79.899 Other long term (current) drug therapy
CPT/HCPCS: 36600; 51702; 71045; 80053; 82803; 82962; 83880; 85025; 87633; 87811; 94002; 94003; 94762; 97802; 99285; A4216; J1940

== ENCOUNTER → 2021-10-20 | Outpatient (REF) | payer SELFPAY ==
[2021-10-22 08:31] LABS: Mucous, Urine 0 SEEN /hpf (<or=2+)
[2021-10-22 09:01] LABS: Color, Urine Yellow (Yellow); Glucose, Dipstick Normal (Normal); Ketone-Dipstick Negative (Negative); Leukocyte Esterase-Dipstick 500 /ul (Negative); Nitrite-Dipstick Negative (Negative); Occult Blood-Urine 250 /ul (Negative); Protein-Dipstick 100 mg/dl (Negative); Urine Bilirubin Dipstick Negative (Negative); Urine Clarity Cloudy (Clear); Urine Urobilinogen 1 mg/dl (Normal)
[2021-10-22 09:14] LABS: Bacteria 3+ /hpf (None Seen); Red Blood Cells-Urine 5-10 SEEN /hpf (0-5); Squamous Epithelial Cells - UA 0-5 SEEN /hpf (5-10); White Blood Cells 10-25 SEEN /hpf (0-5)
[2021-10-22 09:15] LABS: Triple Phosphate Crystals Ur 3+ /hpf (<or=1+)
== END | disposition home or self-care (01) ==
LOC: OLS.SW500 20:00
PROVIDERS: PCP Family Medicine; Visit Provider Family Medicine
DX: N39.0 Urinary tract infection, site not specified (principal)
CPT/HCPCS: 81001; 87077; 87086; 87088; 87186